=== PATIENT | male | born 1945 | race Caucasian/White ===

== ENCOUNTER 2022-08-12 07:51 | Outpatient (OUT) | payer MEDICARE, OTHER, BC, SELFPAY ==
--- NOTE | 2022-08-12 08:06 | CT_ITS ---
[place] [id number] Patient Name: REMI ZARCO MRN: [id number] date: 1945 Sex: M Assigned Patient Location: CT Current Patient Location: CT Accession/Order Number: [id number] Exam Date: 08/12/2022 08:25 Report Date: 08/12/2022 09:34 At the request of: LEXI HERNANDEZ Procedure: CT ankle LT wo con EXAMINATION: CT ankle LT wo con HISTORY: Primary Osteoarthritis Left Ankle,[id number] ; total ankle replacement protocol; left ankle partial fusion 2021 COMPARISON: XR ankle left 07/23/2022 TECHNIQUE: Multi-planar CT images were created without IV contrast. Dose reduction techniques were achieved by using automated exposure control and/or adjustment of mA and/or kV according to patient size and/or use of iterative reconstruction technique. FINDINGS: BONES: Posterior calcaneal osteotomy and repair. Posterior and anterior talocalcaneal fusion via lag screws. Talonavicular fusion via dorsal bone staple with fracture of the proximal leg of the stable. Medial cuneiform osteotomy and wedge placement. Marked degenerative changes of the first tarsal-metatarsal joint. Marked degenerative changes ankle joint with complete loss of the joint space, subchondral sclerosis, and numerous subchondral cysts. Prior knee replacement. SOFT TISSUES: Soft tissue swelling and subcutaneous edema surrounding the distal lower extremity, ankle, and foot. EFFUSION: None visible. OTHER: Negative. IMPRESSION: 1. Stable prior surgical changes. Hardware appears intact except for talonavicular bone staple which has a fracture proximal leg. 2. Advanced degenerative changes of the ankle joint. Electronically authenticated by: GERARDO AUGUSTIN Date: 08/12/2022 09:34
== END 2022-08-12 07:52 ==
PROVIDERS: PCP Family Medicine; Visit Provider Podiatrist Foot & Ankle Surgery
DX: M19.072 Primary osteoarthritis, left ankle and foot (principal); M21.072 Valgus deformity, not elsewhere classified, left ankle
CPT/HCPCS: 73700

== ENCOUNTER 2022-08-27 10:22 | Outpatient (OUT) | payer MEDICARE, OTHER, BC, SELFPAY ==
--- NOTE | 2022-08-27 10:23 | XR_ITS ---
[address] [address] Patient Name: REMI ZARCO MRN: [id number] date: 1945 Sex: M Assigned Patient Location: [facility] Current Patient Location: [facility] Accession/Order Number: [id number] Exam Date: 08/27/2022 10:23 Report Date: 08/27/2022 12:09 At the request of: CHRISTINA SZYMANSKI Procedure: XR foot LT min 3V PROCEDURE: XR foot LT min 3V HISTORY: LEFT FOOT PAIN COMPARISON: XR foot left 07/23/2022 FINDINGS: BONES:Prior calcaneal osteotomy and fusion. Hindfoot and midfoot fusion via multiple screws and a single bone staple. Prior fracture of the proximal leg of the bone staple and of one of the midfoot likely screws. Prior osteotomy and wedge placement within the medial cuneiform. Moderate degenerative changes of the talonavicular and majority of the tarsal-metatarsal joints. Flattening of the plantar arch. No appreciable acute bone fracture. SOFT TISSUES:Mild soft tissue swelling. EFFUSION:None visible. OTHER: Negative. IMPRESSION: 1. Stable surgical changes and hardware fractures as detailed above. No new findings. Electronically authenticated by: GERARDO AUGUSTIN Date: 08/27/2022 12:09
== END 2022-08-27 10:23 ==
LOC: RAD 10:23
PROVIDERS: PCP Family Medicine; Visit Provider Student in an Organized Health Care Education/Training Program
DX: M79.672 Pain in left foot (principal)
CPT/HCPCS: 73630

== ENCOUNTER 2022-10-01 12:59 | Outpatient (OUT) | payer MEDICARE, OTHER, BC, SELFPAY ==
--- NOTE | 2022-10-01 13:01 | XR_ITS ---
The [address] [address] Patient Name: REMI ZARCO MRN: [id number] date: 1945 Sex: M Assigned Patient Location: [facility] Current Patient Location: [facility] Accession/Order Number: [id number] Exam Date: 10/01/2022 13:01 Report Date: 10/01/2022 14:40 At the request of: LEXI HERNANDEZ Procedure: XR foot LT min 3V EXAM: XR foot LT min 3V HISTORY: Left foot pain after subtalar fusion and talonavicular fusion. Concern at the medial screws. COMPARISON: 08/27/2020. TECHNIQUE: 4 views left foot. FINDINGS: No interval acute fracture or dislocation left foot. Diffuse soft tissue swelling and edema. Slight continued progression of healing at the posterior calcaneal osteotomy with 2 intact internal cannulated fixation screws across the subtalar joint. There is talonavicular fixation with medial screw located 11 mm proud of the navicular cortical surface and the more lateral screw located 6 mm proud of the surface. The more lateral internal fixation screw demonstrates fracture with stable mild displacement within the talar neck region. Most laterally there is a talonavicular bone staple which demonstrates a fracture similar to prior. Prior postoperative change at the medial cuneiform with metallic wedges stable. Stable alignment of the midfoot with severe degenerative change and pes planus. XR/XR foot LT min 3V IMPRESSION: Overall similar exam compared to prior left foot with unchanged appearance to the talonavicular hardware as detailed. Electronically authenticated by: HAMILTON BAUTISTA Date: 10/01/2022 14:40
== END 2022-10-01 13:00 | disposition home or self-care (01) ==
LOC: RAD 12:59
PROVIDERS: PCP Family Medicine; Visit Provider Podiatrist Foot & Ankle Surgery
DX: M79.672 Pain in left foot (principal); T84.218A Breakdown (mechanical) of internal fixation device of other bones, initial encounter; M21.42 Flat foot [pes planus] (acquired), left foot
CPT/HCPCS: 73630

== ENCOUNTER 2022-10-31 13:50 | Outpatient (OUT) | payer MEDICARE, OTHER, BC, SELFPAY ==
--- NOTE | 2022-10-31 14:20 | CT_ITS ---
The [address] [address] Patient Name: REMI ZARCO MRN: [id number] date: 1945 Sex: M Assigned Patient Location: CT Current Patient Location: CT Accession/Order Number: [id number] Exam Date: 10/31/2022 14:15 Report Date: 10/31/2022 18:05 At the request of: LEXI HERNANDEZ Procedure: CT ankle LT wo con EXAM: CT ankle LT wo con HISTORY: Postoperative pain COMPARISON: X-ray 10/01/2022 TECHNIQUE: Axial CT imaging is performed. Sagittal and coronal reformatted/reconstructed sequences were additionally performed. FINDINGS: Patient is status post calcaneal osteotomy. The osteotomy site exhibits no discrete osseous incorporation (sagittal 74 and axial 157). 2 retrograde screws from the calcaneus extend into the talus. The posterior subtalar joint is still visualized in exhibits no arthrodesis. A screw extends from the talar neck into the calcaneus. This screw is prominent but approximately 5.27 mm of the screw head superior to the cortex of the talar neck and residing within the adjacent soft tissues. Additionally, the distal aspect of the screw extends 10.5 mm from the plantar aspect of the calcaneus into the plantar soft tissues. A dorsal skin staple of the talonavicular articulation exhibits a fracture of the proximal leg. Two distal to proximal screws through the medial navicular into the talus are proud approximately 15 mm and 9.5 mm from the cortex of the navicular, with the tips in the adjacent soft tissues. Lucency surrounds the talus components of the medial screw. Severe degenerative changes of the talocrural articulation. The talus is angulated medial within the talocrural articulation. This results in abutment of the distal fibula with the lateral talar process. 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 Electronically authenticated by: YOU GIL Date: 10/31/2022 18:05
== END 2022-10-31 13:51 | disposition home or self-care (01) ==
LOC: CT 13:50
PROVIDERS: PCP Family Medicine; Visit Provider Podiatrist Foot & Ankle Surgery
DX: M19.072 Primary osteoarthritis, left ankle and foot (principal)
CPT/HCPCS: 73700

== ENCOUNTER 2022-11-12 09:56 | Outpatient (OUT) | payer MEDICARE, OTHER, BC, SELFPAY ==
--- NOTE | 2022-11-12 | XR_ITS ---
The [address] [address] Patient Name: REMI ZARCO MRN: [id number] date: 1945 Sex: M Assigned Patient Location: [facility] Current Patient Location: [facility] Accession/Order Number: [id number] Exam Date: 11/12/2022 10:10 Report Date: 11/12/2022 10:59 At the request of: LEXI HERNANDEZ Procedure: XR foot LT min 3V PROCEDURE: XR foot LT min 3V DATE: 11/12/2022 9:10 AM CDT COMPARISONS: 10/01/2022 CLINICAL INDICATION: LEFT FOOT PAIN FINDINGS: There is no evidence of fractures or other acute osseous abnormalities. There is evidence of complete or near complete healing of the posterior os calcis osteotomy. There are multiple screws, pins and debbie of the hindfoot and midfoot, stable in appearance from previous exam. A dorsal staple shows fracture on one aspect, stable. One of the oblique mid foot screws shows fractured near its distal aspect. These are stable findings. Pes planus deformity again identified. Moderate mid foot and first metatarsal phalangeal degenerative change again identified. Diffuse soft tissue swelling about the foot is again identified. XR/XR foot LT min 3V IMPRESSION: Extensive midfoot and hindfoot postop changes. Alignment of the osseous structures remain stable. Disruption of 2 of the hardware structures remain stable.. Pes planus deformity. Diffuse soft tissue swelling. Electronically authenticated by: GAURAV LIANG Date: 11/12/2022 10:59
== END 2022-11-12 09:57 | disposition home or self-care (01) ==
LOC: RAD 09:56
PROVIDERS: PCP Family Medicine; Visit Provider Podiatrist Foot & Ankle Surgery
DX: M79.672 Pain in left foot (principal)
CPT/HCPCS: 73630

== ENCOUNTER 2022-11-12 11:14 | Outpatient (OUT) | payer MEDICARE, OTHER, BC, SELFPAY ==
[2022-11-12 12:19] LABS: Erythrocyte Sedimentation Rate 26 mm/hr (<=20)
[2022-11-12 12:31] LABS: Basophils Absolute Auto 0.1 10^3/uL (0.0-0.1); Basophils Percent Auto 0.9 % (0.2-2.0); Eosinophils Absolute Auto 0.2 10^3/uL (0.0-0.7); Eosinophils Percent Auto 3.8 % (0.9-7.0); Hematocrit 38.8 % (42.0-54.0); Immature Granulocytes Abs Auto 0.02 10^3/uL (0.00-0.03); Immature Granulocytes Pct Auto 0.4 % (0.0-0.5); Lymphocytes Absolute Auto 1.2 10^3/uL (1.2-3.8); Lymphocytes Percent Auto 20.7 % (20.5-60.0); Mean Corpuscular HGB Conc 33.5 g/dL (29.9-35.2); Mean Corpuscular Hemoglobin 29.8 pg (25.9-34.0); Mean Platelet Volume 10.4 fL (9.5-13.5); Monocytes Absolute Auto 0.4 10^3/uL (0.3-0.8); Neutrophils Absolute Auto 3.7 10^3/uL (1.4-6.5); Neutrophils Percent Auto 67.2 % (43.0-75.0); Platelet Count 203 10^3/uL (150-450); Red Blood Count 4.36 10^6/uL (4.70-6.10); Red Cell Distribution Width 14.3 % (11.0-15.0); White Blood Count 5.6 10^3/uL (4.0-11.0)
[2022-11-12 13:43] LABS: Anion Gap 10.8; BUN Creatinine Ratio 19.4; Calcium 9.2 mg/dL (8.5-10.1); Carbon Dioxide 26.6 mmol/L (21.0-32.0); Chloride 104 mmol/L (98-107); Estimated GFR (African America >60 (>=60); Estimated GFR (Non-African Ame >60 (>=60); Glucose 80 mg/dL (74-106); Potassium 4.4 mmol/L (3.5-5.1); Sodium 137 mmol/L (136-145)
== END 2022-11-12 11:15 | disposition home or self-care (01) ==
LOC: LAB 11:18
PROVIDERS: PCP Family Medicine; Visit Provider Podiatrist Foot & Ankle Surgery
DX: S91.302A Unspecified open wound, left foot, initial encounter (principal)
CPT/HCPCS: 36415; 80048; 85025; 85652

== ENCOUNTER 2022-11-26 10:16 | Outpatient (OUT) | payer MEDICARE, OTHER, BC, SELFPAY ==
--- NOTE | 2022-11-26 | XR_ITS ---
[address] [address] Patient Name: REMI ZARCO MRN: [id number] date: 1945 Sex: M Assigned Patient Location: [facility] Current Patient Location: [facility] Accession/Order Number: [id number] Exam Date: 11/26/2022 10:27 Report Date: 11/26/2022 11:36 At the request of: LEXI HERNANDEZ Procedure: XR foot LT min 3V PROCEDURE: XR foot LT min 3V HISTORY: LEFT FOOT PAIN COMPARISON: XR foot left 11/12/2022 FINDINGS: BONES:Stable hindfoot fusion and talonavicular fusion. Stable fracture of bone staple raising the talonavicular joints and of the lag screw bridging the talonavicular joint. Prior osteotomy and wedge placement within the medial cuneiform. Moderate degenerative changes of the tarsal-metatarsal joints and the first metatarsophalangeal joint, and ankle joint. SOFT TISSUES:Mild soft tissue swelling anterior to the ankle and dorsal to the distal foot. EFFUSION:None visible. OTHER: Negative. XR/XR foot LT min 3V IMPRESSION: 1. Stable surgical changes without new hardware failure. Stable fracture of the leg screw and bone staple bridging the talonavicular joint. 2. Stable multifocal degenerative changes. Electronically authenticated by: GEARRDO AUGUSTIN Date: 11/26/2022 11:36
== END 2022-11-26 10:17 | disposition home or self-care (01) ==
LOC: RAD 10:17
PROVIDERS: PCP Family Medicine; Visit Provider Podiatrist Foot & Ankle Surgery
DX: M79.672 Pain in left foot (principal)
CPT/HCPCS: 73630

== ENCOUNTER 2023-02-18 13:33 | Outpatient (OUT) | payer MEDICARE, OTHER, BC, SELFPAY ==
--- NOTE | 2023-02-18 | XR_ITS ---
The [address] [address] Patient Name: REMI ZARCO MRN: [id number] date: 1945 Sex: M Assigned Patient Location: [facility] Current Patient Location: Accession/Order Number: [id number] Exam Date: 02/18/2023 13:42 Report Date: 02/19/2023 23:15 At the request of: LEXI HERNANDEZ Procedure: XR foot LT min 3V EXAM: XR foot LT min 3V HISTORY: LEFT FOOT PAIN COMPARISON: 11/26/2022 TECHNIQUE: 4 view study FINDINGS: Again, there are complex postoperative changes with a calcaneal osteotomy bridged by 2 screws. The osteotomy line remains visible. An osteotomy with a wedge implant of the medial cuneiform is again demonstrated, stable in appearance. A staple bridges the talonavicular articulation, one of the limits fractured. A screw bridges the talonavicular articulation. Lucency within the distal navicular is seen adjacent to the screw. The screw head extends approximately 6 mm proud of the navicular cortex, unchanged from prior examination. An additional screw extends through the talar neck into the calcaneus. Again, this screw is fractured. A pes planus deformity is noted. There are degenerative changes at the tarsometatarsal articulation, most marked at the first tarsometatarsal joint. Hammertoe deformity of the second through fifth toes. XR/XR foot LT min 3V IMPRESSION: Stable postoperative findings of the hindfoot and midfoot. Osteoarthritis. Electronically authenticated by: Amna ESCALANTE Date: 02/19/2023 23:15
== END 2023-02-18 13:34 | disposition home or self-care (01) ==
LOC: RAD 13:33
PROVIDERS: PCP Family Medicine; Visit Provider Podiatrist Foot & Ankle Surgery
DX: M79.672 Pain in left foot (principal); M19.072 Primary osteoarthritis, left ankle and foot
CPT/HCPCS: 73630

== ENCOUNTER 2023-03-30 12:16 | Outpatient (OUT) | payer MEDICARE, OTHER, BC, SELFPAY ==
--- OUTSIDE RECORDS SUMMARY | 2023-03-30 12:19 | XMS_ITS | CCD ---
Author Name Unknown Address [address] [place] [address] Organization [facility] Care Team Providers Care Campus Interviews Intern Name Role Phone Gil Gee Primary Care Provider DEMETRIA, DR GERARDO Melendez Consulting Unavailable NADERER, DR GIL Fairchild Primary Care Unavailable HIGHLANDER, LEXI Melendez Attending Unavailable HIGHLANDER, LEXI Melendez Admitting Unavailable HIGHLANDER, LEXI Melendez Consulting Unavailable WEST, DR YOU Whiteside Consulting Unavailable NADERER, DR GIL Fairchild Primary Care Unavailable HIGHLANDER, LEXI Melendez Attending Unavailable HIGHLANDER, LEXI Melendez Admitting Unavailable HIGHLANDER, LEXI Melendez Consulting Unavailable NADERER, DR GIL Fairchild Consulting Unavailable NADERER, DR GIL Fairchild Primary Care Unavailable NADERER, DR GIL Fairchild Attending Unavailable NADERER, DR GIL Fairchild Admitting Unavailable NADERER, DR GIL Fairchild Primary Care Unavailable HIGHLANDER, LEXI Melendez Attending Unavailable HIGHLANDER, LEXI Melendez Admitting Unavailable HIGHLANDER, LEXI Melendez Attending Unavailable HIGHLANDER, LEXI Melendez Admitting Unavailable ZIEBER, DR GERARDO Melendez Consulting Unavailable NADERER, DR GIL Fairchild Primary Care Unavailable NADERER, DR GIL Fairchild Referring Unavailable NADERER, DR GIL Fairchild Attending Unavailable NADERER, DR GIL Fairchild Admitting Unavailable NADERER, DR GIL Fairchild Consulting Unavailable HIGHLANDER, LEXI Melendez Consulting Unavailable NADERER, DR GIL Fairchild Primary Care Unavailable HIGHLANDER, LEXI Melendez Attending Unavailable HIGHLANDER, LEXI Melendez Admitting Unavailable ZIEBER, DR GERARDO Melendez Consulting Unavailable NADERENora, DR GIL Fairchild Primary Care Unavailable JOHANA, KIRSTIE Attending Unavailable JOHANA, KIRSTIE Admitting Unavailable JOHANA, KIRSTIE Consulting Unavailable HAIEBER, DR GERARDO Melendez Consulting Unavailable NADERER, DR GIL Fairchild Primary Care Unavailable JOHANA, KIRSTIE Attending Unavailable JOHANA, KIRSTIE Admitting Unavailable JOHANA, KIRSTIE Consulting Unavailable HIGHLANDER, LEXI Melendez Consulting Unavailable NADERER, DR GIL Fairchild Primary Care Unavailable HIGHLANDER, LEXI Melendez Attending Unavailable LEXI SNOW Admitting Unavailable WALDEMAR BARRETT Consulting Unavailable WEST, DR YOU Whiteside Consulting Unavailable GERARD, DR GIL Fairchild Attending Unavailable GERARD, DR GIL Fairchild Admitting Unavailable GERARD, DR GIL Fairchild Primary Care Unavailable GERARD, DR GIL Fairchild Consulting Unavailable LEXI SNOW Consulting Unavailable TRACEY WEBER Consulting Unavailable STEPHON ., CHRISTINA ROJO Consulting Unavailable LEXI SNOW Procedure Practitioner Unava MACY Carpenter Consulting Unavailable WEST, DR YOU Whiteside Consulting Unavailable GERARD, DR GIL Fairchild Primary Care Unavailable KIRSTIE VAUGHN Attending Unavailable JOHANA, KIRSTIE Admitting Unavailable JOHANA, KIRSTIE Consulting Unavailable Yolanda Somers Unavailable DO Willie Ross Attending Provider MD Gil Gee Primary Care Provider Willie Ross Attending Unavailable Gil Gee Primary Care Unavailable Willie Ross Admitting Unavailable Vandana, Willie Admitting Unavailable Willie Ross Attending Unavailable Gerard, Gil Primary Care Unavailable Gil Gee MD Primary Care Provider WILLIE ROSS Attending Unavailable PACO MULTANI Attending Unavailable WILLIE ROSS Attending Unavailable Allergies Allergy Classification Reported Allergen(s) Allergy Type Date of Onset Reaction(s) Facility (10 sources) Morphine Drug Allergy 7 Other: See Comments [facility] (2 sources) Morphine Drug Allergy [facility] (3 sources) rosuvastatin; Translations: [rosuvastatin] Drug Allergy 3 Muscle Pain [facility] (1 source) Morphine Drug Allergy 3 [facility] Medications Current Medications Medication Drug Class(es) Dates Sig (Normalized) Sig (Original) ascorbic acid 1000 mg extended release oral tablet (4 sources) Vitamin C Start: 02-10-2023 take 1 tablet by mouth once daily in the morning Ascorbic Acid (Vitamin C) (Vitamin C) 1,000 mg Tablet Extended Release Active 1000 MG PO Every morning February 10, 2023 12:00am ascorbic acid, v itamin C, 250 mg tablet,chewable Chew and swallow. 0 Active bisoprolol fumarate 5 mg / hydroCHLOROthiazide 6.25 mg oral tablet (5 sources) Thiazide Diuretic, beta-Adrenergic Jakob Start: 02-23-2023 take 1 tablet by mouth once in the evening bisoprolol-hydroCHLOROthiazide (ZIAC) 5-6.25 mg per tablet Take 1 tablet by mouth in the evening. 90 tablet 2 02/23/2023 Active Start: 02-10-2023 take 1 tablet by nando th once daily in the morning Bisoprolol-Hydrochlorothiazide Active 1 TAB PO Every morning February 10, 2023 12:00am Bisoprolol-hydro CHLOROthiazide 5-6.25 MG Oral for 90 Days Active eplerenone 25 mg oral tablet (10 sources) Aldosterone Antagonist Start: 11-17-2022 take 1 tablet by mouth in the morning eplerenone (INSPRA) 25 mg tablet Indications: Essential hypertension , Atrial fibrillation (CMS-HCC) Take 1 tablet (25 mg total) by mouth in the morning. 90 tablet 3 11/17/2022 Active Start: 10-05-2017 take 1 tablet by nando th once daily eplerenone (INSPRA) 25 mg tablet Take 25 mg by mouth once daily. 0 10/05/2017 Active Comment on above: Take 25 mg by mouth once daily. furosemide 20 mg oral tablet (5 sources) Loop Diuretic Start: 3 take 1 tablet by mouth once daily furosemide (LASIX) 20 mg tablet Take 1 tablet (20 mg total) by mouth daily. 90 tablet 3 11/05/2022 Active levothyroxine sodium 0.1 mg oral tablet (10 sources) l-Thyroxine Start: 3 take 1 tablet by mouth once daily in the morning Levothyroxine (Synthroid) 100 mcg tablet Active 100 MCG PO Every morning February 10, 2023 12:00am Synthroid 100 MC G Oral for 90 Days Active Comment on above: Take 100 mcg by mout h daily before breakfast. meloxicam 15 mg oral tablet (10 sources) Nonsteroidal Anti-inflammatory Drug Start: 8 take 15 mg by mouth every other day Meloxicam Active 15 MG PO Q2D February 10, 2023 12:00am Comment on above: Take 15 mg by mouth once daily. Been taking one every other day [place] 8-Fea-Wxp-Fish Oil (Fish Oil) 1,200 (144-216) mg Capsule (2 sources) Start: 3 take 1 capsule by mouth once daily in the morning [place] 8-Qtg-Nkj-Fish Oil (Fish Oil) 1,200 (144-216) mg Capsule Active 1 CAP PO Every morning February 10, 2023 12:00am omega 3-rzl-erc-fish oil 300-1,000 mg capsule (2 sources) omega 3-dha-epa- fish oil 300-1,000 mg capsule Take by mouth. 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 as directed by Romel HANDY (Medication Therapy Management).. 90 tablet 1 03/11/2023 Active Start: 02-10-2023 take 1 tablet by nando once daily in the morning Warfarin (Jantoven) 4 mg tablet Active 4 MG PO Every morning February 10, 2023 12:00am 4 mg tue, wed, fri, sat, sun 2 mg mon and urs Start: 04-07-2022 End: 03-11-2023 take 1 tablet by mouth five times weekly Warfarin (Jantoven) 4 mg tablet Active 4 MG PO 5 TIMES PER WEEK February 10, 2023 12:00am 4 mg tue, wed, fri, sat, sun 2 mg mon and thurs Start: 04-07-2022 take 1 tablet by nando th two times weekly Warfarin (Jantoven) 4 mg tablet Active 2 MG PO Twice a Week February 24, 2023 12:00am 4 mg tue, wed, fri, sat, sun 2 mg mon and thurs Start: 11-27-2020 warfarin (COUM TRISTIAN) 4 mg tablet Take 2-4 mg by mouth. 0 11/27/2020 Active Comment on above: Take 2-4 mg by mouth . Completed/Discontinued Medications Medication Drug Class(es) Dates Sig (Normalized) Sig (Original) apixaban 5 mg oral tablet (1 source) Factor Xa Inhibitor Start: 09-28-2017 End: 06-14-2021 take 1 tablet by mouth twice daily ELIQUIS 5 mg tab(s) Take 5 mg by mouth twice daily. 0 09/28/2017 06/14/2021 Discontinued (Changing Therapy/Dosage Form) Comment on above: Take 5 mg by mouth t wice daily. magnesium hydroxide 80 mg/ml oral suspension (5 sources) Start: 04-08-2018 take 30 mL by mouth once daily as needed for constipation magnesium hydroxide (MOM) 400 mg/5 mL suspension Take 30 mL by mouth once daily as needed for Constipation. 473 mL 0 04/08/2018 Active Comment on above: Take 30 mL by mouth once daily as needed for Constipation. Problems Active Problems Problem Classification Problem Date Documented Da te Episodic/Chronic Cardiac dysrhythmias (3 sources) Persistent atrial fibrillation; Translations: [Other persistent atrial fibrillation] Onset: 01-12-2017 01-14-2022 Chronic Complications of surgical procedures or medical care (1 source) Disruption of external operation (surgical) wound, not elsewhere classified, initial encounter Episodic Essential hypertension (4 sources) Essential (primary) hypertension; Translations: [Essential hypertension] Onset: 01-12-2017 01-12-2017 Chronic Osteoarthritis (18 sources) Osteoarthritis of joint of left shoulder region; Translations: [Primary osteoarthritis, left shoulder] Onset: 05-21-2015 05-21-2015 Chronic Other acquired deformities (1 source) Contracture, left ankle; Translations: [CONTRACTURE LEFT ANKLE] Onset: 01-29-2022 Chronic Other aftercare (3 sources) Long-term current use of anticoagulant; Translations: [detention (current) use of anticoagulants] Onset: 07-30-2018 07-30-2018 Episodic Other bone disease and musculoskeletal deformities (1 source) Bone necrosis; Translations: [Osteonecrosis, unspecified] Chronic Other connective tissue disease (1 source) Presence of artificial knee joint, bilateral; Translations: [PRESENCE ARTIFICIAL KNEE JNT BILAT] Onset: 01-29-2022 Chronic Other connective tissue disease (6 sources) Dysfunction of posterior tibial tendon; Translations: [Posterior tibial tendinitis, unspecified leg] Onset: 07-10-2021 07-10-2021 Episodic Other connective tissue disease (5 sources) Pain in left foot; Translations: [PAIN IN LEFT FOOT] Onset: 04-10-2022 Episodic Other injuries and conditions due to external causes (1 source) Other injury of unspecified body region, initial encounter Episodic Other nervous system disorders (6 sources) Difficulty walking; Translations: [Difficulty in walking, not elsewhere classified] Onset: 07-10-2021 07-10-2021 Chronic Other non-epithelial cancer of skin (1 source) Basal cell carcinoma of skin of other parts of face; Translations: [Basal cell carcinoma of skin of other parts of face] Onset: 02-24-2023 Episodic Other non-traumatic joint disorders (5 sources) Bilateral rotator cuff arthropathy of shoulder; Translations: [Other specific arthropathies, not elsewhere classified, right shoulder] Onset: 01-04-2018 01-04-2018 Chronic Other non-traumatic joint disorders (2 sources) Instability of joint of left ankle; Translations: [Other instability, left ankle] Episodic Other non-traumatic joint disorders (2 sources) Chronic ankle pain; Translations: [Pain in left ankle and joints of left foot] Episodic Other non-traumatic joint disorders (1 source) Ankle pain; Translations: [Pain in left ankle and joints of left foot] Episodic Thyroid disorders (1 source) Hypothyroidism, unspecified; Translations: [HYPOTHYROIDISM UNSPECIFIED] Onset: 01-29-2022 Chronic Unclassified (4 sources) CONTACT W/AND (SUSP) EXPOS COVID-19; Translations: [CONTACT W/AND (SUSP) EXPOS COVID-19] Onset: 01-29-2022 Unclassified (1 source) Chronic atrial fibrillation, unspecified; Translations: [CHRONIC ATRIAL FIBRILLATION UNSPEC] Onset: 01-29-2022 Unclassified (1 source) Encounter for preprocedural laboratory examination; Translations: [Encounter for preprocedural laboratory examination] Onset: 02-10-2023 Past or Other Problems Problem Classification Problem Date Documented Da te Episodic/Chronic Acquired foot deformities (11 sources) Acquired valgus deformity of left ankle; Translations: [Valgus deformity, not elsewhere classified, left ankle] Onset: 07-10-2021 Episodic Mood disorders (2 sources) Mood disorders Onset: 12-15-2019 12-15-2019 Nonspecific chest pain (2 sources) Chest pain; Translations: [Chest pain, unspecified] Onset: 04-09-2016 Resolved: 01-14-2018 01-14-2018 Episodic Other aftercare (1 source) 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; Translations: [LITIGATION ASSISTANT CURRNT USE ANTICOAGULANTS] Onset: 01-29-2022 Episodic Other aftercare (4 sources) Other assisted (current) drug therapy; Translations: [OTH SENIOR CARE CURRENT DRUG THERAPY] Onset: 10-23-2021 Episodic Other circulatory disease (1 source) Other specified symptoms and signs involving the circulatory and respiratory systems; Translations: [OTH SPEC SX SIGNS INVLV CIRC RS] Onset: 01-29-2022 Episodic Other connective tissue disease (10 sources) Full thickness rotator cuff tear; Translations: [Complete rotator cuff tear or rupture of left shoulder, not specified as traumatic] Onset: 05-21-2015 05-21-2015 Episodic Other connective tissue disease (5 sources) Rotator cuff arthropathy of right shoulder; Translations: [Unspecified rotator cuff tear or rupture of right shoulder, not specified as traumatic] Onset: 01-27-2018 01-27-2018 Episodic Other connective tissue disease (5 sources) Rotator cuff arthropathy of left shoulder; Translations: [Unspecified rotator cuff tear or rupture of left shoulder, not specified as traumatic] Onset: 01-27-2018 02-16-2018 Episodic Other ear and sense organ disorders (2 sources) Otalgia, left ear; Translations: [Otalgia, unspecified] Onset: 12-15-2019 12-15-2019 Episodic Other lower respiratory disease (1 source) Other nonspecific abnormal finding of lung field; Translations: [OTH NONSPECIFIC ABN FIND LNG FIELD] Onset: 10-24-2021 Episodic Other lower respiratory disease (2 sources) Dyspnea; Translations: [Shortness of breath] Onset: 04-09-2016 07-13-2017 Episodic Other non-traumatic joint disorders (1 source) Other instability, left ankle; Translations: [OTHER INSTABILITY LEFT ANKLE] Onset: 01-29-2022 Episodic Loren-; endo-; and myocarditis; cardiomyopathy (except that caused by tuberculosis or sexually transmitted disease) (1 source) Pericardial effusion (noninflammatory); Translations: [PERICARDIAL EFFUSION NONINFLAMM] Onset: 10-24-2021 Episodic Unclassified (1 source) CONTACT W/AND (SUSP) EXPOS COVID-19; Translations: [CONTACT W/AND (SUSP) EXPOS COVID-19] Onset: 06-04-2022 Results Test Name Value Interpretation Reference Range Facility Activated partial thrombopla stin time (aPTT) in platelet poor plasma by coagulation aOrdered By: YOU RAMIREZ on 02-24-2023 aPTT Coag (PPP) [Time] 30.8 s 25.1-36.5 [facility] Comment on above: A hematocrit value g reater than 55% may lead to inaccurate results in coagulation testing. Patients having hematocrit values >55% require a special collection tube for coagulation studies. Please contact the laboratory at [phone] for redraw instructions. Coagulation Profileon 2022 aPTT Coag (Bld) [Time] 30.8 s Normal 25.1-36.5 [facility] Comment on above: Result Comment: A he matocrit value greater than 55% may lead to inaccurate results in coagulation testing. Patients having hematocrit values >55% require a special collection tube for coagulation studies. Please contact the laboratory at [phone] for redraw instructions. PERFORMED BY: [address] [id number] PATHOLOGIST BREAD PAN GREASER QING BABB M.D. Performed By: #### P P #### [facility] [address] [place], [place] [id number] [facility] INR Coag (PPP) [Relative time] 1.2 {INR} Normal [facility] Comment on above: Result Comment: INR Therapeutic Range A) Pre- and Peroperative OAT started two weeks before surgery. NOT HIP SURGERY: 1.5 - 2.5 HIP SURGERY: 2 - 3 B) Primary and secondary prevention of venous THROMBOSIS: 2 - 3 C) Active venous thrombosis, pulmonary embolism and prevention of recurrent venous thrombosis: 2 - 3 D) Prevention of arterial thromboembolism including patients with mechanical heart valves: 3 - 4.5 Performed By: #### P P #### [facility] [address] [place] [address] PT Coag (PPP) [Time] 13.9 s High 9.0-12.9 [facility] Comment on above: Result Comment: A he matocrit value greater than 55% may lead to inaccurate results in coagulation testing. Patients having hematocrit values >55% require a special collection tube for coagulation studies. Please contact the laboratory at [phone] for redraw instructions. Performed By: #### P P #### [facility] [address] INR in Platelet poor plasma by Coagulation assayOrdered By: YOU RAMIREZ on 02-24-2023 INR Coag (PPP) [Relative time] 1.2 {INR} [facility] Comment on above: INR Therapeutic Rang e A) Pre- and Peroperative OAT started two weeks before surgery. NOT HIP SURGERY: 1.5 - 2.5 HIP SURGERY: 2 - 3B) Primary and secondary prevention of venous THROMBOSIS: 2 - 3C) Active venous thrombosis, pulmonary embolismand prevention of recurrent venous thrombosis: 2 - 3D) Prevention of arterial thromboembolismincluding patients with mechanical heart valves: 3 - 4.5 Jose 02-24-2023 L ------ Specimen: [id number] Received: 02/24/23 Status: MIK Whitmore Num: [id number] Spec Type: Surgical Subm Dr: Willie Ross DO Tissues: A Skin-Other than Cyst, tag, debridement or plastic repair (LT CHEEK) B Skin-Other than Cyst, tag, debridement or plastic repair (RT SHINTO) Procedures: HE/6, Gross/Micro L4/2, FS HE/6 Age/ Patient Sex Location Account Attending Physician Remi Zarco 77/M [place] [id number] Willie Ross,DO SPEC NUM: [id number] RECD: 02/24/23 STATUS: MIK WHITMORE NUM: [id number] ARIAN: 02/24/[address] [facility] DR: Willie Ross DO ENTERED: 02/24/[address]: MARY ANNE TYPE: Surgical DEPT: S ORDERED: HE/6, Gross/Micro L4/2, FS HE/6 ORDERED: HE/6, Gross/Micro L4/2, FS HE/6 Pathological Diagnosis A. Skin, left cheek, excision: - Basal cell carcinoma of the large, sclerosing, and mildly metatypical types in all central transverse sections examined - No evidence of lymphovascular or perineural invasion identified, but with a tiny focus of Juxta-neural invasion noted, which otherwise is also far away from deep margin - All margins are evidently negative for malignancy B. Skin, right spiritism, excision: - Benign seborrheic keratosis of the mixed reticular, mildly pigmented, and the usual plaque types - Incidental occasional mild colonizations of dermatophyte spores of note - Adequately removed for assessment, and no evidence of malignancy, squamous dysplasia, or nevoid atypia identified Specimen: [id number] Received: 02/24/23 Status: MIK Whitmore Num: [id number] Spec Type: Surgical Subm Dr: Willie Ross DO Tissues: A Skin-Other than Cyst, tag, debridement or plastic repair (LT CHEEK) B Skin-Other than Cyst, tag, debridement or plastic repair (RT SHINTO) Procedures: HE/6, Gross/Micro L4/2, FS HE/6 Patient: Remi Zarco [id number] (Continued) Specimen: [id number] Received: 02/24/23 (Continued) Signed (signature on file) Oseas Lai MD 02/25/23 1518 Specimen: [id number] Received: 02/24/23 Status: MIK Whitmore Num: [id number] Spec Type: Surgical Subm Dr: Willie W Murcek,DO Tissues: A Skin-Other than Cyst, tag, debridement or plastic repair (LT CHEEK) B Skin-Other than Cyst, tag, debridement or plastic repair (RT SHINTO) Procedures: HE/6, Gross/Micro L4/2, FS HE/6 Patient: Remi Zarco [id number] (Continued) Specimen: [id number] Received: 02/24/23-1323 (Continued) Clinical Information A) basal cell skin cancer, margins only, long medial, short inferior; B) basal cell skin cancer margins only, suture sanchez inferior Gross Description A. Received fresh labeled with the patient's name, date of and left cheek basal cell carcinoma is a 1.7 x 1.3 x 0.3 cm rectangular excision of mulligan-white skin with a central area of depression consistent with scar. There is a long suture marking medial (9:00) and a short suture marking inferior (6:00). The 12-3 to 6:00 margin is inked black, the 6-9 o'clock margin is inked blue and the 9-12 o'clock margin is inked red. The 12:00 edge is submitted en face for frozen section evaluation as FS A1. The 6:00 edge is submitted en face for frozen section evaluation as FS A2. The remainder of the specimen is submitted for frozen section evaluation as FS A3.. Entirely submitted in 3 cassettes as follows: A1 - Frozen section remnant?FS A1 A2 - Frozen section remnant?FS A2 A3 - Frozen section remnant?FS A3 B. Received in formalin labeled with the patient's name, date of and right spiritism skin lesion is a 1.7 x 0.7 x 0.2 cm ellipse of mulligan-white skin with a central 0.5 x 0.3 cm mulligan-schofield nodular lesion. There is a suture along one edge designating inferior (6:00). The 9-12 to 3:00 margin is inked black, the 3-6 o'clock margin is inked blue and the 6-9 o'clock margin is inked red. The specimen is transversely sectioned. Entirely submitted in 3 cassettes as follows: B1 - 3:00 tip B (more content not included)... Normal [facility] Prothrombin time (PT)Ordered By: YOU RAMIREZ on 02-24-2023 PT Coag (PPP) [Time] 13.9 s 9.0-12.9 [facility] Comment on above: A hematocrit value g reater than 55% may lead to inaccurate results in coagulation testing. Patients having hematocrit values >55% require a special collection tube for coagulation studies. Please contact the laboratory at [phone] for redraw instructions. Basic Metabolic Panelon 12 Anion gap [Moles/Vol] 8.9 mmol/L Normal 6.0-15.0 [facility] Comment on above: Performed By: #### C BC, BMP #### [address] Calcium [Mass/Vol] 9.3 mg/dL Normal 8.6-10.3 [facility] Comment on above: Result Comment: PERF ORMED BY: [facility] [address] [place] [address] PATHOLOGIST BREAD PAN GREASER QING BABB M.D. Performed By: #### C BC, BMP #### [facility] [address] [place] [address] [place] Chloride [Moles/Vol] 105 mmol/L Normal 98-107 [facility] Comment on above: Performed By: #### C BC, BMP #### [facility] [address] [place] [id number] [place] CO2 [Moles/Vol] 28.3 mmol/L Normal 21.0-31.0 [facility] Comment on above: Performed By: #### C BC, BMP #### [facility] [address] Creatinine [Mass/Vol] 1.19 mg/dL Normal 0.70-1.30 [facility] Comment on above: Performed By: #### C BC, BMP #### [facility] [address] [place] [address] [place] GFR/1.73 sq M.predicted MDRD (S/P/Bld) [Vol rate/Area] mL/min/{1.73_m2} Normal [facility] Comment on above: Performed By: #### C BC, BMP #### [address] Glucose [Mass/Vol] 93 mg/dL Normal 70-100 [facility] Comment on above: Result Comment: [place] Glucose Reference Range is dependent on time and content of last meal. Glucose of more than 200 mg/dL in a nonstressed, ambulatory subject supports the diagnosis of Diabetes Mellitus. ADA recommended reference range Performed By: #### C BC, BMP #### [facility] [address] [place] [address] [place] Potassium [Moles/Vol] 4.2 mmol/L Normal 3.5-5.1 [facility] Comment on above: Performed By: #### C BC, BMP #### [facility] [address] [place] [address] [place] Sodium [Moles/Vol] 138 mmol/L Normal 136-145 [facility] Comment on above: Performed By: #### C BC, BMP #### [facility] [address] [place] [address] [place] Urea nitrogen [Mass/Vol] 21 mg/dL Normal 7-25 [facility] Comment on above: Performed By: #### C BC, BMP #### [facility] [address] [place] [address] [place] Basophils Auto (Bld) [#/Vol] Ordered By: Willie Ross on 02-10-2023 Basophils (Bld) [#/Vol] 0.1 10*3/uL 0.0-0.2 [facility] Basophils/100 WBC Auto (Bld) Ordered By: Willie Ross on 02-10-2023 Basophils/100 WBC (Bld) 1.2 % . [facility] Calcium [Mass/volume] in Ser um or PlasmaOrdered By: Willie Ross on 02-10-2023 Calcium [Mass/Vol] 9.3 mg/dL 8.6-10.3 [facility] Carbon dioxide, total [Moles /volume] in Serum or PlasmaOrdered By: Willie Ross on 02-10-2023 CO2 [Moles/Vol] 28.3 mmol/L 21.0-31.0 [facility] Chloride [Moles/volume] in S est[place] or PlasmaOrdered By: Willie Ross on 02-10-2023 Chloride [Moles/Vol] 105 mmol/L 98-107 [facility] Complete Blood Count Auto Di ffon 02-10-2023 Basophils (Bld) [#/Vol] 0.1 10*3/uL Normal 0.0-0.2 [facility] Comment on above: Result Comment: PERF ORMED BY: [place] [address] PATHOLOGIST BREAD PAN GREASER QING BABB M.D. Performed By: #### C BC, BMP #### [facility] [address] Basophils/100 WBC (Bld) 1.2 % Normal . [facility] Comment on above: Performed By: #### C BC, BMP #### [facility] [address] [place] [address] [place] Eosinophils (Bld) [#/Vol] 0.2 10*3/uL Normal 0.0-0.45 [facility] Comment on above: Performed By: #### C BC, BMP #### [facility] [address] [place] [address] [place] Eosinophils/100 WBC (Bld) 3.7 % Normal . [facility] Comment on above: Performed By: #### C BC, BMP #### [facility] [address] Erythrocyte distribution width (RBC) [Ratio] 14.4 % Normal 12.0-14.8 [facility] Comment on above: Performed By: #### C BC, BMP #### [facility] [address] Hematocrit (Bld) [Volume fraction] 37.2 % Low 38.8-50.0 [facility] Comment on above: Performed By: #### C BC, BMP #### [address] Hemoglobin (Bld) [Mass/Vol] 12.8 g/dL Low 13.0-17.0 [facility] Comment on above: Performed By: #### C BC, BMP #### [address] Lymphocytes (Bld) [#/Vol] 1.2 10*3/uL Normal 1.00-4.8 [facility] Comment on above: Performed By: #### C BC, BMP #### [address] Lymphocytes/100 WBC (Bld) 23.4 % Normal . [facility] Comment on above: Performed By: #### C BC, BMP #### [address] MCH (RBC) [Entitic mass] 30.3 pg Normal 27.5-35.2 [facility] Comment on above: Performed By: #### C BC, BMP #### [address] MCV (RBC) [Entitic vol] 87.9 fL Normal 83.5-101 [facility] Comment on above: Performed By: #### C BC, BMP #### [address] Mean Corpuscular HGB Conc 34.5 g/dL Normal 32.5-35.6 [facility] Comment on above: Performed By: #### C BC, BMP #### [facility] [address] [place] [address] [place] Monocytes (Bld) [#/Vol] 0.3 10*3/uL Normal 0.0-0.8 [facility] Comment on above: Performed By: #### C BC, BMP #### [facility] [address] [place] [address] [place] Monocytes/100 WBC (Bld) 6.8 % Normal . [facility] Comment on above: Performed By: #### C BC, BMP #### [facility] [address] Neutrophils (Bld) [#/Vol] 3.3 10*3/uL Normal 1.8-7.7 [facility] Comment on above: Performed By: #### C BC, BMP #### [address] Neutrophils/100 WBC (Bld) 64.9 % Normal . [facility] Comment on above: Performed By: #### C BC, BMP #### [address] NRBC% 0.1 /100{WBC} Normal 0-0.5 [facility] Comment on above: Performed By: #### C BC, BMP #### [address] Platelet mean volume (Bld) [Entitic vol] 7.9 fL Normal 6.6-10.1 [facility] Comment on above: Performed By: #### C BC, BMP #### [place] [address] [place] Platelets (Bld) [#/Vol] 203 10*3/uL Normal 150-450 [facility] Comment on above: Performed By: #### C BC, BMP #### [place] [address] [place] RBC (Bld) [#/Vol] 4.23 10*6/uL Normal 3.90-5.60 [facility] Comment on above: Performed By: #### C BC, BMP #### [facility] [address] [place] [address] [place] WBC (Bld) [#/Vol] 5.1 10*3/uL Normal 4.1-10.5 [facility] Comment on above: Performed By: #### C BC, BMP #### [facility] [address] Creatinine [Mass/volume] in Serum or PlasmaOrdered By: Willie Ross on 02-10-2023 Creatinine [Mass/Vol] 1.19 mg/dL 0.70-1.30 [facility] Eosinophils Auto (Bld) [#/Vo l]Ordered By: Willie Ross on 02-10-2023 Eosinophils (Bld) [#/Vol] 0.2 10*3/uL 0.0-0.45 [facility] Eosinophils/100 WBC Auto (Bl d)Ordered By: Willie Ross on 02-10-2023 Eosinophils/100 WBC (Bld) 3.7 % . [facility] Erythrocyte distribution wid th Auto (RBC) [Ratio]Ordered By: Willie Ross on 02-10-2023 Erythrocyte distribution width (RBC) [Ratio] 14.4 % 12.0-14.8 [facility] Glucose [Mass/volume] in Ser um or PlasmaOrdered By: Willie Ross on 02-10-2023 Glucose [Mass/Vol] 93 mg/dL 70-100 [facility] Comment on above: ADA recommended refe rence rangeRandom Glucose Reference Range is dependent on time and content of last meal. Glucose of more than 200 mg/dL in a nonstressed, ambulatory subject supports the diagnosis of Diabetes Mellitus. Hematocrit Auto (Bld) [Volum e fraction]Ordered By: Willie Ross on 02-10-2023 Hematocrit (Bld) [Volume fraction] 37.2 % 38.8-50.0 [facility] Hemoglobin [Mass/volume] in BloodOrdered By: Willie Ross on 02-10-2023 Hemoglobin (Bld) [Mass/Vol] 12.8 g/dL 13.0-17.0 [facility] Leukocytes [#/volume] correc aster for nucleated erythrocytes in Blood by Automated counOrdered By: Willie Ross on 02-10-2023 WBC corrected for nucl RBC Auto (Bld) [#/Vol] 5.1 10*3/uL 4.1-10.5 [facility] Lymphocytes Auto (Bld) [#/Vo l]Ordered By: Willie Ross on 02-10-2023 Lymphocytes (Bld) [#/Vol] 1.2 10*3/uL 1.00-4.8 [facility] Lymphocytes/100 WBC Auto (Bl d)Ordered By: Willie Ross on 02-10-2023 Lymphocytes/100 WBC (Bld) 23.4 % . [facility] MCH Auto (RBC) [Entitic mass ]Ordered By: Willie Ross on 02-10-2023 MCH (RBC) [Entitic mass] 30.3 pg 27.5-35.2 [facility] MCHC Auto (RBC) [Mass/Vol]Or dered By: Willie Ross on 02-10-2023 MCHC (RBC) [Mass/Vol] 34.5 g/dL 32.5-35.6 [facility] MCV Auto (RBC) [Entitic vol] Ordered By: Willie Ross on 02-10-2023 MCV (RBC) [Entitic vol] 87.9 fL 83.5-101 [facility] Monocytes Auto (Bld) [#/Vol] Ordered By: Willie Ross on 02-10-2023 Monocytes (Bld) [#/Vol] 0.3 10*3/uL 0.0-0.8 [facility] Monocytes/100 WBC Auto (Bld) Ordered By: Willie Ross on 02-10-2023 Monocytes/100 WBC (Bld) 6.8 % . [facility] Neutrophils Auto (Bld) [#/Vo l]Ordered By: Willie Ross on 02-10-2023 Neutrophils (Bld) [#/Vol] 3.3 10*3/uL 1.8-7.7 [facility] Neutrophils/100 WBC Auto (Bl d)Ordered By: Willie Ross on 02-10-2023 Neutrophils/100 WBC (Bld) 64.9 % . [facility] No Panel InformationOrdered By: Willie Ross on 02-10-2023 Estimated GFR (CKD-EPI) > 60.0 mL/Min [facility] Creatinine Clearance (Chem N/A [facility] Nucleated erythrocytes [Pres ence] in Blood by Automated countOrdered By: Willie Ross on 02-10-2023 Nucleated RBC Auto Ql (Bld) 0.1 /100{WBC} 0-0.5 [facility] Platelet mean volume Auto (B ld) [Entitic vol]Ordered By: Willie Ross on 02-10-2023 Platelet mean volume (Bld) [Entitic vol] 7.9 fL 6.6-10.1 [facility] Platelets Auto (Bld) [#/Vol] Ordered By: Willie Ross on 02-10-2023 Platelets (Bld) [#/Vol] 203 10*3/uL 150-450 [facility] Potassium [Moles/volume] in Serum or PlasmaOrdered By: Willie Ross on 02-10-2023 Potassium [Moles/Vol] 4.2 mmol/L 3.5-5.1 [facility] RBC Auto (Bld) [#/Vol]Ordere d By: Willie Ross on 02-10-2023 RBC (Bld) [#/Vol] 4.23 10*6/uL 3.90-5.60 [facility] Serum or plasma anion gap de terminationOrdered By: Willie Ross on 02-10-2023 Anion gap [Moles/Vol] 8.9 mmol/L 6.0-15.0 [facility] Sodium [Moles/volume] in Ser um or PlasmaOrdered By: Willie Ross on 02-10-2023 Sodium [Moles/Vol] 138 mmol/L 136-145 [facility] Urea nitrogen [Mass/volume] in Serum or PlasmaOrdered By: Willie Ross on 02-10-2023 Urea nitrogen [Mass/Vol] 21 mg/dL 7-25 [facility] WBC Auto (Bld) [#/Vol]Ordere d By: Willie Ross on 02-10-2023 WBC (Bld) [#/Vol] 5.1 10*3/uL 4.1-10.5 [facility] RESPIRATORY PANEL PLUSon Adenovirus Not detected Normal NOT DETECTED [facility] Comment on above: Performed By: #### P OCGLUC #### [facility] [address] [place] [address] Dr. Saskia Arzate Parapertusis Not detected Normal NOT DETECTED [facility] Comment on above: Performed By: #### P OCGLUC #### [facility] [address] [place] [address] Dr. Saskia Arzate Pertussis Not detected Normal NOT DETECTED [facility] Comment on above: Performed By: #### P OCGLUC #### [facility] [address] [place] [address] Dr. Saskia Lai Chlamydia Pneumoniae Not detected Normal NOT DETECTED [facility] Comment on above: Performed By: #### P OCGLUC #### [facility] [address] [place] [address] Dr. Saskia Lai Coronavirus 229E Not detected Normal NOT DETECTED [facility] Comment on above: Performed By: #### P OCGLUC #### [facility] [address] [place] [address] Dr. Saskia Lai Coronavirus HKU1 Not detected Normal NOT DETECTED [facility] Comment on above: Performed By: #### P OCGLUC #### [facility] [address] [place] [address] Dr. Saskia Lai Coronavirus NL63 Not detected Normal NOT DETECTED [facility] Comment on above: Performed By: #### P OCGLUC #### [facility] [address] [place] [address] Dr. Saskia Lai Coronavirus OC43 Not detected Normal NOT DETECTED [facility] Comment on above: Performed By: #### P OCGLUC #### [facility] [address] [place] [address] Dr. Saskia Lai Influenza A H1 Not detected Normal NOT DETECTED [facility] Comment on above: Performed By: #### P OCGLUC #### [facility] [address] [place] [address] Dr. Saskia Lai Influenza A H1 2009 Not detected Normal NOT DETECTED [facility] Comment on above: Performed By: #### P OCGLUC #### [facility] [address] [place] [address] Dr. Saskia Lai Influenza A H3 Not detected Normal NOT DETECTED [facility] Comment on above: Performed By: #### P OCGLUC #### [facility] [address] [place] [address] Dr. Saskia Lai Influenza B Not detected Normal NOT DETECTED [facility] Comment on above: Performed By: #### P OCGLUC #### [facility] [address] [place] [address] Dr. Saskia Lai Metapneumovirus Detected Abnormal NOT DETECTED [facility] Comment on above: Performed By: #### P OCGLUC #### [facility] [address] [place] [address] Dr. Saskia Lai Mycoplas. Pneumoniae Not detected Normal NOT DETECTED [facility] Comment on above: Performed By: #### P OCGLUC #### [facility] [address] [place] [address] Dr. Saskia Lai Parainfluenza 1 Not detected Normal NOT DETECTED [facility] Comment on above: Performed By: #### P OCGLUC #### [facility] [address] [place] [address] Dr. Saskia Lai Parainfluenza 2 Not detected Normal NOT DETECTED [facility] Comment on above: Performed By: #### P OCGLUC #### [facility] [address] [place] [address] Dr. Saskia Lai Parainfluenza 3 Not detected Normal NOT DETECTED [facility] Comment on above: Performed By: #### P OCGLUC #### [facility] [address] [place] [address] Dr. Saskia Lai Parainfluenza 4 Not detected Normal NOT DETECTED [facility] Comment on above: Performed By: #### P OCGLUC #### [facility] [address] [place] [address] Dr. Saskia Lai Rhino/Enterovirus Not detected Normal NOT DETECTED [facility] Comment on above: Performed By: #### P OCGLUC #### [facility] [address] [place] [address] Dr. Saskia Lai RP2 Header 1 RESPIRATORY PANEL: VIRUSES Normal [facility] Comment on above: Performed By: #### P OCGLUC #### [facility] [address] [place] [address] Dr. Saskia Lai RP2 Header 2 RESPIRATORY PANEL: BACTERIA Normal [facility] Comment on above: Performed By: #### P OCGLUC #### [facility] [address] [place] [address] Dr. Saskia Lai RSV Not detected Normal NOT DETECTED [facility] Comment on above: Performed By: #### P OCGLUC #### [facility] [address] [place] [address] Dr. Saskia Lai SARS-CoV-2 (COVID-19) RNA TOSHA+probe Ql (Unsp spec) Not detected Normal NOT DETECTED [facility] Comment on above: Performed By: #### P OCGLUC #### [facility] [address] [place] [address] Dr. Saskia Lai CBC AUTO DIFFon 01-08-2022 BASO # 0.0 103/ul Normal 0.0-0.1 [facility] Comment on above: Performed By: #### C BC #### [facility] [address] [place] [address] Dr. Saskia Lai Basophils/100 WBC (Bld) 0.2 % Normal 0.2-2.0 [facility] Comment on above: Performed By: #### C BC #### [facility] [address] [place] [address] Dr. Saskia Lai EO # 0.1 103/ul Normal 0.0-0.7 [facility] Comment on above: Performed By: #### C BC #### [facility] [address] [place] [address] Dr. Saskia Lai Eosinophils/100 WBC (Bld) 0.8 % Critically low 0.9-7.0 [facility] Comment on above: Performed By: #### C BC #### [facility] [address] [place] [address] Dr. Saskia Lai Erythrocyte distribution width (RBC) [Ratio] 14.6 % Normal 11.0-15.0 [facility] Comment on above: Performed By: #### C BC #### [facility] [address] [place] [address] Dr. Saskia Lai Hematocrit (Bld) [Volume fraction] 32.5 % Critically low 42.0-54.0 [facility] Comment on above: Performed By: #### C BC #### [facility] [address] [place] [address] Dr. Saskia Lai Hemoglobin (Bld) [Mass/Vol] 10.8 g/dL Critically low 14.0-18.0 [facility] Comment on above: Performed By: #### C BC #### [facility] [address] [place] [address] Dr. Saskia Lai IG # 0.02 10e3/ul Normal 0.00-0.03 [facility] Comment on above: Performed By: #### C BC #### [facility] [address] [place] [address] Dr. Saskia Lai IG % 0.2 % Normal 0.0-0.5 [facility] Comment on above: Performed By: #### C BC #### [facility] [address] [place] [address] Dr. Saskia Lai LYMPH # 1.2 103/ul Normal 1.2-3.8 [facility] Comment on above: Performed By: #### C BC #### [facility] [address] [place] [address] Dr. Saskia Lai Lymphocytes/100 WBC (Bld) 12.3 % Critically low 20.5-60.0 [facility] Comment on above: Performed By: #### C BC #### [facility] [address] [place] [address] Dr. Saskia Lai MANUAL DIFF REQ NO Normal [facility] Comment on above: Performed By: #### C BC #### [facility] [address] [place] [address] Dr. Saskia Lai MCH (RBC) [Entitic mass] 29.8 pg Normal 25.9-34.0 [facility] Comment on above: Performed By: #### C BC #### [facility] [address] [place] [address] Dr. Saskia Lai MCHC (RBC) [Mass/Vol] 33.2 g/dL Normal 29.9-35.2 [facility] Comment on above: Performed By: #### C BC #### [facility] [address] [place] [address] Dr. Saskia Lai MCV (RBC) [Entitic vol] 89.8 fL Normal 80.0-94.0 [facility] Comment on above: Performed By: #### C BC #### [facility] [address] [place] [address] Dr. Saskia Lai MONO # 0.7 103/ul Normal 0.3-0.8 [facility] Comment on above: Performed By: #### C BC #### [facility] [address] [place] [address] Dr. Saskia Lai Monocytes/100 WBC (Bld) 7.1 % Normal 1.7-12.0 [facility] Comment on above: Performed By: #### C BC #### [facility] [address] [place] [address] Dr. Saskia Lai NEUT # 7.6 103/ul Critically high 1.4-6.5 [facility] Comment on above: Performed By: #### C BC #### [facility] [address] [place] [address] Dr. Saskia Lai Neutrophils/100 WBC (Bld) 79.4 % Critically high 43.0-75.0 [facility] Comment on above: Performed By: #### C BC #### [facility] [address] [place] [address] Dr. Saskia Lai Platelet mean volume (Bld) [Entitic vol] 10.5 fL Normal 9.5-13.5 [facility] Comment on above: Performed By: #### C BC #### [facility] [address] [place] [address] Dr. Saskia Lai PLT 172 103/ul Normal 150-450 [facility] Comment on above: Performed By: #### C BC #### [facility] [address] [place] [address] Dr. Saskia Lai RBC 3.62 106/ul Critically low 4.70-6.10 [facility] Comment on above: Performed By: #### C BC #### [facility] [address] [place] [address] Dr. Saskia Lai WBC 9.6 103/ul Normal 4.0-11.0 [facility] Comment on above: Performed By: #### C BC #### [facility] [address] [place] [address] Dr. Saskia Lai Covid-19 PCR ([facility])on SARS-CoV-2 (COVID-19) RNA TOSHA+probe Ql (Unsp spec) Not detected Normal NOT DETECTED [facility] Comment on above: Result Comment: When diagnostic testing is negative, the possibility of a false negative should be considered in the context of a patient's recent exposures and the presence of clinical signs and symptoms consistent with SARS-CoV-2. This test is not yet approved or cleared by the [place] FDA. When there are no FDA-approved or cleared tests available, and other criteria are met, FDA can make tests available under an emergency access mechanism called an Emergency Use Authorization (EUA). The EUA for this test is supported by the [place] of Health and Human Service's declaration that circumstances exist to justify the emergency use of in vitro diagnostics for the detection and/or diagnosis of the virus that causes COVID-19. This EUA will remain in effect for the duration of the COVID-19 declaration justifying emergency of IVDs, unless it is terminated or revoked by the FDA (after which the test may no longer be used). Performed By: #### C VDTBH #### [facility] [address] [place] [address] Dr. Saskia Lai PROF CHEM 8 (BAS METB)on Anion gap [Moles/Vol] 10.6 mmol/L Normal Th [facility] Comment on above: Performed By: #### C VDTBH #### [facility] [address] [address] [address] Saskia Lai Calcium [Mass/Vol] 8.8 mg/dL Normal 8.5-10.1 [facility] Comment on above: Performed By: #### C VDTBH #### [facility] [address] [address] [address] Saskia Lai Chloride [Moles/Vol] 104 mmol/L Normal 98-107 [facility] Comment on above: Performed By: #### C VDTBH #### [facility] [address] [place] [address] Dr. Saskia Lai CO2 [Moles/Vol] 26.8 mmol/L Normal 21.0-32.0 [facility] Comment on above: Performed By: #### C VDTBH #### [facility] [address] [place] [address] Dr. Saskia Lai Creatinine [Mass/Vol] 1.18 mg/dL Normal 0.70-1.30 [facility] Comment on above: Performed By: #### C VDTBH #### [facility] [address] [place] [address] Dr. Saskia Lai EGFR-AF PORTUGUESE >60 Normal >=60 [facility] Comment on above: Performed By: #### C VDTBH #### [facility] [address] [place] [address] Dr. Saskia Lai EGFR-NON AF [place] 60 mL/min/1.73m2 Normal >=60 [facility] Comment on above: Performed By: #### C VDTBH #### [facility] [address] [place] [address] Dr. Saskia Lai Glucose [Mass/Vol] 102 mg/dL Normal 74-106 [facility] Comment on above: Performed By: #### C VDTBH #### [facility] [address] [place] [address] Dr. Saskia Lai Potassium [Moles/Vol] 4.4 mmol/L Normal 3.5-5.1 [facility] Comment on above: Performed By: #### C VDTBH #### [facility] [address] [place] [address] Dr. Saskia Lai Sodium [Moles/Vol] 137 mmol/L Normal 136-145 [facility] Comment on above: Performed By: #### C VDTBH #### [facility] [address] [place] [address] Dr. Saskia Lai Urea nitrogen [Mass/Vol] 32.0 mg/dL Critically high 7.0-18.0 [facility] Comment on above: Performed By: #### C VDTBH #### [facility] [address] [place] [address] Dr. Saskia Lai Urea nitrogen/Creatinine [Mass ratio] 27.1 mg/mg Normal [facility] Comment on above: Performed By: #### C VDTBH #### [facility] [address] [place] [address] Dr. Saskia Lai PROTIMEon 01-08-2022 INR Coag (PPP) [Relative time] 1.28 {INR} Normal [facility] Comment on above: Performed By: #### C VDTBH #### [facility] [address] [place] [address] Dr. Saskia Lai INR GUIDELINES SEE BELOW Normal [facility] Comment on above: Result Comment: GABI RED INR: 2.0 - 3.0 CONDITIONS NOT LISTED BELOW 2.5 - 3.5 FOR PROSTHETIC HEART VALVE REPLACEMENT 2.5 - 3.5 RECURRENT THROMBOSIS Performed By: #### C VDTBH #### [facility] [address] [place] [address] Dr. Saskia Lai PT Coag (PPP) [Time] 13.6 s Critically high 9.0-11.6 [facility] Comment on above: Performed By: #### C VDTBH #### [facility] [address] [place] [address] Dr. Saskia Lai CBC AUTO DIFFon 01-07-2022 BASO # 0.0 103/ul Normal 0.0-0.1 [facility] Comment on above: Performed By: #### P OCGLUC #### [facility] [address] [address] [address] Saskia Lai Basophils/100 WBC (Bld) 0.1 % Critically low 0.2-2.0 [facility] Comment on above: Performed By: #### P OCGLUC #### [facility] [address] [place] [address] Dr. Saskia Lai EO # 0.0 103/ul Normal 0.0-0.7 [facility] Comment on above: Performed By: #### P OCGLUC #### [facility] [address] [place] [address] Dr. Saskia Lai Eosinophils/100 WBC (Bld) 0.0 % Critically low 0.9-7.0 [facility] Comment on above: Performed By: #### P OCGLUC #### [facility] [address] [place] [address] Dr. Saskia Lai Erythrocyte distribution width (RBC) [Ratio] 14.5 % Normal 11.0-15.0 [facility] Comment on above: Performed By: #### P OCGLUC #### [facility] [address] [place] [address] Dr. Saskia Lai Hematocrit (Bld) [Volume fraction] 34.4 % Critically low 42.0-54.0 [facility] Comment on above: Performed By: #### P OCGLUC #### [facility] [address] [place] [address] Dr. Saskia Lai Hemoglobin (Bld) [Mass/Vol] 11.6 g/dL Critically low 14.0-18.0 [facility] Comment on above: Performed By: #### P OCGLUC #### [facility] [address] [place] [address] Dr. Saskia Lai IG # 0.05 10e3/ul Critically high 0.00-0.03 [facility] Comment on above: Performed By: #### P OCGLUC #### [facility] [address] [place] [address] Dr. Saskia Lai IG % 0.3 % Normal 0.0-0.5 [facility] Comment on above: Performed By: #### P OCGLUC #### [facility] [address] [address] [address] Saskia Lai LYMPH # 0.9 103/ul Critically low 1.2-3.8 [facility] Comment on above: Performed By: #### P OCGLUC #### [facility] [address] [address] [address] Saskia Lai Lymphocytes/100 WBC (Bld) 6.2 % Critically low 20.5-60.0 [facility] Comment on above: Performed By: #### P OCGLUC #### [facility] [address] [address] [address] Saskia Lai MANUAL DIFF REQ NO Normal [facility] Comment on above: Performed By: #### P OCGLUC #### [facility] [address] [place] [address] Dr. Saskia Lai MCH (RBC) [Entitic mass] 29.7 pg Normal 25.9-34.0 [facility] Comment on above: Performed By: #### P OCGLUC #### [facility] [address] [address] [address] Saskia Lai MCHC (RBC) [Mass/Vol] 33.7 g/dL Normal 29.9-35.2 [facility] Comment on above: Performed By: #### P OCGLUC #### [facility] [address] [address] [address] Saskia Lai MCV (RBC) [Entitic vol] 88.0 fL Normal 80.0-94.0 [facility] Comment on above: Performed By: #### P OCGLUC #### [facility] [address] [address] [address] Saskia Lai MONO # 1.0 103/ul Critically high 0.3-0.8 [facility] Comment on above: Performed By: #### P OCGLUC #### [facility] [address] [address] [address] Saskia Lai Monocytes/100 WBC (Bld) 6.5 % Normal 1.7-12.0 [facility] Comment on above: Performed By: #### P OCGLUC #### [facility] [address] [address] [address] Saskia Lai NEUT # 12.9 103/ul Critically high 1.4-6.5 [facility] Comment on above: Performed By: #### P OCGLUC #### [facility] [address] [address] [address] Saskia Lai Neutrophils/100 WBC (Bld) 86.9 % Critically high 43.0-75.0 [facility] Comment on above: Performed By: #### P OCGLUC #### [facility] [address] [address] [address] Saskia Lai Platelet mean volume (Bld) [Entitic vol] 10.3 fL Normal 9.5-13.5 [facility] Comment on above: Performed By: #### P OCGLUC #### [facility] [address] [place] [address] Dr. Saskia Lai PLT 208 103/ul Normal 150-450 [facility] Comment on above: Performed By: #### P OCGLUC #### [facility] [address] [address] [address] Saskia Lai RBC 3.91 106/ul Critically low 4.70-6.10 [facility] Comment on above: Performed By: #### P OCGLUC #### [facility] [address] [address] [address] Saskia Lai WBC 14.9 103/ul Critically high 4.0-11.0 [facility] Comment on above: Performed By: #### P OCGLUC #### [facility] [address] [place] [address] Dr. Saskia Lai PROF CHEM 8 (BAS METB)on Anion gap [Moles/Vol] 10.7 mmol/L Normal [facility] Comment on above: Performed By: #### B MP #### [facility] [address] [place] [address] Dr. Saskia Lai Calcium [Mass/Vol] 8.9 mg/dL Normal 8.5-10.1 [facility] Comment on above: Performed By: #### B MP #### [facility] [address] [address] [address] Saskia Lai Chloride [Moles/Vol] 101 mmol/L Normal 98-107 [facility] Comment on above: Performed By: #### B MP #### [facility] [address] [address] [address] Saskia Lai CO2 [Moles/Vol] 27.9 mmol/L Normal 21.0-32.0 [facility] Comment on above: Performed By: #### B MP #### [facility] [address] [address] [address] Saskia Lai Creatinine [Mass/Vol] 1.17 mg/dL Normal 0.70-1.30 [facility] Comment on above: Performed By: #### B MP #### [facility] [address] [place] [address] Dr. Saskia Lai EGFR-AF PORTUGUESE >60 Normal >=60 [facility] Comment on above: Performed By: #### B MP #### [facility] [address] [place] [address] Dr. Saskia Lai EGFR-NON AF PORTUGUESE >60 Normal >=60 [facility] Comment on above: Performed By: #### B MP #### [facility] [address] [place] [address] Dr. Saskia Lai Glucose [Mass/Vol] 121 mg/dL Critically high 74-106 [facility] Comment on above: Performed By: #### B MP #### [facility] [address] [place] [address] Dr. Saskia Lai Potassium [Moles/Vol] 4.5 mmol/L Normal 3.5-5.1 [facility] Comment on above: Performed By: #### B MP #### [facility] [address] [place] [address] Dr. Saskia Lai Sodium [Moles/Vol] 135 mmol/L Critically low 136-145 [facility] Comment on above: Performed By: #### B MP #### [facility] [address] [place] [address] Dr. Saskia Lai Urea nitrogen [Mass/Vol] 30.0 mg/dL Critically high 7.0-18.0 [facility] Comment on above: Performed By: #### B MP #### [facility] [address] [place] [address] Dr. Saskia Lai Urea nitrogen/Creatinine [Mass ratio] 25.6 mg/mg Normal [facility] Comment on above: Performed By: #### B MP #### [facility] [address] [place] [address] Dr. Saskia Lai PROTIMEon 01-07-2022 INR Coag (PPP) [Relative time] 1.21 {INR} Normal [facility] Comment on above: Performed By: #### P T #### [facility] [address] [place] [address] Dr. Saskia Lai INR GUIDELINES SEE BELOW Normal [facility] Comment on above: Result Comment: GABI RED INR: 2.0 - 3.0 CONDITIONS NOT LISTED BELOW 2.5 - 3.5 FOR PROSTHETIC HEART VALVE REPLACEMENT 2.5 - 3.5 RECURRENT THROMBOSIS Performed By: #### P T #### [facility] [address] [place] [address] Dr. Saskia Lai PT Coag (PPP) [Time] 12.9 s Critically high 9.0-11.6 [facility] Comment on above: Performed By: #### P T #### [facility] [address] [place] [address] Dr. Saskia Lai POINT OF CARE GLUCOSEon 12-09 Glucose [Mass/Vol] 114 mg/dL Critically high 74-106 [facility] Comment on above: Performed By: #### P OCGLUC #### [facility] [address] [place] [address] Dr. Saskia Lai Glucose [Mass/Vol] 104 mg/dL Normal 74-106 [facility] Comment on above: Performed By: #### P OCGLUC #### [facility] [address] [place] [address] Dr. Saskia Lai PROTIMEon 01-06-2022 INR Coag (PPP) [Relative time] 1.19 {INR} Normal [facility] Comment on above: Performed By: #### P T #### [facility] [address] [place] [address] Dr. Saskia Lai INR GUIDELINES SEE BELOW Normal [facility] Comment on above: Result Comment: GABI RED INR: 2.0 - 3.0 CONDITIONS NOT LISTED BELOW 2.5 - 3.5 FOR PROSTHETIC HEART VALVE REPLACEMENT 2.5 - 3.5 RECURRENT THROMBOSIS Performed By: #### P T #### [facility] [address] [address] [address] Saskia Lai PT Coag (PPP) [Time] 12.7 s Critically high 9.0-11.6 [facility] Comment on above: Performed By: #### P T #### [facility] [address] [place] [address] Dr. Saskia Lai Cov[facility]on 12-08 SARS-CoV-2 (COVID-19) RNA TOSHA+probe Ql (Unsp spec) Not detected Normal NOT DETECTED [facility] Comment on above: Result Comment: This test is not yet approved or cleared by the [place] FDA. When there are no FDA-approved or cleared tests available, and other criteria are met, FDA can make tests available under an emergency access mechanism called an Emergency Use Authorization (EUA). The EUA for this test is supported by the [place] of Health and Human Service's (HHS's) declaration that circumstances exist to justify the emergency use of in vitro diagnostics for the detection and/or diagnosis of the virus that causes COVID-19. This EUA will remain in effect (meaning this test can be used) for the duration of the COVID-19 declaration justifying emergency of IVDs, unless it is terminated or revoked by FDA (after which the test may no longer be used). When diagnostic testing is negative, the possibility of a false negative should be considered in the context of a patient's recent exposures and the presence of clinical signs and symptoms consistent with SARS-CoV-2. Performed By: #### C VDTBH #### [facility] [address] [place] [address] Dr. Saskia Lai CBC AUTO DIFFon 12-24-2021 BASO # 0.1 103/ul Normal 0.0-0.1 [facility] Comment on above: Performed By: #### C VDTBH #### [facility] [address] [place] [address] Dr. Saskia Lai Basophils/100 WBC (Bld) 1.2 % Normal 0.2-2.0 [facility] Comment on above: Performed By: #### C VDTBH #### [facility] [address] [place] [address] Dr. Saskia Lai EO # 0.2 103/ul Normal 0.0-0.7 [facility] Comment on above: Performed By: #### C VDTBH #### [facility] [address] [place] [address] Dr. Saskia Lai Eosinophils/100 WBC (Bld) 2.8 % Normal 0.9-7.0 [facility] Comment on above: Performed By: #### C VDTBH #### [facility] [address] [place] [address] Dr. Saskia Lai Erythrocyte distribution width (RBC) [Ratio] 14.4 % Normal 11.0-15.0 [facility] Comment on above: Performed By: #### C VDTBH #### [facility] [address] [place] [address] Dr. Saskia aLi Hematocrit (Bld) [Volume fraction] 40.5 % Critically low 42.0-54.0 [facility] Comment on above: Performed By: #### C VDTBH #### [facility] [address] [place] [address] Dr. Saskia Lai Hemoglobin (Bld) [Mass/Vol] 13.4 g/dL Critically low 14.0-18.0 [facility] Comment on above: Performed By: #### C VDTBH #### [facility] [address] [place] [address] Dr. Saskia Lai IG # 0.00 10e3/ul Normal 0.00-0.03 [facility] Comment on above: Performed By: #### C VDTBH #### [facility] [address] [address] [address] Saskia Lai IG % 0.0 % Normal 0.0-0.5 [facility] Comment on above: Performed By: #### C VDTBH #### [facility] [address] [address] [address] Saskia Lai LYMPH # 1.1 103/ul Critically low 1.2-3.8 [facility] Comment on above: Performed By: #### C VDTBH #### [facility] [address] [place] [address] Dr. Saskia Lai Lymphocytes/100 WBC (Bld) 19.5 % Critically low 20.5-60.0 [facility] Comment on above: Performed By: #### C VDTBH #### [facility] [address] [place] [address] Dr. Saskia Lai MANUAL DIFF REQ NO Normal [facility] Comment on above: Performed By: #### C VDTBH #### [facility] [address] [place] [address] Dr. Saskia Lai MCH (RBC) [Entitic mass] 29.6 pg Normal 25.9-34.0 [facility] Comment on above: Performed By: #### C VDTBH #### [facility] [address] [place] [address] Dr. Saskia Lai MCHC (RBC) [Mass/Vol] 33.1 g/dL Normal 29.9-35.2 [facility] Comment on above: Performed By: #### C VDTBH #### [facility] [address] [place] [address] Dr. aSskia Lai MCV (RBC) [Entitic vol] 89.4 fL Normal 80.0-94.0 [facility] Comment on above: Performed By: #### C VDTBH #### [facility] [address] [place] [address] Dr. Saskia Lai MONO # 0.4 103/ul Normal 0.3-0.8 [facility] Comment on above: Performed By: #### C VDTB #### [facility] [address] [place] [address] Dr. Saskia Lai Monocytes/100 WBC (Bld) 6.7 % Normal 1.7-12.0 [facility] Comment on above: Performed By: #### C VDTBH #### [facility] [address] [place] [address] Dr. Saskia Lai NEUT # 4.0 103/ul Normal 1.4-6.5 [facility] Comment on above: Performed By: #### C VDTBH #### [facility] [address] [place] [address] Dr. Saskia Lai Neutrophils/100 WBC (Bld) 69.8 % Normal 43.0-75.0 [facility] Comment on above: Performed By: #### C VDTBH #### [facility] [address] [place] [address] Dr. Saskia Lai Platelet mean volume (Bld) [Entitic vol] 9.9 fL Normal 9.5-13.5 [facility] Comment on above: Performed By: #### C VDTBH #### [facility] [address] [place] [address] Dr. Saskia Lai PLT 228 103/ul Normal 150-450 [facility] Comment on above: Performed By: #### C VDTBH #### [facility] [address] [place] [address] Dr. Saskia Lai RBC 4.53 106/ul Critically low 4.70-6.10 [facility] Comment on above: Performed By: #### C VDTBH #### [facility] [address] [place] [address] Dr. Saskia Lai WBC 5.7 103/ul Normal 4.0-11.0 [facility] Comment on above: Performed By: #### C VDTBH #### [facility] [address] [place] [address] Dr. Saskia Lai PROF CHEM 8 (BAS METB)on Anion gap [Moles/Vol] 11.0 mmol/L Normal [facility] Comment on above: Performed By: #### P OCGLUC #### [facility] [address] [address] [address] Saskia Lai Calcium [Mass/Vol] 9.3 mg/dL Normal 8.5-10.1 [facility] Comment on above: Performed By: #### P OCGLUC #### [facility] [address] [address] [address] Saskia Lai Chloride [Moles/Vol] 102 mmol/L Normal 98-107 [facility] Comment on above: Performed By: #### P OCGLUC #### [facility] [address] [address] [address] Saskia Lai CO2 [Moles/Vol] 29.5 mmol/L Normal 21.0-32.0 [facility] Comment on above: Performed By: #### P OCGLUC #### [facility] [address] [address] [address] Saskia Lai Creatinine [Mass/Vol] 0.93 mg/dL Normal 0.70-1.30 [facility] Comment on above: Performed By: #### P OCGLUC #### [facility] [address] [address] [address] Saskia Lai EGFR-AF PORTUGUESE >60 Normal >=60 [facility] Comment on above: Performed By: #### P OCGLUC #### [facility] [address] [address] [address] Saskia Lai EGFR-NON AF PORTUGUESE >60 Normal >=60 [facility] Comment on above: Performed By: #### P OCGLUC #### [facility] [address] [address] [address] Saskia Lai Glucose [Mass/Vol] 97 mg/dL Normal 74-106 [facility] Comment on above: Performed By: #### P OCGLUC #### [facility] [address] [address] [address] Saskia Lai Potassium [Moles/Vol] 4.5 mmol/L Normal 3.5-5.1 [facility] Comment on above: Performed By: #### P OCGLUC #### [facility] [address] [place] [address] Dr. Saskia Lai Sodium [Moles/Vol] 138 mmol/L Normal 136-145 [facility] Comment on above: Performed By: #### P OCGLUC #### [facility] [address] [place] [address] Dr. Saskia Lai Urea nitrogen [Mass/Vol] 15.0 mg/dL Normal 7.0-18.0 [facility] Comment on above: Performed By: #### P OCGLUC #### [facility] [address] [place] [address] Dr. Saskia Lai Urea nitrogen/Creatinine [Mass ratio] 16.1 mg/mg Normal [facility] Comment on above: Performed By: #### P OCGLUC #### [facility] [address] [place] [address] Dr. Saskia Lai PROTIMEon 12-24-2021 INR Coag (PPP) [Relative time] 2.00 {INR} Normal [facility] Comment on above: Performed By: #### P T, PTT #### [facility] [address] [place] [address] Dr. Saskia Lai INR GUIDELINES SEE BELOW Normal [facility] Comment on above: Result Comment: GABI RED INR: 2.0 - 3.0 CONDITIONS NOT LISTED BELOW 2.5 - 3.5 FOR PROSTHETIC HEART VALVE REPLACEMENT 2.5 - 3.5 RECURRENT THROMBOSIS Performed By: #### P T, PTT #### [facility] [address] [place] [address] Dr. Saskia Lai PT Coag (PPP) [Time] 20.6 s Critically high 9.0-11.6 [facility] Comment on above: Performed By: #### P T, PTT #### [facility] [address] [place] [address] Dr. Saskia Lai PTTon 12-24-2021 aPTT Coag (Bld) [Time] 33.5 s Normal 22.3-36.2 [facility] Comment on above: Performed By: #### P T, PTT #### [facility] [address] [place] [address] CHEST W CONon 10-23-2021 CT CHEST W CON EXAMINATION: CT CHES T W CON HISTORY: Lung field abnormal COMPARISON: No relevant comparison available. TECHNIQUE: Multi-planar CT images were created with IV contrast. Axial, Coronal, and Sagittal images. Dose reduction techniques were achieved by using automated exposure control and/or adjustment of mA and/or kV according to patient size and/or use of iterative reconstruction technique. FINDINGS: LUNGS: 6 mm round nodule within posterior lateral aspect of lingula. PLEURA: No mass, effusion, or pneumothorax. VASCULATURE: No abnormality. ARIC: No mass or adenopathy. MEDIASTINUM: No mass or adenopathy. CARDIAC: Pericardial effusion, 8 mm in thickness. AORTA: No aneurysm or dissection. CHEST WALL: No mass or axillary adenopathy. BONES: No bone lesion or fracture. Left shoulder replacement. Old, healed posterior left rib fractures. LIMITED ABDOMEN: No suspicious findings Limited images of the upper abdomen. OTHER: Negative. IMPRESSION: 1. Nonspecific 6 mm nodule within lingula, but no overtly suspicious characteristics. Comparison to prior studies if available at another institution is recommended, otherwise follow-up imaging in 6 months to document stability. 2. Pericardial effusion 8 mm in thickness. Electronically authenticated by: GERARDO AUGUSTIN Date: 2021-10-23 17:42 Normal [facility] PROF CHEM 8 (BAS METB)on Anion gap [Moles/Vol] 14.4 mmol/L Normal [facility] Comment on above: Performed By: #### P OCGLUC #### [facility] [address] [place] [address] Dr. Saskia Lai Calcium [Mass/Vol] 9.1 mg/dL Normal 8.5-10.1 [facility] Comment on above: Performed By: #### P OCGLUC #### [facility] [address] [address] [address] Saskia Lai Chloride [Moles/Vol] 102 mmol/L Normal 98-107 [facility] Comment on above: Performed By: #### P OCGLUC #### [facility] [address] [address] [address] Saskia Lai CO2 [Moles/Vol] 25.1 mmol/L Normal 21.0-32.0 [facility] Comment on above: Performed By: #### P OCGLUC #### [facility] [address] [address] [address] Saskia Lai Creatinine [Mass/Vol] 1.13 mg/dL Normal 0.70-1.30 [facility] Comment on above: Performed By: #### P OCGLUC #### [facility] [address] [address] [address] Saskia Lai EGFR-AF PORTUGUESE >60 Normal >=60 [facility] Comment on above: Performed By: #### P OCGLUC #### [facility] [address] [address] [address] Saskia Lai EGFR-NON AF PORTUGUESE >60 Normal >=60 [facility] Comment on above: Performed By: #### P OCGLUC #### [facility] [address] [address] [address] Saskia Lai Glucose [Mass/Vol] 82 mg/dL Normal 74-106 [facility] Comment on above: Performed By: #### P OCGLUC #### [facility] [address] [address] [address] Saskia Lai Potassium [Moles/Vol] 4.5 mmol/L Normal 3.5-5.1 [facility] Comment on above: Performed By: #### P OCGLUC #### [facility] [address] [address] [address] Saskia Lai Sodium [Moles/Vol] 137 mmol/L Normal 136-145 [facility] Comment on above: Performed By: #### P OCGLUC #### [facility] [address] [address] [address] Saskia Lai Urea nitrogen [Mass/Vol] 19.0 mg/dL Critically high 7.0-18.0 [facility] Comment on above: Performed By: #### P OCGLUC #### [facility] [address] [address] [address] Saskia Lai Urea nitrogen/Creatinine [Mass ratio] 16.8 mg/mg Normal [facility] Comment on above: Performed By: #### P OCGLUC #### [facility] [address] [place] [address] Dr. Saskia Hurley 08-12-2021 CARL Office Visit (LOORRM ) -- REMI ZARCO ([id number]) 1945 M Date Time Provider Department 08/12/21 2:45 PM DARREL ALMENDAREZ During your visit today, we recorded the following information about you: Darrel Almendarez DPM 08/12/2021 4:59 PM Signed Patient Visit for Remi Zarco 1945 76 year old male SUBJECTIVE: Chief Complaint: Patient presents with: Left Foot - Established Patient, Follow Up, Pain Left Ankle - Established Patient, Follow Up, Pain Pain Scales: Verbal (Numeric Rating or Visual Analog Scale) Pain Level: 2 Pain Location: (Left foot and ankle) Description: Throbbing, Sharp Duration Units: Years Frequency: Intermittent Intervention/Comfort measure: Medication (Brace) Comments: He is here for a follow up of pain in his left foot and ankle and to discuss possible surgery. Additional HPI: difficulty walking LEFT hind foot and ankle With custom ankle foot orthosis (AFO) still has 8/10 pain with difficulty walking Worse with activity Uses cane PCP: Gil Gee MD PAST MEDICAL HISTORY Diagnosis Date - Acquired hypothyroidism - HTN (hypertension) - Lumbar back pain - Persistent atrial fibrillation (HCC) Current Outpatient Medications Medication Sig - warfarin (COUMADIN) 4 mg tablet Take 2-4 mg by mouth. - magnesium hydroxide (MOM) 400 mg/5 mL suspension Take 30 mL by mouth once daily as needed for Constipation. - meloxicam (MOBIC) 15 mg tablet Take 15 mg by mouth once daily. Been taking one every other day - eplerenone (INSPRA) 25 mg tablet Take 25 mg by mouth once daily. - levothyroxine (SYNTHROID) 100 mcg tablet Take 100 mcg by mouth daily before breakfast. No current facility-administered medications for this visit. ALLERGIES Allergen Reactions - Morphine Other: See Comments Makes patient skin hurt PAST SURGICAL HISTORY Procedure Laterality Date - PAST SURGICAL HISTORY OF bilateral shoulders - TOTAL KNEE REPLACEMENT Knee replacement, total,bilateral FAMILY HISTORY Problem Relation Age of Onset - Heart Attack Father Social History Tobacco Use - Smoking status: Former Smoker Packs/day: 1.00 Years: 10.00 Pack years: 10.00 Types: Cigarettes Quit date: 1988 Years since quittin.4 - Smokeless tobacco: Never Used Substance Use Topics - Alcohol use: Yes Comment: rare - Drug use: No Tobacco Use: 1 packs/day, for 10 years. Quit 03/09/1988. Types: Cigarettes REVIEW OF SYSTEMS: The remainder of the ROS was reviewed with the patient and is negative except as noted. GENERAL: denies fever or chills CARDIOVASCULAR: Denies current chest pain or SOB (shortness of breath) OBJECTIVE: General: Pleasant in no acute distress Lower extremity exam: Vascular exam: Normal vascular exam, palpable pluses with brisk capillary fill Neurological exam: Normal neurological exam, gross epicritic sensation intact Dermatological exam: Normal exam without rashes or lesions of skin. 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 Treatment options discussed at length MRI ordered today: Based on History and physical exam MRI ordered. MRI will directly affect the treatment plan and is medically necessary to further evaluate the current diagnosis. Pre operative evaluation hind foot , midfoot , ankle All questions were answered. Remi Zarco appeared to be well informed. Greater than 50% of the visit was spent face to face counseling and/or coordinating care for the patient. Darrel Almendarez DPM Referring Provider: SELF [[id number]] Allergies As of Date: 08/12/2021 Noted Allergy Reaction MORPHINE 01/04/2018 14 - Other: See Comments Comments: Makes patient skin hurt Date Reviewed: 08/12/2021 Reviewed by: Darrel Almendarez DPM - Fully Assessed Reason for Visit: Established Patient [175] Follow Up [171] Pain [78] Established Patient [175] Follow Up [171] Pain [78] Primary Visit Diagnosis:DJD (degenerative joint disease), ankle and foot, left [M19.072] Other Visit Diagnoses:Osteonecrosis (HCC) [M87.9] (more content not included)... Normal [facility] CNPNon 08-01-2021 [facility] ([id number]) 1945 M Date Time Provider Department 08/01/21 DARREL ALMENDAREZ During your visit today, we recorded the following information about you: Abilio Diaz 08/01/2021 8:47 AM Signed Pt called, wanted to know if Dr Almendarez or nurse could reach out to further advise of treatment plan. Pt states he was to hear back shortly after visit on 07/10. Abilio Monge, OSCAR 08/06/2021 1:59 PM Addendum Called and spoke with patient. He wants to know if surgery is his next step based on his xray images brought to his last visit. Scheduled for an in person follow up Allergies As of Date: 08/01/2021 Noted Allergy Reaction MORPHINE 01/04/2018 14 - Other: See Comments Comments: Makes patient skin hurt Date Reviewed: 07/10/2021 Reviewed by: Darrel lAmendarez DPM - Fully Assessed Reason for Visit: Patient Question [7017] Patient Update [1234] Prescriptions as of 08/06/2021 - warfarin (COUMADIN) 4 mg tablet Take 2-4 mg by mouth. - magnesium hydroxide (MOM) 400 mg/5 mL suspension Take 30 mL by mouth once daily as needed for Constipation. - meloxicam (MOBIC) 15 mg tablet Take 15 mg by mouth once daily. Been taking one every other day - eplerenone (INSPRA) 25 mg tablet Take 25 mg by mouth once daily. - levothyroxine (SYNTHROID) 100 mcg tablet Take 100 mcg by mouth daily before breakfast. Problem List As Of Date 08/01/2021 Noted Resolved Complete tear of left rotator cuff [M75.122] 05/21/2015 Complete tear of right rotator cuff [M75.121] 05/21/2015 Primary osteoarthritis of left shoulder [M19.01*05/21/2015 Rotator cuff arthropathy of both shoulders [M12*01/04/2018 Rotator cuff tear arthropathy, right [M75.101, *01/27/2018 Rotator cuff tear arthropathy, left [M75.102, M*01/27/2018 Status post replacement of left shoulder joint *05/13/2018 Difficulty walking [R26.2] 07/10/2021 PTTD (posterior tibial tendon dysfunction) [M76*07/10/2021 Acquired valgus deformity of left ankle [M21.07*07/10/2021 DJD (degenerative joint disease), ankle and billy*07/10/2021 Encounter Status:Closed by ABILIO BULLARD on 08/01/21 [facility] CNOVon 07-10-2021 CNMARIUM Office Visit (AMANDA ) -- REMI ZARCO ([id number]) 1945 M Date Time Provider Department 07/10/21 1:00 PM DARREL ALMENDAREZ During your visit today, we recorded the following information about you: Darrel Almendarez DPM 07/10/2021 4:45 PM Signed Patient Visit for Remi Zarco 1945 76 year old male SUBJECTIVE: Chief Complaint: Patient presents with: Left Ankle - New, Pain Left Foot - Pain, New Pain Scales: Verbal (Numeric Rating or Visual Analog Scale) Pain Level: 0 Pain Location: Ankle-Left Description: Throbbing Duration Units: Years Frequency: Intermittent Intervention/Comfort measure: Medication (Steriod injections, ankle brace) Comments: He is here for pain in his left ankle. No known injury. Pain increases with standing and walking. Previously seen by Dr. Saucedo. Additional HPI: LEFT foot and ankle pain and deformity Some difficulty walking Limited to house ambulation Additional Modifying factor: What makes better / worse: He has been using custom ankle foot orthosis (AFO) ,however, it causes irritation AFO (Ankle Foot Orthosis) has been adjusted PCP: Gil Gee MD PAST MEDICAL HISTORY Diagnosis Date - Acquired hypothyroidism - HTN (hypertension) - Lumbar back pain - Persistent atrial fibrillation (HCC) Current Outpatient Medications Medication Sig - warfarin (COUMADIN) 4 mg tablet Take 2-4 mg by mouth. - magnesium hydroxide (MOM) 400 mg/5 mL suspension Take 30 mL by mouth once daily as needed for Constipation. - meloxicam (MOBIC) 15 mg tablet Take 15 mg by mouth once daily. Been taking one every other day - eplerenone (INSPRA) 25 mg tablet Take 25 mg by mouth once daily. - levothyroxine (SYNTHROID) 100 mcg tablet Take 100 mcg by mouth daily before breakfast. No current facility-administered medications for this visit. ALLERGIES Allergen Reactions - Morphine Other: See Comments Makes patient skin hurt PAST SURGICAL HISTORY Procedure Laterality Date - PAST SURGICAL HISTORY OF bilateral shoulders - TOTAL KNEE REPLACEMENT Knee replacement, total,bilateral FAMILY HISTORY Problem Relation Age of Onset - Heart Attack Father Social History Tobacco Use - Smoking status: Former Smoker Packs/day: 1.00 Years: 10.00 Pack years: 10.00 Types: Cigarettes Quit date: 1988 Years since quittin.3 - Smokeless tobacco: Never Used Substance Use Topics - Alcohol use: Yes Comment: rare - Drug use: No Tobacco Use: 1 packs/day, for 10 years. Quit 03/09/1988. Types: Cigarettes REVIEW OF SYSTEMS: The remainder of the ROS was reviewed with the patient and is negative except as noted. GENERAL: denies fever or chills CARDIOVASCULAR: Denies current chest pain or SOB (shortness of breath) OBJECTIVE: General: Pleasant in no acute distress Lower extremity exam: Vascular exam: Normal vascular exam, palpable pluses with brisk capillary fill Neurological exam: Normal neurological exam, gross epicritic sensation intact Dermatological exam: Normal exam without rashes or lesions of skin. No evidence of evidence of petechiae, purpura, telangiectasia Musculoskeletal exam: Eversion hind foot LEFT Depressed arch height with weight bearing LEFT Prominence of bone tarsometatarsal joint with instability Unable to single limb heel rise on affected side LEFT Posterior tibial tendon dysfunction Tenderness to palpation LEFT ANKLE Valgus deformity LEFT ANKLE and hind foot Deviated angular deformity toes Hallux malleus - reducible Other Gross overall Manual muscle strength evaluation relatively intact Other Gross range of motion appears to be intact to ankle and foot LABS: Most recent labs reviewed LABORATORY STUDIES: Recent Labs 04/06/18 0945 HB 10.3* WBC 8.55 PLT 226 X-ray severe degenerative joint disease midfoot , valgus deformity with degenerative joint disease ankle Deviated angular deformity toes ASSESSMENT: 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 Treatment options discussed at length Warned patient of risks of Total Ankle Joint Replacement I discussed with the patient consider different ankle bracing Consider diagnostic injections to determine location symptoms / ankle versus STJ (Talo-Calcaneal: Sub Talar Joint) , versus mid tarsal joint etc Consider alternative ankle bracing such as A.S.O. (Ankle Stabilizing Orthosis) -Elina- which may support hind foot All questions were answered. Remi Zarco appeared to be well informed. Greater than 50% of the visit was spent face to face counseling and/or coordinating care for the patient. Darrel Almendarez DPM Referring Pro (more content not included)... Normal [facility] XR ANKLE 3V AP/LAT/OBL LTon 07-10-2021 XR ANKLE 3V AP/LAT/OBL LT * * *Final Report* * * DATE OF EXAM: Jul 10 2021 12:47PM [id number] - XR ANKLE 3V AP/LAT/OBL LT / PROCEDURE REASON: Left ankle pain, unspecified chronicity * * * * Physician Interpretation * * * * EXAMINATION: XR ANKLE 3V AP/LAT/OBL LT Clinical history: Left ankle pain, unspecified chronicity RESULT: There is medial tilt to advanced tibiotalar narrowing with sclerosis. There is lateral soft tissue swelling. 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: [place] Transcribe Date/Time: Jul 10 2021 1:13P Dictated by : MIRNA WRIGHT MD This examination was interpreted and the report reviewed and electronically signed by: MIRNA WRIGHT MD on Jul 10 2021 1:14PM EST [id number] Normal [facility] XR ANKLE GENERAL 3V AP/LAT/O BL LEFTon 07-10-2021 [facility] XR FOOT 3V AP/LAT/OBL LTon 0 07-10-2021 XR FOOT 3V AP/LAT/OBL LT * * *Final Report* * * DATE OF EXAM: Jul 10 2021 1:07PM [id number] - XR FOOT 3V AP/LAT/OBL LT / PROCEDURE REASON: DJD (degenerative joint disease), ankle and foot, left * * * * Physician Interpretation * * * * EXAMINATION: XR FOOT 3V AP/LAT/OBL LT Clinical history: DJD (degenerative joint disease), ankle and foot, left RESULT: Hammertoe deformities are seen. There is advanced flattening of the arch. Splaying of the second and third digits are seen. There is advanced narrowing at the tarsometatarsal articulations with moderate osseous hypertrophy. Tibiotalar narrowing is observed. 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 Transcribe Date/Time: Jul 12 2021 11:11A Dictated by : MIRNA WRIGHT MD This examination was interpreted and the report reviewed and electronically signed by: MIRNA WRIGHT MD on Jul 12 2021 11:12AM EST [id number] Normal [facility] CNOVon 06-14-2021 CNOV Office Visit (LOORRM ) -- CAROLEEREMI Fairchild ([id number]) 1945 M Date Time Provider Department 06/14/21 1:30 PM MANUEL SAUCEDO During your visit today, we recorded the following information about you: Manuel Saucedo DPM 06/14/2021 1:59 PM Signed [facility] Department of Orthopedics [facility] Orthopedic Surgery Name: Remi Zarco Date of Service: June 14, 2021 CC/HPI: This 76 year old very pleasant male patient presents to the clinic today essentially for an opinion guarded his left ankle. He said problems for years and wore an AFO for approximately 5 but the last cortisone injection given to him really did not help along with the brace. He said he can feel ankle crunching inside. He presents today sent for another opinion regarding his left ankle fusion versus ankle replacement. PAST MEDICAL HISTORY Diagnosis Date - Acquired hypothyroidism - HTN (hypertension) - Lumbar back pain - Persistent atrial fibrillation (HCC) Current Outpatient Medications Medication Sig - warfarin (COUMADIN) 4 mg tablet Take 2-4 mg by mouth. - magnesium hydroxide (MOM) 400 mg/5 mL suspension Take 30 mL by mouth once daily as needed for Constipation. - meloxicam (MOBIC) 15 mg tablet Take 15 mg by mouth once daily. Been taking one every other day - eplerenone (INSPRA) 25 mg tablet Take 25 mg by mouth once daily. - levothyroxine (SYNTHROID) 100 mcg tablet Take 100 mcg by mouth daily before breakfast. No current facility-administered medications for this visit. ALLERGIES Allergen Reactions - Morphine Other: See Comments Makes patient skin hurt PAST SURGICAL HISTORY Procedure Laterality Date - PAST SURGICAL HISTORY OF bilateral shoulders - TOTAL KNEE REPLACEMENT Knee replacement, total,bilateral FAMILY HISTORY Problem Relation Age of Onset - Heart Attack Father Social History Tobacco Use - Smoking status: Former Smoker Packs/day: 1.00 Years: 10.00 Pack years: 10.00 Types: Cigarettes Quit date: 1988 Years since quittin.2 - Smokeless tobacco: Never Used Substance Use Topics - Alcohol use: Yes Comment: rare - Drug use: No Physical Exam: Patient is approximately 6 foot tall and 255 pounds. He is seen today with a short articulated AFO on his left lower extremity. Upon removal The patient is alert and oriented x 3 in no apparent acute distress. Vascular: Pedal pulses are palpable DP and PT left. CFT is less than 3 seconds digits 1-5 left. Skin temperature is warm to cool from anterior knees to toes left. Some varicosities left. Normal pedal hair growth left. Neuro: Light touch is intact to all quadrants of foot and ankle with no apparent sensory deficits left. Derm: Unremarkable as related chief complaint left Ortho: Muscle strength is +5/5 for all pedal groups left. Subtalar joint, 1st MPJ and lesser MPJ ROM's are full and without pain or crepitus left. His ankle joint some valgus tilt with some crepitance. He has a substantial high arch/cavus foot structure with marked digital contracture digits 1 through 5 left. 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 Discussed results of clinical and radiographic examination with the patient in detail along with treatment options He was interested in the same surgeon who did Dr. Orantes's ankle since he was about to fix heis shoulder before he left for [place]. Discussed Dr. Torres but he does not want to drive to main campus. Suggested he see Dr. Almendarez to discuss surgical options. Explained to patient that considering his advanced age and current body weight that an ankle replacement is not a very good option in my opinion. I suggested he see Dr. Almendarez to discuss other options outside of fusion if possible since he concerned that a fusion of his left ankle could affect his left lower extremity since his right knee has significant issues and feels his left leg is only is only good one he has. Appointment scheduling completed with Dr. Almendarez for an opinion. I discussed the significance of this problem and decision planning for surgical invention Manuel Saucedo DPM Referring Provider: SELF [200] Allergies As of Date: 06/14/2021 Noted Allergy Reaction MORPHINE 01/04/2018 14 - Other: See Comments Comments: Makes patient skin hurt Date Reviewed: 10/21/2018 Reviewed by: Jena Edwards Ma - Fully Assessed Reason for Visit: Pain [78] Primary Visit Diagnosis:Acquired valgus deformity of left ankle [M21.072] Other Visit Diagnoses:Ankle instabilit (more content not included)... Normal [facility] Vital Signs Date Time Vital Sign Value Performing Clinician Facility 02-24-2023 15:43-0500 Diastolic blood pressure 81 mm[Hg] MD Gil Gee Work Phone: [facility] 02-24-2023 15:43-0500 Heart rate 59 /min MD Gil Gee Work Phone: [facility] 02-24-2023 15:43-0500 Respiratory rate 16 /min MD Gil Gee Work Phone: [facility] 02-24-2023 15:43-0500 SaO2% (BldA) [Mass fraction] 95 % MD Gil Gee Work Phone: [facility] 02-24-2023 15:43-0500 Systolic blood pressure 148 mm[Hg] MD Gil Gee Work Phone: [facility] 02-24-2023 14:07-0500 Body temperature 97.3 [degF] MD Gil Gee Work Phone: [facility] 02-24-2023 14:07-0500 Inhaled oxygen flow rate 6 L/min MD Gil Gee Work Phone: [facility] 02-24-2023 12:55-0500 Body height 185.42 cm MD Gil Gee Work Phone: [facility] 02-24-2023 12:55-0500 Body mass index (BMI) [Ratio] 30.7 kg/m2 MD Gil Gee Work Phone: [facility] 02-24-2023 12:55-0500 Body weight 105.5 kg MD iGl Gee Work Phone: [facility] 11-09-2022 12:05-0400 Body height 182.88 cm Yolanda Somers Other [email or web address] Other 11-09-2022 12:05-0400 Body mass index (BMI) [Ratio] 31.08 kg/m2 Yolandaaleksey Somers Other [email or web address] Other 11-09-2022 12:05-0400 Body temperature 98.6 [degF] Yolanda Somers Other [email or web address] Other 11-09-2022 12:05-0400 Body weight 103.97 kg Yolanda Somers Other [email or web address] Other 11-09-2022 12:05-0400 Diastolic blood pressure 75 mm[Hg] Yolanda Somers Other [email or web address] Other 11-09-2022 12:05-0400 Respiratory rate 18 /min Yolanda Somers Other [email or web address] Other 11-09-2022 12:05-0400 SaO2% (BldA) [Mass fraction] 97 % Yolanda Somers Other [email or web address] Other 11-09-2022 12:05-0400 Systolic blood pressure 161 mm[Hg] Yolanda Piedramond Other [email or web address] Other Encounters Encounter Date Encounter Type Care Provider Facility Start: 03-24-2023 End: 03-24-2023 ambulatory PACO MULTANI Not Available Start: 03-11-2023 Telephone encounter Jobst Serv ice Work Phone: [facility] Start: 03-10-2023 Telephone encounter Davion duke RN [facility] Comment on above: Cardiac Clearance Start: 03-04-2023 End: 03-04-2023 ambulatory WILLIE ROSS Not Available Start: 02-24-2023 End: 02-24-2023 ambulatory Willie Ross Facility:[facility] Start: 02-24-2023 End: 02-24-2023 Admission to same day surgery center MD Gil Gee Work Phone: [facility] Start: 02-24-2023 End: 02-24-2023 ambulatory MD Gil Gee Work Phone: [facility] Work Phone: Start: 02-10-2023 End: 02-10-2023 ambulatory Willie Ross Facility:[facility] Start: 02-10-2023 End: 02-10-2023 ambulatory MD Gil Gee Work Phone: [facility] Work Phone: Start: 02-10-2023 End: 02-10-2023 Patient encounter procedure MD Gil Gee Work Phone: [facility] Work Phone: Start: 02-04-2023 End: 02-04-2023 ambulatory WILLIE ROSS Not Available Start: 11-09-2022 End: 11-09-2022 ambulatory Yolanda Somers Other [place] [employer] Other Start: 11-09-2022 Office outpatient ne w 10 minutes Yolanda Somers [facility] Start: 07-23-[address] GIL GEE Facil ity:[facility] Start: 06-11-2022 End: 06-12-[address] YOU NEWELL Facility:[facility] Start: 06-04-2022 End: 06-04-[address] GIL GEE Facility:[facility] Start: 04-08-2022 End: 04-09-[address] GERARDO AUGUSTIN Facility:[facility] Start: 03-04-2022 End: 03-05-[address] YOU NEWELL Facility:[facility] Start: 02-18-2022 End: 02-19-[address] GERARDO AUGUSTIN Facility:[facility] Start: 02-04-2022 End: 02-05-[address] GERARDO AUGUSTIN Facility:[facility] Start: 01-06-2022 End: 01-08-2022 Evaluation and management of inpatient DR YOU NEWELL Facility:[facility] Start: 01-05-2022 Encounter for preprocedural laboratory examination [facility] Start: 01-02-2022 End: 01-03-2022 ambulatory [facility] Facility[facility] Start: 01-02-2022 End: 01-03-2022 Encounter for preprocedural laboratory examination [facility] Facility:[facility] Start: 12-27-2021 Encounter for preprocedural cardiovascular examination [facility] Start: 12-27-2021 Encounter for preprocedural laboratory examination [facility] Start: 12-24-2021 End: 12-25-2021 [facility] Start: 12-24-2021 End: 12-25-2021 Encounter for preprocedural cardiovascular examination [facility] Start: 10-23-2021 End: 10-24-[address] GERARDO AUGUSTIN Facility:[facility] Start: 08-12-2021 End: 08-12-2021 Patient encounter procedure Darrel Brai DPM Work Phone: Orthopaedics Comment on above: DJD (degenerative adelaida int disease), ankle and foot, left (Primary Dx); Osteonecrosis (HCC); PTTD (posterior tibial tendon dysfunction); Acquired valgus deformity of left ankle; Difficulty walking; Ankle instability, left; Chronic pain of left ankle Start: 07-10-2021 ambulatory Wanda M Ashanti ock RT(R) Radiology Comment on above: Radio Gen RMP Start: 07-10-2021 End: 07-10-2021 Patient encounter procedure Wanda Ratna Oksana RT(R) [facility] Comment on above: DJD (degenerative adelaida int disease), ankle and foot, left (Primary Dx); Acquired valgus deformity of left ankle; PTTD (posterior tibial tendon dysfunction); Difficulty walking Start: 07-10-2021 End: 07-10-2021 Subsequent hospital visit by physician [facility] Work Phone: Radiology Comment on above: Left ankle pain, uns pecified chronicity [M25.572] Start: 06-14-2021 End: 06-14-2021 Patient encounter procedure Manuel VARELAM Work Phone: Orthopaedics Comment on above: 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 (Primary Dx); Ankle instability, left; Chronic pain of left ankle Start: 07-13-2017 Patient encounter status Davion gonzales RN [facility] [employer] Procedures Date Procedure Procedure Detail Performing Clinician Start: 02-24-2023 Excision of lesion of cheek MD Gil Gee Work Phone: Start: 01-06-2022 Division of Left Lower Leg Tendon, Open Approach DR GERARDO AUGUSTIN Start: 01-06-2022 Division of Left Foot Tendon, Open Approach DR GERARDO AUGUSTIN Start: 01-06-2022 Excision of Left Tarsal, Open Approach DR GERARDO AUGUSTIN Start: 01-06-2022 Fusion of Left Tarsal Joint with Autologous Tissue Substitute, Open Approach DR GERARDO AUGUSTIN Start: 01-06-2022 Release Left Foot Bursa and Ligament, Open Approach DR GERARDO AUGUSTIN Start: 07-10-2021 End: 07-10-2021 Radex ankle complete minimum 3 views Darrel Almendarez DPM Work Phone: Start: 04-25-2021 Colonoscopy Davion Jackson Nora Mccarthy Start: 05-13-2018 H/O: artificial joint Status post replacement of left shoulder joint Manuel Saucedo DPM Work Phone: Plan of Treatment Date Care Activity Detail Author Start: 04-25-2026 Screening for malignant neoplasm of colon Colonoscopy [facility] Start: 12-20-2023 Adult BMI Screening Adult BMI Screen ing [facility] Start: 12-20-2023 Tobacco Screening Tobacco Screening [facility] Start: 04-03-2023 End: 04-03-2023 Follow-up encounter 04/03/2023 8:00 AM EST Follow Up Anticoagulation [facility] Medication Therapy Management [address] [place] [address] Darrel Rangel MD [facility] [address] [facility] [place] [address] 526- [facility] Medication Therapy Management Start: 02-24-2023 End: 02-24-2023 [facility] Start: 11-07-2021 Influenza vaccination INFLUENZA (Sea son Ended) [facility] Start: 04-06-2021 DIABETES SCREEN DIABETES SCREEN [facility] Start: 03-09-2021 ADVANCE DIRECTIVE DISCUSSION ADVANCE DIRECTIVE DISCUSSION [facility] Start: 2010 Fall Risk Screening Fall Risk Screen ing [facility] Start: 2010 PNEUMOCOCCAL: 65+ (1 - PCV) PNEUMOCOCCAL: 65+ (1 - PCV) [facility] Start: 2010 PNEUMOVAX AGE 65 AND OVER WITH 5YR LOOKBACK (#1) PNEUMOVAX AGE 65 AND OVER WITH 5YR LOOKBACK (#1) [facility] Start: 06-07-1995 SHINGRIX VACCINE (1 of 2) SHINGRIX VACCINE (1 of 2) [facility] Start: 1964 DTaP,Tdap and Td Vaccines (1 - Tdap) DTaP,Tdap and Td Vaccines (1 - Tdap) [facility] Start: 1964 Urine microalbumin profile DTAP,TDAP,TD (1 - Tdap) [facility] Start: 06-07-1963 Adult BMI Follow Up Plan Adult BMI Follow Up Plan [facility] Start: 06-07-1963 HEPATITIS C SCREENING HEPATITIS C SC KODY [facility] Start: 1957 Adult depression screening assessment DEPRESSION SCREENING [facility] Start: 1945 Medicare Annual Wellness Visit Medicare Annual Wellness Visit [facility] End: 09-11-2022 Mri any jt lower extrem w/o contrast matrl MRI ANKLE WO IVCON LT Radiology Routine Osteonecrosis (HCC) 1 Occurrences starting 08/12/2021 until 09/11/2022 [facility] Work Phone: Comment on above: 1 Occurrences starti ng 08/12/2021 until 09/11/2022 Patient referral [facility] Work Phone: XR FOOT GENERAL 3V AP/LAT/OBL LEFT XR FOOT GENERAL 3V AP/LAT/OBL LEFT Radiology Routine DJD (degenerative joint disease), ankle and foot, left 07/10/2021 1:07 PM EDT [facility] Work Phone: [facility] c Immunizations Immunization Date Immunization Notes Care Provider Amy tena 11-29-2021 COVID-19 (Pfizer) Bivalent Booster, Age 12Y+ MD Gil Gee Work Phone: [facility] 07-30-2021 COVID-19 (Pfizer) MD Gil osman Work Phone: [facility] 12-26-2020 COVID-19 (Pfizer) MD Gil osman Work Phone: [facility] 05-21-2020 COVID-19 (Pfizer) MD Gil osman Work Phone: [facility] 04-30-2020 COVID-19 (Pfizer) MD Gil osman Work Phone: [facility] Payers Date Payer Category Payer Self-pay [id number] 2019 Unknown MMO MMO MEDICARE SUPPLEMENT [id number] 2019-Present [phone] [address] [place] [address] Indemnity [id number] 2010 Unknown ANTHEM BLUE CARD TRADITIONAL OOS [id number] 2010-Present [phone] [address] [place] [address] Indemnity [id number] 2010 Unknown [id number]. [id number] 2004 Medicare MEDICARE MEDICAR E A AND B [id number] 2004-Present [phone] [address] [address] [place] [address] Medicare [id number] 2002 Medicare MEDICARE MEDICAR E PART A & B [id number] 2002-Present [phone] [address] [place] [address] [id number] 1959 Medicare [id number] 1959 Unknown [id number] 1959 Unknown [id number] 1945 Unknown [id number] 1945 Unknown [id number] 2.16.840.1.859455.3.579.2.593 1945 Unknown [id number] 2.16.840.1.437427.3.579.2.593 1945 Unknown [id number] 2.16.840.1.405510.3.579.2.593 1945 Unknown [id number] 2.16.840.1.968716.3.579.2.593 1945 Unknown [id number] 2.16.840.1.762787.3.579.2.593 1945 Unknown [id number] 2.16.840.1.247900.3.579.2.593 1945 Unknown [id number] 2.16.840.1.375305.3.579.2.593 1945 Unknown [id number] 2.16.840.1.402278.3.579.2.593 1945 Unknown [id number] 2.16.840.1.725537.3.579.2.593 1945 Unknown [id number] 2.16.840.1.628373.3.579.2.593 1945 Unknown [id number] 2.16.840.1.421331.3.579.2.1259 1945 Unknown [id number] 2.16.840.1.422399.3.579.2.1259 1945 Unknown [id number] 2.16.840.1.002794.3.579.2.1259 Unknown [id number] 2.16.840.1.196755.3.579.2.531 Unknown [id number] Social History Date Type Detail Facility Start: 05-21-2015 End: 05-02-2022 Tobacco smoking status NHIS Ex-smoker [facility] End: 03-09-1988 History of tobacco use Current smoker [facility] End: 03-09-1988 History of tobacco use Cigarette Smoker [facility] Start: 05-21-2015 End: 04-19-2020 Cigarettes smoked current (pack per day) - Reported 1 [facility] Start: 05-21-2015 End: 05-02-2022 Tobacco use and exposure Smokeless tobacco non-user [facility] Start: 03-26-2018 End: 12-19-2022 Alcohol intake Current drinker of alcohol (finding) [facility] Start: 03-26-2018 History SDOH Alcohol Comment rare [facility] Start: 1945 Sex Assigned At Not on file [facility] Start: 06-04-2021 End: 08-12-2021 Exposure to SARS-CoV-2 (event) Not sure [facility] Start: 04-19-2020 End: 12-19-2022 Sex Assigned At [facility] Start: 1945 Sex Assigned At Male F [facility] Adolescent depressio n screening assessment 0 [facility] Start: 01-05-2017 Alcohol Comment drinks occasionally [facility] Medical Equipment Procedure Code Equipment Code Equipment Origin al Text Equipment Identifier Dates Head Rsp 36mm Neutral Glenoid Retain Screw - [id number] Start: 04-02-2018 Insert Rsp Djo Surgical Standard Hxe+ Socket Sterile Humeral - [id number] Start: 04-02-2018 Stem Altivate Dj o Surgical 14 Standard 108mm Humeral Sterile Shoulder - [id number] Start: 04-02-2018 Baseplate Rsp P2 30mm Glenoid Sterile - [id number] Start: 04-02-2018 Screw Rsp 5mm 26 mm Bone Lock Glenoid Baseplate Shoulder - [id number] Start: 04-02-2018 Screw Rsp 5mm 30 mm Bone Lock Glenoid Baseplate Shoulder - [id number] Start: 04-02-2018 Screw Rsp 5mm 26 mm Bone Lock Glenoid Baseplate Shoulder - [id number] Start: 04-02-2018 Screw Rsp 5mm 18 mm Bone Lock Glenoid Baseplate Shoulder - [id number] Start: 04-02-2018 Goals Date Patient Goal Desired Activity /State Clinical Notes 06-14-2021 to 03-11-2023 Telephone Encounter - Lizzette Mcnulty - 03/11/2023 8:27 AM ESTTelephone Encounter - Sandra Merritt RPH - 03/11/2023 8:27 AM ESTTelephone Encounter - Lizzette Mcnulty - 03/11/2023 8:27 AM EST Note Date & Type Note Facility 03-11-2023 Miscellaneous Notes Formattin g of this note might be different from the original. Patient called requesting a refill of his warfarin 4 mg tablets for 90 days to [facility] mail order. Last saw his referring provider 12/19/22. Noted. Refill sent to [facility] as requested for warfarin 4 mg tabs. Last OV: 12/19/22 documented in this encounter [facility] 03-11-2023 Telephone encount er Note Patient called requesting a refill of his warfarin 4 mg tablets for 90 days to [facility] mail order. Last saw his referring provider 12/19/22. [facility] 03-11-2023 Telephone encount er Note Noted. Refill sent to [facility] as requested for warfarin 4 mg tabs. Last OV: 12/19/22 [facility] 03-10-2023 Miscellaneous Notes Formattin g of this note might be different from the original. ----- Message from Delicia Greer MD sent at 03/09/2023 4:58 PM EST ----- Okay to proceed with low risk ----- Message ----- From: Davion Jackson RN Sent: 02/09/2023 9:37 AM EST To: Delicia Greer MD [facility] ----- Message ----- From: Winifred Melissa RP Sent: 02/06/2023 4:00 PM EST To: [facility] Clinical Staff Clearance received 02/06/23 from [facility] via [facility] [employer] documented in this encounter [facility] 03-10-2023 Telephone encount er Note ----- Message from Delicia Greer MD sent at 03/09/2023 4:58 PM EST ----- Okay to proceed with low risk ----- Message ----- From: Davion Jackson RN Sent: 02/09/2023 9:37 AM EST To: Delicia Greer MD [facility] ----- Message ----- From: Winifred Melissa [facility] Sent: 02/06/2023 4:00 PM EST To: [facility] [address] Clinical Staff Clearance received 02/06/23 from [facility] via [facility] [employer] [facility] 11-09-2022 Evaluation note Encounter Date Diagnosis Assessment Notes Nov, Dehiscence of operative wound, initial encounter (ICD-10 - T81.31XA) Caring for a surgical wound material was printed Keep the wound clean and dry. Leave the urgent care dressing on until tomorrow. Tomorrow you may change the dressing. You may apply antibiotic ointment to the wound. Keep your appointment with Dr. Snow on Thursday as scheduled. Nov, Surgical wound present (ICD-10 - T14.8XXA) [email or web address] Other 04-05-2023 NotePROCEDURE: XR FOOT LT MIN 3 VIEWS COMPARISON: 04/08/2022 HISTORY: Pain in left foot FINDINGS: BONES:Subtalar and talonavicular joint fusion appears stable with fracture of a surgical staple across the talonavicular joint. Remote osteotomy and wedged spacer placement medial cuneiform. Moderate diffuse degenerative changes with joint space narrowing and marginal osteophyte formation. Posterior calcaneal osteotomy. SOFT TISSUES:Negative. No visible soft tissue swelling. EFFUSION:None visible. OTHER: Negative. IMPRESSION: Stable degenerative and postsurgical changes Electronically authenticated by: YOU NEWELL Date: 2022-06-11 14:10[facility] [id number] NotePROCEDURE: XR FOOT LT MIN 3 VIEWS, XR ANKLE LT MIN 3 V HISTORY: Pain in left foot COMPARISON: XR left foot 02/18/2022, XR left ankle 01/06/2022 FINDINGS: BONES:Posterior calcaneal osteotomy and realignment. Talocalcaneal fusion via lag screws. Talonavicular fusion via 2 lag screws and a bone staple with fracture of the length of the staple within the talus. Osteotomy and wedge placement within the medial cuneiform. Multifocal moderate degenerative changes of the midfoot and tarsometatarsal joints. Marked narrowing of the lateral aspect of the ankle joint. Prior bone harvesting from the distal tibial metaphysis.. SOFT TISSUES:Moderate soft tissue swelling surrounding the ankle and over dorsum of foot. EFFUSION:None visible. OTHER: Negative. IMPRESSION: 1. New fracture of proximal leg and bone staple (within the anterior talus). Otherwise stable hardware and bone alignment. 2. Marked degenerative changes of ankle joint. Electronically authenticated by: GERARDO AUGUSTIN Date: 2022-04-08 11:49[facility] [id number] NotePROCEDURE: XR FOOT LT MIN 3 VIEWS, XR ANKLE LT MIN 3 V HISTORY: Pain in left foot COMPARISON: XR left foot 02/18/2022, XR left ankle 01/06/2022 FINDINGS: BONES:Posterior calcaneal osteotomy and realignment. Talocalcaneal fusion via lag screws. Talonavicular fusion via 2 lag screws and a bone staple with fracture of the length of the staple within the talus. Osteotomy and wedge placement within the medial cuneiform. Multifocal moderate degenerative changes of the midfoot and tarsometatarsal joints. Marked narrowing of the lateral aspect of the ankle joint. Prior bone harvesting from the distal tibial metaphysis.. SOFT TISSUES:Moderate soft tissue swelling surrounding the ankle and over dorsum of foot. EFFUSION:None visible. OTHER: Negative. IMPRESSION: 1. New fracture of proximal leg and bone staple (within the anterior talus). Otherwise stable hardware and bone alignment. 2. Marked degenerative changes of ankle joint. Electronically authenticated by: GERARDO AUGUSTIN Date: 2022-04-08 11:49[facility]12-27-2022 NotePROCEDURE: XR FOOT LT MIN 3 VIEWS COMPARISON: 02/18/2022 HISTORY: Pain in left foot FINDINGS: BONES:Stable fusion with 5 cannulated screws in the midfoot and hindfoot, surgical staple across the navicular and talus and wedged spacer in the medial cuneiform. Stable moderate to severe degenerative changes with joint space narrowing and marginal osteophyte formation. Lucency in the distal tibia. Bone graft harvesting SOFT TISSUES:Diffuse soft tissue swelling EFFUSION:None visible. OTHER: Negative. IMPRESSION: Stable degenerative and postsurgical changes Electronically authenticated by: YOU NEWELL Date: 2022-03-04 16:58[facility] [id number] NotePROCEDURE: XR FOOT LT MIN 3 VIEWS HISTORY: Pain in left foot COMPARISON: XR foot left 02/04/2022 FINDINGS: BONES:Mechanical fusion of the hindfoot and talonavicular joint without evidence of hardware fracture or loosening. Osteotomy and wedge placement within the medial cuneiform. Moderate degenerative changes of the tarsal-metatarsal joints. No bone fracture or dislocation. SOFT TISSUES:No visible soft tissue swelling. EFFUSION:None visible. OTHER: Negative. IMPRESSION: 1. Stable surgical changes without evidence of hardware failure or change in alignment. 2. Skin debbie have been removed. Electronically authenticated by: GERARDO AUGUSTIN Date: 2022-02-19 09:16[facility]11-30-2022 NotePROCEDURE: XR FOOT LT MIN 3 VIEWS HISTORY: Pain in left foot COMPARISON: XR foot left 01/06/2022 FINDINGS: BONES:Mechanical fusion of the talocalcaneal and talonavicular joints without evidence of hardware failure or change in alignment. Posterior calcaneal osteotomy and repair. Osteotomy and wedge placement within the medial cuneiform. Degenerative changes of the tarsal-metatarsal joints. SOFT TISSUES:Soft tissue swelling surrounding the foot and ankle. Skin debbie dorsal and lateral to the foot and ankle. Interval removal of cast material. EFFUSION:None visible. OTHER: Negative. IMPRESSION: 1. Stable surgical changes without evidence of hardware failure or change in alignment. Electronically authenticated by: GERARDO AUGUSTIN Date: 2022-02-05 06:48[facility]10-31-2022 NotePROCEDURE: XR FOOT LT 2V COMPARISON: 01/24/2021 HISTORY: Pain FINDINGS: 2 minute 27 seconds of fluoroscopy. 57 images. Fluoroscopic images demonstrate triple arthrodesis with posterior calcaneal osteotomy and subtalar fusion. Placement of a wedge spacer in the medial cuneiform. IMPRESSION: Images from triple arthrodesis Electronically authenticated by: YOU NEWELL Date: 2022-01-06 15:43[facility]10-31-2022 NotePROCEDURE: XR FOOT LT MIN 3 VIEWS, XR ANKLE LT MIN 3 V COMPARISON: 01/24/2021 HISTORY: Pain FINDINGS: BONES:Interval triple arthrodesis. Posterior calcaneal osteotomy and subtalar fusion. Placement of a surgical staple across the talonavicular joint. Transverse osteotomy and wedged spacer placement medial cuneiform. No acute fracture or dislocation. Moderate degenerative changes in SOFT TISSUES:Soft tissue swelling and subcutaneous emphysema. Dorsal skin debbie EFFUSION:None visible. OTHER: Negative. IMPRESSION: Interval triple arthrodesis Electronically authenticated by: YOU NEWELL Date: 2022-01-06 13:01[facility]10-31-2022 NotePROCEDURE: XR FOOT LT MIN 3 VIEWS, XR ANKLE LT MIN 3 V COMPARISON: 01/24/2021 HISTORY: Pain FINDINGS: BONES:Interval triple arthrodesis. Posterior calcaneal osteotomy and subtalar fusion. Placement of a surgical staple across the talonavicular joint. Transverse osteotomy and wedged spacer placement medial cuneiform. No acute fracture or dislocation. Moderate degenerative changes in SOFT TISSUES:Soft tissue swelling and subcutaneous emphysema. Dorsal skin debbie EFFUSION:None visible. OTHER: Negative. IMPRESSION: Interval triple arthrodesis Electronically authenticated by: YOU NEWELL Date: 2022-01-06 13:01[facility]2022 NoteHNO ID: [id number] Author: Darrel Almendarez DPM Service: ? Author Type: Physician Type: Progress Notes Filed: 08/12/2021 4:59 PM Note Text: Patient Visit for Remi Zarco 1945 76 year old male SUBJECTIVE: Chief Complaint: Patient presents with: Left Foot - Established Patient, Follow Up, Pain Left Ankle - Established Patient, Follow Up, Pain Pain Scales: Verbal (Numeric Rating or Visual Analog Scale) Pain Level: 2 Pain Location: (Left foot and ankle) Description: Throbbing, Sharp Duration Units: Years Frequency: Intermittent Intervention/Comfort measure: Medication (Brace) Comments: He is here for a follow up of pain in his left foot and ankle and to discuss possible surgery. Additional HPI: difficulty walking LEFT hind foot and ankle With custom ankle foot orthosis (AFO) still has 8/10 pain with difficulty walking Worse with activity Uses cane PCP: Gil Gee MD PAST MEDICAL HISTORY Diagnosis Date - Acquired hypothyroidism - HTN (hypertension) - Lumbar back pain - Persistent atrial fibrillation (HCC) Current Outpatient Medications Medication Sig - warfarin (COUMADIN) 4 mg tablet Take 2-4 mg by mouth. - magnesium hydroxide (MOM) 400 mg/5 mL suspension Take 30 mL by mouth once daily as needed for Constipation. - meloxicam (MOBIC) 15 mg tablet Take 15 mg by mouth once daily. Been taking one every other day - eplerenone (INSPRA) 25 mg tablet Take 25 mg by mouth once daily. - levothyroxine (SYNTHROID) 100 mcg tablet Take 100 mcg by mouth daily before breakfast. No current facility-administered medications for this visit. ALLERGIES Allergen Reactions - Morphine Other: See Comments Makes patient skin hurt PAST SURGICAL HISTORY Procedure Laterality Date - PAST SURGICAL HISTORY OF bilateral shoulders - TOTAL KNEE REPLACEMENT Knee replacement, total,bilateral FAMILY HISTORY Problem Relation Age of Onset - Heart Attack Father Social History Tobacco Use - Smoking status: Former Smoker Packs/day: 1.00 Years: 10.00 Pack years: 10.00 Types: Cigarettes Quit date: 1988 Years since quittin.4 - Smokeless tobacco: Never Used Substance Use Topics - Alcohol use: Yes Comment: rare - Drug use: No Tobacco Use: 1 packs/day, for 10 years. Quit 03/09/1988. Types: Cigarettes REVIEW OF SYSTEMS: The remainder of the ROS was reviewed with the patient and is negative except as noted. GENERAL: denies fever or chills CARDIOVASCULAR: Denies current chest pain or SOB (shortness of breath) OBJECTIVE: General: Pleasant in no acute distress Lower extremity exam: Vascular exam: Normal vascular exam, palpable pluses with brisk capillary fill Neurological exam: Normal neurological exam, gross epicritic sensation intact Dermatological exam: Normal exam without rashes or lesions of skin. 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 Treatment options discussed at length MRI ordered today: Based on History and physical exam MRI ordered. MRI will directly affect the treatment plan and is medically necessary to further evaluate the current diagnosis. Pre operative evaluation hind foot , midfoot , ankle All questions were answered. Remi Zarco appeared to be well informed. Greater than 50% of the visit was spent face to face counseling and/or coordinating care for the patient. [facility] [place] History of Present illness Narrative* Darrel Almendarez DPM - 08/12/2021 3:53 PM EDT Patient Visit for Remi Zarco 1945 76 year old male SUBJECTIVE: Chief Complaint: Patient presents with: Left Foot - Established Patient, Follow Up, Pain Left Ankle - Established Patient, Follow Up, Pain Pain Scales: Verbal (Numeric Rating or Visual Analog Scale) Pain Level: 2 Pain Location: (Left foot and ankle) Description: Throbbing, Sharp Duration Units: Years Frequency: Intermittent Intervention/Comfort measure: Medication (Brace) Comments: He is here for a follow up of pain in his left foot and ankle and to discuss possible surgery. Additional HPI: difficulty walking LEFT hind foot and ankle With custom ankle foot orthosis (AFO) still has 8/10 pain with difficulty walking Worse with activity Uses cane PCP: Gil Gee MD PAST MEDICAL HISTORY Diagnosis Date Acquired hypothyroidism HTN (hypertension) Lumbar back pain Persistent atrial fibrillation (HCC) Current Outpatient Medications Medication Sig warfarin (COUMADIN) 4 mg tablet Take 2-4 mg by mouth. magnesium hydroxide (MOM) 400 mg/5 mL suspension Take 30 mL by mouth once daily as needed for Constipation. meloxicam (MOBIC) 15 mg tablet Take 15 mg by mouth once daily. Been taking one every other day eplerenone (INSPRA) 25 mg tablet Take 25 mg by mouth once daily. levothyroxine (SYNTHROID) 100 mcg tablet Take 100 mcg by mouth daily before breakfast. No current facility-administered medications for this visit. ALLERGIES Allergen Reactions Morphine Other: See Comments Makes patient skin hurt PAST SURGICAL HISTORY Procedure Laterality Date PAST SURGICAL HISTORY OF bilateral shoulders TOTAL KNEE REPLACEMENT Knee replacement, total,bilateral FAMILY HISTORY Problem Relation Age of Onset Heart Attack Father Social History Tobacco Use Smoking status: Former Smoker Packs/day: 1.00 Years: 10.00 Pack years: 10.00 Types: Cigarettes Quit date: 1988 Years since quittin.4 Smokeless tobacco: Never Used Substance Use Topics Alcohol use: Yes Comment: rare Drug use: No Tobacco Use: 1 packs/day, for 10 years. Quit 03/09/1988. Types: Cigarettes REVIEW OF SYSTEMS: The remainder of the ROS was reviewed with the patient and is negative except as noted. GENERAL: denies fever or chills CARDIOVASCULAR: Denies current chest pain or SOB (shortness of breath) OBJECTIVE: General: Pleasant in no acute distress Lower extremity exam: Vascular exam: Normal vascular exam, palpable pluses with brisk capillary fill Neurological exam: Normal neurological exam, gross epicritic sensation intact Dermatological exam: Normal exam without rashes or lesions of skin. 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 Treatment options discussed at length MRI ordered today: Based on History and physical exam MRI ordered. MRI will directly affect the treatment plan and is medically necessary to further evaluate the current diagnosis. Pre operative evaluation hind foot , midfoot , ankle All questions were answered. Remi Zarco appeared to be well informed. Greater than 50% of the visit was spent face to face counseling and/or coordinating care for the patient. Darrel Almendarez DPM [facility] NoteHNO ID: [id number] Author: Darrel Almendarez DPM Service: ? Author Type: Physician Type: Progress Notes Filed: 07/10/2021 4:45 PM Note Text: Patient Visit for Remi Zarco 1945 76 year old male SUBJECTIVE: Chief Complaint: Patient presents with: Left Ankle - New, Pain Left Foot - Pain, New Pain Scales: Verbal (Numeric Rating or Visual Analog Scale) Pain Level: 0 Pain Location: Ankle-Left Description: Throbbing Duration Units: Years Frequency: Intermittent Intervention/Comfort measure: Medication (Steriod injections, ankle brace) Comments: He is here for pain in his left ankle. No known injury. Pain increases with standing and walking. Previously seen by Dr. Saucedo. Additional HPI: LEFT foot and ankle pain and deformity Some difficulty walking Limited to house ambulation Additional Modifying factor: What makes better / worse: He has been using custom ankle foot orthosis (AFO) ,however, it causes irritation AFO (Ankle Foot Orthosis) has been adjusted PCP: Gil Gee MD PAST MEDICAL HISTORY Diagnosis Date - Acquired hypothyroidism - HTN (hypertension) - Lumbar back pain - Persistent atrial fibrillation (HCC) Current Outpatient Medications Medication Sig - warfarin (COUMADIN) 4 mg tablet Take 2-4 mg by mouth. - magnesium hydroxide (MOM) 400 mg/5 mL suspension Take 30 mL by mouth once daily as needed for Constipation. - meloxicam (MOBIC) 15 mg tablet Take 15 mg by mouth once daily. Been taking one every other day - eplerenone (INSPRA) 25 mg tablet Take 25 mg by mouth once daily. - levothyroxine (SYNTHROID) 100 mcg tablet Take 100 mcg by mouth daily before breakfast. No current facility-administered medications for this visit. ALLERGIES Allergen Reactions - Morphine Other: See Comments Makes patient skin hurt PAST SURGICAL HISTORY Procedure Laterality Date - PAST SURGICAL HISTORY OF bilateral shoulders - TOTAL KNEE REPLACEMENT Knee replacement, total,bilateral FAMILY HISTORY Problem Relation Age of Onset - Heart Attack Father Social History Tobacco Use - Smoking status: Former Smoker Packs/day: 1.00 Years: 10.00 Pack years: 10.00 Types: Cigarettes Quit date: 1988 Years since quittin.3 - Smokeless tobacco: Never Used Substance Use Topics - Alcohol use: Yes Comment: rare - Drug use: No Tobacco Use: 1 packs/day, for 10 years. Quit 03/09/1988. Types: Cigarettes REVIEW OF SYSTEMS: The remainder of the ROS was reviewed with the patient and is negative except as noted. GENERAL: denies fever or chills CARDIOVASCULAR: Denies current chest pain or SOB (shortness of breath) OBJECTIVE: General: Pleasant in no acute distress Lower extremity exam: Vascular exam: Normal vascular exam, palpable pluses with brisk capillary fill Neurological exam: Normal neurological exam, gross epicritic sensation intact Dermatological exam: Normal exam without rashes or lesions of skin. No evidence of evidence of petechiae, purpura, telangiectasia Musculoskeletal exam: Eversion hind foot LEFT Depressed arch height with weight bearing LEFT Prominence of bone tarsometatarsal joint with instability Unable to single limb heel rise on affected side LEFT Posterior tibial tendon dysfunction Tenderness to palpation LEFT ANKLE Valgus deformity LEFT ANKLE and hind foot Deviated angular deformity toes Hallux malleus - reducible Other Gross overall Manual muscle strength evaluation relatively intact Other Gross range of motion appears to be intact to ankle and foot LABS: Most recent labs reviewed LABORATORY STUDIES: Recent Labs 04/06/18 0945 HB 10.3* WBC 8.55 PLT 226 X-ray severe degenerative joint disease midfoot , valgus deformity with degenerative joint disease ankle Deviated angular deformity toes ASSESSMENT: 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 Treatment options discussed at length Warned patient of risks of Total Ankle Joint Replacement I discussed with the patient consider different ankle bracing Consider diagnostic injections to determine location symptoms / ankle versus STJ (Talo-Calcaneal: Sub Talar Joint) , versus mid tarsal joint etc Consider alternative ankle bracing such as A.S.O. (Ankle Stabilizing Orthosis) -Elina- which may support hind foot All questions were answered. Remi Zarco appeared to be well informed. Greater than 50% of the visit was spent face to face counseling and/or coordinating care for the patient. [facility] [place] History of Present illness Narrative* Darrel Almendarez DPM - 07/10/2021 4:36 PM EDT Patient Visit for Remi Zarco 1945 76 year old male SUBJECTIVE: Chief Complaint: Patient presents with: Left Ankle - New, Pain Left Foot - Pain, New Pain Scales: Verbal (Numeric Rating or Visual Analog Scale) Pain Level: 0 Pain Location: Ankle-Left Description: Throbbing Duration Units: Years Frequency: Intermittent Intervention/Comfort measure: Medication (Steriod injections, ankle brace) Comments: He is here for pain in his left ankle. No known injury. Pain increases with standing and walking. Previously seen by Dr. Saucedo. Additional HPI: LEFT foot and ankle pain and deformity Some difficulty walking Limited to house ambulation Additional Modifying factor: What makes better / worse: He has been using custom ankle foot orthosis (AFO) ,however, it causes irritation AFO (Ankle Foot Orthosis) has been adjusted PCP: Gil Gee MD PAST MEDICAL HISTORY Diagnosis Date Acquired hypothyroidism HTN (hypertension) Lumbar back pain Persistent atrial fibrillation (HCC) Current Outpatient Medications Medication Sig warfarin (COUMADIN) 4 mg tablet Take 2-4 mg by mouth. magnesium hydroxide (MOM) 400 mg/5 mL suspension Take 30 mL by mouth once daily as needed for Constipation. meloxicam (MOBIC) 15 mg tablet Take 15 mg by mouth once daily. Been taking one every other day eplerenone (INSPRA) 25 mg tablet Take 25 mg by mouth once daily. levothyroxine (SYNTHROID) 100 mcg tablet Take 100 mcg by mouth daily before breakfast. No current facility-administered medications for this visit. ALLERGIES Allergen Reactions Morphine Other: See Comments Makes patient skin hurt PAST SURGICAL HISTORY Procedure Laterality Date PAST SURGICAL HISTORY OF bilateral shoulders TOTAL KNEE REPLACEMENT Knee replacement, total,bilateral FAMILY HISTORY Problem Relation Age of Onset Heart Attack Father Social History Tobacco Use Smoking status: Former Smoker Packs/day: 1.00 Years: 10.00 Pack years: 10.00 Types: Cigarettes Quit date: 1988 Years since quittin.3 Smokeless tobacco: Never Used Substance Use Topics Alcohol use: Yes Comment: rare Drug use: No Tobacco Use: 1 packs/day, for 10 years. Quit 03/09/1988. Types: Cigarettes REVIEW OF SYSTEMS: The remainder of the ROS was reviewed with the patient and is negative except as noted. GENERAL: denies fever or chills CARDIOVASCULAR: Denies current chest pain or SOB (shortness of breath) OBJECTIVE: General: Pleasant in no acute distress Lower extremity exam: Vascular exam: Normal vascular exam, palpable pluses with brisk capillary fill Neurological exam: Normal neurological exam, gross epicritic sensation intact Dermatological exam: Normal exam without rashes or lesions of skin. No evidence of evidence of petechiae, purpura, telangiectasia Musculoskeletal exam: Eversion hind foot LEFT Depressed arch height with weight bearing LEFT Prominence of bone tarsometatarsal joint with instability Unable to single limb heel rise on affected side LEFT Posterior tibial tendon dysfunction Tenderness to palpation LEFT ANKLE Valgus deformity LEFT ANKLE and hind foot Deviated angular deformity toes Hallux malleus - reducible Other Gross overall Manual muscle strength evaluation relatively intact Other Gross range of motion appears to be intact to ankle and foot LABS: Most recent labs reviewed LABORATORY STUDIES: Recent Labs 04/06/18 0945 HB 10.3* WBC 8.55 PLT 226 X-ray severe degenerative joint disease midfoot , valgus deformity with degenerative joint disease ankle Deviated angular deformity toes ASSESSMENT: 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 Treatment options discussed at length Warned patient of risks of Total Ankle Joint Replacement I discussed with the patient consider different ankle bracing Consider diagnostic injections to determine location symptoms / ankle versus STJ (Talo-Calcaneal: Sub Talar Joint) , versus mid tarsal joint etc Consider alternative ankle bracing such as A.S.O. (Ankle Stabilizing Orthosis) -Elina- which may support hind foot All questions were answered. Remi Zarco appeared to be well informed. Greater than 50% of the visit was spent face to face counseling and/or coordinating care for the patient. Darrel Almendarez DPM [facility] NoteHNO ID: [id number] Author: RT Lorenzo(Nora) Service: ? Author Type: Technologist Type: Progress Notes Filed: 07/10/2021 1:08 PM Note Text: Radiology Service Progress Note PATIENT NAME: Remi Zarco DATE OF SERVICE: July 10, 2021 TIME: 12:44 PM PATIENT IDENTITY VERIFICATION COMPLETED USING TWO (2) IDENTIFIERS: Name and Date of confirmed by patient verbally. FALL SCREENING: Has the patient had 2 falls in the last year or 1 fall with injury or currently using an Ambulatory Assistive Device (Walker, Cane, Wheelchair, Crutches, etc.)? Yes, Patient High Risk for Falls What interventions were put in place to prevent falls during this visit? Instructed Patient to Remain Seated (Not on Exam Table) Until Exam and Increased Observations by Caregivers PATIENT GENDER DATA: Male PATIENT RELEVANT IMPLANT DATA REVIEWED: Not Applicable RADIOLOGY DEPARTMENT: General X-ray: Exam(s) Completed: Lower Extremity X-Ray(s): Ankle, Left and Wt. Bearing, Foot, Left and Wt. Bearing PERIPHERAL IV DATA: Not applicable SIGNED BY: RT Lorenzo(Nora) July 10, 2021 12:44 [facility]05-04-2022 History of Present illness Narrative* RT Lorenzo(R) - 07/10/2021 12:44 PM EDT Radiology Service Progress Note PATIENT NAME: Remi Zarco DATE OF SERVICE: July 10, 2021 TIME: 12:44 PM PATIENT IDENTITY VERIFICATION COMPLETED USING TWO (2) IDENTIFIERS: Name and Date of confirmedby patient verbally. FALL SCREENING: Has the patient had 2 falls in the last year or 1 fall with injury or currently using an Ambulatory Assistive Device (Walker, Cane, Wheelchair, Crutches, etc.)? Yes, Patient High Riskfor Falls What interventions were put in place to prevent falls during this visit? Instructed Patient to Remain Seated (Not on Exam Table) Until Exam and Increased Observations by Caregivers PATIENT GENDER DATA: Male PATIENT RELEVANT IMPLANT DATA REVIEWED: Not Applicable RADIOLOGY DEPARTMENT: General X-ray: Exam(s) Completed: Lower Extremity X- Ray(s): Ankle, Left and Wt. Bearing, Foot, Left and Wt. Bearing PERIPHERAL IV DATA: Not applicable SIGNED BY: RT Lorenzo(R) July 10, 2021 12:44 PM documented in this encounterK[facility]04-08-2022 NoteHNO ID: [id number] Author: Manuel Saucedo DPM Service: ? Author Type: Physician Type: Progress Notes Filed: 06/14/2021 1:59 PM Note Text: [facility] Department of Orthopedics [facility] Orthopedic Surgery Name: Remi Zarco Date of Service: June 14, 2021 CC/HPI: This 76 year old very pleasant male patient presents to the clinic today essentially for an opinion guarded his left ankle. He said problems for years and wore an AFO for approximately 5 but the last cortisone injection given to him really did not help along with the brace. He said he can feel ankle crunching inside. He presents today sent for another opinion regarding his left ankle fusion versus ankle replacement. PAST MEDICAL HISTORY Diagnosis Date - Acquired hypothyroidism - HTN (hypertension) - Lumbar back pain - Persistent atrial fibrillation (HCC) Current Outpatient Medications Medication Sig - warfarin (COUMADIN) 4 mg tablet Take 2-4 mg by mouth. - magnesium hydroxide (MOM) 400 mg/5 mL suspension Take 30 mL by mouth once daily as needed for Constipation. - meloxicam (MOBIC) 15 mg tablet Take 15 mg by mouth once daily. Been taking one every other day - eplerenone (INSPRA) 25 mg tablet Take 25 mg by mouth once daily. - levothyroxine (SYNTHROID) 100 mcg tablet Take 100 mcg by mouth daily before breakfast. No current facility-administered medications for this visit. ALLERGIES Allergen Reactions - Morphine Other: See Comments Makes patient skin hurt PAST SURGICAL HISTORY Procedure Laterality Date - PAST SURGICAL HISTORY OF bilateral shoulders - TOTAL KNEE REPLACEMENT Knee replacement, total,bilateral FAMILY HISTORY Problem Relation Age of Onset - Heart Attack Father Social History Tobacco Use - Smoking status: Former Smoker Packs/day: 1.00 Years: 10.00 Pack years: 10.00 Types: Cigarettes Quit date: 1988 Years since quittin.2 - Smokeless tobacco: Never Used Substance Use Topics - Alcohol use: Yes Comment: rare - Drug use: No Physical Exam: Patient is approximately 6 foot tall and 255 pounds. He is seen today with a short articulated AFO on his left lower extremity. Upon removal The patient is alert and oriented x 3 in no apparent acute distress. Vascular: Pedal pulses are palpable DP and PT left. CFT is less than 3 seconds digits 1-5 left. Skin temperature is warm to cool from anterior knees to toes left. Some varicosities left. Normal pedal hair growth left. Neuro: Light touch is intact to all quadrants of foot and ankle with no apparent sensory deficits left. Derm: Unremarkable as related chief complaint left Ortho: Muscle strength is +5/5 for all pedal groups left. Subtalar joint, 1st MPJ and lesser MPJ ROM's are full and without pain or crepitus left. His ankle joint some valgus tilt with some crepitance. He has a substantial high arch/cavus foot structure with marked digital contracture digits 1 through 5 left. 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 Discussed results of clinical and radiographic examination with the patient in detail along with treatment options He was interested in the same surgeon who did Dr. Orantes's ankle since he was about to fix heis shoulder before he left for [place]. Discussed Dr. Torres but he does not want to drive to [facility]. Suggested he see Dr. Almendarez to discuss surgical options. Explained to patient that considering his advanced age and current body weight that an ankle replacement is not a very good option in my opinion. I suggested he see Dr. Almendarez to discuss other options outside of fusion if possible since he concerned that a fusion of his left ankle could affect his left lower extremity since his right knee has significant issues and feels his left leg is only is only good one he has. Appointment scheduling completed with Dr. Almendarez for an opinion. I discussed the significance of this problem and decision planning for surgical invention Manuel Saucedo, [facility] [place]04-08-[facility] History of Present illness Narrative* Marckeduardo Fair Serafin, AVERY - 06/14/2021 1:53 PM EDT [facility] Department [facility]oped[facility] Orthopedic Surgery Name: Remi Zarco Date of Service: June 14, 2021 CC/HPI: This 76 year old very pleasant male patient presents to the clinic today essentially for an opinion guarded his left ankle. He said problems for years and wore an AFO for approximately 5 but the last cortisone injection given to him really did not help along with the brace. He said he can feel ankle crunching inside. He presents today sent for another opinion regarding his left ankle fusion versus ankle replacement. PAST MEDICAL HISTORY Diagnosis Date Acquired hypothyroidism HTN (hypertension) Lumbar back pain Persistent atrial fibrillation (HCC) Current Outpatient Medications Medication Sig warfarin (COUMADIN) 4 mg tablet Take 2-4 mg by mouth. magnesium hydroxide (MOM) 400 mg/5 mL suspension Take 30 mL by mouth once daily as needed for Constipation. meloxicam (MOBIC) 15 mg tablet Take 15 mg by mouth once daily. Been taking one every other day eplerenone (INSPRA) 25 mg tablet Take 25 mg by mouth once daily. levothyroxine (SYNTHROID) 100 mcg tablet Take 100 mcg by mouth daily before breakfast. No current facility-administered medications for this visit. ALLERGIES Allergen Reactions Morphine Other: See Comments Makes patient skin hurt PAST SURGICAL HISTORY Procedure Laterality Date PAST SURGICAL HISTORY OF bilateral shoulders TOTAL KNEE REPLACEMENT Knee replacement, total,bilateral FAMILY HISTORY Problem Relation Age of Onset Heart Attack Father Social History Tobacco Use Smoking status: Former Smoker Packs/day: 1.00 Years: 10.00 Pack years: 10.00 Types: Cigarettes Quit date: 1988 Years since quittin.2 Smokeless tobacco: Never Used Substance Use Topics Alcohol use: Yes Comment: rare Drug use: No Physical Exam: Patient is approximately 6 foot tall and 255 pounds. He is seen today with a short articulated AFO on his left lower extremity. Upon removal The patient is alert and oriented x 3 in no apparent acute distress. Vascular: Pedal pulses are palpable DP and PT left. CFT is less than 3 seconds digits 1-5 left. Skin temperature is warm to cool from anterior knees to toes left. Some varicosities left. Normal pedalhair growth left. Neuro: Light touch is intact to all quadrants of foot and ankle with no apparent sensory deficits left. Derm: Unremarkable as related chief complaint left Ortho: Muscle strength is +5/5 for all pedal groups left. Subtalar joint, 1st MPJ and lesser MPJ ROM's are full and without pain or crepitus left. His ankle joint some valgus tilt with some crepitance. He has a substantial high arch/cavus foot structure with marked digital contracture digits 1 through 5 left. 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 Discussed results of clinical and radiographic examination with the patient in detail along with treatment options He was interested in the same surgeon who did Dr. Orantes's ankle since he was about to fix heis shoulder before he left for [place]. Discussed Dr. Torres but he does not want to drive to [facility]. Suggested he see Dr. Almendarez to discuss surgical options. Explained to patient that considering his advanced age and current body weight that an ankle replacement is not a very good option in my opinion. I suggested he see Dr. Almendarez to discuss other options outside of fusion if possible since he concerned that a fusion of his left ankle could affect his left lower extremity since his right knee has si gnificant issues and feels his left leg is only is only good one he has. Appointment scheduling completed with Dr. Almendarez for an opinion. I discussed the significance of this problem and decision planning for surgical invention Manuel Saucedo DPM documented in this encounterK[facility] CenterEvaluation note* Diagnosis Acquired valgus deformity of left ankle- Primary Ankle instability, left Chronic pain of left ankle documented in this encounter [facility]* Diagnosis DJD (degenerative joint disease), ankle and foot, left- Primary Acquired valgus deformity of left ankle PTTD (posterior tibial tendon dysfunction) Other disorders of synovium, tendon, and bursa Difficulty walking Difficulty in walking documented in this encounter [facility]* Diagnosis Left ankle pain, unspecified chronicity DJD (degenerative joint disease), ankle and foot, left documented in this encounter [facility]* Diagnosis DJD (degenerative joint disease), ankle and foot, left- Primary Osteonecrosis (HCC) Aseptic necrosis of bone, site unspecified PTTD (posterior tibial tendon dysfunction) Other disorders of synovium, tendon, and bursa Acquired valgus deformity of left ankle Difficulty walking Difficulty in walking Ankle instability, left Chronic pain of left ankle documented in this encounter [facility]Eval[facility] noteNo assessment information availableSt. [facility] Work Phone: Evaluation note* Diagnosis detention (current) use of anticoagulants Long-term (current) use of anticoagulants Essential hypertension Unspecified essential hypertension Persistent atrial fibrillation ([facility]) Atrial fibrillation documented in this encounter [facility] SystemHistory general Narrative - Reported* Type Description Date Medical History HYPERTENSION Medical History HYPOTHYROIDISM Surgical History BILATERAL KNEE REPLACEMENT Surgical History LEFT SHOULDER REPLACEMENT Surgical History MULTIPLE SURGERIES ON BOTH SHOU LDER Surgical History BENIGN TUMOR UNDER LEFT EAR Surgical History LEFT FOOT PARTIAL FUSION Hospitalization History SEE ABOVE [email or web address] Other Hospital Discharge instructions Additional Instructions Apply ointment. Shower tomorrow. Restart coumadin ..[facility] Work Phone: InstructionsNot on filedocumented in this encounter [employer] SystemInstructionsNot on filedocumented in this encounter [facility] HospitalKano Computing SystemReason for referral (narrative)* Diagnostic Procedure Only (Routine) - Closed Specialty Diagnoses / Procedures Referred By Mumtaz t Referred To Contact XR IMAGING Diagnoses DJD (degenerative joint disease), ankle and foot, left Procedures XR FOOT GENERAL 3V AP/LAT/OBL LEFT RADEX FOOT COMPLETE MINIMUM 3 VIEWS Darrel Almendarez DPM [address] [place] [address] Xr Imaging Referral ID Status Reason Start Date Expiration Date V isits Requested Visits Authorized [id number] Closed Auto-Generate d Referral 07/10/2021 08/09/[address] [facility] for referral (narrative)* Diagnostic Procedure Only (Routine) - Closed Specialty Diagnoses / Procedures Referred By Contac t Referred To Contact XR IMAGING Diagnoses DJD (degenerative joint disease), ankle and foot, left Procedures XR FOOT GENERAL 3V AP/LAT/OBL LEFT RADEX FOOT COMPLETE MINIMUM 3 VIEWS Darrel Almendarez DPM [address] [place] [address] Xr Imaging Referral ID Status Reason Start Date Expiration Date V isits Requested Visits Authorized [id number] Closed Auto-Generate d Referral 07/10/2021 08/09/2022 1 1 * Diagnostic Procedure Only (Routine) - Closed Specialty Diagnoses / Procedures Referred By Contac t Referred To Contact XR IMAGING Diagnoses Left ankle pain, unspecified chronicity Procedures XR ANKLE GENERAL 3V AP/LAT/OBL LEFT RADEX ANKLE COMPLETE MINIMUM 3 VIEWS Darrel Almendarez DPM [address] [place] [address] Xr Imaging Referral ID Status Reason Start Date Expiration Date V isits Requested Visits Authorized [id number] Closed Auto-Generate d Referral 06/28/2021 07/28/[address] [facility] for visit Narrative* Diagnostic Procedure Only (Routine) - Closed Specialty Diagnoses / Procedures Referred By Contac t Referred To Contact XR IMAGING Diagnoses Left ankle pain, unspecified chronicity Procedures XR ANKLE GENERAL 3V AP/LAT/OBL LEFT RADEX ANKLE COMPLETE MINIMUM 3 VIEWS Darrel Almendarez DPM [address] [place] [address] Xr Imaging Referral ID Status Reason Start Date Expiration Date V isits Requested Visits Authorized [id number] Closed Auto-Generate d Referral 06/28/2021 07/28/2022 1 1 [facility] Advance Directives No Advanced Directives Records FoundDocuments on File Type Date Recorded 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 Advance Directive(s) 04/02/2018 11:18 AM Advance Directive(s) 03/26/2018 1:54 PM Advance Directive(s) 03/22/2018 10:08 AM Documents on File Type Date Recorded 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 Advance Directive(s) 04/02/2018 11:18 AM Advance Directive(s) 03/26/2018 1:54 PM Advance Directive(s) 03/22/2018 10:08 AM Advance Directive Response Recorded Date/ Time Advance Directives No May 27, 2 022 8:15am Reason for Referral Specialty Diagnoses / Procedures Referred By Contac t Referred To Contact MR IMAGING Diagnoses Osteonecrosis (HCC) Procedures MRI ANKLE WO IVCON LT MRI ANY JT LOWER EXTREM W/O CONTRAST Darrel Spring DPM [address] [place] [address] Mr Imaging Referral ID Status Reason Start Date Expiration Date Visits Requested Visits Authorized [id number] Pending Review Auto-Generat ed Referral 08/12/2021 09/11/2022 1 1 Summary Purpose Family History No Family History Records Found Relationship Condition Age at Onset Recorded Date/T annette father Myocardial infarction Unknown Not Specified Congestive heart failure Unknown sister Malignant neoplasm of breast Unknown Chief Complaint and Reason for Visit Chief Complaint Basal Cell Skin Canc er Chief Complaint Basal Cell Skin Canc er Basal Cell Skin Cancer Additional Source Comments Source Comments (unrecognize d section and content) In the event this informatio n is protected by the Federal Confidentiality of Alcohol and Drug Abuse Patient Records regulations: The Federal rules restrict any use of the information to criminally investigate or prosecute any alcohol or drug abuse patient.[facility] Center[facility] the event this information is protected by the Federal Confidentiality of Alcohol and Drug Abuse Patient Records regulations: The Federal rules restrict any use of the information to criminally investigate or prosecute any alcohol or drug abuse patient.[facility] CenterIn the event this information is protected by the Federal Confidentiality of Alcohol and Drug Abuse Patient Records regulations: The Federal rules restrict any use of the information to criminally investigate or prosecute any alcohol or drug abuse patient.[facility] CenterIn the event this information is protected by the Federal Confidentiality of Alcohol and Drug Abuse Patient Records regulations: The Federal rules restrict any use of the information to criminally investigate or prosecute any alcohol or drug abuse patient.[facility] CenterIn the event this information is protected by the Federal Confidentiality of Alcohol and Drug Abuse Patient Records regulations: The Federal rules restrict any use of the information to criminally investigate or prosecute any alcohol or drug abuse patient.[facility] Reason for Visit (unrecogniz ed section and content) Reason Comments Pain Reason Comments Radio Gen RMP Reason Comments New Pain Reason Comments Established Patient Follow Up Pain Reason Onset Date Comments Cardiac Clearance 03/10/2023 Care Teams (unrecognized sec tion and content) Campus Interviews Intern Relationship Specialty Start Date End Date Gil Gee [address] [place] [address] PCP - General Family Practice 02/25/18 Campus Interviews Intern Relationship Specialty Start Date End Date Gil Gee [address] [place] [address] PCP - General Family Practice 02/25/18 Campus Interviews Intern Relationship Specialty Start Date End Date Gil Gee [address] [place] [place] [address] PCP - General Family Practice 02/25/18 Campus Interviews Intern Relationship Specialty Start Date End Date Gil Gee [address] [place] [address] PCP - General Family Practice 02/25/18 Campus Interviews Intern Relationship Specialty Start Date End Date Gil Gee [address] [place] [address] PCP - General Family Practice 02/25/18 Team Status: Active Member Role Status Dates Gil Gee MD Primary Care Provider Active Team Status: Inactive Member Role Status Dates Willie Ross DO Attending Provider Active Gil Gee MD Primary Care Provider Active Campus Interviews Intern Relationship Specialty Start Date End Date Gil Gee MD [address] [place] [address] PCP - General 12/09/16 Campus Interviews Intern Relationship Specialty Start Date End Date Gil Gee MD [address] [place] [address] (work) PCP - General 12/09/16 (unrecognized sect ion and content) No Status Records FoundNo Status Records FoundNo Status Records FoundNo Status Records Found INFORMATION SOURCE (unrecogn ized section and content) DATE CREATED AUTHOR 08/13/2021 [facility] DATE CREATED AUTHOR AUTHOR'S ORGANIZ ATION 07/21/2022 [facility] DATE CREATED AUTHOR AUTHOR'S ORGANIZ ATION 03/08/2023 [facility] DATE CREATED AUTHOR AUTHOR'S ORGANIZ ATION 03/25/2023 [facility] EPIC Goals (unrecognized section and content) Goals may be documented in a n alternate section FOR RECORDS PERTAINING TO PATIENTS WHO ARE OR HAVE BEEN ENROLLED IN A CHEMICAL DEPENDENCY/SUBSTANCEABUSE PROGRAM, SOME INFORMATION MAY BE OMITTED. This clinical summary was aggregated from multiple sources. Caution should be exercised in using it in the provision of clinical care. This summary normalizes information from multiple sources, and as a consequence, information in this document may materially change the coding, format and clinical context of patient data. In addition, data may be omitted in some cases. CLINICAL DECISIONS SHOULD BE BASED ON THE PRIMARY CLINICAL RECORDS. [employer] [facility] provides no warranty or guarantee of the accuracy or completeness of information in this document.
--- NOTE | 2023-03-30 13:49 | CA_ITS ---
[facility] Test Date: 2023-03-30 Pat Name: REMI ZARCO Department: Room: - Gender: Male Certified Procedural Coder: GRACE SEGOVIA : 1945 Requested By: 2013 Order Number: [id number] Reading MD: PIERRE WATTS Interpretive Statements Monophasic doppler waveform of the LLE PVR waveform with normal upstroke, amplitude and dicrotic notch Right: - significant pressure gradient between the thigh and calf cuff - normal ANJALI Left: - significant pressure gradient between the calf and DP cuff - normal ANJALI Impression: - right calf index inconsistent w/ adjacent indices and likely is erroneous. - normal arterial evaluation of the lower extremities without hemodynamic impairment of the B/L lower extremities at rest. (right ANJALI 1.01, left ANJALI 1.03) - normal B/L TBI - clinical correlation advised Electronically Signed On 03-31-2023 7:01:08 EST by PIERRE WATTS
== END 2023-03-30 12:17 | disposition home or self-care (01) ==
PROVIDERS: PCP Family Medicine; Visit Provider Podiatrist Foot & Ankle Surgery
DX: R09.89 Other specified symptoms and signs involving the circulatory and respiratory systems (principal)
CPT/HCPCS: 93923

== ENCOUNTER 2023-05-27 13:30 | Outpatient (OUT) | payer MEDICARE, OTHER, BC, SELFPAY ==
--- NOTE | 2023-05-27 | XR_ITS ---
The [address] [address] Patient Name: REMI ZARCO MRN: [id number] date: 1945 Sex: M Assigned Patient Location: Current Patient Location: Accession/Order Number: [id number] Exam Date: 05/27/2023 13:34 Report Date: 05/28/2023 07:09 At the request of: LEXI HERNANDEZ Procedure: XR foot LT min 3V PROCEDURE: XR foot LT min 3V HISTORY: LEFT FOOT PAIN COMPARISON: XR foot left 02/18/2023 FINDINGS: BONES:Prior posterior calcaneal osteotomy and fusion. Fusion of the talocalcaneal joints and talonavicular joint. Osteotomy and wedge placement within the medial cuneiform. Bone staple along dorsal margin of the talonavicular joints with fracture of the posterior leg. Flattening of the plantar arch. Moderate degenerative changes of the first through fourth tarsal-metatarsal joints. Mild degenerative changes first metatarsophalangeal joints and flexion of the second through 5th toes. SOFT TISSUES:No visible soft tissue swelling. EFFUSION:None visible. OTHER: Negative. XR/XR foot LT min 3V IMPRESSION: 1. Stable surgical changes and prior fracture of the dorsal bone staple. 2. Grossly stable pes planus and multifocal degenerative changes. Electronically authenticated by: GERARDO AUGUSTIN Date: 05/28/2023 07:09
== END 2023-05-27 13:31 | disposition home or self-care (01) ==
LOC: EC 13:31
PROVIDERS: PCP Family Medicine; Visit Provider Podiatrist Foot & Ankle Surgery
DX: M79.672 Pain in left foot (principal); Z98.890 Other specified postprocedural states
CPT/HCPCS: 73630

== ENCOUNTER 2023-06-02 13:39 | Outpatient (OUT) | payer MEDICARE, OTHER, BC, SELFPAY ==
--- NOTE | 2023-06-02 13:42 | CT_ITS ---
[address] [address] Patient Name: REMI ZARCO MRN: [id number] date: 1945 Sex: M Assigned Patient Location: CT Current Patient Location: CT Accession/Order Number: [id number] Exam Date: 06/02/2023 13:50 Report Date: 06/02/2023 15:18 At the request of: LEXI HERNANDEZ Procedure: CT ankle LT wo con EXAMINATION: CT ankle LT wo con HISTORY: Nonunion, Ankle Degenerative Joint Disorder COMPARISON: 10/31/2022 TECHNIQUE: Multi-planar CT images were created without IV contrast. Dose reduction techniques were achieved by using automated exposure control and/or adjustment of mA and/or kV according to patient size and/or use of iterative reconstruction technique. FINDINGS: BONES: Posterior calcaneal osteotomy. Subtalar fusion, stable. Talonavicular fusion with dorsal surgical staple. Transverse osteotomy and wedged spacer medial cuneiform. Moderate to severe diffuse degenerative changes with joint space narrowing and subchondral mixed lytic and sclerotic changes. No bony bridging across the posterior calcaneus or talocalcaneal joints. Lucency in the distal tibia from bone graft harvesting SOFT TISSUES: Diffuse soft tissue swelling. EFFUSION: None visible. OTHER: Negative. 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
--- OUTSIDE RECORDS SUMMARY | 2023-06-02 14:01 | XMS_ITS | CCD ---
Author Organization [facility] Care Team Providers Care Production Supervisor Off Shift Name Role Phone Gil Gee Primary Care Provider [phone] DEMETRIA, DR GERARDO Melendez Consulting Unavailable NADERER, [...] NADERER, DR GIL Fairchild Primary Care Unavailable KIRSTIE VAUGHN Attending Unavailable JOHANAKIRSTIE Admitting Unavailable JOHANA, KIRSTIE Consulting Unavailable ZIEBER, DR GERARDO Melendez Consulting Unavailable NADERER, DR GIL Fairchild Primary Care Unavailable JOHANA, KIRSTIE Attending Unavailable JOHANA, KIRSTIE Admitting Unavailable JOHANA, KIRSTIE Consulting Unavailable HIGHLANDER, LEXI Melendez Consulting Unavailable NADERER, DR GIL Fairchild Primary Care Unavailable HIGHLANDER, LEXI Melendez Attending Unavailable HIGHLANDER, PETER D Admitting Unavailable WALDEMAR BARRETT Consulting Unavailable WEST, DR YOU Whiteside Consulting Unavailable NADHANNAH, DR GIL Fairchild Attending Unavailable NADERER, DR GIL Fairchild Admitting Unavailable NADERER, DR GIL Fairchild Primary Care Unavailable NADERENora, DR GIL Fairchild Consulting Unavailable LEXI SNOW Consulting Unavailable TRACEY WEBER Consulting Unavailable STEPHON ., CHRISTINA ROJO Consulting Unavailable LEXI SNOW Procedure Practitioner Unava MACY Carpenter Consulting Unavailable WEST, DR YOU Whiteside Consulting Unavailable GERARD, DR GIL Fairchild Primary Care Unavailable JOHANA, KIRSTIE Attending Unavailable JOHANA, KIRSTIE Admitting Unavailable JOHANA, KIRSTIE Consulting Unavailable Yolanda Somers Unavailable DO Willie Ross Attending Provider [phone] MD Gil eGe Primary Care Provider Gil Gee MD Primary Care Provider WILLIE ROSS Attending Unavailable PACO MULTANI Attending Unavailable MURCEK, WILLIE Fair Attending Unavailable MURCEK, WILLIE Fair Attending Unavailable Murceheather, Willie Admitting Unavailable Murcek, Willei Attending Unavailable Naderer, Gil Primary Care Unavailable Murkris, Willie Attending Unavailable Naderenora, Gil Primary Care Unavailable Murceheather, Willie Admitting Unavailable SERVICE, JOBST Referring Unavailable NADHANNAH, GIL Primary Care Unavailable SERVICE, JOBST Referring Unavailable NADHANNAH, GIL Primary Care Unavailable Allergies Allergy Classification Reported Allergen(s) Allergy Type Date of Onset Reaction(s) Facility (13 sources) Morphine; Translations: [MORPHINE] Drug Allergy 7 Other: See Comments [facility] (2 sources) Morphine Drug Allergy [facility] Repository (3 sources) rosuvastatin; Translations: [rosuvastatin] Drug Allergy 3 Muscle Pain [facility] (1 source) Morphine Drug Allergy 3 [facility] Repository Medications Current Medications Medication Drug Class(es) Dates Sig (Normalized) Sig (Original) ascorbic acid 1000 mg extended release oral tablet (6 sources) Vitamin C Start: 02-10-2023 take 1 tablet by mouth once daily in the morning Ascorbic Acid (Vitamin C) (Vitamin C) 1,000 mg Tablet Extended Release Active 1000 MG PO Every morning February 10, 2023 12:00am ascorbic acid, v itamin C, 250 mg tablet,chewable Chew and swallow. 0 Active bisoprolol fumarate 5 mg / hydroCHLOROthiazide 6.25 mg oral tablet (7 sources) Thiazide Diuretic, beta-Adrenergic Jakob Start: 02-23-2023 [...] Days Active eplerenone 25 mg oral tablet (12 sources) Aldosterone Antagonist Start: 11-17-2022 take 1 tablet by mouth in the morning eplerenone (INSPRA) 25 mg tablet Indications: Essential hypertension , Atrial fibrillation ([facility]) Take 1 tablet (25 mg total) by mouth in the morning. 90 tablet 3 11/17/2022 Active Start: 10-05-2017 take 1 tablet by nando th once daily eplerenone (INSPRA) 25 mg tablet Take 25 mg by mouth once daily. 0 10/05/2017 Active Comment on above: Take 25 mg by mouth once daily. furosemide 20 mg oral tablet (7 sources) Loop Diuretic Start: 3 take 1 tablet by mouth once daily furosemide (LASIX) 20 mg tablet Take 1 tablet (20 mg total) by mouth daily. 90 tablet 3 11/05/2022 Active levothyroxine sodium 0.1 mg oral tablet (12 sources) l-Thyroxine Start: 3 take 1 tablet by mouth once daily in the morning Levothyroxine (Synthroid) 100 mcg tablet Active 100 MCG PO Every morning February 10, 2023 12:00am Synthroid 100 MC G Oral for 90 Days Active Comment on above: Take 100 mcg by mout h daily before breakfast. meloxicam 15 mg oral tablet (12 sources) Nonsteroidal Anti-inflammatory Drug Start: 8 take 15 mg by mouth every other day Meloxicam Active 15 MG PO Q2D February 10, 2023 12:00am Comment on above: Take 15 mg by mouth once daily. Been taking one every other day [place] 7-Coe-Oaj-Fish Oil (Fish Oil) 1,200 (144-216) mg Capsule (2 sources) Start: 3 take 1 capsule by mouth once daily in the morning [place] 0-Yvt-Rvg-Fish Oil (Fish Oil) 1,200 (144-216) mg Capsule Active 1 CAP PO Every morning February 10, 2023 12:00am omega 4-wfe-mxh-fish oil 300-1,000 mg capsule (4 sources) omega 3-dha-epa- fish oil 300-1,000 mg capsule Take by mouth. 0 Active warfarin sodium 4 mg oral tablet (14 sources) Vitamin K Antagonist Start: 4 take 0.5-1 tablets by mouth in the evening warfarin (COUMADIN) 4 mg tablet Indications: terminal carman (current) use of anticoagulants , Essential hypertension , Persistent atrial fibrillation (CMS-HCC) Take 0.5-1 tablets (2-4 mg total) by mouth in the evening. as directed by Romel HANDY (Medication Therapy Management).. 90 tablet 1 03/11/2023 Active Start: 02-10-2023 take 1 tablet by nando th once daily in the morning Warfarin (Jantoven) 4 mg tablet Active 4 MG PO Every morning February 10, 2023 12:00am 4 mg tue, wed, fri, sat, sun 2 mg thu and Start: 04-07-2022 End: 03-11-2023 take 1 tablet by mouth five times weekly Warfarin (Jantoven) 4 mg tablet Active 4 MG PO 5 TIMES PER WEEK February 10, 2023 12:00am 4 mg tue, wed, fri, sat, sun 2 mg thu and urs Start: 04-07-2022 take 1 tablet by nando th two times weekly Warfarin (Jantoven) 4 mg tablet Active 2 MG PO Twice a Week February 24, 2023 12:00am 4 mg tue, wed, fri, sat, sun 2 mg thu and urs Start: 11-27-2020 warfarin (COUM TRISTIAN) 4 mg [...] Date Documented Da te Episodic/Chronic Cardiac dysrhythmias (7 sources) Persistent atrial fibrillation; Translations: [Other persistent atrial fibrillation] Onset: 01-12-2017 01-14-2022 Chronic Complications of surgical procedures or medical care (1 source) Disruption of external operation (surgical) wound, not elsewhere classified, initial encounter Episodic Essential hypertension (9 sources) Essential (primary) hypertension; Translations: [Essential hypertension] Onset: 01-12-2017 01-12-2017 Chronic Osteoarthritis (18 sources) Osteoarthritis of joint of left shoulder region; Translations: [Primary osteoarthritis, left shoulder] Onset: 05-21-2015 05-21-2015 Chronic Other acquired deformities (1 source) Contracture, left ankle; Translations: [CONTRACTURE LEFT ANKLE] Onset: 01-29-2022 Chronic Other aftercare (7 sources) Long-term current use of anticoagulant; Translations: [terminal carman (current) use of anticoagulants] Onset: 07-30-2018 07-30-2018 Episodic Other aftercare (1 source) Encounter for therapeutic drug level monitoring; Translations: [Encounter for therapeutic drug level monitoring] Onset: 05-22-2023 Episodic Other bone disease and musculoskeletal deformities [...] [Encounter for preprocedural laboratory examination] Onset: 02-10-2023 Unclassified (1 source) Other persistent atrial fibrillation; Translations: [Other persistent atrial fibrillation] Onset: 01-14-2022 Past or Other Problems Problem Classification Problem Date Documented Da te Episodic/Chronic Acquired foot deformities (11 sources) Acquired valgus deformity of left ankle; Translations: [Valgus deformity, not elsewhere classified, left ankle] Onset: 07-10-2021 Episodic Mood disorders (4 sources) Mood disorders Onset: 12-15-2019 12-15-2019 Nonspecific chest pain (4 sources) Chest pain; Translations: [Chest pain, unspecified] Onset: 04-09-2016 Resolved: 01-14-2018 01-14-2018 Episodic Other aftercare (2 sources) terminal carman (current) use of anticoagulants; Translations: [[facility] CURRNT USE ANTICOAGULANTS] Onset: 07-30-2018 Episodic Other aftercare (4 sources) Other residential (current) drug therapy; Translations: [OTH [facility] CURRENT DRUG THERAPY] Onset: 10-23-2021 Episodic Other [...] Episodic Other ear and sense organ disorders (4 sources) Otalgia, left ear; Translations: [Otalgia, unspecified] Onset: 12-15-2019 12-15-2019 Episodic Other lower respiratory disease (1 source) Other nonspecific abnormal finding of lung field; Translations: [OTH NONSPECIFIC ABN FIND LNG FIELD] Onset: 10-24-2021 Episodic Other lower respiratory disease (4 sources) Dyspnea; Translations: [Shortness of breath] Onset: [...] Test Name Value Interpretation Reference Range Facility POCT Protime / INRon 024 INR Coag (PPP) [Relative time] 2.0 {INR} Abnormal 0.8 - 1.2 [facility] Interpretation and review of laboratory results Abnormal [facility] POCT Protime / INRon 024 INR Coag (PPP) [Relative time] 2.2 {INR} Abnormal 0.8 - 1.2 [facility] Interpretation and review of laboratory results Abnormal [facility] Activated partial thrombopla stin time (aPTT) in platelet poor plasma by coagulation aOrdered By: YOU RAMIREZ on 02-24-2023 aPTT Coag (PPP) [Time] 30.8 s 25.1-36.5 [facility] Comment on above: A hematocrit value g reater than 55% may lead to inaccurate results in coagulation testing. Patients having hematocrit values >55% require a special collection tube for coagulation studies. Please contact the laboratory at [phone] for redraw instructions. Coagulation Profileon 2022 aPTT Coag (Bld) [Time] 30.8 s Normal 25.1-36.5 [facility] Comment on above: Result Comment: A he matocrit value greater than 55% may lead to inaccurate results in coagulation testing. Patients having hematocrit values >55% require a special collection tube for coagulation studies. Please contact the laboratory at [phone] for redraw instructions. PERFORMED BY: [address] [id number] PATHOLOGIST VASCULAR PHYSICIAN QING BABB M.D. Performed By: #### P P #### [facility] [address] [place] [address] [facility] INR Coag (PPP) [Relative time] 1.2 {INR} Normal [facility] Comment on above: Result Comment: INR Therapeutic [...] 4.5 Performed By: #### P P #### [facility] [address] [place] [id number] [facility] PT Coag (PPP) [Time] 13.9 s High 9.0-12.9 [facility] Comment on above: Result Comment: A he matocrit value greater than 55% may lead to inaccurate results in coagulation testing. Patients having hematocrit values >55% require a special collection tube for coagulation studies. Please contact the laboratory at [phone] for redraw instructions. Performed By: #### P P #### [facility] [address] [place] [id number] [facility] INR in Platelet poor plasma by Coagulation assayOrdered By: YOU RAMIREZ on 02-24-2023 INR Coag (PPP) [Relative time] 1.2 {INR} [facility] Comment on above: INR Therapeutic Rang e [...] - 4.5 Jose 02-24-2023 L ------ Specimen: [id number] Received: 02/24/23 Status: MIK [place]more Num: [id number] Spec Type: Surgical Subm Dr: Willie Ross DO Tissues: A Skin-Other than Cyst, tag, debridement or plastic repair (LT CHEEK) B Skin-Other than Cyst, tag, debridement or plastic repair (RT RESTORATION) Procedures: HE/6, Gross/Micro L4/2, FS HE/6 Age/ Patient Sex Location Account Attending Physician Remi Zarco 77/M [place] [id number] Willie Ross DO SPEC NUM: [id number] RECD: 02/24/23 STATUS: MIK REFlaquita NUM: [id number] ARIAN: 02/24/23 [facility] DR: Willie Ross DO ENTERED: 02/24/23 HECTOR BLANCO: MARY ANNE TYPE: Surgical DEPT: S ORDERED: [...] evidently negative for malignancy B. Skin, right yazidi, excision: - Benign seborrheic keratosis of the mixed reticular, mildly pigmented, and the usual plaque types - Incidental occasional mild colonizations of dermatophyte spores of note - Adequately removed for assessment, and no evidence of malignancy, squamous dysplasia, or nevoid atypia identified Specimen: [id number] Received: 02/24/23 Status: MIK [place] Num: [id number] Spec Type: Surgical Subm Dr: Willie Ross DO Tissues: A Skin-Other than Cyst, tag, debridement or plastic repair (LT CHEEK) B Skin-Other than Cyst, tag, debridement or plastic repair (RT RESTORATION) Procedures: HE/6, Gross/Micro L4/2, FS /6 Patient: Remi Zarco [id number] (Continued) Specimen: [id number] Received: 02/24/23 (Continued) Signed (signature on file) Oseas Lai MD 02/25/23 1518 Specimen: [id number] Received: 02/24/23 Status: MIK [place] Num: [id number] Spec Type: Surgical Subm Dr: Willie Ross DO Tissues: A Skin-Other than Cyst, tag, debridement or plastic repair (LT CHEEK) B Skin-Other than Cyst, tag, debridement or plastic repair (RT RESTORATION) Procedures: HE/6, Gross/Micro L4/2, FS HE/6 Patient: Remi Zarco [id number] (Continued) Specimen: [id number] Received: 02/24/23 (Continued) Clinical Information A) basal cell skin [...] the patient's name, date of and right yazidi skin lesion is a 1.7 x 0.7 [...] tip B (more content not included)... Normal [facility] Prothrombin time (PT)Ordered By: YOU RAMIREZ on 02-24-2023 PT Coag (PPP) [Time] 13.9 s 9.0-12.9 [facility] Comment on above: A hematocrit value g reater than 55% may lead to inaccurate results in coagulation testing. Patients having hematocrit values >55% require a special collection tube for coagulation studies. Please contact the laboratory at [phone] for redraw instructions. Basic Metabolic Panelon Anion gap [Moles/Vol] 8.9 mmol/L Normal 6.0-15.0 [facility] Comment on above: Performed By: #### C BC, BMP #### [facility] [address] [place] [address] [place] Calcium [Mass/Vol] 9.3 mg/dL Normal 8.6-10.3 [facility] Comment on above: Result Comment: PERF ORMED BY: [place] [address] PATHOLOGIST VASCULAR PHYSICIAN QING BABB M.D. Performed By: #### C BC, BMP #### [facility] [address] [place] [address] [place] Chloride [Moles/Vol] 105 mmol/L Normal 98-107 [facility] Comment on above: Performed By: #### C BC, BMP #### [facility] [address] CO2 [Moles/Vol] 28.3 mmol/L Normal 21.0-31.0 [facility] Comment on above: Performed By: #### C BC, BMP #### [facility] [address] [place] [address] [place] Creatinine [Mass/Vol] 1.19 mg/dL Normal 0.70-1.30 [facility] Comment on above: Performed By: #### C BC, BMP #### [place] [address] [place] GFR/1.73 sq M.predicted MDRD (S/P/Bld) [Vol rate/Area] mL/min/{1.73_m2} Normal [facility] Comment on above: Performed By: #### C BC, BMP #### [facility] [address] [place] [address] [place] Glucose [Mass/Vol] 93 mg/dL Normal 70-100 [facility] Comment on above: Result Comment: [place] Glucose Reference Range is dependent on time and content of last meal. Glucose of more than 200 mg/dL in a nonstressed, ambulatory subject supports the diagnosis of Diabetes Mellitus. ADA recommended reference range Performed By: #### C BC, BMP #### [facility] [address] Potassium [Moles/Vol] 4.2 mmol/L Normal 3.5-5.1 [facility] Comment on above: Performed By: #### C BC, BMP #### [facility] [address] Sodium [Moles/Vol] 138 mmol/L Normal 136-145 [facility] Comment on above: Performed By: #### C BC, BMP #### [facility] [address] Urea nitrogen [Mass/Vol] 21 mg/dL Normal 7-25 [facility] Comment on above: Performed By: #### C JAQUELIN, BMP #### [facility] [address] Basophils Auto (Bld) [#/Vol] Ordered By: Willie Ross on 02-10-2023 Basophils (Bld) [#/Vol] 0.1 10*3/uL 0.0-0.2 [facility] Basophils/100 WBC Auto (Bld) Ordered By: Willie Ross on 02-10-2023 Basophils/100 WBC (Bld) 1.2 % . [facility] Calcium [Mass/volume] in Ser um or PlasmaOrdered By: Willie Ross on 02-10-2023 Calcium [Mass/Vol] 9.3 mg/dL 8.6-10.3 [facility] Carbon dioxide, total [Moles /volume] in Serum or PlasmaOrdered By: Willie Ross on 02-10-2023 CO2 [Moles/Vol] 28.3 mmol/L 21.0-31.0 [facility] Chloride [Moles/volume] in S esther or PlasmaOrdered By: Willie Ross on 02-10-2023 Chloride [Moles/Vol] 105 mmol/L 98-107 [facility] Complete Blood Count Auto Di ffon 02-10-2023 Basophils (Bld) [#/Vol] 0.1 10*3/uL Normal 0.0-0.2 [facility] Comment on above: Result Comment: PERF ORMED BY: [place] [address] PATHOLOGIST VASCULAR PHYSICIAN QING BABB M.D. Performed By: #### C BC, BMP #### [address] Basophils/100 WBC (Bld) 1.2 % Normal . [facility] Comment on above: Performed By: #### C BC, BMP #### [address] Eosinophils (Bld) [#/Vol] 0.2 10*3/uL Normal 0.0-0.45 [facility] Comment on above: Performed By: #### C JAQUELIN, BMP #### [address] Eosinophils/100 WBC (Bld) 3.7 % Normal . [facility] Comment on above: Performed By: #### C BC, BMP #### [address] Erythrocyte distribution width (RBC) [Ratio] 14.4 % Normal 12.0-14.8 [facility] Comment on above: Performed By: #### C BC, BMP #### [address] Hematocrit (Bld) [Volume fraction] 37.2 % Low 38.8-50.0 [facility] Comment on above: Performed By: #### C BC, BMP #### [address] Hemoglobin (Bld) [Mass/Vol] 12.8 g/dL Low 13.0-17.0 [facility] Comment on above: Performed By: #### C BC, BMP #### [address] Lymphocytes (Bld) [#/Vol] 1.2 10*3/uL Normal 1.00-4.8 [facility] Comment on above: Performed By: #### C BC, BMP #### [place] [address] [place] Lymphocytes/100 WBC (Bld) 23.4 % Normal . [facility] Comment on above: Performed By: #### C BC, BMP #### [facility] [address] MCH (RBC) [Entitic mass] 30.3 pg Normal 27.5-35.2 [facility] Comment on above: Performed By: #### C BC, BMP #### [facility] [address] MCV (RBC) [Entitic vol] 87.9 fL Normal 83.5-101 [facility] Comment on above: Performed By: #### C BC, BMP #### [address] Mean Corpuscular HGB Conc 34.5 g/dL Normal 32.5-35.6 [facility] Comment on above: Performed By: #### C BC, BMP #### [address] Monocytes (Bld) [#/Vol] 0.3 10*3/uL Normal 0.0-0.8 [facility] Comment on above: Performed By: #### C BC, BMP #### [address] Monocytes/100 WBC (Bld) 6.8 % Normal . [facility] Comment on above: Performed By: #### C BC, BMP #### [address] Neutrophils (Bld) [#/Vol] 3.3 10*3/uL Normal 1.8-7.7 [facility] Comment on above: Performed By: #### C BC, BMP #### [address] Neutrophils/100 WBC (Bld) 64.9 % Normal . [facility] Comment on above: Performed By: #### C BC, BMP #### [facility] [address] NRBC% 0.1 /100{WBC} Normal 0-0.5 [facility] Comment on above: Performed By: #### C BC, BMP #### [facility] [address] Platelet mean volume (Bld) [Entitic vol] 7.9 fL Normal 6.6-10.1 [facility] Comment on above: Performed By: #### C BC, BMP #### [facility] [address] Platelets (Bld) [#/Vol] 203 10*3/uL Normal 150-450 [facility] Comment on above: Performed By: #### C JAQUELIN, BMP #### [facility] [address] RBC (Bld) [#/Vol] 4.23 10*6/uL Normal 3.90-5.60 [facility] Comment on above: Performed By: #### C JAQUELIN, BMP #### [facility] [address] WBC (Bld) [#/Vol] 5.1 10*3/uL Normal 4.1-10.5 [facility] Comment on above: Performed By: #### C JAQUELIN, BMP #### [facility] [address] Creatinine [Mass/volume] in Serum or PlasmaOrdered By: Willie Ross on 02-10-2023 Creatinine [Mass/Vol] 1.19 mg/dL 0.70-1.30 [facility] Eosinophils Auto (Bld) [#/Vo l]Ordered By: Willie Ross on 02-10-2023 Eosinophils (Bld) [#/Vol] 0.2 10*3/uL 0.0-0.45 [facility] Eosinophils/100 WBC Auto (Bl d)Ordered By: Willie Ross on 02-10-2023 Eosinophils/100 WBC (Bld) 3.7 % . [facility] Erythrocyte distribution wid th Auto (RBC) [Ratio]Ordered By: Willie Ross on 02-10-2023 Erythrocyte distribution width (RBC) [Ratio] 14.4 % 12.0-14.8 [facility] Glucose [Mass/volume] in Ser um or PlasmaOrdered By: Willie Ross on 02-10-2023 Glucose [Mass/Vol] 93 mg/dL 70-100 [facility] Comment on above: ADA recommended refe rence rangeRandom Glucose Reference Range is dependent on time and content of last meal. Glucose of more than 200 mg/dL in a nonstressed, ambulatory subject supports the diagnosis of Diabetes Mellitus. Hematocrit Auto (Bld) [Volum e fraction]Ordered By: Willie Ross on 02-10-2023 Hematocrit (Bld) [Volume fraction] 37.2 % 38.8-50.0 [facility] Hemoglobin [Mass/volume] in BloodOrdered By: Willie Ross on 02-10-2023 Hemoglobin (Bld) [Mass/Vol] 12.8 g/dL 13.0-17.0 [facility] Leukocytes [#/volume] correc aster for nucleated erythrocytes in Blood by Automated counOrdered By: Willie Ross on 02-10-2023 WBC corrected for nucl RBC Auto (Bld) [#/Vol] 5.1 10*3/uL 4.1-10.5 [facility] Lymphocytes Auto (Bld) [#/Vo l]Ordered By: Willie Ross on 02-10-2023 Lymphocytes (Bld) [#/Vol] 1.2 10*3/uL 1.00-4.8 [facility] Lymphocytes/100 WBC Auto (Bl d)Ordered By: Willie Ross on 02-10-2023 Lymphocytes/100 WBC (Bld) 23.4 % . [facility] MCH Auto (RBC) [Entitic mass ]Ordered By: Willie Ross on 02-10-2023 MCH (RBC) [Entitic mass] 30.3 pg 27.5-35.2 [facility] MCHC Auto (RBC) [Mass/Vol]Or dered By: Willie Ross on 02-10-2023 MCHC (RBC) [Mass/Vol] 34.5 g/dL 32.5-35.6 [facility] MCV Auto (RBC) [Entitic vol] Ordered By: Willie Ross on 02-10-2023 MCV (RBC) [Entitic vol] 87.9 fL 83.5-101 [facility] Monocytes Auto (Bld) [#/Vol] Ordered By: Willie Ross on 02-10-2023 Monocytes (Bld) [#/Vol] 0.3 10*3/uL 0.0-0.8 [facility] Monocytes/100 WBC Auto (Bld) Ordered By: Willie Ross on 02-10-2023 Monocytes/100 WBC (Bld) 6.8 % . [facility] Neutrophils Auto (Bld) [#/Vo l]Ordered By: Willie Ross on 02-10-2023 Neutrophils (Bld) [#/Vol] 3.3 10*3/uL 1.8-7.7 [facility] Neutrophils/100 WBC Auto (Bl d)Ordered By: Willie Ross on 02-10-2023 Neutrophils/100 WBC (Bld) 64.9 % . [facility] No Panel InformationOrdered By: Willie Ross on 02-10-2023 Estimated GFR (CKD-EPI) > 60.0 mL/Min [facility] Creatinine Clearance (Chem N/A [place] [facility] Nucleated erythrocytes [Pres ence] in Blood by Automated countOrdered By: Willie Ross on 02-10-2023 Nucleated RBC Auto Ql (Bld) 0.1 /100{WBC} 0-0.5 [facility] Platelet mean volume Auto (B ld) [Entitic vol]Ordered By: Willie Ross on 02-10-2023 Platelet mean volume (Bld) [Entitic vol] 7.9 fL 6.6-10.1 [facility] Platelets Auto (Bld) [#/Vol] Ordered By: Willie Ross on 02-10-2023 Platelets (Bld) [#/Vol] 203 10*3/uL 150-450 [facility] Potassium [Moles/volume] in Serum or PlasmaOrdered By: Willie Ross on 02-10-2023 Potassium [Moles/Vol] 4.2 mmol/L 3.5-5.1 [facility] RBC Auto (Bld) [#/Vol]Ordere d By: Willie Ross on 02-10-2023 RBC (Bld) [#/Vol] 4.23 10*6/uL 3.90-5.60 [facility] Serum or plasma anion gap de terminationOrdered By: Willie Ross on 02-10-2023 Anion gap [Moles/Vol] 8.9 mmol/L 6.0-15.0 [facility] Sodium [Moles/volume] in Ser um or PlasmaOrdered By: Willie Ross on 02-10-2023 Sodium [Moles/Vol] 138 mmol/L 136-145 [facility] Urea nitrogen [Mass/volume] in Serum or PlasmaOrdered By: Willie Ross on 02-10-2023 Urea nitrogen [Mass/Vol] 21 mg/dL 7-25 [facility] WBC Auto (Bld) [#/Vol]Ordere d By: Willie Ross on 02-10-2023 WBC (Bld) [#/Vol] 5.1 10*3/uL 4.1-10.5 [facility] RESPIRATORY PANEL PLUSon Adenovirus Not detected Normal NOT DETECTED [facility] Comment on above: Performed By: #### P OCGLUC #### [facility] [address] [place] [address] Dr. Saskia Arzate Parapertusis Not detected Normal NOT DETECTED [facility] Comment on above: Performed By: #### P OCGLUC #### [facility] [address] [place] [address] Dr. Saskia Arzate Pertussis Not detected Normal NOT DETECTED [facility] Comment on above: Performed By: #### P OCGLUC #### [facility] [address] [address] [address] Saskia Lai Chlamydia Pneumoniae Not detected Normal NOT DETECTED [facility] Comment on above: Performed By: #### P OCGLUC #### [facility] [address] [place] [address] Dr. Saskia Lai Coronavirus 229E Not detected Normal NOT DETECTED [facility] Comment on above: Performed By: #### P OCGLUC #### [facility] [address] [place] [address] Dr. Saskia Lai Coronavirus HKU1 Not detected Normal NOT DETECTED [facility] Comment on above: Performed By: #### P OCGLUC #### [facility] [address] [place] [address] Dr. Saskia Lai Coronavirus NL63 Not detected Normal NOT DETECTED [facility] Comment on above: Performed By: #### P OCGLUC #### [facility] [address] [place] [address] Dr. Saskia Lai Coronavirus OC43 Not detected Normal NOT DETECTED [facility] Comment on above: Performed By: #### P OCGLUC #### [facility] [address] [place] [address] Dr. Saskia Lai Influenza A H1 Not detected Normal NOT DETECTED [facility] Comment on above: Performed By: #### P OCGLUC #### [facility] [address] [place] [address] Dr. Saskia Lai Influenza A H1 2009 Not detected Normal NOT DETECTED [facility] Comment on above: Performed By: #### P OCGLUC #### [facility] [address] [place] [address] Dr. Saskia Lai Influenza A H3 Not detected Normal NOT DETECTED [facility] Comment on above: Performed By: #### P OCGLUC #### [facility] [address] [place] [address] Dr. Saskia Lai Influenza B Not detected Normal NOT DETECTED [facility] Comment on above: Performed By: #### P OCGLUC #### [facility] [address] [place] [address] Dr. Saskia Lai Metapneumovirus Detected Abnormal NOT DETECTED [facility] Comment on above: Performed By: #### P OCGLUC #### [facility] [address] [place] [address] Dr. Saskia Lai Mycoplas. Pneumoniae Not detected Normal NOT DETECTED [facility] Comment on above: Performed By: #### P OCGLUC #### [facility] [address] [place] [address] Dr. Saskia Lai Parainfluenza 1 Not detected Normal NOT DETECTED [facility] Comment on above: Performed By: #### P OCGLUC #### [facility] [address] [place] [address] Dr. Saskia Lai Parainfluenza 2 Not detected Normal NOT DETECTED [facility] Comment on above: Performed By: #### P OCGLUC #### [facility] [address] [place] [address] Dr. Saskia Lai Parainfluenza 3 Not detected Normal NOT DETECTED [facility] Comment on above: Performed By: #### P OCGLUC #### [facility] [address] [place] [address] Dr. Saskia Lai Parainfluenza 4 Not detected Normal NOT DETECTED [facility] Comment on above: Performed By: #### P OCGLUC #### [facility] [address] [place] [address] Dr. Saskia Lai Rhino/Enterovirus Not detected Normal NOT DETECTED [facility] Comment on above: Performed By: #### P OCGLUC #### [facility] [address] [place] [address] Dr. Saskia Lai RP2 Header 1 RESPIRATORY PANEL: VIRUSES Normal [facility] Comment on above: Performed By: #### P OCGLUC #### [facility] [address] [place] [address] Dr. Saskia Lai RP2 Header 2 RESPIRATORY PANEL: BACTERIA Normal [facility] Comment on above: Performed By: #### P OCGLUC #### [facility] [address] [place] [address] Dr. Saskia Lai RSV Not detected Normal NOT DETECTED [facility] Comment on above: Performed By: #### P OCGLUC #### [facility] [address] [place] [address] Dr. Saskia Lai SARS-CoV-2 (COVID-19) RNA TOSHA+probe Ql (Unsp spec) Not detected Normal NOT DETECTED [facility] Comment on above: Performed By: #### P OCGLUC #### [facility] [address] [place] [address] Dr. Saskia Lai CBC AUTO DIFFon 01-08-2022 BASO # 0.0 103/ul Normal 0.0-0.1 [facility] Comment on above: Performed By: #### C BC #### [facility] [address] [address] [address] Saskia Lai Basophils/100 WBC (Bld) 0.2 % Normal 0.2-2.[address] [facility] Comment on above: Performed By: #### C BC #### [facility] [address] [place] [address] Dr. Saskia Lai EO # 0.1 103/ul Normal 0.0-0.[address] [facility] Comment on above: Performed By: #### C BC #### [facility] [address] [place] [address] Dr. Saskia Lai Eosinophils/100 WBC (Bld) 0.8 % Critically low 0.9-7.[address] [facility] Comment on above: Performed By: #### C BC #### [facility] [address] [place] [address] Dr. Saskia Lai Erythrocyte distribution width (RBC) [Ratio] 14.6 % Normal 11.0-15.[address] [facility] Comment on above: Performed By: #### C BC #### [facility] [address] [place] [address] Dr. Saskia Lai Hematocrit (Bld) [Volume fraction] 32.5 % Critically low 42.0-54.[address] [facility] Comment on above: Performed By: #### C BC #### [facility] [address] [place] [address] Dr. Saskia Lai Hemoglobin (Bld) [Mass/Vol] 10.8 g/dL Critically low 14.0-18.[address] [facility] Comment on above: Performed By: #### C BC #### [facility] [address] [place] [address] Dr. Saskia Lai IG # 0.02 10e3/ul Normal 0.00-0.[address] [facility] Comment on above: Performed By: #### C BC #### [facility] [address] [place] [address] Dr. Saskia Lai IG % 0.2 % Normal 0.0-0.[address] [facility] Comment on above: Performed By: #### C BC #### [facility] [address] [place] [address] Dr. Saskia Lai LYMPH # 1.2 103/ul Normal 1.2-3.[address] [facility] Comment on above: Performed By: #### C BC #### [facility] [address] [place] [address] Dr. Saskia Lai Lymphocytes/100 WBC (Bld) 12.3 % Critically low 20.5-60.[address] [facility] Comment on above: Performed By: #### C BC #### [facility] [address] [place] [address] Dr. Saskia Lai MANUAL DIFF REQ NO Normal [facility] Comment on above: Performed By: #### C BC #### [facility] [address] [place] [address] Dr. Saskia Lai MCH (RBC) [Entitic mass] 29.8 pg Normal 25.9-34.[address] [facility] Comment on above: Performed By: #### C BC #### [facility] [address] [place] [address] Dr. Saskia Lai MCHC (RBC) [Mass/Vol] 33.2 g/dL Normal 29.9-35.[address] [facility] Comment on above: Performed By: #### C BC #### [facility] [address] [place] [address] Dr. Saskia Lai MCV (RBC) [Entitic vol] 89.8 fL Normal 80.0-94.[address] [facility] Comment on above: Performed By: #### C BC #### [facility] [address] [place] [address] Dr. Saskia Lai MONO # 0.7 103/ul Normal 0.3-0.[address] [facility] Comment on above: Performed By: #### C BC #### [facility] [address] [place] [address] Dr. Saskia Lai Monocytes/100 WBC (Bld) 7.1 % Normal 1.7-12.[address] [facility] Comment on above: Performed By: #### C BC #### [facility] [address] [place] [address] Dr. Saskia Lai NEUT # 7.6 103/ul Critically high 1.4-6.[address] [facility] Comment on above: Performed By: #### C BC #### [facility] [address] [place] [address] Dr. Saskia Lai Neutrophils/100 WBC (Bld) 79.4 % Critically high 43.0-75.[address] [facility] Comment on above: Performed By: #### C BC #### [facility] [address] [place] [address] Dr. Saskia Lai Platelet mean volume (Bld) [Entitic vol] 10.5 fL Normal 9.5-13.[address] [facility] Comment on above: Performed By: #### C BC #### [facility] [address] [place] [address] Dr. Saskia Lai PLT 172 103/ul Normal 150-450 [facility] Comment on above: Performed By: #### C BC #### [facility] [address] [place] [address] Dr. Saskia Lai RBC 3.62 106/ul Critically low 4.70-6.10 [facility] Comment on above: Performed By: #### C BC #### [facility] [address] [place] [address] Dr. Saskia Lai WBC 9.6 103/ul Normal 4.0-11.0 [facility] Comment on above: Performed By: #### C BC #### [facility] [address] [place] [address] Dr. Saskia Lai [facility] SARS-CoV-2 (COVID-19) RNA TOSHA+probe Ql (Unsp spec) Not detected Normal NOT DETECTED [facility] Comment on above: Result Comment: When diagnostic [...] for this test is supported by the [place] of [employer] and Human Service's declaration that [...] used). Performed By: #### C VDTBH #### [facility] [address] [place] [address] Dr. Saskia Lai PROF CHEM 8 (BAS METB)on Anion gap [Moles/Vol] 10.6 mmol/L Normal [facility] Comment on above: Performed By: #### C VDTBH #### [facility] [address] [place] [address] Dr. Saskia Lai Calcium [Mass/Vol] 8.8 mg/dL Normal 8.5-10.[address] [facility] Comment on above: Performed By: #### C VDTBH #### [facility] [address] [place] [address] Dr. Saskia Lai Chloride [Moles/Vol] 104 mmol/L Normal 98-[address] [facility] Comment on above: Performed By: #### C VDTBH #### [facility] [address] [place] [address] Dr. Saskia Lai CO2 [Moles/Vol] 26.8 mmol/L Normal 21.0-32.[address] [facility] Comment on above: Performed By: #### C VDTBH #### [facility] [address] [place] [address] Dr. Saskia Lai Creatinine [Mass/Vol] 1.18 mg/dL Normal 0.70-1.[address] [facility] Comment on above: Performed By: #### C VDTBH #### [facility] [address] [place] [address] Dr. Saskia Lai EGFR-AF GHANAIAN >60 Normal >=60 [facility] Comment on above: Performed By: #### C VDTBH #### [facility] [address] [address] [address] Saskia Lai EGFR-NON AF GHANAIAN 60 mL/min/1.73m2 Normal >=[address] [facility] Comment on above: Performed By: #### C VDTBH #### [facility] [address] [address] [address] Saskia Lai Glucose [Mass/Vol] 102 mg/dL Normal 74-106 [facility] Comment on above: Performed By: #### C VDTBH #### [facility] [address] [place] [address] Dr. Saskia Lai Potassium [Moles/Vol] 4.4 mmol/L Normal 3.5-5.[address] [facility] Comment on above: Performed By: #### C VDTBH #### [facility] [address] [place] [address] Dr. Saskia Lai Sodium [Moles/Vol] 137 mmol/L Normal 136-145 [facility] Comment on above: Performed By: #### C VDTBH #### [facility] [address] [place] [address] Dr. Saskia Lai Urea nitrogen [Mass/Vol] 32.0 mg/dL Critically high 7.0-18.[address] [facility] Comment on above: Performed By: #### C VDTBH #### [facility] [address] [place] [address] Dr. Saskia Lai Urea nitrogen/Creatinine [Mass ratio] 27.1 mg/mg Normal [facility] Comment on above: Performed By: #### C VDTBH #### [facility] [address] [place] [address] Dr. Saskia Lai PROTIMEon 01-08-2022 INR Coag (PPP) [Relative time] 1.28 {INR} Normal [facility] Comment on above: Performed By: #### C VDTBH #### [facility] [address] [place] [address] Dr. Saskia Lai INR GUIDELINES SEE BELOW Normal [facility] Comment on above: Result Comment: GABI RED INR: 2.0 - 3.0 CONDITIONS NOT LISTED BELOW 2.5 - 3.5 FOR PROSTHETIC HEART VALVE REPLACEMENT 2.5 - 3.5 RECURRENT THROMBOSIS Performed By: #### C VDTBH #### [facility] [address] [place] [address] Dr. Saskia Lai PT Coag (PPP) [Time] 13.6 s Critically high 9.0-11.[address] [facility] Comment on above: Performed By: #### C VDTBH #### [facility] [address] [place] [address] Dr. Saskia Lai CBC AUTO DIFFon 01-07-2022 BASO # 0.0 103/ul Normal 0.0-0.[address] [facility] Comment on above: Performed By: #### P OCGLUC #### [facility] [address] [place] [address] Dr. Saskia Lai Basophils/100 WBC (Bld) 0.1 % Critically low 0.2-2.[address] [facility] Comment on above: Performed By: #### P OCGLUC #### [facility] [address] [place] [address] Dr. Saskia Lai EO # 0.0 103/ul Normal 0.0-0.[address] [facility] Comment on above: Performed By: #### P OCGLUC #### [facility] [address] [place] [address] Dr. Saskia Lai Eosinophils/100 WBC (Bld) 0.0 % Critically low 0.9-7.[address] [facility] Comment on above: Performed By: #### P OCGLUC #### [facility] [address] [place] [address] Dr. Saskia Lai Erythrocyte distribution width (RBC) [Ratio] 14.5 % Normal 11.0-15.[address] [facility] Comment on above: Performed By: #### P OCGLUC #### [facility] [address] [place] [address] Dr. Saskia Lai Hematocrit (Bld) [Volume fraction] 34.4 % Critically low 42.0-54.[address] [facility] Comment on above: Performed By: #### P OCGLUC #### [facility] [address] [place] [address] Dr. Saskia Lai Hemoglobin (Bld) [Mass/Vol] 11.6 g/dL Critically low 14.0-18.[address] [facility] Comment on above: Performed By: #### P OCGLUC #### [facility] [address] [place] [address] Dr. Saskia Lai IG # 0.05 10e3/ul Critically high 0.00-0.[address] [facility] Comment on above: Performed By: #### P OCGLUC #### [facility] [address] [place] [address] Dr. Saskia Lai IG % 0.3 % Normal 0.0-0.[address] [facility] Comment on above: Performed By: #### P OCGLUC #### [facility] [address] [place] [address] Dr. Saskia Lai LYMPH # 0.9 103/ul Critically low 1.2-3.[address] [facility] Comment on above: Performed By: #### P OCGLUC #### [facility] [address] [place] [address] Dr. Saskia Lai Lymphocytes/100 WBC (Bld) 6.2 % Critically low 20.5-60.[address] [facility] Comment on above: Performed By: #### P OCGLUC #### [facility] [address] [place] [address] Dr. Saskia Lai MANUAL DIFF REQ NO Normal [facility] Comment on above: Performed By: #### P OCGLUC #### [facility] [address] [place] [address] Dr. Saskia Lai MCH (RBC) [Entitic mass] 29.7 pg Normal 25.9-34.[address] [facility] Comment on above: Performed By: #### P OCGLUC #### [facility] [address] [place] [address] Dr. Saskia Lai MCHC (RBC) [Mass/Vol] 33.7 g/dL Normal 29.9-35.[address] [facility] Comment on above: Performed By: #### P OCGLUC #### [facility] [address] [place] [address] Dr. Saskia Lai MCV (RBC) [Entitic vol] 88.0 fL Normal 80.0-94.[address] [facility] Comment on above: Performed By: #### P OCGLUC #### [facility] [address] [place] [address] Dr. Saskia Lai MONO # 1.0 103/ul Critically high 0.3-0.[address] [facility] Comment on above: Performed By: #### P OCGLUC #### [facility] [address] [place] [address] Dr. Saskia Lai Monocytes/100 WBC (Bld) 6.5 % Normal 1.7-12.[address] [facility] Comment on above: Performed By: #### P OCGLUC #### [facility] [address] [place] [address] Dr. Saskia Lai NEUT # 12.9 103/ul Critically high 1.4-6.[address] [facility] Comment on above: Performed By: #### P OCGLUC #### [facility] [address] [place] [address] Dr. Saskia Lai Neutrophils/100 WBC (Bld) 86.9 % Critically high 43.0-75.[address] [facility] Comment on above: Performed By: #### P OCGLUC #### [facility] [address] [place] [address] Dr. Saskia Lai Platelet mean volume (Bld) [Entitic vol] 10.3 fL Normal 9.5-13.5 [facility] Comment on above: Performed By: #### P OCGLUC #### [facility] [address] [place] [address] Dr. Saskia Lai PLT 208 103/ul Normal 150-450 [facility] Comment on above: Performed By: #### P OCGLUC #### [facility] [address] [place] [address] Dr. Saskia Lai RBC 3.91 106/ul Critically low 4.70-6.[address] [facility] Comment on above: Performed By: #### P OCGLUC #### [facility] [address] [place] [address] Dr. Saskia Lai WBC 14.9 103/ul Critically high 4.0-11.[address] [facility] Comment on above: Performed By: #### P OCGLUC #### [facility] [address] [place] [address] Dr. Saskia Lai PROF CHEM 8 (BAS METB)on Anion gap [Moles/Vol] 10.7 mmol/L Normal [facility] Comment on above: Performed By: #### B MP #### [facility] [address] [place] [address] Dr. Saskia Lai Calcium [Mass/Vol] 8.9 mg/dL Normal 8.5-10.[address] [facility] Comment on above: Performed By: #### B MP #### [facility] [address] [place] [address] Dr. Saskia Lai Chloride [Moles/Vol] 101 mmol/L Normal 98-[address] [facility] Comment on above: Performed By: #### B MP #### [facility] [address] [place] [address] Dr. Saskia Lai CO2 [Moles/Vol] 27.9 mmol/L Normal 21.0-32.[address] [facility] Comment on above: Performed By: #### B MP #### [facility] [address] [place] [address] Dr. Saskia aLi Creatinine [Mass/Vol] 1.17 mg/dL Normal 0.70-1.30 [facility] Comment on above: Performed By: #### B MP #### [facility] [address] [place] [address] Dr. Saskia Lai EGFR-AF GHANAIAN >60 Normal >=[address] [facility] Comment on above: Performed By: #### B MP #### [facility] [address] [place] [address] Dr. Saskia Lai EGFR-NON AF GHANAIAN >60 Normal >=[address] [facility] Comment on above: Performed By: #### B MP #### [facility] [address] [address] [address] Saskia Lai Glucose [Mass/Vol] 121 mg/dL Critically high 74-106 [facility] Comment on above: Performed By: #### B MP #### [facility] [address] [address] [address] Saskia Lai Potassium [Moles/Vol] 4.5 mmol/L Normal 3.5-5.[address] [facility] Comment on above: Performed By: #### B MP #### [facility] [address] [address] [address] Saskia Lai Sodium [Moles/Vol] 135 mmol/L Critically low 136-145 [facility] Comment on above: Performed By: #### B MP #### [facility] [address] [address] [address] Saskia Lai Urea nitrogen [Mass/Vol] 30.0 mg/dL Critically high 7.0-18.[address] [facility] Comment on above: Performed By: #### B MP #### [facility] [address] [address] [address] Saskia Lai Urea nitrogen/Creatinine [Mass ratio] 25.6 mg/mg Normal [facility] Comment on above: Performed By: #### B MP #### [facility] [address] [address] [address] Saskia Lai PROTIMEon 01-07-2022 INR Coag (PPP) [Relative time] 1.21 {INR} Normal [facility] Comment on above: Performed By: #### P T #### [facility] [address] [address] [address] Saskia Lai INR GUIDELINES SEE BELOW Normal [facility] Comment on above: Result Comment: GABI RED INR: 2.0 - 3.0 CONDITIONS NOT LISTED BELOW 2.5 - 3.5 FOR PROSTHETIC HEART VALVE REPLACEMENT 2.5 - 3.5 RECURRENT THROMBOSIS Performed By: #### P T #### [facility] [address] [address] [address] Saskia Lai PT Coag (PPP) [Time] 12.9 s Critically high 9.0-11.[address] [facility] Comment on above: Performed By: #### P T #### [facility] [address] [place] [address] Dr. Saskia Lai POINT OF CARE GLUCOSEon 10-3 Glucose [Mass/Vol] 114 mg/dL Critically high 74-106 [facility] Comment on above: Performed By: #### P OCGLUC #### [facility] [address] [place] [address] Dr. Saskia Lai Glucose [Mass/Vol] 104 mg/dL Normal 74-[address] [facility] Comment on above: Performed By: #### P OCGLUC #### [facility] [address] [place] [address] Dr. Saskia Lai PROTIMEon 01-06-2022 INR Coag (PPP) [Relative time] 1.19 {INR} Normal [facility] Comment on above: Performed By: #### P T #### [facility] [address] [place] [address] Dr. Saskia Lai INR GUIDELINES SEE BELOW Normal [facility] Comment on above: Result Comment: GABI RED INR: 2.0 - 3.0 CONDITIONS NOT LISTED BELOW 2.5 - 3.5 FOR PROSTHETIC HEART VALVE REPLACEMENT 2.5 - 3.5 RECURRENT THROMBOSIS Performed By: #### P T #### [facility] [address] [place] [address] Dr. Saskia Lai PT Coag (PPP) [Time] 12.7 s Critically high 9.0-11.[address] [facility] Comment on above: Performed By: #### P T #### [facility] [address] [place] [address] Dr. Saskia Lai Covid-19 PCR ([facility])on 12-08 SARS-CoV-2 (COVID-19) RNA TOSHA+probe Ql (Unsp spec) Not detected Normal NOT DETECTED [facility] Comment on above: Result Comment: This test is not yet approved or cleared by the [place] FDA. When there are no FDA-approved or cleared tests available, and other criteria are met, FDA can make tests available under an emergency access mechanism called an Emergency Use Authorization (EUA). The EUA for this test is supported by the Patient Relations Coordinator of Health and Human Service's (HHS's) declaration [...] consistent with SARS-CoV-2. Performed By: #### C VDTB #### [facility] [address] [place] [address] Dr. Saskia Lai CBC AUTO DIFFon 12-24-2021 BASO # 0.1 103/ul Normal 0.0-0.[address] [facility] Comment on above: Performed By: #### C VDTBH #### [facility] [address] [place] [address] Dr. Saskia Lai Basophils/100 WBC (Bld) 1.2 % Normal 0.2-2.[address] [facility] Comment on above: Performed By: #### C VDTBH #### [facility] [address] [place] [address] Dr. Saskia Lai EO # 0.2 103/ul Normal 0.0-0.7 [facility] Comment on above: Performed By: #### C VDTBH #### [facility] [address] [place] [address] Dr. Saskia Lai Eosinophils/100 WBC (Bld) 2.8 % Normal 0.9-7.0 [facility] Comment on above: Performed By: #### C VDTBH #### [facility] [address] [place] [address] Dr. Saskia Lai Erythrocyte distribution width (RBC) [Ratio] 14.4 % Normal 11.0-15.0 [facility] Comment on above: Performed By: #### C VDTBH #### [facility] [address] [place] [address] Dr. Saskia Lai Hematocrit (Bld) [Volume fraction] 40.5 % Critically low 42.0-54.[address] [facility] Comment on above: Performed By: #### C VDTBH #### [facility] [address] [place] [address] Dr. Saskia Lai Hemoglobin (Bld) [Mass/Vol] 13.4 g/dL Critically low 14.0-18.[address] [facility] Comment on above: Performed By: #### C VDTBH #### [facility] [address] [place] [address] Dr. Saskia Lai IG # 0.00 10e3/ul Normal 0.00-0.[address] [facility] Comment on above: Performed By: #### C VDTBH #### [facility] [address] [place] [address] Dr. Saskia Lai IG % 0.0 % Normal 0.0-0.[address] [facility] Comment on above: Performed By: #### C VDTBH #### [facility] [address] [place] [address] Dr. Saskia Lai LYMPH # 1.1 103/ul Critically low 1.2-3.[address] [facility] Comment on above: Performed By: #### C VDTBH #### [facility] [address] [place] [address] Dr. Saskia Lai Lymphocytes/100 WBC (Bld) 19.5 % Critically low 20.5-60.[address] [facility] Comment on above: Performed By: #### C VDTBH #### [facility] [address] [place] [address] Dr. Saskia Lai MANUAL DIFF REQ NO Normal [facility] Comment on above: Performed By: #### C VDTBH #### [facility] [address] [place] [address] Dr. Saskia Lai MCH (RBC) [Entitic mass] 29.6 pg Normal 25.9-34.0 [facility] Comment on above: Performed By: #### C VDTBH #### [facility] [address] [place] [address] Dr. Saskia Lai MCHC (RBC) [Mass/Vol] 33.1 g/dL Normal 29.9-35.[address] [facility] Comment on above: Performed By: #### C VDTBH #### [facility] [address] [place] [address] Dr. Saskia Lai MCV (RBC) [Entitic vol] 89.4 fL Normal 80.0-94.[address] [facility] Comment on above: Performed By: #### C VDTBH #### [facility] [address] [place] [address] Dr. Saskia Lai MONO # 0.4 103/ul Normal 0.3-0.[address] [facility] Comment on above: Performed By: #### C VDTBH #### [facility] [address] [place] [address] Dr. Saskia Lai Monocytes/100 WBC (Bld) 6.7 % Normal 1.7-12.[address] [facility] Comment on above: Performed By: #### C VDTBH #### [facility] [address] [place] [address] Dr. Saskia Lai NEUT # 4.0 103/ul Normal 1.4-6.5 [facility] Comment on above: Performed By: #### C VDTBH #### [facility] [address] [place] [address] Dr. Saskia Lai Neutrophils/100 WBC (Bld) 69.8 % Normal 43.0-75.0 [facility] Comment on above: Performed By: #### C VDTBH #### [facility] [address] [place] [address] Dr. Saskia Lai Platelet mean volume (Bld) [Entitic vol] 9.9 fL Normal 9.5-13.5 [facility] Comment on above: Performed By: #### C VDTBH #### [facility] [address] [place] [address] Dr. Saskia Lai PLT 228 103/ul Normal 150-[address] [facility] Comment on above: Performed By: #### C VDTBH #### [facility] [address] [place] [address] Dr. Saskia Lai RBC 4.53 106/ul Critically low 4.70-6.[address] [facility] Comment on above: Performed By: #### C VDTBH #### [facility] [address] [place] [address] Dr. Saskia Lai WBC 5.7 103/ul Normal 4.0-11.[address] [facility] Comment on above: Performed By: #### C VDTBH #### [facility] [address] [place] [address] Dr. Saskia Lai PROF CHEM 8 (BAS METB)on Anion gap [Moles/Vol] 11.0 mmol/L Normal [facility] Comment on above: Performed By: #### P OCGLUC #### [facility] [address] [place] [address] Dr. Saskia Lai Calcium [Mass/Vol] 9.3 mg/dL Normal 8.5-10.[address] [facility] Comment on above: Performed By: #### P OCGLUC #### [facility] [address] [place] [address] Dr. Saskia Lai Chloride [Moles/Vol] 102 mmol/L Normal 98-[address] [facility] Comment on above: Performed By: #### P OCGLUC #### [facility] [address] [place] [address] Dr. Saskia Lai CO2 [Moles/Vol] 29.5 mmol/L Normal 21.0-32.0 [facility] Comment on above: Performed By: #### P OCGLUC #### [facility] [address] [place] [address] Dr. Saskia Lai Creatinine [Mass/Vol] 0.93 mg/dL Normal 0.70-1.[address] [facility] Comment on above: Performed By: #### P OCGLUC #### [facility] [address] [place] [address] Dr. Saskia Lai EGFR-AF GHANAIAN >60 Normal >=[address] [facility] Comment on above: Performed By: #### P OCGLUC #### [facility] [address] [address] [address] Saskia Lai EGFR-NON AF GHANAIAN >60 Normal >=[address] [facility] Comment on above: Performed By: #### P OCGLUC #### [facility] [address] [address] [address] Saskia Lai Glucose [Mass/Vol] 97 mg/dL Normal 74-[address] [facility] Comment on above: Performed By: #### P OCGLUC #### [facility] [address] [address] [address] Saskia Lai Potassium [Moles/Vol] 4.5 mmol/L Normal 3.5-5.[address] [facility] Comment on above: Performed By: #### P OCGLUC #### [facility] [address] [address] [address] Saskia Lai Sodium [Moles/Vol] 138 mmol/L Normal 136-[address] [facility] Comment on above: Performed By: #### P OCGLUC #### [facility] [address] [address] [address] Saskia Lai Urea nitrogen [Mass/Vol] 15.0 mg/dL Normal 7.0-18.[address] [facility] Comment on above: Performed By: #### P OCGLUC #### [facility] [address] [address] [address] Saskia Lai Urea nitrogen/Creatinine [Mass ratio] 16.1 mg/mg Normal [facility] Comment on above: Performed By: #### P OCGLUC #### [facility] [address] [address] [address] Saskia Lai PROTIMEon 12-24-2021 INR Coag (PPP) [Relative time] 2.00 {INR} Normal [facility] Comment on above: Performed By: #### P T, PTT #### [facility] [address] [address] [address] Saskia Lai INR GUIDELINES SEE BELOW Normal [facility] Comment on above: Result Comment: GABI RED INR: 2.0 - 3.0 CONDITIONS NOT LISTED BELOW 2.5 - 3.5 FOR PROSTHETIC HEART VALVE REPLACEMENT 2.5 - 3.5 RECURRENT THROMBOSIS Performed By: #### P T, PTT #### [facility] [address] [place], [place] [address] Dr. Saskia Lai PT Coag (PPP) [Time] 20.6 s Critically high 9.0-11.6 [facility] Comment on above: Performed By: #### P T, PTT #### [facility] [address] [place], [place] [address] Dr. Saskia Lai PTTon 12-24-2021 aPTT Coag (Bld) [Time] 33.5 s Normal 22.3-36.2 [facility] Comment on above: Performed By: #### P T, PTT #### [facility] [address] [place], [place] [address] CHEST W CONon [...] GERARDO AUGUSTIN Date: 2021-10-23 17:42 Normal [facility] PROF CHEM 8 (BAS METB)on Anion gap [Moles/Vol] 14.4 mmol/L Normal [facility] Comment on above: Performed By: #### P OCGLUC #### [facility] [address] [address] [address] Saskia Lai Calcium [Mass/Vol] 9.1 mg/dL Normal 8.5-10.1 [facility] Comment on above: Performed By: #### P OCGLUC #### [facility] [address] [address] [address] Saskia Lai Chloride [Moles/Vol] 102 mmol/L Normal 98-[address] [facility] Comment on above: Performed By: #### P OCGLUC #### [facility] [address] [address] [address] Saskia Lai CO2 [Moles/Vol] 25.1 mmol/L Normal 21.0-32.[address] [facility] Comment on above: Performed By: #### P OCGLUC #### [facility] [address] [address] [address] Saskia Lai Creatinine [Mass/Vol] 1.13 mg/dL Normal 0.70-1.[address] [facility] Comment on above: Performed By: #### P OCGLUC #### [facility] [address] [address] [address] Saskia Lai EGFR-AF GHANAIAN >60 Normal >=60 [facility] Comment on above: Performed By: #### P OCGLUC #### [facility] [address] [address] [address] Saskia Lai EGFR-NON AF GHANAIAN >60 Normal >=[address] [facility] Comment on above: Performed By: #### P OCGLUC #### [facility] [address] [address] [address] Saskia Lai Glucose [Mass/Vol] 82 mg/dL Normal 74-106 [facility] Comment on above: Performed By: #### P OCGLUC #### [facility] [address] [address] [address] Saskia Lai Potassium [Moles/Vol] 4.5 mmol/L Normal 3.5-5.[address] [facility] Comment on above: Performed By: #### P OCGLUC #### [facility] [address] [address] [address] Saskia Lai Sodium [Moles/Vol] 137 mmol/L Normal 136-[address] [facility] Comment on above: Performed By: #### P OCGLUC #### [facility] [address] [address] [address] Saskia Lai Urea nitrogen [Mass/Vol] 19.0 mg/dL Critically high 7.0-18.[address] [facility] Comment on above: Performed By: #### P OCGLUC #### [facility] [address] [address] [address] Saskia Lai Urea nitrogen/Creatinine [Mass ratio] 16.8 mg/mg Normal [facility] Comment on above: Performed By: #### P OCGLUC #### [facility] [address] [address] [address] Saskia Hurley 08-12-2021 CARL Office Visit ([facility] ) -- REMI ZARCO ([id number]) 1945 Date Time Provider Department 08/12/21 2:45 PM [...] (HCC) [M87.9] (more content not included)... Normal [facility] 08-01-2021 AVINASH Telephone ([facility]) -- REMI ZARCO ([id number]) 1945 M Date Time Provider Department 08/01/21 DARREL ALMENDAREZ During your visit today, we recorded the following information about you: Abilio Garza Pss 08/01/2021 8:47 AM Signed Pt called, wanted to know if Dr Almendarez or nurse could reach out to further advise of treatment plan. Pt states he was to hear back shortly after visit on 07/10. Abilio [facility] Pss Lin Monge, [place] 08/06/2021 1:59 PM Addendum Called and spoke with patient. He wants to know if surgery is his next step based on his xray images brought to his last visit. Scheduled for an in person follow up Allergies As of Date: 08/01/2021 Noted Allergy Reaction MORPHINE 01/04/2018 14 - Other: See Comments Comments: Makes patient skin hurt Date Reviewed: 07/10/2021 Reviewed by: Darrel Almendarez DPM - Fully Assessed Reason for Visit: Patient Question [9983] Patient Update [4204] Prescriptions as of 08/06/2021 - warfarin (COUMADIN) [...] Encounter Status:Closed by ABILIO BULLARD on 08/01/21 [facility] CNOVon 07-10-2021 CNOV Office Visit (SHEF ) -- REMI ZARCO ([id number]) 1945 M Date Time Provider Department 07/10/21 [...] Referring Pro (more content not included)... Normal [facility] XR ANKLE 3V AP/LAT/OBL LTon 07-10-2021 XR [...] enthesophyte is seen IMPRESSION: Please see result [employer] Consultant: PSCB Transcribe Date/Time: Jul 10 2021 1:13P Dictated by : MIRNA WRIGHT MD This examination was interpreted and the report reviewed and electronically signed by: MIRNA WRIGHT MD on Jul 10 2021 1:14PM EST [id number] Normal [facility] XR ANKLE GENERAL 3V AP/LAT/O BL LEFTon 07-10-2021 [facility] XR FOOT 3V AP/LAT/OBL LTon [...] formation is seen IMPRESSION: Please see result [employer] Consultant: PSCB Transcribe Date/Time: Jul 12 2021 11:11A Dictated by : MIRNA WRIGHT MD This examination was interpreted and the report reviewed and electronically signed by: MIRNA WRIGHT MD on Jul 12 2021 11:12AM EST [id number] Normal [facility] CNOVon 06-14-2021 CNOV Office Visit (CINTIA ) -- REMI ZARCO ([id number]) 1945 M Date Time Provider Department 06/14/21 1:30 PM MANUEL SAUCEDO During your visit today, we recorded the following information about you: Manuel Saucedo DPM 06/14/2021 1:[address] [facility] Department of Orthopedics [facility] Orthopedic Surgery Name: Remi Zarco Date of [...] brought in radiographs and a CT from [place] which demonstrate a valgus tilt of the [...] fix heis shoulder before he left for [place]. Discussed Dr. Torres but he does not want to drive to [facility]. Suggested he see Dr. Almendarez to discuss [...] Diagnoses:Ankle instabilit (more content not included)... Normal [facility] Vital Signs Date Time Vital Sign Value Performing Clinician Facility 02-24-2023 15:43-0500 Diastolic blood pressure 81 mm[Hg] MD Gil Gee Work Phone: [facility] 02-24-2023 15:43-0500 Heart rate 59 /min MD Gil Gee Work Phone: [facility] 02-24-2023 15:43-0500 Respiratory rate 16 /min MD Gil Gee Work Phone: [facility] 02-24-2023 15:43-0500 SaO2% (BldA) [Mass fraction] 95 % MD Gil Gee Work Phone: [facility] 02-24-2023 15:43-0500 Systolic blood pressure 148 mm[Hg] MD Gil Gee Work Phone: [facility] 02-24-2023 14:07-0500 Body temperature 97.3 [degF] MD Gil Gee Work Phone: [facility] 02-24-2023 14:07-0500 Inhaled oxygen flow rate 6 L/min MD Gil Gee Work Phone: [facility] 02-24-2023 12:55-0500 Body height 185.42 cm MD Gil Gee Work Phone: [facility] 02-24-2023 12:55-0500 Body mass index (BMI) [Ratio] 30.7 kg/m2 MD Gil Gee Work Phone: [facility] 02-24-2023 12:55-0500 Body weight 105.5 kg MD Gil Gee Work Phone: [facility] 11-09-2022 12:05-0400 Body height 182.88 cm Yolanda Somers Other Seen Other 11-09-2022 12:05-0400 Body mass index (BMI) [Ratio] 31.08 kg/m2 Yolanda Somers Other Seen Other 11-09-2022 12:05-0400 Body temperature 98.6 [degF] Yolanda Somers Other Seen Other 11-09-2022 12:05-0400 Body weight 103.97 kg Yolanda Somers Other Seen Other 11-09-2022 12:05-0400 Diastolic blood pressure 75 mm[Hg] Yolanda Somers Other Seen Other 11-09-2022 12:05-0400 Respiratory rate 18 /min Yolanda Somers Other Seen Other 11-09-2022 12:05-0400 SaO2% (BldA) [Mass fraction] 97 % Yolanda Somers Other Seen Other 11-09-2022 12:05-0400 Systolic blood pressure 161 mm[Hg] Yolanda Somers Other Seen Other Encounters Encounter Date Encounter Type Care Provider Facility Start: 05-22-2023 End: 05-22-2023 [facility] Start: 05-22-2023 End: 05-22-2023 Follow-up encounter Darrel Rangel MD Work Phone: [facility] Medication Therapy Management Comment on above: Essential hypertensi on (Primary Dx); Persistent atrial fibrillation (CMS-HCC); terminal carman (current) use of anticoagulants Start: 04-06-2023 End: 04-06-2023 ambulatory WILLIE ROSS Not Available Start: 04-03-2023 End: 04-03-2023 [facility] Start: 04-03-2023 End: 04-03-2023 Follow-up encounter Darrel Rangel MD Work Phone: [facility]ication Therapy Management Comment on above: Essential hypertensi on (Primary Dx); Persistent atrial fibrillation (CMS-HCC); terminal carman (current) use of anticoagulants Start: 03-24-2023 End: 03-24-2023 ambulatory PACO MULTANI Not Available Start: 03-11-2023 Telephone encounter Jobskatarina Alvarado ice Work Phone: [facility]ication Therapy Management Start: 03-10-2023 Telephone encounter Davion duke RN [facility] Comment on above: Cardiac Clearance Start: 03-04-2023 End: 03-04-2023 ambulatory WILLIE ROSS Not Available Start: 02-24-2023 End: 02-24-2023 ambulatory Willie Ross Facility:[facility] Start: 02-24-2023 End: 02-24-2023 Admission to same day surgery center MD Gil Gee Work Phone: [facility] [place] Start: 02-24-2023 End: 02-24-2023 ambulatory MD Gil Gee Work Phone: [facility] Work Phone: Start: 02-10-2023 End: 02-10-2023 ambulatory Willie Muellerkris Facility:[facility] Start: 02-10-2023 End: 02-10-2023 ambulatory MD Gil Gee Work Phone: [facility] Work Phone: Start: 02-10-2023 End: 02-10-2023 Patient encounter procedure MD Gil Gee Work Phone: [facility] Work Phone: Start: 02-04-2023 End: 02-04-2023 ambulatory WILLIE ROSS Not Available Start: 11-09-2022 End: 11-09-2022 ambulatory Yolanda Somers Other Seen Other Start: 11-09-2022 Office outpatient ne w 10 minutes Yolanda Lizbet [facility] Start: 07-23-[address] [...] Start: 01-05-2022 Encounter for preprocedural laboratory examination [facility] Start: 01-02-2022 End: 01-03-2022 ambulatory [facility] Al SNOW Facility:H1 Start: 01-02-2022 End: 01-03-2022 Encounter for preprocedural laboratory examination [facility] Al [facility] Facility:[facility] Start: 12-27-2021 Encounter for preprocedural cardiovascular examination [facility] Start: 12-27-2021 Encounter for preprocedural laboratory examination [facility] Start: 12-24-2021 End: 12-25-2021 ambulatory [facility] Al [facility] Facility:[facility] Start: 12-24-2021 End: 12-25-2021 Encounter for preprocedural cardiovascular examination [facility] Al SNOW Facility:[facility] Start: 10-23-2021 End: 10-24-[address] GERARDO AUGUSTIN Facility:[facility] Start: 08-12-2021 End: 08-12-2021 Patient encounter procedure Darrel Almendarez DPM Work Phone: Orthopaedics Comment on above: DJD (degenerative adelaida int disease), ankle and foot, left (Primary Dx); Osteonecrosis (HCC); PTTD (posterior tibial tendon dysfunction); Acquired valgus deformity of left ankle; Difficulty walking; Ankle instability, left; Chronic pain of left ankle Start: 07-10-2021 ambulatory Wanda M Ashanti ocheather RT(R) Radiology Comment on above: Radio Gen RMP Start: 07-10-2021 End: 07-10-2021 Patient encounter procedure Wanda M Oksana RT(R) [facility] Comment on above: DJD (degenerative adelaida int disease), ankle and foot, left (Primary Dx); Acquired valgus deformity of left ankle; PTTD (posterior tibial tendon dysfunction); Difficulty walking Start: 07-10-2021 End: 07-10-2021 Subsequent hospital visit by physician Jonel [facility] Work Phone: Radiology Comment on above: Left ankle pain, uns pecified chronicity [M25.572] Start: 06-14-2021 End: 06-14-2021 Patient encounter procedure Manuel Saucedo DPM Work Phone: Orthopaedics Comment on above: 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 (Primary Dx); Ankle instability, left; Chronic pain of left ankle Start: 07-13-2017 Patient encounter status Davion gonzales RN [email or web address] Procedures Date Procedure Procedure Detail Performing Clinician Start: 05-22-2023 [employer] Work Phone: Start: 04-03-2023 [employer] Work Phone: Start: 02-24-2023 Excision of lesion of cheek [...] malignant neoplasm of colon Colonoscopy [facility] Start: 12-20-2023 Adult BMI Screening Adult BMI Screen ing [facility] Start: 12-20-2023 Tobacco Screening Tobacco Screening [facility] Start: 07-10-2023 End: 07-10-2023 Follow-up encounter 07/10/2023 8:00 AM EDT Follow Up Anticoagulation [facility] Medication Therapy Management [address] [place] [address] Darrel Rangel MD [address] [place] [address] [facility] Medication Therapy Management Start: 05-22-2023 End: 05-22-2023 Follow-up encounter 05/22/2023 8:00 AM EDT Follow Up Anticoagulation [facility] Medication Therapy Management [address] [place] [address] Darrel Rangel MD [address] [place] [address] [facility] Medication Therapy Management Start: 04-03-2023 End: 04-03-2023 Follow-up encounter 04/03/2023 8:00 AM EST Follow Up Anticoagulation [facility] Medication Therapy Management [address] [place] [address] Darrel Rangel MD [address] [place] [address] [facility] Medication Therapy Management Start: 02-24-2023 End: 02-24-2023 [facility] Start: 11-07-2021 Influenza vaccination INFLUENZA (Sea son Ended) [facility] Start: 04-06-2021 DIABETES SCREEN DIABETES SCREEN [facility] Start: 03-09-2021 ADVANCE DIRECTIVE DISCUSSION ADVANCE DIRECTIVE DISCUSSION [facility] Start: 2010 Fall Risk Screening Fall Risk Screen ing [facility] Start: 2010 PNEUMOCOCCAL: 65+ (1 - PCV) PNEUMOCOCCAL: 65+ (1 - PCV) [facility] Start: 2010 PNEUMOVAX AGE 65 AND OVER WITH 5YR LOOKBACK (#1) PNEUMOVAX AGE 65 AND OVER WITH 5YR LOOKBACK (#1) [facility] Start: 06-07-1995 SHINGRIX VACCINE (1 of 2) SHINGRIX VACCINE (1 of 2) [facility] Start: 1964 DTaP,Tdap and Td Vaccines (1 - Tdap) DTaP,Tdap and Td Vaccines (1 - Tdap) [facility] Start: 1964 Urine microalbumin profile DTAP,TDAP,TD (1 - Tdap) [facility] Start: 06-07-1963 Adult BMI Follow Up Plan Adult BMI Follow Up Plan [facility] Start: 06-07-1963 HEPATITIS C SCREENING HEPATITIS C SC REENING [facility] Start: 1957 Adult depression screening assessment DEPRESSION SCREENING [facility] Start: 1945 Medicare Annual Wellness Visit Medicare Annual Wellness Visit [facility] End: 09-11-2022 Mri any jt lower extrem w/o contrast matrl MRI ANKLE WO IVCON LT Radiology Routine Osteonecrosis (HCC) 1 Occurrences starting 08/12/2021 until 09/11/2022 [facility] Work Phone: Comment on above: 1 Occurrences starti ng 08/12/2021 until 09/11/2022 Patient referral [facility] Work Phone: XR FOOT GENERAL 3V AP/LAT/OBL LEFT XR FOOT GENERAL 3V AP/LAT/OBL LEFT Radiology Routine DJD (degenerative joint disease), ankle and foot, left 07/10/2021 1:07 PM EDT [facility] Work Phone: [facility] Immunizations Immunization Date Immunization Notes Care Provider Fa cility 11-29-2021 COVID-19 (Pfizer) Bivalent Booster, Age 12Y+ MD Gil Gee Work Phone: [facility] 07-30-2021 COVID-19 (Pfizer) MD Gil osman Work Phone: [facility] 12-26-2020 COVID-19 (Pfizer) MD Gil osman Work Phone: [facility] 05-21-2020 COVID-19 (Pfizer) MD Gil osman Work Phone: [facility] 04-30-2020 COVID-19 (Pfizer) MD Gil osman Work Phone: [facility] Payers Date Payer Category Payer Self-pay [id number] 2019 Unknown MMO MMO MEDICARE SUPPLEMENT [id number] 2019-Present [phone] [address] [place] [address] Indemnity [id number] 2010 Unknown ANTHEM BLUE CARD TRADITIONAL OOS [id number] 2010-Present [phone] [address] [place] [address] Indemnity [id number] 2010 Unknown [id number]. [id number] 2004 Medicare MEDICARE MEDICAR E A AND B [id number] 2004-Present [phone] [address] [address] [place] [address] Medicare [id number] 2002 Medicare MEDICARE MEDICAR E PART A & B [id number] 2002-Present [phone] [address] [place] [address] [id number]. [id number] 1959 Medicare [id number] 1959 Unknown [id number] 1959 Unknown [id number] 1945 Unknown [id number] 2.16.840.1.645762.3.579.2.593 1945 Unknown [id number] 2.16.840.1.851129.3.579.2.593 1945 Unknown [id number] 2.16.840.1.360652.3.579.2.593 1945 Unknown [id number] 2.16.840.1.503301.3.579.2.593 1945 Unknown [id number] 2.16.840.1.807800.3.579.2.593 1945 Unknown [id number] 2.16.840.1.064550.3.579.2.593 1945 Unknown [id number] 2.16.840.1.234977.3.579.2.593 1945 Unknown [id number] 2.16.840.1.195848.3.579.2.593 1945 Unknown [id number] 2.16.840.1.437924.3.579.2.593 1945 Unknown [id number] 2.16.840.1.228351.3.579.2.593 1945 Unknown [id number] 2.16.840.1.283596.3.579.2.593 1945 Unknown [id number] 2.16.840.1.296387.3.579.2.1259 1945 Unknown [id number] 2.16.840.1.063835.3.579.2.1259 1945 Unknown [id number] 2.16.840.1.634123.3.579.2.1259 1945 Unknown [id number] 2.16.840.1.078869.3.579.2.1259 1945 Unknown [id number] 2.16.840.1.856615.3.579.2.1286 1945 Unknown [id number] 2.16.840.1.248850.3.579.2.1286 Unknown [id number] 2.16.840.1.175756.3.579.2.531 Unknown [id number] 2.16.840.1.950493.3.579.2.531 Social History Date Type Detail Facility Start: 05-21-2015 End: 05-02-2022 Tobacco smoking status NHIS Ex-smoker [facility] End: 03-09-1988 History of tobacco use Current smoker [facility] End: 03-09-1988 History of tobacco use Cigarette Smoker [facility] Start: 05-21-2015 End: 04-19-2020 Cigarettes smoked current (pack per day) - Reported 1 [facility] Start: 05-21-2015 End: 05-02-2022 Tobacco use and exposure Smokeless tobacco non-user [facility] Start: 03-26-2018 End: 12-19-2022 Alcohol intake Current drinker of alcohol (finding) [facility] Start: 03-26-2018 History SDOH Alcohol Comment rare [facility] Start: 1945 Sex Assigned At Not on file C [facility] Start: 06-04-2021 End: 08-12-2021 Exposure to SARS-CoV-2 (event) Not sure [facility] Start: 04-19-2020 End: 12-19-2022 Sex Assigned At [facility] Start: 1945 Sex Assigned At Male F [facility] Adolescent depressio n screening assessment 0 [employer] Start: 01-05-2017 Alcohol Comment drinks occasionally [employer] Medical Equipment Procedure Code Equipment Code Equipment Origin al Text Equipment Identifier Dates Head Rsp 36mm Neutral Glenoid Retain Screw - [id number] Start: 04-02-2018 Insert Rsp Djo Surgical Standard Hxe+ Socket Sterile Humeral - [id number] Start: 04-02-2018 Stem Altivate Dj o Surgical 14 Standard 108mm Humeral Sterile Shoulder - [id number] Start: 04-02-2018 Baseplate Rsp P2 30mm Glenoid Sterile - [id number] Start: 04-02-2018 Screw Rsp 5mm 26 mm Bone Lock Glenoid Baseplate Shoulder - [id number] Start: 04-02-2018 Screw Rsp 5mm 30 mm Bone Lock Glenoid Baseplate Shoulder - [id number] Start: 04-02-2018 Screw Rsp 5mm 26 mm Bone Lock Glenoid Baseplate Shoulder - [id number] Start: 04-02-2018 Screw Rsp 5mm 18 mm Bone Lock Glenoid Baseplate Shoulder - [id number] Start: 04-02-2018 Goals Date Patient Goal Desired Activity /State Clinical Notes 06-14-2021 to 05-22-2023 Irene Boland, [facility] - 05/22/2023 8:00 AM Chrissy Boland, [facility] - 04/03/2023 8:00 AM ESTTelephone Encounter - Lizzette Mcnulty - 03/11/2023 8:27 AM EST Note Date & Type Note Facility 05-22-2023 History of Presen t illness Narrative 15 minute ofwf-[id number] follow-up anticoagulation appointment. INR performed in office per protocol. INR 2.0 (goal range: 2.0-3.0). Patient reports: Taking warfarin dosing as documented. Missed or extra doses of warfarin: No Changes to medications: No Changes to lifestyle (diet / alcohol / smoking / activity): No Recent emergency department visit / hospitalization / health changes / new contraindication to current anticoagulant: No Signs/symptoms of bruising/bleeding or clotting or any intolerable adverse events: No Upcoming procedures: No Anticoagulant prescription needed: No Seen referring provider in the last year Duration of therapy reviewed Assessment: INR is remaining stable in therapeutic range on current warfarin regimen. Plan: Patient instructed to continue warfarin 2 mg Mon/Thurs and 4 mg AOD. Check INR in 7 week(s). Patient verbalizes understanding of anticoagulant dosing instructions and information discussed. Dosing regimen, counseling, and follow-up appointment were provided to the patient. Patient reminded to call with questions or any medication changes. Patient instructed to seek medical attention if any major bleeding/bleeding that persists or worsens. Irene Boland [facility] 05/22/23 0805 documented in this encounter [facility] 04-03-2023 History of Presen t illness Narrative 15 minute rxhu-eo-rvvp follow-up anticoagulation appointment. INR performed in office per protocol. INR 2.2 (goal range: 2.0-3.0). Patient reports: Taking warfarin dosing as documented. Missed or extra doses of warfarin: No Changes to medications: No Changes to lifestyle (diet / alcohol / smoking / activity): No Recent emergency department visit / hospitalization / health changes / new contraindication to current anticoagulant: No Signs/symptoms of bruising/bleeding or clotting or any intolerable adverse events: No Upcoming procedures: No Anticoagulant prescription needed: No Seen referring provider in the last year Duration of therapy reviewed Assessment: INR is remaining stable in therapeutic range on current warfarin regimen. Plan: Patient instructed to continue warfarin 2 mg Mon/Thurs and 4 mg AOD. Check INR in 7 week(s). Patient verbalizes understanding of anticoagulant dosing instructions and information discussed. Dosing regimen, counseling, and follow-up appointment were provided to the patient. Patient reminded to call with questions or any medication changes. Patient instructed to seek medical attention if any major bleeding/bleeding that persists or worsens. Irene Boland [facility] 04/03/23 0807 documented in this encounter [facility] 03-11-2023 Miscellaneous Notes Patient called requesting a refill of his warfarin 4 mg tablets for [facility] mail order. Last saw his referring provider 12/19/22. Noted. Refill sent to [facility] as requested for warfarin 4 mg tabs. Last OV: 12/19/22 documented in this encounter [facility] 03-11-2023 Telephone encounter Note Patient called requesting a refill of his warfarin 4 mg tablets for 90 days to [facility] mail order. Last saw his referring provider 12/19/22. [facility] 03-11-2023 Telephone encounter Note Noted. Refill sent to [facility] as requested for warfarin 4 mg tabs. Last OV: 12/19/22 [facility] 03-10-2023 Miscellaneous Notes ----- Message from Delicia Greer MD sent at 03/09/2023 4:58 PM EST ----- Okay to proceed with low risk ----- Message ----- From: Davion Jackson RN Sent: 02/09/2023 9:37 AM EST To: Delicia Greer MD [facility] ----- Message ----- From: Winifred Melissa RP Sent: 02/06/2023 4:00 PM EST To: [facility] Clinical Staff Clearance received 02/06/23 from [facility] via [facility] documented in this encounter [facility] 01-02-2024 Telephone encounter Note ----- Message from Delicia Greer MD sent at 03/09/2023 4:58 PM EST ----- Okay to proceed with low risk ----- Message ----- From: Davion Jackson RN Sent: 02/09/2023 9:37 AM EST To: Delicia Greer MD FYI ----- Message ----- From: Winifred Melissa [facility] Sent: 02/06/2023 4:00 PM EST To: [facility] Clinical Staff Clearance received 02/06/23 from [facility] via [facility] [employer] 11-09-2022 Evaluation note Encounter Date Diagnosis Assessment [...] Nov, Surgical wound present (ICD-10 - T14.8XXA) Seen Other 04-05-2023 NotePROCEDURE: XR FOOT LT MIN [...] Electronically authenticated by: YOU NEWELL Date: 2022-06-11 14:[address] [place], [place] [address]-31-2023 NotePROCEDURE: XR FOOT LT MIN 3 VIEWS, [...] Electronically authenticated by: GERARDO AUGUSTIN Date: 2022-04-08 11:49[facility]01-31-2023 NotePROCEDURE: XR FOOT LT MIN 3 VIEWS, [...] Electronically authenticated by: GERARDO AUGUSTIN Date: 2022-04-08 11:49[facility]12-27-2022 NotePROCEDURE: XR FOOT LT MIN 3 VIEWS [...] Electronically authenticated by: YOU NEWELL Date: 2022-03-04 16:58[facility]12-14-2022 NotePROCEDURE: XR FOOT LT MIN 3 VIEWS [...] Electronically authenticated by: GERARDO AUGUSTIN Date: 2022-02-19 09:16[facility]11-30-2022 NotePROCEDURE: XR FOOT LT MIN 3 VIEWS [...] Electronically authenticated by: GERARDO AUGUSTIN Date: 2022-02-05 06:48[facility]10-31-2022 NotePROCEDURE: XR FOOT LT 2V COMPARISON: 01/24/2021 HISTORY: Pain FINDINGS: 2 minute 27 seconds of fluoroscopy. 57 images. Fluoroscopic images demonstrate triple arthrodesis with posterior calcaneal osteotomy and subtalar fusion. Placement of a wedge spacer in the medial cuneiform. IMPRESSION: Images from triple arthrodesis Electronically authenticated by: YOU NEWELL Date: 2022-01-06 15:43[facility]10-31-2022 NotePROCEDURE: XR FOOT LT MIN 3 VIEWS, [...] Electronically authenticated by: YOU NEWELL Date: 2022-01-06 13:01[facility]10-31-2022 NotePROCEDURE: XR FOOT LT MIN 3 VIEWS, [...] Electronically authenticated by: YOU NEWELL Date: 2022-01-06 13:01[facility]2022 NoteHNO ID: [id number] Author: Darrel Almendarez DPM Service: ? Author Type: Physician Type: Progress Notes Filed: 08/12/2021 4:59 PM Note Text: Patient Visit for Remi Fairchild Matthew 1945 76 year old male SUBJECTIVE: Chief [...] coordinating care for the patient. Darrel Almendarez [facility]2022 History of Present illness Narrative* Darrel Almendarez [...] patient. Darrel Almendarez DPM [facility]22 NoteHNO ID: [id number] Author: Darrel Almendarez DPM Service: ? Author [...] and/or coordinating care for the patient. [facility] History of Present illness Narrative* Darrel Almendarez [...] patient. Darrel Almendarez DPM documented in this encounterSt. [facility]-04-2022 NoteHNO ID: [id number] Author: RT Lorenzo(R) Service: ? Author Type: Technologist Type: Progress [...] BY: RT Lorenzo(Nora) July 10, 2021 12:44 [facility] History of Present illness Narrative* RT Lorenzo(R) [...] 10, 2021 12:44 PM documented in this encounterSt. [facility]04-08-2022 NoteHNO ID: [id number] Author: Manuel Saucedo DPM Service: ? Author Type: Physician Type: Progress Notes Filed: 06/14/2021 1:59 PM Note Text: [facility] Department of Orthopedics [facility] Orthopedic Surgery Name: Remi Zarco Date of [...] brought in radiographs and a CT from [place] which demonstrate a valgus tilt of the [...] fix heis shoulder before he left for [place]. Discussed Dr. Torres but he does not want to drive to [facility]. Suggested he see Dr. Almendarez to discuss [...] decision planning for surgical invention Manuel Saucedo, [facility]04-08-2022 History of Present illness Narrative* Manuel Fair Serafin, BOB - 06/14/2021 1:[address] [facility] Department of Orthopedics [facility] Orthopedic Surgery Name: Remi Zarco Date of [...] brought in radiographs and a CT from [place] which demonstrate a valgus tilt of the [...] fix heis shoulder before he left for [place]. Discussed Dr. Torres but he does not want to drive to [facility]. Suggested he see Dr. Almendarez to discuss [...] invention Manuel Saucedo DPM documented in this encounterSt. [facility] CenterEvaluation note* Diagnosis Acquired valgus deformity of left ankle- Primary Ankle instability, left Chronic pain of left ankle [facility]* Diagnosis DJD (degenerative joint disease), ankle and foot, left- Primary Acquired valgus deformity of left ankle PTTD (posterior tibial tendon dysfunction) Other disorders of synovium, tendon, and bursa Difficulty walking Difficulty in walking [facility]* Diagnosis Left ankle pain, unspecified chronicity DJD (degenerative joint disease), ankle and foot, left documented [facility] this encounter [facility] CenterEvalutr[facility] note* Diagnosis DJD (degenerative joint disease), ankle and foot, left- Primary Osteonecrosis (HCC) Aseptic necrosis of bone, site unspecified PTTD (posterior tibial tendon dysfunction) Other disorders of synovium, tendon, and bursa Acquired valgus deformity of left ankle Difficulty walking Difficulty in walking Ankle instability, left Chronic pain of left ankle [facility] this [facility] CenterEvaluation noteNo assessment information availablePromedica [facility] Work Phone: Evaluation note* Diagnosis assisted (current) use of anticoagulants Long-term (current) use of anticoagulants Essential hypertension Unspecified essential hypertension Persistent atrial fibrillation (CMS-HCC) Atrial fibrillation documented in this encounter [facility]* Diagnosis Essential hypertension- Primary Unspecified essential hypertension Persistent atrial fibrillation (CMS-HCC) Atrial fibrillation assisted (current) use of anticoagulants Long-term (current) use of anticoagulants documented in this encounter ProMedicGigsTime SystemHistory general Narrative - Reported* Type Description Date Medical History HYPERTENSION Medical History HYPOTHYROIDISM Surgical History BILATERAL KNEE REPLACEMENT Surgical History LEFT SHOULDER REPLACEMENT Surgical History MULTIPLE SURGERIES ON BOTH SHOU LDER Surgical History BENIGN TUMOR UNDER LEFT EAR Surgical History LEFT FOOT PARTIAL FUSION Hospitalization History SEE ABOVE Seen Other Hospital Discharge instructions Additional Instructions Apply ointment. Shower tomorrow. Restart coumadin ..[facility] Work Phone: InstructionsNot on filedocumented in this encounter [facility] SystemInstructionsNot on filedocumented in this encounter ProMDialoggy SystemInstructionsNot on filedocumented in this encounter [facility] Tun[place] SystemReason for referral (narrative)* Diagnostic Procedure Only (Routine) - Closed Specialty Diagnoses / Procedures Referred By Mumtaz t Referred To Contact XR IMAGING Diagnoses DJD (degenerative joint disease), ankle and foot, left Procedures XR FOOT GENERAL 3V AP/LAT/OBL LEFT RADEX FOOT COMPLETE MINIMUM 3 VIEWS Darrel Almendarez DPM [address] [place] [address] Xr Imaging Referral ID Status Reason Start Date Expiration Date V isits Requested Visits Authorized [id number] Closed Auto-Generate d Referral 07/10/2021 08/09/2022 1 1 [facility] for referral (narrative)* Diagnostic Procedure Only (Routine) - Closed Specialty Diagnoses / Procedures Referred By Contac t Referred To Contact XR IMAGING Diagnoses DJD (degenerative joint disease), ankle and foot, left Procedures XR FOOT GENERAL 3V AP/LAT/OBL LEFT RADEX FOOT COMPLETE MINIMUM 3 VIEWS Darrel Almendarez DPM [address] [place] [address] Xr Imaging Referral ID Status Reason Start Date Expiration Date V isits Requested Visits Authorized [id number] Closed Auto-Generate d Referral 07/10/2021 08/09/2022 1 1 * Diagnostic Procedure Only (Routine) - Closed Specialty Diagnoses / Procedures Referred By Contac t Referred To Contact XR IMAGING Diagnoses Left ankle pain, unspecified chronicity Procedures XR ANKLE GENERAL 3V AP/LAT/OBL LEFT RADEX ANKLE COMPLETE MINIMUM 3 VIEWS Darrel Almendarez DPM [address] [place] [address] Xr Imaging Referral ID Status Reason Start Date Expiration Date V isits Requested Visits Authorized [id number] Closed Auto-Generate d Referral 06/28/2021 07/28/2022 1 1 [facility] for visit Narrative* Diagnostic Procedure Only (Routine) - Closed Specialty Diagnoses / Procedures Referred By Contac t Referred To Contact XR IMAGING Diagnoses Left ankle pain, unspecified chronicity Procedures XR ANKLE GENERAL 3V AP/LAT/OBL LEFT RADEX ANKLE COMPLETE MINIMUM 3 VIEWS Darrel Almendarez DPM [address] [place] [address] Xr Imaging Referral ID Status Reason Start Date Expiration Date V isits Requested Visits Authorized [id number] Closed Auto-Generate d Referral 06/28/2021 07/28/[address] 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 CenterIn the event this information is protected by the Federal Confidentiality of Alcohol and Drug Abuse Patient Records regulations: The Federal rules restrict any use of the information to criminally investigate or prosecute any alcohol or drug abuse patient.[facility] CenterIn the event this information is protected by the Federal Confidentiality of Alcohol and Drug Abuse Patient Records regulations: The Federal rules restrict any use of the information to criminally investigate or prosecute any alcohol or drug abuse patient.[facility] CenterIn the event this information is protected by the Federal Confidentiality of Alcohol and Drug Abuse Patient Records regulations: The Federal rules restrict any use of the information to criminally investigate or prosecute any alcohol or drug abuse patient.[facility] CenterIn the event this information is protected by the Federal Confidentiality of Alcohol and Drug Abuse Patient Records regulations: The Federal rules restrict any use of the information to criminally investigate or prosecute any alcohol or drug abuse patient.[facility] Reason for Visit (unrecogniz ed section and content) Reason Comments Pain Reason Comments Radio Gen RMP Reason Comments New Pain Reason Comments Established Patient Follow Up Pain Reason Onset Date Comments Cardiac Clearance 03/10/2023 Care Teams (unrecognized sec tion and content) Production Supervisor Off Shift Relationship Specialty Start Date End Date Gil Gee [address] [place] [address] PCP - General Family Practice 02/25/18 Production Supervisor Off Shift Relationship Specialty Start Date End Date Gil Gee [address] [place] [address] PCP - General Family Practice 02/25/18 Production Supervisor Off Shift Relationship Specialty Start Date End Date BelindatrinityGli melendez [address] [place] [address] PCP - General Family Practice 02/25/18 Production Supervisor Off Shift Relationship Specialty Start Date End Date Gil Gee [address] [employer] [place] [address] PCP - General Family Practice 02/25/18 Production Supervisor Off Shift Relationship Specialty Start Date End Date Gil Gee [address] [place] [address] PCP - General Family Practice 02/25/18 Team Status: Active Member Role Status Dates Gil Gee MD Primary Care Provider Active Team Status: Inactive Member Role Status Dates Willie Ross DO Attending Provider Active Gil Gee MD Primary Care Provider Active Production Supervisor Off Shift Relationship Specialty Start Date End Date Gil Gee MD [address] [place] [address] PCP - General 12/09/16 Production Supervisor Off Shift Relationship Specialty Start Date End Date Gil Gee MD [address] [place] [address] PCP - General 12/09/16 (unrecognized sect ion and content) No Status Records FoundNo Status Records FoundNo Status Records FoundNo Status Records FoundNo Status Records Found INFORMATION SOURCE (unrecogn ized section and content) DATE CREATED AUTHOR 08/13/2021 [facility] DATE CREATED AUTHOR AUTHOR'S ORGANIZ ATION 07/21/2022 [facility] DATE CREATED AUTHOR AUTHOR'S ORGANIZ ATION 04/07/2023 [facility] EPIC DATE CREATED AUTHOR AUTHOR'S ORGANIZ ATION 04/17/2023 [facility] DATE CREATED AUTHOR AUTHOR'S ORGANIZ ATION 05/23/2023 [facility] Goals (unrecognized section and content) Goals may [...] BE BASED ON THE PRIMARY CLINICAL RECORDS. [employer] [facility]. provides no warranty or guarantee of the accuracy or completeness of information in this document.
== END 2023-06-02 13:40 | disposition home or self-care (01) ==
LOC: CT 13:39
PROVIDERS: PCP Family Medicine; Visit Provider Podiatrist Foot & Ankle Surgery
DX: M96.0 Pseudarthrosis after fusion or arthrodesis (principal); M19.072 Primary osteoarthritis, left ankle and foot
CPT/HCPCS: 73700

== ENCOUNTER 2023-10-14 13:02 | Outpatient (OUT) | payer MEDICARE, OTHER, BC, SELFPAY ==
--- NOTE | 2023-10-14 | XR_ITS ---
The [address] [address] Patient Name: REMI ZARCO MRN: [id number] date: 1945 Sex: M Assigned Patient Location: Current Patient Location: Accession/Order Number: [id number] Exam Date: 10/14/2023 13:10 Report Date: 10/19/2023 07:08 At the request of: LEXI HERNANDEZ Procedure: XR foot LT min 3V PROCEDURE: XR foot LT min 3V, XR ankle LT min 3V COMPARISON: 05/27/2023 HISTORY: LEFT FOOT PAIN FINDINGS: BONES:Stable postsurgical and degenerative changes. Posterior calcaneal osteotomy transfixed with 2 screws which cross the posterior talocalcaneal joint. Transverse osteotomy and wedged spacer in the medial cuneiform. Single staple across the talonavicular joint with fracture, unchanged. Single screw in the medial midfoot hindfoot transfixing the navicular and talus with fracture, stable. Single screw transfixing the anterior talocalcaneal joint. Moderate to severe diffuse degenerative changes with [id number] articulation of the tibiotalar joint. Lucency in the distal tibia from bone graft harvesting. SOFT TISSUES:Negative. No visible soft tissue swelling. EFFUSION:None visible. OTHER: Negative. XR/XR foot LT min 3V IMPRESSION: Stable exam with some partial bony bridging along the posterior inferior calcaneal osteotomy Electronically authenticated by: YOU NEWELL Date: 10/19/2023 07:08
--- NOTE | 2023-10-14 | XR_ITS ---
The [address] [address] Patient Name: REMI ZARCO MRN: [id number] date: 1945 Sex: M Assigned Patient Location: Current Patient Location: Accession/Order Number: [id number] Exam Date: 10/14/2023 13:10 Report Date: 10/19/2023 07:08 At the request of: LEXI HERNANDEZ Procedure: XR ankle LT min 3V PROCEDURE: XR foot LT min 3V, XR ankle LT min 3V COMPARISON: 05/27/2023 HISTORY: LEFT FOOT PAIN FINDINGS: BONES:Stable postsurgical and degenerative changes. Posterior calcaneal osteotomy transfixed with 2 screws which cross the posterior talocalcaneal joint. Transverse osteotomy and wedged spacer in the medial cuneiform. Single staple across the talonavicular joint with fracture, unchanged. Single screw in the medial midfoot hindfoot transfixing the navicular and talus with fracture, stable. Single screw transfixing the anterior talocalcaneal joint. Moderate to severe diffuse degenerative changes with [id number] articulation of the tibiotalar joint. Lucency in the distal tibia from bone graft harvesting. SOFT TISSUES:Negative. No visible soft tissue swelling. EFFUSION:None visible. OTHER: Negative. XR/XR ankle LT min 3V IMPRESSION: Stable exam with some partial bony bridging along the posterior inferior calcaneal osteotomy Electronically authenticated by: YOU NEWELL Date: 10/19/2023 07:08
--- OUTSIDE RECORDS SUMMARY | 2023-10-14 13:07 | XMS_ITS | CCD ---
Author Organization [facility] Care Team Providers Care Hostess Cashier Name Role Phone Gil Gee Primary Care Provider [phone] DEMETRIA, DR GERARDO Melendez Consulting Unavailable NADERER, [...] Attending Unavailable HIGHLANDER, LEXI Melendez Admitting Unavailable WALDEMAR BARRETT Consulting Unavailable WEST, DR YOU Whiteside Consulting Unavailable NADERENora, DR GIL Fairchild Attending Unavailable NADERER, DR GIL Fairchild Admitting Unavailable NADERER, DR GIL Fairchild Primary Care Unavailable NADERER, DR GIL Fairchild Consulting Unavailable MARY, LEXI Melendez Consulting Unavailable GUSTRACEY Consulting Unavailable STEPHON ., CHRISTINA ROJO Consulting Unavailable MARY, LEXI Melendez Procedure Practitioner Unava ilable MACY MONTES Consulting Unavailable WEST, DR YOU Whiteside Consulting Unavailable NADERENora, DR GIL Fairchild Primary Care Unavailable JOHANA, KIRSTIE Attending Unavailable JOHANA, KIRSTIE Admitting Unavailable JOHANA, KIRSTIE Consulting Unavailable Lizbet Yolanda Unavailable DO Willie Ross Attending Provider MD Gil Gee Primary Care Provider Gil Gee MD Primary Care Provider Willie Ross Admitting Unavailable Murceheather, Willie Attending Unavailable Naderer, Gil Primary Care Unavailable Murcek, Willie Attending Unavailable Naderer, Gil Primary Care Unavailable Murcek, Willie Admitting Unavailable SERVICE, JOBST Referring Unavailable NADERER, GIL Primary Care Unavailable SERVICE, JOBST Referring Unavailable NADERER, GIL Primary Care Unavailable SERVICE, JOBST Referring Unavailable NADERER, GIL Primary Care Unavailable MURCEK, WILLIE W Attending Unavailable MULTANI, PACO Fair Attending Unavailable MURCEK, WILLIE W Attending Unavailable MURCEK, WILLIE W Attending Unavailable NADERER, GIL Attending Unavailable PETITTISUMAN Attending Unavailable RANGEL, PACO Fair Attending Unavailable Allergies Allergy Classification Reported Allergen(s) Allergy Type Date of Onset Reaction(s) Facility (13 sources) Morphine; Translations: [MORPHINE] Drug Allergy 7 Other: See Comments [facility] (2 sources) Morphine Drug Allergy [facility] Repository (3 sources) rosuvastatin; Translations: [rosuvastatin] Drug Allergy 3 Muscle Pain [facility] (1 source) Morphine Drug Allergy 3 [facility] Repository Medications Current Medications Medication Drug [...] tablet Indications: Essential hypertension , Atrial fibrillation ([facility]) Take 1 tablet (25 mg total) by [...] daily. Been taking one every other day [place] 4-Vii-Yjq-Fish Oil (Fish Oil) 1,200 (144-216) mg Capsule (2 sources) Start: 3 take 1 capsule by mouth once daily in the morning [place] 7-Pnn-Ujc-Fish Oil (Fish Oil) 1,200 (144-216) mg Capsule Active 1 CAP PO Every morning February 10, 2023 12:00am omega 6-lvs-fns-fish oil 300-1,000 mg capsule (4 sources) omega 3-dha-epa- fish oil 300-1,000 mg capsule Take by mouth. 0 Active warfarin sodium 4 mg oral tablet (14 sources) Vitamin K Antagonist Start: 4 take 0.5-1 tablets by mouth in the evening warfarin (COUMADIN) 4 mg tablet Indications: care home (current) use of anticoagulants , Essential hypertension , Persistent atrial fibrillation (CMS-HCC) Take 0.5-1 tablets (2-4 mg total) by mouth in the evening. as directed by Romel JARRETT (Medication Therapy Management).. 90 tablet 1 03/11/2023 [...] sources) Long-term current use of anticoagulant; Translations: [sheet layer (current) use of anticoagulants] Onset: 07-30-2018 07-30-2018 [...] 01-14-2018 01-14-2018 Episodic Other aftercare (2 sources) sheet layer (current) use of anticoagulants; Translations: [TRUST ADMINISTRATOR CURRNT USE ANTICOAGULANTS] Onset: 07-30-2018 Episodic Other aftercare (4 sources) Other chcf (current) drug therapy; Translations: [OTH GROUP HOME CURRENT DRUG THERAPY] Onset: 10-23-2021 Episodic Other [...] time] 2.0 {INR} Abnormal 0.8 - 1.2 [facility] Interpretation and review of laboratory results Abnormal [facility] POCT Protime / INRon 024 INR Coag (PPP) [Relative time] 2.2 {INR} Abnormal 0.8 - 1.2 [facility] Interpretation and review of laboratory results Abnormal [facility] Activated partial thrombopla stin time (aPTT) in platelet poor plasma by coagulation aOrdered By: YOU RAMIREZ on 02-24-2023 aPTT Coag (PPP) [Time] 30.8 s 25.1-36.5 [facility] Comment on above: A hematocrit value g reater than 55% may lead to inaccurate results in coagulation testing. Patients having hematocrit values >55% require a special collection tube for coagulation studies. Please contact the laboratory at [phone] for redraw instructions. Coagulation Profileon 2022 aPTT Coag (Bld) [Time] 30.8 s Normal 25.1-36.5 [facility] Comment on above: Result Comment: A he matocrit value greater than 55% may lead to inaccurate results in coagulation testing. Patients having hematocrit values >55% require a special collection tube for coagulation studies. Please contact the laboratory at [phone] for redraw instructions. PERFORMED BY: [facility] [address] [place] [address] PATHOLOGIST SAP MOBILITY ARCHITECT QING BABB M.D. Performed By: #### P P #### [facility] [address] [place] [address] [place] INR Coag (PPP) [Relative time] 1.2 {INR} Normal [facility] Comment on above: Result Comment: INR [...] 4.5 Performed By: #### P P #### [facility] [address] [place] [address] [facility] PT Coag (PPP) [Time] 13.9 s High 9.0-12.9 [facility] Comment on above: Result Comment: A he matocrit value greater than 55% may lead to inaccurate results in coagulation testing. Patients having hematocrit values >55% require a special collection tube for coagulation studies. Please contact the laboratory at [phone] for redraw instructions. Performed By: #### P P #### [facility] [address] [id number] [facility] INR in Platelet poor plasma by Coagulation assayOrdered By: YOU RAMIREZ on 02-24-2023 INR Coag (PPP) [Relative time] 1.2 {INR} [facility] Comment on above: INR Therapeutic Rang [...] - 4.5 Jose 02-24-2023 L ------ Specimen: [id number] Received: 02/24/23 Status: MIK Jarred Num: [id number] Spec Type: Surgical Subm Dr: Willie Ross DO Tissues: A Skin-Other than Cyst, tag, debridement or plastic repair (LT CHEEK) B Skin-Other than Cyst, tag, debridement or plastic repair (RT RASTAFARIAN) Procedures: HE/6, Gross/Micro L4/2, FS HE/6 Age/ Patient Sex Location Account Attending Physician Remi Zarco 77/M CO [id number] Willie Ross DO SPEC NUM: [id number] RECD: 02/24/23 STATUS: MIK JARRED NUM: [id number] ARIAN: 02/24/[address]: Willie Ross DO ENTERED: 02/24/[address] [facility] [address]: SPEC TYPE: Surgical DEPT: S ORDERED: HE/6, Gross/Micro L4/2, FS HE ORDERED: HE/6, Gross/Micro L4/2, FS Pathological Diagnosis A. Skin, left cheek, excision: - Basal cell carcinoma of the large, sclerosing, and mildly metatypical types in all central transverse sections examined - No evidence of lymphovascular or perineural invasion identified, but with a tiny focus of Juxta-neural invasion noted, which otherwise is also far away from deep margin - All margins are evidently negative for malignancy B. Skin, right nondenominational, excision: - Benign seborrheic keratosis of the mixed reticular, mildly pigmented, and the usual plaque types - Incidental occasional mild colonizations of dermatophyte spores of note - Adequately removed for assessment, and no evidence of malignancy, squamous dysplasia, or nevoid atypia identified Specimen: [id number] Received: 02/24/23 Status: MIK Whitmore Num: [id number] Spec Type: Surgical Subm Dr: Willie Ross DO Tissues: A Skin-Other than Cyst, tag, debridement or plastic repair (LT CHEEK) B Skin-Other than Cyst, tag, debridement or plastic repair (RT RASTAFARIAN) Procedures: HE/6, Gross/Micro L4/2, FS Patient: Remi Zarco [id number] (Continued) Specimen: [id number] Received: 02/24/23 (Continued) Signed (signature on file) Oesas Lai MD 02/25/23 1518 Specimen: [id number] Received: 02/24/23 Status: MIK Jarred Num: [id number] Spec Type: Surgical Subm Dr: Willie Ross DO Tissues: A Skin-Other than Cyst, tag, debridement or plastic repair (LT CHEEK) B Skin-Other than Cyst, tag, debridement or plastic repair (RT RASTAFARIAN) Procedures: HE/6, Gross/Micro L4/2, FS HE/6 Patient: Remi Zarco [id number] (Continued) Specimen: [id number] Received: 02/24/23-3 (Continued) Clinical Information A) basal cell skin [...] the patient's name, date of and right nondenominational skin lesion is a 1.7 x 0.7 [...] tip B (more content not included)... Normal [facility] Prothrombin time (PT)Ordered By: YOU RAMIREZ on 02-24-2023 PT Coag (PPP) [Time] 13.9 s 9.0-12.9 [facility] Comment on above: A hematocrit value g reater than 55% may lead to inaccurate results in coagulation testing. Patients having hematocrit values >55% require a special collection tube for coagulation studies. Please contact the laboratory at [phone] for redraw instructions. Basic Metabolic Panelon 12-0 Anion gap [Moles/Vol] 8.9 mmol/L Normal 6.0-15.0 [facility] Comment on above: Performed By: #### C BC, BMP #### [facility] [address] Calcium [Mass/Vol] 9.3 mg/dL Normal 8.6-10.3 [facility] Comment on above: Result Comment: PERF ORMED BY: [place] [address] PATHOLOGIST SAP MOBILITY ARCHITECT QING BABB M.D. Performed By: #### C JAQUELIN, BMP #### [address] Chloride [Moles/Vol] 105 mmol/L Normal 98-107 [facility] Comment on above: Performed By: #### C JAQUELIN, BMP #### [facility] [address] CO2 [Moles/Vol] 28.3 mmol/L Normal 21.0-31.0 [facility] Comment on above: Performed By: #### C JAQUELIN, BMP #### [address] Creatinine [Mass/Vol] 1.19 mg/dL Normal 0.70-1.30 [facility] Comment on above: Performed By: #### C JAQUELIN, BMP #### [place] [address] [place] GFR/1.73 sq M.predicted MDRD (S/P/Bld) [Vol rate/Area] mL/min/{1.73_m2} Normal [facility] Comment on above: Performed By: #### C BC, BMP #### [place] [address] [place] Glucose [Mass/Vol] 93 mg/dL Normal 70-100 [facility] Comment on above: Result Comment: [facility] Glucose Reference Range is dependent on time and content of last meal. Glucose of more than 200 mg/dL in a nonstressed, ambulatory subject supports the diagnosis of Diabetes Mellitus. ADA recommended reference range Performed By: #### C BC, BMP #### [facility] [address] Potassium [Moles/Vol] 4.2 mmol/L Normal 3.5-5.1 [facility] Comment on above: Performed By: #### C BC, BMP #### [facility] [address] Sodium [Moles/Vol] 138 mmol/L Normal 136-145 [facility] Comment on above: Performed By: #### C BC, BMP #### [facility] [address] Urea nitrogen [Mass/Vol] 21 mg/dL Normal 7-25 [facility] Comment on above: Performed By: #### C BC, BMP #### [facility] [address] Basophils Auto (Bld) [#/Vol] Ordered By: Willie Ross on 02-10-2023 Basophils (Bld) [#/Vol] 0.1 10*3/uL 0.0-0.2 [facility] Basophils/100 WBC Auto (Bld) Ordered By: Willie Ross on 02-10-2023 Basophils/100 WBC (Bld) 1.2 % . [facility] Calcium [Mass/volume] in Ser um or PlasmaOrdered By: Willie Ross on 02-10-2023 Calcium [Mass/Vol] 9.3 mg/dL 8.6-10.3 [facility] Carbon dioxide, total [Moles /volume] in Serum or PlasmaOrdered By: Willie Ross on 02-10-2023 CO2 [Moles/Vol] 28.3 mmol/L 21.0-31.0 [facility] Chloride [Moles/volume] in S esther or PlasmaOrdered By: Willie Ross on 02-10-2023 Chloride [Moles/Vol] 105 mmol/L 98-107 [facility] Complete Blood Count Auto Di ffon 02-10-2023 Basophils (Bld) [#/Vol] 0.1 10*3/uL Normal 0.0-0.2 [facility] Comment on above: Result Comment: PERF ORMED BY: [place] [address] PATHOLOGIST SAP MOBILITY ARCHITECT QING BABB M.D. Performed By: #### C BC, BMP #### [facility] [address] [place] [address] [place] Basophils/100 WBC (Bld) 1.2 % Normal . [facility] Comment on above: Performed By: #### C BC, BMP #### [facility] [address] [place] [address] [place] Eosinophils (Bld) [#/Vol] 0.2 10*3/uL Normal 0.0-0.45 [facility] Comment on above: Performed By: #### C BC, BMP #### [place] [address] [place] Eosinophils/100 WBC (Bld) 3.7 % Normal . [facility] Comment on above: Performed By: #### C BC, BMP #### [address] Erythrocyte distribution width (RBC) [Ratio] 14.4 % Normal 12.0-14.8 [facility] Comment on above: Performed By: #### C BC, BMP #### [address] Hematocrit (Bld) [Volume fraction] 37.2 % Low 38.8-50.0 [facility] Comment on above: Performed By: #### C BC, BMP #### [place] [address] [place] Hemoglobin (Bld) [Mass/Vol] 12.8 g/dL Low 13.0-17.0 [facility] Comment on above: Performed By: #### C BC, BMP #### [place] [address] [place] Lymphocytes (Bld) [#/Vol] 1.2 10*3/uL Normal 1.00-4.8 [facility] Comment on above: Performed By: #### C BC, BMP #### [facility] [address] [place] [address] [place] Lymphocytes/100 WBC (Bld) 23.4 % Normal . [facility] Comment on above: Performed By: #### C BC, BMP #### [facility] [address] MCH (RBC) [Entitic mass] 30.3 pg Normal 27.5-35.2 [facility] Comment on above: Performed By: #### C BC, BMP #### [facility] [address] MCV (RBC) [Entitic vol] 87.9 fL Normal 83.5-101 [facility] Comment on above: Performed By: #### C BC, BMP #### [address] Mean Corpuscular HGB Conc 34.5 g/dL Normal 32.5-35.6 [facility] Comment on above: Performed By: #### C BC, BMP #### [facility] [address] [place] [address] [place] Monocytes (Bld) [#/Vol] 0.3 10*3/uL Normal 0.0-0.8 [facility] Comment on above: Performed By: #### C BC, BMP #### [facility] [address] Monocytes/100 WBC (Bld) 6.8 % Normal . [facility] Comment on above: Performed By: #### C BC, BMP #### [facility] [address] [place] [address] [place] Neutrophils (Bld) [#/Vol] 3.3 10*3/uL Normal 1.8-7.7 [facility] Comment on above: Performed By: #### C BC, BMP #### [facility] [address] [place] [address] [place] Neutrophils/100 WBC (Bld) 64.9 % Normal . [facility] Comment on above: Performed By: #### C BC, BMP #### [facility] [address] NRBC% 0.1 /100{WBC} Normal 0-0.5 [facility] Comment on above: Performed By: #### C JAQUELIN, BMP #### [facility] [address] Platelet mean volume (Bld) [Entitic vol] 7.9 fL Normal 6.6-10.1 [facility] Comment on above: Performed By: #### C JAQUELIN, BMP #### [facility] [address] Platelets (Bld) [#/Vol] 203 10*3/uL Normal 150-450 [facility] Comment on above: Performed By: #### C JAQUELIN, BMP #### [address] RBC (Bld) [#/Vol] 4.23 10*6/uL Normal 3.90-5.60 [facility] Comment on above: Performed By: #### C JAQUELIN, BMP #### [address] WBC (Bld) [#/Vol] 5.1 10*3/uL Normal 4.1-10.5 [facility] Comment on above: Performed By: #### C JAQUELIN, BMP #### [address] Creatinine [Mass/volume] in Serum or PlasmaOrdered By: Willie Ross on 02-10-2023 Creatinine [Mass/Vol] 1.19 mg/dL 0.70-1.30 [facility] Eosinophils Auto (Bld) [#/Vo l]Ordered By: Willie Ross on 02-10-2023 Eosinophils (Bld) [#/Vol] 0.2 10*3/uL 0.0-0.45 [facility] Eosinophils/100 WBC Auto (Bl d)Ordered By: Willie Ross on 02-10-2023 Eosinophils/100 WBC (Bld) 3.7 % . [facility] Erythrocyte distribution wid th Auto (RBC) [Ratio]Ordered By: Willie Ross on 02-10-2023 Erythrocyte distribution width (RBC) [Ratio] 14.4 % 12.0-14.8 [facility] Glucose [Mass/volume] in Ser um or PlasmaOrdered By: Willie Ross on 02-10-2023 Glucose [Mass/Vol] 93 mg/dL 70-100 [facility] Comment on above: ADA recommended refe rence rangeRandom Glucose Reference Range is dependent on time and content of last meal. Glucose of more than 200 mg/dL in a nonstressed, ambulatory subject supports the diagnosis of Diabetes Mellitus. Hematocrit Auto (Bld) [Volum e fraction]Ordered By: Willie Ross on 02-10-2023 Hematocrit (Bld) [Volume fraction] 37.2 % 38.8-50.0 [facility] Hemoglobin [Mass/volume] in BloodOrdered By: Willie Ross on 02-10-2023 Hemoglobin (Bld) [Mass/Vol] 12.8 g/dL 13.0-17.0 [facility] Leukocytes [#/volume] correc aster for nucleated erythrocytes in Blood by Automated counOrdered By: Willie Ross on 02-10-2023 WBC corrected for nucl RBC Auto (Bld) [#/Vol] 5.1 10*3/uL 4.1-10.5 [facility] Lymphocytes Auto (Bld) [#/Vo l]Ordered By: Willie Ross on 02-10-2023 Lymphocytes (Bld) [#/Vol] 1.2 10*3/uL 1.00-4.8 [facility] Lymphocytes/100 WBC Auto (Bl d)Ordered By: Wlilie Ross on 02-10-2023 Lymphocytes/100 WBC (Bld) 23.4 % . [facility] MCH Auto (RBC) [Entitic mass ]Ordered By: Willie Ross on 02-10-2023 MCH (RBC) [Entitic mass] 30.3 pg 27.5-35.2 [facility] MCHC Auto (RBC) [Mass/Vol]Or dered By: Willie Ross on 02-10-2023 MCHC (RBC) [Mass/Vol] 34.5 g/dL 32.5-35.6 [facility] MCV Auto (RBC) [Entitic vol] Ordered By: Willie Ross on 02-10-2023 MCV (RBC) [Entitic vol] 87.9 fL 83.5-101 [facility] Monocytes Auto (Bld) [#/Vol] Ordered By: Willie Ross on 02-10-2023 Monocytes (Bld) [#/Vol] 0.3 10*3/uL 0.0-0.8 [facility] Monocytes/100 WBC Auto (Bld) Ordered By: Willie Ross on 02-10-2023 Monocytes/100 WBC (Bld) 6.8 % . [facility] Neutrophils Auto (Bld) [#/Vo l]Ordered By: Willie Ross on 02-10-2023 Neutrophils (Bld) [#/Vol] 3.3 10*3/uL 1.8-7.7 [facility] Neutrophils/100 WBC Auto (Bl d)Ordered By: Willie Ross on 02-10-2023 Neutrophils/100 WBC (Bld) 64.9 % . [facility] No Panel InformationOrdered By: Willie Ross on 02-10-2023 Estimated GFR (CKD-EPI) > 60.0 mL/Min [facility] Creatinine Clearance (Chem N/A [facility] Nucleated erythrocytes [Pres ence] in Blood by Automated countOrdered By: Willie Ross on 02-10-2023 Nucleated RBC Auto Ql (Bld) 0.1 /100{WBC} 0-0.5 [facility] Platelet mean volume Auto (B ld) [Entitic vol]Ordered By: Willie Ross on 02-10-2023 Platelet mean volume (Bld) [Entitic vol] 7.9 fL 6.6-10.1 [facility] Platelets Auto (Bld) [#/Vol] Ordered By: Willie Ross on 02-10-2023 Platelets (Bld) [#/Vol] 203 10*3/uL 150-450 [facility] Potassium [Moles/volume] in Serum or PlasmaOrdered By: Willie oRss on 02-10-2023 Potassium [Moles/Vol] 4.2 mmol/L 3.5-5.1 [facility] RBC Auto (Bld) [#/Vol]Ordere d By: Willie Ross on 02-10-2023 RBC (Bld) [#/Vol] 4.23 10*6/uL 3.90-5.60 [facility] Serum or plasma anion gap de terminationOrdered By: Willie Ross on 02-10-2023 Anion gap [Moles/Vol] 8.9 mmol/L 6.0-15.0 [facility] Sodium [Moles/volume] in Ser um or PlasmaOrdered By: Willie Ross on 02-10-2023 Sodium [Moles/Vol] 138 mmol/L 136-145 [facility] Urea nitrogen [Mass/volume] in Serum or PlasmaOrdered By: Willie Ross on 02-10-2023 Urea nitrogen [Mass/Vol] 21 mg/dL 7-25 [facility] WBC Auto (Bld) [#/Vol]Ordere d By: Willie Ross on 02-10-2023 WBC (Bld) [#/Vol] 5.1 10*3/uL 4.1-10.5 [facility] RESPIRATORY PANEL PLUSon Adenovirus Not detected Normal NOT DETECTED [facility] Comment on above: Performed By: #### P OCGLUC #### [facility] [address] [place] [address] Dr. Saskia Arzate Parapertusis Not detected Normal NOT DETECTED [facility] Comment on above: Performed By: #### P OCGLUC #### [facility] [address] [place] [address] Dr. Saskia Arzate Pertussis Not detected Normal NOT DETECTED [facility] Comment on above: Performed By: #### P OCGLUC #### [facility] [address] [address] [address] Saskia Lai Chlamydia Pneumoniae Not detected Normal NOT DETECTED [facility] Comment on above: Performed By: #### P OCGLUC #### [facility] [address] [place] [address] Dr. Saskia Lai Coronavirus [id number] Not detected Normal NOT DETECTED [facility] Comment on above: Performed By: #### P OCGLUC #### [facility] [address] [place] [address] Dr. Saskia Lai Coronavirus HKU1 Not detected Normal NOT DETECTED [facility] Comment on above: Performed By: #### P OCGLUC #### [facility] [address] [address] [address] Saskia Lai Coronavirus NL63 Not detected Normal NOT DETECTED [facility] Comment on above: Performed By: #### P OCGLUC #### [facility] [address] [place] [address] Dr. Saskia Lai Coronavirus OC43 Not detected Normal NOT DETECTED [facility] Comment on above: Performed By: #### P OCGLUC #### [facility] [address] [place] [address] Dr. Saskia Lai Influenza A H1 Not detected Normal NOT DETECTED [facility] Comment on above: Performed By: #### P OCGLUC #### [facility] [address] [place] [address] Dr. Saskia Lai Influenza A H1 2009 Not detected Normal NOT DETECTED [facility] Comment on above: Performed By: #### P OCGLUC #### [facility] [address] [place] [address] Dr. Saskia Lai Influenza A H3 Not detected Normal NOT DETECTED [facility] Comment on above: Performed By: #### P OCGLUC #### [facility] Laboratory [address] [place] [address] Dr. Saskia Lai Influenza B Not detected Normal NOT DETECTED [facility] Comment on above: Performed By: #### P OCGLUC #### [facility] Laboratory [address] [place] [address] Dr. Saskia Lai Metapneumovirus Detected Abnormal NOT DETECTED [facility] Comment on above: Performed By: #### P OCGLUC #### [facility] Laboratory [address] [place] [address] Dr. Saskia Lai Mycoplas. Pneumoniae Not detected Normal NOT DETECTED [facility] Comment on above: Performed By: #### P OCGLUC #### [facility] Laboratory [address] [place] [address] Dr. Saskia Lai Parainfluenza 1 Not detected Normal NOT DETECTED [facility] Comment on above: Performed By: #### P OCGLUC #### [facility] [address] [place] [address] Dr. Saskia Lai Parainfluenza 2 Not detected Normal NOT DETECTED [facility] Comment on above: Performed By: #### P OCGLUC #### [facility] Laboratory [address] [place] [address] Dr. Saskia Lai Parainfluenza 3 Not detected Normal NOT DETECTED [facility] Comment on above: Performed By: #### P OCGLUC #### [facility] Laboratory [address] [place] [address] Dr. Saskia Lai Parainfluenza 4 Not detected Normal NOT DETECTED [facility] Comment on above: Performed By: #### P OCGLUC #### [facility] [address] [place] [address] Dr. Saskia Lai Rhino/Enterovirus Not detected Normal NOT DETECTED [facility] Comment on above: Performed By: #### P OCGLUC #### [facility] [address] [place] [address] Dr. Saskia Lai RP2 Header 1 RESPIRATORY PANEL: VIRUSES Normal [facility] Comment on above: Performed By: #### P OCGLUC #### [facility] [address] [place] [address] Dr. Saskia CONKLIN Header 2 RESPIRATORY PANEL: BACTERIA Normal [facility] Comment on above: Performed By: #### P OCGLUC #### [facility] [address] [place] [address] Dr. Saskia aLi RSV Not detected Normal NOT DETECTED [facility] Comment on above: Performed By: #### P OCGLUC #### [facility] [address] [place] [address] Dr. Saskia Lai SARS-CoV-2 (COVID-19) RNA TOSHA+probe Ql (Unsp spec) Not detected Normal NOT DETECTED [facility] Comment on above: Performed By: #### P OCGLUC #### [facility] Laboratory [address] [place] [address] Dr. Saskia Lai CBC AUTO DIFFon 01-08-2022 BASO # 0.0 103/ul Normal 0.0-0.1 [facility] Comment on above: Performed By: #### C BC #### [facility] [address] [place] [address] Dr. Saskia Lai Basophils/100 WBC (Bld) 0.2 % Normal 0.2-2.0 [facility] Comment on above: Performed By: #### C BC #### [facility] [address] [place] [address] Dr. Saskia Lai EO # 0.1 103/ul Normal 0.0-0.7 [facility] Comment on above: Performed By: #### C BC #### [facility] [address] [place] [address] Dr. Saskia Lai Eosinophils/100 WBC (Bld) 0.8 % Critically low 0.9-7.0 [facility] Comment on above: Performed By: #### C BC #### [facility] [address] [place] [address] Dr. Saskia Lai Erythrocyte distribution width (RBC) [Ratio] 14.6 % Normal 11.0-15.0 [facility] Comment on above: Performed By: #### C BC #### [facility] [address] [place] [address] Dr. Saskia Lai Hematocrit (Bld) [Volume fraction] 32.5 % Critically low 42.0-54.0 [facility] Comment on above: Performed By: #### C BC #### [facility] [address] [place] [address] Dr. Saskia Lai Hemoglobin (Bld) [Mass/Vol] 10.8 g/dL Critically low 14.0-18.0 [facility] Comment on above: Performed By: #### C BC #### [facility] [address] [place] [address] Dr. Saskia Lai IG # 0.02 10e3/ul Normal 0.00-0.03 [facility] Comment on above: Performed By: #### C BC #### [facility] [address] [place] [address] Dr. Saskia Lai IG % 0.2 % Normal 0.0-0.5 [facility] Comment on above: Performed By: #### C BC #### [facility] [address] [place] [address] Dr. Saskia Lai LYMPH # 1.2 103/ul Normal 1.2-3.8 [facility] Comment on above: Performed By: #### C BC #### [facility] [address] [place] [address] Dr. Saskia Lai Lymphocytes/100 WBC (Bld) 12.3 % Critically low 20.5-60.0 [facility] Comment on above: Performed By: #### C BC #### [facility] [address] [place] [address] Dr. Saskia Lai MANUAL DIFF REQ NO Normal [facility] Comment on above: Performed By: #### C BC #### [facility] [address] [place] [address] Dr. Saskia Lai MCH (RBC) [Entitic mass] 29.8 pg Normal 25.9-34.0 [facility] Comment on above: Performed By: #### C BC #### [facility] [address] [place] [address] Dr. Saskia Lai MCHC (RBC) [Mass/Vol] 33.2 g/dL Normal 29.9-35.2 [facility] Comment on above: Performed By: #### C BC #### [facility] [address] [place] [address] Dr. Saskia Lai MCV (RBC) [Entitic vol] 89.8 fL Normal 80.0-94.0 [facility] Comment on above: Performed By: #### C BC #### [facility] [address] [place] [address] Dr. Saskia Lai MONO # 0.7 103/ul Normal 0.3-0.8 [facility] Comment on above: Performed By: #### C BC #### [facility] [address] [place] [address] Dr. Saskia Lai Monocytes/100 WBC (Bld) 7.1 % Normal 1.7-12.0 [facility] Comment on above: Performed By: #### C BC #### [facility] [address] [place] [address] Dr. Saskia Lai NEUT # 7.6 103/ul Critically high 1.4-6.5 [facility] Comment on above: Performed By: #### C BC #### [facility] [address] [place] [address] Dr. Saskia Lai Neutrophils/100 WBC (Bld) 79.4 % Critically high 43.0-75.0 [facility] Comment on above: Performed By: #### C BC #### [facility] [address] [place] [address] Dr. Saskia Lai Platelet mean volume (Bld) [Entitic vol] 10.5 fL Normal 9.5-13.5 [facility] Comment on above: Performed By: #### C BC #### [facility] [address] [place] [address] Dr. Sasika Lai PLT 172 103/ul Normal 150-450 [facility] Comment on above: Performed By: #### C BC #### [facility] [address] [place] [address] Dr. Saskia Lai RBC 3.62 106/ul Critically low 4.70-6.10 [facility] Comment on above: Performed By: #### C BC #### [facility] [address] [place] [address] Dr. Saskia Lai WBC 9.6 103/ul Normal 4.0-11.0 [facility] Comment on above: Performed By: #### C BC #### [facility] [address] [place] [address] Dr. Saskia Lai Covid-19 PCR ([facility])on SARS-CoV-2 (COVID-19) RNA TOSHA+probe Ql (Unsp spec) Not detected Normal NOT DETECTED [facility] Comment on above: Result Comment: When diagnostic [...] for this test is supported by the [employer] and Human Service's declaration that [...] used). Performed By: #### C VDTBH #### [facility] [address] [place] [address] Dr. Saskia Lai PROF CHEM 8 (BAS METB)on Anion gap [Moles/Vol] 10.6 mmol/L Normal [facility] Comment on above: Performed By: #### C VDTBH #### [facility] [address] [place] [address] Dr. Saskia Lai Calcium [Mass/Vol] 8.8 mg/dL Normal 8.5-10.1 [facility] Comment on above: Performed By: #### C VDTBH #### [facility] [address] [place] [address] Dr. Saskia Lai Chloride [Moles/Vol] 104 mmol/L Normal 98-107 [facility] Comment on above: Performed By: #### C VDTBH #### [facility] [address] [place] [address] Dr. Saskia Lai CO2 [Moles/Vol] 26.8 mmol/L Normal 21.0-32.0 [facility] Comment on above: Performed By: #### C VDTBH #### [facility] [address] [place] [address] Dr. Saskia Lai Creatinine [Mass/Vol] 1.18 mg/dL Normal 0.70-1.30 [facility] Comment on above: Performed By: #### C VDTBH #### [facility] [address] [address] [address] Saskia Lai EGFR-AF KAZAKH >60 Normal >=60 [facility] Comment on above: Performed By: #### C VDTBH #### [facility] [address] [address] [address] Saskia Lai EGFR-NON AF KAZAKH 60 mL/min/1.73m2 Normal >=60 [facility] Comment on above: Performed By: #### C VDTBH #### [facility] [address] [address] [address] Saskia Lai Glucose [Mass/Vol] 102 mg/dL Normal 74-106 [facility] Comment on above: Performed By: #### C VDTBH #### [facility] [address] [place] [address] Dr. Saskia Lai Potassium [Moles/Vol] 4.4 mmol/L Normal 3.5-5.1 [facility] Comment on above: Performed By: #### C VDTBH #### [facility] [address] [address] [address] Saskia Lai Sodium [Moles/Vol] 137 mmol/L Normal 136-145 [facility] Comment on above: Performed By: #### C VDTBH #### [facility] [address] [address] [address] Saskia Lai Urea nitrogen [Mass/Vol] 32.0 mg/dL Critically high 7.0-18.0 [facility] Comment on above: Performed By: #### C VDTBH #### [facility] [address] [address] [address] Saskia Lai Urea nitrogen/Creatinine [Mass ratio] 27.1 mg/mg Normal [facility] Comment on above: Performed By: #### C VDTBH #### [facility] [address] [address] [address] Saskia Lai PROTIMEon 01-08-2022 INR Coag (PPP) [Relative time] 1.28 {INR} Normal [facility] Comment on above: Performed By: #### C VDTBH #### [facility] [address] [place] [address] Dr. Saskia Lai INR GUIDELINES SEE BELOW Normal [facility] Comment on above: Result Comment: GABI RED INR: 2.0 - 3.0 CONDITIONS NOT LISTED BELOW 2.5 - 3.5 FOR PROSTHETIC HEART VALVE REPLACEMENT 2.5 - 3.5 RECURRENT THROMBOSIS Performed By: #### C VDTBH #### [facility] [address] [place] [address] Dr. Saskia Lai PT Coag (PPP) [Time] 13.6 s Critically high 9.0-11.6 [facility] Comment on above: Performed By: #### C VDTBH #### [facility] [address] [place] [address] Dr. Saskia Lai CBC AUTO DIFFon 01-07-2022 BASO # 0.0 103/ul Normal 0.0-0.1 [facility] Comment on above: Performed By: #### P OCGLUC #### [facility] [address] [place] [address] Dr. Saskia Lai Basophils/100 WBC (Bld) 0.1 % Critically low 0.2-2.0 [facility] Comment on above: Performed By: #### P OCGLUC #### [facility] [address] [place] [address] Dr. Saskia Lai EO # 0.0 103/ul Normal 0.0-0.7 [facility] Comment on above: Performed By: #### P OCGLUC #### [facility] [address] [place] [address] Dr. Saskia Lai Eosinophils/100 WBC (Bld) 0.0 % Critically low 0.9-7.0 [facility] Comment on above: Performed By: #### P OCGLUC #### [facility] [address] [place] [address] Dr. Saskia Lai Erythrocyte distribution width (RBC) [Ratio] 14.5 % Normal 11.0-15.0 [facility] Comment on above: Performed By: #### P OCGLUC #### [facility] [address] [address] [address] Saskia Lai Hematocrit (Bld) [Volume fraction] 34.4 % Critically low 42.0-54.0 [facility] Comment on above: Performed By: #### P OCGLUC #### [facility] [address] [address] [address] Saskia Lai Hemoglobin (Bld) [Mass/Vol] 11.6 g/dL Critically low 14.0-18.0 [facility] Comment on above: Performed By: #### P OCGLUC #### [facility] [address] [address] [address] Saskia Lai IG # 0.05 10e3/ul Critically high 0.00-0.03 [facility] Comment on above: Performed By: #### P OCGLUC #### [facility] [address] [place] [address] Dr. Saskia Lai IG % 0.3 % Normal 0.0-0.5 [facility] Comment on above: Performed By: #### P OCGLUC #### [facility] [address] [address] [address] Saskia Lai LYMPH # 0.9 103/ul Critically low 1.2-3.8 [facility] Comment on above: Performed By: #### P OCGLUC #### [facility] [address] [place] [address] Dr. Saskia Lai Lymphocytes/100 WBC (Bld) 6.2 % Critically low 20.5-60.0 [facility] Comment on above: Performed By: #### P OCGLUC #### [facility] [address] [place] [address] Dr. Saskia Lai MANUAL DIFF REQ NO Normal [facility] Comment on above: Performed By: #### P OCGLUC #### [facility] [address] [place] [address] Dr. Saskia Lai MCH (RBC) [Entitic mass] 29.7 pg Normal 25.9-34.0 [facility] Comment on above: Performed By: #### P OCGLUC #### [facility] [address] [address] [address] Saskia Lai MCHC (RBC) [Mass/Vol] 33.7 g/dL Normal 29.9-35.2 [facility] Comment on above: Performed By: #### P OCGLUC #### [facility] [address] [address] [address] Saskia Lai MCV (RBC) [Entitic vol] 88.0 fL Normal 80.0-94.0 [facility] Comment on above: Performed By: #### P OCGLUC #### [facility] [address] [address] [address] Saskia Lai MONO # 1.0 103/ul Critically high 0.3-0.8 [facility] Comment on above: Performed By: #### P OCGLUC #### [facility] [address] [place] [address] Dr. Saskia Lai Monocytes/100 WBC (Bld) 6.5 % Normal 1.7-12.0 [facility] Comment on above: Performed By: #### P OCGLUC #### [facility] [address] [address] [address] Saskia Lai NEUT # 12.9 103/ul Critically high 1.4-6.5 [facility] Comment on above: Performed By: #### P OCGLUC #### [facility] [address] [place] [address] Dr. Saskia Lai Neutrophils/100 WBC (Bld) 86.9 % Critically high 43.0-75.0 [facility] Comment on above: Performed By: #### P OCGLUC #### [facility] [address] [address] [address] Saskia Lai Platelet mean volume (Bld) [Entitic vol] 10.3 fL Normal 9.5-13.5 [facility] Comment on above: Performed By: #### P OCGLUC #### [facility] [address] [address] [address] Saskia Lai PLT 208 103/ul Normal 150-450 [facility] Comment on above: Performed By: #### P OCGLUC #### [facility] [address] [address] [address] Saskia Lai RBC 3.91 106/ul Critically low 4.70-6.10 [facility] Comment on above: Performed By: #### P OCGLUC #### [facility] [address] [address] [address] Saskia Lai WBC 14.9 103/ul Critically high 4.0-11.0 [facility] Comment on above: Performed By: #### P OCGLUC #### [facility] [address] [place] [address] Dr. Saskia Lai PROF CHEM 8 (BAS METB)on Anion gap [Moles/Vol] 10.7 mmol/L Normal [facility] Comment on above: Performed By: #### B MP #### [facility] [address] [place] [address] Dr. Saskia Lai Calcium [Mass/Vol] 8.9 mg/dL Normal 8.5-10.1 [facility] Comment on above: Performed By: #### B MP #### [facility] [address] [place] [address] Dr. Saskia Lai Chloride [Moles/Vol] 101 mmol/L Normal 98-107 [facility] Comment on above: Performed By: #### B MP #### [facility] [address] [place] [address] Dr. Saskia Lai CO2 [Moles/Vol] 27.9 mmol/L Normal 21.0-32.0 [facility] Comment on above: Performed By: #### B MP #### [facility] [address] [place] [address] Dr. Saskia Lai Creatinine [Mass/Vol] 1.17 mg/dL Normal 0.70-1.30 [facility] Comment on above: Performed By: #### B MP #### [facility] [address] [place] [address] Dr. Saskia Lai EGFR-AF KAZAKH >60 Normal >=60 [facility] Comment on above: Performed By: #### B MP #### [facility] [address] [address] [address] Saskia Lai EGFR-NON AF KAZAKH >60 Normal >=60 [facility] Comment on above: Performed By: #### B MP #### [facility] [address] [address] [address] Saskia Lai Glucose [Mass/Vol] 121 mg/dL Critically high 74-106 T [facility] Comment on above: Performed By: #### B MP #### [facility] [address] [address] [address] Saskia Lai Potassium [Moles/Vol] 4.5 mmol/L Normal 3.5-5.1 [facility] Comment on above: Performed By: #### B MP #### [facility] [address] [address] [address] Saskia Lai Sodium [Moles/Vol] 135 mmol/L Critically low 136-145 Th [facility] Comment on above: Performed By: #### B MP #### [facility] [address] [address] [address] Saskia Lai Urea nitrogen [Mass/Vol] 30.0 mg/dL Critically high 7.0-18.0 [facility] Comment on above: Performed By: #### B MP #### [facility] [address] [address] [address] Saskia Lai Urea nitrogen/Creatinine [Mass ratio] 25.6 mg/mg Normal [facility] Comment on above: Performed By: #### B MP #### [facility] [address] [address] [address] Saskia Lai PROTIMEon 01-07-2022 INR Coag (PPP) [Relative time] 1.21 {INR} Normal [facility] Comment on above: Performed By: #### P T #### [facility] [address] [address] [address] Saskia Lai INR GUIDELINES SEE BELOW Normal [facility] Comment on above: Result Comment: GABI RED INR: 2.0 - 3.0 CONDITIONS NOT LISTED BELOW 2.5 - 3.5 FOR PROSTHETIC HEART VALVE REPLACEMENT 2.5 - 3.5 RECURRENT THROMBOSIS Performed By: #### P T #### [facility] [address] [place] [address] Dr. Saskia Lai PT Coag (PPP) [Time] 12.9 s Critically high 9.0-11.6 [facility] Comment on above: Performed By: #### P T #### [facility] [address] [place] [address] Dr. Saskia Lai POINT OF CARE GLUCOSEon 12-09 Glucose [Mass/Vol] 114 mg/dL Critically high 74-106 [facility] Comment on above: Performed By: #### P OCGLUC #### [facility] [address] [place] [address] Dr. Saskia Lai Glucose [Mass/Vol] 104 mg/dL Normal 74-106 [facility] Comment on above: Performed By: #### P OCGLUC #### [facility] [address] [place] [address] Dr. Saskia Lai PROTIMEon 01-06-2022 INR Coag (PPP) [Relative time] 1.19 {INR} Normal [facility] Comment on above: Performed By: #### P T #### [facility] [address] [place] [address] Dr. Saskia Lai INR GUIDELINES SEE BELOW Normal [facility] Comment on above: Result Comment: GABI RED INR: 2.0 - 3.0 CONDITIONS NOT LISTED BELOW 2.5 - 3.5 FOR PROSTHETIC HEART VALVE REPLACEMENT 2.5 - 3.5 RECURRENT THROMBOSIS Performed By: #### P T #### [facility] [address] [place] [address] Dr. Saskia Lai PT Coag (PPP) [Time] 12.7 s Critically high 9.0-11.6 [facility] Comment on above: Performed By: #### P T #### [facility] [address] [place] [address] Dr. Saskia Lai Covid-19 PCR (CVDTB)on 12-08 SARS-CoV-2 (COVID-19) RNA TOSHA+probe Ql (Unsp spec) Not detected Normal NOT DETECTED [facility] Comment on above: Result Comment: This test is not yet approved or cleared by the [place] FDA. When there are no FDA-approved or cleared tests available, and other criteria are met, FDA can make tests available under an emergency access mechanism called an Emergency Use Authorization (EUA). The EUA for this test is supported by the [employer] [place] [employer] of Health and Human Service's (HHS's) declaration [...] SARS-CoV-2. Performed By: #### C VDTB #### [facility] [address] [place] [address] Dr. Saskia Lai CBC AUTO DIFFon 12-24-2021 BASO # 0.1 103/ul Normal 0.0-0.1 [facility] Comment on above: Performed By: #### C VDTBH #### [facility] [address] [place] [address] Dr. Saskia Lai Basophils/100 WBC (Bld) 1.2 % Normal 0.2-2.0 [facility] Comment on above: Performed By: #### C VDTBH #### [facility] [address] [place] [address] Dr. Saskia Lai EO # 0.2 103/ul Normal 0.0-0.7 [facility] Comment on above: Performed By: #### C VDTBH #### [facility] [address] [place] [address] Dr. Saskia Lai Eosinophils/100 WBC (Bld) 2.8 % Normal 0.9-7.0 [facility] Comment on above: Performed By: #### C VDTBH #### [facility] [address] [place] [address] Dr. Saskia Lai Erythrocyte distribution width (RBC) [Ratio] 14.4 % Normal 11.0-15.0 [facility] Comment on above: Performed By: #### C VDTBH #### [facility] [address] [place] [address] Dr. Saskia Lai Hematocrit (Bld) [Volume fraction] 40.5 % Critically low 42.0-54.0 [facility] Comment on above: Performed By: #### C VDTBH #### [facility] [address] [place] [address] Dr. Saskia Lai Hemoglobin (Bld) [Mass/Vol] 13.4 g/dL Critically low 14.0-18.0 [facility] Comment on above: Performed By: #### C VDTBH #### [facility] [address] [place] [address] Dr. Saskia Lai IG # 0.00 10e3/ul Normal 0.00-0.03 [facility] Comment on above: Performed By: #### C VDTBH #### [facility] [address] [place] [address] Dr. Saskia Lai IG % 0.0 % Normal 0.0-0.5 [facility] Comment on above: Performed By: #### C VDTBH #### [facility] [address] [place] [address] Dr. Saskia Lai LYMPH # 1.1 103/ul Critically low 1.2-3.8 [facility] Comment on above: Performed By: #### C VDTBH #### [facility] [address] [place] [address] Dr. Saskia Lai Lymphocytes/100 WBC (Bld) 19.5 % Critically low 20.5-60.0 [facility] Comment on above: Performed By: #### C VDTBH #### [facility] [address] [place] [address] Dr. Saskia Lai MANUAL DIFF REQ NO Normal [facility] Comment on above: Performed By: #### C VDTBH #### [facility] [address] [place] [address] Dr. Saskia Lai MCH (RBC) [Entitic mass] 29.6 pg Normal 25.9-34.0 [facility] Comment on above: Performed By: #### C VDTBH #### [facility] [address] [place] [address] Dr. Saskia Lai MCHC (RBC) [Mass/Vol] 33.1 g/dL Normal 29.9-35.2 [facility] Comment on above: Performed By: #### C VDTBH #### [facility] [address] [place] [address] Dr. Saskia Lai MCV (RBC) [Entitic vol] 89.4 fL Normal 80.0-94.0 [facility] Comment on above: Performed By: #### C VDTBH #### [facility] [address] [place] [address] Dr. Saskia Lai MONO # 0.4 103/ul Normal 0.3-0.8 [facility] Comment on above: Performed By: #### C VDTBH #### [facility] [address] [place] [address] Dr. Saskia Lai Monocytes/100 WBC (Bld) 6.7 % Normal 1.7-12.0 [facility] Comment on above: Performed By: #### C VDTBH #### [facility] [address] [place] [address] Dr. Saskia Lai NEUT # 4.0 103/ul Normal 1.4-6.5 [facility] Comment on above: Performed By: #### C VDTBH #### [facility] [address] [place] [address] Dr. Saskia Lai Neutrophils/100 WBC (Bld) 69.8 % Normal 43.0-75.0 [facility] Comment on above: Performed By: #### C VDTBH #### [facility] [address] [place] [address] Dr. Saskia Lai Platelet mean volume (Bld) [Entitic vol] 9.9 fL Normal 9.5-13.5 [facility] Comment on above: Performed By: #### C VDTBH #### [facility] [address] [address] [address] Saskia Lai PLT 228 103/ul Normal 150-450 [facility] Comment on above: Performed By: #### C VDTBH #### [facility] [address] [address] [address] Saskia Lai RBC 4.53 106/ul Critically low 4.70-6.10 [facility] Comment on above: Performed By: #### C VDTBH #### [facility] [address] [place] [address] Dr. Saskia Lai WBC 5.7 103/ul Normal 4.0-11.0 [facility] Comment on above: Performed By: #### C VDTBH #### [facility] [address] [place] [address] Dr. Saskia Lai PROF CHEM 8 (BAS METB)on Anion gap [Moles/Vol] 11.0 mmol/L Normal Th [facility] Comment on above: Performed By: #### P OCGLUC #### [facility] [address] [place] [address] Dr. Saskia Lai Calcium [Mass/Vol] 9.3 mg/dL Normal 8.5-10.1 [facility] Comment on above: Performed By: #### P OCGLUC #### [facility] [address] [place] [address] Dr. Saskia Lai Chloride [Moles/Vol] 102 mmol/L Normal 98-107 [facility] Comment on above: Performed By: #### P OCGLUC #### [facility] [address] [place] [address] Dr. Saskia Lai CO2 [Moles/Vol] 29.5 mmol/L Normal 21.0-32.0 [facility] Comment on above: Performed By: #### P OCGLUC #### [facility] [address] [place] [address] Dr. Saskia Lai Creatinine [Mass/Vol] 0.93 mg/dL Normal 0.70-1.30 [facility] Comment on above: Performed By: #### P OCGLUC #### [facility] [address] [address] [address] Saskia Lai EGFR-AF KAZAKH >60 Normal >=60 [facility] Comment on above: Performed By: #### P OCGLUC #### [facility] [address] [address] [address] Saskia Lai EGFR-NON AF KAZAKH >60 Normal >=60 [facility] Comment on above: Performed By: #### P OCGLUC #### [facility] [address] [address] [address] Saskia Lai Glucose [Mass/Vol] 97 mg/dL Normal 74-106 [facility] Comment on above: Performed By: #### P OCGLUC #### [facility] [address] [address] [address] Saskia Lai Potassium [Moles/Vol] 4.5 mmol/L Normal 3.5-5.1 [facility] Comment on above: Performed By: #### P OCGLUC #### [facility] [address] [address] [address] Saskia Lai Sodium [Moles/Vol] 138 mmol/L Normal 136-145 [facility] Comment on above: Performed By: #### P OCGLUC #### [facility] [address] [address] [address] Saskia Lai Urea nitrogen [Mass/Vol] 15.0 mg/dL Normal 7.0-18.0 [facility] Comment on above: Performed By: #### P OCGLUC #### [facility] [address] [address] [address] Saskia Lai Urea nitrogen/Creatinine [Mass ratio] 16.1 mg/mg Normal [facility] Comment on above: Performed By: #### P OCGLUC #### [facility] [address] [address] [address] Saskia Lai PROTIMEon 12-24-2021 INR Coag (PPP) [Relative time] 2.00 {INR} Normal [facility] Comment on above: Performed By: #### P T, PTT #### [facility] [address] [address] [address] Saskia Lai INR GUIDELINES SEE BELOW Normal [facility] Comment on above: Result Comment: GABI RED INR: 2.0 - 3.0 CONDITIONS NOT LISTED BELOW 2.5 - 3.5 FOR PROSTHETIC HEART VALVE REPLACEMENT 2.5 - 3.5 RECURRENT THROMBOSIS Performed By: #### P T, PTT #### [facility] [address] [address] [address] Saskia Lai PT Coag (PPP) [Time] 20.6 s Critically high 9.0-11.6 [facility] Comment on above: Performed By: #### P T, PTT #### [facility] [address] [address] [address] Saskia Lai PTTon 12-24-2021 aPTT Coag (Bld) [Time] 33.5 s Normal 22.3-36.2 [facility] Comment on above: Performed By: #### P T, PTT #### [facility] [address] [place] [address] CHEST W CONon [...] GERARDO AUGUSTIN Date: 2021-10-23 17:42 Normal [facility] PROF CHEM 8 (BAS METB)on Anion gap [Moles/Vol] 14.4 mmol/L Normal [facility] Comment on above: Performed By: #### P OCGLUC #### [facility] [address] [place] [address] Dr. Saskia Lai Calcium [Mass/Vol] 9.1 mg/dL Normal 8.5-10.1 [facility] Comment on above: Performed By: #### P OCGLUC #### [facility] [address] [place] [address] Dr. Saskia Lai Chloride [Moles/Vol] 102 mmol/L Normal 98-107 [facility] Comment on above: Performed By: #### P OCGLUC #### [facility] [address] [place] [address] Dr. Saskia Lai CO2 [Moles/Vol] 25.1 mmol/L Normal 21.0-32.0 [facility] Comment on above: Performed By: #### P OCGLUC #### [facility] [address] [place] [address] Dr. Saskia Lai Creatinine [Mass/Vol] 1.13 mg/dL Normal 0.70-1.30 [facility] Comment on above: Performed By: #### P OCGLUC #### [facility] [address] [place] [address] Dr. Saskia Lai EGFR-AF KAZAKH >60 Normal >=60 [facility] Comment on above: Performed By: #### P OCGLUC #### [facility] [address] [place] [address] Dr. Saskia Lai EGFR-NON AF KAZAKH >60 Normal >=60 [facility] Comment on above: Performed By: #### P OCGLUC #### [facility] [address] [place] [address] Dr. Saskia Lai Glucose [Mass/Vol] 82 mg/dL Normal 74-106 [facility] Comment on above: Performed By: #### P OCGLUC #### [facility] [address] [address] [address] Saskia Lai Potassium [Moles/Vol] 4.5 mmol/L Normal 3.5-5.1 [facility] Comment on above: Performed By: #### P OCGLUC #### [facility] [address] [address] [address] Saskia Lai Sodium [Moles/Vol] 137 mmol/L Normal 136-145 [facility] Comment on above: Performed By: #### P OCGLUC #### [facility] [address] [address] [address] Saskia Lai Urea nitrogen [Mass/Vol] 19.0 mg/dL Critically high 7.0-18.0 [facility] Comment on above: Performed By: #### P OCGLUC #### [facility] [address] [address] [address] Saskia Lai Urea nitrogen/Creatinine [Mass ratio] 16.8 mg/mg Normal [facility] Comment on above: Performed By: #### P OCGLUC #### [facility] [address] [address] [address] Saskia Hurley 08-12-2021 CARL Office Visit ([facility] ) -- REMI ZARCO ([id number]) 1945 M Date Time Provider Department 08/12/21 [...] (HCC) [M87.9] (more content not included)... Normal [facility] Dillon 08-01-2021 AVINASH Telephone ([facility]) -- REMI ZARCO ([id number]) 1945 M Date Time Provider Department 08/01/21 DARREL ALMENDAREZ During your visit today, we recorded the following information about you: Abilio Garza Pss 08/01/2021 8:47 AM Signed Pt called, wanted to know if Dr Almendarez or nurse could reach out to further advise of treatment plan. Pt states he was to hear back shortly after visit on 07/10. Abilio Garza Pss Lin Monge, CT 08/06/2021 1:59 PM [...] Fully Assessed Reason for Visit: Patient Question [5537] Patient Update [7354] Prescriptions as of 08/06/2021 - warfarin (COUMADIN) [...] [M21.07*07/10/2021 DJD (degenerative joint disease), ankle and bilyl*07/10/2021 Encounter Status:Closed by SCHAABILIO COHEN on 08/01/21 Normal [facility] CNOVon 07-10-2021 CNOV Office Visit ([facility] ) -- REMI ZARCO ([id number]) 1945 Date Time Provider Department 07/10/21 1:00 PM [...] hind foot All questions were answered. Remi Gurinder Zarco appeared to be well informed. Greater than 50% of the visit was spent face to face counseling and/or coordinating care for the patient. Darrel Almendarez DPM Referring Pro (more content not included)... Normal [facility] XR ANKLE 3V AP/LAT/OBL LTon 07-10-2021 XR [...] enthesophyte is seen IMPRESSION: Please see result Operations Support Representative: [place] Transcribe Date/Time: Jul 10 2021 1:13P Dictated by : MIRNA WRIGHT MD This examination was interpreted and the report reviewed and electronically signed by: MIRNA WRIGHT MD on Jul 10 2021 1:14PM EST [id number] Normal [facility] XR ANKLE GENERAL 3V AP/LAT/O BL LEFTon 07-10-2021 [facility] XR FOOT 3V AP/LAT/OBL LTon [...] formation is seen IMPRESSION: Please see result Operations Support Representative: PSCB Transcribe Date/Time: Jul 12 2021 11:11A Dictated by : MIRNA WRIGHT MD This examination was interpreted and the report reviewed and electronically signed by: MIRNA WRIGHT MD on Jul 12 2021 11:12AM EST [id number] Normal [facility] CNOVon 06-14-2021 CNOV Office Visit ([facility] ) -- REMI ZARCO ([id number]) 1945 M Date Time Provider Department 06/14/21 1:30 PM MANUEL SAUCEDO During your visit today, we recorded the following information about you: Manuel Saucedo, BOB 06/14/2021 1:59 PM Signed [facility] Department of Orthopedics [facility] Orthopedic Surgery Name: Remi Zarco Date [...] brought in radiographs and a CT from [place] which demonstrate a valgus tilt of the [...] fix heis shoulder before he left for [place]. Discussed Dr. Torres but he does not want to drive to [facility]. Suggested he see Dr. Almendarez to [...] Diagnoses:Ankle instabilit (more content not included)... Normal [facility] Vital Signs Date Time Vital Sign Value Performing Clinician Facility 02-24-2023 15:43-0500 Diastolic blood pressure 81 mm[Hg] MD Gil Gee Work Phone: [facility] 02-24-2023 15:43-0500 Heart rate 59 /min MD Gil Gee Work Phone: [facility] 02-24-2023 15:43-0500 Respiratory rate 16 /min MD Gil Gee Work Phone: [facility] 02-24-2023 15:43-0500 SaO2% (BldA) [Mass fraction] 95 % MD Gil Gee Work Phone: [facility] 02-24-2023 15:43-0500 Systolic blood pressure 148 mm[Hg] MD Gil Gee Work Phone: [facility] 02-24-2023 14:07-0500 Body temperature 97.3 [degF] MD Gil Gee Work Phone: [facility] 02-24-2023 14:07-0500 Inhaled oxygen flow rate 6 L/min MD Gil Gee Work Phone: [facility] 02-24-2023 12:55-0500 Body height 185.42 cm MD Gil Gee Work Phone: [facility] 02-24-2023 12:55-0500 Body mass index (BMI) [Ratio] 30.7 kg/m2 MD Gil Gee Work Phone: [facility] 02-24-2023 12:55-0500 Body weight 105.5 kg MD Gil Gee Work Phone: [facility] 11-09-2022 12:05-0400 Body height 182.88 cm Yolanda Somers Other [facility] Other 11-09-2022 12:05-0400 Body mass index (BMI) [Ratio] 31.08 kg/m2 Yolanda Somers Other [facility] Other 11-09-2022 12:05-0400 Body temperature 98.6 [degF] Yolanda Somers Other [facility] Other 11-09-2022 12:05-0400 Body weight 103.97 kg Yolanda Somers Other [facility] Other 11-09-2022 12:05-0400 Diastolic blood pressure 75 mm[Hg] Yolanda Somers Other [facility] Other 11-09-2022 12:05-0400 Respiratory rate 18 /min Yolanda Somers Other [facility] Other 11-09-2022 12:05-0400 SaO2% (BldA) [Mass fraction] 97 % Yolanda Somers Other [facility] Other 11-09-2022 12:05-0400 Systolic blood pressure 161 mm[Hg] Yolanda Somers Other [facility] Other Encounters Encounter Date Encounter Type Care Provider Facility Start: 09-22-2023 End: 09-22-2023 ambulatory PACO MULTANI Not Available Start: 07-27-2023 End: 07-27-2023 ambulatory SUMAN Gurinder HARPER Not Available Start: 07-10-2023 End: 07-10-2023 ambulatory [facility] Start: 05-22-2023 End: 05-22-2023 ambulatory [facility] Start: 05-22-2023 End: 05-22-2023 Follow-up encounter Darrel Rangel MD Work Phone: [facility] Medication Therapy Management Comment on above: Essential hypertensi on (Primary Dx); Persistent atrial fibrillation (CMS-HCC); care home (current) use of anticoagulants Start: 05-04-2023 End: 05-04-2023 ambulatory GIL GEE Not Available Start: 04-06-2023 End: 04-06-2023 ambulatory WILLIE ROSS Not Available Start: 04-03-2023 End: 04-03-2023 ambulatory [employer] [facility] Start: 04-03-2023 End: 04-03-2023 Follow-up encounter Darrel Rangel MD Work Phone: [facility] Medication Therapy Management Comment on above: Essential hypertensi on (Primary Dx); Persistent atrial fibrillation (CMS-HCC); care home (current) use of anticoagulants Start: 03-24-2023 End: 03-24-2023 ambulatory PACO Fair MULTANI Not Available Start: 03-11-2023 Telephone encounter Jobst Serv ice Work Phone: [facility] Medication Therapy Management Start: 03-10-2023 Telephone encounter Davion duke RN [facility] Cardiology Comment on above: Cardiac Clearance Start: 03-04-2023 End: 03-04-2023 ambulatory WILLIE ROSS Not Available Start: 02-24-2023 End: 02-24-2023 ambulatory Willie Ross Facility:[facility] Start: 02-24-2023 End: 02-24-2023 Admission to same day surgery center MD Gil Gee Work Phone: [facility] Start: 02-24-2023 End: 02-24-2023 ambulatory MD Gil Gee Work Phone: [facility] Work Phone: Start: 02-10-2023 End: 02-10-2023 ambulatory Willie Muellerjagheather Facility:[facility] Start: 02-10-2023 End: 02-10-2023 ambulatory MD Gil Gee Work Phone: [facility] Work Phone: Start: 02-10-2023 End: 02-10-2023 Patient encounter procedure MD Gil Gee Work Phone: [facility] Work Phone: Start: 02-04-2023 End: 02-04-2023 ambulatory WILLIE ROSS Not Available Start: 11-09-2022 End: 11-09-2022 ambulatory Yolanda Somers Other [facility] Other Start: 11-09-2022 Office outpatient ne w 10 minutes Yolanda Somers [facility] Start: 07-23-[address] [...] Start: 01-05-2022 Encounter for preprocedural laboratory examination [facility] Start: 01-02-2022 End: 01-03-2022 ambulatory LEXI SNOW Facility:[facility] Start: 01-02-2022 End: 01-03-2022 Encounter for preprocedural laboratory examination LEXI SNOW Facility:[facility] Start: 12-27-2021 Encounter for preprocedural cardiovascular examination [facility] Start: 12-27-2021 Encounter for preprocedural laboratory examination [facility] Start: 12-24-2021 End: 10-19-2022 ambulatory LEXI SNOW Facility:[facility] Start: 12-24-2021 End: 12-25-2021 Encounter for preprocedural cardiovascular examination [facility] Facility:[facility] Start: 10-23-2021 End: 10-24-[address] [...] of left ankle Start: 07-10-2021 ambulatory Wanda wilson RT(R) Radiology Comment on above: Radio Gen RMP Start: 07-10-2021 End: 07-10-2021 Patient encounter procedure Wanda Gandhi RT(R) [facility] Comment on above: DJD (degenerative adelaida int disease), ankle and foot, left (Primary Dx); Acquired valgus deformity of left ankle; PTTD (posterior tibial tendon dysfunction); Difficulty walking Start: 07-10-2021 End: 07-10-2021 Subsequent hospital visit by physician Jonel [facility] Radha Work Phone: Radiology Comment on above: Left ankle pain, uns pecified chronicity [M25.572] Start: 06-14-2021 End: 06-14-2021 Patient encounter procedure Manuel Saucedo DPM Work Phone: Orthopaedics Comment on above: 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 (Primary Dx); Ankle instability, left; Chronic pain of left ankle Start: 07-13-2017 Patient encounter status Davion gonzales RN [employer] Procedures Date Procedure Procedure Detail Performing [...] DPM Work Phone: Start: 04-25-2021 Colonoscopy Davion Renetta Mccarthy Start: 05-13-2018 H/O: artificial joint Status post replacement of left shoulder joint Manuel Saucedo DPM Work Phone: Plan of Treatment Date Care Activity Detail Author Start: 04-25-2026 Screening for malignant neoplasm of colon Colonoscopy [facility] Start: 12-20-2023 Adult BMI Screening Adult BMI Screen ing [facility] Start: 12-20-2023 Tobacco Screening Tobacco Screening [facility] Start: 07-10-2023 End: 07-10-2023 Follow-up encounter 07/10/2023 8:00 AM EDT Follow Up Anticoagulation [facility] Medication Therapy Management [address] [place] [address] Darrel Rangel MD [employer], [address] [place] [address] [facility] Medication Therapy Management Start: 05-22-2023 End: 05-22-2023 Follow-up encounter 05/22/2023 8:00 AM EDT Follow Up Anticoagulation [facility] Medication Therapy Management [address] [facility] [address] Darrel Rangel MD [employer] [place] [address] [facility] Medication Therapy Management Start: 04-03-2023 End: 04-03-2023 Follow-up encounter 04/03/2023 8:00 AM EST Follow Up Anticoagulation [facility] Medication Therapy Management [address] [place] [address] Darrel Rangel MD [facility] [facility], [address] [place], [place] [id number] [phone] [facility] Medication Therapy Management Start: 02-24-2023 End: 02-24-2023 [facility] Start: 11-07-2021 Influenza vaccination INFLUENZA (Sea son Ended) [facility] Start: 04-06-2021 DIABETES SCREEN DIABETES SCREEN [facility] Start: 03-09-2021 ADVANCE DIRECTIVE DISCUSSION ADVANCE DIRECTIVE DISCUSSION [facility] Start: 2010 Fall Risk Screening Fall Risk Screen ing [facility] Start: 2010 PNEUMOCOCCAL: 65+ (1 - PCV) PNEUMOCOCCAL: 65+ (1 - PCV) [facility] Start: 2010 PNEUMOVAX AGE 65 AND OVER WITH 5YR LOOKBACK (#1) PNEUMOVAX AGE 65 AND OVER WITH 5YR LOOKBACK (#1) [facility] Start: 06-07-1995 SHINGRIX VACCINE (1 of 2) SHINGRIX VACCINE (1 of 2) [facility] Start: 1964 DTaP,Tdap and Td Vaccines (1 - Tdap) DTaP,Tdap and Td Vaccines (1 - Tdap) [facility] Start: 1964 Urine microalbumin profile DTAP,TDAP,TD (1 - Tdap) [facility] Start: 06-07-1963 Adult BMI Follow Up Plan Adult BMI Follow Up Plan [facility] Start: 06-07-1963 HEPATITIS C SCREENING HEPATITIS C SC KODY [facility] Start: 1957 Adult depression screening assessment DEPRESSION SCREENING [facility] Start: 1945 Medicare Annual Wellness Visit Medicare Annual Wellness Visit [facility] End: 09-11-2022 Mri any jt lower extrem w/o contrast matrl MRI ANKLE WO IVCON LT Radiology Routine Osteonecrosis (HCC) 1 Occurrences starting 08/12/2021 until 09/11/2022 [facility] Work Phone: Comment on above: 1 Occurrences starti ng 08/12/2021 until 09/11/2022 Patient referral [facility] Work Phone: XR FOOT GENERAL 3V AP/LAT/OBL LEFT XR FOOT GENERAL 3V AP/LAT/OBL LEFT Radiology Routine DJD (degenerative joint disease), ankle and foot, left 07/10/2021 1:07 PM EDT [facility] Work Phone: [facility] Immunizations Immunization Date Immunization Notes Care Provider Fa cility 11-29-2021 COVID-19 (Pfizer) Bivalent Booster, Age 12Y+ MD Gil Gee Work Phone: [facility] 07-30-2021 COVID-19 (Pfizer) MD Gil osman Work Phone: [facility] 12-26-2020 COVID-19 (Pfizer) MD Gil osman Work Phone: [facility] 05-21-2020 COVID-19 (Pfizer) MD Gil osman Work Phone: [facility] 04-30-2020 COVID-19 (Pfizer) MD Gil osman Work Phone: [facility] Payers Date Payer Category Payer Self-pay [id number] 2019 Unknown MMO MMO MEDICARE SUPPLEMENT [id number] 2019-Present [phone] [address] [place] [address] Indemnity [id number] 2010 Unknown ANTHEM BLUE CARD TRADITIONAL OOS [id number] 2010-Present [phone] [address] [place] [address] Indemnity [id number]. [id number] 2010 Unknown [id number] [id number]. [id number] 2004 Medicare MEDICARE MEDICAR E A AND B [id number] 2004-Present [phone] [address] [address] [place] [address] Medicare [id number]. [id number] 2002 Medicare MEDICARE MEDICAR E PART A & B [id number] 2002-Present [phone] [address] [place] [address] [id number]. [id number] 1959 Medicare [id number] 1959 Unknown [id number] 1959 Unknown [id number] 1945 Unknown [id number] .[id number] 1945 Unknown [id number] .840.1.769036.3.579.2.593 1945 Unknown [id number] 2.16840.1.745581.3.579.2.593 1945 Unknown [id number] .16.840.1.563916.3.579.2.593 1945 Unknown [id number] 2.16.840.1.841907.3.579.2.593 1945 Unknown [id number] 2.16.840.1.820561.3.579.2.593 1945 Unknown [id number] 2.16.840.1.666737.3.579.2.593 1945 Unknown [id number] 2.16.840.1.110717.3.579.2.593 1945 Unknown [id number] 2.16.840.1.895846.3.579.2.593 1945 Unknown [id number] 2.16.840.1.183055.3.579.2.593 1945 Unknown [id number] 2.16.840.1.970414.3.579.2.593 1945 Unknown [id number] 2.16.840.1.070454.3.579.2.1286 1945 Unknown [id number] 2.16.840.1.695108.3.579.2.1286 1945 Unknown [id number] 2.16840.1.608139.3.579.2.1286 1945 Unknown [id number] 2.16.840.1.624380.3.579.2.1259 1945 Unknown [id number] 2.16840.1.271232.3.579.2.1259 1945 Unknown [id number] 2.16.840.1.414855.3.579.2.1259 1945 Unknown [id number] 2.16.840.1.168430.3.579.2.1259 1945 Unknown [id number] 2.16.840.1.727177.3.579.2.1259 1945 Unknown [id number] 2.16.840.1.376749.3.579.2.1259 1945 Unknown [id number] 2.16.840.1.824607.3.579.2.1259 Unknown [id number] 2.16.840.1.582672.3.579.2.531 Unknown [id number] 2.16.840.1.134106.3.579.2.531 Social History Date Type Detail Facility Start: 05-21-2015 End: 05-02-2022 Tobacco smoking status NHIS Ex-smoker [facility] End: 03-09-1988 History of tobacco use Current smoker [facility] End: 03-09-1988 History of tobacco use Cigarette Smoker [facility] Start: 05-21-2015 End: 04-19-2020 Cigarettes smoked current (pack per day) - Reported 1 [facility] Start: 05-21-2015 End: 05-02-2022 Tobacco use and exposure Smokeless tobacco non-user [facility] Start: 03-26-2018 End: 12-19-2022 Alcohol intake Current drinker of alcohol (finding) [facility] Start: 03-26-2018 History SDOH Alcohol Comment rare [facility] Start: 1945 Sex Assigned At Not on file [facility] Start: 06-04-2021 End: 08-12-2021 Exposure to SARS-CoV-2 (event) Not sure [facility] Start: 04-19-2020 End: 12-19-2022 Sex Assigned At [facility] Start: 1945 Sex Assigned At Male F [facility] Adolescent depressio n screening assessment 0 [facility] Start: 01-05-2017 Alcohol Comment drinks occasionally [facility] Medical Equipment Procedure Code Equipment Code Equipment Origin al Text Equipment Identifier Dates Head Rsp 36mm Neutral Glenoid Retain Screw - [id number] Start: 04-02-2018 Insert Rsp Djo Surgical Standard Hxe+ Socket Sterile Humeral - [id number] Start: 04-02-2018 Stem Altivate Dj o Surgical 14 Standard 108mm Humeral Sterile Shoulder - [id number] Start: 04-02-2018 Baseplate Rsp P2 30mm Glenoid Sterile - [id number] Start: 04-02-2018 Screw Rsp 5mm 26 mm Bone Lock Glenoid Baseplate Shoulder - [id number] Start: 04-02-2018 Screw Rsp 5mm 30 mm Bone Lock Glenoid Baseplate Shoulder - [id number] Start: 04-02-2018 Screw Rsp 5mm 26 mm Bone Lock Glenoid Baseplate Shoulder - [id number] Start: 04-02-2018 Screw Rsp 5mm 18 mm Bone Lock Glenoid Baseplate Shoulder - [id number] Start: 04-02-2018 Goals Date Patient Goal Desired Activity /State Clinical Notes 06-14-2021 to 05-22-2023 Irene Boland [facility] - 05/22/2023 8:00 AM Chrissy Boland [facility] - 04/03/2023 8:00 AM ESTTelephone Encounter - Lizzette Mcnulty - 03/11/2023 8:27 AM EST Note Date & Type Note Facility 05-22-2023 History of Presen t illness Narrative 15 minute [id number] follow-up anticoagulation appointment. INR performed in office [...] bleeding/bleeding that persists or worsens. Irene Boland [facility] 05/22/23 0805 documented in this encounter [facility] 04-03-2023 History of Presen t illness Narrative 15 minute [id number] follow-up anticoagulation appointment. INR performed in office [...] bleeding/bleeding that persists or worsens. Irene Boland [facility] 04/03/23 0807 documented in this encounter [facility] 03-11-2023 Miscellaneous Notes Patient called requesting a refill of his warfarin 4 mg tablets for [address] [facility] mail order. Last saw his referring provider 12/19/22. Noted. Refill sent to [facility] as requested for warfarin 4 mg tabs. Last OV: 12/19/22 documented in this encounter [facility] 03-11-2023 Telephone encounter Note Patient called requesting a refill of his warfarin 4 mg tablets for [address] [facility] mail order. Last saw his referring provider 12/19/22. [facility] 03-11-2023 Telephone encounter Note Noted. Refill sent to [facility] as requested for warfarin 4 mg tabs. Last OV: 12/19/22 [facility] 03-10-2023 Miscellaneous Notes ----- Message from Delicia Greer MD sent at 03/09/2023 4:58 PM EST ----- Okay to proceed with low risk ----- Message ----- From: Davion Jackson RN Sent: 02/09/2023 9:37 AM EST To: MD JUDITH Santos ----- Message ----- From: Winifred Melissa RPH Sent: 02/06/2023 4:00 PM EST To: [facility] Clinical Staff Clearance received 02/06/23 from Romel via [facility] [place] documented in this encounter [facility] 03-10-2023 Telephone encounter Note ----- Message from Delicia Greer MD sent at 03/09/2023 4:58 PM EST ----- Okay to proceed with low risk ----- Message ----- From: Davion Jackson RN Sent: 02/09/2023 9:37 AM EST To: MD JUDITH Santos ----- Message ----- From: Winifred Melissa [facility] Sent: 02/06/2023 4:00 PM EST To: [facility] Clinical Staff Clearance received 02/06/23 from Romel via [facility] [place] [facility] 11-09-2022 Evaluation note Encounter Date Diagnosis Assessment [...] Nov, Surgical wound present (ICD-10 - T14.8XXA) [facility] Other 04-05-2023 NotePROCEDURE: XR FOOT LT MIN [...] Electronically authenticated by: YOU NEWELL Date: 2022-06-11 14:[facility] NotePROCEDURE: XR FOOT LT MIN 3 [...] Electronically authenticated by: GERARDO AUGUSTIN Date: 2022-04-08 11:49[facility]01-31-2023 NotePROCEDURE: XR FOOT LT MIN 3 [...] Electronically authenticated by: GERARDO AUGUSTIN Date: 2022-04-08 11:49[facility]12-27-2022 NotePROCEDURE: XR FOOT LT MIN 3 [...] Electronically authenticated by: YOU NEWELL Date: 2022-03-04 16:58[facility]12-14-2022 NotePROCEDURE: XR FOOT LT MIN 3 [...] debbie have been removed. Electronically authenticated by: GERRADO AUGUSTIN Date: 2022-02-19 09:16[facility]11-30-2022 NotePROCEDURE: XR FOOT LT MIN 3 [...] Electronically authenticated by: GERARDO AUGUSTIN Date: 2022-02-05 06:48[facility]10-31-2022 NotePROCEDURE: XR FOOT LT 2V COMPARISON: 01/24/2021 HISTORY: Pain FINDINGS: 2 minute 27 seconds of fluoroscopy. 57 images. Fluoroscopic images demonstrate triple arthrodesis with posterior calcaneal osteotomy and subtalar fusion. Placement of a wedge spacer in the medial cuneiform. IMPRESSION: Images from triple arthrodesis Electronically authenticated by: YOU NEWELL Date: 2022-01-06 15:43[facility]10-31-2022 NotePROCEDURE: XR FOOT LT MIN 3 [...] Electronically authenticated by: YOU NEWELL Date: 2022-01-06 13:01[facility]10-31-2022 NotePROCEDURE: XR FOOT LT MIN 3 [...] Electronically authenticated by: YOU NEWELL Date: 2022-01-06 13:01[facility]2022 NoteHNO ID: [id number] Author: Darrel Almendarez DPM Service: ? Author [...] counseling and/or coordinating care for the patient. [facility]UPINDER [facility]Ohio[facility]2022 History of Present illness Narrative* Darrel [...] patient. Darrel Almendarez DPM [facility]2022 NoteHNO ID: [id number] Author: Darrel Almendarez DPM Service: ? Author [...] counseling and/or coordinating care for the patient. BHUPINDER FerrerOhioHealth [facility]field Hospital05-04-2022 History of Present illness Narrative* Darrel Almendarez [...] patient. Darrel Almendarez DPM documented in [facility] encounter[facility]-2022 NoteHNO ID: [id number] Author: RT Lorenzo(R) Service: ? Author Type: [...] BY: RT Lorenzo(R) July 10, 2021 12:44 PMCOhioHealth [facility]field Hospital05-04-2022 History of Present illness Narrative* RT [...] 10, 2021 12:44 PM documented in [facility] encounter[facility]-08-2022 NoteHNO ID: [id number] Author: Manuel Saucedo DPM Service: ? Author Type: Physician Type: Progress Notes Filed: 06/14/2021 1:59 PM Note Text: [facility] Department of Orthopedics [facility] Orthopedic Surgery Name: Remi Zarco Date [...] brought in radiographs and a CT from [place] which demonstrate a valgus tilt of the [...] fix heis shoulder before he left for [place]. Discussed Dr. Torres but he does not want to drive to [facility]. Suggested he see Dr. Almendarez to [...] problem and decision planning for surgical invention BHUPINDER LovelaceOhioHealth [facility]04-08-2022 History of Present illness Narrative* Manuel Saucedo DPM - 06/14/2021 1:53 PM EDT [facility] Department of Orthopedics [facility] Orthopedic Surgery Name: Remi Zarco Date [...] brought in radiographs and a CT from [place] which demonstrate a valgus tilt of the [...] fix heis shoulder before he left for [place]. Discussed Dr. Torres but he does not want to drive to [facility]. Suggested he see Dr. Almendarez to [...] invention Manuel Saucedo DPM [facility]* Diagnosis Acquired valgus deformity of left ankle- Primary Ankle instability, left Chronic pain of left ankle [facility]* Diagnosis DJD (degenerative joint disease), ankle and foot, left- Primary Acquired valgus deformity of left ankle PTTD (posterior tibial tendon dysfunction) Other disorders of synovium, tendon, and bursa Difficulty walking Difficulty in walking documented in this encounter [facility]* Diagnosis Left ankle pain, unspecified chronicity DJD (degenerative joint disease), ankle and foot, left [facility]* Diagnosis DJD (degenerative joint disease), ankle and foot, left- Primary Osteonecrosis (HCC) Aseptic necrosis of bone, site unspecified PTTD (posterior tibial tendon dysfunction) Other disorders of synovium, tendon, and bursa Acquired valgus deformity of left ankle Difficulty walking Difficulty in walking Ankle instability, left Chronic pain of left ankle documented in this encounter [facility] noteNo assessment information availableAdena Pike Medical [facility] Work Phone: Evaluation note* Diagnosis sheet layer (current) use of anticoagulants Long-term (current) use of anticoagulants Essential hypertension Unspecified essential hypertension Persistent atrial fibrillation (CMS-HCC) Atrial fibrillation documented in this encounter [facility] System[facility]* Diagnosis Essential hypertension- Primary Unspecified essential hypertension Persistent atrial fibrillation (CMS-HCC) Atrial fibrillation sheet layer (current) use of anticoagulants Long-term (current) use of anticoagulants documented in this encounter [facility] SystemHistory general Narrative - Reported* Type Description Date Medical History HYPERTENSION Medical History HYPOTHYROIDISM Surgical History BILATERAL KNEE REPLACEMENT Surgical History LEFT SHOULDER REPLACEMENT Surgical History MULTIPLE SURGERIES ON BOTH SHOU LDER Surgical History BENIGN TUMOR UNDER LEFT EAR Surgical History LEFT FOOT PARTIAL FUSION Hospitalization History SEE ABOVE [facility] Other Hospital Discharge instructions Additional Instructions Apply ointment. Shower tomorrow. Restart coumadin ..[facility] Work Phone: InstructionsNot on filedocumented in this encounter [facility] SystemInstructionsNot on filedocumented in this encounter [facility] SystemInstructionsNot on filedocumented in this encounter [facility] CenterReason for referral (narrative)* Diagnostic Procedure Only (Routine) - Closed Specialty Diagnoses / Procedures Referred By Johnac t Referred To Contact XR IMAGING Diagnoses DJD (degenerative joint disease), ankle and foot, left Procedures XR FOOT GENERAL 3V AP/LAT/OBL LEFT RADEX FOOT COMPLETE MINIMUM 3 VIEWS Darrel Almendarez DPM [address] [place] [address] Xr Imaging Referral ID Status Reason Start Date Expiration Date V isits Requested Visits Authorized [id number] Closed Auto-Generate d Referral 07/10/2021 08/09/2022 1 1 [facility] for referral (narrative)* Diagnostic Procedure Only (Routine) - Closed Specialty Diagnoses / Procedures Referred By Contac t Referred To Contact XR IMAGING Diagnoses DJD (degenerative joint disease), ankle and foot, left Procedures XR FOOT GENERAL 3V AP/LAT/OBL LEFT RADEX FOOT COMPLETE MINIMUM 3 VIEWS Darrel Almendarez DPM [address] [place] [address] Xr Imaging Referral ID Status Reason Start Date Expiration Date V isits Requested Visits Authorized [id number] Closed Auto-Generate d Referral 07/10/2021 08/09/2022 1 1 * Diagnostic Procedure Only (Routine) - Closed Specialty Diagnoses / Procedures Referred By Mumtaz t Referred To Contact XR IMAGING Diagnoses Left ankle pain, unspecified chronicity Procedures XR ANKLE GENERAL 3V AP/LAT/OBL LEFT RADEX ANKLE COMPLETE MINIMUM 3 VIEWS Darrel Almendarez DPM [address] [place] [address] Xr Imaging Referral ID Status Reason Start Date Expiration Date V isits Requested Visits Authorized [id number] Closed Auto-Generate d Referral 06/28/2021 07/28/2022 1 1 [facility] for visit Narrative* Diagnostic Procedure Only (Routine) - Closed Specialty Diagnoses / Procedures Referred By Mumtaz bray Referred To Contact XR IMAGING Diagnoses Left ankle pain, unspecified chronicity Procedures XR ANKLE GENERAL 3V AP/LAT/OBL LEFT RADEX ANKLE COMPLETE MINIMUM 3 VIEWS Darrel Almendarez DPM [address] [place] [address] Xr Imaging Referral ID Status Reason Start Date Expiration Date V isits Requested Visits Authorized [id number] Closed Auto-Generate d Referral 06/28/2021 07/28/2022 1 1 [facility] Advance Directives No Advanced Directives Records FoundDocuments on File Type Date Recorded 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 Advance Directive(s) 04/02/2018 11:18 AM Advance Directive(s) 03/26/2018 1:54 PM Advance Directive(s) 03/22/2018 10:08 AM Documents on File Type Date Recorded 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 anation Advance Directive(s) 04/02/2018 11:18 AM Advance Directive(s) 03/26/2018 1:54 PM Advance Directive(s) 03/22/2018 10:08 AM Advance Directive Response Recorded Date/ Time Advance Directives No May 27, 2 022 8:15am Reason for Referral Specialty Diagnoses / Procedures Referred By Mumtaz bray Referred To Contact MR IMAGING Diagnoses Osteonecrosis (HCC) Procedures MRI ANKLE WO IVCON LT MRI ANY JT LOWER EXTREM W/O CONTRAST MATRL Darrel Almendarez DPM [address] [place] [address] Mr Imaging Referral ID Status Reason Start Date Expiration Date Visits Requested Visits Authorized [id number] Pending Review Auto-Generat ed Referral 08/12/2021 09/11/2022 [...] or prosecute any alcohol or drug abuse patient.[facility] CenterIn the event this information is protected by the Federal Confidentiality of Alcohol and Drug Abuse Patient Records regulations: The Federal rules restrict any use of the information to criminally investigate or prosecute any alcohol or drug abuse patient.[facility] CenterIn the event this information is protected by the Federal Confidentiality of Alcohol and Drug Abuse Patient Records regulations: The Federal rules restrict any use of the information to criminally investigate or prosecute any alcohol or drug abuse patient.[facility] CenterIn the event this information is protected by the Federal Confidentiality of Alcohol and Drug Abuse Patient Records regulations: The Federal rules restrict any use of the information to criminally investigate or prosecute any alcohol or drug abuse patient.[facility] CenterIn the event this information is protected by the Federal Confidentiality of Alcohol and Drug Abuse Patient Records regulations: The Federal rules restrict any use of the information to criminally investigate or prosecute any alcohol or drug abuse patient.[facility] Reason for Visit (unrecogniz ed section and content) Reason Comments Pain Reason Comments Radio Gen RMP Reason Comments New Pain Reason Comments Established Patient Follow Up Pain Reason Onset Date Comments Cardiac Clearance 03/10/2023 Care Teams (unrecognized sec tion and content) Hostess Cashier Relationship Specialty Start Date End Date Gil Gee [address] [place] [address] PCP - General Family Practice 02/25/18 Hostess Cashier Relationship Specialty Start Date End Date Gil Gee [address] [place] [address] PCP - General Family Practice 02/25/18 Hostess Cashier Relationship Specialty Start Date End Date Gil Gee [address] [place] [address] PCP - General Family Practice 02/25/18 Hostess Cashier Relationship Specialty Start Date End Date Gil Gee [address] [place] [address] PCP - [facility] Practice 02/25/18 Hostess Cashier Relationship Specialty Start Date End Date Gil Gee [address] [place] [address] PCP - [facility] Practice 02/25/18 Team Status: Active Member Role Status Dates Gil Gee MD Primary Care Provider Active Team Status: Inactive Member Role Status Dates Willie Ross DO Attending Provider Active Gil Gee MD Primary Care Provider Active Hostess Cashier Relationship Specialty Start Date End Date Gil Gee MD [address] [place] [address] PCP General 12/09/16 Hostess Cashier Relationship Specialty Start Date End Date Gil Gee MD [address] [place] [address] PCP - General 12/09/16 (unrecognized sect ion and content) No Status Records FoundNo Status Records FoundNo Status Records FoundNo Status Records FoundNo Status Records Found INFORMATION SOURCE (unrecogn ized section and content) DATE CREATED AUTHOR 08/13/2021 [facility] DATE CREATED AUTHOR AUTHOR'S ORGANIZ ATION 07/21/2022 [facility] DATE CREATED AUTHOR AUTHOR'S ORGANIZ ATION 04/17/2023 [facility] DATE CREATED AUTHOR AUTHOR'S ORGANIZ ATION 07/11/2023 [facility] DATE CREATED AUTHOR AUTHOR'S ORGANIZ ATION 09/26/2023 [facility] EPIC Goals (unrecognized section [...] BE BASED ON THE PRIMARY CLINICAL RECORDS. [facility] [employer] [facility]. provides no warranty or guarantee of the accuracy or completeness of information in this document.
== END 2023-10-14 13:03 | disposition home or self-care (01) ==
LOC: EC 13:02
PROVIDERS: PCP Family Medicine; Visit Provider Podiatrist Foot & Ankle Surgery
DX: M19.072 Primary osteoarthritis, left ankle and foot (principal); M79.672 Pain in left foot; Z98.890 Other specified postprocedural states
CPT/HCPCS: 73610; 73630

== ENCOUNTER 2023-11-18 12:52 | Outpatient (OUT) | payer MEDICARE, OTHER, BC, SELFPAY ==
--- NOTE | 2023-11-18 12:57 | CT_ITS ---
[address] [address] Patient Name: REMI ZARCO MRN: [id number] date: 1945 Sex: M Assigned Patient Location: CT Current Patient Location: LAB Accession/Order Number: [id number] Exam Date: 11/18/2023 13:02 Report Date: 11/18/2023 13:43 At the request of: LEXI HERNANDEZ Procedure: CT ankle LT wo con EXAMINATION: CT ankle LT wo con HISTORY: djd left ankle COMPARISON: 05/23/2023 TECHNIQUE: Multi-planar CT images were created without IV contrast. Dose reduction techniques were achieved by using automated exposure control and/or adjustment of mA and/or kV according to patient size and/or use of iterative reconstruction technique. FINDINGS: BONES: Stable postsurgical and degenerative changes. Posterior calcaneal osteotomy transfixed with 2 cannulated screws extending across the posterior talocalcaneal joint. Incomplete bony bridging with no interval bone formation. Fusion of the anterior talocalcaneal joint with a single screw. Incomplete bony bridging. Single surgical staple dorsal talonavicular joint with associated mechanical failure of the stable, unchanged. Wedge spacer medial cuneiform. Moderate to severe diffuse degenerative changes of the midfoot and hindfoot with joint space narrowing with bony remodeling marginal osteophyte formation and subchondral cystic changes. Total knee arthroplasty. SOFT TISSUES: Negative. No visible soft tissue swelling. EFFUSION: None visible. OTHER: Negative. CT/CT ankle LT wo con IMPRESSION: Stable postsurgical and degenerative changes with no new significant interval bone formation or evidence of bony bridging Electronically authenticated by: YOU NEWELL Date: 11/18/2023 13:43
== END 2023-11-18 12:53 | disposition home or self-care (01) ==
LOC: CT 12:52
PROVIDERS: PCP Family Medicine; Visit Provider Podiatrist Foot & Ankle Surgery
DX: M19.072 Primary osteoarthritis, left ankle and foot (principal); Z98.890 Other specified postprocedural states
CPT/HCPCS: 73700

== ENCOUNTER 2023-11-18 13:11 | Outpatient (OUT) | payer MEDICARE, OTHER, BC, SELFPAY ==
[2023-11-18 13:50] LABS: Basophils Absolute Auto 0.1 10^3/uL (0.0-0.1); Basophils Percent Auto 0.9 % (0.2-2.0); Eosinophils Absolute Auto 0.2 10^3/uL (0.0-0.7); Eosinophils Percent Auto 2.6 % (0.9-7.0); Immature Granulocytes Abs Auto 0.01 10^3/uL (0.00-0.03); Immature Granulocytes Pct Auto 0.2 % (0.0-0.5); Lymphocytes Absolute Auto 1.6 10^3/uL (1.2-3.8); Lymphocytes Percent Auto 23.7 % (20.5-60.0); Mean Corpuscular HGB Conc 34.2 g/dL (29.9-35.2); Mean Corpuscular Hemoglobin 30.1 pg (25.9-34.0); Mean Platelet Volume 9.9 fL (9.5-13.5); Monocytes Absolute Auto 0.4 10^3/uL (0.3-0.8); Monocytes Percent Auto 6.7 % (1.7-12.0); Neutrophils Absolute Auto 4.3 10^3/uL (1.4-6.5); Neutrophils Percent Auto 65.9 % (43.0-75.0); Platelet Count 221 10^3/uL (150-450); Red Blood Count 4.32 10^6/uL (4.70-6.10); White Blood Count 6.5 10^3/uL (4.0-11.0)
[2023-11-18 14:21] LABS: Free T4 1.29 ng/dL (0.76-1.46)
[2023-11-18 14:27] LABS: Alanine Aminotransferase 22 U/L (16-63); Albumin Globulin Ratio 1.1; Albumin Level 3.9 g/dL (3.4-5.0); Alkaline Phosphatase 56 U/L (46-116); Anion Gap 11.8; Aspartate Amino Transferase 18 U/L (15-37); BUN Creatinine Ratio 17.7; Bilirubin Direct 0.1 mg/dL (0.0-0.2); Bilirubin Total 0.7 mg/dL (0.2-1.0); Calcium 9.2 mg/dL (8.5-10.1); Carbon Dioxide 28.3 mmol/L (21.0-32.0); Chloride 100 mmol/L (98-107); Chol HDL Ratio 4.1; Cholesterol 188 mg/dL (<=200); Estimated GFR (African America >60 (>=60); Estimated GFR (Non-African Ame >60 (>=60); Free T3 2.69 pg/mL (2.18-3.98); Globulin 3.7 g/dL; Glucose 95 mg/dL (74-106); HDL Cholesterol 46 mg/dL (40-60); LDL Cholesterol Calculated 118.6 mg/dL; Potassium 4.1 mmol/L (3.5-5.1); Sodium 136 mmol/L (136-145); Thyroid Stimulating Hormone 4.228 uIU/mL (0.358-3.740); Total Protein 7.6 g/dL (6.4-8.2); Triglycerides 117 mg/dL (<=150); VLDL CHOLESTEROL 23.4 mg/dL
== END 2023-11-18 13:12 | disposition home or self-care (01) ==
LOC: LAB 13:11
PROVIDERS: PCP Family Medicine; Visit Provider Family Medicine
DX: E03.9 Hypothyroidism, unspecified (principal); E78.5 Hyperlipidemia, unspecified; Z79.899 Other long term (current) drug therapy
CPT/HCPCS: 36415; 80048; 80061; 80076; 84439; 84443; 84481; 85025

== ENCOUNTER 2023-11-18 13:41 | Outpatient (OUT) | payer MEDICARE, OTHER, BC, SELFPAY ==
--- OUTSIDE RECORDS SUMMARY | 2023-11-18 14:06 | XMS_ITS | CCD ---
Author Organization [facility] Care Team Providers Care Motor Grader Rough Grade Name Role Phone Gil Gee Primary Care Provider [phone] DEMETRIA, DR GERARDO Melendez Consulting Unavailable NADERER, [...] Attending Unavailable HIGHLANDER, LEXI Melendez Admitting Unavailable BARRETT, WALDEMAR Consulting Unavailable WEST, DR YOU Whiteside Consulting Unavailable NADERER, DR GIL Fairchild Attending Unavailable NADERER, DR GIL Fairchild Admitting Unavailable NADERER, DR GIL Fairchild Primary Care Unavailable NADERER, DR GIL Fairchild Consulting Unavailable MARY, LEXI Melendez Consulting Unavailable GUSTRACEY Consulting Unavailable STEPHON ., CHRISTINA ROJO Consulting Unavailable MARY, LEXI Melendez Procedure Practitioner Unava ilable SIMON, MACY Consulting Unavailable WEST, DR YOU Whiteside Consulting Unavailable NADERER, DR GIL Fairchild Primary Care Unavailable JOHANA, KIRSTIE Attending Unavailable JOHANA, KIRSTIE Admitting Unavailable JOHANA, KIRSTIE Consulting Unavailable Yolanda Somers Unavailable DO Willie Ross Attending Provider [phone] MD Gil Gee Primary Care Provider Gisela RIVERA, Gil Primary Care Provider [phone] Willie Ross Admitting Unavailable Murcek, Willie Attending Unavailable Naderer, Gil Primary Care Unavailable Murcek, Willie Attending Unavailable Naderer, Gil Primary Care Unavailable Murcek, Willie Admitting Unavailable MURCEK, WILLIE W Attending Unavailable MULTANI, PACO Fair Attending Unavailable MURCEK, WILLIE W Attending Unavailable NADERER, GIL Attending Unavailable MURCEK, WILLIE W Attending Unavailable PETITTI, SUMAN A Attending Unavailable MULTANI, PACO W Attending Unavailable NADERER, GIL Attending Unavailable SERVICE, JOBST Referring Unavailable NADERER, GIL Primary Care Unavailable SERVICE, JOBST Referring Unavailable NADERER, GIL Primary Care Unavailable SERVICE, JOBST Referring Unavailable NADERER, GIL Primary Care Unavailable SERVICE, JOBST Referring Unavailable NADERER, GIL Primary Care Unavailable SERVICE, JOBST Referring Unavailable NADERER, GIL Primary Care Unavailable Allergies Allergy Classification Reported Allergen(s) Allergy Type Date of Onset Reaction(s) Facility (13 sources) Morphine; Translations: [MORPHINE] Drug Allergy 7 Other: See Comments [facility] (2 sources) Morphine Drug Allergy [facility] Repository (3 sources) rosuvastatin; Translations: [rosuvastatin] Drug Allergy 3 Muscle Pain [facility] (1 source) Morphine Drug Allergy 3 [facility] Repository Medications Current Medications Medication [...] tablet Indications: Essential hypertension , Atrial fibrillation ([facility]) Take 1 tablet (25 mg total) by [...] daily. Been taking one every other day [place] 2-Jbj-Iye-Fish Oil (Fish Oil) 1,200 (144-216) mg Capsule (2 sources) Start: 3 take 1 capsule by mouth once daily in the morning [place] 2-Nzv-Fzx-Fish Oil (Fish Oil) 1,200 (144-216) mg Capsule Active 1 CAP PO Every morning February 10, 2023 12:00am omega 9-ihx-psn-fish oil 300-1,000 mg capsule (4 sources) omega 3-dha-epa- fish oil 300-1,000 mg capsule Take by mouth. 0 Active warfarin sodium 4 mg oral tablet (14 sources) Vitamin K Antagonist Start: take 0.5-1 tablets by mouth in the evening warfarin (COUMADIN) 4 mg tablet Indications: snf (current) use of anticoagulants , Essential hypertension [...] 2 mg mon and thurs Start: 04-07-2022 End: 03-11-2023 take 1 tablet [...] sources) Long-term current use of anticoagulant; Translations: [supervisor intermediates (current) use of anticoagulants] Onset: 07-30-2018 07-30-2018 [...] 01-14-2018 01-14-2018 Episodic Other aftercare (2 sources) supervisor intermediates (current) use of anticoagulants; Translations: [SHELTER CURRNT USE ANTICOAGULANTS] Onset: 07-30-2018 Episodic Other aftercare (4 sources) Other care home (current) drug therapy; Translations: [OTH APPLIED SCIENCE AND TECHNOLOGIES DEAN CURRENT DRUG THERAPY] Onset: 10-23-2021 Episodic Other aftercare (1 source) Encounter for therapeutic drug level monitoring; Translations: [Encounter for therapeutic drug level monitoring] Onset: 05-22-2023 Episodic Other circulatory disease (1 source) Other [...] time] 2.0 {INR} Abnormal 0.8 - 1.2 [facility] Interpretation and review of laboratory results Abnormal [facility] POCT Protime / INRon 024 INR Coag (PPP) [Relative time] 2.2 {INR} Abnormal 0.8 - 1.2 [facility] Interpretation and review of laboratory results Abnormal [facility] Activated partial thrombopla stin time (aPTT) in platelet poor plasma by coagulation aOrdered By: YOU RAMIREZ on 02-24-2023 aPTT Coag (PPP) [Time] 30.8 s 25.1-36.5 [facility] Comment on above: A hematocrit value g reater than 55% may lead to inaccurate results in coagulation testing. Patients having hematocrit values >55% require a special collection tube for coagulation studies. Please contact the laboratory at [phone] for redraw instructions. Coagulation Profileon 2022 aPTT Coag (Bld) [Time] 30.8 s Normal 25.1-36.5 [facility] Comment on above: Result Comment: A he matocrit value greater than 55% may lead to inaccurate results in coagulation testing. Patients having hematocrit values >55% require a special collection tube for coagulation studies. Please contact the laboratory at [phone] for redraw instructions. PERFORMED BY: [place] [address] [place] [address] PATHOLOGIST CONE TENDER QING BABB M.D. Performed By: #### P P #### [facility] [address] [place], [place] [id number] [facility] INR Coag (PPP) [Relative time] 1.2 {INR} Normal [facility] Comment on above: Result Comment: [...] 4.5 Performed By: #### P P #### [place] [id number] [facility] PT Coag (PPP) [Time] 13.9 s High 9.0-12.9 [facility] Comment on above: Result Comment: A he matocrit value greater than 55% may lead to inaccurate results in coagulation testing. Patients having hematocrit values >55% require a special collection tube for coagulation studies. Please contact the laboratory at [phone] for redraw instructions. Performed By: #### P P #### [facility] [address] [place], [place] [id number] [facility] INR in Platelet poor plasma by Coagulation assayOrdered By: YOU RAMIREZ on 02-24-2023 INR Coag (PPP) [Relative time] 1.2 {INR} [facility] Comment on above: INR Therapeutic [...] - 4.5 Jose 02-24-2023 L ------ Specimen: [id number] Received: 02/24/23 Status: MIK Whitmore Num: [id number] Spec Type: Surgical Subm Dr: Willie Ross DO Tissues: A Skin-Other than Cyst, tag, debridement or plastic repair (LT CHEEK) B Skin-Other than Cyst, tag, debridement or plastic repair (RT RESTORATION) Procedures: HE/6, Gross/Micro L4/2, FS HE/6 Age/ Patient Sex Location Account Attending Physician Remi Zarco 77/M PR [id number] Willie Ross DO SPEC NUM: [id number] RECD: 02/24/23 STATUS: MIK WHITMORE NUM: [id number] ARIAN: 02/24/[address]: Willie Ross DO ENTERED: 02/24/23 [facility] DR: SPEC TYPE: Surgical DEPT: S ORDERED: [...] evidently negative for malignancy B. Skin, right yarsanism, excision: - Benign seborrheic keratosis of the mixed reticular, mildly pigmented, and the usual plaque types - Incidental occasional mild colonizations of dermatophyte spores of note - Adequately removed for assessment, and no evidence of malignancy, squamous dysplasia, or nevoid atypia identified Specimen: [id number] Received: 02/24/23 Status: MIK Haim Num: [id number] Spec Type: Surgical Subm Dr: Willie Ross DO Tissues: A Skin-Other than Cyst, tag, debridement or plastic repair (LT CHEEK) B Skin-Other than Cyst, tag, debridement or plastic repair (RT RESTORATION) Procedures: HE/6, Gross/Micro L4/2, FS HE/6 Patient: Remi Zarco [id number] (Continued) Specimen: [id number] Received: 02/24/23 (Continued) Signed (signature on file) Oseas Lai MD 02/25/23 1518 Specimen: [id number] Received: 02/24/23 Status: MIK Whitmore Num: [id number] Spec Type: Surgical Subm Dr: Willie Ross DO Tissues: A Skin-Other than Cyst, tag, debridement or plastic repair (LT CHEEK) B Skin-Other than Cyst, tag, debridement or plastic repair (RT RESTORATION) Procedures: HE/6, Gross/Micro L4/2, FS HE/6 Patient: Remi Zarco [id number] (Continued) Specimen: [id number] Received: 02/24/23 (Continued) Clinical Information A) basal [...] the patient's name, date of and right yarsanism skin lesion is a 1.7 x 0.7 [...] tip B (more content not included)... Normal [facility] Prothrombin time (PT)Ordered By: YOU RAMIREZ on 02-24-2023 PT Coag (PPP) [Time] 13.9 s 9.0-12.9 [facility] Comment on above: A hematocrit value g reater than 55% may lead to inaccurate results in coagulation testing. Patients having hematocrit values >55% require a special collection tube for coagulation studies. Please contact the laboratory at [phone] for redraw instructions. Basic Metabolic Panelon 12-0 Anion gap [Moles/Vol] 8.9 mmol/L Normal 6.0-15.0 [facility] Comment on above: Performed By: #### C BC, BMP #### [facility] [address] [place] [address] [place] Calcium [Mass/Vol] 9.3 mg/dL Normal 8.6-10.3 [facility] Comment on above: Result Comment: PERF ORMED BY: [place] [address] PATHOLOGIST CONE TENDER QING BABB M.D. Performed By: #### C BC, BMP #### [facility] [address] [place] [address] [place] Chloride [Moles/Vol] 105 mmol/L Normal 98-107 [facility] Comment on above: Performed By: #### C BC, BMP #### [facility] [address] [place] [id number] [place] CO2 [Moles/Vol] 28.3 mmol/L Normal 21.0-31.0 [facility] Comment on above: Performed By: #### C BC, BMP #### [facility] [address] [place] [phone] [place] Creatinine [Mass/Vol] 1.19 mg/dL Normal 0.70-1.30 [facility] Comment on above: Performed By: #### C BC, BMP #### [facility] [address] [place] [id number] [place] GFR/1.73 sq M.predicted MDRD (S/P/Bld) [Vol rate/Area] mL/min/{1.73_m2} Normal [facility] Comment on above: Performed By: #### C BC, BMP #### [facility] [address] [place] [id number] [place] Glucose [Mass/Vol] 93 mg/dL Normal 70-100 [facility] Comment on above: Result Comment: [facility] Glucose Reference Range is dependent on time and content of last meal. Glucose of more than 200 mg/dL in a nonstressed, ambulatory subject supports the diagnosis of Diabetes Mellitus. ADA recommended reference range Performed By: #### C BC, BMP #### [facility] [address] Potassium [Moles/Vol] 4.2 mmol/L Normal 3.5-5.1 [facility] Comment on above: Performed By: #### C BC, BMP #### [facility] [address] Sodium [Moles/Vol] 138 mmol/L Normal 136-145 [facility] Comment on above: Performed By: #### C JAQUELIN, BMP #### [facility] [address] Urea nitrogen [Mass/Vol] 21 mg/dL Normal 7-25 [facility] Comment on above: Performed By: #### C JAQUELIN, BMP #### [facility] [address] [place] [address] [place] Basophils Auto (Bld) [#/Vol] Ordered By: Willie Ross on 02-10-2023 Basophils (Bld) [#/Vol] 0.1 10*3/uL 0.0-0.2 [facility] Basophils/100 WBC Auto (Bld) Ordered By: Willie Ross on 02-10-2023 Basophils/100 WBC (Bld) 1.2 % . [facility] Calcium [Mass/volume] in Ser um or PlasmaOrdered By: Willie Ross on 02-10-2023 Calcium [Mass/Vol] 9.3 mg/dL 8.6-10.3 [facility] Carbon dioxide, total [Moles /volume] in Serum or PlasmaOrdered By: Willie Ross on 02-10-2023 CO2 [Moles/Vol] 28.3 mmol/L 21.0-31.0 [facility] Chloride [Moles/volume] in S esther or PlasmaOrdered By: Willie Ross on 02-10-2023 Chloride [Moles/Vol] 105 mmol/L 98-107 [facility] Complete Blood Count Auto Di ffon 02-10-2023 Basophils (Bld) [#/Vol] 0.1 10*3/uL Normal 0.0-0.2 [facility] Comment on above: Result Comment: PERF ORMED BY: [place] [address] PATHOLOGIST CONE TENDER QING BABB M.D. Performed By: #### C BC, BMP #### [address] Basophils/100 WBC (Bld) 1.2 % Normal . [facility] Comment on above: Performed By: #### C BC, BMP #### [address] Eosinophils (Bld) [#/Vol] 0.2 10*3/uL Normal 0.0-0.45 [facility] Comment on above: Performed By: #### C BC, BMP #### [address] Eosinophils/100 WBC (Bld) 3.7 % Normal . [facility] Comment on above: Performed By: #### C BC, BMP #### [address] Erythrocyte distribution width (RBC) [Ratio] 14.4 % Normal 12.0-14.8 [facility] Comment on above: Performed By: #### C BC, BMP #### [address] Hematocrit (Bld) [Volume fraction] 37.2 % Low 38.8-50.0 [facility] Comment on above: Performed By: #### C BC, BMP #### [address] Hemoglobin (Bld) [Mass/Vol] 12.8 g/dL Low 13.0-17.0 [facility] Comment on above: Performed By: #### C BC, BMP #### [place] [address] [place] Lymphocytes (Bld) [#/Vol] 1.2 10*3/uL Normal 1.00-4.8 [facility] Comment on above: Performed By: #### C BC, BMP #### [address] Lymphocytes/100 WBC (Bld) 23.4 % Normal . [facility] Comment on above: Performed By: #### C BC, BMP #### [address] MCH (RBC) [Entitic mass] 30.3 pg Normal 27.5-35.2 [facility] Comment on above: Performed By: #### C BC, BMP #### [address] MCV (RBC) [Entitic vol] 87.9 fL Normal 83.5-101 [facility] Comment on above: Performed By: #### C BC, BMP #### [address] Mean Corpuscular HGB Conc 34.5 g/dL Normal 32.5-35.6 [facility] Comment on above: Performed By: #### C BC, BMP #### [address] Monocytes (Bld) [#/Vol] 0.3 10*3/uL Normal 0.0-0.8 [facility] Comment on above: Performed By: #### C BC, BMP #### [place] [address] [place] Monocytes/100 WBC (Bld) 6.8 % Normal . [facility] Comment on above: Performed By: #### C BC, BMP #### [address] Neutrophils (Bld) [#/Vol] 3.3 10*3/uL Normal 1.8-7.7 [facility] Comment on above: Performed By: #### C BC, BMP #### [address] Neutrophils/100 WBC (Bld) 64.9 % Normal . [facility] Comment on above: Performed By: #### C BC, BMP #### [facility] [address] NRBC% 0.1 /100{WBC} Normal 0-0.5 [facility] Comment on above: Performed By: #### C BC, BMP #### [facility] [address] Platelet mean volume (Bld) [Entitic vol] 7.9 fL Normal 6.6-10.1 [facility] Comment on above: Performed By: #### C BC, BMP #### [facility] [address] Platelets (Bld) [#/Vol] 203 10*3/uL Normal 150-450 [facility] Comment on above: Performed By: #### C BC, BMP #### [address] RBC (Bld) [#/Vol] 4.23 10*6/uL Normal 3.90-5.60 [facility] Comment on above: Performed By: #### C BC, BMP #### [address] WBC (Bld) [#/Vol] 5.1 10*3/uL Normal 4.1-10.5 [facility] Comment on above: Performed By: #### C BC, BMP #### [address] Creatinine [Mass/volume] in Serum or PlasmaOrdered By: Willie Ross on 02-10-2023 Creatinine [Mass/Vol] 1.19 mg/dL 0.70-1.30 [facility] Eosinophils Auto (Bld) [#/Vo l]Ordered By: Willie Ross on 02-10-2023 Eosinophils (Bld) [#/Vol] 0.2 10*3/uL 0.0-0.45 [facility] Eosinophils/100 WBC Auto (Bl d)Ordered By: Willie Ross on 02-10-2023 Eosinophils/100 WBC (Bld) 3.7 % . [facility] Erythrocyte distribution wid th Auto (RBC) [Ratio]Ordered By: Willie Ross on 02-10-2023 Erythrocyte distribution width (RBC) [Ratio] 14.4 % 12.0-14.8 [facility] Glucose [Mass/volume] in Ser um or PlasmaOrdered By: Willie Ross on 02-10-2023 Glucose [Mass/Vol] 93 mg/dL 70-100 [facility] Comment on above: ADA recommended refe rence rangeRandom Glucose Reference Range is dependent on time and content of last meal. Glucose of more than 200 mg/dL in a nonstressed, ambulatory subject supports the diagnosis of Diabetes Mellitus. Hematocrit Auto (Bld) [Volum e fraction]Ordered By: Willie Ross on 02-10-2023 Hematocrit (Bld) [Volume fraction] 37.2 % 38.8-50.0 [facility] Hemoglobin [Mass/volume] in BloodOrdered By: Willie Ross on 02-10-2023 Hemoglobin (Bld) [Mass/Vol] 12.8 g/dL 13.0-17.0 [facility] Leukocytes [#/volume] correc aster for nucleated erythrocytes in Blood by Automated counOrdered By: Willie Ross on 02-10-2023 WBC corrected for nucl RBC Auto (Bld) [#/Vol] 5.1 10*3/uL 4.1-10.5 [facility] Lymphocytes Auto (Bld) [#/Vo l]Ordered By: Willie Ross on 02-10-2023 Lymphocytes (Bld) [#/Vol] 1.2 10*3/uL 1.00-4.8 [facility] Lymphocytes/100 WBC Auto (Bl d)Ordered By: Willie Ross on 02-10-2023 Lymphocytes/100 WBC (Bld) 23.4 % . [facility] MCH Auto (RBC) [Entitic mass ]Ordered By: Willie Ross on 02-10-2023 MCH (RBC) [Entitic mass] 30.3 pg 27.5-35.2 [facility] MCHC Auto (RBC) [Mass/Vol]Or dered By: Willie Ross on 02-10-2023 MCHC (RBC) [Mass/Vol] 34.5 g/dL 32.5-35.6 [facility] MCV Auto (RBC) [Entitic vol] Ordered By: Willie Ross on 02-10-2023 MCV (RBC) [Entitic vol] 87.9 fL 83.5-101 [facility] Monocytes Auto (Bld) [#/Vol] Ordered By: Willie Ross on 02-10-2023 Monocytes (Bld) [#/Vol] 0.3 10*3/uL 0.0-0.8 [facility] Monocytes/100 WBC Auto (Bld) Ordered By: Willie Ross on 02-10-2023 Monocytes/100 WBC (Bld) 6.8 % . [facility] Neutrophils Auto (Bld) [#/Vo l]Ordered By: Willie Ross on 02-10-2023 Neutrophils (Bld) [#/Vol] 3.3 10*3/uL 1.8-7.7 [facility] Neutrophils/100 WBC Auto (Bl d)Ordered By: Willie Ross on 02-10-2023 Neutrophils/100 WBC (Bld) 64.9 % . [facility] No Panel InformationOrdered By: Willie Ross on 02-10-2023 Estimated GFR (CKD-EPI) > 60.0 mL/Min [facility] Creatinine Clearance (Chem N/A [facility] Nucleated erythrocytes [Pres ence] in Blood by Automated countOrdered By: Willie Ross on 02-10-2023 Nucleated RBC Auto Ql (Bld) 0.1 /100{WBC} 0-0.5 [facility] Platelet mean volume Auto (B ld) [Entitic vol]Ordered By: Willie Ross on 02-10-2023 Platelet mean volume (Bld) [Entitic vol] 7.9 fL 6.6-10.1 [facility] Platelets Auto (Bld) [#/Vol] Ordered By: Willie Ross on 02-10-2023 Platelets (Bld) [#/Vol] 203 10*3/uL 150-450 [facility] Potassium [Moles/volume] in Serum or PlasmaOrdered By: Willie Ross on 02-10-2023 Potassium [Moles/Vol] 4.2 mmol/L 3.5-5.1 [facility] RBC Auto (Bld) [#/Vol]Ordere d By: Willie Ross on 02-10-2023 RBC (Bld) [#/Vol] 4.23 10*6/uL 3.90-5.60 [facility] Serum or plasma anion gap de terminationOrdered By: Willie Ross on 02-10-2023 Anion gap [Moles/Vol] 8.9 mmol/L 6.0-15.0 [facility] Sodium [Moles/volume] in Ser um or PlasmaOrdered By: Willie Ross on 02-10-2023 Sodium [Moles/Vol] 138 mmol/L 136-145 [facility] Urea nitrogen [Mass/volume] in Serum or PlasmaOrdered By: Willie Ross on 02-10-2023 Urea nitrogen [Mass/Vol] 21 mg/dL 7-25 [facility] WBC Auto (Bld) [#/Vol]Ordere d By: Willie Ross on 02-10-2023 WBC (Bld) [#/Vol] 5.1 10*3/uL 4.1-10.5 [facility] RESPIRATORY PANEL PLUSon Adenovirus Not detected Normal NOT DETECTED [facility] Comment on above: Performed By: #### P OCGLUC #### [facility] [address] [place] [address] [address] Saskia Arzate Parapertusis Not detected Normal NOT DETECTED [facility] Comment on above: Performed By: #### P OCGLUC #### [facility] [address] [place] [address] [address] Saskia Arzate Pertussis Not detected Normal NOT DETECTED [facility] Comment on above: Performed By: #### P OCGLUC #### [facility] [address] [place] [address] [address] Saskia Lai Chlamydia Pneumoniae Not detected Normal NOT DETECTED [facility] Comment on above: Performed By: #### P OCGLUC #### [facility] [address] [place] [address] [address] Saskia Lai Coronavirus [id number] Not detected Normal NOT DETECTED [facility] Comment on above: Performed By: #### P OCGLUC #### [facility] [address] [place] [address] Dr. Saskia Lai Coronavirus HKU1 Not detected Normal NOT DETECTED [facility] Comment on above: Performed By: #### P OCGLUC #### [facility] [address] [place] [address] Dr. Saskia Lai Coronavirus NL63 Not detected Normal NOT DETECTED [facility] Comment on above: Performed By: #### P OCGLUC #### [facility] [address] [place] [address] Dr. Saskia Lai Coronavirus OC43 Not detected Normal NOT DETECTED [facility] Comment on above: Performed By: #### P OCGLUC #### [facility] [address] [place] [address] Dr. Saskia Lai Influenza A H1 Not detected Normal NOT DETECTED [facility] Comment on above: Performed By: #### P OCGLUC #### [facility] [address] [place] [address] Dr. Saskia Lai Influenza A H1 2009 Not detected Normal NOT DETECTED [facility] Comment on above: Performed By: #### P OCGLUC #### [facility] [address] [place] [address] Dr. Saskia Lai Influenza A H3 Not detected Normal NOT DETECTED [facility] Comment on above: Performed By: #### P OCGLUC #### [facility] [address] [place] [address] Dr. Saskia Lai Influenza B Not detected Normal NOT DETECTED [facility] Comment on above: Performed By: #### P OCGLUC #### [facility] [address] [place] [address] Dr. Saskia Lai Metapneumovirus Detected Abnormal NOT DETECTED [facility] Comment on above: Performed By: #### P OCGLUC #### [facility] [address] [place] [address] Dr. Saskia Lai Mycoplas. Pneumoniae Not detected Normal NOT DETECTED [facility] Comment on above: Performed By: #### P OCGLUC #### [facility] [address] [place] [address] Dr. Saskia Lai Parainfluenza 1 Not detected Normal NOT DETECTED [facility] Comment on above: Performed By: #### P OCGLUC #### [facility] [address] [place] [address] Dr. Saskia Lai Parainfluenza 2 Not detected Normal NOT DETECTED [facility] Comment on above: Performed By: #### P OCGLUC #### [facility] [address] [place] [address] Dr. Saskia Lai Parainfluenza 3 Not detected Normal NOT DETECTED [facility] Comment on above: Performed By: #### P OCGLUC #### [facility] [address] [place] [address] Dr. Saskia Lai Parainfluenza 4 Not detected Normal NOT DETECTED [facility] Comment on above: Performed By: #### P OCGLUC #### [facility] [address] [place] [address] Dr. Saskia Lai Rhino/Enterovirus Not detected Normal NOT DETECTED [facility] Comment on above: Performed By: #### P OCGLUC #### [facility] [address] [place] [address] Dr. Saskia Lai RP2 Header 1 RESPIRATORY PANEL: VIRUSES Normal [facility] Comment on above: Performed By: #### P OCGLUC #### [facility] [address] [place] [address] Dr. Saskia CONKLIN Header 2 RESPIRATORY PANEL: BACTERIA Normal [facility] Comment on above: Performed By: #### P OCGLUC #### [facility] [address] [place] [address] Dr. Saskia Lai RSV Not detected Normal NOT DETECTED [facility] Comment on above: Performed By: #### P OCGLUC #### [facility] [address] [place] [address] Dr. Saskia Lai SARS-CoV-2 (COVID-19) RNA TOSHA+probe Ql (Unsp spec) Not detected Normal NOT DETECTED [facility] Comment on above: Performed By: #### P OCGLUC #### [facility] [address] [place] [address] Dr. Saskia Lai CBC AUTO DIFFon 01-08-2022 BASO # 0.0 103/ul Normal 0.0-0.1 [facility] Comment on above: Performed By: #### C BC #### [facility] [address] [place] [address] Dr. Saskia Lai Basophils/100 WBC (Bld) 0.2 % Normal 0.2-2.0 [facility] Comment on above: Performed By: #### C BC #### [facility] [address] [place] [address] Dr. Saskia Lai EO # 0.1 103/ul Normal 0.0-0.7 [facility] Comment on above: Performed By: #### C BC #### [facility] [address] [place] [address] Dr. Saskia Lai Eosinophils/100 WBC (Bld) 0.8 % Critically low 0.9-7.0 [facility] Comment on above: Performed By: #### C BC #### [facility] [address] [place] [address] Dr. Saskia Lai Erythrocyte distribution width (RBC) [Ratio] 14.6 % Normal 11.0-15.0 [facility] Comment on above: Performed By: #### C BC #### [facility] [address] [place] [address] Dr. Saskia Lai Hematocrit (Bld) [Volume fraction] 32.5 % Critically low 42.0-54.0 [facility] Comment on above: Performed By: #### C BC #### [facility] [address] [place] [address] Dr. Saskia Lai Hemoglobin (Bld) [Mass/Vol] 10.8 g/dL Critically low 14.0-18.0 [facility] Comment on above: Performed By: #### C BC #### [facility] [address] [place] [address] Dr. Saskia Lai IG # 0.02 10e3/ul Normal 0.00-0.03 [facility] Comment on above: Performed By: #### C BC #### [facility] [address] [place] [address] Dr. Saskia Lai IG % 0.2 % Normal 0.0-0.5 [facility] Comment on above: Performed By: #### C BC #### [facility] [address] [place] [address] Dr. Saskia Lai LYMPH # 1.2 103/ul Normal 1.2-3.8 [facility] Comment on above: Performed By: #### C BC #### [facility] [address] [place] [address] Dr. Saskia Lai Lymphocytes/100 WBC (Bld) 12.3 % Critically low 20.5-60.0 [facility] Comment on above: Performed By: #### C BC #### [facility] [address] [place] [address] Dr. Saskia Lai MANUAL DIFF REQ NO Normal [facility] Comment on above: Performed By: #### C BC #### [facility] [address] [place] [address] Dr. Saskia Lai MCH (RBC) [Entitic mass] 29.8 pg Normal 25.9-34.0 [facility] Comment on above: Performed By: #### C BC #### [facility] [address] [place] [address] Dr. Saskia Lai MCHC (RBC) [Mass/Vol] 33.2 g/dL Normal 29.9-35.2 [facility] Comment on above: Performed By: #### C BC #### [facility] [address] [place] [address] Dr. Saskia Lai MCV (RBC) [Entitic vol] 89.8 fL Normal 80.0-94.0 [facility] Comment on above: Performed By: #### C BC #### [facility] [address] [place] [address] Dr. Saskia Lai MONO # 0.7 103/ul Normal 0.3-0.8 [facility] Comment on above: Performed By: #### C BC #### [facility] [address] [address] [address] Saskia Lai Monocytes/100 WBC (Bld) 7.1 % Normal 1.7-12.0 [facility] Comment on above: Performed By: #### C BC #### [facility] [address] [place] [address] Dr. Saskia Lai NEUT # 7.6 103/ul Critically high 1.4-6.5 [facility] Comment on above: Performed By: #### C BC #### [facility] [address] [place] [address] Dr. Saskia Lai Neutrophils/100 WBC (Bld) 79.4 % Critically high 43.0-75.0 [facility] Comment on above: Performed By: #### C BC #### [facility] [address] [place] [address] Dr. Saskia Lai Platelet mean volume (Bld) [Entitic vol] 10.5 fL Normal 9.5-13.5 [facility] Comment on above: Performed By: #### C BC #### [facility] [address] [place] [address] Dr. Saskia Lai PLT 172 103/ul Normal 150-450 [facility] Comment on above: Performed By: #### C BC #### [facility] [address] [place] [address] Dr. Saskia Lai RBC 3.62 106/ul Critically low 4.70-6.10 [facility] Comment on above: Performed By: #### C BC #### [facility] [address] [place] [address] Dr. Saskia Lai WBC 9.6 103/ul Normal 4.0-11.0 [facility] Comment on above: Performed By: #### C BC #### [facility] [address] [place] [address] Dr. Saskia Lai [facility]on SARS-CoV-2 (COVID-19) RNA TOSHA+probe Ql (Unsp spec) Not detected Normal NOT DETECTED [facility] Comment on above: Result Comment: When diagnostic [...] for this test is supported by the Lead of Health and Human Service's declaration that [...] VDTBH #### [facility] [address] [place] [address] Dr. Saskia Lai PROF CHEM 8 (BAS METB)on Anion gap [Moles/Vol] 10.6 mmol/L Normal [facility] Comment on above: Performed By: #### C VDTBH #### [facility] [address] [place] [address] Dr. Saskia Lai Calcium [Mass/Vol] 8.8 mg/dL Normal 8.5-10.1 [facility] Comment on above: Performed By: #### C VDTBH #### [facility] [address] [place] [address] Dr. Saskia Lai Chloride [Moles/Vol] 104 mmol/L Normal 98-107 [facility] Comment on above: Performed By: #### C VDTBH #### [facility] [address] [place] [address] Dr. Saskia Lai CO2 [Moles/Vol] 26.8 mmol/L Normal 21.0-32.0 [facility] Comment on above: Performed By: #### C VDTBH #### [facility] [address] [place] [address] Dr. Saskia Lai Creatinine [Mass/Vol] 1.18 mg/dL Normal 0.70-1.30 [facility] Comment on above: Performed By: #### C VDTBH #### [facility] [address] [place] [address] Dr. Saskia Lai EGFR-AF FIJIAN >60 Normal >=60 [facility] Comment on above: Performed By: #### C VDTBH #### [facility] [address] [address] [address] Saskia Lai EGFR-NON AF FIJIAN 60 mL/min/1.73m2 Normal >=60 [facility] Comment on above: Performed By: #### C VDTBH #### [facility] [address] [place] [address] Dr. Saskia Lai Glucose [Mass/Vol] 102 mg/dL Normal 74-106 [facility] Comment on above: Performed By: #### C VDTBH #### [facility] [address] [place] [address] Dr. Saskia Lai Potassium [Moles/Vol] 4.4 mmol/L Normal 3.5-5.1 [facility] Comment on above: Performed By: #### C VDTBH #### [facility] [address] [place] [address] Dr. Saskia Lai Sodium [Moles/Vol] 137 mmol/L Normal 136-145 [facility] Comment on above: Performed By: #### C VDTBH #### [facility] [address] [place] [address] Dr. Saskia Lai Urea nitrogen [Mass/Vol] 32.0 mg/dL Critically high 7.0-18.0 [facility] Comment on above: Performed By: #### C VDTBH #### [facility] [address] [place] [address] Dr. Saskia Lai Urea nitrogen/Creatinine [Mass ratio] 27.1 mg/mg Normal [facility] Comment on above: Performed By: #### C VDTBH #### [facility] [address] [place] [address] Dr. Saskia Lai PROTIMEon 01-08-2022 INR Coag (PPP) [Relative time] 1.28 {INR} Normal [facility] Comment on above: Performed By: #### C VDTBH #### [facility] [address] [place] [address] Dr. Saskia Lai INR GUIDELINES SEE BELOW Normal [facility] Comment on above: Result Comment: GABI RED INR: 2.0 - 3.0 CONDITIONS NOT LISTED BELOW 2.5 - 3.5 FOR PROSTHETIC HEART VALVE REPLACEMENT 2.5 - 3.5 RECURRENT THROMBOSIS Performed By: #### C VDTBH #### [facility] [address] [place] [address] Dr. Saskia Lai PT Coag (PPP) [Time] 13.6 s Critically high 9.0-11.6 [facility] Comment on above: Performed By: #### C VDTBH #### [facility] [address] [place] [address] Dr. Saskia Lai CBC AUTO DIFFon 01-07-2022 BASO # 0.0 103/ul Normal 0.0-0.1 [facility] Comment on above: Performed By: #### P OCGLUC #### [facility] [address] [place] [address] Dr. Saskia Lai Basophils/100 WBC (Bld) 0.1 % Critically low 0.2-2.0 [facility] Comment on above: Performed By: #### P OCGLUC #### [facility] [address] [place] [address] Dr. Saskia Lai EO # 0.0 103/ul Normal 0.0-0.7 [facility] Comment on above: Performed By: #### P OCGLUC #### [facility] [address] [place] [address] Dr. Saskia Lai Eosinophils/100 WBC (Bld) 0.0 % Critically low 0.9-7.0 [facility] Comment on above: Performed By: #### P OCGLUC #### [facility] [address] [place] [address] Dr. Saskia Lai Erythrocyte distribution width (RBC) [Ratio] 14.5 % Normal 11.0-15.0 [facility] Comment on above: Performed By: #### P OCGLUC #### [facility] [address] [place] [address] Dr. Saskia Lai Hematocrit (Bld) [Volume fraction] 34.4 % Critically low 42.0-54.0 [facility] Comment on above: Performed By: #### P OCGLUC #### [facility] [address] [place] [address] Dr. Saskia Lai Hemoglobin (Bld) [Mass/Vol] 11.6 g/dL Critically low 14.0-18.0 [facility] Comment on above: Performed By: #### P OCGLUC #### [facility] [address] [place] [address] Dr. Saskia Lai IG # 0.05 10e3/ul Critically high 0.00-0.03 [facility] Comment on above: Performed By: #### P OCGLUC #### [facility] [address] [place] [address] Dr. Saskia Lai IG % 0.3 % Normal 0.0-0.5 [facility] Comment on above: Performed By: #### P OCGLUC #### [facility] [address] [place] [address] Dr. Saskia Lai LYMPH # 0.9 103/ul Critically low 1.2-3.8 [facility] Comment on above: Performed By: #### P OCGLUC #### [facility] [address] [place] [address] Dr. Ssakia Lai Lymphocytes/100 WBC (Bld) 6.2 % Critically low 20.5-60.0 [facility] Comment on above: Performed By: #### P OCGLUC #### [facility] [address] [place] [address] Dr. Saskia Lai MANUAL DIFF REQ NO Normal [facility] Comment on above: Performed By: #### P OCGLUC #### [facility] [address] [place] [address] Dr. Saskia Lai MCH (RBC) [Entitic mass] 29.7 pg Normal 25.9-34.0 [facility] Comment on above: Performed By: #### P OCGLUC #### [facility] [address] [place] [address] Dr. Saskia Lai MCHC (RBC) [Mass/Vol] 33.7 g/dL Normal 29.9-35.2 [facility] Comment on above: Performed By: #### P OCGLUC #### [facility] [address] [place] [address] Dr. Saskia Lai MCV (RBC) [Entitic vol] 88.0 fL Normal 80.0-94.0 [facility] Comment on above: Performed By: #### P OCGLUC #### [facility] [address] [place] [address] Dr. Saskia Lai MONO # 1.0 103/ul Critically high 0.3-0.8 [facility] Comment on above: Performed By: #### P OCGLUC #### [facility] [address] [place] [address] Dr. Saskia Lai Monocytes/100 WBC (Bld) 6.5 % Normal 1.7-12.0 [facility] Comment on above: Performed By: #### P OCGLUC #### [facility] [address] [place] [address] Dr. Saskia Lai NEUT # 12.9 103/ul Critically high 1.4-6.5 [facility] Comment on above: Performed By: #### P OCGLUC #### [facility] [address] [place] [address] Dr. Saskia Lai Neutrophils/100 WBC (Bld) 86.9 % Critically high 43.0-75.0 [facility] Comment on above: Performed By: #### P OCGLUC #### [facility] [address] [place] [address] Dr. Saskia Lai Platelet mean volume (Bld) [Entitic vol] 10.3 fL Normal 9.5-13.5 [facility] Comment on above: Performed By: #### P OCGLUC #### [facility] [address] [place] [address] Dr. Saskia Lai PLT 208 103/ul Normal 150-450 [facility] Comment on above: Performed By: #### P OCGLUC #### [facility] [address] [place] [address] Dr. Saskia Lai RBC 3.91 106/ul Critically low 4.70-6.10 [facility] Comment on above: Performed By: #### P OCGLUC #### [facility] [address] [place] [address] Dr. Saskia Lai WBC 14.9 103/ul Critically high 4.0-11.0 [facility] Comment on above: Performed By: #### P OCGLUC #### [facility] [address] [place] [address] Dr. Saskia Lai PROF CHEM 8 (BAS METB)on Anion gap [Moles/Vol] 10.7 mmol/L Normal [facility] Comment on above: Performed By: #### B MP #### [facility] [address] [place] [address] Dr. Saskia Lai Calcium [Mass/Vol] 8.9 mg/dL Normal 8.5-10.1 [facility] Comment on above: Performed By: #### B MP #### [facility] [address] [place] [address] Dr. Saskia Lai Chloride [Moles/Vol] 101 mmol/L Normal 98-107 [facility] Comment on above: Performed By: #### B MP #### [facility] [address] [place] [address] Dr. Saskia Lai CO2 [Moles/Vol] 27.9 mmol/L Normal 21.0-32.0 [facility] Comment on above: Performed By: #### B MP #### [facility] [address] [place] [address] Dr. Saskia Lai Creatinine [Mass/Vol] 1.17 mg/dL Normal 0.70-1.30 [facility] Comment on above: Performed By: #### B MP #### [facility] [address] [place] [address] Dr. Saskia Lai EGFR-AF FIJIAN >60 Normal >=60 [facility] Comment on above: Performed By: #### B MP #### [facility] [address] [address] [address] Saskia Lai EGFR-NON AF FIJIAN >60 Normal >=60 [facility] Comment on above: Performed By: #### B MP #### [facility] [address] [address] [address] Saskia Lai Glucose [Mass/Vol] 121 mg/dL Critically high 74-106 [facility] Comment on above: Performed By: #### B MP #### [facility] [address] [address] [address] Saskia Lai Potassium [Moles/Vol] 4.5 mmol/L Normal 3.5-5.1 [facility] Comment on above: Performed By: #### B MP #### [facility] [address] [address] [address] Saskia Lai Sodium [Moles/Vol] 135 mmol/L Critically low 136-145 [facility] Comment on above: Performed By: #### B MP #### [facility] [address] [address] [address] Saskia Lai Urea nitrogen [Mass/Vol] 30.0 mg/dL Critically high 7.0-18.0 [facility] Comment on above: Performed By: #### B MP #### [facility] [address] [address] [address] Saskia Lai Urea nitrogen/Creatinine [Mass ratio] 25.6 mg/mg Normal [facility] Comment on above: Performed By: #### B MP #### [facility] [address] [address] [address] Saskia Lai PROTIMEon 01-07-2022 INR Coag (PPP) [Relative time] 1.21 {INR} Normal [facility] Comment on above: Performed By: #### P T #### [facility] [address] [address] [address] Saskia Lai INR GUIDELINES SEE BELOW Normal [facility] Comment on above: Result Comment: GABI RED INR: 2.0 - 3.0 CONDITIONS NOT LISTED BELOW 2.5 - 3.5 FOR PROSTHETIC HEART VALVE REPLACEMENT 2.5 - 3.5 RECURRENT THROMBOSIS Performed By: #### P T #### [facility] [address] [address] [address] Saskia Lai PT Coag (PPP) [Time] 12.9 s Critically high 9.0-11.6 [facility] Comment on above: Performed By: #### P T #### [facility] [address] [address] [address] Saskia Lai POINT OF CARE GLUCOSEon 12-09 Glucose [Mass/Vol] 114 mg/dL Critically high 74-106 T [facility] Comment on above: Performed By: #### P OCGLUC #### [facility] [address] [place] [address] Dr. Saskia Lai Glucose [Mass/Vol] 104 mg/dL Normal 74-106 [facility] Comment on above: Performed By: #### P OCGLUC #### [facility] [address] [place] [address] Dr. Saskia Lai PROTIMEon 01-06-2022 INR Coag (PPP) [Relative time] 1.19 {INR} Normal [facility] Comment on above: Performed By: #### P T #### [facility] [address] [place] [address] Dr. Saskia Lai INR GUIDELINES SEE BELOW Normal [facility] Comment on above: Result Comment: GABI RED INR: 2.0 - 3.0 CONDITIONS NOT LISTED BELOW 2.5 - 3.5 FOR PROSTHETIC HEART VALVE REPLACEMENT 2.5 - 3.5 RECURRENT THROMBOSIS Performed By: #### P T #### [facility] [address] [place] [address] Dr. Saskia Lai PT Coag (PPP) [Time] 12.7 s Critically high 9.0-11.6 [facility] Comment on above: Performed By: #### P T #### [facility] [address] [place] [address] Dr. Saskia Lai Covid-19 PCR (CVDTB)on 12-08 SARS-CoV-2 (COVID-19) RNA TOSHA+probe Ql (Unsp spec) Not detected Normal NOT DETECTED [facility] Comment on above: Result Comment: This test is not yet approved or cleared by the [place] FDA. When there are no FDA-approved or cleared tests available, and other criteria are met, FDA can make tests available under an emergency access mechanism called an Emergency Use Authorization (EUA). The EUA for this test is supported by the [employer] Att[employer] of Health and Human Service's (HHS's) declaration [...] VDTB #### [facility] [address] [place] [address] Dr. Saskia Lai CBC AUTO DIFFon 12-24-2021 BASO # 0.1 103/ul Normal 0.0-0.1 [facility] Comment on above: Performed By: #### C VDTBH #### [facility] [address] [place] [address] Dr. Saskia Lai Basophils/100 WBC (Bld) 1.2 % Normal 0.2-2.0 [facility] Comment on above: Performed By: #### C VDTBH #### [facility] [address] [place] [address] Dr. Saskia Lai EO # 0.2 103/ul Normal 0.0-0.7 [facility] Comment on above: Performed By: #### C VDTBH #### [facility] [address] [place] [address] Dr. Saskia Lai Eosinophils/100 WBC (Bld) 2.8 % Normal 0.9-7.0 [facility] Comment on above: Performed By: #### C VDTBH #### [facility] [address] [place] [address] Dr. Saskia Lai Erythrocyte distribution width (RBC) [Ratio] 14.4 % Normal 11.0-15.0 [facility] Comment on above: Performed By: #### C VDTBH #### [facility] [address] [place] [address] Dr. Saskia Lai Hematocrit (Bld) [Volume fraction] 40.5 % Critically low 42.0-54.0 [facility] Comment on above: Performed By: #### C VDTBH #### [facility] [address] [place] [address] Dr. Saskia Lai Hemoglobin (Bld) [Mass/Vol] 13.4 g/dL Critically low 14.0-18.0 [facility] Comment on above: Performed By: #### C VDTBH #### [facility] [address] [place] [address] Dr. Saskia Lai IG # 0.00 10e3/ul Normal 0.00-0.03 [facility] Comment on above: Performed By: #### C VDTBH #### [facility] [address] [place] [address] Dr. Saskia Lai IG % 0.0 % Normal 0.0-0.5 [facility] Comment on above: Performed By: #### C VDTBH #### [facility] [address] [place] [address] Dr. Saskia Lai LYMPH # 1.1 103/ul Critically low 1.2-3.8 [facility] Comment on above: Performed By: #### C VDTBH #### [facility] [address] [place] [address] Dr. Saskia Lai Lymphocytes/100 WBC (Bld) 19.5 % Critically low 20.5-60.0 [facility] Comment on above: Performed By: #### C VDTBH #### [facility] [address] [place] [address] Dr. Saskia Lai MANUAL DIFF REQ NO Normal [facility] Comment on above: Performed By: #### C VDTBH #### [facility] [address] [place] [address] Dr. Saskia Lai MCH (RBC) [Entitic mass] 29.6 pg Normal 25.9-34.0 [facility] Comment on above: Performed By: #### C VDTBH #### [facility] [address] [place] [address] Dr. Saskia Lai MCHC (RBC) [Mass/Vol] 33.1 g/dL Normal 29.9-35.2 [facility] Comment on above: Performed By: #### C VDTBH #### [facility] [address] [place] [address] Dr. Saskia Lai MCV (RBC) [Entitic vol] 89.4 fL Normal 80.0-94.0 [facility] Comment on above: Performed By: #### C VDTBH #### [facility] [address] [place] [address] Dr. Saskia Lai MONO # 0.4 103/ul Normal 0.3-0.8 [facility] Comment on above: Performed By: #### C VDTBH #### [facility] [address] [place] [address] Dr. Saskia Lai Monocytes/100 WBC (Bld) 6.7 % Normal 1.7-12.0 [facility] Comment on above: Performed By: #### C VDTBH #### [facility] [address] [place] [address] Dr. Saskia Lai NEUT # 4.0 103/ul Normal 1.4-6.5 [facility] Comment on above: Performed By: #### C VDTBH #### [facility] [address] [place] [address] Dr. Saskia Lai Neutrophils/100 WBC (Bld) 69.8 % Normal 43.0-75.0 [facility] Comment on above: Performed By: #### C VDTBH #### [facility] [address] [place] [address] Dr. Saskia Lai Platelet mean volume (Bld) [Entitic vol] 9.9 fL Normal 9.5-13.5 [facility] Comment on above: Performed By: #### C VDTBH #### [facility] [address] [place] [address] Dr. Saskia Lai PLT 228 103/ul Normal 150-450 [facility] Comment on above: Performed By: #### C VDTBH #### [facility] [address] [place] [address] Dr. Saskia Lai RBC 4.53 106/ul Critically low 4.70-6.10 [facility] Comment on above: Performed By: #### C VDTBH #### [facility] [address] [place] [address] Dr. Saskia Lai WBC 5.7 103/ul Normal 4.0-11.0 [facility] Comment on above: Performed By: #### C VDTBH #### [facility] [address] [place] [address] Dr. Saskia Lai PROF CHEM 8 (BAS METB)on Anion gap [Moles/Vol] 11.0 mmol/L Normal [facility] Comment on above: Performed By: #### P OCGLUC #### [facility] [address] [place] [address] Dr. Saskia Lai Calcium [Mass/Vol] 9.3 mg/dL Normal 8.5-10.1 [facility] Comment on above: Performed By: #### P OCGLUC #### [facility] [address] [place] [address] Dr. Saskia Lai Chloride [Moles/Vol] 102 mmol/L Normal 98-107 [facility] Comment on above: Performed By: #### P OCGLUC #### [facility] [address] [place] [address] Dr. Saskia Lai CO2 [Moles/Vol] 29.5 mmol/L Normal 21.0-32.0 [facility] Comment on above: Performed By: #### P OCGLUC #### [facility] [address] [place] [address] Dr. Saskia Lai Creatinine [Mass/Vol] 0.93 mg/dL Normal 0.70-1.30 [facility] Comment on above: Performed By: #### P OCGLUC #### [facility] [address] [address] [address] Saskia Lai EGFR-AF FIJIAN >60 Normal >=60 [facility] Comment on above: Performed By: #### P OCGLUC #### [facility] [address] [address] [address] Saskia Lai EGFR-NON AF FIJIAN >60 Normal >=60 [facility] Comment on above: Performed By: #### P OCGLUC #### [facility] [address] [address] [address] Saskia Lai Glucose [Mass/Vol] 97 mg/dL Normal 74-106 [facility] Comment on above: Performed By: #### P OCGLUC #### [facility] [address] [place] [address] Dr. Saskia Lai Potassium [Moles/Vol] 4.5 mmol/L Normal 3.5-5.1 [facility] Comment on above: Performed By: #### P OCGLUC #### [facility] [address] [place] [address] Dr. Saskia Lai Sodium [Moles/Vol] 138 mmol/L Normal 136-145 [facility] Comment on above: Performed By: #### P OCGLUC #### [facility] [address] [place] [address] Dr. Saskia Lai Urea nitrogen [Mass/Vol] 15.0 mg/dL Normal 7.0-18.0 [facility] Comment on above: Performed By: #### P OCGLUC #### [facility] [address] [address] [address] Saskia Lai Urea nitrogen/Creatinine [Mass ratio] 16.1 mg/mg Normal [facility] Comment on above: Performed By: #### P OCGLUC #### [facility] [address] [place] [address] Dr. Saskia Lai PROTIMEon 12-24-2021 INR Coag (PPP) [Relative time] 2.00 {INR} Normal [facility] Comment on above: Performed By: #### P T, PTT #### [facility] [address] [place] [address] Dr. Saskia Lai INR GUIDELINES SEE BELOW Normal [facility] Comment on above: Result Comment: GABI RED INR: 2.0 - 3.0 CONDITIONS NOT LISTED BELOW 2.5 - 3.5 FOR PROSTHETIC HEART VALVE REPLACEMENT 2.5 - 3.5 RECURRENT THROMBOSIS Performed By: #### P T, PTT #### [facility] [address] [place] [address] Dr. Saskia aLi PT Coag (PPP) [Time] 20.6 s Critically high 9.0-11.6 [facility] Comment on above: Performed By: #### P T, PTT #### [facility] [address] [place] [address] Dr. Saskia Lai PTTon 12-24-2021 aPTT Coag (Bld) [Time] 33.5 s Normal 22.3-36.2 [facility] Comment on above: Performed By: #### P T, PTT #### [facility] [address] [place] [address] CHEST W CONon [...] Normal [facility] PROF CHEM 8 (BAS METB)on Anion gap [Moles/Vol] 14.4 mmol/L Normal [facility] Comment on above: Performed By: #### P OCGLUC #### [facility] [address] [address] [address] Saskia Lai Calcium [Mass/Vol] 9.1 mg/dL Normal 8.5-10.1 [facility] Comment on above: Performed By: #### P OCGLUC #### [facility] [address] [address] [address] Saskia Lai Chloride [Moles/Vol] 102 mmol/L Normal 98-107 [facility] Comment on above: Performed By: #### P OCGLUC #### [facility] [address] [address] [address] Saskia Lai CO2 [Moles/Vol] 25.1 mmol/L Normal 21.0-32.0 [facility] Comment on above: Performed By: #### P OCGLUC #### [facility] [address] [address] [address] Saskia Lai Creatinine [Mass/Vol] 1.13 mg/dL Normal 0.70-1.30 [facility] Comment on above: Performed By: #### P OCGLUC #### [facility] [address] [address] [address] Saskia Lai EGFR-AF FIJIAN >60 Normal >=60 [facility] Comment on above: Performed By: #### P OCGLUC #### [facility] [address] [address] [address] Saskia aLi EGFR-NON AF FIJIAN >60 Normal >=60 [facility] Comment on above: Performed By: #### P OCGLUC #### [facility] [address] [address] [address] Saskia Lai Glucose [Mass/Vol] 82 mg/dL Normal 74-106 [facility] Comment on above: Performed By: #### P OCGLUC #### [facility] [address] [address] [address] Saskia Lai Potassium [Moles/Vol] 4.5 mmol/L Normal 3.5-5.1 [facility] Comment on above: Performed By: #### P OCGLUC #### [facility] [address] [address] [address] Saskia Lai Sodium [Moles/Vol] 137 mmol/L Normal 136-145 [facility] Comment on above: Performed By: #### P OCGLUC #### [facility] [address] [address] [address] Saskia Lai Urea nitrogen [Mass/Vol] 19.0 mg/dL Critically high 7.0-18.0 [facility] Comment on above: Performed By: #### P OCGLUC #### [facility] [address] [address] [address] Saskia Lai Urea nitrogen/Creatinine [Mass ratio] 16.8 mg/mg Normal [facility] Comment on above: Performed By: #### P OCGLUC #### [facility] [address] [address] [address] Saskia Hurley 08-12-2021 CARL Office Visit ([facility] ) -- REMI ZARCO ([id number]) 1945 M Date Time Provider Department 08/12/21 [...] (HCC) [M87.9] (more content not included)... Normal [facility] 08-01-2021 AVINASH Telephone ([facility]) -- CAROLEEREMI ([id number]) 1945 M Date Time Provider Department 08/01/21 [...] Fully Assessed Reason for Visit: Patient Question [5885] Patient Update [6934] Prescriptions as of 08/06/2021 - warfarin (COUMADIN) [...] disease), ankle and billy*07/10/2021 Encounter Status:Closed by SCHAABILIO COHEN on 08/01/21 Normal [facility] CNOVon 07-10-2021 CNOV Office Visit (OFSHEF ) -- REMI ZARCO ([id number]) 1945 Date Time Provider Department 07/10/21 1:00 [...] Referring Pro (more content not included)... Normal [facility] XR ANKLE 3V AP/LAT/OBL LTon 07-10-2021 XR [...] enthesophyte is seen IMPRESSION: Please see result Director Of Marketing And Promotions: [place] Transcribe Date/Time: Jul 10 2021 1:13P Dictated by : MIRNA WRIGHT MD This examination was interpreted and the report reviewed and electronically signed by: MIRNA WRIGHT MD on Jul 10 2021 1:14PM EST [id number] Normal [facility] XR ANKLE GENERAL 3V AP/LAT/O BL LEFTon 07-10-2021 [facility] XR FOOT 3V AP/LAT/OBL LTon 0 [...] formation is seen IMPRESSION: Please see result Director Of Marketing And Promotions: PSCB Transcribe Date/Time: Jul 12 2021 11:11A Dictated by : MIRNA WRIGHT MD This examination was interpreted and the report reviewed and electronically signed by: MIRNA WRIGHT MD on Jul 12 2021 11:12AM EST [id number] Normal [facility] CNOVon 06-14-2021 CNOV Office Visit (LOORRM ) -- REMI ZARCO ([id number]) 1945 M Date Time Provider Department 06/14/21 1:30 PM MANUEL SAUCEDO During your visit today, we recorded the following information about you: Manuel Saucedo DPM 06/14/2021 1:59 PM Signed [facility] Department of Orthopedics [facility] Orthopedic Surgery Name: Remi Zarco Date [...] brought in radiographs and a CT from [place] which demonstrate a valgus tilt of the [...] fix heis shoulder before he left for [place]. Discussed Dr. Torres but he does not want to drive to [facility]. Suggested he see Dr. Almendarez [...] Diagnoses:Ankle instabilit (more content not included)... Normal [facility] Vital Signs Date Time Vital Sign Value Performing Clinician Facility 02-24-2023 15:43-0500 Diastolic blood pressure 81 mm[Hg] MD Gil Gee Work Phone: [facility] 02-24-2023 15:43-0500 Heart rate 59 /min MD Gil Gee Work Phone: [facility] 02-24-2023 15:43-0500 Respiratory rate 16 /min MD Gil Gee Work Phone: [facility] 02-24-2023 15:43-0500 SaO2% (BldA) [Mass fraction] 95 % MD Gil Gee Work Phone: [facility] 02-24-2023 15:43-0500 Systolic blood pressure 148 mm[Hg] MD Gil Gee Work Phone: [facility] 02-24-2023 14:07-0500 Body temperature 97.3 [degF] MD Gil Gee Work Phone: [facility] 02-24-2023 14:07-0500 Inhaled oxygen flow rate 6 L/min MD Gil Gee Work Phone: [facility] 02-24-2023 12:55-0500 Body height 185.42 cm MD Gil Gee Work Phone: [facility] 02-24-2023 12:55-0500 Body mass index (BMI) [Ratio] 30.7 kg/m2 MD Gil Gee Work Phone: [facility] 02-24-2023 12:55-0500 Body weight 105.5 kg MD Gil Gee Work Phone: [facility] 11-09-2022 12:05-0400 Body height 182.88 cm Yolanda Somers Other [facility] [employer] Other 11-09-2022 12:05-0400 Body mass index (BMI) [Ratio] 31.08 kg/m2 Yolanda Somers Other [employer] Other 11-09-2022 12:05-0400 Body temperature 98.6 [degF] Yolanda Somers Other [employer] Other 11-09-2022 12:05-0400 Body weight 103.97 kg Yolanda Somers Other [employer] Other 11-09-2022 12:05-0400 Diastolic blood pressure 75 mm[Hg] Yoladna Somers Other [employer] Other 11-09-2022 12:05-0400 Respiratory rate 18 /min Yolanda Somers Other [employer] Other 11-09-2022 12:05-0400 SaO2% (BldA) [Mass fraction] 97 % Yolanda Somers Other [employer] Other 11-09-2022 12:05-0400 Systolic blood pressure 161 mm[Hg] Yolanda Somers Other [employer] Other Encounters Encounter Date Encounter Type Care Provider Facility Start: 10-30-2023 End: 10-30-2023 ambulatory JOBST SERVICE [facility] Start: 10-28-2023 End: 10-28-2023 ambulatory GIL GEE Not Available Start: 09-22-2023 End: 09-22-2023 ambulatory PACO MULTANI Not Available Start: 09-02-2023 End: 09-02-2023 ambulatory JOBST SERVICE [facility] Start: 07-27-2023 End: 07-27-2023 ambulatory SUMAN HARPER Not Available Start: 07-10-2023 End: 07-10-2023 ambulatory 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 of anticoagulants Start: 05-04-2023 End: 05-04-2023 ambulatory GIL GEE Not Available Start: 04-06-2023 End: 04-06-2023 ambulatory WILLIE W CHASIDY Not Available Start: 04-03-2023 End: 04-03-2023 Follow-up encounter Darrel Rangel MD Work Phone: [facility] Comment on above: Essential hypertensi on (Primary Dx); Persistent atrial fibrillation (CMS-HCC); snf (current) use of anticoagulants Start: 04-03-2023 End: 04-03-2023 [facility] Start: 03-24-2023 End: 03-24-2023 ambulatory PACO Fair MULTANI Not Available Start: 03-11-2023 Telephone encounter Jobskatarina Alvarado ice Work Phone: [facility] Start: 03-10-2023 Telephone encounter Davion duke RN [facility] Comment on above: Cardiac Clearance Start: 03-04-2023 End: 03-04-2023 ambulatory WILLIE ROSS Not Available Start: 02-24-2023 End: 02-24-2023 ambulatory Willie Ross Facility:[facility] Start: 02-24-2023 End: 02-24-2023 Admission to same day surgery center MD Gil Gee Work Phone: [facility] [place] Start: 02-24-2023 End: 02-24-2023 ambulatory MD Gil Gee Work Phone: [facility] Work Phone: Start: 02-10-2023 End: 02-10-2023 ambulatory Willie Ross Facility:[facility] Start: 02-10-2023 End: 02-10-2023 ambulatory MD Gil Gee Work Phone: [facility] Work Phone: Start: 02-10-2023 End: 02-10-2023 Patient encounter procedure MD Gil Gee Work Phone: [facility] Work Phone: Start: 02-04-2023 End: 02-04-2023 ambulatory WILLIE ROSS Not Available Start: 11-09-2022 End: 11-09-2022 ambulatory Yolanda Somers [facility] [employer] Other Start: 11-09-2022 Office outpatient ne w [address] [facility] Start: 07-23-2022 ambulatory [...] Start: 01-05-2022 Encounter for preprocedural laboratory examination LEXI SNOW [facility] Start: 01-02-2022 End: 01-03-2022 ambulatory LEXI MIRANDAANDER Facility:[facility] Start: 01-02-2022 End: 01-03-2022 Encounter for preprocedural laboratory examination LEXI Melendez [facility] Facility:[facility] Start: 12-27-2021 Encounter for preprocedural cardiovascular examination [facility] Start: 12-27-2021 Encounter for preprocedural laboratory examination [facility] Start: 12-24-2021 End: 12-25-2021 ambulatory [facility] Facility:[facility] Start: 12-24-2021 End: 12-25-2021 Encounter for preprocedural cardiovascular examination [facility] Facility:[facility] Start: 10-23-2021 End: 10-24-[address] [...] of left ankle Start: 07-10-2021 ambulatory Wanda Burrell ocheather RT(R) Radiology Comment on above: Radio Gen RMP Start: 07-10-2021 End: 07-10-2021 Patient encounter procedure Wanda Gandhi RT(R) [facility] Comment on above: DJD (degenerative adelaida int disease), ankle and foot, left (Primary Dx); Acquired valgus deformity of left ankle; PTTD (posterior tibial tendon dysfunction); Difficulty walking Start: 07-10-2021 End: 07-10-2021 Subsequent hospital visit by physician [facility] Work Phone: Radiology Comment on above: Left ankle pain, uns pecified chronicity [M25.572] Start: 06-14-2021 End: 06-14-2021 Patient encounter procedure Manuel Saucedo DPM Work Phone: Orthopaedics Comment on above: 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 (Primary Dx); Ankle instability, left; Chronic pain of left ankle Start: 07-13-2017 Patient encounter status Davion gonzales RN [facility] Procedures Date Procedure Procedure Detail Performing Clinician [...] DPM Work Phone: Start: 04-25-2021 Colonoscopy Davion Mccarthy Start: 05-13-2018 H/O: artificial joint Status post replacement of left shoulder joint Manuel Saucedo DPM Work Phone: Plan of Treatment Date Care Activity Detail Author Start: 04-25-2026 Screening for malignant neoplasm of colon Colonoscopy [facility] Start: 12-20-2023 Adult BMI Screening Adult BMI Screen ing [facility] Start: 12-20-2023 Tobacco Screening Tobacco Screening [facility] Start: 07-10-2023 End: 07-10-2023 Follow-up encounter 07/10/2023 8:00 AM EDT Follow Up Anticoagulation [facility] [address] [place] [address] Darrel Rangel MD [address] [place] [address] [employer], [address] [place] [address] [facility] Start: 05-22-2023 End: 05-22-2023 Follow-up encounter 05/22/2023 8:00 AM EDT Follow Up Anticoagulation [facility] [address] [place] [address] Darrel Rangel MD [employer], [address] [place] [address] [facility] Start: 04-03-2023 End: 04-03-2023 Follow-up encounter 04/03/2023 8:00 AM EST Follow Up Anticoagulation [facility] [address] [place] [address] Darrel Rangel MD [employer], [address] [place] [address] [facility] Start: 02-24-2023 End: 02-24-2023 [facility] Start: 11-07-2021 Influenza vaccination INFLUENZA (Sea son Ended) [facility] Start: 04-06-2021 DIABETES SCREEN DIABETES SCREEN [facility] Start: 03-09-2021 ADVANCE DIRECTIVE DISCUSSION ADVANCE DIRECTIVE DISCUSSION [facility] Start: 2010 Fall Risk Screening Fall Risk Screen [facility] Start: 2010 PNEUMOCOCCAL: 65+ (1 - PCV) PNEUMOCOCCAL: 65+ (1 - PCV) [facility] Start: 2010 PNEUMOVAX AGE 65 AND OVER WITH 5YR LOOKBACK (#1) PNEUMOVAX AGE 65 AND OVER WITH 5YR LOOKBACK (#1) [facility] Start: 06-07-1995 SHINGRIX VACCINE (1 of 2) SHINGRIX VACCINE (1 of 2) [facility] Start: 1964 DTaP,Tdap and Td Vaccines (1 - Tdap) DTaP,Tdap and Td Vaccines (1 - Tdap) [facility] Start: 1964 Urine microalbumin profile DTAP,TDAP,TD (1 - Tdap) [facility] Start: 06-07-1963 Adult BMI Follow Up Plan Adult BMI Follow Up Plan [facility] Start: 06-07-1963 HEPATITIS C SCREENING HEPATITIS C SC KOYD [facility] Start: 1957 Adult depression screening assessment DEPRESSION SCREENING [facility] Start: 1945 Medicare Annual Wellness Visit Medicare Annual Wellness Visit [facility] End: 09-11-2022 Mri any jt lower extrem w/o contrast matrl MRI ANKLE WO IVCON LT Radiology Routine Osteonecrosis (HCC) 1 Occurrences starting 08/12/2021 until 09/11/2022 [facility] Work Phone: Comment on above: 1 Occurrences starti ng 08/12/2021 until 09/11/2022 Patient referral [facility] Work Phone: XR FOOT GENERAL 3V AP/LAT/OBL LEFT XR FOOT GENERAL 3V AP/LAT/OBL LEFT Radiology Routine DJD (degenerative joint disease), ankle and foot, left 07/10/2021 1:07 PM EDT [facility] Work Phone: [facility] Immunizations Immunization Date Immunization Notes Care Provider Fa darinel 11-29-2021 COVID-19 (Pfizer) Bivalent Booster, Age 12Y+ MD Gil Gee Work Phone: [facility] 07-30-2021 COVID-19 (Pfizer) MD Gil osman Work Phone: [facility] 12-26-2020 COVID-19 (Pfizer) MD Gil osman Work Phone: [facility] 05-21-2020 COVID-19 (Pfizer) MD Gil osman Work Phone: [facility] 04-30-2020 COVID-19 (Pfizer) MD Gil osman Work Phone: [facility] Payers Date Payer Category Payer Self-pay [id number] 2019 Unknown MMO MMO MEDICARE SUPPLEMENT [id number] 2019-Present [phone] [address] [place] [address] Indemnity [id number]. [id number] 2010 Unknown ANTHEM BLUE CARD TRADITIONAL OOS [id number] 2010-Present [phone] [address] [place] [address] Indemnity [id number] [id number]. [id number] 2010 Unknown [id number]. 1.13.424.2.7.3. [id number] 2004 Medicare MEDICARE MEDICAR E A AND B [id number] 2004-Present [phone] [address] [address] [place] [address] Medicare [id number] [id number].3. [id number] 2002 Medicare MEDICARE MEDICAR E PART A & B [id number] 2002-Present [phone] [address] [place] [address] 1.2.840.501620.1.13.424.2.7.3. [id number] 1959 Medicare [id number] 1959 Unknown [id number] 1959 Unknown [id number] 1945 Unknown [id number] 2.16.840.1.439799.3.579.2.593 1945 Unknown [id number] 2.16.840.1.856862.3.579.2.593 1945 Unknown [id number] 2.16.840.1.938313.3.579.2.593 1945 Unknown [id number] 2.16.840.1.567870.3.579.2.593 1945 Unknown [id number] 2.16.840.1.034465.3.579.2.593 1945 Unknown [id number] 2.16.840.1.839801.3.579.2.593 1945 Unknown [id number] 2.16.840.1.376104.3.579.2.593 1945 Unknown [id number] 2.16.840.1.760703.3.579.2.593 1945 Unknown [id number] 2.16.840.1.155780.3.579.2.593 1945 Unknown [id number] 2.16.840.1.355571.3.579.2.593 1945 Unknown [id number] 2.16.840.1.989727.3.579.2.593 1945 Unknown [id number] 2.16.840.1.067139.3.579.2.1259 1945 Unknown [id number] 2.16.840.1.801927.3.579.2.1259 1945 Unknown [id number] 2.16.840.1.237597.3.579.2.1259 1945 Unknown [id number] 2.16.840.1.326227.3.579.2.1259 1945 Unknown [id number] 2.16.840.1.038612.3.579.2.1259 1945 Unknown [id number] 2.16.840.1.928871.3.579.2.1259 1945 Unknown [id number] 2.16.840.1.296038.3.579.2.1259 1945 Unknown [id number] 2.16.840.1.312847.3.579.2.1259 1945 Unknown [id number] 2.16.840.1.902505.3.579.2.1286 1945 Unknown [id number] 2.16.840.1.036622.3.579.2.1286 1945 Unknown [id number] 2.16.840.1.135326.3.579.2.1286 1945 Unknown [id number] 2.16.840.1.070715.3.579.2.1286 1945 Unknown [id number] 2.16.840.1.671245.3.579.2.1286 Unknown [id number] 2.16.840.1.725973.3.579.2.531 Unknown [id number] 2.16.840.1.675755.3.579.2.531 Social History Date Type Detail Facility Start: 05-21-2015 End: 05-02-2022 Tobacco smoking status NHIS Ex-smoker [facility] End: 03-09-1988 History of tobacco use Current smoker [facility] End: 03-09-1988 History of tobacco use Cigarette Smoker [facility] Start: 05-21-2015 End: 04-19-2020 Cigarettes smoked current (pack per day) - Reported 1 [facility] Start: 05-21-2015 End: 05-02-2022 Tobacco use and exposure Smokeless tobacco non-user [facility] Start: 03-26-2018 End: 12-19-2022 Alcohol intake Current drinker of alcohol (finding) [facility] Start: 03-26-2018 History SDOH Alcohol Comment rare [facility] Start: 1945 Sex Assigned At Not on file [facility] Start: 06-04-2021 End: 08-12-2021 Exposure to SARS-CoV-2 (event) Not sure [facility] Start: 04-19-2020 End: 12-19-2022 Sex Assigned At [facility] Start: 1945 Sex Assigned At Male F [facility] Adolescent depressio n screening assessment 0 [facility] Start: 01-05-2017 Alcohol Comment drinks occasionally [employer] [facility] Medical Equipment Procedure Code Equipment Code Equipment Origin al Text Equipment Identifier Dates Head Rsp 36mm Neutral Glenoid Retain Screw - [id number] Start: 04-02-2018 Insert Rsp Djo Surgical Standard Hxe+ Socket Sterile Humeral - [id number] Start: 04-02-2018 Stem Altivate Dj o Surgical 14 Standard 108mm Humeral Sterile Shoulder - [id number] Start: 04-02-2018 Baseplate Rsp P2 30mm Glenoid Sterile - [id number] Start: 04-02-2018 Screw Rsp 5mm 26 mm Bone Lock Glenoid Baseplate Shoulder - [id number] Start: 04-02-2018 Screw Rsp 5mm 30 mm Bone Lock Glenoid Baseplate Shoulder - [id number] Start: 04-02-2018 Screw Rsp 5mm 26 mm Bone Lock Glenoid Baseplate Shoulder - [id number] Start: 04-02-2018 Screw Rsp 5mm 18 mm Bone Lock Glenoid Baseplate Shoulder - [id number] Start: 04-02-2018 Goals Date Patient Goal Desired Activity /State Clinical Notes 06-14-2021 to 05-22-2023 Irene Boland, [facility] - 05/22/2023 8:00 AM Chrissy Boland, [facility] - 04/03/2023 8:00 AM ESTTelephone Encounter - Lizzette Mcnulty - 03/11/2023 8:27 AM EST Note Date & Type Note Facility 05-22-2023 History of Presen t illness Narrative 15 minute qjis-ah-wghj follow-up anticoagulation appointment. INR performed in office [...] bleeding/bleeding that persists or worsens. Irene Boland RPH 05/22/23 0805 documented in this encounter [facility] 04-03-2023 History of Presen t illness Narrative 15 minute bqop-ns-pqok follow-up anticoagulation appointment. INR performed in office [...] bleeding/bleeding that persists or worsens. Irene Boland RPH 04/03/23 0807 documented in this encounter [facility] 03-11-2023 Miscellaneous Notes Patient called requesting a refill of his warfarin 4 mg tablets for [facility] to [facility]. Last saw his referring provider 12/19/22. Noted. Refill sent to [facility] as requested for warfarin 4 mg tabs. Last OV: 12/19/22 documented in this encounter [facility] 03-11-2023 Telephone encounter Note Patient called requesting a refill of his warfarin 4 mg tablets for 90 days to [facility] mail order. Last saw his referring provider 12/19/22. [facility] 03-11-2023 Telephone encounter Note Noted. Refill sent to [facility] as requested for warfarin 4 mg tabs. Last OV: 12/19/22 [facility] 03-10-2023 Miscellaneous Notes ----- Message from Delicia Greer MD sent at 03/09/2023 4:58 PM EST ----- Okay to proceed with low risk ----- Message ----- From: Davion [place] RN Sent: 02/09/2023 9:37 AM EST To: Delicia Greer MD [facility] ----- Message ----- From: Winifred Melissa [facility] Sent: 02/06/2023 4:00 PM EST To: [facility] Clinical Staff Clearance [facility] [facility] documented in this encounter [facility] 03-10-2023 Telephone encounter Note ----- Message from Delicia Greer MD sent at 03/09/2023 4:58 PM EST ----- Okay to proceed with low risk ----- Message ----- From: Davion [place] RN Sent: 02/09/2023 9:37 AM EST To: MD STEPHON Santos ----- Message ----- From: Winifred Melissa [facility] Sent: 02/06/2023 4:00 PM EST To: [facility] Clinical Staff Clearance received 02/06/[address] [facility] [employer] 11-09-2022 Evaluation note Encounter Date Diagnosis Assessment [...] Nov, Surgical wound present (ICD-10 - T14.8XXA) [employer] Other 04-05-2023 NotePROCEDURE: XR FOOT LT MIN [...] Electronically authenticated by: YOU NEWELL Date: 2022-06-11 14:[address] [place], [place] [address]01-31-2023 NotePROCEDURE: XR FOOT LT MIN 3 VIEWS, [...] Electronically authenticated by: GERARDO AUGUSTIN Date: 2022-04-08 11:49[facility]01-31-2023 NotePROCEDURE: XR FOOT LT MIN 3 [...] Electronically authenticated by: GERARDO AUGUSTIN Date: 2022-04-08 11:49[facility]12-27-2022 NotePROCEDURE: XR FOOT LT MIN 3 [...] Electronically authenticated by: YOU NEWELL Date: 2022-03-04 16:58[facility]12-14-2022 NotePROCEDURE: XR FOOT LT MIN 3 [...] Electronically authenticated by: GERARDO AUGUSTIN Date: 2022-02-19 09:16[facility]11-30-2022 NotePROCEDURE: XR FOOT LT MIN 3 [...] Electronically authenticated by: GERARDO AUGUSTIN Date: 2022-02-05 06:48[facility]10-31-2022 NotePROCEDURE: XR FOOT LT 2V COMPARISON: 01/24/2021 HISTORY: Pain FINDINGS: 2 minute 27 seconds of fluoroscopy. 57 images. Fluoroscopic images demonstrate triple arthrodesis with posterior calcaneal osteotomy and subtalar fusion. Placement of a wedge spacer in the medial cuneiform. IMPRESSION: Images from triple arthrodesis Electronically authenticated by: YOU NEWELL Date: 2022-01-06 15:43[facility]10-31-2022 NotePROCEDURE: XR FOOT LT MIN 3 [...] Electronically authenticated by: YOU NEWELL Date: 2022-01-06 13:01[facility]10-31-2022 NotePROCEDURE: XR FOOT LT MIN 3 [...] Electronically authenticated by: YOU NEWELL Date: 2022-01-06 13:01[facility]2022 NoteHNO ID: [id number] Author: Darrel Almendarez DPM Service: ? Author [...] coordinating care for the patient. Darrel Almendarez [facility]2022 History of Present illness Narrative* Darrel Almendarez DPM - 08/12/2021 3:53 PM EDT Patient Visit for Remi Fairchild Carolee 1945 76 year old male SUBJECTIVE: Chief [...] patient. Darrel Almendarez DPM [facility]22 NoteHNO ID: [id number] Author: Darrel Almendarez DPM Service: ? Author [...] and/or coordinating care for the patient. [facility] History of Present illness Narrative* [...] patient. Darrel Almendarez DPM [facility]2022 NoteHNO ID: [id number] Author: RT Lorenzo(R) Service: ? Author Type: [...] BY: RT Lorenzo(R) July 10, 2021 12:44 [facility]05-04-2022 History of Present illness Narrative* RT [...] 10, 2021 12:44 PM [facility]-2022 NoteHNO ID: [id number] Author: Manuel Saucedo DPM Service: ? Author Type: Physician Type: Progress Notes Filed: 06/14/2021 1:59 PM Note Text: [facility] Department of Orthopedics [facility] Orthopedic Surgery Name: Remi Zarco Date [...] brought in radiographs and a CT from [place] which demonstrate a valgus tilt of the [...] fix heis shoulder before he left for [place]. Discussed Dr. Torres but he does not want to drive to [facility]. Suggested he see Dr. Almendarez [...] and decision planning for surgical invention [facility] History of Present illness Narrative* Manuel Saucedo DPM - 06/14/2021 1:53 PM EDT [facility] Department of Orthopedics [facility] Orthopedic Surgery Name: Remi Zarco Date [...] brought in radiographs and a CT from [place] which demonstrate a valgus tilt of the [...] fix heis shoulder before he left for [place]. Discussed Dr. Torres but he does not want to drive to [facility]. Suggested he see Dr. Almendarez [...] invention Manuel Saucedo DPM documented in this encounterC[facility] CenterEvaluation [facility]* Diagnosis Acquired valgus deformity of left ankle- Primary Ankle instability, left Chronic pain of left ankle [facility]* Diagnosis DJD (degenerative joint disease), ankle and foot, left- Primary Acquired valgus deformity of left ankle PTTD (posterior tibial tendon dysfunction) Other disorders of synovium, tendon, and bursa Difficulty walking Difficulty in walking documented [facility] this encounter [facility]* Diagnosis Left ankle pain, unspecified chronicity DJD (degenerative joint disease), ankle and foot, left [facility]* Diagnosis DJD (degenerative joint disease), ankle and foot, left- Primary Osteonecrosis (HCC) Aseptic necrosis of bone, site unspecified PTTD (posterior tibial tendon dysfunction) Other disorders of synovium, tendon, and bursa Acquired valgus deformity of left ankle Difficulty walking Difficulty in walking Ankle instability, left Chronic pain of left ankle documented in this encounter [facility] CenterEvaluation noteNo assessment information availablePaulding [facility]tr Work Phone: Evaluation note* Diagnosis supervisor 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 note* Diagnosis Essential hypertension- Primary Unspecified essential hypertension Persistent atrial fibrillation (CMS-HCC) Atrial fibrillation supervisor intermediates (current) use of anticoagulants Long-term (current) use of anticoagulants documented in this encounter [facility] LiveRS[facility] SystemHistory general Narrative - Reported* Type Description Date Medical History HYPERTENSION Medical History HYPOTHYROIDISM Surgical History BILATERAL KNEE REPLACEMENT Surgical History LEFT SHOULDER REPLACEMENT Surgical History MULTIPLE SURGERIES ON BOTH SHOU LDER Surgical History BENIGN TUMOR UNDER LEFT EAR Surgical History LEFT FOOT PARTIAL FUSION Hospitalization History SEE ABOVE [facility] [employer] Other Hospital Discharge instructions Additional Instructions Apply ointment. Shower tomorrow. Restart coumadin ..[facility] Work Phone: InstructionsNot on filedocumented in this encounter [facility]Run[facility] SystemInstructionsNot on filedocumented in this encounter [facility]Run[facility] SystemInstructionsNot on filedocumented in this encounter [facility]RunRev SystemReason for referral (narrative)* Diagnostic Procedure Only (Routine) - Closed Specialty Diagnoses / Procedures Referred By Contac t Referred To Contact XR IMAGING Diagnoses DJD (degenerative joint disease), ankle and foot, left Procedures XR FOOT GENERAL 3V AP/LAT/OBL LEFT RADEX FOOT COMPLETE MINIMUM 3 VIEWS Darrel Almendarez DPM [address] [place] [address] Xr Imaging Referral ID Status Reason Start Date Expiration Date V isits Requested Visits Authorized [id number] Closed Auto-Generate d Referral 07/10/2021 08/09/2022 1 1 [facility] for referral (narrative)* Diagnostic Procedure Only (Routine) - Closed Specialty Diagnoses / Procedures Referred By Contac t Referred To Contact XR IMAGING Diagnoses DJD (degenerative joint disease), ankle and foot, left Procedures XR FOOT GENERAL 3V AP/LAT/OBL LEFT RADEX FOOT COMPLETE MINIMUM 3 VIEWS Darrel Almendarez DPM [address] [place] [address] Xr Imaging Referral ID Status Reason Start Date Expiration Date V isits Requested Visits Authorized [id number] Closed Auto-Generate d Referral 07/10/2021 08/09/2022 1 1 * Diagnostic Procedure Only (Routine) - Closed Specialty Diagnoses / Procedures Referred By Contac t Referred To Contact XR IMAGING Diagnoses Left ankle pain, unspecified chronicity Procedures XR ANKLE GENERAL 3V AP/LAT/OBL LEFT RADEX ANKLE COMPLETE MINIMUM 3 VIEWS Darrel Almendarez DPM [address] [place] [address] Xr Imaging Referral ID Status Reason Start Date Expiration Date V isits Requested Visits Authorized [id number] Closed Auto-Generate d Referral 06/28/2021 07/28/2022 1 1 [facility] for visit Narrative* Diagnostic Procedure Only (Routine) - Closed Specialty Diagnoses / Procedures Referred By Contac t Referred To Contact XR IMAGING Diagnoses Left ankle pain, unspecified chronicity Procedures XR ANKLE GENERAL 3V AP/LAT/OBL LEFT RADEX ANKLE COMPLETE MINIMUM 3 VIEWS Darrel Almendarez DPM [address] [place] [address] Xr Imaging Referral ID Status Reason Start Date Expiration Date V isits Requested Visits Authorized [id number] Closed Auto-Generate d Referral 06/28/2021 07/28/2022 1 1 [facility] Advance Directives No Advanced Directives Records FoundDocuments on File Type Date Recorded Patient 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 anation Advance Directive(s) 04/02/2018 11:18 AM Advance Directive(s) 03/26/2018 1:54 PM Advance Directive(s) 03/22/2018 10:08 AM Documents on File Type Date Recorded Patient Vault Keeper Expl anation Advance Directive(s) 04/02/2018 11:18 AM [...] EXTREM W/O CONTRAST Darrel Spring DPM [address] [place] [address] Mr Imaging Referral ID Status Reason Start Date Expiration Date Visits Requested Visits Authorized [id number] Pending Review Auto-Generat ed Referral 08/12/2021 09/11/2022 [...] or prosecute any alcohol or drug abuse patient.[facility] CenterIn the event this information is protected by the Federal Confidentiality of Alcohol and Drug Abuse Patient Records regulations: The Federal rules restrict any use of the information to criminally investigate or prosecute any alcohol or drug abuse patient.[facility] CenterIn the event this information is protected by the Federal Confidentiality of Alcohol and Drug Abuse Patient Records regulations: The Federal rules restrict any use of the information to criminally investigate or prosecute any alcohol or drug abuse patient.[facility] CenterIn the event this information is protected by the Federal Confidentiality of Alcohol and Drug Abuse Patient Records regulations: The Federal rules restrict any use of the information to criminally investigate or prosecute any alcohol or drug abuse patient.[facility] CenterIn the event this information is protected by the Federal Confidentiality of Alcohol and Drug Abuse Patient Records regulations: The Federal rules restrict any use of the information to criminally investigate or prosecute any alcohol or drug abuse patient.[facility] Reason for Visit (unrecogniz ed section and content) Reason Comments Pain Reason Comments Radio Gen RMP Reason Comments New Pain Reason Comments Established Patient Follow Up Pain Reason Onset Date Comments Cardiac Clearance 03/10/2023 Care Teams (unrecognized sec tion and content) Motor Grader Rough Grade Relationship Specialty Start Date End Date Gil Gee [address] [place] [address] PCP - [facility] 02/25/18 Motor Grader Rough Grade Relationship Specialty Start Date End Date Gil Gee [address] [place] [address] PCP - General Family Practice 02/25/18 Motor Grader Rough Grade Relationship Specialty Start Date End Date Gil Gee [address] [place] [address] PCP - [facility] 02/25/18 Motor Grader Rough Grade Relationship Specialty Start Date End Date BelindatrinityGil melendez [address] [place] [address] PCP - General Family Practice 02/25/18 Motor Grader Rough Grade Relationship Specialty Start Date End Date BelindatrinityGil melendez [address] [place] [address] PCP - [facility] 02/25/18 Team Status: Active Member Role Status Dates Gil Gee MD Primary Care Provider Active Team Status: Inactive Member Role Status Dates Willie Ross DO Attending Provider Active Gil Gee MD Primary Care Provider Active Motor Grader Rough Grade Relationship Specialty Start Date End Date Gil Gee MD [address] [facility] [place] [address] PCP - General 12/09/16 Motor Grader Rough Grade Relationship Specialty Start Date End Date Gil Gee MD [address] [facility] [address] PCP - General 12/09/16 (unrecognized sect ion and content) No Status Records FoundNo Status Records FoundNo Status Records FoundNo Status Records FoundNo Status Records Found INFORMATION SOURCE (unrecogn ized section and content) DATE CREATED AUTHOR 08/13/2021 [facility] DATE CREATED AUTHOR AUTHOR'S ORGANIZ ATION 07/21/2022 [facility] DATE CREATED AUTHOR AUTHOR'S ORGANIZ ATION 04/17/2023 [facility] DATE CREATED AUTHOR AUTHOR'S ORGANIZ ATION 10/30/2023 [facility]ical [facility] DATE CREATED AUTHOR AUTHOR'S ORGANIZ ATION 11/01/2023 [facility] Goals (unrecognized section and content) Goals may [...] BE BASED ON THE PRIMARY CLINICAL RECORDS. [employer] [facility]. provides no warranty or guarantee of the accuracy or completeness of information in this document.
[2023-11-18 14:30] LABS: Magnesium 2.1 mg/dL (1.8-2.4)
== END 2023-11-18 13:42 | disposition home or self-care (01) ==
LOC: LAB 13:43
PROVIDERS: PCP Family Medicine
DX: E03.9 Hypothyroidism, unspecified (principal); E78.5 Hyperlipidemia, unspecified; Z79.899 Other long term (current) drug therapy; I10 Essential (primary) hypertension
CPT/HCPCS: 36415; 80048; 80061; 80076; 83735; 84439; 84443; 84481; 85025

== ENCOUNTER 2024-07-14 11:32 | Outpatient (OUT) | payer MEDICARE, OTHER, BC, SELFPAY ==
--- NOTE | 2024-07-14 11:39 | XR_ITS ---
The [place] [id number] Patient Name: REMI ZARCO MRN: [id number] date: 1945 Sex: M Assigned Patient Location: [facility] Current Patient Location: [facility] Accession/Order Number: [id number] Exam Date: 07/14/2024 13:44 Report Date: 07/14/2024 13:46 At the request of: LEXI HERNANDEZ DPRatna Procedure: XR foot LT min 3V LEFT ANKLE - 3 views left foot 3 views CLINICAL HISTORY: Arthritis COMPARISON: None FINDINGS: Postoperative changes involving the hindfoot and midfoot without hardware complication. There appears to be hardware fixating a calcaneus fracture with underlying sclerosis suggestive of healing response. There is severe degenerative changes involving the ankle mortise as well as the hindfoot and midfoot. No definite acute bony process is seen. XR/XR foot LT min 3V IMPRESSION: NO HARDWARE COMPLICATION. THERE APPEARS TO BE A HEALING CALCANEAL FRACTURE NOTED. Impression dictated by: Pete Jacobson Jr., DClarisseOClarisse 07/14/2024 1:46 PM Dictation Location: [place] [address] Electronically authenticated by: [id number] Y Date: 07/14/2024 13:46
--- NOTE | 2024-07-14 11:46 | XR_ITS ---
The [place] [id number] Patient Name: REMI ZARCO MRN: [id number] date: 1945 Sex: M Assigned Patient Location: [facility] Current Patient Location: [facility] Accession/Order Number: [id number] Exam Date: 07/14/2024 13:44 Report Date: 07/14/2024 13:46 At the request of: LEXI HERNANDEZ DPRatna Procedure: XR foot LT min 3V LEFT ANKLE - 3 views left foot 3 views CLINICAL HISTORY: Arthritis COMPARISON: None FINDINGS: Postoperative changes involving the hindfoot and midfoot without hardware complication. There appears to be hardware fixating a calcaneus fracture with underlying sclerosis suggestive of healing response. There is severe degenerative changes involving the ankle mortise as well as the hindfoot and midfoot. No definite acute bony process is seen. XR/XR ankle LT min 3V IMPRESSION: NO HARDWARE COMPLICATION. THERE APPEARS TO BE A HEALING CALCANEAL FRACTURE NOTED. Impression dictated by: Pete Jacobson Jr., DClarisseOClarisse 07/14/2024 1:46 PM Dictation Location: [place] [address] Electronically authenticated by: [id number] Y Date: 07/14/2024 13:46
== END 2024-07-14 11:33 | disposition home or self-care (01) ==
LOC: RAD 11:35
PROVIDERS: PCP Family Medicine; Visit Provider Podiatrist Foot & Ankle Surgery
DX: M19.072 Primary osteoarthritis, left ankle and foot (principal)
CPT/HCPCS: 73610; 73630

== ENCOUNTER 2024-07-21 12:01 | Outpatient (OUT) | payer MEDICARE, OTHER, BC, SELFPAY ==
--- NOTE | 2024-07-21 12:10 | XR_ITS ---
The [address] [address] Patient Name: REMI ZARCO MRN: [id number] date: 1945 Sex: M Assigned Patient Location: [facility] Current Patient Location: [facility] Accession/Order Number: [id number] Exam Date: 07/21/2024 13:39 Report Date: 07/21/2024 13:40 At the request of: LEXI HERNANDEZ DPRatna Procedure: XR foot RT min 3V XR foot RT min 3V 07/21/2024 12:32 PM SIGNS AND SYMPTOMS: Pain and swelling of the right foot, recent fall PROTOCOL: Frontal, lateral, and oblique radiographs of the right foot COMPARISON: None FINDINGS: There is narrowing of the first metatarsophalangeal junction. Degenerative changes are noted at the tarsometatarsal junctions throughout the foot. There is no fracture or dislocation. There is nonspecific diffuse soft tissue swelling. There is plantar surface calcaneal spurring. XR/XR foot RT min 3V IMPRESSION: No fracture or dislocation. Degenerative changes are noted with soft tissue swelling diffusely. Impression dictated by: Cristian Barrios M.D. 07/21/2024 1:40 PM [facility]ation [facility] Electron[facility] authenticated by: [id number] Y Date: 07/21/2024 13:40
== END 2024-07-21 12:02 | disposition home or self-care (01) ==
LOC: RAD 12:05
PROVIDERS: PCP Family Medicine; Visit Provider Podiatrist Foot & Ankle Surgery
DX: M79.671 Pain in right foot (principal)
CPT/HCPCS: 73630

== ENCOUNTER 2024-09-15 07:13 | Outpatient (RCR) | payer MEDICARE, OTHER, BC, SELFPAY ==
--- NOTE | 2024-05-19 07:47 | CR1_ITS ---
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
--- NOTE | 2024-05-20 09:25 | CR1_ITS ---
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
--- NOTE | 2024-06-16 11:23 | CR1_ITS ---
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
--- NOTE | 2024-07-18 11:16 | CR1_ITS ---
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 The patient can be educated that it is not necessary to always involve the lower extremities in order to exercise - there are plenty of core, upper body, and upper extremity techniques which can be done without aggravating an ankle injury. Electronically Signed On 07-18-2024 15:56:00 EDT by Atif Shankar
--- NOTE | 2024-08-19 07:44 | CR1_ITS ---
The [facility] Test Date: 2024-08-19 Pat Name: REMI ZARCO Department: Room: - Gender: Male Director Money: : 1945 Requested By: JITENDRA GEE Order Number: [id number] Higinio MD: Atif Shankar Interpretive Statements Okay to continue with outlined treatment plan. Electronically Signed On 08-22-2024 18:31:30 EDT by Atif Shankar
--- NOTE | 2024-09-12 07:26 | CR1_ITS ---
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 Electronically Signed On 09-14-2024 10:12:45 EDT by Atif Shankar
--- NOTE | 2024-09-15 08:30 | CR1_ITS ---
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 Electronically Signed On 09-19-2024 18:02:15 EDT by Atif Shankar
== END 2024-09-15 08:34 | disposition home or self-care (01) ==
LOC: CR 07:13
PROVIDERS: PCP Family Medicine
DX: Z95.1 Presence of aortocoronary bypass graft (principal)
CPT/HCPCS: 93798

== ENCOUNTER 2024-11-28 12:38 | Outpatient (OUT) | payer MEDICARE, OTHER, BC, SELFPAY ==
--- OUTSIDE RECORDS SUMMARY | 2024-11-28 12:42 | XMS_ITS | Encounter Summary ---
Author Organization [facility] Address [address] [place] [address] Care Team Providers Care Sales Consultant Name Role Phone Gil Higgins MD Primary Care Provider [phone] Gil Higgins MD Unavailable Encounter Details Date Type Department Care Team (Late st Contact Info) Description 07/14/2024 Orders Only [facility]O [facility] [address] [facility] [place] [phone] Khai Snow MD [address] [place] [address] [address] [place], [place] [address] Social History Tobacco Use Types Packs/Day Years Used Date Smoking Tobacco: Former Cigarettes 1 10 0 03/09/1967 - 03/09/1977 Passive Smoke Exposure: Past Comments:Light smoker (1-9 c igs /day) Alcohol Use Standard Drinks/Week Comments Never 0 (1 standard drink = 0.6 oz pure alcohol) caffeine intake : 1-2 cups per day PHQ-2 Answer Date Recorded Patient Health Questionnaire-2 Score 0 01/18/2024 Sex and Gender Information Value Date Recorded Sex Assigned at Not on file Legal Sex Male 7:30 PM EDT Gender Identity Not on file Sexual Orientation Not on file documented as of this encounter Plan of Treatment Upcoming Encounters Date Type Department Care Team (Late st Contact Info) Description 03/28/2025 8:30 AM EST Procedure Visit [facility] [address] [place] [phone] Adilia Dugan, DPM [address] [place] [address] 05/24/2025 1:00 PM EDT Office Visit [facility] [address] [place] [address] Jr. Charli Ch, DO [address] [place] [address] 07/26/2025 1:00 PM EDT Office Visit [facility] [address] [place] [address] Juana Garcia MD [address] [place] [address] documented as of this encounter Procedures Procedure Name Priority Date/Time Associated Diagnosis Comments XR FOOT 3+ VIEWS LEFT Routine 07/14/2024 1:57 PM EDT documented in this encounter Results * XR foot 3+ views left (07/14/2024 1:57 PM EDT) Anatomical Region Laterality Modality Lower Extremities, Foot Left Radiogra phic Imaging Khai Snow MD IMG XR PROCEDURES Final Re sult documented in this encounter Visit Diagnoses Not on filedocumented in this encounter Additional Health Concerns Assessment Noted Time PHQ-9 Depression Total Score: 0 01/18/20 24 10:00 AM EST documented as of this encounter Care Teams Sales Consultant Relationship Specialty Start Date End Date Gil Higgins MD PCP - General Family Medicine 04/22/23 Gil Higgins MD [address] [place] [address] PCP - ACO Reach 04/15/24 documented as of this encounter
--- OUTSIDE RECORDS SUMMARY | 2024-11-28 12:42 | XMS_ITS | Encounter Summary ---
Author Organization [facility] Address [address] [place] [address] Care Team Providers Care Microsoft Dynamics Consultant Name Role Phone Gil Higgins MD Primary Care Provider [phone] Gil Higgins MD Primary Care Provider [phone] Gil Higgins MD Unavailable Encounter Details Date Type Department Care Team (Late st Contact Info) Description 03/30/2023 Clinisync Result Encounter [facility] External Department Unsolicited Provider, Generic External Data Social History Tobacco Use Types Packs/Day Years Used Date Smoking Tobacco: Former Cigarettes 1 10 0 03/09/1967 - 03/09/1977 Comments:Light smoker (1-9 c igs /day) Alcohol Use Standard Drinks/Week Comments Never 0 (1 standard drink = 0.6 oz pure alcohol) caffeine intake : 1-2 cups per day Sex and Gender Information Value Date Recorded Sex Assigned at Not on file Legal Sex Male 7:30 PM EDT Gender Identity Not on file Sexual Orientation Not on file documented as of this encounter Plan of Treatment Upcoming Encounters Date Type Department Care Team (Late st Contact Info) Description 03/28/2025 8:30 AM EST Procedure Visit [facility] [address] [place] [address] Adilia Dugan, DPRatna [address] [place], [place] [address] 05/24/2025 1:00 PM EDT Office Visit [facility] [address] [facility] [address] [place] [address] Jr. Charli Ch, DO [address] [facility] [address] [place] [address] 07/26/2025 1:00 PM EDT Office [facility] [address] [place] [address] Juana Garcia MD [address] [place] [address] documented as of this encounter Procedures Procedure Name Priority Date/Time Associated Diagnosis Comments SEGMENTAL BLOOD PRESSURE 03/30/2023 1:52 PM EST documented in this encounter Results * SEGMENTAL BLOOD PRESSURE (03/30/2023 1:52 PM EST) Anatomical Region Laterality Modality Radiographic Carmelita ging 03/30/2023 1:52 PM EST Narrative 03/31/2023 7:01 [place] [address] Cardiology Report Signed Patient: TITI ZARCO MR#: [id number] : 1945 Acct:[id number] Age/Sex: 77 / M ADM Date: 03/30/23 Loc: CARD Attending Dr: Atif Zhong D.P.M. Ordering Physician: Atif Zhong D.P.M. Date of Service: 03/30/23 Procedure(s): CA segmental UE or LE KIMBERLY Accession Number(s): [id number] cc: Atif Zhong D.P.M.; Gil Higgins M.D. 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 - normal arterial evaluation of the lower extremities without hemodynamic impairment of the B/L lower extremities at rest. (right ANJALI 1.01, left ANJALI 1.03) - normal B/L TBI - clinical correlation advised Electronically Signed On 03-31-2023 7:01:08 EST by WILLIE WATTS Dictated By: Willie Watts D.O. Signed By: 03/31/23 0703/31/23 07 DD/ 1352 TD/TT: Compensation And Benefits Advisor: Procedure Note Radiology, Radiologist, MD - 03/31/2023 [place] [address] Cardiology Report Signed Patient: TITI ZARCO AMR#: [id number] : 1945cct:[id number] Age/Sex: 77 / MADM Date: 03/30/23 Loc: CARD Attending Dr: Atif Zhong D.P.M. Ordering Physician: Atif Zhong D.P.M. Date of Service: 03/30/23 Procedure(s): CA segmental UE or LE KIMBERLY Accession Number(s): [id number] cc: Atif Zhong D.P.M.; Gil Higgins M.D. 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 - normal arterial evaluation of the lower extremities without hemodynamic impairment of the B/L lower extremities at rest. (right ANJALI 1.01, left ANJALI 1.03) - normal B/L TBI - clinical correlation advised Electronically Signed On 03-31-2023 7:01:08 EST by WILLIE WATTS Dictated By: Willie Watts D.O. Signed By:03/31/23 0701 03/31/23 0701 DD/ 1352 TD/TT: Compensation And Benefits Advisor: us Generic External Data Provider IMG XR PROCEDURES Final Result documented in this encounter Visit Diagnoses Not on filedocumented in this encounter Care Teams Microsoft Dynamics Consultant Relationship Specialty Start Date End Date Gil Higgins MD PCP - General Family Medicine 10/13/22 04/21/23 Gil Higgins MD PCP - General Family Medicine 04/22/23 Gil Higgins MD [address] [place] [address] PCP - ACO Reach 04/15/24 documented as of this encounter
--- OUTSIDE RECORDS SUMMARY | 2024-11-28 12:42 | XMS_ITS | Encounter Summary ---
Author Organization [facility] Address [address] [facility] [place] [address] Care Team Providers Care Manager Infusion Name Role Phone Gil Higgins MD Primary Care Provider [phone] Gil Higgins MD Unavailable Encounter Details Date Type Department Care Team (Late st Contact Info) Description 05/28/2023 Orders Only [facility] [address] [facility] [address] Khai Snow Social History Tobacco Use Types Packs/Day Years [...] EST Procedure Visit [facility] [address] [place] [address] Adilia Dugan, DPM [address] [place], [place] [address] 05/24/2025 1:00 PM EDT Office Visit [facility] [address] [facility] [address] [place] [address] Jr. Charli Ch, [address] [facility] [address] [place] [address] 07/26/2025 1:00 PM EDT Office Visit [facility] [address] [place] [address] Juana Garcia MD [address] [place] [address] documented as of this encounter Procedures Procedure Name Priority Date/Time Associated Diagnosis Comments XR FOOT 3+ VIEWS LEFT Routine 05/27/2023 10:39 AM EDT documented in this encounter Results * XR foot 3+ views left (05/27/2023 10:39 AM EDT) Anatomical Region Laterality Modality Lower Extremities, Foot Left Radiogra phic Imaging Khai Snow IM XR PROCEDURES Final Resul t documented in this encounter Visit Diagnoses Not on filedocumented in this encounter Care Teams Manager Infusion Relationship Specialty Start Date End Date Gil Higgins MD PCP - General Family Medicine 04/22/23 Gil Higgins MD [address] [place] [address] PCP - ACO Reach 04/15/24 documented as of this encounter
--- OUTSIDE RECORDS SUMMARY | 2024-11-28 12:42 | XMS_ITS | Encounter Summary ---
Author Organization [facility] Address [id number] [address] [place] [address] Care Team Providers Care Browning Processor Name Role Phone Gil Higgins MD Primary Care Provider [phone] Reason for Visit * Reason Comments Med Change Request Encounter Details Date Type Department Care Team (Late st Contact Info) Description 03/07/2024 Refill [facility] [address] [facility] [address] [place] [address] Edgard Villa, BAND BUILDER-MULTIMEDIA SPECIALIST [address] [facility] [place], [place] [id number] S/P CABG (coronary artery bypass graft) Social History Tobacco Use Types Packs/Day Years Used Date Smoking Tobacco: Former Cigarettes Smokeless Tobacco: Never Alcohol Use Standard Drinks/Week Comments Not Currently 0 (1 standard drink = 0.6 oz pur e alcohol) drinks occasionally C Utilities Answer Date Recorded In the past 12 months has e CMGE, gas, oil, or water company threatened to shut off services in your home? No 02/15/2024 PHQ-2 Answer Date Recorded Total Score 0 12/15/2019 PRAPARE - Transportation Answer Date Re corded In the past 12 months, has l ack of transportation kept you from medical appointments or from getting medications? No 11/2023 In the past 12 months, has l ack of transportation kept you from meetings, work, or from getting things needed for daily living? No 02/15/2024 Housing Instability Answer Date Recorde d Are you worried or concerned that in the next two months you may not have stable housing that you own, rent or stay in as a part of a household? No 02/15/2024 Childcare Answer Date Recorded Childcare Unknown 08/18/2018 Employment Answer Date Recorded Employment Unknown 08/18/2018 Hunger Screening Answer Date Recorded Within the past 12 months we worried whether our food would run out before we got money to buy more. Never True 02/17/2024 Within the past 12 months th e food we bought just didn't last and we didn't have money to get more. Never True 02/17/2024 Purpose - Life Answer Date Recorded Purpose and direction in life Unknown Sex and Gender Information Value Date Recorded Sex Assigned at Not on file Legal Sex Male 11:28 AM EDT Gender Identity Not on file Sexual Orientation Not on file documented as of this encounter Plan of Treatment Upcoming Encounters Date Type Department Care Team (Latest Contact Info) Description 01/02/2025 10:00 AM EDT Office Visit [facility] [address] [facility] [address] [place] [address] Juana Winn, BAND BUILDER-MULTIMEDIA SPECIALIST [address] [place] [phone] 01/06/2025 8:00 AM EDT Follow Up Anticoagulation [facility] Medication Management [address] [place] [address] [place] [address] [place] [address], [address] [place] [address] documented as of this encounter Goals Goal Patient Goal Type Associated Problems Recent Progress Patient-Stated? Author <enter goal here> General Yes Kusum Forman, ASHLEY Note: Evaluation of progress towards goal: patient progressing toward safe discharge. documented as of this encounter Visit Diagnoses Diagnosis S/P CABG (coronary artery bypass graft) Postsurgical aortocoronary bypass status documented in this encounter Additional Health Concerns Assessment Noted Time PHQ-9 Depression Total Score: 0 12/15/19 20 11:34 AM EDT documented as of this encounter Care Teams Browning Processor Relationship Specialty Start Date End Date Gil Higgins MD PCP - General Family Medicine 06/10/24 documented as of this encounter
--- OUTSIDE RECORDS SUMMARY | 2024-11-28 12:42 | XMS_ITS | Encounter Summary ---
Author Organization [facility] Address [address] [place] [address] Care Team Providers Care Floor Steward/Stewardess Name Role Phone Gil Higgins MD Primary Care Provider [phone] Gil Higgins MD Unavailable Encounter Details Date Type Department Care Team (Late st Contact Info) Description 06/02/2023 Clinisync Result Encounter [facility] External Department Unsolicited [...] EST Procedure Visit [facility] [address] [place] [address] Adilia Dugan, DPM [address] [place], [place] [address] 05/24/2025 1:00 PM EDT Office Visit [facility] [address] [facility] [address] [place] [address] Jr. Charli Ch, DO [address] [facility] [address] [place] [address] 07/26/2025 1:00 PM EDT Office Visit [facility] [address] [place] [address] Juana Garcia MD [address] [place] [address] documented as of this encounter Procedures Procedure Name Priority Date/Time Associated Diagnosis Comments CT ANKLE LT WO CON 06/02/2023 3: 18 PM EDT documented in this encounter Results * CT ANKLE LT WO CON (06/02/2023 3:18 PM EDT) Anatomical Region Laterality Modality Other 06/02/2023 3:18 PM EDT Narrative 06/02/2023 3:21 [place] [address] CT Scan Report Signed Patient: REMI ZARCO MR#: [id number] : 1945 Acct:[id number] Age/Sex: 77 / M ADM Date: 06/02/23 Loc: CT Attending Dr: Lexi Snow D.P.M. Ordering Physician: Lexi Snow D.P.M. Date of Service: 06/02/23 Procedure(s): CT ankle LT wo con Accession Number(s): [id number] cc: Gil Higgins M.D. The [place] [id number] Patient Name: REMI ZARCO MRN: [id number] date: 1945 Sex: M Assigned Patient Location: CT Current Patient Location: CT Accession/Order Number: [id number] Exam Date: 06/02/2023 13:50 Report Date: 06/02/2023 15:18 At the request of: LEXI SNOW Procedure: CT ankle LT wo con EXAMINATION: CT ankle LT wo con HISTORY: Nonunion, Ankle Degenerative Joint Disorder COMPARISON: 10/31/2022 TECHNIQUE: Multi-planar CT images were created without IV contrast. Dose reduction techniques were achieved by using automated exposure control and/or adjustment of mA and/or kV according to patient size and/or use of iterative reconstruction technique. FINDINGS: BONES: Posterior calcaneal osteotomy. Subtalar fusion, stable. Talonavicular fusion with dorsal surgical staple. Transverse osteotomy and wedged spacer medial cuneiform. Moderate to severe diffuse degenerative changes with joint space narrowing and subchondral mixed lytic and sclerotic changes. No bony bridging across the posterior calcaneus or talocalcaneal joints. Lucency in the distal tibia from bone graft harvesting SOFT TISSUES: Diffuse soft tissue swelling. EFFUSION: None visible. OTHER: Negative. 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 Signed By: 06/02/23 1521 DD/ 1518 TD/TT: Care Transition Mgr: Procedure Note Radiology, Radiologist, MD - 06/02/2023 [place] [address] CT Scan Report Signed Patient: REMI ZARCO AMR#: [id number] : 1945cct:[id number] Age/Sex: 77 / MADM Date: 06/02/23 Loc: CT Attending Dr: Lexi Snow D.P.M. Ordering Physician: Lexi Snow D.P.M. Date of Service: 06/02/23 Procedure(s): CT ankle LT wo con Accession Number(s): [id number] cc: Gil Higgins M.D. The [place] [id number] Patient Name: REMI ZARCO MRN: [facility]:[id number] date: 1945 Sex: M Assigned Patient Location: CT Current Patient Location: CT Accession/Order Number: [id number] Exam Date: 06/02/2023 13:50 Report Date: 06/02/2023 15:18 At the request of: LEXI SNOW Procedure: CT ankle LT wo con EXAMINATION: CT ankle LT wo con HISTORY: Nonunion, Ankle Degenerative Joint Disorder COMPARISON: 10/31/2022 TECHNIQUE: Multi-planar CT images were created without IV contrast. Dose reduction techniques were achieved by using automated exposure controland/or adjustment of mA and/or kV according to patient size and/or use ofiterative reconstruction technique. FINDINGS: BONES: Posterior calcaneal osteotomy. Subtalar fusion, stable.Talonavicular fusion with dorsal surgical staple. Transverse osteotomy and wedged spacer medial cuneiform. Moderate to severe diffuse degenerative changes withjoint space narrowing and subchondral mixed lytic and sclerotic changes. No bony bridging across the posterior calcaneus or talocalcaneal joints. Lucencyin the distal tibia from bone graft harvesting SOFT TISSUES: Diffuse soft tissue swelling. EFFUSION: None visible. OTHER: Negative. 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 Signed By:06/02/23 1521 DD/ 1518 TD/TT: Care Transition Mgr: Generic External Data Provider [facility] Final Result documented in this encounter Visit Diagnoses Not on filedocumented in this encounter Care Teams Floor Steward/Stewardess Relationship Specialty Start Date End Date Gil Higgins MD PCP - General Family Medicine 04/22/23 Gil Higgins MD [address] [place] [address] PCP - ACO Reach 04/15/24 documented as of this encounter
--- OUTSIDE RECORDS SUMMARY | 2024-11-28 12:42 | XMS_ITS | Encounter Summary ---
Author Organization [facility] Address [address] [place] [address] Care Team Providers Care Police Stenographer Name Role Phone Gil Higgins MD Primary Care Provider [phone] Gil Higgins MD Unavailable Encounter Details Date Type Department Care Team (Late st Contact Info) Description 07/21/2024 Orders Only [facility] [place] [facility] [address] [facility] [place] [address] Khai Snow MD [address] [place] [address] [address] [place], [place] [id number] Social History Tobacco Use Types Packs/Day Years [...] Visit [facility] [address] [place] [phone] Adilia Dugan, DPM [address] [place] [address] 05/24/2025 1:00 PM EDT Office Visit [facility] [address] [place] [address] Jr. Charli Ch, DO [address] [place] [address] 07/26/2025 1:00 PM EDT Office Visit [facility] [address] [place] [address] Juana Garcia MD [address] [place] [address] documented as of this encounter Procedures Procedure Name Priority Date/Time Associated Diagnosis Comments XR FOOT 3+ VIEWS RIGHT Routine 07/21/2024 3:12 PM EDT XR FOOT 3+ VIEWS LEFT Routine 07/21/2024 3:12 PM EDT documented in this encounter Results * XR foot 3+ views left (07/21/2024 3:12 PM EDT) Anatomical Region Laterality Modality Lower Extremities, Foot Left Radiogra phic Imaging Khai Snow MD IMG XR PROCEDURES Final Re sult * XR foot 3+ views right (07/21/2024 3:12 PM EDT) Anatomical Region Laterality Modality Lower Extremities, Foot Right Radiogra phic Imaging Khai Snow MD IMG XR PROCEDURES Final Re sult documented in this encounter Visit Diagnoses Not on filedocumented in this encounter Additional Health Concerns Assessment Noted Time PHQ-9 Depression Total Score: 0 01/18/20 24 10:00 AM EST documented as of this encounter Care Teams Police Stenographer Relationship Specialty Start Date End Date Gil Higgins MD PCP - General Family Medicine 04/22/23 Gil Higgins MD [address] [place] [address] PCP - ACO Reach 04/15/24 documented as of this encounter
--- OUTSIDE RECORDS SUMMARY | 2024-11-28 12:42 | XMS_ITS | Encounter Summary ---
Author Organization [facility] Address [address] [place] [address] Care Team Providers Care Real Estate Representative Name Role Phone Gil Higgins MD Primary Care Provider [phone] Gil Higgins MD Unavailable Encounter Details Date Type Department Care Team (Late st Contact Info) Description 06/02/2023 Orders Only [facility] [place] [facility] [address] [facility] [place] [phone] Khai Snow MD [address] [place] [address] [place] [address] Social History Tobacco Use Types Packs/Day Years [...] Visit [facility] [address] [place] [phone] Adilia Dugan, DPM [address] [place], [place] [address] 05/24/2025 1:00 PM EDT Office Visit [facility] [address] [place] [address] Jr. Charli Ch, DO [address] [place] [address] 07/26/2025 1:00 PM EDT Office Visit [facility] [place] [facility] [address] [place] [address] Juana Garcia MD [address] [place] [address] documented as of this encounter Procedures Procedure Name Priority Date/Time Associated Diagnosis Comments CT ANKLE LEFT WO IV CONTRAST Routine 06/02/2023 3:41 PM EDT documented in this encounter Results * CT ankle left wo IV contrast (06/02/2023 3:41 PM EDT) Anatomical Region Laterality Modality Lower Extremities, Ankle Left Compute d Tomography Khai Snow MD IMG CT PROCEDURES Final Re sult documented in this encounter Visit Diagnoses Not on filedocumented in this encounter Care Teams Real Estate Representative Relationship Specialty Start Date End Date Gil Higgins MD PCP - General Family Medicine 04/22/23 Gil Higgins MD [address] [place] [address] PCP - ACO Reach 04/15/24 documented as of this encounter
--- OUTSIDE RECORDS SUMMARY | 2024-11-28 12:42 | XMS_ITS | Encounter Summary ---
Author Organization [facility] Address [address] [place] [address] Care Team Providers Care Enterprise Application Analyst Name Role Phone Gil Higgins MD Primary Care Provider [phone] Gil Higgins MD Unavailable Encounter Details Date Type Department Care Team (Late st Contact Info) Description 05/28/2023 Clinisync Result Encounter [facility] External Department Unsolicited [...] Procedure Visit [facility] [address] [place] [address] Adilia Dugan, DPM [address] [place], [place] [phone] 05/24/2025 1:00 PM EDT Office Visit [facility] [address] [facility] [address] [place] [address] Jr. Charli Ch, DO [address] [facility] [address] [place] [address] 07/26/2025 1:00 PM EDT Office Visit [facility] [address] [place] [address] Juana Garcia MD [address] [place] [address] documented as of this encounter Procedures Procedure Name Priority Date/Time Associated Diagnosis Comments XR FOOT LT MIN 3V 05/28/2023 7:0 9 AM EDT documented in this encounter Results * XR FOOT LT MIN 3V (05/28/2023 7:09 AM EDT) Anatomical Region Laterality Modality Other 05/28/2023 7:09 AM EDT Narrative 05/28/2023 7:11 [place] [address] XRay Report Signed Patient: REMI ZARCO MR#: [id number] : 1945 Acct:[id number] Age/Sex: 77 / M ADM Date: 05/27/23 Loc: EC Attending Dr: Lexi Snow D.P.M. Ordering Physician: Lexi Snow D.P.M. Date of Service: 05/27/23 Procedure(s): XR foot LT min 3V Accession Number(s): [id number] cc: Lexi Snow D.P.M.; Gil Higgins M.D. The [address] [id number] Patient Name: REMI ZARCO MRN: [id number] date: 1945 Sex: M Assigned Patient Location: EC Current Patient Location: Accession/Order Number: [id number] Exam Date: 05/27/2023 13:34 Report Date: 05/28/2023 07:09 At the request of: LEXI SNOW Procedure: XR foot LT min 3V PROCEDURE: XR foot LT min 3V HISTORY: LEFT FOOT PAIN COMPARISON: XR foot left 02/18/2023 FINDINGS: BONES:Prior posterior calcaneal osteotomy and fusion. Fusion of the talocalcaneal joints and talonavicular joint. Osteotomy and wedge placement within the medial cuneiform. Bone staple along dorsal margin of the talonavicular joints with fracture of the posterior leg. Flattening of the plantar arch. Moderate degenerative changes of the first through fourth tarsal-metatarsal joints. Mild degenerative changes first metatarsophalangeal joints and flexion of the second through 5th toes. SOFT TISSUES:No visible soft tissue swelling. EFFUSION:None visible. OTHER: Negative. XR/XR foot LT min 3V IMPRESSION: 1. Stable surgical changes and prior fracture of the dorsal bone staple. 2. Grossly stable pes planus and multifocal degenerative changes. Electronically authenticated by: GIOVANNY RAJPUT Date: 05/28/2023 07:09 Dictated By: Giovanny Rajput M.D. Signed By: 05/28/2311 DD/ 8 TD/TT: Biotechnician: Procedure Note Radiology, Radiologist, MD - 05/28/2023 [place] [address] XRay Report Signed Patient: REMI ZARCO AMR#: [id number] : 1945cct:[id number] Age/Sex: 77 / MADM Date: 05/27/23 Loc: EC Attending Dr: Lexi Snow D.P.M. Ordering Physician: Lexi Snow D.P.M. Date of Service: 05/27/23 Procedure(s): XR foot LT min 3V Accession Number(s): [id number] cc: Lexi Snow D.P.M.; Gil Higgins M.D. The [place] [address] Patient Name: REMI ZARCO MRN: [id number] date: 1945 Sex: M Assigned Patient Location: Current Patient Location: Accession/Order Number: [id number] Exam Date: 05/27/2023 13:34 Report Date: 05/28/2023 07:09 At the request of: LEXI SNOW Procedure: XR foot LT min 3V PROCEDURE: XR foot LT min 3V HISTORY: LEFT FOOT PAIN COMPARISON: XR foot left 02/18/2023 FINDINGS: BONES:Prior posterior calcaneal osteotomy and fusion. Fusion of the talocalcaneal joints and talonavicular joint. Osteotomy and wedgeplacement within the medial cuneiform. Bone staple along dorsal margin of the talonavicular joints with fracture of the posterior leg. Flattening of the plantar arch. Moderate degenerative changes of the first through fourth tarsal-metatarsal joints. Mild degenerative changes firstmetatarsophalangeal joints and flexion of the second through 5th toes. SOFT TISSUES:No visible soft tissue swelling. EFFUSION:None visible. OTHER: Negative. XR/XR foot LT min 3V IMPRESSION: 1. Stable surgical changes and prior fracture of the dorsal bone staple. 2. Grossly stable pes planus and multifocal degenerative changes. Electronically authenticated by: GIOVANNY RAJPUT Date: 05/28/2023 07:09 Dictated By: Giovanny Rajput M.D. Signed By:05/28/23 0711 DD/ 0709 TD/TT: Biotechnician: Generic External Data Provider [facility] Final Result documented in this encounter Visit Diagnoses Not on filedocumented in this encounter Care Teams Enterprise Application Analyst Relationship Specialty Start Date End Date Gil Higgins MD PCP - General Family Medicine 04/22/23 Gil Higgins MD [address] [facility] [address] PCP - ACO Reach 04/15/24 documented as of this encounter
--- OUTSIDE RECORDS SUMMARY | 2024-11-28 12:42 | XMS_ITS | Encounter Summary ---
Author Organization [facility] Address [address] [facility] [place] [address] Care Team Providers Care Writer Name Role Phone Gil Higgins MD Primary Care Provider [phone] Gil Higgins MD Primary Care Provider [phone] Gil Higgins MD Unavailable Encounter Details Date Type Department Care Team (Late st Contact Info) Description 02/19/2023 Clinisync Result Encounter [facility] External Department Unsolicited [...] Visit [facility] [address] [place] [address] Adilia Dugan, DPRatna [address] [place], [place] [address] 05/24/2025 1:00 PM EDT Office Visit [facility] [address] [facility] [address] [place] [address] Jr. Charli Ch, DO [address] [facility] [address] [place] [address] 07/26/2025 1:00 PM EDT Office Visit [facility] [address] [place] [address] Juana Garcia MD [address] [place] [address] documented as of this encounter Procedures Procedure Name Priority Date/Time Associated Diagnosis Comments XR FOOT LT MIN 3V 02/19/2023 11: 15 PM EST documented in this encounter Results * XR FOOT LT MIN 3V (02/19/2023 11:15 PM EST) Anatomical Region Laterality Modality Other 02/19/2023 11:1 5 PM EST Narrative 02/19/2023 11:18 PM EST The [address] [address] XRay Report Signed Patient: TITI ZARCO MR#: [id number] : 1945 Acct:[id number] Age/Sex: 77 / M ADM Date: 02/18/23 Loc: RAD Attending Dr: Lexi Snow D.P.M. Ordering Physician: Lexi Snow D.P.M. Date of Service: 02/18/23 Procedure(s): XR foot LT min 3V Accession Number(s): [id number] cc: Lexi Snow D.P.M.; Gil Higgins M.D. The [address] [address] Patient Name: TITI ZARCO MRN: [id number] date: 1945 Sex: M Assigned Patient Location: RAD Current Patient Location: Accession/Order Number: [id number] Exam Date: 02/18/2023 13:42 Report Date: 02/19/2023 23:15 At the request of: LEXI SNOW Procedure: XR foot LT min 3V EXAM: XR foot LT min 3V HISTORY: LEFT FOOT PAIN COMPARISON: 11/26/2022 TECHNIQUE: 4 view study FINDINGS: Again, there are complex postoperative changes with a calcaneal osteotomy bridged by 2 screws. The osteotomy line remains visible. An osteotomy with a wedge implant of the medial cuneiform is again demonstrated, stable in appearance. A staple bridges the talonavicular articulation, one of the limits fractured. A screw bridges the talonavicular articulation. Lucency within the distal navicular is seen adjacent to the screw. The screw head extends approximately 6 mm proud of the navicular cortex, unchanged from prior examination. An additional screw extends through the talar neck into the calcaneus. Again, this screw is fractured. A pes planus deformity is noted. There are degenerative changes at the tarsometatarsal articulation, most marked at the first tarsometatarsal joint. Hammertoe deformity of the second through fifth toes. XR/XR foot LT min 3V IMPRESSION: Stable postoperative findings of the hindfoot and midfoot. Osteoarthritis. Electronically authenticated by: Amna ATKINS Date: 02/19/2023 23:15 Dictated By: Abimbola Atkins M.D. Signed By: 02/19/232317 DD/ 14 TD/TT: Brown Stock Washer: Procedure Note Radiology, Radiologist, MD - 02/19/2023 [place] [address] XRay Report Signed Patient: TITI ZARCO AMR#: [id number] : 1945cct:[id number] Age/Sex: 77 / MADM Date: 02/18/23 Loc: RAD Attending Dr: Lexi Snow D.P.M. Ordering Physician: Lexi Snow D.P.M. Date of Service: 02/18/23 Procedure(s): XR foot LT min 3V Accession Number(s): [id number] cc: Lexi Snow D.P.M.; Gil Higgins M.D. The [place] [address] Patient Name: TITI ZARCO MRN: [facility]:[id number] date: 1945 Sex: M Assigned Patient Location: [facility] Current Patient Location: Accession/Order Number: [id number] Exam Date: 02/18/2023 13:42 Report Date: 02/19/2023 23:15 At the request of: LEXI SNOW Procedure: XR foot LT min 3V EXAM: XR foot LT min 3V HISTORY: LEFT FOOT PAIN COMPARISON: 11/26/2022 TECHNIQUE: 4 view study FINDINGS: Again, there are complex postoperative changes with a calcaneal osteotomy bridged by 2 screws. The osteotomy line remains visible. An osteotomy with a wedge implant of the medial cuneiform is again demonstrated, stablein appearance. A staple bridges the talonavicular articulation, one of thelimits fractured. A screw bridges the talonavicular articulation. Lucency withinthe distal navicular is seen adjacent to the screw. The screw head extends approximately 6 mm proud of the navicular cortex, unchanged from prior examination. An additional screw extends through the talar neck into the calcaneus. Again, this screw is fractured. A pes planus deformity is noted. There are degenerative changes at the tarsometatarsal articulation, most marked at the first tarsometatarsaljoint. Hammertoe deformity of the second through fifth toes. XR/XR foot LT min 3V IMPRESSION: Stable postoperative findings of the hindfoot and midfoot. Osteoarthritis. Electronically authenticated by: Amna ATKINS Date: 02/19/2023 23:15 Dictated By: Abimbola Atkins M.D. Signed By:02/19/238 DD/ TD/TT: Brown Stock Washer: us Generic External Data Provider [facility] Final Result documented in this encounter Visit Diagnoses Not on filedocumented in this encounter Care Teams Writer Relationship Specialty Start Date End Date Gil Higgins MD PCP - General Family Medicine 10/13/22 04/21/23 Gil Higgins MD PCP - General Family Medicine 04/22/23 Gil Higgins MD [address] [place] [address] PCP - ACO Reach 04/15/24 documented as of this encounter
--- OUTSIDE RECORDS SUMMARY | 2024-11-28 12:43 | XMS_ITS | Encounter Summary ---
Author Organization [facility] Address [address] [place] [address] Care Team Providers Care Optics Test Technician Name Role Phone Gil Higgins MD Primary Care Provider [phone] Gil Higgins MD Primary Care Provider [phone] Gil Higgins MD Unavailable Encounter Details Date Type Department Care Team (Late Contact Info) Description 03/03/2023 Orders Only [facility] [address] [place] [address] Gil Higgins MD [address] [place] [address] Social History Tobacco Use Types Packs/Day Years [...] Encounters Date Type Department Care Team (Late Contact Info) Description 03/28/2025 8:30 AM EST Procedure Visit [facility] [address] [place] [address] Adilia Dugan W, DPM [address] [place] [address] 05/24/2025 1:00 PM EDT Office Visit [facility] [address] [place] [address] Jr. Charli Ch, DO [address] [place] [address] 07/26/2025 1:00 PM EDT Office Visit [facility] [address] [place] [address] Juana Garcia MD [address] [place] [address] documented as of this encounter Procedures Procedure Name Priority Date/Time Associated Diagnosis Comments MISCELLANEOUS LAB TEST Routine 02/10/2023 2:33 PM EST documented in this encounter Results * - Miscellaneous Test (02/10/2023 2:33 PM EST) Gil Higgins MD LAB BLOOD ORDERABLES Final Resul t documented in this encounter Visit Diagnoses Not on filedocumented in this encounter Care Teams Optics Test Technician Relationship Specialty Start Date End Date Gil Higgins MD PCP - General Family Medicine 10/13/22 04/21/23 Gil Higgins MD PCP - General Family Medicine 04/22/23 Gil Higgins MD [address] [place] [address] PCP - ACO Reach 04/15/24 documented as of this encounter
--- OUTSIDE RECORDS SUMMARY | 2024-11-28 12:43 | XMS_ITS | Clinical Summary ---
Author Organization [facility] Address [address] [place] [address] Care Team Providers Care Sodder Name Role Phone Gil Higgins MD Primary Care Provider [phone] Allergies Active Allergy Reactions Criticality Noted Date Comments Morphine Other: See Comments 01/04/2018 Makes patient skin hurt Medications levothyroxine (SYNTHROID) 100 mcg tablet Take 100 mcg by mouth daily before breakfast. Active meloxicam (MOBIC) 15 mg tablet Take 15 mg by mouth once daily. Been taking one every other day 12/09/2017 Active eplerenone (INSPRA) 25 mg tablet Take 25 mg by mouth once daily. 10/05/2017 Active magnesium hydroxide (MOM) 400 mg/5 mL suspension Take 30 mL by mouth once daily as needed for Constipatio n. 473 mL 04/08/2018 Active warfarin (COUMADIN) 4 mg tablet Take 2-4 mg by mouth. 11/27/2020 Active Active Problems Problem Noted Date Diagnosed Date Difficulty walking 07/10/2021 PTTD (posterior tibial tendon dysfunction) 07/10 Acquired valgus deformity of left ankle 07/11/19 22 DJD (degenerative joint disease), ankle and foot , left 07/10/2021 Status post replacement of left shoulder joint 0 05/13/2018 Rotator cuff tear arthropathy, right 01/27/2018 Rotator cuff tear arthropathy, left 01/27/2018 Rotator cuff arthropathy of both shoulders 01/04 Complete tear of left rotator cuff 05/21/2015 Complete tear of right rotator cuff 05/21/2015 Primary osteoarthritis of left shoulder 05/21/19 16 Family History Medical History Relation Comments Heart Attack Father Relation Status Comments Father Social History Tobacco Use Types Packs/Day Years Used Date Smoking Tobacco: Former Cigarettes 1 10 1 979 - 1988 Smokeless Tobacco: Never Alcohol Use Standard Drinks/Week Comments Yes 0 (1 standard drink = 0.6 oz pur e alcohol) rare PHQ-2 Answer Date Recorded PHQ2 Score 0 04/02/2018 Area Deprivation Index Answer Date Radhames rded National Score (1-100), lower number is lower ri sk 63 03/27/2022 State Score (1-10), lower number is lower risk N ot on file 03/27/2022 Data from: https://www.neighborhoodatlas.medicine.[facility]/. Last address used for calculation [address] 03/27/2022 Sex and Gender Information Value Date Recorded Sex Assigned at Not on file Legal Sex Male 8:29 AM EST Gender Identity Not on file Sexual Orientation Not on file Last Filed Vital Signs Vital Sign Reading Time Taken Comments Blood Pressure 126/67 04/08/2018 7:44 AM EST Pulse 81 04/08/2018 7:44 AM EST Temperature 36.4 C (97.6 F) 04/08/2018 7:44 AM EST Respiratory Rate 16 04/08/2018 7:44 AM EST Oxygen Saturation 97% 04/08/2018 7:44 AM EST Inhaled Oxygen Concentration - - Weight 116 kg (255 lb 11.7 oz) 04/02/2018 6:32 P M EST Height 185 cm (6' 0.84 ) 04/02/2018 6:32 PM EST Body Mass Index 33.89 04/02/2018 6:32 PM EST Plan of Treatment Health Maintenance Due Date Last Done Comments Anxiety Screening 06/07/1963 Depression Screening 06/07/1963 DTaP,Tdap,Td Vaccine (1 - Tdap) 1964 Pneumococcal Vaccine: 50+ (1 of 1 - PCV) 06/07/1995 RSV Vaccine (1 - 1-dose 75+ series) 2020 Shingrix Vaccine (2 of 2) 08/29/2021 07/04/2021 Advance Directive Discussion 03/09/2024 Diabetes Screening 04/09/2024 04/09/2021, 0 07/02/2020, 12/17/2018, Additional history exists Influenza Vaccine (#1) 2024 0, 12/07/2018, 12/16/2017, Additional history exists Colonoscopy Discontinued 04/25/2021, 04/25/2021 Colorectal Cancer Screening Discontinued CT Colonography Discontinued Cologuard (FIT-DNA) Discontinued Fecal Occult Blood Discontinued Sigmoidoscopy Discontinued Medical Devices Implanted Type Area Wind Farm Designer Device Identifier Shelf Expiration Date Model / Serial / Lot Head Rsp 36mm Neutral Glenoid Retain Screw - [id number] Implanted:Qty : 1 on 04/02/2018 by Latrell Moctezuma MD at [facility] Joint - Shoulder Left: Bone - Shoulder [employer] 02/03/2024 508-36-10 1 / / [id number] Insert Rsp Djo Surgical Standard Hxe+ Socket Sterile Humeral - [id number] Implanted:Qty : 1 on 04/02/2018 by Latrell Moctezuma MD at [facility] Joint - Shoulder Left: Bone - Shoulder [employer] 05/22/2022 509-00-03 6 / / [id number] Stem Altivate Djo Surgical 14 Standard 108mm Humeral Sterile Shoulder - [id number] Implanted:Qty : 1 on 04/02/2018 by Latrell Moctezuma MD at [facility] Joint - Shoulder Left: Bone - Shoulder [employer] 10/28/2023 530-14-10 8 / / [id number] Baseplate Rsp P2 30mm Glenoid Sterile - [id number] Implanted:Qty : 1 on 04/02/2018 by Davin Caraballo (Hist) at [facility] Plate Left: Bone - Shoulder [employer] 12/19/2023 508-32-20 4 / / [id number] Screw Rsp 5mm 26mm Bone Lock Glenoid Baseplate Shoulder - [id number] Implanted:Qty : 1 on 04/02/2018 by Latrell Moctezuma MD at [facility] Screw Left: Bone - Shoulder [employer] 11/05/2023 506-03-12 6 / / [id number] Screw Rsp 5mm 30mm Bone Lock Glenoid Baseplate Shoulder - [id number] Implanted:Qty : 1 on 04/02/2018 by Latrell Moctezuma MD at [facility] Screw Left: Bone - Shoulder [employer] 02/16/2024 506-03-13 0 / / [id number] Screw Rsp 5mm 26mm Bone Lock Glenoid Baseplate Shoulder - [id number] Implanted:Qty : 1 on 04/02/2018 by Latrell Moctezuma MD at [facility] Screw Left: Bone - Shoulder [employer] 02/04/2024 506-03-12 6 / / [id number] Screw Rsp 5mm 18mm Bone Lock Glenoid Baseplate Shoulder - [id number] Implanted:Qty : 1 on 04/02/2018 by Latrell Moctezuma MD at [facility] Screw Left: Bone - Shoulder [employer] 02/06/2024 506-03-11 8 / [id number] Procedures Procedure Name Priority Date/Time Associated Diagnosis Comments BASIC METABOLIC PANEL STAT 04/06/2018 9:45 AM EST from Last 3 Months or Most Recently Relevant to Health Maintenance Results * (ABNORMAL) BASIC METABOLIC PNL (04/06/2018 9:45 AM EST) Glucose 99 74 - 99 mg/dL 04/06/2018 11:35 AM EST [facility] Comment: The [place] Diabetes Association (ADA) provides guidance for cutoff values for fasting glucose and random glucose. The ADA defines fasting as no caloric intake for at least 8 hours. Fasting plasma glucose results between 100 to 125 mg/dL indicate increased risk for diabetes (prediabetes). Fasting plasma glucose results greater than or equal to 126 mg/dL meet the criteria for diagnosis of diabetes. In the absence of unequivocal hyperglycemia, results should be confirmed by repeat testing. In a patient with classic symptoms of hyperglycemia or hyperglycemic crisis, random plasma glucose results greater than or equal to 200 mg/dL meet the criteria for diagnosis of diabetes. Reference: Standards of Medical Care in Diabetes 2016, [place] Diabetes Association. Diabetes Care. 2016.39(Suppl 1). BUN 18 9 - 24 mg/dL 04/06/2018 11:35 AM EST [facility] Creatinine 0.95 0.73 - 1.22 mg/dL 04/06/2018 11:35 AM EST [facility] Sodium 134(L) 136 - 144 mmol/L 04/06/2018 11:35 AM EST [facility] Potassium 4.1 3.7 - 5.1 mmol/L 04/06/2018 11:35 AM EST [facility] Chloride 97 97 - 105 mmol/L 04/06/2018 11:35 AM EST [facility] CO2 26 22 - 30 mmol/L 04/06/2018 11:35 AM EST [facility] Anion Gap 11 9 - 18 mmol/L 04/06/2018 11:35 AM EST [facility] Calcium 9.0 8.5 - 10.2 mg/dL 04/06/2018 11:35 AM EST [facility] eGFR- >60 04/06/2018 11:35 AM EST [facility] eGFR-All Other Races >60 . 04/06/2018 11:35 AM EST [facility] Comment: eGFR (Estimated GFR) Units of measure: mL/min/1.73 meters squared eGFR is derived from the reexpressed MDRD Study equation using the following parameters: serum creatinine, age, gender and race. The creatinine assay has been calibrated to be traceable to IDMS. An eGFR <60 mL/min/1.73m2 for >3 months is consistent with chronic kidney disease. Refer to KDOQI guidelines for clinical interpretation. In patients with unstable renal function, e.g. those with acute kidney injury, the eGFR may not accurately reflect actual GFR. Blood specimen (specimen) BLOOD SPECIMEN / Unknown 04/06/2018 9:45 AM EST 04/06/2018 10:18 AM EST Nia Henderson PA-C LABORATORY Fin al Result [facility] [address] [place] [address] from Last 3 Months or Most Recently Relevant to Health Maintenance Insurance MEDICARE BLUE CARD TRADITIONAL OOS MMO MEDICARE SUPPLEMENT Advance Directives Documents on File Type Date Recorded Patient Testing Machine Operator Expl anation Advance Directive(s) 04/02/2018 11:18 AM Care Teams Sodder Relationship Specialty Start Date End Date Gil Higgins MD [address] [place] [address] PCP - General Family Medicine 02/25/18
--- OUTSIDE RECORDS SUMMARY | 2024-11-28 12:43 | XMS_ITS | Encounter Summary ---
Author Organization [facility] Address [address] [place] [address] Care Team Providers Care Loss Prevention Analyst Name Role Phone Gil Higgins MD Primary Care Provider [phone] Gil Higgins MD Unavailable Encounter Details Date Type Department Care Team (Late st Contact Info) Description 10/19/2023 Clinisync Result Encounter [facility] External Department Unsolicited [...] Procedure Visit [facility] [address] [place] [phone] Adilia Dugan, DPM [address], [place] [id number] 05/24/2025 1:00 PM EDT Office Visit [facility] [address] [facility] [address] [place] [phone] Jr. Charli Ch, DO [address] [facility] [address] [place] [address] 07/26/2025 1:00 PM EDT Office [facility] [address] [place] [address] Juana Garcia MD [address] [place] [address] documented as of this encounter Procedures Procedure Name Priority Date/Time Associated Diagnosis Comments XR FOOT LT MIN 3V 10/19/2023 7:0 8 AM EDT documented in this encounter Results * XR FOOT LT MIN 3V (10/19/2023 7:08 AM EDT) Anatomical Region Laterality Modality Other 10/19/2023 7:08 AM EDT Narrative 10/19/2023 7:11 [place] [address] XRay Report Signed Patient: REMI ZARCO MR#: [id number] : 1945 Acct:[id number] Age/Sex: 78 / M ADM Date: 10/14/23 Loc: EC Attending Dr: Lexi Snow D.P.M. Ordering Physician: Lexi Snow D.P.M. Date of Service: 10/14/23 Procedure(s): XR foot LT min 3V Accession Number(s): [id number] cc: Lexi Snow D.P.M.; Gil Higgins M.D. The [address] [address] Patient Name: REMI ZARCO MRN: [id number] date: 1945 Sex: M Assigned Patient Location: EC Current Patient Location: Accession/Order Number: [id number] Exam Date: 10/14/2023 13:10 Report Date: 10/19/2023 07:08 At the request of: LEXI SNOW Procedure: XR foot LT min 3V PROCEDURE: XR foot LT min 3V, XR ankle LT min 3V COMPARISON: 05/27/2023 HISTORY: LEFT FOOT PAIN FINDINGS: BONES:Stable postsurgical and degenerative changes. Posterior calcaneal osteotomy transfixed with 2 screws which cross the posterior talocalcaneal joint. Transverse osteotomy and wedged spacer in the medial cuneiform. Single staple across the talonavicular joint with fracture, unchanged. Single screw in the medial midfoot hindfoot transfixing the navicular and talus with fracture, stable. Single screw transfixing the anterior talocalcaneal joint. Moderate to severe diffuse degenerative changes with [id number] articulation of the tibiotalar joint. Lucency in the distal tibia from bone graft harvesting. SOFT TISSUES:Negative. No visible soft tissue swelling. EFFUSION:None visible. OTHER: Negative. XR/XR foot LT min 3V IMPRESSION: Stable exam with some partial bony bridging along the posterior inferior calcaneal osteotomy Electronically authenticated by: YOU NEWELL Date: 10/19/2023 07:08 Dictated By: You Newell M.D. Signed By: 10/19/23710 DD/ 7 TD/TT: Territory Sales Manager Medical: Procedure Note Radiology, Radiologist, MD - 10/19/2023 [place] [address] XRay Report Signed Patient: REMI ZARCO AMR#: [id number] : 1945cct:[id number] Age/Sex: 78 / MADM Date: 10/14/23 Loc: EC Attending Dr: Lexi Snow D.P.M. Ordering Physician: Lexi Snow D.P.M. Date of Service: 10/14/23 Procedure(s): XR foot LT min 3V Accession Number(s): [id number] cc: Lexi Snow D.P.M.; Gil Higgins M.D. The [place] [address] Patient Name: REMI ZARCO MRN: [id number] date: 1945 Sex: M Assigned Patient Location: EC Current Patient Location: Accession/Order Number: [id number] Exam Date: 10/14/2023 13:10 Report Date: 10/19/2023 07:08 At the request of: LEXI SNOW Procedure: XR foot LT min 3V PROCEDURE: XR foot LT min 3V, XR ankle LT min 3V COMPARISON: 05/27/2023 HISTORY: LEFT FOOT PAIN FINDINGS: BONES:Stable postsurgical and degenerative changes. Posterior calcaneal osteotomy transfixed with 2 screws which cross the posterior talocalcaneal joint. Transverse osteotomy and wedged spacer in the medial cuneiform.Single staple across the talonavicular joint with fracture, unchanged. Singlescrew in the medial midfoot hindfoot transfixing the navicular and talus withfracture, stable. Single screw transfixing the anterior talocalcaneal joint.Moderate to severe diffuse degenerative changes with [id number] articulation of the tibiotalar joint. Lucency in the distal tibia from bone graft harvesting. SOFT TISSUES:Negative. No visible soft tissue swelling. EFFUSION:None visible. OTHER: Negative. XR/XR foot LT min 3V IMPRESSION: Stable exam with some partial bony bridging along the posterior inferior calcaneal osteotomy Electronically authenticated by: YOU NEWELL Date: 10/19/2023 07:08 Dictated By: You Newell M.D. Signed By:10/19/23710 DD/ TD/TT: Territory Sales Manager Medical: us Generic External Data Provider [facility] Final Result documented in this encounter Visit Diagnoses Not on filedocumented in this encounter Care Teams Loss Prevention Analyst Relationship Specialty Start Date End Date Gil Higgins MD PCP - General Family Medicine 04/22/23 Gil Higgins MD [address] [address] PCP - ACO Reach 04/15/24 documented as of this encounter
--- OUTSIDE RECORDS SUMMARY | 2024-11-28 12:43 | XMS_ITS | Encounter Summary ---
Author Organization [employer] Address [id number] [address] [place] [address] Care Team Providers Care Digitizer Name Role Phone Gil Higgins MD Primary Care Provider [phone] Encounter Details Date Type Department Care Team (Late st Contact Info) Description 11/01/2019 Telephone [facility] [address] [facility] [address] [place] [phone] Yolanda Eng, ASHLEY Social History Tobacco Use Types Packs/Day Years Used Date Smoking Tobacco: Former Cigarettes Smokeless Tobacco: Never Alcohol Use Standard Drinks/Week Comments Yes 0 (1 standard drink = 0.6 oz pur e alcohol) drinks occasionally Childcare Answer Date Recorded Childcare Unknown 08/18/2018 Employment Answer Date Recorded Employment Unknown 08/18/2018 Sex and Gender Information Value Date Recorded Sex Assigned at Not on file Legal Sex Male 11:28 AM EDT Gender Identity Not on file Sexual Orientation Not on file COVID-19 Exposure Response Date Recorded In the last month, have you been in contact with someone who was confirmed or suspected to have Coronavirus / COVID-19? No / Unsure 10/27/2019 12:40 PM EDT documented as of this encounter Miscellaneous Notes * Telephone Encounter - Yolanda Eng RN - 11/01/2019 1:44 PM EDT Holter moniter results called to pt. Per [facility]'s instructions stop cardizem and continue Ziac. Yolanda Eng RN 11/01/19 [id number] * Telephone Encounter - Valarie Avina APRN-PHILOSOPHY LECTURER - 11/01/2019 1:44 PM EDT signed documented in this encounter Plan of Treatment Upcoming Encounters Date Type Department Care Team (Latest Contact Info) Description 01/02/2025 10:00 AM EDT Office Visit [facility] [address] [place] [address] Juana Winn, JEAN MARIE-PHILOSOPHY LECTURER [address] [place] [phone] 01/06/2025 8:00 AM EDT Follow Up Anticoagulation [facility] Pharm[facility] Medication Management [address] [place] [address] Justin Rangel MD [address] [place] [address], [address] [place] [address] documented as of this encounter Visit Diagnoses Not on filedocumented in this encounter Care Teams Digitizer Relationship Specialty Start Date End Date Gil Higgins MD PCP - General Family Medicine 06/10/24 documented as of this encounter
--- OUTSIDE RECORDS SUMMARY | 2024-11-28 12:43 | XMS_ITS | Encounter Summary ---
Author Organization [employer] Address [id number] [address] [facility] [place] [address] Care Team Providers Care Family Engagement Specialist Name Role Phone Gil Higgins MD Primary Care Provider [phone] Encounter Details Date Type Department Care Team (Late st Contact Info) Description 12/31/2023 Orders Only [facility] [address] [place] [phone] Suha Pyle RN Social History Tobacco Use Types Packs/Day Years Used Date Smoking Tobacco: Former Cigarettes Smokeless Tobacco: Never Alcohol Use Standard Drinks/Week Comments Yes 0 (1 standard drink = 0.6 oz pur e alcohol) drinks occasionally PHQ-2 Answer Date Recorded Total Score 0 12/15/2019 Childcare Answer Date Recorded Childcare Unknown 08/18/2018 Employment Answer Date Recorded Employment Unknown 08/18/2018 Hunger Screening Answer Date Recorded Within the past 12 months we worried whether our food would run out before we got money to buy more. Never True 12/19/2022 Within the past 12 months th e food we bought just didn't last and we didn't have money to get more. Never True 12/19/2022 Purpose - Life Answer Date Recorded Purpose [...] Description 01/02/2025 10:00 AM EDT Office Visit [facility] [address] [place] [address] Juana Winn, YOKE PRESSER-TAX ASSESSOR [address] [place] [address] 01/06/2025 8:00 AM EDT Follow Up [facility] Medication Management [address] [place] [address] Justin Rangel MD [address] [facility], [address] [place] [address] documented as of this encounter Visit Diagnoses Not on filedocumented in this encounter Additional Health Concerns Assessment Noted Time PHQ-9 Depression Total Score: 0 12/15/19 20 11:34 AM EDT documented as of this encounter Care Teams Family Engagement Specialist Relationship Specialty Start Date End Date Gil Higgins MD PCP - General Family Medicine 06/10/24 documented as of this encounter
--- OUTSIDE RECORDS SUMMARY | 2024-11-28 12:43 | XMS_ITS | Encounter Summary ---
Author Organization [facility] Address [address] [facility] [place] [address] Care Team Providers Care Education Associate Name Role Phone Gil Higgins MD Primary Care Provider [phone] Gil Higgins MD Unavailable Encounter Details Date Type Department Care Team (Late st Contact Info) Description 11/18/2023 Clinisync Result Encounter [facility] External Department Unsolicited [...] Date Recorded Patient Health Questionnaire-2 Score 0 10/28/2023 Sex and Gender Information Value Date Recorded Sex Assigned at Not on file Legal Sex Male 7:30 PM EDT Gender Identity Not on file Sexual Orientation Not on file documented as of this encounter Plan of Treatment Upcoming Encounters Date Type Department Care Team (Late st Contact Info) Description 03/28/2025 8:30 AM EST Procedure Visit [facility] [address] [place] [phone] Adilia Dugan, DPM [address] [place], [place] [address] 05/24/2025 1:00 PM EDT Office Visit [facility] [address] [facility] [address] [place] [address] Jr. Charli Ch, [address] [place] [address] 07/26/2025 1:00 PM EDT Office Visit [facility] [address] [place] [address] Juana Garcia MD [address] [place] [address] documented as of this encounter Procedures Procedure Name Priority Date/Time Associated Diagnosis Comments CT ANKLE LT WO CON 11/18/2023 1: 43 PM EDT [facility] LIVER PANEL Routine 11/18/2023 1:30 PM EDT ALL THYROXINE (T4) FREE Routine 11/18/2023 1:30 PM EDT ALL THYROID STIM HORMONE Routine 11/18/2023 1:30 PM EDT ALL T3 FREE Routine 11/18/2023 1:30 PM EDT ALL MAGNESIUM Routine 11/18/2023 1:30 PM EDT ALL LIPID PROFILE (FASTING) Routine 11/18/2023 1:30 PM EDT ALL CBC WITH AUTO DIFF Routine 11/18/2023 1:30 PM EDT ALL BASIC METABOLIC PANEL Routine 11/18/2023 1:30 PM EDT documented in this encounter Results * CT ANKLE LT WO CON (11/18/2023 1:43 PM EDT) Anatomical Region Laterality Modality Other 11/18/2023 1:43 PM EDT Narrative 11/18/2023 1:45 PM EDT The [address] [address] [address] Scan Report Signed Patient: TITI ZARCO MR#: [id number] : 1945 Acct:[id number] Age/Sex: 78 / M ADM Date: 11/18/23 Loc: CT Attending Dr: Lexi Snow D.P.M. Ordering Physician: Lexi Snow D.P.M. Date of Service: 11/18/23 Procedure(s): CT ankle LT wo con Accession Number(s): [id number] cc: Gil Higgins M.D. [place] [address] Patient Name: TITI ZARCO MRN: [id number] date: 1945 Sex: M Assigned Patient Location: CT Current Patient Location: LAB Accession/Order Number: [id number] Exam Date: 11/18/2023 13:02 Report Date: 11/18/2023 13:43 At the request of: LEXI SNOW Procedure: CT ankle LT wo con EXAMINATION: CT ankle LT wo con HISTORY: djd left ankle COMPARISON: 05/23/2023 TECHNIQUE: Multi-planar CT images were created without IV contrast. Dose reduction techniques were achieved by using automated exposure control and/or adjustment of mA and/or kV according to patient size and/or use of iterative reconstruction technique. FINDINGS: BONES: Stable postsurgical and degenerative changes. Posterior calcaneal osteotomy transfixed with 2 cannulated screws extending across the posterior talocalcaneal joint. Incomplete bony bridging with no interval bone formation. Fusion of the anterior talocalcaneal joint with a single screw. Incomplete bony bridging. Single surgical staple dorsal talonavicular joint with associated mechanical failure of the stable, unchanged. Wedge spacer medial cuneiform. Moderate to severe diffuse degenerative changes of the midfoot and hindfoot with joint space narrowing with bony remodeling marginal osteophyte formation and subchondral cystic changes. Total knee arthroplasty. SOFT TISSUES: Negative. No visible soft tissue swelling. EFFUSION: None visible. OTHER: Negative. CT/CT ankle LT wo con IMPRESSION: Stable postsurgical and degenerative changes with no new significant interval bone formation or evidence of bony bridging Electronically authenticated by: YOU NEWELL Date: 11/18/2023 13:43 Dictated By: You Newell M.D. Signed By: 11/18/23 1345 DD/ 1343 TD/TT: Rear Load Truck Driver: Procedure Note Radiology, Radiologist, MD - 11/18/2023 [place] [address] [place] Scan Report Signed Patient: TITI ZARCO AMR#: [id number] : 1945cct:[id number] Age/Sex: 78 / MADM Date: 11/18/23 Loc: CT Attending Dr: Lexi Snow D.P.M. Ordering Physician: Lexi Snow D.P.M. Date of Service: 11/18/23 Procedure(s): CT ankle LT wo con Accession Number(s): [id number] cc: Gil Higgins M.D. The [place] [address] Patient Name: TITI ZARCO MRN: [facility]:[id number] date: 1945 Sex: M Assigned Patient Location: CT Current Patient Location: LAB Accession/Order Number: [id number] Exam Date: 11/18/2023 13:02 Report Date: 11/18/2023 13:43 At the request of: LEXI SNOW Procedure: CT ankle LT wo con EXAMINATION: CT ankle LT wo con HISTORY: djd left ankle COMPARISON: 05/23/2023 TECHNIQUE: Multi-planar CT images were created without IV contrast. Dose reduction techniques were achieved by using automated exposure controland/or adjustment of mA and/or kV according to patient size and/or use ofiterative reconstruction technique. FINDINGS: BONES: Stable postsurgical and degenerative changes. Posterior calcaneal osteotomy transfixed with 2 cannulated screws extending across theposterior talocalcaneal joint. Incomplete bony bridging with no interval boneformation. Fusion of the anterior talocalcaneal joint with a single screw. Incomplete bony bridging. Single surgical staple dorsal talonavicular joint withassociated mechanical failure of the stable, unchanged. Wedge spacer medialcuneiform. Moderate to severe diffuse degenerative changes of the midfoot andhindfoot with joint space narrowing with bony remodeling marginal osteophyteformation and subchondral cystic changes. Total knee arthroplasty. SOFT TISSUES: Negative. No visible soft tissue swelling. EFFUSION: None visible. OTHER: Negative. CT/CT ankle LT wo con IMPRESSION: Stable postsurgical and degenerative changes with no new significantinterval bone formation or evidence of bony bridging Electronically authenticated by: YOU NEWELL Date: 11/18/2023 13:43 Dictated By: You Newell M.D. Signed By:11/18/23 1345 DD/ 1343 TD/TT: Rear Load Truck Driver: Generic External Data Provider [facility] Final Result * ALL MAGNESIUM (11/18/2023 1:30 PM EDT) MAGNESIUM 2.1 1.8 - 2.4 mg/dL [facility] 11/18/2023 1:30 PM EDT 11/18/2023 2:01 PM EDT Narrative [facility] - 11/18/2023 2:30 PM EDT Generic External Data Provider [facility] F inal Result [facility] TB * (ABNORMAL) ALL THYROID STIM HORMONE (11/18/2023 1:30 PM EDT) THYROID STIMULATING HORMONE 4.228(H) 0.358 - 3.740 uIU/mL TBH 11/18/2023 1:30 PM EDT 11/18/2023 1:32 PM EDT Narrative [facility] - 11/18/2023 2:27 PM EDT Gil Higgins MD [facility] Final Result [facility] TB * ALL T3 FREE (11/18/2023 1:30 PM EDT) FREE T3 2.69 2.18 - 3.98 pg/mL TBH 11/18/2023 1:30 PM EDT 11/18/2023 1:32 PM EDT Narrative [facility] - 11/18/2023 2:27 PM EDT Gil MOOREISYFIDEL Final Result Performing Organization Address [facility] Co de Phone Number [facility] * ALL LIPID PROFILE (FASTING) (11/18/2023 1:30 PM EDT) TRIGLYCERIDES 117 <=150 mg/dL TBH CHOLESTEROL 188 <=200 mg/dL TB HDL CHOLESTEROL 46 40 - 60 mg/dL TB Comment: > or =60 mg/dl - LOW CARDIOVASCULAR RISK <40 mg/dl - HIGH CARDIOVASCULAR RISK LDL CHOLESTEROL CALCULATED 118.6 mg/dL TB Comment: <100 mg/dl OPTIMAL 100-129 mg/dl NEAR OR ABOVE OPTIMAL 130-159 mg/dl BORDERLINE HIGH 160-189 mg/dl HIGH >190 mg/dl VERY HIGH VLDL CHOLESTEROL 23.4 mg/dL TB CHOL HDL RATIO 4.1 TB Comment: 3.3 - 4.4 LOW RISK 4.4 - 7.1 AVERAGE RISK 7.1 - 11.0 MODERATE RISK >11.0 HIGH RISK 11/18/2023 1:30 PM EDT 11/18/2023 1:32 PM EDT Narrative [facility] - 11/18/2023 2:27 PM EDT Gil MOOREISYFIDEL Final Result Performing Organization Address [facility] de Phone Number [facility] * (ABNORMAL) ALL BASIC METABOLIC PANEL (11/18/2023 1:30 PM EDT) SODIUM 136 136 - 145 mmol/L TBH POTASSIUM 4.1 3.5 - 5.1 mmol/L TBH CHLORIDE 100 98 - 107 mmol/L TBH CARBON DIOXIDE 28.3 21.0 - 32.0 mmol/L TBH ANION GAP 11.8 TBH GLUCOSE 95 74 - 106 mg/dL TB BLOOD UREA NITROGEN 20.0(H) 7.0 - 18.0 mg/dL TBH CREATININE 1.13 0.70 - 1.30 mg/dL TBH TBH EGFR-AF [place] >60 >=60 TBH TBH EGFR-NON AF [place] >60 >=60 TBH BUN CREATININE RATIO 17.7 TBH CALCIUM 9.2 8.5 - 10.1 mg/dL TBH 11/18/2023 1:30 PM EDT 11/18/2023 1:32 PM EDT Narrative [facility] - 11/18/2023 2:27 PM EDT Gil ARGUETA Final Result Performing Organization Address City/[facility] Co de Phone Number [facility] TB * HMHP LIVER PANEL (11/18/2023 1:30 PM EDT) BILIRUBIN TOTAL 0.7 0.2 - 1.0 mg/dL TBH BILIRUBIN DIRECT 0.1 0.0 - 0.2 mg/dL TBH ASPARTATE AMINO TRANSFERASE 18 15 - 37 U/L TBH ALANINE AMINOTRANSFERASE 22 16 - 63 U/L TBH ALKALINE PHOSPHATASE 56 46 - 116 U/L TBH TOTAL PROTEIN 7.6 6.4 - 8.2 g/dL TBH ALBUMIN LEVEL 3.9 3.4 - 5.0 g/dL TBH GLOBULIN 3.7 g/dL TBH ALBUMIN GLOBULIN RATIO 1.1 TBH 11/18/2023 1:30 PM EDT 11/18/2023 1:32 PM EDT Narrative [facility] - 11/18/2023 2:27 PM EDT us Gil ARGUETA Final Result Performing Organization Address [facility] Co de Phone Number [facility] * ALL THYROXINE (T4) FREE (11/18/2023 1:30 PM EDT) FREE T4 1.29 0.76 - 1.46 ng/dL TB 11/18/2023 1:30 PM EDT 11/18/2023 1:32 PM EDT Narrative [facility] - 11/18/2023 2:26 PM EDT Gil MOOREISYFIDEL Final Result Performing Organization Address City/State/[facility] Co de Phone Number [facility] TB * (ABNORMAL) ALL CBC WITH AUTO DIFF (11/18/2023 1:30 PM EDT) [facility] TB WBC 6.5 4.0 - 11.0 10 3/uL TBH TBH RBC 4.32(L) 4.70 - 6.10 10 6/uL TBH TBH HGB 13.0(L) 14.0 - 18.0 g/dL TBH TBH HCT 38.0(L) 42.0 - 54.0 % TBH TBH MCV 88.0 80.0 - 94.0 fL TBH TBH MCH 30.1 25.9 - 34.0 pg TBH TBH MCHC 34.2 29.9 - 35.2 g/dL TBH TBH RDW 14.0 11.0 - 15.0 % TBH TBH PLT 221 150 - 450 10 3/uL TBH TBH MPV 9.9 9.5 - 13.5 fL TBH NEUTROPHILS PERCENT AUTO 65.9 43.0 - 75.0 % TBH LYMPHOCYTES PERCENT AUTO 23.7 20.5 - 60.0 % TBH MONOCYTES PERCENT AUTO 6.7 1.7 - 12.0 % TBH TBH EO % 2.6 0.9 - 7.0 % TBH BASOPHILS PERCENT AUTO 0.9 0.2 - 2.0 % TBH IMMATURE GRANULOCYTES PCT AUTO 0.2 0.0 - 0.5 % TBH NEUTROPHILS ABSOLUTE AUTO 4.3 1.4 - 6.5 10 3/uL TBH LYMPHOCYTES ABSOLUTE AUTO 1.6 1.2 - 3.8 10 3/uL TBH MONOCYTES ABSOLUTE AUTO 0.4 0.3 - 0.8 10 3/uL TBH TBH EO # 0.2 0.0 - 0.7 10 3/uL TBH BASOPHILS ABSOLUTE AUTO 0.1 0.0 - 0.1 10 3/uL TBH IMMATURE GRANULOCYTES ABS AUTO 0.01 0.00 - 0.03 10 3/uL TBH 11/18/2023 1:30 PM EDT 11/18/2023 1:32 PM EDT Narrative [facility] - 11/18/2023 1:55 PM EDT Gil Higgins MD CLINCON[facility]ITA Final Result [facility] documented in this encounter Visit Diagnoses Not on filedocumented in this encounter Care Teams Education Associate Relationship Specialty Start Date End Date Gil Higgins MD PCP - General Family Medicine 04/22/23 Gil Higgins MD [address] [place] [address] PCP - ACO Reach 04/15/24 documented as of this encounter
--- OUTSIDE RECORDS SUMMARY | 2024-11-28 12:43 | XMS_ITS | Encounter Summary ---
Author Organization [facility] Address [address] [place] [address] Care Team Providers Care Customer Sales Consultant Name Role Phone Gil Higgins MD Primary Care Provider [phone] Gil Higgins MD Unavailable Encounter Details Date Type Department Care Team (Late st Contact Info) Description 03/17/2024 Abstract [facility] [place] [facility] [address] [place] [address] Unallocated, Noms MD [address] [place] [address] Social History Tobacco Use Types Packs/Day Years [...] EST Procedure Visit [facility] [address] [place] [phone] Adilia Dugan, DPM [address] [place] [address] 05/24/2025 1:00 PM EDT Office Visit [facility] [address] [place] [address] Jr. Charli Ch, DO [address] [place], [place] [id number] 07/26/2025 1:00 PM EDT [facility] [address] [place] [address] Juana Garcia MD [address] [place] [address] documented as of this encounter Visit Diagnoses Not on filedocumented in this encounter Additional Health Concerns Assessment Noted Time PHQ-9 Depression Total Score: 0 01/18/20 24 10:00 AM EST documented as of this encounter Care Teams Customer Sales Consultant Relationship Specialty Start Date End Date Gil Higgins MD PCP - General Family Medicine 04/22/23 Gil Higgins MD [address] [place] [address] PCP - ACO Reach 04/15/24 documented as of this encounter
--- OUTSIDE RECORDS SUMMARY | 2024-11-28 12:43 | XMS_ITS | Encounter Summary ---
Author Organization [employer] Address [facility]-[id number] [address] [place] [address] Care Team Providers Care Jewelry Estimator Name Role Phone Gil Higgins MD Primary Care Provider [phone] Encounter Details Date Type Department Care Team (Late st Contact Info) Description 02/05/2021 Telephone [facility] [address] [facility] [address] [place] [phone] Yolanda Eng, ASHLEY Social History Tobacco Use Types Packs/Day Years Used Date Smoking Tobacco: Former Cigarettes Smokeless Tobacco: Never Alcohol Use Standard Drinks/Week Comments Yes 0 (1 standard drink = 0.6 oz pur e alcohol) drinks occasionally PHQ-2 Answer Date Recorded Total Score 0 12/15/2019 Childcare Answer Date Recorded Childcare Unknown 08/18/2018 Employment Answer Date Recorded Employment Unknown 08/18/2018 Purpose - Life Answer Date Recorded Purpose [...] have Coronavirus / COVID-19? No / Unsure 02/04/2021 2:53 PM EST documented as of this encounter Miscellaneous Notes * Telephone Encounter - Yolanda Eng RN - 02/05/2021 8:31 AM EST Received p/c from pt. Pt was seen in [place] yesterday. Has decided to stay w/ inspra. 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 Even though the cost of Inspra is more pt would stay on it. FYI message sent to Desiree Hart. * Telephone Encounter - PHILIPP Perez - 02/05/2021 8:31 AM EST Noted. documented in this encounter Plan of Treatment Upcoming Encounters Date Type Department Care Team (Latest Contact Info) Description 01/02/2025 10:00 AM EDT Office Visit [facility] [address] [facility] [address] [place] [address] Juana Winn, JEAN MARIE-OIL RIG ROUGHNECK [address] [place] [address] 01/06/2025 8:00 AM EDT Follow Up Anticoagulation [facility] Medication Management [address] [place] [address] Justin Rangel MD [address] [place] [address], [address] [place] [address] documented as of this encounter Visit Diagnoses Not on filedocumented in this encounter Additional Health Concerns Assessment Noted Time PHQ-9 Depression Total Score: 0 12/15/19 20 11:34 AM EDT documented as of this encounter Care Teams Jewelry Estimator Relationship Specialty Start Date End Date Gil Higgins MD PCP - General Family Medicine 06/10/24 documented as of this encounter
--- OUTSIDE RECORDS SUMMARY | 2024-11-28 12:43 | XMS_ITS | Encounter Summary ---
Author Organization [employer] Address [facility][id number] [address] [place] [address] Care Team Providers Care Medical Data Entry Clerk Name Role Phone Gil Higgins MD Primary Care Provider [phone] Reason for Visit * Reason Onset Date Comments Med Refill 11/15/2024 Encounter Details Date Type Department Care Team (Late st Contact Info) Description 11/15/2024 Refill [facility] [address] [facility] [address] [place] [address] Mag Olmstead RN Med Refill Social History Tobacco Use Types Packs/Day Years Used Date Smoking Tobacco: Former Cigarettes Smokeless Tobacco: Never Alcohol Use Standard Drinks/Week Comments Not Currently 0 (1 standard drink = 0.6 oz pur e alcohol) drinks occasionally [facility] Utilities Answer Date Recorded In the past 12 months has e electric, gas, oil, or water company threatened to [...] got money to buy more. Never True 06/20/2024 Within the past 12 months th e food we bought just didn't last and we didn't have money to get more. Never True 06/20/2024 Purpose - Life Answer Date Recorded Purpose [...] Description 01/02/2025 10:00 AM EDT Office Visit [facility] [address] [place] [address] Juana Winn, BLOCK GREASER-ANIMAL ANATOMIST [address] [place] [address] 01/06/2025 8:00 AM EDT Follow Up Anticoagulation [facility] - Pharmacy Medication Management [address] [place] [address] Justin Rangel MD [address] [place] [address], [address] [place] [address] documented as of this encounter Goals Goal Patient Goal Type Associated Problems Recent Progress Patient-Stated? Author <enter goal here> General Yes Kusum Forman, RN Note: Evaluation of progress towards goal: patient progressing toward safe discharge. documented as of this encounter Visit Diagnoses Not on filedocumented in this encounter Additional Health Concerns Assessment Noted Time PHQ-9 Depression Total Score: 0 12/15/19 20 11:34 AM EDT documented as of this encounter Care Teams Medical Data Entry Clerk Relationship Specialty Start Date End Date Gil Higgins MD PCP - General Family Medicine 06/10/24 documented as of this encounter
--- OUTSIDE RECORDS SUMMARY | 2024-11-28 12:43 | XMS_ITS | Encounter Summary ---
Author Organization [facility] tem Address [id number] [address] [place] [address] Care Team Providers Care Calender Worker Helper Name Role Phone Gil Higgins MD Primary Care Provider [phone] Encounter Details Date Type Department Care Team (Late st Contact Info) Description 08/21/2022 Orders Only [facility] [address] [place] [address] Judy Marte RN Social History Tobacco Use Types Packs/Day [...] 10:00 AM EDT [facility] [address] [facility] 1 [place] [address] Juana Winn, CONSUMER LOAN PROCESSOR-PLATE STACKER HAND [address] [place] [address] 01/06/2025 8:00 AM EDT Follow Up Anticoagulation [facility] - Pharm[facility] Medication Management [address] [place] [address] Justin Rangel MD [address] [place] [address], [address] [place] [address] documented as of this encounter Visit Diagnoses Not on filedocumented in this encounter Additional Health Concerns Assessment Noted Time PHQ-9 Depression Total Score: 0 12/15/19 20 11:34 AM EDT documented as of this encounter Care Teams Calender Worker Helper Relationship Specialty Start Date End Date Gil Higgins MD PCP - General Family Medicine 06/10/24 documented as of this encounter
--- OUTSIDE RECORDS SUMMARY | 2024-11-28 12:43 | XMS_ITS | Encounter Summary ---
Author Organization [employer] Address [id number] [address] [place] [place] [address] Care Team Providers Care Brake Holder Name Role Phone Gil Higgins MD Primary Care Provider [phone] Encounter Details Date Type Department Care Team (Late st Contact Info) Description 02/09/2024 Telephone [facility] [address] [place] [address] Valarie Avina APRN-CNP [address] [place] [address] Social History Tobacco Use Types Packs/Day Years [...] got money to buy more. Never True 01/29/2024 Within the past 12 months th e food we bought just didn't last and we didn't have money to get more. Never True 01/29/2024 Purpose - Life Answer Date Recorded Purpose and direction in life Unknown Sex and Gender Information Value Date Recorded Sex Assigned at Not on file Legal Sex Male 11:28 AM EDT Gender Identity Not on file Sexual Orientation Not on file documented as of this encounter Miscellaneous Notes * Telephone Encounter - PHILIPP Gale - 02/09/2024 2:18 PM EST Cardiac catheterization completed today. No need to follow-up with me. He has a site check scheduled in [place] and then will undergo open heart surgery. * Telephone Encounter - Monique [place] - 02/09/2024 2:18 PM EST 02/08 Noted, complete documented in this encounter Plan of Treatment Upcoming Encounters Date Type Department Care Team (Latest Contact Info) Description 01/02/2025 10:00 AM EDT Office Visit [facility] Card[facility] [address] [place] [address] Juana Winn, COORDINATOR OF ONLINE PROGRAMS-DIRECTOR OF SUPPLY CHAIN [address] [place] [address] 01/06/2025 8:00 AM EDT Follow Up Anticoagulation [facility] Medication Management [address] [place] [address] Justin Rangel MD [address] [place] [address], [address] [place] [address] documented as of this encounter Visit Diagnoses Not on filedocumented in this encounter Additional Health Concerns Assessment Noted Time PHQ-9 Depression Total Score: 0 12/15/19 20 11:34 AM EDT documented as of this encounter Care Teams Brake Holder Relationship Specialty Start Date End Date Gil Higgins MD PCP - General Family Medicine 06/10/24 documented as of this encounter
--- OUTSIDE RECORDS SUMMARY | 2024-11-28 12:43 | XMS_ITS | Encounter Summary ---
Author Organization [facility] Address [address] [place] [address] Care Team Providers Care Grape Pruner Name Role Phone Gil Higgins MD Primary Care Provider [phone] Gil Higgins MD Unavailable Encounter Details Date [...] Procedure Visit [facility] [address] [place] [id number] Adilia Dugan, DPM [address] [place], [place] [id number] 05/24/2025 1:00 PM EDT Office Visit [facility] [address] [facility] [address] [place] [phone] Jr. Charli Ch, DO [address] [facility] [address] [place] [address] 07/26/2025 1:00 PM EDT Office Visit [facility] [address] [place] [address] Juana Garcia MD [address] [place] [address] documented as of this encounter Procedures Procedure Name Priority Date/Time Associated Diagnosis Comments XR ANKLE LT MIN 3V 10/19/2023 7: 08 AM EDT documented in this encounter Results * XR ANKLE LT MIN 3V (10/19/2023 7:08 AM EDT) Anatomical Region Laterality Modality Other 10/19/2023 7:08 AM EDT Narrative 10/19/2023 7:11 [place] [address] XRay Report Signed Patient: REMI ZARCO MR#: [id number] : 1945 Acct:[id number] Age/Sex: 78 / M ADM Date: 10/14/23 Loc: EC Attending Dr: Lexi Snow D.P.M. Ordering Physician: Lexi Snow D.P.M. Date of Service: 10/14/23 Procedure(s): XR ankle LT min 3V Accession Number(s): [id number] cc: Lexi Snow D.P.M.; Gil Higgins M.D. The [address] [id number] Patient Name: REMI ZARCO MRN: [id number] date: 1945 Sex: M Assigned Patient Location: EC Current Patient Location: Accession/Order Number: [id number] Exam Date: 10/14/2023 13:10 Report Date: 10/19/2023 07:08 At the request of: LEXI SNOW Procedure: XR ankle LT min 3V PROCEDURE: XR foot LT [...] Moderate to severe diffuse degenerative changes with fnly-wr-bacx articulation of the tibiotalar joint. Lucency in the distal tibia from bone graft harvesting. SOFT TISSUES:Negative. No visible soft tissue swelling. EFFUSION:None visible. OTHER: Negative. XR/XR ankle LT min 3V IMPRESSION: Stable exam with some partial bony bridging along the posterior inferior calcaneal osteotomy Electronically authenticated by: YOU NEWELL Date: 10/19/2023 07:08 Dictated By: You Newell M.D. Signed By: 10/19/23710 DD/ TD/TT: Babbitt Spinner: Procedure Note Radiology, Radiologist, MD - 10/19/2023 [place] [address] XRay Report Signed Patient: REMI ZARCO AMR#: [id number] : 1945cct:[id number] Age/Sex: 78 / MADM Date: 10/14/23 Loc: [facility] Attending Dr: Lexi Snow D.P.M. Ordering Physician: Lexi Snow D.P.M. Date of Service: 10/14/23 Procedure(s): XR ankle LT min 3V Accession Number(s): [id number] cc: Lexi Snow D.P.M.; Gil Higgins M.D. The [place] [address] Patient Name: REMI ZARCO MRN: [id number] date: 1945 Sex: M Assigned Patient Location: EC Current Patient Location: Accession/Order Number: [id number] Exam Date: 10/14/2023 13:10 Report Date: 10/19/2023 07:08 At the request of: LEXI SNOW Procedure: XR ankle LT min 3V PROCEDURE: XR foot LT [...] joint.Moderate to severe diffuse degenerative changes with aqep-jz-camo articulation of the tibiotalar joint. Lucency in the distal tibia from bone graft harvesting. SOFT TISSUES:Negative. No visible soft tissue swelling. EFFUSION:None visible. OTHER: Negative. XR/XR ankle LT min 3V IMPRESSION: Stable exam with some partial bony bridging along the posterior inferior calcaneal osteotomy Electronically authenticated by: YOU NEWELL Date: 10/19/2023 07:08 Dictated By: You Newell M.D. Signed By:10/19/23710 DD/ TD/TT: Babbitt Spinner: us Generic External Data Provider [facility] Final Result documented in this encounter Visit Diagnoses Not on filedocumented in this encounter Care Teams Grape Pruner Relationship Specialty Start Date End Date Gil Higgins MD PCP - General Family Medicine 04/22/23 Gil Higgins MD [address] [facility] [address] PCP - ACO Reach 04/15/24 documented as of this encounter
--- OUTSIDE RECORDS SUMMARY | 2024-11-28 12:43 | XMS_ITS | Clinical Summary ---
Author Organization [employer] Address [facility] [place]-[id number] [address] [place] [address] Care Team Providers Care Electrical Integrator Name Role Phone Gil Higgins MD Primary Care Provider [phone] Allergies Active Allergy Reactions Criticality Noted Date Comments Morphine 05/09/2016 sensitive skin Rosuvastatin Other (See Comments) 02/24/2023 Other Reaction(s): Muscle Pain Medications levothyroxine (SYNTHROID, LEVOTHROID) 100 MCG tablet Take by mouth daily. Active ascorbic acid, vitamin C, 250 mg tablet,chewable Chew 1,000 mg and swallow in the morning. Active enoxaparin (LOVENOX) 120 mg/0.8 mL syringeIndications :Persistent atrial fibrillation ([facility]-HCC),residential (current) use of anticoagulants Inject 0.74 mL (111 mg total) under the skin Every 12 (twelve) hours. as directed by Romel HANDY (Medication Therapy Management) 8 mL 02/09/20 Active Additional Information Patient not taking.Reported on 06/20/2024 acetaminophen (TYLENOL) 325 mg tablet Take 2 tablets (650 mg total) by mouth every 4 (four) hours as needed for pain. 02/19/20 Active alum-mag hydroxide-simeth (MAALOX) 200-200-20 mg/5 mL suspension Take 15 mL by mouth every 6 (six) hours as needed for indigestion. 02/19/20 Active Additional Information Patient not taking.Reported on 06/20/2024 aspirin 81 mg Take 1 tablet (81 mg total) by mouth in the morning. 02/19/20 Active bisacodyL (DULCOLAX) 10 mg suppositoryIndicat ions:constipation Insert 1 suppository (10 mg total) into the rectum daily as needed for constipation (if magnesium hydroxide [MILK OF MAGNESIA] ineffective after 8 hours.) Indications: constipation. 02/19/20 Active Additional Information Patient not taking.Reported on 06/20/2024 magnesium hydroxide (MILK OF MAGNESIA) 400 mg/5 mL suspensionIndicati ons:constipation Take 15 mL by mouth daily as needed (constipation) Indications: constipation. 02/19/20 Active Additional Information Patient not taking.Reported on 06/20/2024 melatonin (CIRCADIN) 5 mg tablet Take 1 tablet (5 mg total) by mouth nightly as needed (Insomnia). 02/19/20 Active Additional Information Patient not taking.Reported on 06/20/2024 pantoprazole (PROTONIX) 40 mg EC tablet Take 1 tablet (40 mg total) by mouth every morning before breakfast. 02/20/20 Active Additional Information Patient not taking.Reported on 06/20/2024 tamsulosin (FLOMAX) 0.4 mg capsule Take 1 capsule (0.4 mg total) by mouth nightly. 02/19/20 Active Additional Information Patient not taking.Reported on 06/20/2024 atorvastatin (LIPITOR) 40 mg tabletIndications: Coronary artery disease involving [place] coronary artery of [place] heart without angina pectoris Take 1 tablet (40 mg total) by mouth nightly. 90 tablet 3 03/22/19 25 Active furosemide (LASIX) 20 mg tabletIndications: Chronic heart failure with preserved ejection fraction (CMS-HCC) Take 1 tablet (20 mg total) by mouth daily. 90 tablet 3 03/22/19 25 Active warfarin (COUMADIN) 4 mg tablet Take 0.5-1 tablets (2-4 mg total) by mouth in the evening. As directed by [facility]. 90 tablet 1 06/14/19 25 Active warfarin (COUMADIN) 4 mg tabletIndications: Persistent atrial fibrillation (CMS-HCC) Take 0.5-1 tablets (2-4 mg total) by mouth in the evening. As directed by [facility]. 30 tablet 1 06/14/19 25 Active Additional Information Patient not taking.Reported on 06/20/2024 cholecalciferol, vitamin D3, 2,000 units tablet Take 1 tablet (2,000 Units total) by mouth in the morning. Active salmon oil/omega-3 fatty acids (SALMON OIL-1000 ORAL) Take 2 g by mouth in the morning. Active metoprolol succinate XL (TOPROL XL) 25 mg 24 hr tabletIndications: Ischemic cardiomyopathy Take 0.5 tablets (12.5 mg total) by mouth daily with dinner. 90 tablet 3 06/21/19 25 Active eplerenone (INSPRA) 25 mg tablet Take 1 tablet (25 mg total) by mouth in the morning. 90 tablet 1 11/16/19 25 Active eplerenone (INSPRA) 25 mg tablet Take 1 tablet (25 mg total) by mouth in the morning. 08/19/19 25 025 Discontin ued(Reord er) Active Problems Problem Noted Date Diagnosed Date Anticoagulated on Coumadin 02/19/2024 Coronary artery disease 02/15/2024 Left ventricular dysfunction 01/29/2024 Pulmonary hypertension 01/29/2024 Anginal equivalent 01/29/2024 Left ear pain 12/15/2019 residential (current) use of anticoagulants 2018 Essential hypertension 01/12/2017 Persistent atrial fibrillation 01/12/2017 Shortness of breath 04/09/2016 Resolved Problems Problem Noted Date Diagnosed Date Resolved Date Chest pain 04/09/2016 01/14/2018 Encounter for preprocedural cardiovascular examination 05/12/2013 01/29/2024 Encounters Date Type Department Care Team Description 11/15/2024 Refill [facility] [address] [place] [address] Mag Olmstead, RN Med Refill 11/11/2024 8:00 AM EDT Follow Up Anticoagulation [facility] Medication Management [address] [place] [address] Justin Rangel MD Persistent atrial fibrillation ([facility]-HCC) (Primary Dx); 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; Anticoagulated on Coumadin 11/11/2024 Travel 09/16/2024 8:00 AM EDT Follow Up Anticoagulation [facility] - [facility] Medication Management [address] [place] [address] Justin Rangel MD Persistent atrial fibrillation ([facility]CC) (Primary Dx); residential (current) use of anticoagulants; Anticoagulated on Coumadin 09/16/2024 Travel from Last 3 Months Immunizations Immunization Administration Dates Next Due COVID-19, mRNA, LNP-S, PF, 3 0mcg/0.3mL Dose 05/21/2020,04/30/2020 Influenza High Dose Preserva tive Free IM 12/22/2023 Influenza Vaccine, Quadrival ent, Adjuvanted 12/31/2022 Influenza, Injectable, quadr ivalent (PF) 12/08/2019,12/07/2018,12/16/2017,01/12 Pneumococcal Polysaccharide 01/07/2022 RSV, recombinant, protein chatterjee bunit RSVpreF, adjuvant reconstituted, 0.5 mL, PF 01/15/2023 Zoster Vaccine Recombinant 09/10/2021,07/04/2021 Family History Medical History Relation Name Comments Heart attack Father Lung cancer Father Liver cancer Maternal Grandmother Heart failure Mother Diabetes Paternal Grandmother Relation Name Status Comments Father Maternal Grandmother Mother Paternal Grandmother Social History Tobacco Use Types Packs/Day Years Used Date Smoking Tobacco: Former Cigarettes Smokeless Tobacco: Never Tobacco Cessation:Counseling Given: Not Answered Alcohol Use Standard Drinks/Week Comments Not Currently 0 (1 standard drink = 0.6 oz pur e alcohol) drinks occasionally [employer] Loc[employer] Answer Date Recorded In the past 12 months has e [employer], gas, oil, or water [employer] threatened to shut off services in your [...] Sign Reading Time Taken Comments Blood Pressure 134/82 06/20/2024 9:56 AM EDT Pulse 45 06/20/2024 9:56 AM EDT Temperature 36.1 C (97 F) 02/29/2024 1:28 PM EST Respiratory Rate 18 02/29/2024 1:28 PM EST Oxygen Saturation 97% 06/20/2024 9:56 AM EDT Inhaled Oxygen Concentration - - Weight 104.5 kg (230 lb 6.4 oz) 06/20/2024 9:56 AM EDT Height 182.9 cm (6') 06/20/2024 9:56 AM EDT Body Mass Index 31.25 06/20/2024 9:56 AM EDT Plan of Treatment Upcoming Encounters Date Type Department Care Team (Latest Contact Info) Description 01/02/2025 10:00 AM EDT Office Visit [facility] [address] [place] [address] Juana Winn, WIND ENERGY PROJECT MANAGER-LAND DEGRADATION ANALYST [address] [place] [address] 01/06/2025 8:00 AM EDT Follow Up Anticoagulation [facility] - [facility] Medication Management [address] [place] [address] Justin Rangel MD [address] [place] [address] Health Maintenance Due Date Last Done Comments Depression Screening 1957 DTaP,Tdap and Td Vaccines (1 - Tdap) 1964 Abdominal Aortic Aneurysm (A AA) Screen 2010 Fall Risk Screening 2010 COVID-19 Vaccine (8 2023-2 5 season) 2024 12/22/2023, 12/31/2022, 11/29/2021, Additional history exists Influenza Vaccine 11/07/2024 12/22/2023, , 12/08/2019, Additional history exists Tobacco Screening 06/20/2025 06/20/2024 Colonoscopy 04/25/2026 04/25/2021, 04/25/2021 Zoster (Shingles) Vaccine Completed 09/10/2021, Goals Goal Patient Goal Type Associated Problems Recent Progress Patient-Stated? Author <enter goal here> General Yes Kusum Forman RN Note: Evaluation of progress towards goal: patient progressing toward safe discharge. 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 INR 3.0(A) 0.8 - 1.2 MANUALLY TRANSCRIBED RESULTS 11/11/2024 8:08 AM EDT us [facility] Medication Management POINT O F CARE TEST ORDERABLES Final Result MANUALLY TRANSCRIBED RESULTS * Colonoscopy Report (04/25/2021 6:54 AM EST) Narrative SYSTEMGENERATED, DOCUMENTATION - 04/25/2021 6:54 AM EST This order has been auto-finalized for image and report archival in PACs. *For full report details, please reach out to your physician. Effective 07/24/20 this image will be visible to you in MyChart.* Tr Lynch DO IMG OR IMG ORDERABLES Final Result from Last 3 Months or Most Recently Relevant to Health Maintenance Insurance MEDICARE [facility] [place] [place] [facility] Advance Directives * Full Code (Latest Code Status on File) Date Activated Date Inactivated Comments 02/15/2024 11:59 AM 02/19/2024 7:40 PM Care Teams Electrical Integrator Relationship Specialty Start Date End Date Gil Higgins MD PCP - General Family Medicine 06/10/24
--- OUTSIDE RECORDS SUMMARY | 2024-11-28 12:43 | XMS_ITS | Encounter Summary ---
Author Organization [employer] Sys [employer] Address [id number] [address] [place] [address] Care Team Providers Care Vacuum Spindle Sander Name Role Phone Gil Higgins MD Primary Care Provider [phone] Encounter Details Date Type Department Care Team (Late st Contact Info) Description 11/18/2023 Orders Only [facility] [address] [place] [address] Haylie Plasencia CMA Essential hypertension Social History Tobacco Use Types Packs/Day Years [...] Cardiology [address] [place] [address] Juana Winn APRN-DETECTIVE [facility] [address] [place] [id number] 01/06/2025 8:00 AM EDT Follow Up Anticoagulation [facility] Medication Management [address] [place] [address] Justin Rangel MD [address] [facility], [address] [place] [address] documented as of this encounter Procedures Procedure Name Priority Date/Time Associated Diagnosis Comments MAGNESIUM Routine 11/18/2023 Essential hypertension LIPID PROFILE Routine 11/18/2023 BASIC METABOLIC PANEL Routine 11/18/2023 Essential hypertension documented in this encounter Results * Lipid profile (11/18/2023) External Cholesterol 188 MANUALLY TRANSCRIBED RESULTS External Cholesterol:Hdl 4.1 MANUALLY TRANSCRIBED RESULTS External Hdl Cholesterol 46 MANUALLY TRANSCRIBED RESULTS External Ldl (Calc) 118 MANUALLY TRANSCRIBED RESULTS Vldl,Cholesterol 23.4 MAN UALLY TRANSCRIBED RESULTS us Scanning Provider External LAB BLOOD ORDERABLES Edited Result - Final MANUALLY TRANSCRIBED RESULTS * Basic Metabolic Panel (11/18/2023) 11/18/2023 us Stanley Nazario ATTENDANT SALES-DETECTIVE [facility] LAB BLOOD ORDERABLES F inal Result SUNQUEST * Magnesium (11/18/2023) 11/18/2023 us Stanley Nazario ATTENDANT SALES-DETECTIVE [facility] LAB BLOOD ORDERABLES F inal Result Performing Organization Address City/[facility]/ZIP Co de Phone Number [facility]QUEST documented in this encounter Visit Diagnoses Diagnosis Essential hypertension Unspecified essential hypertension documented in this encounter Additional Health Concerns Assessment Noted Time PHQ-9 Depression Total Score: 0 12/15/19 20 11:34 AM EDT documented as of this encounter Care Teams Vacuum Spindle Sander Relationship Specialty Start Date End Date Gil Higgins MD PCP - General Family Medicine 06/10/24 documented as of this encounter
--- OUTSIDE RECORDS SUMMARY | 2024-11-28 12:54 | XMS_ITS | CCD ---
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 Name Role Phone Gil Gee Primary Care [...] GIL Fairchild Consulting Unavailable NADERER, DR GIL Fairchlid Primary Care Unavailable NADERER, DR GIL Fairchild [...] HIGHLANDER, LEXI Melendez Attending Unavailable HIGHLANDER, PETER Al Admitting Unavailable ZIEBER, DR GERARDO Melendez Consulting Unavailable NADERER, DR GIL Fairchild Primary Care Unavailable JOHANA, SUHA Attending Unavailable JOHANA, SUHA Admitting Unavailable JOHANA, SUHA Consulting Unavailable ZIEBER, DR GERARDO Melendez Consulting Unavailable NADERER, DR GIL Fairchild Primary Care Unavailable JOHANA, SUHA Attending Unavailable JOHANA, SUHA Admitting Unavailable JOHANA, SUHA Consulting Unavailable HIGHLANDER, LEXI Melendez Consulting Unavailable NADERER, DR GIL Fairchild Primary Care Unavailable HIGHLANDER, LEXI Melendez Attending Unavailable HIGHLANDER, LEXI Melendez Admitting Unavailable BARRETTWALDEMAR Consulting Unavailable WEST, DR YOU Whiteside Consulting Unavailable NADERER, DR GIL Fairchild Attending Unavailable NADERER, DR GIL Fairchild Admitting Unavailable NADERER, DR GIL Fairchild Primary Care Unavailable NADERER, DR GIL Fairchild Consulting Unavailable HIGHLANDERLEXI Consulting Unavailable GUSTRACEY Leigh Consulting Unavailable STEPHON ., CHRISTINA ROJO Consulting Unavailable MARY, LEXI Melendez Procedure Practitioner Unava ilable SIMON, MACY Consulting Unavailable WEST, DR YOU Whiteside Consulting Unavailable NADERER, DR GIL Fairchild Primary Care Unavailable SUHA VAUGHN Attending Unavailable SUHA VAUGHN Admitting Unavailable SUHA VAUGHN Consulting Unavailable Yolanda Somers Unavailable DO Willie Ross Attending Provider [phone] MD Gil Gee Primary Care Provider Willie Ross Admitting Unavailable Willie Ross Attending Unavailable Gerard, Gil Primary Care Unavailable Vandana, Willie Attending Unavailable Gil Gee Primary Care Unavailable Willie Ross Admitting Unavailable Gil Gee MD Primary Care Provider ABILIO GUPTA Referring Unavailable GERARD, GIL Primary Care Unavailable TACOS POWERS Referring Unavailable GERARD, GIL Primary Care Unavailable Gil Gee MD Primary Care Provider BRAD GREER Admitting Unavailable BRAD GREER Attending Unavailable GIL GEE Primary Care Unavailable [place], [facility] Unavailable MANUEL BARNES Admitting Unavailab MANUEL Rudolph Attending Unavailab le MANUEL BARNES Referring Unavailab le GIL GEE Primary Care Unavailable BRAD GREER Consulting Unavailable LEXI FLORES Consulting Unavailable GIL GEE Referring Unavailable GERARD, GIL Primary Care Unavailable EDGARD VILLA Attending Unavailable AMBERLY ZUÑIGA Referring Unavailable GERARD, GIL Primary Care Unavailable GERARD, GIL Referring Unavailable GERARD, GIL Primary Care Unavailable Gil Gee MD Primary Care Provider Gil Gee MD Primary Care Provider Gil Gee MD Unavailable Gil Gee MD Primary Care Provider Gil Gee MD Primary Care Provider JR. MARILIA, SHAJI Fernandez Attending Unavaila ble JR. MARILIA, SHAJI Fernandez Referring Unavaila ble NADERER, GIL Attending Unavailable PETITTI, SUMAN A Attending Unavailable RANGEL, ADILIA Fair Attending Unavailable NADERER, GIL Attending Unavailable NADERER, GIL Attending Unavailable NADERER, GIL Attending Unavailable MULTANI, ADILIA Fair Attending Unavailable GREER, BRAD A Referring Unavailable NADERER, GIL Primary Care Unavailable GRACE GEE Attending Unavailable NADERERGIL Referring Unavailable NADERER, GIL Primary Care Unavailable GRACE GEE Referring Unavailable NADERER, GIL Primary Care Unavailable MEDICATION MANAGEMENT, [facility] Referr ing Unavailable NADERER, GIL Primary Care Unavailable MEDICATION MANAGEMENT, [facility] Referr ing Unavailable NADERER, GIL Primary Care Unavailable MEDICATION MANAGEMENT, [facility] Referr ing Unavailable NADERER, GIL Primary Care Unavailable MEDICATION MANAGEMENT, [facility] Referr ing Unavailable NADERER, GIL Primary Care Unavailable MEDICATION MANAGEMENT, [facility] Referr ing Unavailable NADERER, GIL Primary Care Unavailable VINCENT CHING Attending Unavailable VINCENT CHING Referring Unavailable NADERER, GIL Primary Care Unavailable VINCENT CHING Attending Unavailable NADEREGIL Melendez Referring Unavailable NADERER, GIL Primary Care Unavailable OLAF PÉREZ Referring Unavailable BELINDAERENora, GIL Primary Care Unavailable VINCENT CHING Referring Unavailable NADERER, GIL Primary Care Unavailable MEDICATION MANAGEMENT, [facility] Referr ing Unavailable NADERER, GIL Primary Care Unavailable NADERER, IGL Referring Unavailable NADERER, GIL Primary Care Unavailable NANCY OVALLE Attending Unavailable BELINDAEREGIL Melendez Referring Unavailable NADERER, GIL Primary Care Unavailable MEDICATION MANAGEMENT, [facility] Referr ing Unavailable NADERER, GIL Primary Care Unavailable MANUEL BARNES Referring Unavailab le NADEREGIL Melendez Primary Care Unavailable SERVICE, JOBST Referring Unavailable BELINDAEREGIL Melendez Primary Care Unavailable SERVICE, JOBST Referring Unavailable BELINDAERER, GIL Primary Care Unavailable SERVICE, JOBST Referring Unavailable NADERER, GIL Primary Care Unavailable Allergies Allergy Classification Reported Allergen(s) Allergy Type Date of Onset Reaction(s) Facility (20 sources) Morphine; Translations: [MORPHINE] Drug Allergy 7 Other: See Comments, Unknown [facility] (2 sources) Morphine Drug Allergy [facility] Rep[facility] (20 sources) rosuvastatin; Translations: [rosuvastatin] Drug Allergy 3 Other, Other (See Comments) [facility] (1 source) Morphine Drug Allergy 3 [facility] Repository Medications Current Medications Medication Drug Class(es) Dates Sig (Normalized) Sig (Original) acetaminophen 325 mg oral tablet (20 sources) Start: 02-19-2024 take 2 tablets by mouth every four hours as needed for pain acetaminophen (TYLENOL) 325 mg tablet Take 2 tablets (650 mg total) by mouth every 4 (four) hours as needed for pain. 02/19/2024 Active Acetaminophen 50 0 MG capsule Take by mouth Active aluminum hydroxide 40 mg/ml / magnesium hydroxide 40 mg/ml / simethicone 4 mg/ml oral suspension (20 sources) Start: 02-19-2024 take 15 mL by mouth every six hours as needed alum-mag hydroxide-simeth (MAALOX) 200-200-20 mg/5 mL suspension Take 15 mL by mouth every 6 (six) hours as needed for indigestion. 02/19/2024 Active ascorbic acid 1000 mg extended release oral tablet (20 sources) Vitamin C Start: 02-10-2023 take 1 tablet by mouth once daily in the morning Ascorbic Acid (Vitamin C) (Vitamin C) 1,000 mg Tablet Extended Release Active 1000 MG PO Every morning February 10, 2023 12:00am ascorbic acid, v itamin C, 250 mg tablet,chewable Chew 1,000 mg and swallow in the morning. Active ascorbic acid (V itamin C) 250 MG chewable tablet Chew Active aspirin 81 mg delayed release oral tablet (20 sources) Platelet Aggregation Inhibitor, Nonsteroidal Anti-inflammatory Drug Start: 02-19-2024 take 1 tablet by mouth in the morning aspirin 81 mg Take 1 tablet (81 mg total) by mouth in the morning. 02/19/2024 Active atorvastatin 40 mg oral tablet (20 sources) HMG-CoA Reductase Inhibitor Start: 02-19-2024 End: 03-22-2024 take 1 tablet by mouth once daily atorvastatin (LIPITOR) 40 mg tablet Indications: Coronary artery disease involving [place] coronary artery of [place] heart without angina pectoris Take 1 tablet (40 mg total) by mouth nightly. 90 tablet 3 03/22/2024 Active bisacodyl 10 mg rectal suppository (20 sources) Stimulant Laxative Start: 02-19-2024 bisacodyL (DULCOLAX) 10 mg suppository Indications: constipation Insert 1 suppository (10 mg total) into the rectum daily as needed for constipation (if magnesium hydroxide [MILK OF MAGNESIA] ineffective after 8 hours.) Indications: constipation. 02/19/2024 Active cholecalciferol 0.05 mg oral tablet (7 sources) Vitamin D take 1 tablet by mouth in the morning cholecalciferol, vitamin D3, 2,000 units tablet Take 1 tablet (2,000 Units total) by mouth in the morning. Active docosahexaenoic acid 120 mg / eicosapentaenoic acid 180 mg oral capsule (12 sources) Start: 02-10-2023 omega-3, EPA+DHA, (Super [place]-3) 1000 MG capsule Take 1 capsule by mouth in the morning. 02/10/2023 Active omega-3 (Fish Oi l) 1000 MG capsule 1 capsule 1 (one) time each day at the same time. Active docusate sodium 50 mg / sennosides, mcc 8.6 mg oral tablet (5 sources) Start: 02-19-2024 End: 03-04-2024 take 1 tablet by mouth at bedtime sennosides-docusate sodium (SENOKOT-S) 8.6-50 mg Indications: constipation Take 1 tablet by mouth in the morning and at bedtime for 14 days Indications: constipation. 02/19/2024 03/04/2024 Active 0.8 ml enoxaparin sodium 150 mg/ml prefilled syringe (20 sources) Low Molecular Weight Heparin Start: 02-09-2024 inject 0.74 mL by subcutaneous injection once enoxaparin (LOVENOX) 120 mg/0.8 mL syringe Indications: Persistent atrial fibrillation (CMS-HCC) , veneer taper (current) use of anticoagulants Inject 0.74 mL (111 mg total) under the skin Every 12 (twelve) hours. as directed by [facility] (Medication Therapy Management) 8 mL 02/09/2024 Active eplerenone 25 mg oral tablet (20 sources) Aldosterone Antagonist Start: 10-05-2017 End: 11-15-2024 take 1 tablet by mouth in the morning eplerenone (INSPRA) 25 mg tablet Take 1 tablet (25 mg total) by mouth in the morning. 90 tablet 1 11/15/2024 Active Comment on above: Take 25 mg by mouth once daily. furosemide 20 mg oral tablet (20 sources) Loop Diuretic Start: 03-22-2024 take 1 tablet by mouth once daily furosemide (LASIX) 20 mg tablet Indications: Chronic heart failure with preserved ejection fraction (CMS-HCC) Take 1 tablet (20 mg total) by mouth daily. 90 tablet 3 03/22/2024 Active Start: 02-29-2024 End: 03-15-2024 take 2 tablets by mouth twice daily before mealtime, then take 2 tablets by mouth once daily furosemide (LASIX) 20 mg tablet Indications: S/P CABG (coronary artery bypass graft) Take 2 tablets (40 mg total) by mouth 2 (two) times a day before meals for 5 days, THEN 2 tablets (40 mg total) daily for 10 days. 40 tablet 02/29/2024 03/15/2024 Active Start: 11-05-2022 End: 02-29-2024 furosemide (Lasix) 20 MG tab let 02/11/2023 Active levothyroxine sodium 0.1 mg oral tablet (20 sources) l-Thyroxine Start: 05-19-2024 End: 05-19-2024 take 1 tablet by mouth before mealtime levothyroxine (Synthroid, Levoxyl) 150 MCG tablet Indications: Adult hypothyroidism (CMS/HCC) Take 1 tablet (150 mcg) by mouth in the morning. Take before meals. 90 tablet 3 05/19/2024 Active Start: 02-10-2023 End: 06-08-2025 take 1 tablet by mouth before mealtime levothyroxine (Synthroid, Levoxyl) 100 MCG tablet Indications: Adult hypothyroidism Take 1 tablet (100 mcg) by mouth in the morning. Take before meals. 90 tablet 3 06/08/2024 06/08/2025 Active Synthroid 100 MC G Oral for 90 Days Active Comment on above: Take 100 mcg by mout h daily before breakfast. losartan potassium 25 mg oral tablet (16 sources) Angiotensin 2 Receptor Ortiz Start: 06-21-19 End: 08-19-19 take 1 tablet by mouth in the morning losartan (Cozaar) 25 MG tablet Take 25 mg by mouth in the morning. 06/20/2024 Active magnesium hydroxide 80 mg/ml oral suspension (20 sources) Start: 02-19-20 24 take 15 mL by mouth once daily as needed for constipation magnesium hydroxide (MILK OF MAGNESIA) 400 mg/5 mL suspension Indications: constipation Take 15 mL by mouth daily as needed (constipation) Indications: constipation. 02/19/2024 Active Start: 04-08-2018 take 30 mL by mouth once daily as needed for constipation magnesium hydroxide (MOM) 400 mg/5 mL suspension Take 30 mL by mouth once daily as needed for Constipation. 473 mL 0 04/08/2018 Active Comment on above: Take 30 mL by mouth once daily as needed for Constipation. melatonin 5 mg oral tablet (20 sources) Start: 4 take 1 tablet by mouth once daily as needed melatonin (CIRCADIN) 5 mg tablet Take 1 tablet (5 mg total) by mouth nightly as needed (Insomnia). 02/19/2024 Active meloxicam 15 mg oral tablet (20 sources) Nonsteroidal Anti-inflammatory Drug Start: 4 take 1 tablet by mouth once daily as needed for pain meloxicam (Mobic) 15 MG tablet Indications: Primary osteoarthritis of left shoulder Take 1 tablet (15 mg) by mouth Daily as needed for mild pain or moderate pain 90 tablet 3 10/28/2023 Active Start: 10-28-2023 take 1 tablet by nando once daily as needed for pain meloxicam (Mobic) 15 MG tablet Indications: Primary osteoarthritis of left shoulder Take 1 tablet (15 mg) by mouth Daily as needed for mild pain or moderate pain 90 tablet 3 10/28/2023 Active Start: 10-19-2023 End: 10-28-2023 take 1 tablet by mouth once daily as needed for pain meloxicam (Mobic) 15 MG tablet Indications: Primary osteoarthritis of left shoulder Take 1 tablet (15 mg) by mouth Daily as needed for mild pain or moderate pain 90 tablet 3 10/28/2023 Active Start: 02-10-2023 take 15 mg by mouth every other day Meloxicam Active 15 MG PO Q2D February 10, 2023 12:00am Start: 12-09-2017 take 1 tablet by nando th every other day meloxicam (MOBIC) 15 mg tablet Take 15 mg by mouth once daily. Been taking one every other day 0 12/09/2017 Active Comment on above: Take 15 mg by mouth once daily. Been taking one every other day 24 hr metoprolol succinate 25 mg extended release oral tablet (20 sources) beta-Adrenergic Ortiz Start: 06-21-2024 take 1 tablet by mouth once daily metoprolol succinate XL (Toprol-XL) 25 MG 24 hr tablet Take 25 mg by mouth Daily 06/21/2024 Active Start: 06-20-2024 take 0.5 tablet by m outh once daily at dinner metoprolol succinate XL (TOPROL XL) 25 mg 24 hr tablet Indications: Ischemic cardiomyopathy Take 0.5 tablets (12.5 mg total) by mouth daily with dinner. 90 tablet 3 06/20/2024 Active Start: 02-19-2024 End: 06-20-2024 take 1 tablet by mouth once metoprolol tartrate (LOPRE SSOR) 25 mg tablet Indications: Coronary artery disease involving [place] coronary artery of [place] heart without angina pectoris , Persistent atrial fibrillation (CMS-HCC) Take 1 tablet (25 mg total) by mouth every 12 (twelve) hours. 180 tablet 3 03/22/2024 06/20/2024 Discontinued (Alternate therapy) End: 07-18-2024 take 1 tablet by mouth in the morning metoprolol tartrate (Lopressor) 25 MG tablet Take 25 mg by mouth in the morning and 25 mg before bedtime. 07/18/2024 Discontinued Nutritional Supplements (SALMON OIL PO) (1 source) Nutritional Supplements (SALMON OIL PO) Take by mouth Active [place] 0-Dqs-Xtz-Fish Oil (Fish Oil) 1,200 (144-216) mg Capsule (2 sources) Start: 02-11-20 take 1 capsule by mouth once daily in the morning [place] 3-Srp-Xpe-Fish Oil (Fish Oil) 1,200 (144-216) mg Capsule Active 1 CAP PO Every morning February 10, 2023 12:00am pantoprazole 40 mg delayed release oral tablet (20 sources) Proton Pump Inhibitor Start: 02-20-20 24 End: 07-19-19 25 take 1 tablet by mouth once daily before breakfast pantoprazole (PROTONIX) 40 mg EC tablet Take 1 tablet (40 mg total) by mouth every morning before breakfast. 02/20/2024 Active salmon oil/omega-3 fatty acids (SALMON OIL-1000 ORAL) (7 sources) take 2 g by mouth in the morning salmon oil/omega-3 fatty acids (SALMON OIL-1000 ORAL) Take 2 g by mouth in the morning. Active tamsulosin hydrochloride 0.4 mg oral capsule (20 sources) alpha-Adrenergic Ortiz Start: 02-19-20 End: 07-19-19 take 1 capsule by mouth once daily tamsulosin (FLOMAX) 0.4 mg capsule Take 1 capsule (0.4 mg total) by mouth nightly. 02/19/2024 Active warfarin sodium 4 mg oral tablet (20 sources) Vitamin K Antagonist Start: 04-07-19 End: 06-14-19 take 0.5-1 tablets by mouth in the evening warfarin (COUMADIN) 4 mg tablet Indications: Persistent atrial fibrillation (CMS-HCC) Take 0.5-1 tablets (2-4 mg total) by mouth in the evening. As directed by [facility]. 30 tablet 1 06/13/2024 Active Start: 04-07-2022 take 1 tablet by nando th two times weekly Warfarin (Jantoven) 4 mg tablet Active 2 MG PO Twice a Week February 24, 2023 12:00am 4 mg tue, thu, thu, sat, sun 2 mg mon and th Start: 11-27-2020 warfarin (Coum gal) 4 MG tablet Take by mouth Daily. 04/07/2022 Active Comment on above: Take 2-4 mg [...] 5 mg by mouth t wice daily. bisoprolol fumarate 5 mg / hydroCHLOROthiazide 6.25 mg oral tablet (20 sources) Thiazide Diuretic, beta-Adrenergic Ortiz Start: 02-23-2023 End: 10-30-2023 bisoprolol-hydroC HLOROthiazide (ZIAC) 5-6.25 mg per tablet TAKE 1 TABLET IN THE EVENING. 90 tablet 1 10/30/2023 Suspended Start: 02-23-2023 bisoprolol-hyd roCHLOROthiazide (Ziac) 5-6.25 MG tablet 02/23/2023 Active Start: 02-10-2023 take 1 tablet by nando th once daily in the morning Bisoprolol-Hydrochlorothiazide Active 1 TAB PO Every morning February 10, 2023 12:00am Bisoprolol-hydro CHLOROthiazide 5-6.25 MG Oral for 90 Days Active chlorhexidine gluconate 1.2 mg/ml mouthwash (6 sources) Start: 02-09-2024 take 1 dose by mouth twice daily chlorhexidine (PERIDEX) 0.12 % solution Apply 15 mL to the mouth or throat in the morning and 15 mL before bedtime. Swish in mouth for 30 seconds then spit it out. Do this twice daily with the last dose being administered the morning of your heart surgery.. 120 mL 02/09/2024 Suspended mupirocin 0.02 mg/mg topical ointment (6 sources) RNA Synthetase Inhibitor Antibacterial Start: 02-09-2024 End: 02-19-2024 mupirocin (BACTROBAN) 2 % ointment Apply 1 Application topically in the morning and 1 Application before bedtime. Do all this for 10 days. Apply a thin layer of ointment to the inside of both nostrils with a cotton swab. Do this twice daily with the last dose being administered the morning of your heart surgery.. 22 g 02/09/2024 02/19/2024 Suspended omega 5-ego-zly-fish oil 300-1,000 mg capsule (20 sources) omega 8-zve-jxm-fish oil 300-1,000 mg capsule Take by mouth. Suspended omega 3-dha-epa- fish oil 300-1,000 mg capsule Take by mouth. Active omega 3-dha-epa- fish oil 300-1,000 mg capsule Take by mouth. 0 Active rosuvastatin calcium 5 mg oral tablet (6 sources) HMG-CoA Reductase Inhibitor Start: 08-21-2022 End: 01-18-2024 take 1 tablet by mouth in the morning rosuvastatin (Crestor) 5 MG tablet Take 5 mg by mouth in the morning. 08/21/2022 01/18/2024 Discontinued Problems Active Problems Problem Classification Problem Date Documented Da te Episodic/Chronic Aortic; peripheral; and visceral artery aneurysms (5 sources) Dilatation of aorta; Translations: [Aortic ectasia, unspecified site] Onset: 01-20-2024 02-09-2024 Chronic Cardiac dysrhythmias (20 sources) Persistent atrial fibrillation; Translations: [Other persistent atrial fibrillation] Onset: 01-12-2017 10-02-2022 Chronic Complications of surgical procedures or medical care (1 source) Disruption of external operation (surgical) wound, not elsewhere classified, initial encounter Episodic Congestive heart failure; nonhypertensive (20 sources) Chronic systolic heart failure; Translations: [Chronic systolic (congestive) heart failure] Onset: 03-21-2024 03-21-2024 Chronic Coronary atherosclerosis and other heart disease (20 sources) Atypical angina; Translations: [Anginal equivalent] Onset: 01-29-2024 02-02-2024 Chronic Disorders of lipid metabolism (20 sources) Dyslipidemia; Translations: [Hyperlipidemia, unspecified] Onset: 10-28-2023 10-28-2023 Chronic Essential hypertension (20 sources) Essential (primary) hypertension; Translations: [Benign hypertension] Onset: 01-12-2017 10-02-2022 Chronic Mycoses (2 sources) Onychomycosis; Translations: [Tinea unguium] 03-24-2024 Episodic Osteoarthritis (20 sources) Osteoarthritis of joint of left shoulder region; Translations: [Primary osteoarthritis, left shoulder] Onset: 05-21-2015 05-21-2015 Chronic Other acquired deformities (1 source) Contracture, left ankle; Translations: [CONTRACTURE LEFT ANKLE] Onset: 01-29-2022 Chronic Other and ill-defined heart disease (20 sources) Left ventricular cardiac dysfunction; Translations: [Heart disease, unspecified] Onset: 01-29-2024 02-02-2024 Chronic Other and ill-defined heart disease (2 sources) Heart disease, unspecified; Translations: [Heart disease, unspecified] Onset: 01-29-2024 Chronic Other and unspecified benign neoplasm (2 sources) Melanocytic nevus of trunk; Translations: [Melanocytic nevi of trunk] 07-26-2024 Episodic Other and unspecified benign neoplasm (2 sources) Skin lesion; Translations: [Hemangioma of skin and subcutaneous tissue] 07-26-2024 Episodic Other bone disease and musculoskeletal deformities (1 source) Bone necrosis; Translations: [Osteonecrosis, unspecified] Chronic Other connective tissue disease (1 source) Presence of artificial knee joint, bilateral; Translations: [PRESENCE ARTIFICIAL KNEE JNT BILAT] Onset: 01-29-2022 Chronic Other connective tissue disease (20 sources) History of left shoulder arthroplasty; Translations: [Presence of left artificial shoulder joint] Onset: 05-13-2018 10-02-2022 Chronic Other connective tissue disease (5 sources) Pain in left foot; Translations: [PAIN IN LEFT FOOT] Onset: 04-10-2022 Episodic Other injuries and conditions due to external causes (1 source) Other injury of unspecified body region, initial encounter Episodic Other nervous system disorders (20 sources) Difficulty walking; Translations: [Difficulty in walking, not elsewhere classified] Onset: 07-10-2021 07-10-2021 Chronic Other non-epithelial cancer of skin (3 sources) Basal cell carcinoma of skin of other parts of face; Translations: [History of malignant basal cell neoplasm of skin] Onset: 02-24-2023 07-26-2024 Episodic Other non-traumatic joint disorders (20 sources) Bilateral rotator cuff arthropathy of shoulder; [...] and joints of left foot] Episodic Other skin disorders (2 sources) Seborrheic keratosis; Translations: [Other seborrheic keratosis] 07-26-2024 Episodic Other skin disorders (2 sources) Actinic keratosis; Translations: [Actinic keratosis] 07-26-2024 Episodic Other skin disorders (2 sources) Lentiginosis; Translations: [Other melanin hyperpigmentation] 07-26-2024 Episodic Other skin disorders (2 sources) Skin tag; Translations: [Other hypertrophic disorders of the skin] 07-26-2024 Episodic Pulmonary heart disease (20 sources) Pulmonary hypertension; Translations: [Pulmonary hypertension, unspecified] Onset: 01-29-2024 02-02-2024 Chronic Thyroid disorders (20 sources) Hypothyroidism, unspecified; Translations: [Hypothyroidism] Onset: 01-29-2022 10-28-2023 Chronic Unclassified (4 sources) CONTACT W/AND (SUSP) EXPOS COVID-19; Translations: [CONTACT W/AND (SUSP) EXPOS COVID-19] Onset: 01-29-2022 Unclassified (1 source) Chronic atrial fibrillation, unspecified; Translations: [CHRONIC ATRIAL FIBRILLATION UNSPEC] Onset: 01-29-2022 Unclassified (1 source) Encounter for preprocedural laboratory examination; Translations: [Encounter for preprocedural laboratory examination] Onset: 02-10-2023 Unclassified (2 sources) Other persistent atrial fibrillation; Translations: [Other persistent atrial fibrillation] Onset: 01-14-2022 Unclassified (1 source) PHTN, angina equivalent, LVD Onset: 02-09-2024 Past or Other Problems Problem Classification Problem Date Documented Da te Episodic/Chronic Acquired foot deformities (20 sources) Acquired valgus deformity of left ankle; Translations: [Valgus deformity, not elsewhere classified, left ankle] Onset: 07-10-2021 Episodic Complication of device; implant or graft (20 sources) Pain due to internal prosthetic device; Translations: [Pain due to internal orthopedic prosthetic devices, implants and grafts, initial encounter] Onset: 02-03-2023 02-03-2023 Episodic Coronary atherosclerosis and other heart disease (2 sources) Presence of aortocoronary bypass graft; Translations: [Presence of aortocoronary bypass graft] Onset: 02-15-2024 Episodic Deficiency and other anemia (2 sources) Anemia, unspecified; Translations: [Anemia, unspecified] Onset: 02-15-2024 Episodic Mood disorders (20 sources) Mood disorders Onset: 12-15-2019 Resolved: 01-18-2024 01-18-2024 Nonspecific chest pain (20 sources) Chest pain; Translations: [Chest pain, unspecified] Onset: 04-09-2016 Resolved: 01-14-2018 01-14-2018 Episodic Other aftercare (3 sources) veneer taper (current) use of anticoagulants; Translations: [GRAPHIC COORDINATOR CURRNT USE ANTICOAGULANTS] Onset: 01-29-2022 Episodic Other aftercare (4 sources) Other senior care (current) drug therapy; Translations: [OTH GRAPHIC COORDINATOR CURRENT DRUG THERAPY] Onset: 10-23-2021 Episodic Other aftercare (20 sources) Long-term current use of anticoagulant; Translations: [nursing home (current) use of anticoagulants] Onset: 07-30-2018 10-02-2022 Episodic Other aftercare (20 sources) Long-term current use of drug therapy; Translations: [Other telemetry monitor (current) drug therapy] Onset: 10-28-2023 10-28-2023 Episodic Other aftercare (4 sources) Patient encounter status; Translations: [Other senior care (current) drug therapy] Onset: 10-28-2023 10-28-2023 Episodic Other aftercare (20 sources) Anticoagulant effect; Translations: [nursing home (current) use of anticoagulants] Onset: 02-19-2024 02-19-2024 Episodic Other aftercare (1 source) Encounter for therapeutic drug level monitoring; Translations: [Encounter for therapeutic drug level monitoring] Onset: 05-27-2024 Episodic Other circulatory disease (1 source) Other specified symptoms and signs involving the circulatory and respiratory systems; Translations: [OTH SPEC SX SIGNS INVLV CIRC RS] Onset: 01-29-2022 Episodic Other connective tissue disease (20 sources) Full thickness rotator cuff tear; Translations: [Complete rotator cuff tear or rupture of left shoulder, not specified as traumatic] Onset: 05-21-2015 05-21-2015 Episodic Other connective tissue disease (20 sources) Rotator cuff arthropathy of right shoulder; Translations: [Unspecified rotator cuff tear or rupture of right shoulder, not specified as traumatic] Onset: 01-27-2018 01-27-2018 Episodic Other connective tissue disease (20 sources) Rotator cuff arthropathy of left shoulder; Translations: [Unspecified rotator cuff tear or rupture of left shoulder, not specified as traumatic] Onset: 01-27-2018 02-16-2018 Episodic Other connective tissue disease (20 sources) Dysfunction of posterior tibial tendon; Translations: [Posterior tibial tendinitis, unspecified leg] Onset: 07-10-2021 07-10-2021 Episodic Other ear and sense organ disorders (20 sources) Otalgia, left ear; Translations: [Otalgia, unspecified] Onset: 12-15-2019 Resolved: 07-18-2024 10-02-2022 Episodic Other lower respiratory disease (1 source) Other nonspecific abnormal finding of lung field; Translations: [OTH NONSPECIFIC ABN FIND LNG FIELD] Onset: 10-24-2021 Episodic Other lower respiratory disease (20 sources) Dyspnea; Translations: [Shortness of breath] Onset: 04-09-2016 Resolved: 05-04-2023 05-04-2023 Episodic Other lower respiratory disease (1 source) Shortness of breath; Translations: [Shortness of breath] Onset: 07-13-2017 Episodic Other nervous system disorders (12 sources) Drug-induced myopathy; Translations: [Drug-induced myopathy] Onset: 01-18-2024 Resolved: 03-21-2024 01-18-2024 Episodic Other nervous system disorders (20 sources) Abnormal gait; Translations: [Unspecified abnormalities of gait and mobility] Onset: 10-02-2022 Resolved: 05-04-2023 05-04-2023 Episodic Other nervous system disorders (16 sources) Drug-induced myopathy; Translations: [Toxic myopathy] Onset: 01-18-2024 Resolved: 03-21-2024 03-21-2024 Episodic Other non-traumatic joint disorders (1 source) Other instability, left ankle; Translations: [OTHER INSTABILITY LEFT ANKLE] Onset: 01-29-2022 Episodic Other non-traumatic joint disorders (20 sources) Pain in left knee; Translations: [Pain in joint, lower leg] Onset: 10-02-2022 10-02-2022 Episodic Loren-; endo-; and myocarditis; cardiomyopathy (except that caused by tuberculosis or sexually transmitted disease) (1 source) Pericardial effusion (noninflammatory); Translations: [PERICARDIAL EFFUSION NONINFLAMM] Onset: 10-24-2021 Episodic Superficial injury; contusion (20 sources) Contusion of knee; Translations: [Contusion of unspecified knee, initial encounter] Onset: 10-02-2022 Resolved: 03-21-2024 10-02-2022 Episodic Unclassified (1 source) CONTACT W/AND (SUSP) EXPOS COVID-19; Translations: [CONTACT W/AND (SUSP) EXPOS COVID-19] Onset: 06-04-2022 Results Test Name Value Interpretation Reference Range Facility POCT Protime / INRon 025 INR Coag (PPP) [Relative time] 3 {INR} Abnormal 0.8 - 1.2 [facility] Interpretation and review of laboratory results Abnormal [facility] ITPon 09-19-2024 [place] [address] Cardiac Rehab Report Signed Patient: REMI ZARCO MR#: [id number] : 1945 Acct:[id number] Age/Sex: 79 / M ADM Date: 09/15/24 Loc: CR Attending Dr: Non-Staff Physician Carol Ordering Physician: Atif Shankar D.O. Date of Service: 09/15/24 Procedure(s): ITP Accession Number(s): [id number] cc: [facility] Test Date: 2024-09-15 Pat Name: REMI ZARCO Department: Room: - Gender: Male Edge Setter: : 1945 Requested By: Atif Shankar Order Number: [id number] Reading MD: Atif Shankar Interpretive Statements Patient has completed the outlined treatment plan. Electronically Signed On 09-19-2024 18:02:15 EDT by Atif Shankar Dictated By: Atif Shankar D.O. Signed By: 09/19/24180109/19/241801 DD/ TD/TT: [employer] Business Analyst: [facility] Radiology, Radiologi MD jenelle - 09/19/2024 [place] [address] Cardiac Rehab Report Signed Patient: REMI ZARCO MR#: [id number] : 1945 Acct:[id number] Age/Sex: 79 / M ADM Date: 09/15/24 Loc: CR Attending Dr: Danii-Staff Physician [place] Ordering Physician: Atif Shankar D.O. Date of Service: 09/15/24 Procedure(s): ITP Accession Number(s): [id number] cc: [facility] Test Date: 2024-09-15 Pat Name: REMI ZARCO Department: Room: - Gender: Male Edge Setter: : 1945 Requested By: Atif Shankar Order Number: [id number] Higinio MD: Atif Shankar Interpretive Statements Patient has completed the outlined treatment plan. Electronically Signed On 09-19-2024 18:02:15 EDT by Atif Shankar Dictated By: Atif Shankar D.O. Signed By: 09/19/24180109/19/241801 DD/ 5 TD/TT: [employer] Business Analyst: [facility] ITPOrdered By: Radiologist R adiology on 09-19-2024 [facility] Work Phone: POCT Protime / INRon 025 INR Coag (PPP) [Relative time] 2.8 {INR} Abnormal 0.8 - 1.2 [facility] Interpretation and review of laboratory results Abnormal [facility] ITPon 09-15-2024 Radiology Study observation (narrative) [facility] ITPon 09-14-2024 [place] [address] Cardiac Rehab Report Signed Patient: REMI ZARCO MR#: [id number] : 1945 Acct:[id number] Age/Sex: 79 / M ADM Date: 09/12/24 Loc: CR Attending Dr: Non-Staff Physician Carol Ordering Physician: Atif Shankar D.O. Date of Service: 09/12/24 Procedure(s): ITP Accession Number(s): [id number] cc: [facility] Test Date: 2024-09-12 Pat Name: REMI ZARCO Department: Room: - Gender: Male Edge Setter: : 1945 Requested By: Atif Shankar Order Number: [id number] Higinio MD: Atif Shankar Interpretive Statements Okay to continue with outlined treatment plan. Electronically Signed On 09-14-2024 10:12:45 EDT by Atif Shankar Dictated By: Atif Shankar D.O. Signed By: 09/14/24 1013 09/14/24 1013 DD/ 0802 TD/TT: [employer] Business Analyst: [facility] RadiologyEliel MD - 09/14/2024 [place] [address] Cardiac Rehab Report Signed Patient: REMI ZARCO MR#: [id number] : 1945 Acct:[id number] Age/Sex: 79 / M ADM Date: 09/12/24 Loc: CR Attending Dr: Danii-Staff Physician [place] Ordering Physician: Atif Shankar D.O. Date of Service: 09/12/24 Procedure(s): ITP Accession Number(s): [id number] cc: [facility] Test Date: 2024-09-12 Pat Name: REMI ZARCO Department: Room: - Gender: Male Edge Setter: : 1945 Requested By: Atif Shankar Order Number: [id number] Reading MD: Atif Shankar Interpretive Statements Okay to continue with outlined treatment plan. Electronically Signed On 09-14-2024 10:12:45 EDT by Atif Shankar Dictated By: Atif Shankar D.O. Signed By: 09/14/24 1013 09/14/24 1013 DD/ 0802 TD/TT: [employer] Business Analyst: [facility] ITPOrdered By: Radiologist R adiology on 09-14-2024 [facility] Work Phone: ITPon 09-12-2024 Radiology Study observation (narrative) [facility] ITPon 08-22-2024 [place] [address] Cardiac Rehab Report Signed Patient: REMI ZARCO MR#: [id number] : 1945 Acct:[id number] Age/Sex: 79 / M ADM Date: 08/22/24 Loc: CR Attending Dr: NicolasStaff Physician [place] Ordering Physician: Gil Gee M.D. Date of Service: 08/19/24 Procedure(s): ITP Accession Number(s): [id number] cc: [facility] Test Date: 2024-08-19 Pat Name: REMI ZARCO Department: Room: - Gender: Male Edge Setter: : 1945 Requested By: GIL GEE Order Number: [id number] Reading MD: Atif Shankar Interpretive Statements Okay to continue with outlined treatment plan. Electronically Signed On 08-22-2024 18:31:30 EDT by Atif Shankar Dictated By: Atif Shankar D.O. Signed By: 08/22/24183108/22/241831 DD/ 0746 TD/TT: [employer] Business Analyst: [facility] Radiology Radiologsteven almanzar MD - 08/22/2024 [place] [address] Cardiac Rehab Report Signed Patient: REMI ZARCO MR#: [id number] : 1945 Acct:[id number] Age/Sex: 79 / M ADM Date: 08/22/24 Loc: CR Attending Dr: Non-Staff Physician Carol Ordering Physician: Gil Gee M.D. Date of Service: 08/19/24 Procedure(s): ITP Accession Number(s): [id number] cc: [facility] Test Date: 2024-08-19 Pat Name: REMI ZARCO Department: Room: - Gender: Male Edge Setter: : 1945 Requested By: GIL GEE Order Number: [id number] Reading MD: Atif Shankar Interpretive Statements Okay to continue with outlined treatment plan. Electronically Signed On 08-22-2024 18:31:30 EDT by Atif Shankar Dictated By: Atif Shankar D.O. Signed By: 08/22/24183108/22/241831 DD/ 0746 TD/TT: [employer] Business Analyst: [facility] ITPOrdered By: Radiologist R adiology on 08-22-2024 [facility] Work Phone: ITPon 08-19-2024 Radiology Study observation (narrative) [facility] No Panel Informationon 07-26 [facility] XR FOOT RT MIN 3Von 07-22-19 [place] [address] XRay Report Signed Patient: REMI ZARCO MR#: [id number] : 1945 Acct:[id number] Age/Sex: 79 / M ADM Date: 07/21/24 Loc: RAD Attending Dr: Lexi Hernandez D.P.M. Ordering Physician: Lexi Hernandez D.P.M. Date of Service: 07/21/24 Procedure(s): XR foot RT min 3V Accession Number(s): [id number] cc: Lexi Hernandez D.P.M.; Gil Gee M.D. [place] [id number] Patient Name: REMI ZARCO MRN: [id number] date: 1945 Sex: M Assigned Patient Location: [facility] Current Patient Location: [facility] Accession/Order Number: [id number] Exam Date: 07/21/2024 13:39 Report Date: 07/21/2024 13:40 At the request of: LEXI HERNANDEZ DPRatna Procedure: XR foot RT min 3V XR foot RT min 3V 07/21/2024 12:32 PM SIGNS AND SYMPTOMS: Pain and swelling of the right foot, recent fall PROTOCOL: Frontal, lateral, and oblique radiographs of the right foot COMPARISON: None FINDINGS: There is narrowing of the first metatarsophalangeal junction. Degenerative changes are noted at the tarsometatarsal junctions throughout the foot. There is no fracture or dislocation. There is nonspecific diffuse soft tissue swelling. There is plantar surface calcaneal spurring. XR/XR foot RT min 3V IMPRESSION: No fracture or dislocation. Degenerative changes are noted with soft tissue swelling diffusely. Impression dictated by: Cristian Barrios M.D. 07/21/2024 1:40 PM Dictation Location: [place] [address] Electronically authenticated by: [id number] Y Date: 07/21/2024 13:40 Dictated By: Cristian Barrios M.D. Signed By: 07/21/24 1342 DD/ 1340 TD/TT: [employer] Business Analyst: [facility] Radiology, Radiologi MD jenelle - 07/21/2024 [place] [address] XRay Report Signed Patient: REMI ZARCO MR#: [id number] : 1945 Acct:[id number] Age/Sex: 79 / M ADM Date: 07/21/24 Loc: RAD Attending Dr: Lexi Hernandez D.P.M. Ordering Physician: Lexi Hernandez D.P.M. Date of Service: 07/21/24 Procedure(s): XR foot RT min 3V Accession Number(s): [id number] cc: Lexi Hernandez D.P.M.; Gil Gee M.D. The [place] [address] Patient Name: REMI ZARCO MRN: [facility]:[id number] date: 1945 Sex: M Assigned Patient Location: [facility] Current Patient Location: [facility] Accession/Order Number: [id number] Exam Date: 07/21/2024 13:39 Report Date: 07/21/2024 13:40 At the request of: LEXI HERNANDEZ DPRatna Procedure: XR foot RT min 3V XR foot RT min 3V 07/21/2024 12:32 PM SIGNS AND SYMPTOMS: Pain and swelling of the right foot, recent fall PROTOCOL: Frontal, lateral, and oblique radiographs of the right foot COMPARISON: None FINDINGS: There is narrowing of the first metatarsophalangeal junction. Degenerative changes are noted at the tarsometatarsal junctions throughout the foot. There is no fracture or dislocation. There is nonspecific diffuse soft tissue swelling. There is plantar surface calcaneal spurring. XR/XR foot RT min 3V IMPRESSION: No fracture or dislocation. Degenerative changes are noted with soft tissue swelling diffusely. Impression dictated by: Cristian Barrios M.D. 07/21/2024 1:40 PM Dictation Location: [place] [address] Electronically authenticated by: [id number] Y Date: 07/21/2024 13:40 Dictated By: Cristian Barrios M.D. Signed By: 07/21/24 1342 DD/ 134 TD/TT: [employer] Business Analyst: STEPHEN Navarro Radiology Study observation (narrative) [facility] XR FOOT RT MIN 3VOrdered By: Radiologist Radiology on 07-21-2024 [facility] Work Phone: ITPon 07-18-2024 [place] [address] Cardiac Rehab Report Signed Patient: REMI ZARCO MR#: [id number] : 1945 Acct:[id number] Age/Sex: 79 / M ADM Date: 07/05/24 Loc: CR Attending Dr: Non-Staff Physician Carol Ordering Physician: Gil Gee M.D. Date of Service: 07/18/24 Procedure(s): [facility] Accession Number(s): [id number] cc: [facility] Test Date: 2024-07-18 Pat Name: REMI ZARCO Department: Room: - Gender: Male Edge Setter: : 1945 Requested By: GIL GEE Order Number: [id number] Reading MD: Atif Shankar Interpretive Statements Good that he can restart exercise with ankle. The patient can be educated that it is not necessary to always involve the lower extremities in order to exercise - there are plenty of core, upper body, and upper extremity techniques which can be done without aggravating an ankle injury. Electronically Signed On 07-18-2024 15:56:00 EDT by Atif Shankar Dictated By: Atif Shankar D.O. Signed By: 07/18/24 1556 07/18/24 1556 DD/ 1108 TD/TT: [employer] Business Analyst: Adan Hernandezogsteven almanzar MD - 07/18/2024 [place] [address] Cardiac Rehab Report Signed Patient: ERMI ZARCO MR#: [id number] : 1945 Acct:[id number] Age/Sex: 79 / M ADM Date: 07/05/24 Loc: CR Attending Dr: Non-Staff Physician Carol Ordering Physician: Gil Gee M.D. Date of Service: 07/18/24 Procedure(s): ITP Accession Number(s): [id number] cc: [facility] Test Date: 2024-07-18 Pat Name: REMI ZARCO Department: Room: - Gender: Male Edge Setter: : 1945 Requested By: GIL GEE Order Number: [id number] Reading MD: Atif Shankar Interpretive Statements Good that he can restart exercise with ankle. The patient can be educated that it is not necessary to always involve the lower extremities in order to exercise - there are plenty of core, upper body, and upper extremity techniques which can be done without aggravating an ankle injury. Electronically Signed On 07-18-2024 15:56:00 EDT by Atif Shankar Dictated By: Atif Shankar D.O. Signed By: 07/18/24 1556 07/18/24 1556 DD/ 1108 TD/TT: [employer] Business Analyst: [facility] Radiology Study observation (narrative) [facility] ITPOrdered By: Radiologist R adiology on 07-18-2024 [facility] Work Phone: POCT Protime / INRon 025 INR Coag (PPP) [Relative time] 1.6 {INR} Abnormal 0.8 - 1.2 [facility] Interpretation and review of laboratory results Abnormal [facility] No Panel InformationOrdered By: Radiologist Radiology on 07-14-2024 [facility] [employer] Work Phone: No Panel Informationon 07-14 Radiology Study observation (narrative) [facility] XR ANKLE LT MIN 3Von [address] [address] XRay Report Signed Patient: REMI ZARCO MR#: [id number] : 1945 Acct:[id number] Age/Sex: 79 / M ADM Date: 07/14/24 Loc: RAD Attending Dr: Lexi Hernandez D.P.M. Ordering Physician: Lexi Hernandez D.P.M. Date of Service: 07/14/24 Procedure(s): XR ankle LT min 3V Accession Number(s): [id number] cc: Lexi Hernandez D.P.M.; Gil Gee M.D. The [place] [address] Patient Name: REMI ZARCO MRN: [facility]:[id number] date: 1945 Sex: M Assigned Patient Location: [facility] Current Patient Location: [facility] Accession/Order Number: [id number] Exam Date: 07/14/2024 13:44 Report Date: 07/14/2024 13:46 At the request of: LEXI HERNANDEZ DPM Procedure: XR foot LT min 3V LEFT ANKLE - 3 views left foot 3 views CLINICAL HISTORY: Arthritis COMPARISON: None FINDINGS: Postoperative changes involving the hindfoot and midfoot without hardware complication. There appears to be hardware fixating a calcaneus fracture with underlying sclerosis suggestive of healing response. There is severe degenerative changes involving the ankle mortise as well as the hindfoot and midfoot. No definite acute bony process is seen. XR/XR ankle LT min 3V IMPRESSION: NO HARDWARE COMPLICATION. THERE APPEARS TO BE A HEALING CALCANEAL FRACTURE NOTED. Impression dictated by: Pete Jacobson Jr., DClarisseOClarisse 07/14/2024 1:46 PM Dictation Location: [place] [address] Electronically authenticated by: [id number] Y Date: 07/14/2024 13:46 Dictated By: Pete Jacobson M.D. Signed By: 07/14/24 1349 DD/ 134 TD/TT: [employer] Business Analyst: [facility] Radiology, Radiologi MD jenelle - 07/14/2024 [place] [address] XRay Report Signed Patient: REMI ZARCO MR#: [id number] : 1945 Acct:[id number] Age/Sex: 79 / M ADM Date: 07/14/24 Loc: RAD Attending Dr: Lexi Hernandez D.P.M. Ordering Physician: Lexi Hernandez D.P.M. Date of Service: 07/14/24 Procedure(s): XR ankle LT min 3V Accession Number(s): [id number] cc: Lexi Hernandez D.P.M.; Gil Gee M.D. [place] [address] Patient Name: REMI ZARCO MRN: [id number]:[id number] date: 1945 Sex: M Assigned Patient Location: [facility] Current Patient Location: [facility] Accession/Order Number: [id number] Exam Date: 07/14/2024 13:44 Report Date: 07/14/2024 13:46 At the request of: LEXI HERNANDEZ DPM Procedure: XR foot LT min 3V LEFT ANKLE - 3 views left foot 3 views CLINICAL HISTORY: Arthritis COMPARISON: None FINDINGS: Postoperative changes involving the hindfoot and midfoot without hardware complication. There appears to be hardware fixating a calcaneus fracture with underlying sclerosis suggestive of healing response. There is severe degenerative changes involving the ankle mortise as well as the hindfoot and midfoot. No definite acute bony process is seen. XR/XR ankle LT min 3V IMPRESSION: NO HARDWARE COMPLICATION. THERE APPEARS TO BE A HEALING CALCANEAL FRACTURE NOTED. Impression dictated by: Pete Jacobson Jr., DClarisseOClarisse 07/14/2024 1:46 PM Dictation Location: [place] [address] Electronically authenticated by: [id number] Y Date: 07/14/2024 13:46 Dictated By: Pete Jacobson M.D. Signed By: 07/14/24 1349 DD/ 1346 TD/TT: [employer] Business Analyst: STEPHEN [facility] XR FOOT LT MIN 3Von 07-15-19 [place] [address] XRay Report Signed Patient: REMI ZARCO MR#: [id number] : 1945 Acct:[id number] Age/Sex: 79 / M ADM Date: 07/14/24 Loc: RAD Attending Dr: Lexi Hernandez D.P.M. Ordering Physician: Lexi Hernandez D.P.M. Date of Service: 07/14/24 Procedure(s): XR foot LT min 3V Accession Number(s): [id number] cc: Lexi Hernandez D.P.M.; Gil Gee M.D. The [place] [address] Patient Name: REMI ZARCO MRN: [facility]:[id number] date: 1945 Sex: M Assigned Patient Location: [facility] Current Patient Location: [facility] Accession/Order Number: [id number] Exam Date: 07/14/2024 13:44 Report Date: 07/14/2024 13:46 At the request of: LEXI HERNANDEZ DPM Procedure: XR foot LT min 3V LEFT ANKLE - 3 views left foot 3 views CLINICAL HISTORY: Arthritis COMPARISON: None FINDINGS: Postoperative changes involving the hindfoot and midfoot without hardware complication. There appears to be hardware fixating a calcaneus fracture with underlying sclerosis suggestive of healing response. There is severe degenerative changes involving the ankle mortise as well as the hindfoot and midfoot. No definite acute bony process is seen. XR/XR foot LT min 3V IMPRESSION: NO HARDWARE COMPLICATION. THERE APPEARS TO BE A HEALING CALCANEAL FRACTURE NOTED. Impression dictated by: Pete Jacobson Jr., D.OClarisse 07/14/2024 1:46 PM Dictation Location: [place] [address] Electronically authenticated by: [id number] Y Date: 07/14/2024 13:46 Dictated By: Pete Jacobson M.D. Signed By: 07/14/24 1349 DD/ 1346 TD/TT: [employer] Business Analyst: [facility] Radiology, Radiologsteven almanzar MD - 07/14/2024 [place] [address] XRay Report Signed Patient: REMI ZARCO MR#: [id number] : 1945 Acct:[id number] Age/Sex: 79 / M ADM Date: 07/14/24 Loc: RAD Attending Dr: Lexi Hernandez D.P.M. Ordering Physician: Lexi Hernandez D.P.M. Date of Service: 07/14/24 Procedure(s): XR foot LT min 3V Accession Number(s): [id number] cc: Lexi Hernandez D.P.M.; Gil Gee M.D. [place] [address] Patient Name: REMI ZARCO MRN: [id number] date: 1945 Sex: M Assigned Patient Location: [facility] Current Patient Location: [facility] Accession/Order Number: [id number] Exam Date: 07/14/2024 13:44 Report Date: 07/14/2024 13:46 At the request of: LEXI HERNANDEZ DPM Procedure: XR foot LT min 3V LEFT ANKLE - 3 views left foot 3 views CLINICAL HISTORY: Arthritis COMPARISON: None FINDINGS: Postoperative changes involving the hindfoot and midfoot without hardware complication. There appears to be hardware fixating a calcaneus fracture with underlying sclerosis suggestive of healing response. There is severe degenerative changes involving the ankle mortise as well as the hindfoot and midfoot. No definite acute bony process is seen. XR/XR foot LT min 3V IMPRESSION: NO HARDWARE COMPLICATION. THERE APPEARS TO BE A HEALING CALCANEAL FRACTURE NOTED. Impression dictated by: Marycarmen Vazquez Jr.OClarisse 07/14/2024 1:46 PM Dictation Location: [place] [address] Electronically authenticated by: [id number] Y Date: 07/14/2024 13:46 Dictated By: Pete Jacobson M.D. Signed By: 07/14/24 1349 DD/ 134 TD/TT: [employer] Business Analyst: STEPHEN Navarro [facility] 06-19-2024 [place] [address] Cardiac Rehab Report Signed Patient: REMI ZARCO MR#: [id number] : 1945 Acct:[id number] Age/Sex: 79 / M ADM Date: 06/16/24 Loc: CR Attending Dr: NicolasStaff Physician [place] Ordering Physician: Gil Gee M.D. Date of Service: 06/16/24 Procedure(s): ITP Accession Number(s): [id number] cc: [facility] Test Date: 2024-06-16 Pat Name: REMI ZARCO Department: Room: - Gender: Male Edge Setter: : 1945 Requested By: GIL GEE Order Number: [id number] Higinio RIVERA: WILLIE WATTS Interpretive Statements Session Date: Electronically Signed On 06-19-2024 19:59:04 EDT by WILLIE WATTS Dictated By: Willie Watts D.O. Signed By: 06/19/24195806/19/241958 DD/ 1120 TD/TT: [employer] Business Analyst: [facility] Radiology Radiologi MD jenelle - 06/19/2024 [place] [address] Cardiac Rehab Report Signed Patient: REMI ZARCO MR#: [id number] : 1945 Acct:[id number] Age/Sex: 79 / M ADM Date: 06/16/24 Loc: CR Attending Dr: NicolasStaff Physician [place] Ordering Physician: Gil Gee M.D. Date of Service: 06/16/24 Procedure(s): ITP Accession Number(s): [id number] cc: [facility] Test Date: 2024-06-16 Pat Name: REMI ZARCO Department: Room: - Gender: Male Edge Setter: : 1945 Requested By: GIL GEE Order Number: [id number] Higinio RIVERA: WILLIE WATTS Interpretive Statements Session Date: Electronically Signed On 06-19-2024 19:59:04 EDT by WILLIE WATTS Dictated By: Willie WatstOClarisse Signed By: 06/19/24195806/19/241958 DD/ 1120 TD/TT: [employer] Business Analyst: [facility] ITPOrdered By: Radiologist R adiology on 06-19-2024 [facility] Work Phone: ITPon 06-16-2024 Radiology Study observation (narrative) [facility] PROTIME AND INRon 06-10-2024 INR Coag (PPP) [Relative time] 1.9 {INR} High 0.9-1.2 [facility] Comment on above: Performed By: #### P INR #### [facility] ([id number]) [address], [address] [place] [address] PT Coag (PPP) [Time] 22.1 s High 9.8-13.2 [facility] Comment on above: Performed By: #### P INR #### [facility] ([id number]) [address] [facility] [facility], [address] [place] [address] ITPon 06-04-2024 [place] [address] Cardiac Rehab Report Signed Patient: REMI ZARCO MR#: [id number] : 1945 Acct:[id number] Age/Sex: 78 / M ADM Date: 06/02/24 Loc: CR Attending Dr: Non-Staff Physician Carol Ordering Physician: Gil Gee M.D. 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 Signed By: 06/04/24 1429 06/04/24 1429 DD/ 8 TD/TT: [employer] Business Analyst: [facility] Radiology, Radiologi MD jenelle - 06/04/2024 [place] [address] Cardiac Rehab Report Signed Patient: REMI ZARCO MR#: [id number] : 1945 Acct:[id number] Age/Sex: 78 / M ADM Date: 06/02/24 Loc: CR Attending Dr: Non-Staff Physician [place] Ordering Physician: Gil Gee M.D. Date of Service: 05/20/24 Procedure(s): ITP Accession Number(s): [id number] cc: 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 Signed By: 06/04/24142806/04/24 142 DD/ 8 TD/TT: [employer] Business Analyst: [facility] ITPOrdered By: Radiologist Nora adiology on 06-04-2024 [facility] Work Phone: POCT Protime / INRon 05-27- 025 INR Coag (PPP) [Relative time] 2.2 {INR} Abnormal 0.8 - 1.2 [facility] Interpretation and review of laboratory results Abnormal [facility] ITPon 05-20-2024 Radiology Study observation (narrative) [facility] POCT Protime / INRon 04-08-2 025 INR Coag (PPP) [Relative time] 1.9 {INR} Abnormal 0.8 - 1.2 [facility] Interpretation and review of laboratory results Abnormal [facility] BASIC METABOLIC PANLon 03-22 Anion gap [Moles/Vol] 10 mmol/L Normal 5-15 [facility] Comment on above: Performed By: #### B , #### [facility] ([id number]) [address], [address] [place] [address] Calcium [Mass/Vol] 9.7 mg/dL Normal 8.5-10.5 [facility] Comment on above: Performed By: #### Piedad SAHU, #### [facility] ([id number]) [address], [address] [place] [address] Chloride [Moles/Vol] 104 mmol/L Normal 98-109 [facility] Comment on above: Performed By: #### Piedad SAHU, #### [facility] ([id number]) [address], [address] [place] [address] CO2 [Moles/Vol] 27 mmol/L Normal 22-32 [facility] Comment on above: Performed By: #### Piedad SAHU, #### [facility] ([id number]) [address], [address] [place] [address] Creatinine [Mass/Vol] 1.08 mg/dL Normal 0.60-1.30 [facility] [place] [facility] Comment on above: Result Comment: METH OD TRACEABLE TO IDMS STANDARD Performed By: #### Piedad SAHU, #### [facility] ([id number]) [address], [address] [place] [address] GFR/1.73 sq M.predicted among non-blacks MDRD (S/P/Bld) [Vol rate/Area] 70 mL/min/{1.73_m2} Normal >59 [facility] Comment on above: Result Comment: Reported eGFR is based on the CKD-EPI 2020 equation that does not use a race coefficient. Performed By: #### Piedad SAHU, #### [facility] ([id number]) [address], [address] [place] [address] Glucose [Mass/Vol] 92 mg/dL Normal 65-99 [facility] Comment on above: Performed By: #### B LUIS ALBERTO, #### [facility] ([id number]) [address], [address] [place] [address] Potassium [Moles/Vol] 4.2 mmol/L Normal 3.5-5.0 [facility] Comment on above: Performed By: #### Piedad SAHU, 66215-6 #### [facility] ([id number]) [address], [address] [place] [address] Sodium [Moles/Vol] 141 mmol/L Normal 134-146 [facility] Comment on above: Performed By: #### Piedad SAHU, 28299-4 #### [facility] ([id number]) [address], [address] [place] [address] Urea nitrogen [Mass/Vol] 12 mg/dL Normal 5-27 [facility] Comment on above: Performed By: #### Piedad SAHU, #### [facility] ([id number]) [address], [address] [place] [address] MAGNESIUMon 03-22-2024 Magnesium [Mass/Vol] 2.0 mg/dL Normal 1.8-2.6 [facility] Comment on above: Performed By: #### Piedad SAHU, #### [facility] ([id number]) [address], [address] [place] [address] POCT Protime / INRon 03-22- 025 INR Coag (PPP) [Relative time] 3.3 {INR} Abnormal 0.8 - 1.2 [facility] Interpretation and review of laboratory results Abnormal [facility] POCT Protime / INRon 02-28- 024 INR Coag (PPP) [Relative time] 2.7 {INR} Abnormal 0.8 - 1.2 [facility] Interpretation and review of laboratory results Abnormal [facility] BASIC METABOLIC PANLon 12-13 -2024 Anion gap [Moles/Vol] 5 mmol/L Normal 5-15 [facility] Comment on above: Performed By: #### C BC, PINR, 14611-1, CMP, 1987-07, HA1C, 56406-2 #### [facility] ([id number]) [address], [address] [place] [address] Calcium [Mass/Vol] 8.6 mg/dL Normal 8.5-10.5 [facility] Comment on above: Performed By: #### C BC, PINR, 52064-0, CMP, 1987-07, HA1C, 41428-7 #### [facility] ([id number]) [address], [address] [place] [address] Chloride [Moles/Vol] 102 mmol/L Normal 98-109 [facility] Comment on above: Performed By: #### C BC, PINR, 62712-3, CMP, 1987-07, HA1C, 46356-2 #### [facility] ([id number]) [address], [address] [place] [address] CO2 [Moles/Vol] 29 mmol/L Normal 22-32 [facility] Comment on above: Performed By: #### C BC, PINR, 03050-2, CMP, 1987-07, HA1C, 94674-7 #### [facility] ([id number]) [address], [address] [place] [address] Creatinine [Mass/Vol] 1.10 mg/dL Normal 0.60-1.30 [facility] Comment on above: Result Comment: METH OD TRACEABLE TO IDMS STANDARD Performed By: #### C BC, PINR, 59159-5, CMP, 1987-07, HA1C, 48876-5 #### [facility] ([id number]) [address], [address] [place] [address] GFR/1.73 sq M.predicted among non-blacks MDRD (S/P/Bld) [Vol rate/Area] 69 mL/min/{1.73_m2} Normal >59 [facility] Comment on above: Result Comment: Reported eGFR is based on the CKD-EPI 2020 equation that does not use a race coefficient. Performed By: #### C BC, PINR, 78981-2, CMP, 1987-07, HA1C, 27257-0 #### [facility] ([id number]) [address], [address] [place] [address] Glucose [Mass/Vol] 117 mg/dL High 65-99 [facility] Comment on above: Performed By: #### C BC, PINR, 90057-8, CMP, 1987-07, HA1C, 62580-4 #### [facility] ([id number]) [address], [address] [place] [address] Potassium [Moles/Vol] 4.0 mmol/L Normal 3.5-5.0 [facility] Comment on above: Performed By: #### C BC, PINR, 02977-4, [facility], 1987-07, HA1C, 87427-1 #### [facility] ([id number]) [address], [address] [place] [address] Sodium [Moles/Vol] 136 mmol/L Normal 134-146 [facility] Comment on above: Performed By: #### C BC, PINR, 60423-5, CMP, 1987-07, HA1C, 22561-7 #### [facility] ([id number]) [address], [address] [place] [address] Urea nitrogen [Mass/Vol] 27 mg/dL Normal 5-27 [facility] Comment on above: Performed By: #### C BC, PINR, 11190-6, CMP, 1987-07, HA1C, 14859-3 #### [facility] ([id number]) [address], [address] [place] [address] COMPLETE BLOOD COUNTon 02-18 Erythrocyte distribution width (RBC) [Ratio] 14.9 % Normal 11.5-15.0 [facility] Comment on above: Performed By: #### C BC, PINR, 38093-6, CMP, 1987-07, HA1C, 82054-8 #### [facility] ([id number]) [address], [address] [place] [address] Hematocrit (Bld) [Volume fraction] 24.8 % Low 39-49 [facility] Comment on above: Performed By: #### C BC, PINR, 64008-6, CMP, 1987-07, HA1C, 01310-6 #### [facility] ([id number]) [address], [address] [place] [address] Hemoglobin (Bld) [Mass/Vol] 8.4 g/dL Low 13.0-17.0 [facility] Comment on above: Performed By: #### Rebecca BC, PINR, 06537-9, CMP, 1987-07, HA1C, 78974-3 #### [facility] ([id number]) [address], [address] [place] [address] MCH (RBC) [Entitic mass] 30.4 pg Normal 27-34 [facility] Comment on above: Performed By: #### Rebecca HAMMER, PINR, 98442-2, CMP, 1987-07, HA1C, 74715-4 #### [facility] ([id number]) [address], [address] [place] [address] MCHC (RBC) [Mass/Vol] 34.0 g/dL Normal 32-36 [facility] Comment on above: Performed By: #### C BC, PINR, 25466-8, CMP, 1987-07, HA1C, 49383-4 #### [facility] ([id number]) [address], [address] [place] [address] MCV (RBC) [Entitic vol] 89 fL Normal 80-100 [facility] Comment on above: Performed By: #### C BC, PINR, 16869-5, CMP, 1987-07, HA1C, 58348-7 #### [facility] ([id number]) [address], [address] [place] [address] Platelet mean volume (Bld) [Entitic vol] 8.8 fL Normal 7-12 [facility] Comment on above: Performed By: #### C BC, PINR, 10245-3, CMP, 1987-07, HA1C, 87709-4 #### [facility] ([id number]) [address], [facility] [address] [place] [address] Platelets (Bld) [#/Vol] 164 10*3/uL Normal 150-450 [facility] Comment on above: Performed By: #### Rebecca BC, PINR, 24891-0, CMP, 1987-07, HA1C, 12293-1 #### [facility] ([id number]) [address], [address] [place] [address] RBC COUNT 2.78 X10E12/L Low 4.10-5.70 [facility] Comment on above: Performed By: #### Rebecca BC, PINR, 25698-9, CMP, 1987-07, HA1C, 16848-3 #### [facility] ([id number]) [address], [facility] [address] [place] [address] WBC (Bld) [#/Vol] 6.5 10*3/uL Normal 4.0-11.0 [facility] Comment on above: Performed By: #### C BC, PINR, 94174-1, CMP, 1987-07, HA1C, 60021-6 #### [facility] ([id number]) [address] [address] [place] [address] Heparin unfractionated Chrom ogenic method Qn (PPP)on 02-19-2024 ANTI XA UFH 0.38 IU/mL Normal 0.30-0.70 [facility] Comment on above: Result Comment: Opti mal time for testing is 6 hrs post dosage This test is specific for monitoring patients on UFH, and is not recommended for use with other Anti-Xa medications. Performed By: #### C JAQUELIN PINR, 55712-9, [facility], 1987-07, [place], 436[address]-0 #### [facility] ([id number]) [address], [address] [place] [address] ANTI XA UFH 0.38 IU/mL Normal 0.30-0.70 [facility] Comment on above: Result Comment: Opti mal time for testing is 6 hrs post dosage This test is specific for monitoring patients on UFH, and is not recommended for use with other Anti-Xa medications. Performed By: #### C JAQUELIN PINR, 15320-4, [facility], 1987-07, [place], 05[address]-8 #### [facility] ([id number]) [address], [address] [place] [address] PROTIME AND INRon 02-19-2024 INR Coag (PPP) [Relative time] 1.2 {INR} High 0.8-1.1 [facility] Comment on above: Performed By: #### C OLGA HAMMER, 54717-1, [facility], 1987-07, [place], [address]-8 #### [facility] ([id number]) [address], [address] [place] [address] PT Coag (PPP) [Time] 13.9 s High 9.8-13.2 [facility] Comment on above: Performed By: #### Rebecca HAMMER, PINR, 68760-5, [facility], 1987-07, [place], 144[address]-1 #### [facility] ([id number]) [address], [address] [place] [address] BASIC METABOLIC PANLon 02-17 Anion gap [Moles/Vol] 6 mmol/L Normal 5-15 [facility] Comment on above: Performed By: #### C JAQUELIN, PINR, 40349-8, CMP, 1987-07, HA1C, 66037-0 #### [facility] ([id number]) [address], [address] [place] [address] Calcium [Mass/Vol] 8.7 mg/dL Normal 8.5-10.5 [facility] Comment on above: Performed By: #### C BC, PINR, 07479-5, CMP, 1987-07, HA1C, 90904-4 #### [facility] ([id number]) [address], [address] [place] [address] Chloride [Moles/Vol] 103 mmol/L Normal 98-109 [facility] Comment on above: Performed By: #### C BC, PINR, 92250-7, CMP, 1987-07, HA1C, 33017-9 #### [facility] ([id number]) [address], [address] [place] [address] CO2 [Moles/Vol] 28 mmol/L Normal 22-32 [facility] Comment on above: Performed By: #### C BC, PINR, 27214-5, CMP, 1987-07, HA1C, 86409-5 #### [facility] ([id number]) [address], [address] [place] [address] Creatinine [Mass/Vol] 1.21 mg/dL Normal 0.60-1.30 [facility] Comment on above: Result Comment: METH OD TRACEABLE TO IDMS STANDARD Performed By: #### C BC, PINR, 21302-0, CMP, 1987-07, HA1C, 02623-5 #### [facility] ([id number]) [address], [address] [place] [address] GFR/1.73 sq M.predicted among non-blacks MDRD (S/P/Bld) [Vol rate/Area] 61 mL/min/{1.73_m2} Normal >59 [facility] Comment on above: Result Comment: Reported eGFR is based on the CKD-EPI 2020 equation that does not use a race coefficient. Performed By: #### C BC, PINR, 32385-7, CMP, 1987-07, HA1C, 98290-6 #### [facility] ([id number]) [address], [address] [place] [address] Glucose [Mass/Vol] 112 mg/dL High 65-99 [facility] Comment on above: Performed By: #### C BC, PINR, 78817-6, CMP, 1987-07, HA1C, 25768-5 #### [facility] ([id number]) [address], [facility] [address] [place] [address] Potassium [Moles/Vol] 4.2 mmol/L Normal 3.5-5.0 [facility] Comment on above: Performed By: #### C BC, PINR, 57996-6, CMP, 1987-07, HA1C, 45797-5 #### [facility] ([id number]) [address], [address] [place] [address] Sodium [Moles/Vol] 137 mmol/L Normal 134-146 [facility] Comment on above: Performed By: #### C BC, PINR, 79285-5, CMP, 1987-07, HA1C, 64913-5 #### [facility] ([id number]) [address], [address] [place] [address] Urea nitrogen [Mass/Vol] 28 mg/dL High 5-27 [facility] Comment on above: Performed By: #### C BC, PINR, 39746-7, CMP, 1987-07, HA1C, 81702-9 #### [facility] ([id number]) [address], [address] [place] [address] COMPLETE BLOOD COUNTon 02-17 Erythrocyte distribution width (RBC) [Ratio] 14.9 % Normal 11.5-15.0 [facility] Comment on above: Performed By: #### C BC, PINR, 61577-7, CMP, 1987-07, HA1C, 83966-2 #### [facility] ([id number]) [address], [address] [place] [address] Hematocrit (Bld) [Volume fraction] 25.6 % Low 39-49 [facility] Comment on above: Performed By: #### C BC, PINR, 72491-8, CMP, 1987-07, HA1C, 86410-4 #### [facility] ([id number]) [address], [address] [place] [address] Hemoglobin (Bld) [Mass/Vol] 8.7 g/dL Low 13.0-17.0 [facility] Comment on above: Performed By: #### C BC, PINR, 44653-7, CMP, 1987-07, HA1C, 06663-3 #### [facility] ([id number]) [address], [address] [place] [address] MCH (RBC) [Entitic mass] 30.5 pg Normal 27-34 [facility] Comment on above: Performed By: #### C BC, PINR, 33110-8, CMP, 1987-07, HA1C, 33624-0 #### [facility] ([id number]) [address], [address] [place] [address] MCHC (RBC) [Mass/Vol] 34.2 g/dL Normal 32-36 [facility] Comment on above: Performed By: #### C BC, PINR, 80611-3, CMP, 1987-07, HA1C, 00472-2 #### [facility] ([id number]) [address], [address] [place] [address] MCV (RBC) [Entitic vol] 89 fL Normal 80-100 [facility] Comment on above: Performed By: #### C BC, PINR, 60716-6, CMP, 1987-07, HA1C, 96882-5 #### [facility] ([id number]) [address], [address] [place] [address] Platelet mean volume (Bld) [Entitic vol] 8.8 fL Normal 7-12 [facility] Comment on above: Performed By: #### C BC, PINR, 67826-2, CMP, 1987-07, HA1C, 99579-5 #### [facility] ([id number]) [address], [address] [place] [address] Platelets (Bld) [#/Vol] 142 10*3/uL Low 150-450 [facility] Comment on above: Performed By: #### Rebecca HAMMER, PINR, 27774-9, CMP, 1987-07, HA1C, 11348-1 #### [facility] ([id number]) [address], [address] [place] [address] RBC COUNT 2.86 X10E12/L Low 4.10-5.70 [facility] Comment on above: Performed By: #### Rebecca HAMMER, PINR, 43920-1, [facility], 1987-07, HA1C, 11127-3 #### [facility] ([id number]) [address], [address] [place] [address] WBC (Bld) [#/Vol] 8.0 10*3/uL Normal 4.0-11.0 [facility] Comment on above: Performed By: #### Rebecca BC, PINR, 98982-4, CMP, 1987-07, HA1C, 20993-6 #### [facility] ([id number]) [address] [address] [place] [address] Heparin unfractionated Chrom ogenic method Qn (PPP)on 02-18-2024 ANTI XA UFH 0.27 IU/mL Low 0.30-0.70 [facility] Comment on above: Result Comment: Opti mal time for testing is 6 hrs post dosage This test is specific for monitoring patients on UFH, and is not recommended for use with other Anti-Xa medications. Performed By: #### C BC, PINR, 81755-4, CMP, 1987-07, HA1C, 69235-8 #### [facility] ([id number]) [address], [address] [place] [address] PROTIME AND INRon 02-18-2024 INR Coag (PPP) [Relative time] 1.2 {INR} High 0.8-1.1 [facility] Comment on above: Performed By: #### C BC, PINR, 31680-5, CMP, 1987-07, HA1C, 22495-4 #### [facility] ([id number]) [address], [address] [place] [address] PT Coag (PPP) [Time] 14.2 s High 9.8-13.2 [facility] Comment on above: Performed By: #### C BC, PINR, 19326-7, CMP, 1987-07, HA1C, 61735-4 #### [facility] ([id number]) [address], [address] [place] [address] aPTT Coag (PPP) [Time]on aPTT Coag (Bld) [Time] 29 s Normal 26-37 [facility] Comment on above: Performed By: #### C BC, PINR, 13997-1, CMP, 1987-07, HA1C, 87581-2 #### [facility] ([id number]) [address], [address] [place] [address] BASIC METABOLIC PANLon 02-16 Anion gap [Moles/Vol] 7 mmol/L Normal 5-15 [facility] Comment on above: Performed By: #### C BC, PINR, 85827-0, CMP, 1987-07, HA1C, 77741-7 #### [facility] ([id number]) [address] [place] [address] Calcium [Mass/Vol] 9.0 mg/dL Normal 8.5-10.5 [facility] Comment on above: Performed By: #### C BC, PINR, 52881-9, CMP, 1987-07, HA1C, 34135-5 #### [facility] ([id number]) [address], [address] [place] [address] Chloride [Moles/Vol] 103 mmol/L Normal 98-109 [facility] Comment on above: Performed By: #### C BC, PINR, 40218-9, CMP, 1987-07, HA1C, 62786-5 #### [facility] ([id number]) [address], [facility] [address] [place] [address] CO2 [Moles/Vol] 27 mmol/L Normal 22-32 [facility] Comment on above: Performed By: #### C BC, PINR, 51020-5, CMP, 1987-07, HA1C, 26506-8 #### [facility] ([id number]) [address], [address] [place] [address] Creatinine [Mass/Vol] 1.41 mg/dL High 0.60-1.30 [facility] Comment on above: Result Comment: METH OD TRACEABLE TO IDMS STANDARD Performed By: #### C BC, PINR, 34066-4, CMP, 1987-07, HA1C, 33678-2 #### [facility] ([id number]) [address], [address] [place] [address] GFR/1.73 sq M.predicted among non-blacks MDRD (S/P/Bld) [Vol rate/Area] 51 mL/min/{1.73_m2} Low >59 [facility] Comment on above: Result Comment: Reported eGFR is based on the CKD-EPI 2020 equation that does not use a race coefficient. Performed By: #### C BC, PINR, 59930-6, CMP, 1987-07, HA1C, 58508-9 #### [facility] ([id number]) [address], [address] [place] [address] Glucose [Mass/Vol] 119 mg/dL High 65-99 [facility] Comment on above: Performed By: #### C BC, PINR, 56085-3, CMP, 1987-07, HA1C, 68718-7 #### [facility] ([id number]) [address], [address] [place] [address] Potassium [Moles/Vol] 4.0 mmol/L Normal 3.5-5.0 [facility] Comment on above: Performed By: #### C BC, PINR, 32970-6, CMP, 1987-07, HA1C, 71157-4 #### [facility] ([id number]) [address], [address] [place] [address] Sodium [Moles/Vol] 137 mmol/L Normal 134-146 [facility] Comment on above: Performed By: #### Rebecca BC, PINR, 97970-0, CMP, 1987-07, HA1C, 66247-0 #### [facility] ([id number]) [address], [address] [place] [address] Urea nitrogen [Mass/Vol] 34 mg/dL High 5-27 [facility] Comment on above: Performed By: #### Rebecca BC, PINR, 15194-1, CMP, 1987-07, HA1C, 53540-7 #### [facility] ([id number]) [address], [address] [place] [address] COMPLETE BLOOD COUNTon 02-16 Erythrocyte distribution width (RBC) [Ratio] 14.9 % Normal 11.5-15.0 [facility] Comment on above: Performed By: #### C BC, PINR, 37028-1, CMP, 1987-07, HA1C, 62462-9 #### [facility] ([id number]) [address], [address] [place] [address] Hematocrit (Bld) [Volume fraction] 27.2 % Low 39-49 [facility] Comment on above: Performed By: #### C BC, PINR, 55382-4, CMP, 1987-07, HA1C, 61235-8 #### [facility] ([id number]) [address], [address] [place] [address] Hemoglobin (Bld) [Mass/Vol] 9.2 g/dL Low 13.0-17.0 [facility] Comment on above: Performed By: #### C BC, PINR, 21038-9, CMP, 1987-07, HA1C, 13230-1 #### [facility] ([id number]) [address], [address] [place] [address] MCH (RBC) [Entitic mass] 30.4 pg Normal 27-34 [facility] Comment on above: Performed By: #### Rebecca BC, PINR, 78922-2, CMP, 1987-07, HA1C, 60466-5 #### [facility] ([id number]) [address], [address] [place] [address] MCHC (RBC) [Mass/Vol] 33.9 g/dL Normal 32-36 [facility] Comment on above: Performed By: #### Rebecca BC, PINR, 76129-4, CMP, 1987-07, HA1C, 36002-4 #### [facility] ([id number]) [address], [address] [place] [address] MCV (RBC) [Entitic vol] 90 fL Normal 80-100 [facility] Comment on above: Performed By: #### C BC, PINR, 34401-9, CMP, 1987-07, HA1C, 32752-6 #### [facility] ([id number]) [address], [address] [place] [address] Platelet mean volume (Bld) [Entitic vol] 9.1 fL Normal 7-12 [facility] Comment on above: Performed By: #### C BC, PINR, 11908-6, CMP, 1987-07, HA1C, 69306-6 #### [facility] ([id number]) [address], [address] [place] [address] Platelets (Bld) [#/Vol] 137 10*3/uL Low 150-450 [facility] Comment on above: Performed By: #### C BC, PINR, 59979-2, CMP, 1987-07, HA1C, 00881-1 #### [facility] ([id number]) [address], [address] [place] [address] RBC COUNT 3.03 X10E12/L Low 4.10-5.70 [facility] Comment on above: Performed By: #### C JAQUELIN, PINR, 12951-9, CMP, 1987-07, HA1C, 43721-2 #### [facility] ([id number]) [address], [address] [place] [address] WBC (Bld) [#/Vol] 11.4 10*3/uL High 4.0-11.0 [facility] Comment on above: Performed By: #### C JAQUELIN, PINR, 78688-3, [facility], 1987-07, HA1C, 78323-0 #### [facility] ([id number]) [address], [address] [place] [address] Glucose Glucometer (BldC) [M ass/Vol]on 02-17-2024 Glucose [Mass/Vol] 114 mg/dL High 65-99 [facility] PROTIME AND INRon 02-17-2024 INR Coag (PPP) [Relative time] 1.1 {INR} Normal 0.8-1.1 [facility] Comment on above: Performed By: #### C BC, PINR, 25851-1, CMP, 1987-07, HA1C, 34812-3 #### [facility] ([id number]) [address], [address] [place] [address] PT Coag (PPP) [Time] 13.3 s High 9.8-13.2 [facility] Comment on above: Performed By: #### C JAQUELIN, PINR, 50564-9, CMP, 1987-07, HA1C, 44404-2 #### [facility] ([id number]) [address], [address] [place] [address] XR CHEST 1 VWon 02-17-2024 XR CHEST 1 VW XR CHEST 1 VW HISTORY: Congestion, atelectasis COMPARISON: Chest x-ray 02/16/2024 FINDINGS: Portable AP upright view of the chest was performed during expiration. Right jugular venous catheter is in stable position. 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 Cardiac silhouette is unchanged. Improved congestion and edema. Improved left basilar airspace disease. Trace left pleural effusion. No pneumothorax. IMPRESSION: * Improving vascular congestion and edema with interval reduction in left basilar airspace disease. Finalized by Herbie Wells MD on 02/17/2024 8:10 AM Normal [facility] BASIC METABOLIC PANLon 02-15 Anion gap [Moles/Vol] 11 mmol/L Normal 5-15 [facility] Comment on above: Performed By: #### C JAQUELIN PINR, 86217-5, CMP, 1987-07, HA1C, 36271-4 #### [facility] ([id number]) [address], [address] [place] [address] Calcium [Mass/Vol] 9.1 mg/dL Normal 8.5-10.5 [facility] Comment on above: Performed By: #### C JAQUELIN, PINR, 25617-4, CMP, 1987-07, HA1C, 19814-0 #### [facility] ([id number]) [address], [address] [place] [address] Chloride [Moles/Vol] 107 mmol/L Normal 98-109 [facility] Comment on above: Performed By: #### C JAQUELIN, PINR, 89286-0, CMP, 1987-07, HA1C, 94656-1 #### [facility] ([id number]) [address], [address] [place] [address] CO2 [Moles/Vol] 22 mmol/L Normal 22-32 [facility] Comment on above: Performed By: #### C BC, PINR, 80527-8, CMP, 1987-07, HA1C, 99292-3 #### [facility] ([id number]) [address], [address] [place] [address] Creatinine [Mass/Vol] 1.27 mg/dL Normal 0.60-1.30 [facility] Comment on above: Result Comment: METH OD TRACEABLE TO IDMS STANDARD Performed By: #### C BC, PINR, 12891-3, [facility], 1987-07, HA1C, 88495-1 #### [facility] ([id number]) [address], [address] [address] GFR/1.73 sq M.predicted among non-blacks MDRD (S/P/Bld) [Vol rate/Area] 58 mL/min/{1.73_m2} Low >59 [facility] Comment on above: Result Comment: Reported eGFR is based on the CKD-EPI 2020 equation that does not use a race coefficient. Performed By: #### C BC, PINR, 80857-7, [facility], 1987-07, HA1C, 04341-3 #### [facility] ([id number]) [address], [address] [place] [address] Glucose [Mass/Vol] 129 mg/dL High 65-99 [facility] Comment on above: Performed By: #### C BC, PINR, 43367-8, CMP, 1987-07, HA1C, 72127-1 #### [facility] ([id number]) [address], [address] [place] [address] Potassium [Moles/Vol] 4.3 mmol/L Normal 3.5-5.0 [facility] Comment on above: Performed By: #### C BC, PINR, 76467-8, CMP, 1987-07, HA1C, 29369-9 #### [facility] ([id number]) [address], [address] [place] [address] Sodium [Moles/Vol] 140 mmol/L Normal 134-146 [facility] Comment on above: Performed By: #### C BC, PINR, 97011-2, CMP, 1987-07, HA1C, 30279-4 #### [facility] ([id number]) [address], [facility] [address] [place] [address] Urea nitrogen [Mass/Vol] 25 mg/dL Normal 5-27 [facility] Comment on above: Performed By: #### C BC, PINR, 83696-1, CMP, 1987-07, HA1C, 20801-2 #### [facility] ([id number]) [address], [address] [place] [address] COMPLETE BLOOD COUNTon 02-15 Erythrocyte distribution width (RBC) [Ratio] 14.4 % Normal 11.5-15.0 [facility] Comment on above: Performed By: #### C BC, PINR, 56485-2, CMP, 1987-07, HA1C, 05210-1 #### [facility] ([id number]) [address], [address] [place] [address] Hematocrit (Bld) [Volume fraction] 30.2 % Low 39-49 [facility] Comment on above: Performed By: #### C BC, PINR, 37367-9, CMP, 1987-07, HA1C, 52835-8 #### [facility] ([id number]) [address], [address] [place] [address] Hemoglobin (Bld) [Mass/Vol] 10.3 g/dL Low 13.0-17.0 [facility] Comment on above: Performed By: #### C BC, PINR, 41359-3, CMP, 1987-07, HA1C, 11945-2 #### [facility] ([id number]) [address], [address] [place] [address] MCH (RBC) [Entitic mass] 30.6 pg Normal 27-34 [facility] Comment on above: Performed By: #### C BC, PINR, 97435-4, CMP, 1987-07, HA1C, 38215-2 #### [facility] ([id number]) [address], [address] [place] [address] MCHC (RBC) [Mass/Vol] 34.2 g/dL Normal 32-36 [facility] Comment on above: Performed By: #### Rebecca BC, PINR, 15783-1, CMP, 1987-07, HA1C, 89820-7 #### [facility] ([id number]) [address], [address] [place] [address] MCV (RBC) [Entitic vol] 89 fL Normal 80-100 [facility] Comment on above: Performed By: #### Rebecca BC, PINR, 64719-0, CMP, 1987-07, HA1C, 13394-4 #### [facility] ([id number]) [address], [address] [place] [address] Platelet mean volume (Bld) [Entitic vol] 9.0 fL Normal 7-12 [facility] Comment on above: Performed By: #### C BC, PINR, 64037-5, CMP, 1987-07, HA1C, 27260-5 #### [facility] ([id number]) [address] [address] [place] [address] Platelets (Bld) [#/Vol] 163 10*3/uL Normal 150-450 [facility] Comment on above: Performed By: #### Rebecca BC, PINR, 87627-5, CMP, 1987-07, HA1C, 01730-9 #### [facility] ([id number]) [address], [address] [place] [address] RBC COUNT 3.38 X10E12/L Low 4.10-5.70 [facility] Comment on above: Performed By: #### Rebecca HAMMER, PINR, 95326-4, [facility], 1987-07, [place], 73996-7 #### [facility] ([id number]) [address], [address] [place] [address] WBC (Bld) [#/Vol] 12.3 10*3/uL High 4.0-11.0 [facility] Comment on above: Performed By: #### Rebecca BC, PINR, 82507-6, [facility], 1987-07, [facility], 26607-9 #### [facility] ([id number]) [address], [address] [place] [address] Calcium.ionized (Bld) [Mass/ Vol]on 02-16-2024 IONIZED CALCIUM 4.9 mg/dL Normal 4.5-5.3 [facility] Comment on above: Performed By: #### Rebecca BC, PINR, 72600-8, [facility], 1987-07, [facility], 45123-5 #### [facility] ([id number]) [address], [address] [place] [address] Glucose Glucometer (BldC) [M ass/Vol]on 02-16-2024 Glucose [Mass/Vol] 194 mg/dL High 65-99 [facility] Glucose [Mass/Vol] 123 mg/dL High 65-99 [facility] Glucose [Mass/Vol] 115 mg/dL High 65-99 [facility] Glucose [Mass/Vol] 132 mg/dL High 65-99 [facility] Glucose [Mass/Vol] 132 mg/dL High 65-99 [facility] Magnesium Ionized ISE (Bld) [Moles/Vol]on 02-16-2024 Magnesium [Moles/Vol] 0.61 mmol/L Normal 0.45-0.74 [facility] Comment on above: Result Comment: NEW REFERENCE RANGE Performed By: #### C BC, PINR, 38656-2, CMP, 1987-07, HA1C, 53430-7 #### [facility] ([id number]) [address], [address] [place] [address] PHOSPHORUSon 02-16-2024 Phosphate [Mass/Vol] 4.9 mg/dL Normal 2.4-4.9 [facility] Comment on above: Performed By: #### C BC, PINR, 51602-8, CMP, 1987-07, HA1C, 09729-6 #### [facility] ([id number]) [address], [address] [place] [address] PROTIME AND INRon 02-16-2024 INR Coag (PPP) [Relative time] 1.1 {INR} Normal 0.8-1.1 [facility] Comment on above: Performed By: #### C BC, PINR, 35527-5, CMP, 1987-07, HA1C, 06318-9 #### [facility] ([id number]) [address], [address] [place] [address] PT Coag (PPP) [Time] 12.9 s Normal 9.8-13.2 [facility] Comment on above: Performed By: #### C BC, PINR, 96489-4, [facility], 1987-07, [place], 47734-7 #### [facility] ([id number]) [address] [place] [address] XR CHEST 1 VWon 02-16-2024 XR CHEST 1 VW XR CHEST 1 VW Clinical history: Heart surgery Views: 1 Comparison: 02/15/2024 Findings/Impression: 1. Central line overlies SVC. Heart size prominent. Vasculature stable. Small effusions. No volume loss or consolidation. 2. 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 3. In summary, Persistent cardiomegaly overall, there is slightly increased vascular congestion compared to the previous exam. Finalized by Mc Denson MD on 02/16/2024 6:32 AM Normal [facility] ABG RAPID K GLU HHon 024 KLEBER'S TEST Normal [facility] Comment on above: Performed By: #### C BC, PINR, 27406-7, CMP, 1987-07, HA1C, 50124-7 #### [facility] ([id number]) [address], [address] [place] [address] BASE,DEFICIT 1.3 MMOL/L Normal 0.0-2.0 [facility] Comment on above: Performed By: #### C BC, PINR, 50997-7, CMP, 1987-07, HA1C, 83701-7 #### [facility] ([id number]) [address], [address] [place] [address] Body temperature 98.6 [degF] Normal 37.0 [facility] Comment on above: Performed By: #### C BC, PINR, 56709-0, CMP, 1987-07, HA1C, 07014-0 #### [facility] ([id number]) [address], [address] [place] [address] Glucose [Mass/Vol] 134 mg/dL High 65-99 [facility] Comment on above: Performed By: #### C BC, PINR, 98360-5, CMP, 1987-07, HA1C, 54413-9 #### [facility] ([id number]) [address], [address] [place] [address] HCO3 (Bld) [Moles/Vol] 23.9 mmol/L Normal 22-26 [facility] Comment on above: Performed By: #### C BC, PINR, 51009-8, CMP, 1987-07, HA1C, 01878-7 #### [facility] ([id number]) [address], [address] [place] [address] Hematocrit (Bld) [Volume fraction] 29 % Low 39-49 [facility] Comment on above: Performed By: #### C JAQUELIN, PINR, 41068-3, CMP, 1987-07, HA1C, 56774-4 #### [facility] ([id number]) [address], [address] [place] [address] Hemoglobin (Bld) [Mass/Vol] 9.3 g/dL Low 13.0-17.0 [facility] Comment on above: Performed By: #### C JAQUELIN, PINR, 60039-2, CMP, 1987-07, HA1C, 05097-4 #### [facility] ([id number]) [address], [address] [place] [address] INSP. O2 CONC. 100 % Normal [facility] Comment on above: Performed By: #### Rebecca HAMMER, PINR, 28812-7, CMP, 1987-07, HA1C, 92649-6 #### [facility] ([id number]) [address], [address] [place] [address] Oxygen (Bld) [Partial pressure] 299 mm[Hg] High 80-100 [facility] Comment on above: Performed By: #### Rebecca HAMMER, PINR, 55921-7, CMP, 1987-07, HA1C, 07903-1 #### [facility] ([id number]) [address], [address] [place] [address] Oxygen saturation in Blood 100.2 % Normal >90 [facility] Comment on above: Performed By: #### C JAQUELIN, PINR, 22094-1, CMP, 1987-07, HA1C, 44154-3 #### [facility] ([id number]) [address], [address] [place] [address] PCO2 41.0 MMHG Normal 35-45 [facility] Comment on above: Performed By: #### C BC, PINR, 69321-6, CMP, 1987-07, HA1C, 62874-5 #### [facility] ([id number]) [address], [address] [place] [address] pH (Bld) 7.374 [pH] Normal 7.350-7.45 0 [facility] Comment on above: Performed By: #### C BC, PINR, 75954-8, CMP, 1987-07, HA1C, 12765-9 #### [facility] ([id number]) [address], [address] [place] [address] Potassium [Moles/Vol] 4.7 mmol/L Normal 3.5-5.0 [facility] Comment on above: Performed By: #### C BC, PINR, 38220-9, CMP, 1987-07, HA1C, 95136-9 #### [facility] ([id number]) [address], [address] [place] [address] SAMPLE SITE HARINI Normal [facility] Comment on above: Performed By: #### C BC, PINR, 07587-4, CMP, 1987-07, HA1C, 19648-1 #### [facility] ([id number]) [address], [address] [place] [address] SAMPLE TYPE Arterial Normal [facility] Comment on above: Performed By: #### C BC, PINR, 57963-2, CMP, 1987-07, HA1C, 59267-6 #### [facility] ([id number]) [address], [address] [place] [address] KLEBER'S TEST Normal [facility] Comment on above: Performed By: #### H RTN #### [facility] ([id number]) [address] [place] [address] BASE,DEFICIT 0.3 MMOL/L Normal 0.0-2.0 [facility] Comment on above: Performed By: #### H RTN #### [facility] ([id number]) [address] [place] [address] Body temperature 98.6 [degF] Normal 37.0 [facility] Comment on above: Performed By: #### H RTN #### [facility] ([id number]) [address] [place] [address] Glucose [Mass/Vol] 126 mg/dL High 65-99 [facility] Comment on above: Performed By: #### H RTN #### [facility] ([id number]) [address] [place] [address] HCO3 (Bld) [Moles/Vol] 24.1 mmol/L Normal 22-26 [facility] Comment on above: Performed By: #### H RTN #### [facility] ([id number]) [address] [place] [address] Hematocrit (Bld) [Volume fraction] 28 % Low 39-49 [facility] Comment on above: Performed By: #### H RTN #### [facility] ([id number]) [address] [place] [address] Hemoglobin (Bld) [Mass/Vol] 9.2 g/dL Low 13.0-17.0 [facility] Comment on above: Performed By: #### H RTN #### [facility] ([id number]) [address] [place] [address] INSP. O2 CONC. 100 % Normal [facility] Comment on above: Performed By: #### H RTN #### [facility] ([id number]) [address] [place] [address] Oxygen (Bld) [Partial pressure] 370 mm[Hg] High 80-100 [facility] Comment on above: Performed By: #### H RTN #### [facility] ([id number]) [address] [place] [address] Oxygen saturation in Blood 100.3 % Normal >90 [facility] Comment on above: Performed By: #### H RTN #### [facility] ([id number]) [address] [place] [address] PCO2 36.4 MMHG Normal 35-45 [facility] Comment on above: Performed By: #### H RTN #### [facility] ([id number]) [address] [place] [address] pH (Bld) 7.428 [pH] Normal 7.350-7.45 0 [facility] Comment on above: Performed By: #### H RTN #### [facility] ([id number]) [address] [place] [address] Potassium [Moles/Vol] 4.6 mmol/L Normal 3.5-5.0 [facility] Comment on above: Performed By: #### H RTN #### [facility] ([id number]) [address] [place] [address] SAMPLE SITE HARINI Normal [facility] Comment on above: Performed By: #### H RTN #### [facility] ([id number]) [address] [place] [address] SAMPLE TYPE Arterial Normal [facility] Comment on above: Performed By: #### H RTN #### [facility] ([id number]) [address] [place] [address] ARTERIAL BLOOD GASon 024 KLEBER'S TEST Normal [facility] Comment on above: Performed By: #### C BC, PINR, [id number], CMP, 1988-5, HA1C, 33380-6 #### [facility] ([id number]) [address], [address] [place] [address] BASE,DEFICIT 2.4 MMOL/L High 0.0-2.0 [facility] Comment on above: Performed By: #### C BC, PINR, [id number], CMP, 1987-07, HA1C, 03042-4 #### [facility] ([id number]) [address], [address] [place] [address] Body temperature 98.6 [degF] Normal 37.0 [facility] Comment on above: Performed By: #### C BC, PINR, [id number], CMP, 1987-07, HA1C, 36041-0 #### [facility] ([id number]) [address], [address] [place] [address] HCO3 (Bld) [Moles/Vol] 22.4 mmol/L Normal 22-26 [facility] Comment on above: Performed By: #### Rebecca HAMMER, PINR, [id number], CMP, 1987-07, HA1C, 16885-9 #### [facility] ([id number]) [address], [address] [place] [address] INSP. O2 CONC. 100 % Normal [facility] Comment on above: Performed By: #### Rebecca BC, PINR, [id number], CMP, 1987-07, HA1C, 11798-6 #### [facility] ([id number]) [address], [address] [place] [address] Oxygen (Bld) [Partial pressure] 396 mm[Hg] High 80-100 [facility] Comment on above: Performed By: #### Rebecca BC, PINR, [id number], CMP, 1987-07, HA1C, 32549-1 #### [facility] ([id number]) [address], [address] [place] [address] Oxygen saturation in Blood 100.6 % Normal >90 [facility] Comment on above: Performed By: #### Rebecca BC, PINR, 62542-5, CMP, 1987-07, HA1C, 66225-7 #### [facility] [facility] ([id number]) [address], [address] [place] [address] PCO2 36.2 MMHG Normal 35-45 [facility] Comment on above: Performed By: #### C BC, PINR, 84994-1, CMP, 1987-07, HA1C, 35637-1 #### [facility] ([id number]) [address], [address] [place] [address] pH (Bld) 7.400 [pH] Normal 7.350-7.45 0 [facility] Comment on above: Performed By: #### C BC, PINR, 22144-4, CMP, 1987-07, HA1C, 86894-8 #### [facility] ([id number]) [address], [address] [place] [address] SAMPLE SITE HARINI Normal [facility] Comment on above: Performed By: #### C BC, PINR, 63483-3, CMP, 1987-07, HA1C, 96146-9 #### [facility] ([id number]) [address], [address] [place] [address] SAMPLE TYPE Arterial Normal [facility] Comment on above: Performed By: #### C JAQUELIN, PINR, 08245-3, CMP, 1987-07, HA1C, 05435-9 #### [facility] ([id number]) [address], [address] [place] [address] BLOOD UREA NITROGENon 2023 Urea nitrogen [Mass/Vol] 15 mg/dL Normal 5-27 [facility] Comment on above: Performed By: #### C BC, PINR, 32918-5, CMP, 1987-07, HA1C, 04535-0 #### [facility] ([id number]) [address], [address] [place] [address] Urea nitrogen [Mass/Vol] 19 mg/dL Normal 5-27 [facility] Comment on above: Performed By: #### C BC, PINR, 66825-7, CMP, 1987-07, HA1C, 07110-4 #### [facility] ([id number]) [address] [address] CREATININEon 02-15-2024 Creatinine [Mass/Vol] 1.28 mg/dL Normal 0.60-1.30 [facility] Comment on above: Result Comment: METH OD TRACEABLE TO IDMS STANDARD Performed By: #### C BC, PINR, 62776-3, CMP, 1987-07, HA1C, 23917-7 #### [facility] ([id number]) [address] [address] GFR/1.73 sq M.predicted among non-blacks MDRD (S/P/Bld) [Vol rate/Area] 57 mL/min/{1.73_m2} Low >59 [facility] Comment on above: Result Comment: Reported eGFR is based on the CKD-EPI 2020 equation that does not use a race coefficient. Performed By: #### C BC, PINR, 90837-0, CMP, 1987-07, HA1C, 48156-2 #### [facility] ([id number]) [address] [address] Creatinine [Mass/Vol] 1.01 mg/dL Normal 0.60-1.30 [facility] Comment on above: Result Comment: METH OD TRACEABLE TO IDMS STANDARD Performed By: #### C BC, PINR, 54721-2, CMP, 1987-07, HA1C, 26089-5 #### [facility] ([id number]) [address] [address] GFR/1.73 sq M.predicted among non-blacks MDRD (S/P/Bld) [Vol rate/Area] 76 mL/min/{1.73_m2} Normal >59 [facility] Comment on above: Result Comment: Reported eGFR is based on the CKD-EPI 1 equation that does not use a race coefficient. Performed By: #### C BC, PINR, 90791-6, CMP, 1987-07, HA1C, 00201-2 #### [facility] ([id number]) [address], [address] [place] [address] Calcium.ionized (Bld) [Mass/ Vol]on 02-15-2024 IONIZED CALCIUM 4.7 mg/dL Normal 4.5-5.3 [facility] Comment on above: Performed By: #### C BC, PINR, 54491-4, CMP, 1987-07, HA1C, 90627-3 #### [facility] ([id number]) [address], [address] [place] [address] IONIZED CALCIUM 5.0 mg/dL Normal 4.5-5.3 [facility] Comment on above: Performed By: #### C BC, PINR, 97157-8, [facility], 1987-07, HA1C, 83035-4 #### [facility] ([id number]) [address], [address] [place] [address] Glucose Glucometer (BldC) [M ass/Vol]on 02-15-2024 Glucose [Mass/Vol] 125 mg/dL High 65-99 [facility] Glucose [Mass/Vol] 131 mg/dL High 65-99 [facility] Glucose [Mass/Vol] 124 mg/dL High 65-99 [facility] HGB AND HCTon 02-15-2024 Hematocrit (Bld) [Volume fraction] 38.8 % Low 39-49 [facility] Comment on above: Performed By: #### C BC, PINR, 76867-7, CMP, 1987-07, HA1C, 79897-3 #### [facility] ([id number]) [address], [address] [place] [address] Hemoglobin (Bld) [Mass/Vol] 13.6 g/dL Normal 13.0-17.0 [facility] Comment on above: Performed By: #### C BC, PINR, 57289-3, [facility], 1987-07, HA1C, 10173-8 #### [facility] ([id number]) [address], [address] [place] [address] Hematocrit (Bld) [Volume fraction] 28.9 % Low 39-49 [facility] Comment on above: Performed By: #### C JAQUELIN, PINR, 01923-2, [facility], 1987-07, HA1C, 06045-4 #### [facility] ([id number]) [address], [address] [place] [address] Hemoglobin (Bld) [Mass/Vol] 10.0 g/dL Low 13.0-17.0 [facility] Comment on above: Performed By: #### C JAQUELIN, PINR, 94059-3, CMP, 1987-07, HA1C, 07227-7 #### [facility] ([id number]) [address] [place] [address] Magnesium Ionized ISE (Bld) [Moles/Vol]on 02-15-2024 Magnesium [Moles/Vol] 0.73 mmol/L Normal 0.45-0.74 [facility] Comment on above: Result Comment: NEW REFERENCE RANGE Performed By: #### C JAQUELIN, PINR, 50368-1, [facility], 1987-07, HA1C, 49607-8 #### [facility] ([id number]) [address], [address] [place] [address] Magnesium [Moles/Vol] 0.74 mmol/L Normal 0.45-0.74 [facility] Comment on above: Result Comment: NEW REFERENCE RANGE Performed By: #### C BC, PINR, 29090-7, CMP, 1987-07, HA1C, 02847-3 #### [facility] ([id number]) [address], [address] [place] [address] Magnesium [Moles/Vol] 0.44 mmol/L Low 0.45-0.60 [facility] Comment on above: Performed By: #### C BC, PINR, 46920-2, CMP, 1987-07, HA1C, 20342-6 #### [facility] ([id number]) [address], [address] [place] [address] PLATELET COUNT AND MPVon Platelet mean volume (Bld) [Entitic vol] 8.3 fL Normal 7-12 [facility] Comment on above: Performed By: #### C BC, PINR, 95926-5, CMP, 1987-07, HA1C, 18617-2 #### [facility] ([id number]) [address], [address] [place] [address] Platelets (Bld) [#/Vol] 137 10*3/uL Low 150-450 [facility] Comment on above: Performed By: #### Rebecca BC, PINR, 43721-2, CMP, 1987-07, HA1C, 18545-6 #### [facility] ([id number]) [address], [address] [place] [address] POTASSIUMon 02-15-2024 Potassium [Moles/Vol] 4.5 mmol/L Normal 3.5-5.0 [facility] Comment on above: Performed By: #### Rebecca BC, PINR, 35468-2, CMP, 1987-07, HA1C, 75269-6 #### [facility] ([id number]) [address], [address] [place] [address] Potassium [Moles/Vol] 4.6 mmol/L Normal 3.5-5.0 [facility] Comment on above: Performed By: #### Rebecca BC, PINR, 27726-1, CMP, 1987-07, HA1C, 64507-1 #### [facility] ([id number]) [address], [address] [place] [address] PROTIME AND INRon 12-09-2024 INR Coag (PPP) [Relative time] 1.3 {INR} High 0.8-1.1 [facility] Comment on above: Performed By: #### C BC, PINR, 32761-9, CMP, 1987-07, HA1C, 55408-9 #### [facility] ([id number]) [address], [address] [place] [address] PT Coag (PPP) [Time] 15.2 s High 9.8-13.2 [facility] Comment on above: Performed By: #### C JAQUELIN, PINR, 05728-8, [facility], 1987-07, HA1C, 56741-4 #### [facility] ([id number]) [address], [address] [place] [address] RAPID CARDIACon 02-15-2024 KLEBER'S TEST Normal [facility] Comment on above: Performed By: #### Rebecca BC, PINR, 77978-4, CMP, 1987-07, HA1C, 36457-8 #### [facility] ([id number]) [address], [address] [place] [address] BASE,DEFICIT 3.1 MMOL/L High 0.0-2.0 [facility] Comment on above: Performed By: #### Rebecca HAMMER, PINR, 28674-9, CMP, 1987-07, HA1C, 89158-7 #### [facility] ([id number]) [address], [address] [place] [address] Body temperature 98.6 [degF] Normal 37.0 [facility] Comment on above: Performed By: #### C BC, PINR, 13109-4, CMP, 1987-07, HA1C, 24284-8 #### [facility] ([id number]) [address], [address] [place] [address] Glucose [Mass/Vol] 137 mg/dL High 65-99 [facility] Comment on above: Performed By: #### C BC, PINR, 22841-8, CMP, 1987-07, HA1C, 02091-6 #### [facility] ([id number]) [address], [address] [place] [address] HCO3 (Bld) [Moles/Vol] 21.9 mmol/L Low 22-26 [facility] Comment on above: Performed By: #### C BC, PINR, 66407-1, CMP, 1987-07, HA1C, 33720-7 #### [facility] ([id number]) [address], [address] [place] [address] Hematocrit (Bld) [Volume fraction] 29 % Low 39-49 [facility] Comment on above: Performed By: #### C BC, PINR, 30994-1, CMP, 1987-07, HA1C, 86904-9 #### [facility] ([id number]) [address], [address] [place] [address] Hemoglobin (Bld) [Mass/Vol] 9.5 g/dL Low 13.0-17.0 [facility] Comment on above: Performed By: #### C BC, PINR, 02522-4, CMP, 1987-07, HA1C, 77183-8 #### [facility] ([id number]) [address], [address] [place] [address] INSP. O2 CONC. 100 % Normal [facility] Comment on above: Performed By: #### C BC, PINR, 83176-0, CMP, 1987-07, HA1C, 88225-4 #### [facility] ([id number]) [address], [address] [place] [address] IONIZED CALCIUM 5.3 mg/dL Normal 4.5-5.3 [facility] Comment on above: Performed By: #### C BC, PINR, 96487-0, CMP, 1987-07, HA1C, 76106-9 #### [facility] ([id number]) [address], [address] [place] [address] Oxygen (Bld) [Partial pressure] 235 mm[Hg] High 80-100 [facility] Comment on above: Performed By: #### C JAQUELIN, PINR, 87424-5, CMP, 1987-07, HA1C, 77536-6 #### [facility] ([id number]) [address], [address] [place] [address] Oxygen saturation in Blood 100.0 % Normal >90 [facility] Comment on above: Performed By: #### C JAQUELIN, PINR, 40858-8, CMP, 1987-07, HA1C, 04785-8 #### [facility] ([id number]) [address], [address] [place] [address] PCO2 36.3 MMHG Normal 35-45 [facility] Comment on above: Performed By: #### C JAQUELIN, PINR, 22807-2, CMP, 1987-07, HA1C, 33404-5 #### [facility] ([id number]) [address] [place] [address] pH (Bld) 7.389 [pH] Normal 7.350-7.45 0 [facility] Comment on above: Performed By: #### C JAQUELIN, PINR, 12728-0, CMP, 1987-07, HA1C, 07341-9 #### [facility] ([id number]) [address] [place] [address] Potassium [Moles/Vol] 4.6 mmol/L Normal 3.5-5.0 [facility] Comment on above: Performed By: #### C BC, PINR, 19495-3, CMP, 1987-07, HA1C, 57640-3 #### [facility] ([id number]) [address] [place] [address] SAMPLE SITE HARINI Normal [facility] Comment on above: Performed By: #### C JAQUELIN, PINR, 24243-7, CMP, 1987-07, HA1C, 07128-6 #### [facility] ([id number]) [address], [address] [place] [address] SAMPLE TYPE Arterial Normal [facility] Comment on above: Performed By: #### C BC, PINR, 33945-1, CMP, 1987-07, HA1C, 80313-5 #### [facility] ([id number]) [address] [facility] [facility] [place] [address] KLEBER'S TEST Normal [facility] Comment on above: Performed By: #### A FAB5 #### [facility] ([id number]) [address] [place] [address] BASE,DEFICIT 0.9 MMOL/L Normal 0.0-2.0 [facility] Comment on above: Performed By: #### A FAB5 #### [facility] ([id number]) [address] [place] [address] Body temperature 98.6 [degF] Normal 37.0 [facility] Comment on above: Performed By: #### A FAB5 #### [facility] ([id number]) [address] [place] [address] Glucose [Mass/Vol] 102 mg/dL High 65-99 [facility] Comment on above: Performed By: #### A FAB5 #### [facility] ([id number]) [address] [place] [address] HCO3 (Bld) [Moles/Vol] 23.3 mmol/L Normal 22-26 [facility] Comment on above: Performed By: #### A FAB5 #### [facility] ([id number]) [address] [place] [address] Hematocrit (Bld) [Volume fraction] 37 % Low 39-49 [facility] Comment on above: Performed By: #### A FAB5 #### [facility] ([id number]) [address] [place] [address] Hemoglobin (Bld) [Mass/Vol] 12.1 g/dL Low 13.0-17.0 [facility] Comment on above: Performed By: #### A FAB5 #### [facility] ([id number]) [address] [place] [address] INSP. O2 CONC. 100 % Normal [facility] Comment on above: Performed By: #### A FAB5 #### [facility] ([id number]) [address] [place] [address] IONIZED CALCIUM 4.9 mg/dL Normal 4.5-5.3 [facility] Comment on above: Performed By: #### A FAB5 #### [facility] ([id number]) [address] [place] [address] Oxygen (Bld) [Partial pressure] 212 mm[Hg] High 80-100 [facility] Comment on above: Performed By: #### A FAB5 #### [facility] ([id number]) [address] [place] [address] Oxygen saturation in Blood 100.0 % Normal >90 [facility] Comment on above: Performed By: #### A FAB5 #### [facility] ([id number]) [address] [place] [address] PCO2 35.0 MMHG Normal 35-45 [facility] Comment on above: Performed By: #### A FAB5 #### [facility] ([id number]) [address] [place] [address] pH (Bld) 7.433 [pH] Normal 7.350-7.45 0 [facility] Comment on above: Performed By: #### A FAB5 #### [facility] ([id number]) [address] [place] [address] Potassium [Moles/Vol] 3.8 mmol/L Normal 3.5-5.0 [facility] Comment on above: Performed By: #### A FAB5 #### [facility] ([id number]) [address] [place] [address] SAMPLE SITE HARINI Normal [facility] Comment on above: Performed By: #### A FAB5 #### [facility] ([id number]) [address] [place] [address] SAMPLE TYPE Arterial Normal [facility] Comment on above: Performed By: #### A FAB5 #### [facility] ([id number]) [address] [place] [address] XR CHEST 1 VWon 02-15-2024 XR CHEST 1 VW XR CHEST 1 VW Single view chest History: Evaluate tube/line placement post-op cardiac surgery. Chest pain. Comparison: 04/09/2021 Findings: Single portable view of the chest. Endotracheal tube in satisfactory position 5.7 cm above the helena. Enteric tube extends beneath the diaphragm. Left-sided chest tube in place. Mediastinal drainage tubes in place. Right IJ central line in place. Mild subcutaneous emphysema over the right and left neck. Cardiac silhouette is normal in size. Trachea midline. Interval sternotomy. Trace left pleural effusion with left basilar atelectasis. No measurable pneumothorax. Mild interstitial prominence. Impression: 1. Support lines and tubes in satisfactory positions. 2. Trace left pleural effusion with left basilar atelectasis. 3. Mild interstitial edema. Finalized by Martin Adler MD on 02/15/2024 12:25 PM Normal [facility] aPTT Coag (PPP) [Time]on aPTT Coag (Bld) [Time] 27 s Normal 26-37 [facility] Comment on above: Performed By: #### C BC, PINR, 91746-6, CMP, 1988-5, HA1C, 07678-3 #### [facility] ([id number]) [address] [place] [address] CT CHEST W CONTon 02-12-2024 CT CHEST W CONT CT CHEST W CONT HISTORY: Dilated aorta. Preoperative testing Comparison February 11, 2019 CT chest PROCEDURE: CT chest performed using IV contrast without complications. Postcontrast images obtained. Automated exposure control utilized. FINDINGS: Mid ascending thoracic aorta measures 40.5 mm. No dissection stenosis or occlusion. Moderate calcific plaque deposition at the origin of the great vessels but without hemodynamically significant stenosis New pericardial effusion of uncertain significance measuring 17 mm in thickness anteriorly. This will be best assessed in combination with other clinical data. Heavy coronary artery calcifications are demonstrated Stable benign 6 mm calcified granuloma in the lingula. No suspicious lung nodules No consolidation or pleural fluid No mediastinal, hilar, or axillary masses or adenopathy IMPRESSION: No acute findings. Mid ascending thoracic aorta measures 40.5 mm. No dissection stenosis or occlusion. Moderate calcific plaque deposition at the origin of the great vessels but without hemodynamically significant stenosis New pericardial effusion of uncertain significance measuring 17 mm in thickness anteriorly. This will be best assessed in combination with other clinical data. Heavy coronary artery calcifications are demonstrated Stable benign 6 mm calcified granuloma in the lingula. * Finalized by Roge Pollock MD on 02/12/2024 11:35 AM Normal [facility] COMPLETE BLOOD COUNTon 02-08 Erythrocyte distribution width (RBC) [Ratio] 14.6 % Normal 11.5-15.0 [facility] Comment on above: Performed By: #### C OLGA HAMMER, 82381-4, CMP, 1987-07, HA1C, 78568-8 #### [facility] ([id number]) [address] [place] [address] Hematocrit (Bld) [Volume fraction] 39.0 % Normal 39-49 [facility] Comment on above: Performed By: #### C OLGA HAMMER, 44604-8, CMP, 1987-07, HA1C, 01682-4 #### [facility] ([id number]) [address] [facility] [place] [address] Hemoglobin (Bld) [Mass/Vol] 13.4 g/dL Normal 13.0-17.0 [facility] Comment on above: Performed By: #### C BC, PINR, 32847-1, CMP, 1987-07, HA1C, 63287-7 #### [facility] ([id number]) [address] [place] [address] MCH (RBC) [Entitic mass] 30.3 pg Normal 27-34 [facility] Comment on above: Performed By: #### C BC, PINR, 85503-5, CMP, 1987-07, HA1C, 11470-1 #### [facility] ([id number]) [address], [address] [place] [address] MCHC (RBC) [Mass/Vol] 34.3 g/dL Normal 32-36 [facility] Comment on above: Performed By: #### Rebecca BC, PINR, 58883-0, CMP, 1987-07, HA1C, 94768-9 #### [facility] ([id number]) [address] [place] [address] MCV (RBC) [Entitic vol] 88 fL Normal 80-100 [facility] Comment on above: Performed By: #### Rebecca BC, PINR, 57316-9, CMP, 1987-07, HA1C, 60265-5 #### [facility] ([id number]) [address] [place] [address] Platelet mean volume (Bld) [Entitic vol] 8.0 fL Normal 7-12 [facility] Comment on above: Performed By: #### Rebecca BC, PINR, 60488-1, CMP, 1987-07, HA1C, 24351-6 #### [facility] ([id number]) [address] [place] [address] Platelets (Bld) [#/Vol] 203 10*3/uL Normal 150-450 [facility] Comment on above: Performed By: #### C BC, PINR, 34940-6, CMP, 1987-07, HA1C, 99885-5 #### [facility] ([id number]) [address] [place] [address] RBC COUNT 4.42 X10E12/L Normal 4.10-5.70 [facility] Comment on above: Performed By: #### C BC, PINR, 69919-2, CMP, 1987-07, HA1C, 17928-1 #### [facility] ([id number]) [address] [place] [address] WBC (Bld) [#/Vol] 5.7 10*3/uL Normal 4.0-11.0 [facility] Comment on above: Performed By: #### C BC, PINR, 29103-0, CMP, 1987-07, HA1C, 25480-5 #### [facility] ([id number]) [address] [place] [address] COMPREHENSIVE METABOLIC PANE Jose 02-09-2024 Albumin [Mass/Vol] 4.3 g/dL Normal 3.2-5.3 [facility] Comment on above: Performed By: #### C BC, PINR, 74548-0, CMP, 1987-07, HA1C, 86272-9 #### [facility] ([id number]) [address] [place] [address] ALP [Catalytic activity/Vol] 46 U/L Normal 39-130 [facility] Comment on above: Performed By: #### C BC, PINR, 38441-1, CMP, 1987-07, HA1C, 75354-5 #### [facility] ([id number]) [address] [place] [address] ALT [Catalytic activity/Vol] 13 U/L Normal 0-40 [facility] Comment on above: Performed By: #### C BC, PINR, 97840-3, CMP, 1987-07, HA1C, 12372-9 #### [facility] ([id number]) [address], [address] [place] [address] Anion gap [Moles/Vol] 10 mmol/L Normal 5-15 [facility] Comment on above: Performed By: #### C BC, PINR, 59582-9, CMP, 1987-07, HA1C, 25717-6 #### [facility] ([id number]) [address], [address] [place] [address] AST [Catalytic activity/Vol] 16 U/L Normal 0-41 [facility] Comment on above: Performed By: #### C BC, PINR, 77789-2, CMP, 1987-07, HA1C, 98707-1 #### [facility] ([id number]) [address], [address] [place] [address] Bilirubin [Mass/Vol] 1.4 mg/dL High 0.3-1.2 [facility] Comment on above: Performed By: #### C BC, PINR, 68518-4, CMP, 1987-07, HA1C, 22120-6 #### [facility] ([id number]) [address], [address] [place] [address] Calcium [Mass/Vol] 9.7 mg/dL Normal 8.5-10.5 [facility] Comment on above: Performed By: #### C BC, PINR, 85415-2, CMP, 1987-07, HA1C, 30725-4 #### [facility] ([id number]) [address], [address] [place] [address] Chloride [Moles/Vol] 102 mmol/L Normal 98-109 [facility] Comment on above: Performed By: #### C BC, PINR, 68693-0, CMP, 1987-07, HA1C, 29602-7 #### [facility] ([id number]) [address], [address] [place] [address] CO2 [Moles/Vol] 27 mmol/L Normal 22-32 [facility] Comment on above: Performed By: #### C BC, PINR, 87978-3, CMP, 1987-07, HA1C, 45283-9 #### [facility] [facility] ([id number]) [address], [address] [place] [address] Creatinine [Mass/Vol] 1.10 mg/dL Normal 0.60-1.30 [facility] Comment on above: Result Comment: METH OD TRACEABLE TO IDMS STANDARD Performed By: #### C JAQUELIN, PINR, 90366-6, [facility], 1987-07, HA1C, 33043-7 #### [facility] ([id number]) [address], [facility] [address] [place] [address] GFR/1.73 sq M.predicted among non-blacks MDRD (S/P/Bld) [Vol rate/Area] 69 mL/min/{1.73_m2} Normal >59 [facility] Comment on above: Result Comment: Reported eGFR is based on the CKD-EPI 2020 equation that does not use a race coefficient. Performed By: #### C BC, PINR, 40847-9, [facility], 1987-07, HA1C, 51430-3 #### [facility] ([id number]) [address], [address] [place] [address] Glucose [Mass/Vol] 90 mg/dL Normal 65-99 [facility] Comment on above: Performed By: #### C BC, PINR, 26883-0, [facility], 1987-07, HA1C, 00885-3 #### [facility] ([id number]) [address], [address] [place] [address] Potassium [Moles/Vol] 4.2 mmol/L Normal 3.5-5.0 [facility] Comment on above: Performed By: #### C BC, PINR, 06162-8, CMP, 1987-07, HA1C, 09401-6 #### [facility] ([id number]) [address], [address] [place] [address] Protein [Mass/Vol] 7.1 g/dL Normal 6.0-8.0 [facility] Comment on above: Performed By: #### C BC, PINR, 44587-4, CMP, 1987-07, HA1C, 18017-3 #### [facility] ([id number]) [address], [address] [place] [address] Sodium [Moles/Vol] 139 mmol/L Normal 134-146 [facility] Comment on above: Performed By: #### C BC, PINR, 20743-7, CMP, 1987-07, HA1C, 03701-0 #### [facility] ([id number]) [address], [address] [place] [address] Urea nitrogen [Mass/Vol] 22 mg/dL Normal 5-27 [facility] Comment on above: Performed By: #### C BC, PINR, 24053-7, CMP, 1987-07, HA1C, 63840-9 #### [facility] ([id number]) [address], [address] [place] [address] CRP [Mass/Vol]on 02-09-2024 C REACTIVE PROTEIN 0.5 mg/dL Normal 0.000-0.7 4 4 [facility] Comment on above: Performed By: #### C BC, PINR, 87801-2, CMP, 1987-07, HA1C, 01478-9 #### [facility] ([id number]) [address], [address] [place] [address] HGB A1C (GLYCO-HGB)on 2023 Glucose [Mass/Vol] 117 mg/dL Normal [facility] Comment on above: Performed By: #### C BC, PINR, 57617-2, CMP, 1987-07, HA1C, 11098-6 #### [facility] ([id number]) [address], [address] [place] [address] HbA1c (Bld) [Mass fraction] 5.7 % High 4.4-5.6 [facility] Comment on above: Result Comment: NOTE ADA Guidelines Result HgbA1c Normal : less than 5.7 % Prediabetes : 5.7 % to 6.4 % Diabetes : > 6.4 % Use with caution in patients with abnormal hemoglobin variants as the half-life of red blood cells and in vivo glycation rates are affected. Performed By: #### C OLGA HAMMER, 75562-0, GURJIT, 1987-07, HA1C, 96940-2 #### [facility] ([id number]) [address], [address] [place] [address] Natriuretic peptide B [Mass/ Vol]on 02-09-2024 Natriuretic peptide B (Bld) [Mass/Vol] 114 pg/mL High <100.0 [facility] Comment on above: Performed By: #### C KEVIN HAMMERR, 99982-8, GURJIT, 1987-07, HA1C, 33863-3 #### [facility] ([id number]) [address], [address] [place] [address] PROTIME AND INRon 02-09-2024 INR Coag (PPP) [Relative time] 1.3 {INR} High 0.8-1.1 [facility] Comment on above: Performed By: #### C JAQUELIN, PINR, 22375-1, CMP, 1987-07, HA1C, 13881-9 #### [facility] ([id number]) [address], [address] [place] [address] PT Coag (PPP) [Time] 14.8 s High 9.8-13.2 [facility] Comment on above: Performed By: #### C JAQUELIN, PINR, 47415-4, CMP, 1988-5, HA1C, 27305-4 #### [facility] ([id number]) [address], [address] [place] [address] URINALYSISon 02-09-2024 Bilirubin Ql (U) Negative Normal NEG [facility] Comment on above: Performed By: #### U A #### [facility] ([id number]) [address] [facility] [facility] [place] [address] BLOOD/HGB Negative Normal NEG [facility] Comment on above: Performed By: #### U A #### [facility] ([id number]) [address] [facility] [facility] [place] [address] Color (U) YELLOW Normal YELLOW [facility] Comment on above: Performed By: #### U A #### [facility] ([id number]) [address] [facility] [facility] [place] [address] Glucose Ql (U) Negative Normal NEG [facility] Comment on above: Performed By: #### U A #### [facility] ([id number]) [address], [address] [place] [address] Ketones Ql (U) Trace Abnormal NEG [facility] Comment on above: Performed By: #### U A #### [facility] ([id number]) [address], [address] [place] [address] Leukocyte esterase Test strip Ql (U) Negative Normal NEG [facility] Comment on above: Performed By: #### U A #### [facility] ([id number]) [address], [address] [place] [address] Nitrite Ql (U) Negative Normal NEG [facility] Comment on above: Performed By: #### U A #### [facility] ([id number]) [address], [address] [place] [address] pH (U) 7.0 [pH] Normal 5.0-8.5 [facility] Comment on above: Performed By: #### U A #### [facility] ([id number]) [address], [address] [place] [address] Protein Ql (U) Negative Normal NEG [facility] Comment on above: Performed By: #### U A #### [facility] ([id number]) [address], [address] [place] [address] Specific gravity (U) [Rel density] 1.047 High 1.003-1.03 5 [facility] Comment on above: Performed By: #### U A #### [facility] ([id number]) [address] [facility] [place] [address] TURBIDITY CLEAR Normal CLEAR [facility] Comment on above: Performed By: #### U A #### [facility] ([id number]) [address], [address] [place] [address] Urobilinogen (U) [Mass/Vol] mg/dL Normal <1.1 [facility] Comment on above: Performed By: #### U A #### [facility] ([id number]) [address], [address] [place] [address] aPTT Coag (PPP) [Time]on aPTT Coag (Bld) [Time] 49 s High 26-37 [facility] Comment on above: Performed By: #### C BC, PINR, 92412-0, CMP, 1988-5, HA1C, 64193-4 #### [facility] ([id number]) [address], [address] [place] [address] POCT Protime / INRon 024 INR Coag (PPP) [Relative time] 1.4 {INR} Abnormal 0.8 - 1.2 [facility] Interpretation and review of laboratory results Abnormal [facility] BASIC METABOLIC PANLon 02-02 Anion gap [Moles/Vol] 7 mmol/L Normal 5-15 [facility] Comment on above: Performed By: #### Rebecca HAMMER, BMP #### [facility] ([id number]) [address], [address] [place] [address] Calcium [Mass/Vol] 9.6 mg/dL Normal 8.5-10.5 [facility] Comment on above: Performed By: #### C JAQUELIN, BMP #### [facility] ([id number]) [address], [address] [place] [address] Chloride [Moles/Vol] 103 mmol/L Normal 98-109 [facility] Comment on above: Performed By: #### Rebecca HAMMER, BMP #### [facility] ([id number]) [address], [address] [place] [address] CO2 [Moles/Vol] 27 mmol/L Normal 22-32 [facility] Comment on above: Performed By: #### Rebecca HAMMER, BMP #### [facility] ([id number]) [address], [address] [place] [address] Creatinine [Mass/Vol] 1.17 mg/dL Normal 0.60-1.30 [facility] Comment on above: Result Comment: METH OD TRACEABLE TO IDMS STANDARD Performed By: #### Rebecca HAMMER, BMP #### [facility] ([id number]) [address], [address] [place] [address] GFR/1.73 sq M.predicted among non-blacks MDRD (S/P/Bld) [Vol rate/Area] 64 mL/min/{1.73_m2} Normal >59 [facility] Comment on above: Result Comment: Reported eGFR is based on the CKD-EPI 2020 equation that does not use a race coefficient. Performed By: #### C JAQUELIN, BMP #### [facility] ([id number]) [address], [address] [place] [address] Glucose [Mass/Vol] 115 mg/dL High 65-99 [facility] Comment on above: Performed By: #### C JAQUELIN, BMP #### [facility] ([id number]) [address], [address] [place] [address] Potassium [Moles/Vol] 4.4 mmol/L Normal 3.5-5.0 [facility] Comment on above: Performed By: #### C JAQUELIN, BMP #### [facility] ([id number]) [address], [address] [place] [address] Sodium [Moles/Vol] 137 mmol/L Normal 134-146 [facility] Comment on above: Performed By: #### Rebecca HAMMER, BMP #### [facility] ([id number]) [address], [address] [place] [address] Urea nitrogen [Mass/Vol] 21 mg/dL Normal 5-27 [facility] Comment on above: Performed By: #### Rebecca HAMMER, BMP #### [facility] ([id number]) [address], [address] [place] [address] COMPLETE BLOOD COUNTon 02-02 Erythrocyte distribution width (RBC) [Ratio] 14.3 % Normal 11.5-15.0 [facility] Comment on above: Performed By: #### Rebecca HAMMER, BMP #### [facility] ([id number]) [address], [address] [place] [address] Hematocrit (Bld) [Volume fraction] 37.7 % Low 39-49 [facility] Comment on above: Performed By: #### C JAQUELIN, BMP #### [facility] ([id number]) [address], [address] [place] [address] Hemoglobin (Bld) [Mass/Vol] 13.0 g/dL Normal 13.0-17.0 [facility] Comment on above: Performed By: #### C JAQUELIN, BMP #### [facility] ([id number]) [address], [address] [place] [address] MCH (RBC) [Entitic mass] 30.8 pg Normal 27-34 [facility] Comment on above: Performed By: #### Rebecca HAMMER, BMP #### [facility] ([id number]) [address], [address] [place] [address] MCHC (RBC) [Mass/Vol] 34.6 g/dL Normal 32-36 [facility] Comment on above: Performed By: #### C JAQUELIN, BMP #### [facility] ([id number]) [address], [address] [place] [address] MCV (RBC) [Entitic vol] 89 fL Normal 80-100 [facility] Comment on above: Performed By: #### Rebecca HAMMER, BMP #### [facility] ([id number]) [address], [address] [place] [address] Platelet mean volume (Bld) [Entitic vol] 8.4 fL Normal 7-12 [facility] Comment on above: Performed By: #### Rebecca HAMMER, BMP #### [facility] ([id number]) [address], [address] [place] [address] Platelets (Bld) [#/Vol] 215 10*3/uL Normal 150-450 [facility] Comment on above: Performed By: #### Rebecca HAMMER, BMP #### [facility] ([id number]) [address], [address] [place] [address] RBC COUNT 4.22 X10E12/L Normal 4.10-5.70 [facility] Comment on above: Performed By: #### Rebecca HAMMER, BMP #### [facility] ([id number]) [address], [address] [place] [address] WBC (Bld) [#/Vol] 5.4 10*3/uL Normal 4.0-11.0 [facility] Comment on above: Performed By: #### C BC, BMP #### [facility] ([id number]) [address] [facility] [place] [address] POCT EKGon 01-29-2024 [facility] POCT Protime / INRon 01-14- 024 INR Coag (PPP) [Relative time] 2.3 {INR} Abnormal 0.8 - 1.2 [facility] Interpretation and review of laboratory results Abnormal [facility] POCT Protime / INRon 11-19- 024 INR Coag (PPP) [Relative time] 2.3 {INR} Abnormal 0.8 - 1.2 [facility] Interpretation and review of laboratory results Abnormal [facility] POCT Protime / INRon 10-29-2 024 INR Coag (PPP) [Relative time] 2.3 {INR} Abnormal 0.8 - 1.2 [facility] Interpretation and review of laboratory results Abnormal [facility] POCT Protime / INRon 09-01-2 024 INR Coag (PPP) [Relative time] 2.1 {INR} Abnormal 0.8 - 1.2 [facility] Interpretation and review of laboratory results Abnormal [facility] POCT Protime / INRon 07-09-2 024 INR Coag (PPP) [Relative time] 2.6 {INR} Abnormal 0.8 - 1.2 [facility] Interpretation and review of laboratory results Abnormal [facility] POCT Protime / INRon 05-21-2 024 INR Coag (PPP) [Relative time] 2.0 {INR} Abnormal 0.8 - 1.2 [facility] Interpretation and review of laboratory results Abnormal [facility] POCT Protime / INRon 04-03-2 024 INR Coag (PPP) [Relative time] 2.2 {INR} Abnormal 0.8 - 1.2 [facility] Interpretation and review of laboratory results Abnormal [facility] Activated partial thrombopla stin time (aPTT) in platelet poor plasma by coagulation aOrdered By: YOU [place]IREZ on 02-24-2023 aPTT Coag (PPP) [Time] 30.8 s 25.1-36.5 [facility] Comment on above: A hematocrit value g reater than 55% may lead to inaccurate results in coagulation testing. Patients having hematocrit values >55% require a special collection tube for coagulation studies. Please contact the laboratory at [phone] for redraw instructions. Coagulation Profileon 2022 aPTT Coag (Bld) [Time] 30.8 s Normal 25.1-36.5 [facility] Comment on above: Result Comment: A he matocrit value greater than 55% may lead to inaccurate results in coagulation testing. Patients having hematocrit values >55% require a special collection tube for coagulation studies. Please contact the laboratory at [phone] for redraw instructions. PERFORMED BY: [address] [address] PATHOLOGIST [employer]INE [employer] OPERATOR QING BABB M.D. Performed By: #### P P #### [facility] [address] [id number] [facility] INR Coag (PPP) [Relative time] 1.2 {INR} Normal [facility] Comment on above: Result Comment: INR Therapeutic [...] 4.5 Performed By: #### P P #### [facility] [address] PT Coag (PPP) [Time] 13.9 s High 9.0-12.9 [facility] Comment on above: Result Comment: A he matocrit value greater than 55% may lead to inaccurate results in coagulation testing. Patients having hematocrit values >55% require a special collection tube for coagulation studies. Please contact the laboratory at [phone] for redraw instructions. Performed By: #### P P #### [facility] [address] INR in Platelet poor plasma by Coagulation assayOrdered By: YOU RAMIREZ on 02-24-2023 INR Coag (PPP) [Relative time] 1.2 {INR} [facility] Comment on above: INR Therapeutic Rang e [...] - 4.5 Jose 02-24-2023 L ------ Specimen: [id number] Received: 02/24/23 Status: MIK Stern Num: [id number] Spec Type: Surgical Subm Dr: Willie Ross DO Tissues: A Skin-Other than Cyst, tag, debridement or plastic repair (LT CHEEK) B Skin-Other than Cyst, tag, debridement or plastic repair (RT JEW) Procedures: HE/6, Gross/Micro L4/2, FS HE/6 Age/ Patient Sex Location Account Attending Physician Remi Zarco 77/M CO [id number] Willie Ross DO SPEC NUM: [id number] RECD: 02/24/23 STATUS: MIK STERN NUM: [id number] ARIAN: 02/24/23 [facility] DR: Willie Ross DO ENTERED: [...] evidently negative for malignancy B. Skin, right orthodox, excision: - Benign seborrheic keratosis of the mixed reticular, mildly pigmented, and the usual plaque types - Incidental occasional mild colonizations of dermatophyte spores of note - Adequately removed for assessment, and no evidence of malignancy, squamous dysplasia, or nevoid atypia identified Specimen: [id number] Received: 02/24/23 Status: MIK Stern Num: [id number] Spec Type: Surgical Subm Dr: Willie Ross DO Tissues: A Skin-Other than Cyst, tag, debridement or plastic repair (LT CHEEK) B Skin-Other than Cyst, tag, debridement or plastic repair (RT JEW) Procedures: HE/6, Gross/Micro L4/2, FS HE/6 Patient: Remi Zarco [id number] (Continued) Specimen: [id number] Received: 02/24/23 (Continued) Signed (signature on file) Oseas Lai MD 02/25/23 1518 Specimen: [id number] Received: 02/24/23 Status: MIK Stern Num: [id number] Spec Type: Surgical Subm Dr: Willie Ross DO Tissues: A Skin-Other than Cyst, tag, debridement or plastic repair (LT CHEEK) B Skin-Other than Cyst, tag, debridement or plastic repair (RT JEW) Procedures: HE/6, Gross/Micro L4/2, FS HE/6 Patient: Remi Zarco [id number] (Continued) Specimen: [id number] Received: 02/24/23-1323 (Continued) Clinical Information A) basal [...] the patient's name, date of and right orthodox skin lesion is a 1.7 x 0.7 [...] tip B (more content not included)... Normal [facility] Prothrombin time (PT)Ordered By: YOU RAMIREZ on 02-24-2023 PT Coag (PPP) [Time] 13.9 s 9.0-12.9 [facility] Comment on above: A hematocrit value g reater than 55% may lead to inaccurate results in coagulation testing. Patients having hematocrit values >55% require a special collection tube for coagulation studies. Please contact the laboratory at [phone] for redraw instructions. Basic Metabolic Panelon Anion gap [Moles/Vol] 8.9 mmol/L Normal 6.0-15.0 [facility] Comment on above: Performed By: #### C BC, BMP #### [place] [address] [place] Calcium [Mass/Vol] 9.3 mg/dL Normal 8.6-10.3 [facility] Comment on above: Result Comment: PERF ORMED BY: [facility] [address] [place] [address] PATHOLOGIST [employer] OPERATOR QING BABB M.D. Performed By: #### C BC, BMP #### [facility] [address] [id number] [place] Chloride [Moles/Vol] 105 mmol/L Normal 98-107 [facility] Comment on above: Performed By: #### C BC, BMP #### [facility] [address] CO2 [Moles/Vol] 28.3 mmol/L Normal 21.0-31.0 [facility] Comment on above: Performed By: #### C BC, BMP #### [address] Creatinine [Mass/Vol] 1.19 mg/dL Normal 0.70-1.30 [facility] Comment on above: Performed By: #### C BC, BMP #### [place] [address] [place] GFR/1.73 sq M.predicted MDRD (S/P/Bld) [Vol rate/Area] mL/min/{1.73_m2} Normal [facility] Comment on above: Performed By: #### C JAQUELIN, BMP #### [address] Glucose [Mass/Vol] 93 mg/dL Normal 70-100 [facility] Comment on above: Result Comment: [place] Glucose Reference Range is dependent on time and content of last meal. Glucose of more than 200 mg/dL in a nonstressed, ambulatory subject supports the diagnosis of Diabetes Mellitus. ADA recommended reference range Performed By: #### C JAQUELIN, BMP #### [address] Potassium [Moles/Vol] 4.2 mmol/L Normal 3.5-5.1 [facility] Comment on above: Performed By: #### C BC, BMP #### [place] [address] [place] Sodium [Moles/Vol] 138 mmol/L Normal 136-145 [facility] Comment on above: Performed By: #### C BC, BMP #### [address] Urea nitrogen [Mass/Vol] 21 mg/dL Normal 7-25 [facility] Comment on above: Performed By: #### C BC, BMP #### [place] [address] [place] Basophils Auto (Bld) [#/Vol] Ordered By: Willie Ross on 02-10-2023 Basophils (Bld) [#/Vol] 0.1 10*3/uL 0.0-0.2 [facility] Basophils/100 WBC Auto (Bld) Ordered By: Willie Rsos on 02-10-2023 Basophils/100 WBC (Bld) 1.2 % . [facility] Calcium [Mass/volume] in Ser um or PlasmaOrdered By: Willie Ross on 02-10-2023 Calcium [Mass/Vol] 9.3 mg/dL 8.6-10.3 [facility] Carbon dioxide, total [Moles /volume] in Serum or PlasmaOrdered By: Willie Ross on 02-10-2023 CO2 [Moles/Vol] 28.3 mmol/L 21.0-31.0 [facility] Chloride [Moles/volume] in S esther or PlasmaOrdered By: Willie Ross on 02-10-2023 Chloride [Moles/Vol] 105 mmol/L 98-107 [facility] Complete Blood Count Auto Di ffon 02-10-2023 Basophils (Bld) [#/Vol] 0.1 10*3/uL Normal 0.0-0.2 [facility] Comment on above: Result Comment: PERF ORMED BY: [address] [place] [address] PATHOLOGIST [employer] OPERATOR QING BABB M.D. Performed By: #### C BC, BMP #### [facility] [address] Basophils/100 WBC (Bld) 1.2 % Normal . [facility] Comment on above: Performed By: #### C BC, BMP #### [facility] [address] [place] [address] [place] Eosinophils (Bld) [#/Vol] 0.2 10*3/uL Normal 0.0-0.45 [facility] Comment on above: Performed By: #### C BC, BMP #### [facility] [address] [place] [address] [place] Eosinophils/100 WBC (Bld) 3.7 % Normal . [facility] Comment on above: Performed By: #### C BC, BMP #### [facility] [address] Erythrocyte distribution width (RBC) [Ratio] 14.4 % Normal 12.0-14.8 [facility] Comment on above: Performed By: #### C BC, BMP #### [facility] [address] Hematocrit (Bld) [Volume fraction] 37.2 % Low 38.8-50.0 [facility] Comment on above: Performed By: #### C BC, BMP #### [facility] [address] Hemoglobin (Bld) [Mass/Vol] 12.8 g/dL Low 13.0-17.0 [facility] Comment on above: Performed By: #### C BC, BMP #### [address] Lymphocytes (Bld) [#/Vol] 1.2 10*3/uL Normal 1.00-4.8 [facility] Comment on above: Performed By: #### C BC, BMP #### [address] Lymphocytes/100 WBC (Bld) 23.4 % Normal . [facility] Comment on above: Performed By: #### C BC, BMP #### [address] MCH (RBC) [Entitic mass] 30.3 pg Normal 27.5-35.2 [facility] Comment on above: Performed By: #### C BC, BMP #### [address] MCV (RBC) [Entitic vol] 87.9 fL Normal 83.5-101 [facility] Comment on above: Performed By: #### C BC, BMP #### [address] Mean Corpuscular HGB Conc 34.5 g/dL Normal 32.5-35.6 [facility] Comment on above: Performed By: #### C BC, BMP #### [facility] [address] [place] [address] [place] Monocytes (Bld) [#/Vol] 0.3 10*3/uL Normal 0.0-0.8 [facility] Comment on above: Performed By: #### C BC, BMP #### [facility] [address] [place] [address] [place] Monocytes/100 WBC (Bld) 6.8 % Normal . [facility] Comment on above: Performed By: #### C BC, BMP #### [facility] [address] [place] [address] [place] Neutrophils (Bld) [#/Vol] 3.3 10*3/uL Normal 1.8-7.7 [facility] Comment on above: Performed By: #### C BC, BMP #### [facility] [address] Neutrophils/100 WBC (Bld) 64.9 % Normal . [facility] Comment on above: Performed By: #### C BC, BMP #### [facility] [address] [place] [address] [place] NRBC% 0.1 /100{WBC} Normal 0-0.5 [facility] Comment on above: Performed By: #### C BC, BMP #### [facility] [address] [place] [address] [place] Platelet mean volume (Bld) [Entitic vol] 7.9 fL Normal 6.6-10.1 [facility] Comment on above: Performed By: #### C BC, BMP #### [facility] [address] [place] [address] [place] Platelets (Bld) [#/Vol] 203 10*3/uL Normal 150-450 [facility] Comment on above: Performed By: #### C BC, BMP #### [facility] [address] [place] [address] [place] RBC (Bld) [#/Vol] 4.23 10*6/uL Normal 3.90-5.60 [facility] Comment on above: Performed By: #### C JAQUELIN, BMP #### [facility] [address] [place] [id number] [place] WBC (Bld) [#/Vol] 5.1 10*3/uL Normal 4.1-10.5 [facility] Comment on above: Performed By: #### C BC, BMP #### [facility] [address] [place] [id number] [place] Creatinine [Mass/volume] in Serum or PlasmaOrdered By: Willie Ross on 02-10-2023 Creatinine [Mass/Vol] 1.19 mg/dL 0.70-1.30 [facility] Eosinophils Auto (Bld) [#/Vo l]Ordered By: Willie Ross on 02-10-2023 Eosinophils (Bld) [#/Vol] 0.2 10*3/uL 0.0-0.45 [facility] Eosinophils/100 WBC Auto (Bl d)Ordered By: Willie Ross on 02-10-2023 Eosinophils/100 WBC (Bld) 3.7 % . [facility] Erythrocyte distribution wid th Auto (RBC) [Ratio]Ordered By: Willie Ross on 02-10-2023 Erythrocyte distribution width (RBC) [Ratio] 14.4 % 12.0-14.8 [facility] Glucose [Mass/volume] in Ser um or PlasmaOrdered By: Willie Ross on 02-10-2023 Glucose [Mass/Vol] 93 mg/dL 70-100 [facility] Comment on above: ADA recommended refe rence rangeRandom Glucose Reference Range is dependent on time and content of last meal. Glucose of more than 200 mg/dL in a nonstressed, ambulatory subject supports the diagnosis of Diabetes Mellitus. Hematocrit Auto (Bld) [Volum e fraction]Ordered By: Willie Ross on 02-10-2023 Hematocrit (Bld) [Volume fraction] 37.2 % 38.8-50.0 [facility] Hemoglobin [Mass/volume] in BloodOrdered By: Willie Ross on 02-10-2023 Hemoglobin (Bld) [Mass/Vol] 12.8 g/dL 13.0-17.0 [facility] Leukocytes [#/volume] correc aster for nucleated erythrocytes in Blood by Automated counOrdered By: Willie Ross on 02-10-2023 WBC corrected for nucl RBC Auto (Bld) [#/Vol] 5.1 10*3/uL 4.1-10.5 [facility] Lymphocytes Auto (Bld) [#/Vo l]Ordered By: Willie Ross on 02-10-2023 Lymphocytes (Bld) [#/Vol] 1.2 10*3/uL 1.00-4.8 [facility] Lymphocytes/100 WBC Auto (Bl d)Ordered By: Willie Ross on 02-10-2023 Lymphocytes/100 WBC (Bld) 23.4 % . [facility] MCH Auto (RBC) [Entitic mass ]Ordered By: Willie Ross on 02-10-2023 MCH (RBC) [Entitic mass] 30.3 pg 27.5-35.2 [facility] MCHC Auto (RBC) [Mass/Vol]Or dered By: Willie Ross on 02-10-2023 MCHC (RBC) [Mass/Vol] 34.5 g/dL 32.5-35.6 [facility] MCV Auto (RBC) [Entitic vol] Ordered By: Willie Ross on 02-10-2023 MCV (RBC) [Entitic vol] 87.9 fL 83.5-101 [facility] Monocytes Auto (Bld) [#/Vol] Ordered By: Willie Ross on 02-10-2023 Monocytes (Bld) [#/Vol] 0.3 10*3/uL 0.0-0.8 [facility] Monocytes/100 WBC Auto (Bld) Ordered By: Willie Ross on 02-10-2023 Monocytes/100 WBC (Bld) 6.8 % . [facility] Neutrophils Auto (Bld) [#/Vo l]Ordered By: Willie Ross on 02-10-2023 Neutrophils (Bld) [#/Vol] 3.3 10*3/uL 1.8-7.7 [facility] Neutrophils/100 WBC Auto (Bl d)Ordered By: Willie Ross on 02-10-2023 Neutrophils/100 WBC (Bld) 64.9 % . [facility] No Panel InformationOrdered By: Willie Ross on 02-10-2023 Estimated GFR (CKD-EPI) > 60.0 mL/Min [facility] Creatinine Clearance (Chem N/A [facility] Nucleated erythrocytes [Pres ence] in Blood by Automated countOrdered By: iWllie Ross on 02-10-2023 Nucleated RBC Auto Ql (Bld) 0.1 /100{WBC} 0-0.5 [facility] Platelet mean volume Auto (B ld) [Entitic vol]Ordered By: Willie Ross on 02-10-2023 Platelet mean volume (Bld) [Entitic vol] 7.9 fL 6.6-10.1 [facility] Platelets Auto (Bld) [#/Vol] Ordered By: Willie Ross on 02-10-2023 Platelets (Bld) [#/Vol] 203 10*3/uL 150-450 [facility] Potassium [Moles/volume] in Serum or PlasmaOrdered By: Willie Ross on 02-10-2023 Potassium [Moles/Vol] 4.2 mmol/L 3.5-5.1 [facility] RBC Auto (Bld) [#/Vol]Ordere d By: Willie Ross on 02-10-2023 RBC (Bld) [#/Vol] 4.23 10*6/uL 3.90-5.60 [facility] Serum or plasma anion gap de terminationOrdered By: Willie Ross on 02-10-2023 Anion gap [Moles/Vol] 8.9 mmol/L 6.0-15.0 [facility] Sodium [Moles/volume] in Ser um or PlasmaOrdered By: Willie Ross on 02-10-2023 Sodium [Moles/Vol] 138 mmol/L 136-145 [facility] Urea nitrogen [Mass/volume] in Serum or PlasmaOrdered By: Willie Ross on 02-10-2023 Urea nitrogen [Mass/Vol] 21 mg/dL 7-25 [facility] WBC Auto (Bld) [#/Vol]Ordere d By: Willie Ross on 02-10-2023 WBC (Bld) [#/Vol] 5.1 10*3/uL 4.1-10.5 [facility] RESPIRATORY PANEL PLUSon Adenovirus Not detected Normal NOT DETECTED [facility] Comment on above: Performed By: #### P OCGLUC #### [facility] [address] [place] [address] Dr. Saskia Arzate Parapertusis Not detected Normal NOT DETECTED [facility] Comment on above: Performed By: #### P OCGLUC #### [facility] [address] [place] [address] Dr. Saskia Arzate Pertussis Not detected Normal NOT DETECTED [facility] Comment on above: Performed By: #### P OCGLUC #### [facility] [address] [place] [address] Dr. Saskia Lai Chlamydia Pneumoniae Not detected Normal NOT DETECTED [facility] Comment on above: Performed By: #### P OCGLUC #### [facility] [address] [place] [address] Dr. Saskia Lai Coronavirus 229E Not detected Normal NOT DETECTED [facility] Comment on above: Performed By: #### P OCGLUC #### [facility] [address] [place] [address] Dr. Saskia Lai Coronavirus HKU1 Not detected Normal NOT DETECTED [facility] Comment on above: Performed By: #### P OCGLUC #### [facility] [address] [place] [address] Dr. Saskia Lai Coronavirus NL63 Not detected Normal NOT DETECTED [facility] Comment on above: Performed By: #### P OCGLUC #### [facility] [address] [place] [address] Dr. Saskia Lai Coronavirus OC43 Not detected Normal NOT DETECTED [facility] Comment on above: Performed By: #### P OCGLUC #### [facility] [address] [place] [address] Dr. Saskia Lai Influenza A H1 Not detected Normal NOT DETECTED [facility] Comment on above: Performed By: #### P OCGLUC #### [facility] [address] [place] [address] Dr. Saskia Lai Influenza A H1 2009 Not detected Normal NOT DETECTED [facility] Comment on above: Performed By: #### P OCGLUC #### [facility] [address] [place] [address] Dr. Saskia Lai Influenza A H3 Not detected Normal NOT DETECTED [facility] Comment on above: Performed By: #### P OCGLUC #### [facility] [address] [place] [address] Dr. Saskia Lai Influenza B Not detected Normal NOT DETECTED [facility] Comment on above: Performed By: #### P OCGLUC #### [facility] [address] [place] [address] Dr. Saskia Lai Metapneumovirus Detected Abnormal NOT DETECTED [facility] Comment on above: Performed By: #### P OCGLUC #### [facility] [address] [place] [address] Dr. Saskia Lai Mycoplas. Pneumoniae Not detected Normal NOT DETECTED [facility] Comment on above: Performed By: #### P OCGLUC #### [facility] [address] [place] [address] Dr. Saskia Lai Parainfluenza 1 Not detected Normal NOT DETECTED [facility] Comment on above: Performed By: #### P OCGLUC #### [facility] [address] [place] [address] Dr. Saskia Lai Parainfluenza 2 Not detected Normal NOT DETECTED [facility] Comment on above: Performed By: #### P OCGLUC #### [facility] [address] [place] [address] Dr. Saskia Lai Parainfluenza 3 Not detected Normal NOT DETECTED [facility] Comment on above: Performed By: #### P OCGLUC #### [facility] [address] [place] [address] Dr. Saskia Lai Parainfluenza 4 Not detected Normal NOT DETECTED [facility] Comment on above: Performed By: #### P OCGLUC #### [facility] [address] [place] [address] Dr. Saskai Lai Rhino/Enterovirus Not detected Normal NOT DETECTED [facility] Comment on above: Performed By: #### P OCGLUC #### [facility] [address] [place] [address] Dr. Saskia Lai RP2 Header 1 RESPIRATORY PANEL: VIRUSES Normal [facility] Comment on above: Performed By: #### P OCGLUC #### [facility] [address] [place] [address] Dr. Saskia Lai RP2 Header 2 RESPIRATORY PANEL: BACTERIA Normal [facility] Comment on above: Performed By: #### P OCGLUC #### [facility] [address] [place] [address] Dr. Saskia Lai RSV Not detected Normal NOT DETECTED [facility] Comment on above: Performed By: #### P OCGLUC #### [facility] [address] [place] [address] Dr. Saskia Lai SARS-CoV-2 (COVID-19) RNA TOSHA+probe Ql (Unsp spec) Not detected Normal NOT DETECTED [facility] Comment on above: Performed By: #### P OCGLUC #### [facility] [address] [place] [address] Dr. Saskia Lai CBC AUTO DIFFon 01-08-2022 BASO # 0.0 103/ul Normal 0.0-0.1 [facility] Comment on above: Performed By: #### C BC #### [facility] [address] [place] [address] Dr. Saskia Lai Basophils/100 WBC (Bld) 0.2 % Normal 0.2-2.0 [facility] Comment on above: Performed By: #### C BC #### [facility] [address] [place] [address] Dr. aSskia Lai EO # 0.1 103/ul Normal 0.0-0.[address] [facility] Comment on above: Performed By: #### C BC #### [facility] [address] [place] [address] Dr. Saskia Lai Eosinophils/100 WBC (Bld) 0.8 % Critically low 0.9-7.0 [facility] Comment on above: Performed By: #### C BC #### [facility] [address] [place] [address] Dr. Saskia Lai Erythrocyte distribution width (RBC) [Ratio] 14.6 % Normal 11.0-15.0 [facility] Comment on above: Performed By: #### C BC #### [facility] [address] [place] [address] Dr. Saskia Lai Hematocrit (Bld) [Volume fraction] 32.5 % Critically low 42.0-54.0 [facility] Comment on above: Performed By: #### C BC #### [facility] [address] [place] [address] Dr. Saskia Lai Hemoglobin (Bld) [Mass/Vol] 10.8 g/dL Critically low 14.0-18.0 [facility] Comment on above: Performed By: #### C BC #### [facility] [address] [place] [address] Dr. Saskia Lai IG # 0.02 10e3/ul Normal 0.00-0.03 [facility] Comment on above: Performed By: #### C BC #### [facility] [address] [place] [address] Dr. Saskia Lai IG % 0.2 % Normal 0.0-0.5 [facility] Comment on above: Performed By: #### C BC #### [facility] [address] [place] [address] Dr. Saskia Lai LYMPH # 1.2 103/ul Normal 1.2-3.[address] [facility] Comment on above: Performed By: #### C BC #### [facility] [address] [place] [address] Dr. Saskia Lai Lymphocytes/100 WBC (Bld) 12.3 % Critically low 20.5-60.0 [facility] Comment on above: Performed By: #### C BC #### [facility] [address] [place] [address] Dr. Saskia Lai MANUAL DIFF REQ NO Normal [facility] Comment on above: Performed By: #### C BC #### [facility] [address] [address] [address] Saskia Lai MCH (RBC) [Entitic mass] 29.8 pg Normal 25.9-34.[address] [facility] Comment on above: Performed By: #### C BC #### [facility] [address] [place] [address] Dr. Saskia Lai MCHC (RBC) [Mass/Vol] 33.2 g/dL Normal 29.9-35.[address] [facility] Comment on above: Performed By: #### C BC #### [facility] [address] [place] [address] Dr. Saskia Lai MCV (RBC) [Entitic vol] 89.8 fL Normal 80.0-94.[address] [facility] Comment on above: Performed By: #### C BC #### [facility] [address] [place] [address] Dr. Saskia Lai MONO # 0.7 103/ul Normal 0.3-0.8 [facility] Comment on above: Performed By: #### C BC #### [facility] [address] [place] [address] Dr. Saskia Lai Monocytes/100 WBC (Bld) 7.1 % Normal 1.7-12.0 [facility] Comment on above: Performed By: #### C BC #### [facility] [address] [place] [address] Dr. Saskia Lai NEUT # 7.6 103/ul Critically high 1.4-6.[address] [facility] Comment on above: Performed By: #### C BC #### [facility] [address] [place] [address] Dr. Saskia Lai Neutrophils/100 WBC (Bld) 79.4 % Critically high 43.0-75.[address] [facility] Comment on above: Performed By: #### C BC #### [facility] [address] [place] [address] Dr. Saskia Lai Platelet mean volume (Bld) [Entitic vol] 10.5 fL Normal 9.5-13.[address] [facility] Comment on above: Performed By: #### C BC #### [facility] [address] [address] [address] Saskia Lai PLT 172 103/ul Normal 150-[address] [facility] Comment on above: Performed By: #### C BC #### [facility] [address] [place] [address] Dr. Saskia Lai RBC 3.62 106/ul Critically low 4.70-6.[address] [facility] Comment on above: Performed By: #### C BC #### [facility] [address] [address] [address] Saskia Lai WBC 9.6 103/ul Normal 4.0-11.[address] [facility] Comment on above: Performed By: #### C BC #### [facility] [address] [place] [address] Dr. Saskia Lai [facility]-19 PCR [facility]on SARS-CoV-2 (COVID-19) RNA TOSHA+probe Ql (Unsp spec) Not detected Normal NOT DETECTED [facility] Comment on above: Result Comment: When [...] for this test is supported by the Special [employer] of Health and Human Service's declaration that [...] used). Performed By: #### C VDTBH #### [facility] [address] [place] [address] Dr. Saskia Lai PROF CHEM 8 (BAS METB)on Anion gap [Moles/Vol] 10.6 mmol/L Normal Th e [facility] Comment on above: Performed By: #### C VDTBH #### [facility] [address] [place] [address] Dr. Saskia Lai Calcium [Mass/Vol] 8.8 mg/dL Normal 8.5-10.1 [facility] Comment on above: Performed By: #### C VDTBH #### [facility] [address] [place] [address] Dr. Saskia Lai Chloride [Moles/Vol] 104 mmol/L Normal 98-107 [facility] Comment on above: Performed By: #### C VDTBH #### [facility] [address] [place] [address] Dr. Saskia Lai CO2 [Moles/Vol] 26.8 mmol/L Normal 21.0-32.0 [facility] Comment on above: Performed By: #### C VDTBH #### [facility] [address] [place] [address] Dr. Saskia Lai Creatinine [Mass/Vol] 1.18 mg/dL Normal 0.70-1.[address] [facility] Comment on above: Performed By: #### C VDTBH #### [facility] [address] [place] [address] Dr. Saskia Lai EGFR-AF TUVALUAN >60 Normal >=60 [facility] Comment on above: Performed By: #### C VDTBH #### [facility] [address] [place] [address] Dr. Saskia Lai EGFR-NON AF TUVALUAN 60 mL/min/1.73m2 Normal >=[address] [facility] Comment on above: Performed By: #### C VDTBH #### [facility] [address] [place] [address] Dr. Saskia Lai Glucose [Mass/Vol] 102 mg/dL Normal 74-[address] [facility] Comment on above: Performed By: #### C VDTBH #### [facility] [address] [place] [address] Dr. Saskia Lai Potassium [Moles/Vol] 4.4 mmol/L Normal 3.5-5.1 [facility] Comment on above: Performed By: #### C VDTBH #### [facility] [address] [place] [address] Dr. Saskia Lai Sodium [Moles/Vol] 137 mmol/L Normal 136-145 [facility] Comment on above: Performed By: #### C VDTBH #### [facility] [address] [place] [address] Dr. Saskia Lai Urea nitrogen [Mass/Vol] 32.0 mg/dL Critically high 7.0-18.0 [facility] Comment on above: Performed By: #### C VDTBH #### [facility] [address] [place] [address] Dr. Saskia Lai Urea nitrogen/Creatinine [Mass ratio] 27.1 mg/mg Normal [facility] Comment on above: Performed By: #### C VDTBH #### [facility] [address] [place] [address] Dr. Saskia Lai PROTIMEon 01-08-2022 INR Coag (PPP) [Relative time] 1.28 {INR} Normal [facility] Comment on above: Performed By: #### C VDTBH #### [facility] [address] [place] [address] Dr. Saskia Lai INR GUIDELINES SEE BELOW Normal [facility] Comment on above: Result Comment: GABI RED INR: 2.0 - 3.0 CONDITIONS NOT LISTED BELOW 2.5 - 3.5 FOR PROSTHETIC HEART VALVE REPLACEMENT 2.5 - 3.5 RECURRENT THROMBOSIS Performed By: #### C VDTBH #### [facility] [address] [place] [address] Dr. Saskia Lai PT Coag (PPP) [Time] 13.6 s Critically high 9.0-11.6 [facility] Comment on above: Performed By: #### C VDTBH #### [facility] [address] [place] [address] Dr. Saskia Lai CBC AUTO DIFFon 01-07-2022 BASO # 0.0 103/ul Normal 0.0-0.1 [facility] Comment on above: Performed By: #### P OCGLUC #### [facility] [address] [address] [address] Saskia Lai Basophils/100 WBC (Bld) 0.1 % Critically low 0.2-2.0 [facility] Comment on above: Performed By: #### P OCGLUC #### [facility] [address] [place] [address] Dr. Saskia Lai EO # 0.0 103/ul Normal 0.0-0.7 [facility] Comment on above: Performed By: #### P OCGLUC #### [facility] [address] [address] [address] Saskia Lai Eosinophils/100 WBC (Bld) 0.0 % Critically low 0.9-7.0 [facility] Comment on above: Performed By: #### P OCGLUC #### [facility] [address] [place] [address] Dr. Saskia Lai Erythrocyte distribution width (RBC) [Ratio] 14.5 % Normal 11.0-15.0 [facility] Comment on above: Performed By: #### P OCGLUC #### [facility] [address] [place] [address] Dr. Saskia Lai Hematocrit (Bld) [Volume fraction] 34.4 % Critically low 42.0-54.0 [facility] Comment on above: Performed By: #### P OCGLUC #### [facility] [address] [place] [address] Dr. Saskia Lai Hemoglobin (Bld) [Mass/Vol] 11.6 g/dL Critically low 14.0-18.0 [facility] Comment on above: Performed By: #### P OCGLUC #### [facility] [address] [place] [address] Dr. Saskia Lai IG # 0.05 10e3/ul Critically high 0.00-0.03 [facility] Comment on above: Performed By: #### P OCGLUC #### [facility] [address] [place] [address] Dr. Saskia Lai IG % 0.3 % Normal 0.0-0.5 [facility] Comment on above: Performed By: #### P OCGLUC #### [facility] [address] [address] [address] Saskia Lai LYMPH # 0.9 103/ul Critically low 1.2-3.8 [facility] Comment on above: Performed By: #### P OCGLUC #### [facility] [address] [address] [address] Saskia Lai Lymphocytes/100 WBC (Bld) 6.2 % Critically low 20.5-60.0 [facility] Comment on above: Performed By: #### P OCGLUC #### [facility] [address] [address] [address] Saskia Lai MANUAL DIFF REQ NO Normal [facility] Comment on above: Performed By: #### P OCGLUC #### [facility] [address] [place] [address] Dr. Saskia Lai MCH (RBC) [Entitic mass] 29.7 pg Normal 25.9-34.0 [facility] Comment on above: Performed By: #### P OCGLUC #### [facility] [address] [place] [address] Dr. Saskia Lai MCHC (RBC) [Mass/Vol] 33.7 g/dL Normal 29.9-35.2 [facility] Comment on above: Performed By: #### P OCGLUC #### [facility] [address] [place] [address] Dr. Saskia Lai MCV (RBC) [Entitic vol] 88.0 fL Normal 80.0-94.0 [facility] Comment on above: Performed By: #### P OCGLUC #### [facility] [address] [address] [address] Saskia Lai MONO # 1.0 103/ul Critically high 0.3-0.8 [facility] Comment on above: Performed By: #### P OCGLUC #### [facility] [address] [address] [address] Saskia Lai Monocytes/100 WBC (Bld) 6.5 % Normal 1.7-12.0 [facility] Comment on above: Performed By: #### P OCGLUC #### [facility] [address] [address] [address] Saskia Lai NEUT # 12.9 103/ul Critically high 1.4-6.5 [facility] Comment on above: Performed By: #### P OCGLUC #### [facility] [address] [address] [address] Saskia Lai Neutrophils/100 WBC (Bld) 86.9 % Critically high 43.0-75.0 [facility] Comment on above: Performed By: #### P OCGLUC #### [facility] [address] [address] [address] Saskia Lai Platelet mean volume (Bld) [Entitic vol] 10.3 fL Normal 9.5-13.5 [facility] Comment on above: Performed By: #### P OCGLUC #### [facility] [address] [address] [address] Saskia Lai PLT 208 103/ul Normal 150-450 [facility] Comment on above: Performed By: #### P OCGLUC #### [facility] [address] [address] [address] Saskia Lai RBC 3.91 106/ul Critically low 4.70-6.10 [facility] Comment on above: Performed By: #### P OCGLUC #### [facility] [address] [address] [address] Saskia Lai WBC 14.9 103/ul Critically high 4.0-11.0 [facility] Comment on above: Performed By: #### P OCGLUC #### [facility] [address] [address] [address] Saskia Lai PROF CHEM 8 (BAS METB)on Anion gap [Moles/Vol] 10.7 mmol/L Normal Th [facility] Comment on above: Performed By: #### B MP #### [facility] [address] [address] [address] Saskia Lai Calcium [Mass/Vol] 8.9 mg/dL Normal 8.5-10.1 [facility] Comment on above: Performed By: #### B MP #### [facility] [address] [address] [address] Saskia Lai Chloride [Moles/Vol] 101 mmol/L Normal 98-107 [facility] Comment on above: Performed By: #### B MP #### [facility] [address] [address] [address] Saskai Lai CO2 [Moles/Vol] 27.9 mmol/L Normal 21.0-32.0 [facility] Comment on above: Performed By: #### B MP #### [facility] [address] [address] [address] Saskia Lai Creatinine [Mass/Vol] 1.17 mg/dL Normal 0.70-1.30 [facility] Comment on above: Performed By: #### B MP #### [facility] [address] [place] [address] Dr. Saskia Lai EGFR-AF TUVALUAN >60 Normal >=60 [facility] Comment on above: Performed By: #### B MP #### [facility] [address] [place] [address] Dr. Saskia Lai EGFR-NON AF TUVALUAN >60 Normal >=60 [facility] Comment on above: Performed By: #### B MP #### [facility] [address] [place] [address] Dr. Saskia Lai Glucose [Mass/Vol] 121 mg/dL Critically high 74-106 [facility] Comment on above: Performed By: #### B MP #### [facility] [address] [place] [address] Dr. Saskia Lai Potassium [Moles/Vol] 4.5 mmol/L Normal 3.5-5.1 [facility] Comment on above: Performed By: #### B MP #### [facility] [address] [place] [address] Dr. Saskia Lai Sodium [Moles/Vol] 135 mmol/L Critically low 136-145 [facility] Comment on above: Performed By: #### B MP #### [facility] [address] [place] [address] Dr. Saskia Lai Urea nitrogen [Mass/Vol] 30.0 mg/dL Critically high 7.0-18.0 [facility] Comment on above: Performed By: #### B MP #### [facility] [address] [place] [address] Dr. Saskia Lai Urea nitrogen/Creatinine [Mass ratio] 25.6 mg/mg Normal [facility] Comment on above: Performed By: #### B MP #### [facility] [address] [place] [address] Dr. Saskia Lai PROTIMEon 01-07-2022 INR Coag (PPP) [Relative time] 1.21 {INR} Normal [facility] Comment on above: Performed By: #### P T #### [facility] [address] [place] [address] Dr. Saskia Lai INR GUIDELINES SEE BELOW Normal [facility] Comment on above: Result Comment: GABI RED INR: 2.0 - 3.0 CONDITIONS NOT LISTED BELOW 2.5 - 3.5 FOR PROSTHETIC HEART VALVE REPLACEMENT 2.5 - 3.5 RECURRENT THROMBOSIS Performed By: #### P T #### [facility] [address] [place] [address] Dr. Saskia Lai PT Coag (PPP) [Time] 12.9 s Critically high 9.0-11.[address] [facility] Comment on above: Performed By: #### P T #### [facility] [address] [place] [address] Dr. Saskia Lai POINT OF CARE GLUCOSEon 12-09 Glucose [Mass/Vol] 114 mg/dL Critically high 74-106 T [facility] Comment on above: Performed By: #### P OCGLUC #### [facility] [address] [place] [address] Dr. Saskia Lai Glucose [Mass/Vol] 104 mg/dL Normal 74-[address] [facility] Comment on above: Performed By: #### P OCGLUC #### [facility] [address] [place] [address] Dr. Saskia Lai PROTIMEon 01-06-2022 INR Coag (PPP) [Relative time] 1.19 {INR} Normal [facility] Comment on above: Performed By: #### P T #### [facility] [address] [place] [address] Dr. Saskia Lai INR GUIDELINES SEE BELOW Normal The [facility] Comment on above: Result Comment: GABI RED INR: 2.0 - 3.0 CONDITIONS NOT LISTED BELOW 2.5 - 3.5 FOR PROSTHETIC HEART VALVE REPLACEMENT 2.5 - 3.5 RECURRENT THROMBOSIS Performed By: #### P T #### [facility] [address] [address] [address] Saskia Lai PT Coag (PPP) [Time] 12.7 s Critically high 9.0-11.6 [facility] Comment on above: Performed By: #### P T #### [facility] [address] [place] [address] Dr. Saskia Lai Covid-19 PCR ([facility])on 12-08 SARS-CoV-2 (COVID-19) RNA TOSHA+probe Ql (Unsp spec) Not detected Normal NOT DETECTED [facility] Comment on above: Result Comment: This test is not yet approved or cleared by the [place] FDA. When there are no FDA-approved or cleared tests available, and other criteria are met, FDA can make tests available under an emergency access mechanism called an Emergency Use Authorization (EUA). The EUA for this test is supported by the Special Needs Babysitter of Health and Human Service's (HHS's) declaration [...] SARS-CoV-2. Performed By: #### C VDTBH #### [facility] [address] [place] [address] Dr. Saskia Lai CBC AUTO DIFFon 12-24-2021 BASO # 0.1 103/ul Normal 0.0-0.1 [facility] Comment on above: Performed By: #### C VDTBH #### [facility] [address] [place] [address] Dr. Saskia Lai Basophils/100 WBC (Bld) 1.2 % Normal 0.2-2.[address] [facility] Comment on above: Performed By: #### C VDTBH #### [facility] [address] [place] [address] Dr. Saskia Lai EO # 0.2 103/ul Normal 0.0-0.7 [facility] Comment on above: Performed By: #### C VDTBH #### [facility] [address] [place] [address] Dr. Saskia Lai Eosinophils/100 WBC (Bld) 2.8 % Normal 0.9-7.0 [facility] Comment on above: Performed By: #### C VDTBH #### [facility] [address] [place] [address] Dr. Saskia Lai Erythrocyte distribution width (RBC) [Ratio] 14.4 % Normal 11.0-15.0 [facility] Comment on above: Performed By: #### C VDTBH #### [facility] [address] [place] [address] Dr. Saskia Lai Hematocrit (Bld) [Volume fraction] 40.5 % Critically low 42.0-54.0 [facility] Comment on above: Performed By: #### C VDTBH #### [facility] [address] [place] [address] Dr. Saskia Lai Hemoglobin (Bld) [Mass/Vol] 13.4 g/dL Critically low 14.0-18.0 [facility] Comment on above: Performed By: #### C VDTBH #### [facility] [address] [place] [address] Dr. Saskia Lai IG # 0.00 10e3/ul Normal 0.00-0.[address] [facility] Comment on above: Performed By: #### C VDTBH #### [facility] [address] [address] [address] Saskia Lai IG % 0.0 % Normal 0.0-0.5 [facility] Comment on above: Performed By: #### C VDTBH #### [facility] [address] [place] [address] Dr. Saskia Lai LYMPH # 1.1 103/ul Critically low 1.2-3.8 [facility] Comment on above: Performed By: #### C VDTBH #### [facility] [address] [place] [address] Dr. Saskia Lai Lymphocytes/100 WBC (Bld) 19.5 % Critically low 20.5-60.0 [facility] Comment on above: Performed By: #### C VDTBH #### [facility] [address] [place] [address] Dr. Saskia Lai MANUAL DIFF REQ NO Normal [facility] Comment on above: Performed By: #### C VDTBH #### [facility] [address] [place] [address] Dr. Saskia Lai MCH (RBC) [Entitic mass] 29.6 pg Normal 25.9-34.0 [facility] Comment on above: Performed By: #### C VDTBH #### [facility] [address] [place] [address] Dr. Saskia Lai MCHC (RBC) [Mass/Vol] 33.1 g/dL Normal 29.9-35.[address] [facility] Comment on above: Performed By: #### C VDTBH #### [facility] [address] [place] [address] Dr. Saskia Lai MCV (RBC) [Entitic vol] 89.4 fL Normal 80.0-94.0 [facility] Comment on above: Performed By: #### C VDTBH #### [facility] [address] [place] [address] Dr. Saskia Lai MONO # 0.4 103/ul Normal 0.3-0.8 [facility] Comment on above: Performed By: #### C VDTBH #### [facility] [address] [address] [address] Saskia Lai Monocytes/100 WBC (Bld) 6.7 % Normal 1.7-12.0 [facility] Comment on above: Performed By: #### C VDTBH #### [facility] [address] [address] [address] Saskia Lai NEUT # 4.0 103/ul Normal 1.4-6.5 [facility] Comment on above: Performed By: #### C VDTBH #### [facility] [address] [place] [address] Dr. Saskia Lai Neutrophils/100 WBC (Bld) 69.8 % Normal 43.0-75.0 [facility] Comment on above: Performed By: #### C VDTBH #### [facility] [address] [place] [address] Dr. Saskia Lai Platelet mean volume (Bld) [Entitic vol] 9.9 fL Normal 9.5-13.5 [facility] Comment on above: Performed By: #### C VDTBH #### [facility] [address] [place] [address] Dr. Saskia Lai PLT 228 103/ul Normal 150-[address] [facility] Comment on above: Performed By: #### C VDTBH #### [facility] [address] [place] [address] Dr. Saskia Lai RBC 4.53 106/ul Critically low 4.70-6.[address] [facility] Comment on above: Performed By: #### C VDTBH #### [facility] [address] [place] [address] Dr. Saskia Lai WBC 5.7 103/ul Normal 4.0-11.[address] [facility] Comment on above: Performed By: #### C VDTBH #### [facility] [address] [place] [address] Dr. Saskia Lai PROF CHEM 8 (BAS METB)on Anion gap [Moles/Vol] 11.0 mmol/L Normal Th e [facility] Comment on above: Performed By: #### P OCGLUC #### [facility] [address] [address] [address] Saskia Lai Calcium [Mass/Vol] 9.3 mg/dL Normal 8.5-10.1 [facility] Comment on above: Performed By: #### P OCGLUC #### [facility] [address] [address] [address] Saskia Lai Chloride [Moles/Vol] 102 mmol/L Normal 98-107 [facility] Comment on above: Performed By: #### P OCGLUC #### [facility] [address] [address] [address] Saskia Lai CO2 [Moles/Vol] 29.5 mmol/L Normal 21.0-32.0 [facility] Comment on above: Performed By: #### P OCGLUC #### [facility] [address] [place] [address] Dr. Saskia Lai Creatinine [Mass/Vol] 0.93 mg/dL Normal 0.70-1.30 [facility] Comment on above: Performed By: #### P OCGLUC #### [facility] [address] [place] [address] Dr. Saskia Lai EGFR-AF TUVALUAN >60 Normal >=60 [facility] Comment on above: Performed By: #### P OCGLUC #### [facility] [address] [address] [address] Saskia Lai EGFR-NON AF TUVALUAN >60 Normal >=[address] [facility] Comment on above: Performed By: #### P OCGLUC #### [facility] [address] [address] [address] Saskia Lai Glucose [Mass/Vol] 97 mg/dL Normal 74-[address] [facility] Comment on above: Performed By: #### P OCGLUC #### [facility] [address] [place] [address] Dr. Saskia Lai Potassium [Moles/Vol] 4.5 mmol/L Normal 3.5-5.1 [facility] Comment on above: Performed By: #### P OCGLUC #### [facility] [address] [address] [address] Saskia Lai Sodium [Moles/Vol] 138 mmol/L Normal 136-145 [facility] Comment on above: Performed By: #### P OCGLUC #### [facility] [address] [address] [address] Saskia Lai Urea nitrogen [Mass/Vol] 15.0 mg/dL Normal 7.0-18.0 [facility] Comment on above: Performed By: #### P OCGLUC #### [facility] [address] [place] [address] Dr. Saskia Lai Urea nitrogen/Creatinine [Mass ratio] 16.1 mg/mg Normal [facility] Comment on above: Performed By: #### P OCGLUC #### [facility] [address] [place] [address] Dr. Saskia Lai PROTIMEon 12-24-2021 INR Coag (PPP) [Relative time] 2.00 {INR} Normal [facility] Comment on above: Performed By: #### P T, PTT #### [facility] [address] [place] [address] Dr. Saskia Lai INR GUIDELINES SEE BELOW Normal [facility] Comment on above: Result Comment: GABI RED INR: 2.0 - 3.0 CONDITIONS NOT LISTED BELOW 2.5 - 3.5 FOR PROSTHETIC HEART VALVE REPLACEMENT 2.5 - 3.5 RECURRENT THROMBOSIS Performed By: #### P T, PTT #### [facility] [address] [place] [address] Dr. Saskia Lai PT Coag (PPP) [Time] 20.6 s Critically high 9.0-11.6 [facility] Comment on above: Performed By: #### P T, PTT #### [facility] [address] [place] [address] Dr. Saskia Lai PTTon 12-24-2021 aPTT Coag (Bld) [Time] 33.5 s Normal 22.3-36.[address] [facility] Comment on above: Performed By: #### P T, PTT #### [facility] [address] [address] [address] CHEST W CONon [...] GERARDO AUGUSTIN Date: 2021-10-23 17:42 Normal [address] [facility] PROF CHEM 8 (BAS METB)on Anion gap [Moles/Vol] 14.4 mmol/L Normal [facility] Comment on above: Performed By: #### P OCGLUC #### [facility] [address] [address] [address] Saskia Lai Calcium [Mass/Vol] 9.1 mg/dL Normal 8.5-10.1 [facility] Comment on above: Performed By: #### P OCGLUC #### [facility] [address] [address] [address] Saskia Lai Chloride [Moles/Vol] 102 mmol/L Normal 98-107 [facility] Comment on above: Performed By: #### P OCGLUC #### [facility] [address] [address] [address] Saskia Lai CO2 [Moles/Vol] 25.1 mmol/L Normal 21.0-32.0 [facility] Comment on above: Performed By: #### P OCGLUC #### [facility] [address] [address] [address] Saskia Lai Creatinine [Mass/Vol] 1.13 mg/dL Normal 0.70-1.30 [facility] Comment on above: Performed By: #### P OCGLUC #### [facility] [address] [address] [address] Saskia Lai EGFR-AF TUVALUAN >60 Normal >=[address] [facility] Comment on above: Performed By: #### P OCGLUC #### [facility] [address] [address] [address] Saskia Lai EGFR-NON AF TUVALUAN >60 Normal >=60 [facility] Comment on above: Performed By: #### P OCGLUC #### [facility] [address] [address] [address] Saskia Lai Glucose [Mass/Vol] 82 mg/dL Normal 74-[address] [facility] Comment on above: Performed By: #### P OCGLUC #### [facility] [address] [address] [address] Saskia Lai Potassium [Moles/Vol] 4.5 mmol/L Normal 3.5-5.[address] [facility] Comment on above: Performed By: #### P OCGLUC #### [facility] [address] [address] [address] Saskia Lai Sodium [Moles/Vol] 137 mmol/L Normal 136-[address] [facility] Comment on above: Performed By: #### P OCGLUC #### [facility] [address] [address] [address] Saskia Lai Urea nitrogen [Mass/Vol] 19.0 mg/dL Critically high 7.0-18.0 [facility] Comment on above: Performed By: #### P OCGLUC #### [facility] [address] [address] [address] Saskia Lai Urea nitrogen/Creatinine [Mass ratio] 16.8 mg/mg Normal [facility] Comment on above: Performed By: #### P OCGLUC #### [facility] [address] [address] [address] Saskia Hurley 08-12-2021 CNMARIUM Office Visit (LOORRM ) -- REMI ZARCO ([id number]) 1945 M Date Time Provider Department 08/12/21 [...] (HCC) [M87.9] (more content not included)... Normal [facility] CNPNon 08-01-2021 [facility] REMI ZAR[facility] ([id number]) 1945 M Date Time Provider Department 08/01/21 DARREL ALMENDAREZ During your visit today, we recorded the following information about you: Abilio Diaz 08/01/2021 8:47 AM Signed Pt called, wanted to know if Dr Almendarez or nurse could reach out to further advise of treatment plan. Pt states he was to hear back shortly after visit on 07/10. Abilio Monge, CT 08/06/2021 1:59 PM Addendum Called [...] hurt Date Reviewed: 07/10/2021 Reviewed by: Darrel Bria, DPM - Fully Assessed Reason for Visit: Patient Question [6747] Patient Update [8174] Prescriptions as of 08/06/2021 - warfarin (COUMADIN) [...] Encounter Status:Closed by ABILIO BULLARD on 08/01/21 Normal [facility] CNOVon 07-10-2021 CNOV [facility] -- REMI ZARCO ([id number]) 1945 M Date Time Provider Department 07/10/21 [...] Referring Pro (more content not included)... Normal [facility] XR ANKLE 3V AP/LAT/OBL LTon 07-10-2021 [...] enthesophyte is seen IMPRESSION: Please see result [employer] Analyst: [place] Transcribe Date/Time: Jul 10 2021 1:13P Dictated by : MIRNA WRIGHT MD This examination was interpreted and the report reviewed and electronically signed by: MIRNA WRIGHT MD on Jul 10 2021 1:14PM EST [id number] Normal [facility] XR ANKLE GENERAL 3V AP/LAT/O BL LEFTon 07-10-2021 [facility] XR FOOT 3V AP/LAT/OBL LTon 0 07-10-2021 [...] formation is seen IMPRESSION: Please see result [employer] Analyst: PSCB Transcribe Date/Time: Jul 12 2021 11:11A Dictated by : MIRNA WRIGHT MD This examination was interpreted and the report reviewed and electronically signed by: MIRNA WRIGHT MD on Jul 12 2021 11:12AM EST [id number] Normal [facility] CNOVon 06-14-2021 CNOV Office Visit ([facility] ) -- REMI ZARCO ([id number]) 1945 M Date Time Provider Department 06/14/21 1:30 PM MANUEL SAUCEDO During your visit today, we recorded the following information about you: Manuel Saucedo DPM 06/14/2021 1:59 PM Signed [facility] Department of Orthopedics [facility] Orthopedic Surgery Name: Remi Zarco Date [...] brought in radiographs and a CT from [place] which demonstrate a valgus tilt of the [...] fix heis shoulder before he left for [place]. Discussed Dr. Torres but he does not want to drive to [place]. Suggested he see Dr. Almendarez to discuss [...] Diagnoses:Ankle instabilit (more content not included)... Normal [facility] Vital Signs Date Time Vital Sign Value Performing Clinician Facility 09-22-2024 08:30-0400 Body height 182.9 cm Adilia Multani DPM Work Phone: [facility] 09-22-2024 08:30-0400 Body mass index (BMI) [Ratio] 30.92 kg/m2 Adilia Multani DPM Work Phone: [facility] 09-22-2024 08:30-0400 Body weight 103.42 kg Adilia Multani DPM Work Phone: [facility] 07-18-2024 11:00-0400 Body height 182.9 cm Gil Gee MD [facility] [facility] 07-18-2024 11:00-0400 Body mass index (BMI) [Ratio] 30.92 kg/m2 Gil Gee MD Work Phone: [facility] 07-18-2024 11:00-0400 Body temperature 97.5 [degF] Gil Gee MD Work Phone: [facility] 07-18-2024 11:00-0400 Body weight 103.42 kg Gil Gee MD Work Phone: [facility] 07-18-2024 11:00-0400 Diastolic blood pressure 68 mm[Hg] Gil Gee MD Work Phone: [facility] 07-18-2024 11:00-0400 Heart rate 62 /min Gil Gee MD Work Phone: [facility] 07-18-2024 11:00-0400 Respiratory rate 18 /min Gil Gee MD Work Phone: [facility] 07-18-2024 11:00-0400 SaO2% (BldA) [Mass fraction] 97 % Gil Gee MD Work Phone: [facility] 07-18-2024 11:00-0400 Systolic blood pressure 122 mm[Hg] Gil Gee MD Work Phone: [facility] 06-20-2024 09:56-0400 Body height 182.9 cm Vincent Ching MD Work Phone: [facility] 06-20-2024 09:56-0400 Body mass index (BMI) [Ratio] 31.25 kg/m2 Vincent Ching MD Work Phone: [facility] 06-20-2024 09:56-0400 Body weight 104.51 kg Vincent Ching MD Work Phone: [facility] 06-20-2024 09:56-0400 Diastolic blood pressure 82 mm[Hg] Vincent Ching MD Work Phone: [facility] 06-20-2024 09:56-0400 Heart rate 45 /min Vincent Ching MD Work Phone: [facility] 06-20-2024 09:56-0400 SaO2% (BldA) [Mass fraction] 97 % Vincent Ching MD Work Phone: [facility] 06-20-2024 09:56-0400 Systolic blood pressure 134 mm[Hg] Vincent Ching MD Work Phone: [facility] 03-24-2024 13:04-0500 Body height 182.9 cm Adilia Multani DPM Work Phone: [facility] 03-24-2024 13:04-0500 Body mass index (BMI) [Ratio] 31.87 kg/m2 Adilia Multani DPM Work Phone: [facility] 03-24-2024 13:04-0500 Body weight 106.59 kg Adilia Rangel DPM Work Phone: [facility] 03-22-2024 10:26-0500 Body height 182.9 cm Nancy Mici PA-C Work Phone: [facility] 03-22-2024 10:26-0500 Body mass index (BMI) [Ratio] 31.87 kg/m2 Nancy Mici PA-C Work Phone: [facility] 03-22-2024 10:26-0500 Body weight 106.59 kg Nancy Mici PA-C Work Phone: [facility] 03-22-2024 10:26-0500 Diastolic blood pressure 82 mm[Hg] Nancy Mici PA-C Work Phone: [facility] 03-22-2024 10:26-0500 Heart rate 62 /min Nancy Mici PA-C Work Phone: [facility] 03-22-2024 10:26-0500 SaO2% (BldA) [Mass fraction] 97 % Nancy Mici PA-C Work Phone: [facility] 03-22-2024 10:26-0500 Systolic blood pressure 134 mm[Hg] Nancy Mici PA-C Work Phone: [facility] 03-21-2024 08:56-0500 Body height 182.9 cm Gil Gee MD Work Phone: [facility] 03-21-2024 08:56-0500 Body mass index (BMI) [Ratio] 31.74 kg/m2 Gil Gee MD Work Phone: [facility] 03-21-2024 08:56-0500 Body temperature 97.81 [degF] Gil Gee MD Work Phone: [facility] 03-21-2024 08:56-0500 Body weight 106.14 kg Gil Gee MD Work Phone: [facility] 03-21-2024 08:56-0500 Diastolic blood pressure 60 mm[Hg] Gil Gee MD Work Phone: [facility] 03-21-2024 08:56-0500 Heart rate 92 /min Gil Gee MD Work Phone: [facility] 03-21-2024 08:56-0500 Respiratory rate 18 /min Gil Gee MD Work Phone: [facility] 03-21-2024 08:56-0500 SaO2% (BldA) [Mass fraction] 98 % Gil Gee MD Work Phone: [facility] 03-21-2024 08:56-0500 Systolic blood pressure 134 mm[Hg] Gil Gee MD Work Phone: [facility] 02-29-2024 13:28-0500 Body mass index (BMI) [Ratio] 31.86 kg/m2 Edgard Villa APRN-PR SPECIALIST Work Phone: [facility] 02-29-2024 13:28-0500 Body temperature 97 [degF] Edgard Villa FORENSIC SPECIALIST-PR SPECIALIST Work Phone: [facility] 02-29-2024 13:28-0500 Body weight 106.59 kg Edgard Villa FORENSIC SPECIALIST-PR SPECIALIST Work Phone: [facility] 02-29-2024 13:28-0500 Diastolic blood pressure 64 mm[Hg] Edgard Villa FORENSIC SPECIALIST-PR SPECIALIST Work Phone: [facility] 02-29-2024 13:28-0500 Heart rate 83 /min Edgard Villa FORENSIC SPECIALIST-PR SPECIALIST Work Phone: [facility] 02-29-2024 13:28-0500 Respiratory rate 18 /min Edgard Villa FORENSIC SPECIALIST-PR SPECIALIST Work Phone: [facility] 02-29-2024 13:28-0500 SaO2% (BldA) [Mass fraction] 96 % Edgard Villa FORENSIC SPECIALIST-PR SPECIALIST Work Phone: [facility] 02-29-2024 13:28-0500 Systolic blood pressure 126 mm[Hg] Edgard Villa FORENSIC SPECIALIST-PR SPECIALIST Work Phone: [facility] 01-29-2024 13:03-0500 Body height 182.9 cm Grace Gee MD Work Phone: [facility] 01-29-2024 13:03-0500 Body mass index (BMI) [Ratio] 31.71 kg/m2 Grace Gee MD Work Phone: [facility] 01-29-2024 13:03-0500 Body weight 106.05 kg Grace Gee MD Work Phone: [facility] 01-29-2024 13:03-0500 Diastolic blood pressure 82 mm[Hg] Grace Gee MD Work Phone: [facility] 01-29-2024 13:03-0500 Heart rate 88 /min Grace Gee MD Work Phone: [facility] 01-29-2024 13:03-0500 SaO2% (BldA) [Mass fraction] 97 % Grace Gee MD Work Phone: [facility] 01-29-2024 13:03-0500 Systolic blood pressure 138 mm[Hg] Grace Gee MD Work Phone: [facility] 01-18-2024 10:29-0500 Body height 182.9 cm Gil Gee MD Work Phone: [facility] 01-18-2024 10:29-0500 Body mass index (BMI) [Ratio] 31.46 kg/m2 Gil Gee MD Work Phone: [facility] 01-18-2024 10:29-0500 Body temperature 97.81 [degF] Gil Gee MD Work Phone: [facility] 01-18-2024 10:29-0500 Body weight 105.23 kg Gil Gee MD Work Phone: [facility] 01-18-2024 10:29-0500 Diastolic blood pressure 60 mm[Hg] Gil Gee MD Work Phone: [facility] 01-18-2024 10:29-0500 Heart rate 71 /min Gil Gee MD Work Phone: [facility] 01-18-2024 10:29-0500 Respiratory rate 20 /min Gil Gee MD Work Phone: [facility] 01-18-2024 10:29-0500 SaO2% (BldA) [Mass fraction] 97 % Gil Gee MD Work Phone: [facility] 01-18-2024 10:29-0500 Systolic blood pressure 116 mm[Hg] Gil Gee MD Work Phone: [facility] 10-28-2023 10:45-0400 Body height 185.4 cm Gil Gee MD Work Phone: [facility] 10-28-2023 10:45-0400 Body mass index (BMI) [Ratio] 30.34 kg/m2 Gil Gee MD Work Phone: [facility] 10-28-2023 10:45-0400 Body temperature 97.7 [degF] Gil Gee MD Work Phone: [facility] 10-28-2023 10:45-0400 Body weight 104.33 kg Gil Gee MD Work Phone: [facility] 10-28-2023 10:45-0400 Diastolic blood pressure 88 mm[Hg] Gil Gee MD Work Phone: [facility] 10-28-2023 10:45-0400 Heart rate 58 /min Gil Gee MD Work Phone: [facility] Comment on above: 98% O2 10-28-2023 10:45-0400 Systolic blood pressure 140 mm[Hg] Gil Gee MD Work Phone: [facility] 02-24-2023 15:43-0500 Diastolic blood pressure 81 mm[Hg] MD Gil Gee Work Phone: [facility] 02-24-2023 15:43-0500 Heart rate 59 /min MD Gil Gee Work Phone: [facility] 02-24-2023 15:43-0500 Respiratory rate 16 /min MD Gil Gee Work Phone: [facility] 02-24-2023 15:43-0500 SaO2% (BldA) [Mass fraction] 95 % MD Gil Gee Work Phone: [facility] 02-24-2023 15:43-0500 Systolic blood pressure 148 mm[Hg] MD Gil Gee Work Phone: [facility] 02-24-2023 14:07-0500 Body temperature 97.3 [degF] MD Gil Gee Work Phone: [facility] 02-24-2023 14:07-0500 Inhaled oxygen flow rate 6 L/min MD Gil Gee Work Phone: [facility] 02-24-2023 12:55-0500 Body height 185.42 cm MD Gil Gee Work Phone: [facility] 02-24-2023 12:55-0500 Body mass index (BMI) [Ratio] 30.7 kg/m2 MD Gil Gee Work Phone: [facility] 02-24-2023 12:55-0500 Body weight 105.5 kg MD Gil Gee Work Phone: [facility] 11-09-2022 12:05-0400 Body height 182.88 cm Yolanda Lizbet Other [employer] Other 11-09-2022 12:05-0400 Body mass index (BMI) [Ratio] 31.08 kg/m2 Yolanda Lizbet Other [employer] Other 11-09-2022 12:05-0400 Body temperature 98.6 [degF] Yolanda Lizbet Other [employer] Other 11-09-2022 12:05-0400 Body weight 103.97 kg Yolanda Lizbet Other [employer] Other 11-09-2022 12:05-0400 Diastolic blood pressure 75 mm[Hg] Yolanda Lizbet Other [employer] Other 11-09-2022 12:05-0400 Respiratory rate 18 /min Yolanda Lizbet Other [employer] Other 11-09-2022 12:05-0400 SaO2% (BldA) [Mass fraction] 97 % Yolanda Lizbet Other [employer] Other 11-09-2022 12:05-0400 Systolic blood pressure 161 mm[Hg] Yolandaaleksey Somers Other [employer] Other Encounters Encounter Date Encounter Type Care Provider Facility Start: 11-15-2024 End: 11-15-2024 Refill Mag Olmstead RN [facility] Comment on above: Med Refill Start: 11-11-2024 End: 11-11-2024 ambulatory [facility] Start: 11-11-2024 End: 11-11-2024 Follow-up encounter Darrel Rangel MD Work Phone: [facility] Medication Management Comment on above: Persistent atrial fi brillation (CMS-HCC) (Primary Dx); nursing home (current) use of anticoagulants; Anticoagulated on Coumadin Start: 09-22-2024 End: 09-22-2024 Bamboo flowsheet Adilia Multani DPM Work Phone: [facility] Start: 09-22-2024 End: 09-22-2024 Bamboo flowsheet Adilia Multani DPM Work Phone: [facility] Start: 09-22-2024 End: 09-22-2024 Patient encounter procedure Adilia Multani DPM Work Phone: [facility] Comment on above: Onychomycosis (Prima ry Dx) Start: 09-22-2024 End: 09-22-2024 ambulatory ADILIA MULTANI Not Available Start: 09-16-2024 End: 09-16-2024 ambulatory [facility] MEDICATION [facility]NAG[facility] Start: 09-16-2024 End: 09-16-2024 Follow-up encounter Darrel Rangel MD Work Phone: [facility] Medication Management Comment on above: Persistent atrial fi brillation (CMS-HCC) (Primary Dx); nursing home (current) use of anticoagulants; Anticoagulated on Coumadin Start: 09-15-2024 End: 09-19-2024 Clinisync Result Encounter Generic External Data Provider [facility] External Department Unsolicited Start: 09-15-2024 End: 09-19-2024 Clinisync Result Encounter Generic External Data Provider [facility] External Department Unsolicited Start: 09-12-2024 End: 09-14-2024 Clinisync Result Encounter Generic External Data Provider [facility] External Department Unsolicited Start: 09-12-2024 End: 09-14-2024 Clinisync Result Encounter Generic External Data Provider [facility] External Department Unsolicited Start: 08-19-2024 End: 08-22-2024 Clinisync Result Encounter Gil Gee MD Work Phone: [facility] External Department Unsolicited Start: 08-19-2024 End: 08-22-2024 Clinisync Result Encounter Gil Gee MD Work Phone: [facility] External Department Unsolicited Start: 08-18-2024 End: 08-18-2024 Telephone encounter Mag lOmstead RN [facility] Comment on above: medication question Start: 08-10-2024 End: 08-10-2024 [facility] Start: 07-29-2024 End: 07-29-2024 [facility] Start: 07-26-2024 End: 07-26-2024 Bamboo flowsjada Garcia MD Work Phone: [facility] Start: 07-26-2024 End: 07-26-2024 Bampatricko bishnu Garcia MD Work Phone: [facility] Start: 07-26-2024 End: 07-26-2024 Office outpatient visit 15 minutes Suman Garcia MD Work Phone: [facility] Comment on above: Seborrheic keratosis (Primary Dx); Actinic keratosis; Melanocytic nevus of trunk; Lentigines; Angioma of skin; Skin tag; History of basal cell carcinoma Start: 07-26-2024 End: 07-26-2024 ambulatory SUMAN GARCIA Not Available Start: 07-21-2024 End: 07-21-2024 Clinisync Result Encounter Generic External Data Provider [facility] External Department Unsolicited Start: 07-21-2024 End: 07-21-2024 Clinisync Result Encounter Generic External Data Provider [facility] External Department Unsolicited Start: 07-18-2024 End: 07-18-2024 Bamboo flowsheet Gil Gee MD Work Phone: [facility] Start: 07-18-2024 End: 07-18-2024 Bamboo flowsheet Gil Gee MD Work Phone: [facility] Start: 07-18-2024 End: 07-18-2024 Clinisync Result Encounter Gil Gee MD Work Phone: [facility] External Department Unsolicited Start: 07-18-2024 End: 07-18-2024 Office outpatient visit 25 minutes Gil Gee MD Work Phone: [facility] Comment on above: Benign hypertension (CMS/HCC) (Primary Dx); Chronic HFrEF (heart failure with reduced ejection fraction) (CMS/HCC); Persistent atrial fibrillation (HCC) (CMS/HCC); Osteoarthritis, generalized; 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) Start: 07-18-2024 End: 07-18-2024 ambulatory GIL GEE Not Available Start: 07-15-2024 End: 07-15-2024 ambulatory [facility] MEDICATION MANAGEMENT [facility] Start: 07-15-2024 End: 07-15-2024 Follow-up encounter Darrel Rangel MD Work Phone: [facility] Medication Management Comment on above: Persistent atrial fi brillation (CMS-HCC) (Primary Dx); veneer taper (current) use of anticoagulants; Anticoagulated on Coumadin Start: 07-14-2024 End: 07-14-2024 Clinisync Result Encounter Generic External Data Provider [facility] External Department Unsolicited Start: 07-14-2024 End: 07-14-2024 Clinisync Result Encounter Generic External Data Provider [facility] External Department Unsolicited Start: 07-13-2024 End: 07-13-2024 ambulatory VINCENT CHING [facility] Start: 06-20-2024 End: 06-20-2024 Office outpatient visit 25 minutes Vincent Ching MD Work Phone: [facility] Comment on above: Ischemic cardiomyopa thy (Primary Dx) Start: 06-20-2024 End: 06-20-2024 ambulatory [facility] Start: 06-17-2024 End: 06-17-2024 Telephone encounter Haylie Plasencia [facility] Physician s Cardiology Start: 06-16-2024 End: 06-19-2024 Clinisync Result Encounter Gil Gee MD Work Phone: [facility] External Department Unsolicited Start: 06-16-2024 End: 06-19-2024 Clinisync Result Encounter Gil Gee MD Work Phone: [facility] External Department Unsolicited Start: 06-13-2024 End: 06-13-2024 Telephone encounter [facility] Medication Management Work Phone: [facility] Medication Management Comment on above: Med Refill Start: 06-10-2024 End: 06-10-2024 ambulatory [facility] Start: 05-27-2024 End: 05-27-2024 ambulatory [facility] MEDICATION MANAGEMENT [facility] Start: 05-27-2024 End: 05-27-2024 Follow-up encounter Darrel Rangel MD Work Phone: [facility] Medication Management Comment on above: Persistent atrial fi brillation (CMS-HCC) (Primary Dx); veneer taper (current) use of anticoagulants; Anticoagulated on Coumadin Start: 05-25-2024 End: 05-25-2024 ambulatory SHAJI VALDEZ Not Available Start: 05-20-2024 End: 06-04-2024 Clinisync Result Encounter Gil Gee MD Work Phone: [facility] External Department Unsolicited Start: 05-20-2024 End: 06-04-2024 Clinisync Result Encounter Gil Gee MD Work Phone: [facility] External Department Unsolicited Start: 05-19-2024 End: 05-19-2024 Orders Only Gil Gee MD Work Phone: [facility] Comment on above: Adult hypothyroidism (CMS/HCC) (Primary Dx) Start: 05-18-2024 End: 05-18-2024 [facility]ill [facility] Comment on above: Med Refill Start: 05-16-2024 End: 05-16-2024 Refill Brina [facility]add[facility] Comment on above: Med Refill Start: 05-06-2024 End: 05-06-2024 Telephone encounter Kanwal Langston RN [facility] Start: 05-06-2024 End: 05-06-2024 ambulatory [facility] Start: 04-08-2024 End: 04-08-2024 ambulatory [facility] MEDICATION MANAG[facility] Start: 04-08-2024 End: 04-08-2024 Follow-up encounter Darrel Rangel MD Work Phone: [facility] Medication Therapy Management Comment on above: Persistent atrial fi brillation (CMS-HCC) (Primary Dx); veneer taper (current) use of anticoagulants; Anticoagulated on Coumadin Start: 04-07-2024 End: 04-07-2024 Telephone encounter Charli Stephens [facility] Work Phone: [facility] Medication Therapy Management Start: 03-26-2024 End: 03-28-2024 ambulatory [facility] Start: 03-25-2024 End: 03-28-2024 Telephone encounter Davion [facility] Start: 03-24-2024 End: 03-24-2024 Bamboo flowsheet Adilia Multani DPM Work Phone: [facility] Start: 03-24-2024 End: 03-24-2024 Bamboo flowsheet Adilia Multani DPM Work Phone: [facility] Start: 03-24-2024 End: 03-24-2024 Patient encounter procedure Adilia Fair Multani DPM Work Phone: [facility] Comment on above: Onychomycosis (Prima ry Dx) Start: 03-24-2024 End: 03-24-2024 ambulatory ADILIA Fair MULTANI Not Available Start: 03-22-2024 End: 03-22-2024 [facility] Start: 03-22-2024 End: 03-22-2024 Office outpatient visit 25 minutes [facility] PA-C Work Phone: [facility] Comment on above: Coronary artery dise ase involving [place] coronary artery of [place] heart without angina pectoris (Primary Dx); Persistent atrial fibrillation ([facility]-HCC); Essential hypertension; Chronic heart failure with preserved ejection fraction ([facility]-HCC) Start: 03-22-2024 End: 03-22-2024 Follow-up encounter Darrel Rangel MD Work Phone: [facility] Medication Therapy Management Comment on above: Persistent atrial fi brillation ([facility]-HCC) (Primary Dx); veneer taper (current) use of anticoagulants; Anticoagulated on Coumadin Start: 03-22-2024 End: 03-22-2024 ambulatory [facility] Start: 03-21-2024 End: 03-21-2024 Bamboo flowsheet Gil Gee MD Work Phone: [facility] Start: 03-21-2024 End: 03-21-2024 Bamboo flowsheet Gil Gee MD Work Phone: [facility] Start: 03-21-2024 End: 03-21-2024 Telephone encounter Carolyn Delgado CMA [facility] Start: 03-21-2024 End: 03-21-2024 Office outpatient visit 25 minutes Gil Gee MD Work Phone: [facility] Comment on above: Coronary artery dise ase involving [place] coronary artery of [place] heart without angina pectoris (CMS/HCC) (Primary Dx); Benign hypertension (CMS/HCC); Persistent atrial fibrillation (HCC) (CMS/HCC); Osteoarthritis, generalized; Pulmonary hypertension (CMS/HCC); Chronic HFrEF (heart failure with reduced ejection fraction) (CMS/HCC) Start: 03-21-2024 End: 03-21-2024 ambulatory GIL GEE Not Available Start: 03-11-2024 End: 03-11-2024 ambulatory [facility] Start: 03-10-2024 End: 03-10-2024 Telephone encounter [email or web address] Work Phone: [facility] [email or web address] Medication Therapy Management Start: 03-04-2024 End: 03-04-2024 Documentation procedure [facility] [place] [email or web address] Start: 03-03-2024 End: 03-04-2024 Telephone encounter Raquel Armando RN [facility] Start: 02-29-2024 End: 02-29-2024 Anticoagulant drug monitoring [facility] [email or web address] Medication Therapy Management Comment on above: Persistent atrial fi brillation ([facility]-HCC) (Primary Dx); veneer taper (current) use of anticoagulants; Anticoagulated on Coumadin Start: 02-29-2024 End: 02-29-2024 ambulatory [facility] Start: 02-29-2024 End: 02-29-2024 Postop follow up visit related to original px Edgard Villa APRN-PR SPECIALIST Work Phone: [facility] [place] [email or web address] Comment on above: S/P CABG (coronary a rtery bypass graft) (Primary Dx) Start: 02-29-2024 End: 02-29-2024 [facility] Start: 02-19-2024 End: 02-19-2024 Follow-up encounter Judy Christine [facility] Work Phone: [facility] [email or web address] Medication Therapy Management Comment on above: Essential hypertensi on (Primary Dx); Persistent atrial fibrillation (CMS-HCC); veneer taper (current) use of anticoagulants; Anticoagulated on Coumadin Start: 02-17-2024 End: 02-17-2024 Telephone encounter Yani Fletcher [facility] Tomasa melendez Comment on above: bladder scan Start: 02-15-2024 [facility] Start: 02-15-2024 End: 02-19-2024 Evaluation and management of inpatient [facility] Start: 02-12-2024 End: 02-12-2024 [facility]ulatory [facility] Start: 02-11-2024 End: 02-11-2024 Documentation procedure [facility] Sur[facility] Start: 02-10-2024 End: 02-10-2024 Documentation procedure Yary Ordaz RN [facility] Sur[facility] Start: 02-09-2024 End: 02-09-2024 Telephone encounter [employer] Work Phone: [facility] Medication Therapy Management Comment on above: Aortic dilatation (C MS-HCC) (Primary Dx) Start: 02-09-2024 End: 02-09-2024 [facility] Start: 02-08-2024 End: 02-08-2024 Follow-up encounter Darrel Rangel MD Work Phone: [facility] Medication Therapy Management Comment on above: Essential hypertensi on (Primary Dx); Persistent atrial fibrillation (CMS-HCC); veneer taper (current) use of anticoagulants Start: 02-08-2024 End: 02-08-2024 ambulatory [employer] [facility] Start: 02-03-2024 End: 02-03-2024 ambulatory GRACE GEE [facility] Start: 02-02-2024 End: 02-02-2024 Telephone encounter Becky Mo [facility] Comment on above: cardiac cath Start: 01-29-2024 End: 01-29-2024 ambulatory GRACE GRACESHIRLEYBIN [facility] Start: 01-29-2024 End: 01-29-2024 Office outpatient visit 40 minutes Mc Correia MD Work Phone: [facility] Card[facility] Comment on above: Atrial fibrillation (CMS-HCC) (Primary Dx); Persistent atrial fibrillation (CMS-HCC); Essential hypertension; Shortness of breath; Pulmonary hypertension (CMS-HCC); Left ventricular dysfunction; Anginal equivalent (CMS-HCC); veneer taper (current) use of anticoagulants Start: 01-28-2024 End: 01-28-2024 Telephone encounter Haylie Plasencia [facility] Card[facility] Start: 01-20-2024 End: 01-20-2024 ambulatory BRAD Gurinder GREER [facility] Start: 01-18-2024 End: 01-18-2024 Bamboo Bocomheet Gil Gee MD Work Phone: [facility] Start: 01-18-2024 End: 01-18-2024 Bamboo flowsheet Gil Gee MD Work Phone: [facility] Start: 01-18-2024 End: 01-18-2024 Patient encounter procedure Gil Gee MD Work Phone: [facility] Start: 01-18-2024 End: 01-18-2024 Postop follow up visit related to original px Gil Gee MD Work Phone: [facility] Comment on above: Medicare annual well ness visit, subsequent (Primary Dx); Statin myopathy Start: 01-18-2024 End: 01-18-2024 ambulatory GIL GEE Not Available Start: 01-15-2024 End: 01-15-2024 ambulatory [facility] Start: 01-15-2024 End: 01-15-2024 Follow-up encounter Darrel Rangel MD Work Phone: [facility] Medication Therapy Management Comment on above: Essential hypertensi on (Primary Dx); Persistent atrial fibrillation (CMS-HCC); nursing home (current) use of anticoagulants Start: 12-31-2023 End: 12-31-2023 Telephone encounter Suha Pyle RN [facility] Comment on above: Echo Order Start: 11-20-2023 End: 11-20-2023 ambulatory [facility] Start: 11-20-2023 End: 11-20-2023 Follow-up encounter Darrel Rangel MD Work Phone: [facility]ication Therapy Management Comment on above: Essential hypertensi on (Primary Dx); Persistent atrial fibrillation (CMS-HCC); nursing home (current) use of anticoagulants Start: 10-30-2023 End: 10-30-2023 Follow-up encounter Darrel Rangel MD Work Phone: [facility]ication Therapy Management Comment on above: Essential hypertensi on (Primary Dx); Persistent atrial fibrillation (CMS-HCC); veneer taper (current) use of anticoagulants Start: 10-28-2023 End: 10-28-2023 Bamboo Bocomheet Gil Gee MD Work Phone: [facility] Start: 10-28-2023 End: 10-28-2023 Molecular Imagingheet Gil Gee MD Work Phone: [facility] Start: 10-28-2023 End: 10-28-2023 Office outpatient visit 25 minutes Gil Gee MD Work Phone: [facility] Comment on above: Benign hypertension (CMS/HCC) (Primary Dx); Persistent atrial fibrillation (HCC) (CMS/HCC); Osteoarthritis, generalized; Primary osteoarthritis of left shoulder; Adult hypothyroidism (CMS/HCC); Dyslipidemia (CMS/HCC); Encounter for long-term current use of medication Start: 10-28-2023 End: 10-28-2023 ambulatory GIL GEE Not Available Start: 10-26-2023 End: 10-26-2023 Refill Rika Wilkins LPN [facility] Comment on above: Med Refill Start: 10-26-2023 End: 10-30-2023 Refill Valarie Avina FORENSIC SPECIALIST-PR SPECIALIST Work Phone: [facility] Comment on above: Med Refill Start: 10-07-2023 End: 10-07-2023 Telephone encounter Asuncion Langston MA [facility] Medication Therapy Management Start: 09-02-2023 End: 09-02-2023 Follow-up encounter Darrel Rangel MD Work Phone: [facility] Therapy Management Comment on above: Essential hypertensi on (Primary Dx); Persistent atrial fibrillation (CMS-HCC); nursing home (current) use of anticoagulants Start: 07-10-2023 End: 07-10-2023 Follow-up encounter Darrel Rangel MD Work Phone: [facility] Therapy [facility] Comment on above: Essential hypertensi on (Primary Dx); Persistent atrial fibrillation (CMS-HCC); nursing home (current) use of anticoagulants Start: 05-22-2023 End: 05-22-2023 Follow-up encounter Darrel Rangel MD Work Phone: [facility] Therapy Management Comment on above: Essential hypertensi on (Primary Dx); Persistent atrial fibrillation (CMS-HCC); nursing home (current) use of anticoagulants Start: 04-03-2023 End: 04-03-2023 Follow-up encounter Darrel Rangel MD Work Phone: [facility]ication Therapy Management Comment on above: Essential hypertensi on (Primary Dx); Persistent atrial fibrillation (CMS-HCC); nursing home (current) use of anticoagulants Start: 03-11-2023 Telephone encounter Amberly Alvarado ice Work Phone: [facility] Medication Therapy Management Start: 03-10-2023 Telephone encounter Davion Jackson RN [facility] Comment on above: Cardiac Clearance Start: 02-24-2023 End: 02-24-2023 ambulatory Willie Murjagk Facility:[facility] Start: 02-24-2023 End: 02-24-2023 Admission to same day surgery center MD Gil Gee Work Phone: [facility] [place] Start: 02-24-2023 End: 02-24-2023 ambulatory MD Gil Gee Work Phone: [facility] Work Phone: Start: 02-10-2023 End: 02-10-2023 ambulatory Willie Ross Facility:[facility] Start: 02-10-2023 End: 02-10-2023 ambulatory MD Gil Gee Work Phone: [facility] Work Phone: Start: 02-10-2023 End: 02-10-2023 Patient encounter procedure MD Gil Gee Work Phone: [facility] Work Phone: Start: 11-09-2022 End: 11-09-2022 ambulatory Yolanda Somers Other [employer] Other Start: 11-09-2022 Office outpatient ne w 10 minutes Yolanda Somers [facility] Start: 10-02-2022 Patient encounter status Gil Gee MD Work Phone: [facility] Start: 07-23-[address] GIL GEE [facility] ity:H1 Start: 06-11-2022 End: 06-12-[address] [...] Start: 01-05-2022 Encounter for preprocedural laboratory examination [facility] Start: 01-02-2022 End: 01-03-2022 ambulatory [facility] Facility:H1 Start: 01-02-2022 End: 01-03-2022 Encounter for preprocedural laboratory examination [facility] Facility:H1 Start: 12-27-2021 Encounter for preprocedural cardiovascular examination [facility] Start: 12-27-2021 Encounter for preprocedural laboratory examination [facility] Start: 12-24-2021 End: 12-25-2021 ambulatory [facility] Facility:H1 Start: 12-24-2021 End: 12-25-2021 Encounter for preprocedural cardiovascular examination [facility] Facility:H1 Start: 10-23-2021 End: 10-24-[address] [...] 07-10-2021 Subsequent hospital visit by physician Jonel [facility] Radha Work Phone: Radiology Comment on above: Left ankle pain, uns pecified chronicity [M25.572] Start: 06-14-2021 End: 06-14-2021 Patient encounter procedure Manuel Hastingsert DPM Work Phone: Orthopaedics Comment on above: 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 (Primary Dx); Ankle instability, left; Chronic pain of left ankle Start: 07-13-2017 Patient encounter status Yvonne Jackson RN [facility] Start: 05-12-2013 End: 01-29-2024 Patient encounter status Grace Gee MD Work Phone: [employer] Work Phone: Procedures Date Procedure Procedure Detail Performing Clinician Start: 11-11-2024 Prothrombin time [facility] Work Phone: Start: 09-16-2024 Prothrombin time [facility] Work Phone: Start: 09-15-2024 ITP Generic External Jay a Provider Start: 09-12-2024 ITP Generic External Jay a Provider Start: 08-19-2024 SHRADDHA Gee MD Work Phone: Start: 07-26-2024 CRYOTHERAPY SKIN LESION Suman Garcia MD Work Phone: Start: 07-21-2024 XR FOOT RT MIN 3V Generic External Jay a Provider Start: 07-18-2024 SHRADDHA Gee MD Work Phone: Start: 07-15-2024 Prothrombin time [facility] Work Phone: Start: 07-14-2024 XR ANKLE LT MIN 3V Generic External Jay a Provider Start: 07-14-2024 XR FOOT LT MIN 3V Generic External Jay a Provider Start: 06-16-2024 SHRADDHA Gee MD Work Phone: Start: 05-27-2024 Prothrombin time [facility] Work Phone: Start: 05-20-2024 SHRADDHA Gee MD Work Phone: Start: 04-08-2024 Prothrombin time [employer] [facility] Work Phone: Start: 03-22-2024 Prothrombin time [employer] Work Phone: Start: 02-29-2024 Prothrombin time [employer] Work Phone: Start: 02-08-2024 Prothrombin time [employer] Work Phone: Start: 01-29-2024 Ecg routine ecg w/least 12 lds w/i&r Grace Gee MD Work Phone: Start: 01-29-2024 Follow-up visit Follow-up GRACE GEE Start: 01-15-2024 Prothrombin time [employer] Work Phone: Start: 11-20-2023 Prothrombin time [employer] Work Phone: Start: 10-30-2023 Prothrombin time [employer] Work Phone: Start: 09-02-2023 Prothrombin time [employer] Work Phone: Start: 07-10-2023 Prothrombin time [employer] Work Phone: Start: 05-22-2023 Prothrombin time [employer] Work Phone: Start: 04-03-2023 Prothrombin time [employer] Work Phone: Start: 02-24-2023 Excision of lesion of cheek MD Gil Gee Work Phone: Start: 10-02-2022 History of operative procedure on knee History of left knee replacement Gil Gee MD Work Phone: Start: 01-06-2022 Division of Left [...] Work Phone: Start: 04-25-2021 Colonoscopy Davion Jackson R N Start: 05-13-2018 H/O: artificial joint Status post replacement of left shoulder joint Manuel Saucedo DPM Work Phone: History of coronary artery bypass grafting S/P CABG (coronary artery bypass graft) Edgard Villa FORENSIC SPECIALIST-PR SPECIALIST Work Phone: Plan of Treatment Date Care Activity Detail Author Start: 04-25-2026 Screening for malignant neoplasm of colon Colonoscopy [facility] Start: 07-26-2025 End: 07-26-2025 Patient encounter procedure 07/26/2025 1:00 PM EDT Office Visit [facility] [address] [place] [phone] Suman Garcia MD [address] [place] [address] [facility] Start: 06-20-2025 Tobacco Screening Tobacco Screening [facility] Start: 05-24-2025 End: 05-24-2025 Patient encounter procedure 05/24/2025 1:00 PM EDT Office Visit [facility] [address] [place] [phone] Jr. Shaji Ch, DO [address] [place] [address] [facility] Start: 03-28-2025 End: 03-28-2025 Patient encounter procedure 03/28/2025 8:30 AM EST Procedure Visit [facility] [address] [place] [phone] Adilia Multani DPM [address] [place] [address] [facility] Start: 03-22-2025 Tobacco Screening Tobacco Screening [facility] Start: 02-14-2025 Tobacco Screening Tobacco Screening [facility] Start: 02-08-2025 Tobacco Screening Tobacco Screening [facility] Start: 01-28-2025 Tobacco Screening Tobacco Screening [facility] Start: 01-23-2025 End: 01-23-2025 Patient encounter procedure 01/23/2025 8:00 AM EST Office Visit [facility] [address] [place] [address] Gil Gee MD [address] [place] [address] [facility] Start: 01-17-2025 Medicare Annual Wellness (AWV) Medicare Annual Wellness (AWV) [facility] Start: 01-06-2025 End: 01-06-2025 Follow-up encounter 01/06/2025 8:00 AM EDT Follow Up Anticoagulation [facility] Medication Management [address] [place] [address] Darrel Rangel MD [address] [place] [address] [facility]ication [facility] Start: 01-02-2025 End: 01-02-2025 Patient encounter procedure [facility] Start: 12-20-2024 End: 12-20-2024 Patient encounter procedure 12/20/2024 9:30 AM EDT Office Visit [facility] [address] [place] [phone] Suman Winn, FORENSIC SPECIALIST-PR SPECIALIST [address] [place] [phone] [facility] Start: 11-11-2024 End: 11-11-2024 Follow-up encounter 11/11/2024 8:00 AM EDT Follow Up Anticoagulation [facility] Medication Management [address] [place] [address] Darrel Rangel MD [address] [place] [address] [facility] Medication Management Start: 11-07-2024 COVID-19 Vaccine ( season) COVID-19 Vaccine ( season) [facility] Start: 11-07-2024 Influenza vaccination [facility] Start: 09-22-2024 End: 09-22-2024 Patient encounter procedure [facility] Comment on above: Arrived Start: 09-16-2024 End: 09-16-2024 Follow-up encounter 09/16/2024 8:00 AM EDT Follow Up Anticoagulation [facility] Medication Management [address] [place] [address] Darrel Rangel MD [address] [place] [address] [facility] Medication Management Start: 07-29-2024 End: 07-29-2024 Follow-up encounter 07/29/2024 8:00 AM EDT Follow Up Anticoagulation [facility] Medication Management [address] [place] [address] Darrel Rangel MD [address] [place] [address] [facility] Medication Management Start: 07-26-2024 End: 07-26-2024 Patient encounter procedure [facility] Comment on above: Arrived Start: 07-18-2024 End: 07-18-2024 Patient encounter procedure [facility] Comment on above: Arrived Start: 07-15-2024 End: 07-15-2024 Follow-up encounter 07/15/2024 8:00 AM EDT Follow Up Anticoagulation [facility] Medication Management [address] [place] [address] Darrel Rangel MD [address] [place] [address] [facility] Medication Management Start: 07-04-2024 End: 06-20-2025 Basic metabolic 2000 panel - Serum or Plasma Basic Metabolic Panel Lab Routine Ischemic cardiomyopathy Expected: 07/04/2024 (Approximate), Expires: 06/20/2025 [facility] Comment on above: Expected: 07/04/2024 (Approximate), Expi res: 06/20/2025 Start: 06-21-2024 COVID-19 Vaccine () COVID-19 Vaccine () [facility] Start: 06-20-2024 End: 06-20-2025 Echo complete W/O contrast Echo complete W/O contrast Echocardiography Routine Ischemic cardiomyopathy Expected: 06/20/2024, Expires: 06/20/2025 [facility] Comment on above: Expected: 06/20/2024, Expires: Start: 06-20-2024 End: 06-20-2024 Patient encounter procedure 06/20/2024 10:00 AM EDT Office Visit [facility] [address] [place] [phone] Vincent Ching MD [address] [place] [address] [facility] Start: 05-27-2024 End: 05-27-2024 Follow-up encounter [facility] Therapy Management Start: 05-25-2024 End: 05-25-2024 Patient encounter procedure [facility] Start: 04-08-2024 End: 04-08-2024 Follow-up encounter 04/08/2024 8:00 AM EST Follow Up Anticoagulation [facility] Medication Therapy Management [address] [place] [address] Darrel Rangel MD [address] [place] [address] [facility] Start: 03-24-2024 End: 03-24-2024 Patient encounter procedure [facility] Comment on above: Arrived Start: 03-22-2024 End: 09-19-2024 [facility] Routine Coronary artery disease involving egegik coronary artery of egegik heart without angina pectoris Expected: 03/22/2024 (Approximate), Expires: 09/19/2024 [facility] Work Phone: Comment on above: Expected: 03/22/2024 (Approximate), Expi res: 09/19/2024 Start: 03-22-2024 End: 03-22-2024 Patient encounter procedure [facility] Start: 03-22-2024 End: 03-22-2024 Follow-up encounter 03/22/2024 10:15 AM EST Follow Up Anticoagulation [facility] Medication Therapy Management [address] [place] [address] Darrel Rangel MD [address] [place] [address] [facility] Start: 03-21-2024 End: 03-21-2024 Patient encounter procedure 03/21/2024 8:45 AM EST Office Visit [facility] [address] [place] [address] Gil Gee MD [address] [place] [address] Arrived [facility] Comment on above: Arrived Start: 03-11-2024 End: 03-11-2024 Follow-up encounter 03/11/2024 8:00 AM EST Follow Up Anticoagulation [facility] Medication Therapy Management [address] [place] [address] Darrel Rangel MD [address] [place] [address] [facility] Start: 02-22-2024 End: 02-22-2024 Follow-up encounter 02/22/2024 8:00 AM EST Follow Up Anticoagulation [facility] Medication Therapy Management [address] [place] [address] Darrel Rangel MD [address] [place] [address] [facility] Therapy [facility] Start: 02-16-2024 End: 02-16-2024 Clinical Support 02/16/2024 10:30 AM EST Clinical Support [facility] [address] [place] [phone] [facility] Start: 02-15-2024 End: 02-15-2024 Admission to same day surgery center 02/15/2024 7:30 AM EST - 02/15/2024 12:00 PM EST Surgery [address] [address] Manuel Barnes MD [address] [place] [address] CORONARY ARTERY BYPASS GRAFT X3-4/ TONG/ EVH [facility] Surgery Comment on above: CORONARY ARTERY BYPASS GRAFT X3-4/ TONG/ EVH Start: 02-15-2024 End: 02-15-2024 CORONARY ARTERY BYPASS GRAFT CORONARY ARTERY BYPASS GRAFT CAD 02/15/2024 7:30 AM EST [facility] Start: 02-15-2024 Subsequent hospital visit by physician 02/15/2024 7:30 AM EST Hospital Encounter [facility] Surgery [address] [place] [address]. [place] [address] Manuel Barnes MD [address] [place] [address] [facility] - Surgery Start: 02-12-2024 End: 02-12-2024 Patient encounter procedure 02/12/2024 11:00 AM EST Appointment [facility] Imaging [address] [place] [phone] [facility] Start: 02-09-2024 End: 02-08-2025 CT Chest limited W contrast IV CT chest with contrast Imaging STAT Aortic dilatation (CMS-HCC) Expected: 02/09/2024, Expires: 02/08/2025 [facility] Work Phone: Comment on above: Expected: 02/09/2024, Expires: Start: 02-09-2024 End: 02-09-2024 Admission to same day surgery center [facility] - Cardiac Cath Comment on above: Cardiac Invasive Start: 02-09-2024 Subsequent hospital visit by physician [facility] - Cardiac Cath Comment on above: Pulmonary hypertension ([facility]-HCC); Anginal equivalent ([facility]-HCC); Left ventricular dysfunction Start: 02-08-2024 End: 02-08-2024 Follow-up encounter 02/08/2024 10:15 AM EST Follow Up Anticoagulation [facility] Medication Therapy Management [address] [place] [phone] Darrel Rangel MD [address] [place] [address] [facility] Start: 01-29-2024 End: 01-29-2024 Patient encounter procedure 01/29/2024 1:00 PM EST Office Visit [facility] [address] [place] [address] Mc Correia MD [address] [facility] [place] [phone] Grace Gee MD [address] [place], [place] [address] [facility] Start: 01-20-2024 End: 01-20-2024 Patient encounter procedure 01/20/2024 8:30 AM EST Appointment [facility] - Cardiovascular [address] [place] [phone] [facility] Start: 01-18-2024 End: 01-18-2024 Patient encounter procedure 01/18/2024 10:15 AM EST Office Visit [facility] [address] [place] [address] Gil Gee MD [address] [place] [address] [facility] Start: 01-15-2024 End: 01-15-2024 Follow-up encounter 01/15/2024 8:00 AM EST Follow Up Anticoagulation [facility] Medication Therapy Management [address] [place] [address] Darrel Rangel MD [address] [place] [address], [address] [place] [address] [facility] Therapy Management Start: 12-29-2023 End: 12-29-2023 Patient encounter procedure 12/29/2023 8:30 AM EDT Office Visit [facility] [address] [phone] Mc Correia MD [address] [facility] [place] [phone] [facility] Start: 12-20-2023 Adult BMI Screening Adult BMI Screening [facility] Start: 12-20-2023 Tobacco Screening Tobacco Screening [facility] Start: 12-18-2023 End: 12-18-2023 Patient encounter procedure 12/18/2023 1:00 PM EDT Appointment [facility] Cardiovascular [address] [place] [phone] Brad Greer MD [address] [place] [address] [facility] Start: 11-20-2023 End: 11-20-2023 Follow-up encounter 11/20/2023 8:00 AM EDT Follow Up Anticoagulation [facility] Medication Therapy Management [address] [facility] [place] [address] Darrel Rangel MD [address] [place] [address] [facility] Therapy [facility] Start: 11-08-2023 COVID-19 Vaccine ( season) COVID-19 Vaccine ( season) [facility] Start: 11-08-2023 Influenza vaccination [facility] Start: 10-30-2023 End: 10-30-2023 Follow-up encounter 10/30/2023 8:00 AM EDT Follow Up Anticoagulation [facility] Medication Therapy Management [address] [place] [address] Darrel Rangel MD [address] [place] [address] [facility] Therapy [facility] Start: 10-28-2023 End: 10-27-2024 Basic metabolic 1998 panel - Serum or Plasma Basic metabolic panel Lab Routine Encounter for long-term current use of medication Expected: 10/28/2023 (Approximate), Expires: 10/27/2024 [facility] Work Phone: Comment on above: Expected: 10/28/2023 (Approximate), Expi res: 10/27/2024 Start: 10-28-2023 End: 10-27-2024 CBC W Auto Differential panel - Blood CBC and differential Lab Routine Encounter for long-term current use of medication Expected: 10/28/2023 (Approximate), Expires: 10/27/2024 [facility] Comment on above: Expected: 10/28/2023 (Approximate), Expi res: 10/27/2024 Start: 10-28-2023 End: 10-27-2024 Hepatic function 2000 panel - Serum or Plasma Hepatic function panel Lab Routine Encounter for long-term current use of medication Expected: 10/28/2023 (Approximate), Expires: 10/27/2024 [facility] Comment on above: Expected: 10/28/2023 (Approximate), Expi res: 10/27/2024 Start: 10-28-2023 End: 10-27-2024 Lipid 1996 panel - Serum or Plasma Lipid panel Lab Routine Dyslipidemia ([facility]/HCC) Expected: 10/28/2023 (Approximate), Expires: 10/27/2024 [facility] Comment on above: Expected: 10/28/2023 (Approximate), Expi res: 10/27/2024 Start: 10-28-2023 End: 10-27-2024 Thyrotropin [Units/volume] in Serum or Plasma TSH Lab Routine Adult hypothyroidism (CMS/HCC) Expected: 10/28/2023 (Approximate), Expires: 10/27/2024 [facility] Comment on above: Expected: 10/28/2023 (Approximate), Expi res: 10/27/2024 Start: 10-28-2023 End: 10-27-2024 Thyroxine (T4) free [Mass/volume] in Serum or Plasma T4, free Lab Routine Adult hypothyroidism (CMS/HCC) Expected: 10/28/2023 (Approximate), Expires: 10/27/2024 [facility] Comment on above: Expected: 10/28/2023 (Approximate), Expi res: 10/27/2024 Start: 10-28-2023 End: 10-27-2024 Triiodothyronine (T3) Free [Mass/volume] in Serum or Plasma T3, free Lab Routine Adult hypothyroidism (CMS/HCC) Expected: 10/28/2023 (Approximate), Expires: 10/27/2024 [facility] Comment on above: Expected: 10/28/2023 (Approximate), Expi res: 10/27/2024 Start: 10-28-2023 End: 10-28-2023 Patient encounter procedure 10/28/2023 10:30 AM EDT Office Visit [facility] [address] [place] [address] Gil Gee MD [address] [place] [address] Arrived [facility] Comment on above: Arrived Start: 09-02-2023 End: 09-02-2023 Follow-up encounter 09/02/2023 8:00 AM EDT Follow Up Anticoagulation [facility] [address] [place] [address] Darrel Rangel MD [address] [place] [address] [facility] Start: 07-10-2023 End: 07-10-2023 Follow-up encounter 07/10/2023 8:00 AM EDT Follow Up Anticoagulation [facility] [address] [place] [address] Darrel Rangel MD [address] [place] [address] [facility] Start: 05-22-2023 End: 05-22-2023 Follow-up encounter 05/22/2023 8:00 AM EDT Follow Up Anticoagulation [facility] [address] [place] [address] Darrel Rangel MD [address] [place] [address] [facility] Start: 05-03-2023 COVID-19 Vaccine ( season) COVID-19 Vaccine ( season) [facility] Start: 04-03-2023 End: 04-03-2023 Follow-up encounter 04/03/2023 8:00 AM EST Follow Up Anticoagulation [facility] [address] [place] [address] Darrel Rangel MD [address] [place] [address] [facility] Start: 02-24-2023 End: 02-24-2023 [facility] Start: 01-07-2023 Pneumococcal Vaccine: 65+ Years (2 of 2 - PCV) Pneumococcal Vaccine: 65+ Years (2 of 2 - PCV) [facility] Start: 11-07-2021 Influenza vaccination INFLUENZA (Season Ended) [facility] Start: 04-06-2021 DIABETES SCREEN DIABETES SCREEN [facility] Start: 03-09-2021 ADVANCE DIRECTIVE DISCUSSION ADVANCE DIRECTIVE DISCUSSION [facility] Start: 2010 Abdominal aortic aneurysm screening Abdominal Aortic Aneurysm (AAA) Screen [facility] Start: 2010 Fall Risk Screening Fall Risk Screening [facility] Start: 2010 PNEUMOCOCCAL: 65+ (1 - PCV) PNEUMOCOCCAL: 65+ (1 - PCV) [facility] Start: 2010 PNEUMOVAX AGE 65 AND OVER WITH 5YR LOOKBACK (#1) PNEUMOVAX AGE 65 AND OVER WITH 5YR LOOKBACK (#1) [facility] Start: 06-07-1995 SHINGRIX VACCINE (1 of 2) SHINGRIX VACCINE (1 of 2) [facility] Start: 1964 DTaP,Tdap and Td Vaccines (1 - Tdap) DTaP,Tdap and Td Vaccines (1 - Tdap) [facility] Start: 1964 Urine microalbumin profile DTAP,TDAP,TD (1 - Tdap) [facility] Start: 06-07-1963 Adult BMI Follow Up Plan Adult BMI Follow Up Plan [facility] Start: 06-07-1963 HEPATITIS C SCREENING HEPATITIS C SCREENING [facility] Start: 1957 Adult depression screening assessment DEPRESSION SCREENING [facility] Start: 1945 Medicare Annual Wellness (AWV) Medicare Annual Wellness (AWV) [facility] Start: 1945 Medicare Annual Wellness Visit Medicare Annual Wellness Visit [facility] End: 03-22-2025 Basic metabolic 2000 panel - Serum or Plasma Basic Metabolic Panel Lab Routine Chronic heart failure with preserved ejection fraction ([facility]) 1 Occurrences starting 03/22/2024 until 03/22/2025 [facility] [employer] Comment on above: 1 Occurrences starting 03/22/2024 until 03/22/2025 Basic metabolic 2000 panel - Serum or Plasma Basic Metabolic Panel Lab Routine Chronic heart failure with preserved ejection fraction ([facility]) 03/22/2024 11:29 AM EST [facility] End: 10-29-2024 Basic metabolic 2000 panel - Serum or Plasma Basic Metabolic Panel Lab Routine Essential hypertension 1 Occurrences starting 10/30/2023 until 10/29/2024 [employer] Work Phone: Comment on above: 1 Occurrences starting 10/30/2023 until 10/29/2024 End: 01-28-2025 Basic metabolic 2000 panel - Serum or Plasma Basic Metabolic Panel Lab Routine Essential hypertension 1 Occurrences starting 01/29/2024 until 01/28/2025 [employer] Work Phone: Comment on above: 1 Occurrences starting 01/29/2024 until 01/28/2025 End: 01-28-2025 CBC panel - Blood by Automated count CBC Lab Routine Shortness of breath 1 Occurrences starting 01/29/2024 until 01/28/2025 [facility] on above: 1 Occurrences starting 01/29/2024 until 01/28/2025 End: 05-20-2024 Lipid panel Lipid panel Lab Routine Coronary artery disease involving [place] coronary artery of [place] heart without angina pectoris 1 Occurrences starting 03/22/2024 until 05/20/2024 [employer] Work Phone: Comment on above: 1 Occurrences starting 03/22/2024 until 05/20/2024 End: 03-22-2025 Magnesium [Mass/volume] in Serum or Plasma Magnesium Lab Routine Chronic heart failure with preserved ejection fraction ([facility]) 1 Occurrences starting 03/22/2024 until 03/22/2025 [facility] Comment on above: 1 Occurrences starting 03/22/2024 until 03/22/2025 Magnesium [Mass/volu me] in Serum or Plasma Magnesium Lab Routine Chronic heart failure with preserved ejection fraction ([facility]) 03/22/2024 11:29 AM EST [facility] End: 10-29-2024 Magnesium [Mass/volume] in Serum or Plasma Magnesium Lab Routine Essential hypertension 1 Occurrences starting 10/30/2023 until 10/29/2024 [facility] Comment on above: 1 Occurrences starting 10/30/2023 until 10/29/2024 End: 09-11-2022 Mri any jt lower extrem w/o contrast matrl MRI ANKLE WO IVCON LT Radiology Routine Osteonecrosis (HCC) 1 Occurrences starting 08/12/2021 until 09/11/2022 [facility] Work Phone: Comment on above: 1 Occurrences starting 08/12/2021 until 09/11/2022 Patient referral [facility] Work Phone: End: 01-28-2025 Protime-INR Protime-INR Lab Routine nursing home (current) use of anticoagulants 1 Occurrences starting 01/29/2024 until 01/28/2025 [facility] Comment on above: 1 Occurrences starting 01/29/2024 until 01/28/2025 XR FOOT GENERAL 3V AP/LAT/OBL LEFT XR FOOT GENERAL 3V AP/LAT/OBL LEFT Radiology Routine DJD (degenerative joint disease), ankle and foot, left 07/10/2021 1:07 PM EDT [facility] Work Phone: [facility] Immunizations Immunization Date Immunization Notes Care Provider Amy tena 12-22-2023 influenza, high dose seasonal, preservative-free Yani Fletcher [facility] 12-22-2023 influenza virus vaccine, unspecified formulation [facility] Work Phone: [facility] 01-15-2023 RSV, recombinant, protein subunit RSVpreF, adjuvant reconstitu, 120mcg/0.5mL, PF (Arexvy) Gil Gee MD Work Phone: [facility] 12-31-2022 Influenza, Seasonal, Quadrivalent, Adjuvanted Gil Gee MD Work Phone: [facility] 12-31-2022 influenza virus vaccine, unspecified formulation [facility] 1 [facility] 01-07-2022 pneumococcal polysaccharide vaccine, 23 valent Gil Gee MD Work Phone: [facility] 11-29-2021 COVID-19 (Pfizer) Bivalent Booster, Age 12Y+ MD Gil Gee Work Phone: [facility] 09-10-2021 zoster vaccine recombinant Gil Gee MD Work Phone: [facility] 07-30-2021 COVID-19 (Pfizer) MD Gil osman Work Phone: [facility] 07-04-2021 zoster vaccine recombinant Gil Gee MD Work Phone: [facility] 12-26-2020 COVID-19 (Pfizer) MD Gil osman Work Phone: [facility] 05-21-2020 COVID-19 (Pfizer) MD Gil osman Work Phone: [facility] 04-30-2020 COVID-19 (Pfizer) MD Gil osman Work Phone: [facility] 12-08-2019 influenza, injectabl e, quadrivalent, preservative free Gil Gee MD Work Phone: [facility] 12-07-2018 influenza, injectabl e, quadrivalent, preservative free Gil Gee MD Work Phone: [facility] 12-16-2017 influenza, injectabl e, quadrivalent, preservative free Gil Gee MD Work Phone: [facility] 01-12-2017 influenza, injectabl e, quadrivalent, preservative free Gil Gee MD Work Phone: [facility] Healthcare Payers Date Payer Category Payer Self-pay [id number] 2021 Private Health Insurance [facility] [id number] 2019 Unknown MMO MMO MEDICARE SUPPLEMENT [id number] 2019-Present [phone] [address] [place] [address] Indemnity [id number] 2015 Commercial Indemnity [employer] [id number] 2010 Blue Cross Blue Shield BCBS [id number] 2010 Blue Cross Blue [facility] - Other ANTHEM [id number] 2010 Unknown ANTHEM BLUE CARD TRADITIONAL OOS [id number] 2010-Present [phone] [id number] [place] [address] Indemnity [id number] .[id number] 2010 Unknown [id number]. 1.13.693.2 .[id number] 2004 Medicare MEDICARE MEDICAR E A AND B [id number] 2004-Present [phone] [place] [address] Medicare [id number] .[id number] 2002 Medicare [id number]. 1.13.693.2 .[id number] 1959 Medicare [id number] 1959 Unknown [id number] 1959 Unknown [id number] 1945 Unknown [id number] 2.16.840.1.207356.3.579.2 .593 1945 Unknown [id number] 2.16.840.1.629651.3.579.2 .593 1945 Unknown [id number] 2.16.840.1.858979.3.579.2 .593 1945 Unknown [id number] 2.840.1.593089.3.579.2 .593 1945 Unknown [id number] 2.16.840.1.583824.3.579.2 .593 1945 Unknown [id number] 2.16.840.1.920274.3.579.2 .593 1945 Unknown [id number] 2.16840.1.645366.3.579.2 .593 1945 Unknown [id number] 2.16840.1.133749.3.579.2 .593 1945 Unknown [id number] 2.16.840.1.594082.3.579.2 .593 1945 Unknown [id number] 2.16.840.1.933761.3.579.2 .593 1945 Unknown [id number] 2.16.840.1.355987.3.579.2 .593 1945 Unknown [id number] 2.16.840.1.072319.3.579.2 .1286 1945 Unknown [id number] 2.16.840.1.380079.3.579.2 .1286 1945 Unknown [id number] 2.16.840.1.050856.3.579.2 .128 1945 Unknown [id number] 2.16.840.1.412996.3.579.2 .128 1945 Unknown [id number] 2.16840.1.630980.3.579.2 .128 1945 Unknown [id number] 2.840.1.891206.3.579.2 .128 1945 Unknown [id number] 2.840.1.472262.3.579.2 .128 1945 Unknown [id number] 2.840.1.377730.3.579.2 .1258 1945 Unknown [id number] 2.840.1.217047.3.579.2 .1258 1945 Unknown [id number] 2.840.1.147074.3.579.2 .1258 1945 Unknown [id number] 2.840.1.147151.3.579.2 .1258 1945 Unknown [id number] 2.840.1.999507.3.579.2 .1258 1945 Unknown [id number] .840.1.061128.3.579.2 .125 1945 Unknown [id number] .840.1.880909.3.579.2 .1258 1945 Unknown [id number] 2.840.1.411959.3.579.2 .1258 1945 Unknown [id number] 2.16840.1.393567.3.579.2 .1258 1945 Unknown [id number] 2.16840.1.172537.3.579.2 .1259 1945 Unknown [id number] 2.16.840.1.857410.3.579.2 .128 1945 Unknown [id number] 2.16.840.1.664696.3.579.2 .1286 1945 Unknown [id number] 2.16.840.1.981784.3.579.2 .128 1945 Unknown [id number] 2.16.840.1.976140.3.579.2 .128 1945 Unknown [id number] 2.16.840.1.414064.3.579.2 .1285 1945 Unknown [id number] 2.16.840.1.411826.3.579.2 .1285 1945 Unknown [id number] 2.16840.1.577544.3.579.2 .1285 1945 Unknown [id number] 2.16840.1.793855.3.579.2 .1285 1945 Unknown [id number] 2.16840.1.564161.3.579.2 .1285 1945 Unknown [id number] 2.16840.1.772726.3.579.2 .1285 1945 Unknown [id number] 2.16840.1.296256.3.579.2 .1285 1945 Unknown [id number] 2.16840.1.306112.3.579.2 .128 1945 Unknown [id number] 2.16840.1.669395.3.579.2 .1285 1945 Unknown [id number] 2.16.840.1.307881.3.579.2 .128 1945 Unknown [id number] 2.16840.1.545431.3.579.2 .1286 1945 Unknown [id number] 2.16.840.1.279511.3.579.2 .1286 1945 Unknown [id number] 2.16.840.1.885998.3.579.2 .1286 1945 Unknown [id number] 2.16.840.1.892178.3.579.2 .1286 1945 Unknown [id number] 2.16.840.1.567971.3.579.2 .1286 1945 Unknown [id number] 2.16.840.1.525522.3.579.2 .1286 Unknown [id number] 2.16.840.1.765538.3.579.2 .531 Unknown [id number] 2.16.840.1.450923.3.579.2 .531 Social History Date Type Detail Facility Start: 05-21-2015 End: 05-02-2022 Tobacco smoking status NHIS Ex-smoker [facility] Start: 03-09-1967 End: 03-09-1988 History of tobacco use Current smoker [facility] Start: 03-09-1967 End: 03-09-1988 History of tobacco use Cigarette Smoker [facility] Start: 05-21-2015 End: 04-19-2020 Cigarettes smoked current (pack per day) - Reported 1 [facility] Start: 05-21-2015 End: 05-02-2022 Tobacco use and exposure Smokeless tobacco non-user [facility] Start: 03-26-2018 End: 01-29-2024 Alcohol intake Current drinker of alcohol (finding) [facility] Start: 03-26-2018 History SDOH Alcohol Comment rare [facility] Start: 1945 Sex Assigned At Not on file C [facility] Start: 06-04-2021 End: 08-12-2021 Exposure to SARS-CoV-2 (event) Not sure [facility] Start: 04-19-2020 End: 01-18-2024 Sex Assigned At [facility] Start: 1945 Sex Assigned At Male F [facility] History of tobacco use Passive smoker [facility] Start: 01-18-2024 End: 09-22-2024 Alcoholic beverage intake Lifetime non-drinker (finding) [facility] Start: 02-04-2023 Tobacco Comment Light smoker ( 1-9 cigs /day) [facility] Start: 02-04-2023 Alcohol Comment caffeine intak e : 1-2 cups per day [facility] Start: 02-15-2024 End: 06-20-2024 Alcoholic beverage intake Ex-drinker (finding) [facility] Has the [employer], or [employer] threatened to shut off services in your home in past 12Mo No [facility] Adolescent depressio n screening assessment 0 [facility] Start: 01-05-2017 Alcohol Comment drinks occasionally [facility] Start: 10-12-2014 Sex Male (finding) [facility] Procedure Code Equipment Code Equipment Origin al Text Equipment Identifier Dates Head Rsp 36mm Neutral Glenoid Retain Screw - [id number] Start: 04-02-2018 Insert Rsp Djo Surgical Standard Hxe+ Socket Sterile Humeral - [id number] Start: 04-02-2018 Stem Altivate Dj o Surgical 14 Standard 108mm Humeral Sterile Shoulder - [id number] Start: 04-02-2018 Baseplate Rsp P2 30mm Glenoid Sterile - [id number] Start: 04-02-2018 Screw Rsp 5mm 26 mm Bone Lock Glenoid Baseplate Shoulder - [id number] Start: 04-02-2018 Screw Rsp 5mm 30 mm Bone Lock Glenoid Baseplate Shoulder - [id number] Start: 04-02-2018 Screw Rsp 5mm 26 mm Bone Lock Glenoid Baseplate Shoulder - [id number] Start: 04-02-2018 Screw Rsp 5mm 18 mm Bone Lock Glenoid Baseplate Shoulder - [id number] Start: 04-02-2018 Device Clsr 40mm Penditure Tip First Slf Clsng Strl - [id number] - [id number] Start: 02-15-2024 Goals Date Patient Goal Desired Activity /State Personal health goal Comment on above: Formatting of this n ote might be different from the original. Evaluation of progress towards goal: patient progressing toward safe discharge. Clinical Notes 06-14-2021 to 11-11-2024 Beck Weeks RPH - 11/11/2024 8:00 AM Radha Multani DPM - 09/22/2024 8:30 AM Yancy Weeks [facility] - 09/16/2024 8:00 AM Sandra Garcia MD - 07/26/2024 1:05 PM EDT Note Date & Type Note Facility 11-11-2024 History of Present illness Narrative 15 minute zcht-ck-[id number] follow-up anticoagulation appointment. INR performed in office per protocol. INR 3.0 (goal range: 2.0-3.0). Patient reports: Taking warfarin [...] in therapeutic range on current warfarin regimen. Most of pt's activity comes from yard work, so will have to assess pt's activity level and it's impact on INR at next appt in the colder months Plan: Patient instructed to continue warfarin 2 mg Mon and 4 mg AOD. Check INR in 8 week(s). Patient verbalizes understanding of anticoagulant dosing instructions and information discussed. Dosing regimen, counseling, and follow-up appointment were provided to the patient. Patient reminded to call with questions or any medication changes. Patient instructed to seek medical attention if any major bleeding/bleeding that persists or worsens. Beck Weeks RPH 11/11/24 0812 documented in this encounter [facility] 09-22-2024 History of Present illness Narrative Images from the original note were not included. Subjective Patient ID: Remi Zarco is a 79 y.o. male who presents for Toenail Care. Established patient returns for his ABN nail care.His nails are difficult for him to trim, they are thick, incurvated, elongated, fungal. He understands he has no systemic qualifiers for nail debridement according to his insurance, ABN signed prior to treatment. Patient had cardiac bypass procedure February 2024 after an annual echocardiogram showed irregularities. He is looking forward to an ankle replacement with Dr. Hernandez but won't be able to do it until February. HX: midfoot and rearfoot fusion with Dr. Hernandez 01/06/22, Had partial non union, AFO and using bone stimulator. Review of Systems Current Outpatient Medications: Acetaminophen 500 MG capsule, Take by mouth, Disp: , Rfl: ascorbic acid (Vitamin C) 250 MG chewable tablet, Chew, Disp: , Rfl: aspirin 81 MG EC tablet, Take 81 mg by mouth Daily, Disp: , Rfl: atorvastatin (Lipitor) 40 MG tablet, Take 40 mg by mouth Daily, Disp: , Rfl: eplerenone (Inspra) 25 MG tablet, Take 25 mg by mouth Daily, Disp: , Rfl: furosemide (Lasix) 20 MG tablet, , Disp: , Rfl: levothyroxine (Synthroid, Levoxyl) 100 MCG tablet, Take 1 tablet (100 mcg) by mouth in the morning. Take before meals., Disp: 90 tablet, Rfl: 3 metoprolol succinate XL (Toprol-XL) 25 MG 24 hr tablet, Take 25 mg by mouth Daily, Disp: , Rfl: Nutritional Supplements (SALMON OIL PO), Take by mouth, Disp: , Rfl: warfarin (Coumadin) 4 MG tablet, Take by mouth in the morning., Disp: , Rfl: losartan (Cozaar) 25 MG tablet, Take 25 mg by mouth in the morning. (Patient not taking: Reported on 09/22/2024), Disp: , Rfl: Morphine and Rosuvastatin Past Surgical History: Procedure Laterality Date BASAL CELL CARCINOMA EXCISION 02/24/2023 Excision BCC left cheek/[place] with repair, excision lesion right orthodox COLONOSCOPY 04/2021 CORONARY ARTERY BYPASS GRAFT 3 vessel CORONARY ARTERY BYPASS GRAFT 02/2024 CYST REMOVAL 04/2021 FOOT SURGERY Left 01/06/2022 midfoot and rearfoot fusion FOOT SURGERY 01/06/2022 left midfoot and rearfoot fusion FOOT SURGERY 01/06/2022 partial fusion , left foot NECK SURGERY 2014 Left side benign tumor exc Dr. Lane SHOULDER SURGERY Right [address] Ch SHOULDER SURGERY Left 04/02/2018 Arthroscopy reverse total shoulder Dr. [place] TOTAL KNEE ARTHROPLASTY Bilateral Right [address] Magana Family History Problem Relation Name Age of Onset Hypertension Mother Other (htn) Mother Coronary artery disease Mother Coronary artery disease Father Hypertension Father Other (htn) Father Cancer Father Objective Physical Exam Constitutional: Appearance: Normal appearance. HENT: Head: Normocephalic and atraumatic. Cardiovascular: Comments: Pedal pulses: DP 2/4 bilateral, PT 2/4 bilateral. Skin temp is warm to warm. Varicosities: absent Hair growth: present Musculoskeletal: General: No deformity. Right lower leg: Edema present. Left lower leg: Edema (mild) present. Comments: JOINT RANGE OF MOTION: Limited STJ and AJ ROM R. No available STJ ROM L, limited AJ ROM L. DEFORMITIES:Contracted digits 2-5 b/l. Prominent hardware medial L midfoot. Skin: General: Skin is warm. Capillary Refill: Capillary refill takes 2 to 3 seconds. Comments: SKIN FINDINGS: Cicatrix noted dorsal midfoot to hindfoot L. web spaces are clean/dry . HYPERKERATOSIS: none. NAIL PATHOLOGY:Nail 1 L is 5mm thick, yellow and brown, crumbly, discolored, fungal. Nails 2 and 3 b/l are 3mm thick, incurvated, yellow and white, crumbly, myoctic. Nail 5 L is 3mm thick, elongated, raised, fungal. ULCER:none. Neurological: Mental Status: He is alert and oriented to person, place, and time. Comments: Light touch sensation intact VIBRATORY:Pt able to feel vibration beginning and ceasing medial lateral: Left and right foot.. SEMMES-TINO 5.07 MONOFILAMENTHe was able to feel 5.0 7 monofilament wire and 9/9 locations plantar aspect left and right foot.. Psychiatric: Mood and Affect: Mood normal. 25254 - ABN Assessment/Plan ICD-10-CM 1. Onychomycosis B35.1 ABN reviewed and signed. Conservative and palliative care implemented as per request. Under aseptic technique all nails debrided with large and small nail nippers, curette and power carli. Onychodebridement in length and thickness with the goals of relief of pain, reducing risks of infection, ulceration or pain. Well tolerated and expresses appreciation for care given. Feet inspected and hygiene discussed. RTO 6 months. This note was created with the assistance of a speech recognition program. While intending to generate a timely document that accurately reflects the content of the visit, no guarantee can be provided that every grammatical or spelling mistake has been or will be identified or corrected. Thank you for your understanding. Adilia uMltani DPM documented in this encounter [facility] 09-16-2024 History of Present illness Narrative 15 minute [id number]-ao-[id number] follow-up anticoagulation appointment. INR performed in office per protocol. INR 2.8 (goal range: 2.0-3.0). Patient reports: Taking warfarin dosing as documented. Missed or extra doses of warfarin: No Changes to medications: No Changes to lifestyle (diet / alcohol / smoking / activity): No Recent emergency department visit / hospitalization / health changes / new contraindication to current anticoagulant: YES Just finished rehab this week from an Injured foot Signs/symptoms of bruising/bleeding or clotting or any intolerable adverse events: No Upcoming procedures: No Anticoagulant prescription needed: No Seen referring provider in the last year Duration of therapy reviewed Assessment: INR is remaining stable in therapeutic range on current warfarin regimen. Plan: Patient instructed to continue warfarin 2 mg Mon and 4 mg AOD. Check INR in 8 week(s). Patient verbalizes understanding of anticoagulant dosing instructions and information discussed. Dosing regimen, counseling, and follow-up appointment were provided to the patient. Patient reminded to call with questions or any medication changes. Patient instructed to seek medical attention if any major bleeding/bleeding that persists or worsens. Beck Weeks RPH 09/16/24 0807 documented in this encounter [facility] 08-18-2024 Miscellaneous Notes Pt calls asking if he can be switched back to his eplerenone 25mg qd. Pt was seen by mark 06/20/24 and was started on Losartan 25 qd. Pt states he was on Losartan in the past around 2018 and started have symptoms of growing breast His pcp stopped it back then. Pt did not remember this till just recently when he feels this symptom is starting again. He is asking if he can go back on the Inspra now?? Pls review and advise Gynecomastia growing breast is a side effect of Aldactone not losartan If he still feels strongly that the losartan causes this to him then that is fine give him whatever he is comfortable taking Pt notified MBO response and would like to go back to the Inspra 25. Pt still have some and does not need a new rx at this time. Pt will call back if further problems. documented in this encounter [facility] 08-18-2024 Telephone encounter Note Pt calls asking if he can be switched back to his eplerenone 25mg qd. Pt was seen by you 06/20/24 and was started on Losartan 25 qd. Pt states he was on Losartan in the past around 2018 and started have symptoms of growing breast His pcp stopped it back then. Pt did not remember this till just recently when he feels this symptom is starting again. He is asking if he can go back on the Inspra now?? [facility] and [facility] 08-18-2024 Telephone encounter Note Gynecomastia growing breast is a side effect of Aldactone not losartan If he still feels strongly that the losartan causes this to him then that is fine give him whatever he is comfortable taking [facility] 08-18-2024 Telephone encounter Note Pt notified MBO response and would like to go back to the Inspra 25. Pt still have some and does not need a new rx at this time. Pt will call back if further problems. [facility] 08-10-2024 Miscellaneous Notes Phoned pt's sister and lm on advising that appt scheduled for 12/20/24 has been cancelled and rescheduled for 01/02/25 and to have pt call if date and time do not work. documented in this encounter [facility] 08-10-2024 Telephone encounter Note Phoned pt's sister and lm on advising that appt scheduled for 12/20/24 has been cancelled and rescheduled for 01/02/25 and to have pt call if date and time do not work. [facility] 07-26-2024 History of Present illness Narrative Skin Check Location: Patient requests a skin examination from the waist up Dermatologic history: history of Actinic Keratosis, history of Basal Cell Carcinoma Last visit: 1 year ago Established patient All pertinent medical history, medications, and allergies were reviewed. General Exam: alert, oriented to person, place, and time, normal affect, well appearing uses a cane Unaccompanied A complete skin exam was offered, pt declined. Areas not examined despite medical recommendation: From the waist down Scalp, Examined , exam limited by hair Head, Face Examined , Exam limited by francis and mustache Neck Examined Chest Examined Back Examined Abdomen Examined Right arm Examined Left arm Examined Hands Examined Digits,nails: Examined Lymphatics: Not examined Skin Exam 1. SEBORRHEIC KERATOSIS Generalized Stuck on verrucous, mulligan-brown papules and plaques. Patient was counseled regarding these benign growths. Removal is normally not necessary, but they may be removed if they are symptomatic or for cosmetic reasons. 2. ACTINIC KERATOSIS Left Zygomatic Area Erythematous scaly papules Patient was counseled regarding these sun-induced growths that can develop into squamous cell carcinoma if left untreated. Discussed treatment with cryotherapy. It was emphasized that any treated lesions that fail to resolve should be re-evaluated. Cryotherapy performed today; see procedure note Diagnosis: Actinic keratosis Indication: Precancerous Location: see skin exam Consent: Verbal consent was obtained and risks were discussed, including, but not limited to risks of scarring, darker or support analyst pigmentary changes, recurrence, incomplete removal and infection. Method: Liquid nitrogen was used to treat the lesion(s) with two 5-10 second freeze-thaw cycles. Number of lesions treated: 1 Post-procedure instructions: Instructions were given orally and in writing. The office will be contacted if the lesion fails to resolve despite treatment, or if a side effect develops such as abnormal crusting, scabbing, redness or tenderness Cryotherapy, skin lesion - Left Zygomatic Area 3. MELANOCYTIC NEVUS OF TRUNK Trunk Scattered benign appearing, regular brown to light brown melanocytic papules and macules with similar morphology Counseled regarding these benign growths. Rarely, a nevus can develop into malignant melanoma, so any changing nevi should be promptly re-evaluated. 4. LENTIGINES Generalized Scattered mulligan macules in sun-exposed areas. The patient was informed that lentigines are benign pigmented lesions that occur on sun-exposed and sun-damaged skin. No treatment is necessary. Recommended regular use of broad spectrum sunscreen SPF 30 or higher 5. ANGIOMA OF SKIN Generalized Scattered mantilla-red papule(s). The patient was informed that angiomas are benign growths on the the skin. No treatment is necessary. 6. SKIN TAG Trunk Fleshy, skin-colored sessile and pedunculated papules. The patient was informed that skin tags are benign growths usually found around the neck or in the axillae. No treatment is necessary, but at times they can get caught on jewelry or clothing or become inflamed. Skin tags can be removed with scissors or liquid nitrogen. 7. HISTORY OF BASAL CELL CARCINOMA Unspecified The patient was counseled that scars from excisional sites of nonmelanoma skin cancers should be monitored closely for recurrence. The patient was instructed to contact the office for any new, changing, or symptomatic moles. The patient was also instructed to contact the office for any new lesions that develop within or around the previous surgery scar. Next Visit: 1 year, skin check documented in this encounter [facility] 07-18-2024 History of Present illness Narrative Associated Problem(s): Persistent atrial fibrillation (HCC) (CMS/HCC) In afib but rate controlled. Continue medication and follow up with cardiology. Associated Problem(s): Osteoarthritis, generalized Pain without mobic and use tylenol PRN. Associated Problem(s): Coronary artery disease (CMS/HCC) Doing well after bypass and follow with cardiology. Associated Problem(s): Chronic HFrEF (heart failure with reduced ejection fraction) (CMS/HCC) Patient stable and follow with cardiology. Associated Problem(s): Benign hypertension (CMS/HCC) BP controlled and monitor PRN. Images from the original note were not included. Subjective Patient ID: Remi Zarco is a 79 y.o. male who presents for Follow-up (6m). Follow up HTN, afib, OA, CHF, and CAD. Patient doing well today. Checking BP PRN and typically controlled. BP normal today. Taking medication daily and tolerating without side effects. Afib stable. No palpitations or heart racing. Not lightheaded or dizzy. Edema controlled with medication. Mild swelling at end of day and if on feet a lot. Edema improved in am and with elevation. No chest pain or tightness. Following with cardiology. OA stable. Stiffness in neck, back, hands, hips, and knees. Worse in am and if sit prolonged. Improved once up and moving. Using mobic and helps. Review of Systems Constitutional: Negative for fatigue. Respiratory: Negative for cough, shortness of breath and wheezing. Cardiovascular: Negative for chest pain and palpitations. Gastrointestinal: Negative for abdominal pain, diarrhea, nausea and vomiting. Genitourinary: Negative for dysuria. Objective Physical Exam Constitutional: General: He is not in acute distress. Appearance: Normal appearance. HENT: Head: Normocephalic. Right Ear: Tympanic membrane and ear canal normal. Left Ear: Tympanic membrane and ear canal normal. Eyes: Extraocular Movements: Extraocular movements intact. Pupils: Pupils are equal, round, and reactive to light. Cardiovascular: Rate and Rhythm: Normal rate. Rhythm irregular. Heart sounds: No murmur heard. No friction rub. No gallop. Pulmonary: Breath sounds: Normal breath sounds. No wheezing, rhonchi or rales. Abdominal: General: Bowel sounds are normal. There is no distension. Palpations: Abdomen is soft. Tenderness: There is no abdominal tenderness. There is no guarding or rebound. Musculoskeletal: Left lower leg: No edema. Neurological: Mental Status: He is alert. Assessment/Plan Problem List Items Addressed This Visit Benign hypertension (CMS/HCC) - Primary BP controlled and monitor PRN. Persistent atrial fibrillation (HCC) (CMS/HCC) In afib but rate controlled. Continue medication and follow up with cardiology. Osteoarthritis, generalized Pain without mobic and use tylenol PRN. Coronary artery disease (CMS/HCC) Doing well after bypass and follow with cardiology. Chronic HFrEF (heart failure with reduced ejection fraction) (CMS/HCC) Patient stable and follow with cardiology. documented in this encounter [facility] 07-15-2024 History of Present illness Narrative 15 minute [id number] follow-up anticoagulation appointment. INR performed in office per protocol. INR 1.6 (goal range: 2.0-3.0). Patient reports: Taking warfarin dosing as documented. Missed or extra doses of warfarin: No Changes to medications: YES Stopped eplerenone Started losartan Metoprolol tartrate changed to metoprolol succinate Changes to lifestyle (diet / alcohol / smoking / activity): YES Increased asparagus this week Recent emergency department visit / hospitalization / health changes / new contraindication to current anticoagulant: No Signs/symptoms of bruising/bleeding or clotting or any intolerable adverse events: No Upcoming procedures: No Anticoagulant prescription needed: No Seen referring provider in the last year Duration of therapy reviewed Assessment: INR is subtherapeutic. Last 3 INRs have been 1.6, 1.9, 2.2, indicating dose increase is needed. We will boost x1 today, then increase weekly dose 8% Plan: Patient instructed to increase to warfarin 6 mg 07/15, then increase weekly dose to 2 mg Mon and 4 mg AOD. Check INR in 2 week(s). Patient verbalizes understanding of anticoagulant dosing instructions and information discussed. Dosing regimen, counseling, and follow-up appointment were provided to the patient. Patient reminded to call with questions or any medication changes. Patient instructed to seek medical attention if any major bleeding/bleeding that persists or worsens. Irene Boland RPH 07/15/24 [id number] [facility] History of Present illness Narrative Remi Hathaway Matthew Date of visit: 06/20/2024 Date of : 1945 Age: 79 y.o. Patient Active Problem List Diagnosis Shortness of breath Essential hypertension Persistent atrial fibrillation (CMS-HCC) veneer taper (current) use of anticoagulants Left ear pain Left ventricular dysfunction Pulmonary hypertension (CMS-HCC) Anginal equivalent Coronary artery disease Anticoagulated on Coumadin Allergies Allergen Reactions Morphine sensitive skin Rosuvastatin Other (See Comments) Other Reaction(s): Muscle Pain Current Outpatient Medications Medication Sig Dispense Refill acetaminophen (TYLENOL) 325 mg tablet Take 2 tablets (650 mg total) by mouth every 4 (four) hours as needed for pain. ascorbic acid, vitamin C, 250 mg tablet,chewable Chew 1,000 mg and swallow in the morning. aspirin 81 mg Take 1 tablet (81 mg total) by mouth in the morning. atorvastatin (LIPITOR) 40 mg tablet Take 1 tablet (40 mg total) by mouth nightly. 90 tablet 3 cholecalciferol, vitamin D3, 2,000 units tablet Take 1 tablet (2,000 Units total) by mouth in the morning. eplerenone (INSPRA) 25 mg tablet Take 1 tablet (25 mg total) by mouth in the morning. 90 tablet 3 furosemide (LASIX) 20 mg tablet Take 1 tablet (20 mg total) by mouth daily. 90 tablet 3 levothyroxine (SYNTHROID, LEVOTHROID) 100 MCG tablet Take by mouth daily. metoprolol tartrate (LOPRESSOR) 25 mg tablet Take 1 tablet (25 mg total) by mouth every 12 (twelve) hours. 180 tablet 3 salmon oil/omega-3 fatty acids (SALMON OIL-1000 ORAL) Take 2 g by mouth in the morning. warfarin (COUMADIN) 4 mg tablet Take 0.5-1 tablets (2-4 mg total) by mouth in the evening. As directed by [facility] 90 tablet 1 alum-mag hydroxide-simeth (MAALOX) 200-200-20 mg/5 mL suspension Take 15 mL by mouth every 6 (six) hours as needed for indigestion. (Patient not taking: Reported on 06/20/2024) bisacodyL (DULCOLAX) 10 mg suppository Insert 1 suppository (10 mg total) into the rectum daily as needed for constipation (if magnesium hydroxide [MILK OF MAGNESIA] ineffective after 8 hours.) Indications: constipation. (Patient not taking: Reported on 06/20/2024) enoxaparin (LOVENOX) 120 mg/0.8 mL syringe Inject 0.74 mL (111 mg total) under the skin Every 12 (twelve) hours. [facility] (Medication Therapy Management) (Patient not taking: Reported on 06/20/2024) 8 mL 0 magnesium hydroxide (MILK OF MAGNESIA) 400 mg/5 mL suspension Take 15 mL by mouth daily as needed (constipation) Indications: constipation. (Patient not taking: Reported on 06/20/2024) melatonin (CIRCADIN) 5 mg tablet Take 1 tablet (5 mg total) by mouth nightly as needed (Insomnia). (Patient not taking: Reported on 06/20/2024) pantoprazole (PROTONIX) 40 mg EC tablet Take 1 tablet (40 mg total) by mouth every morning before breakfast. (Patient not taking: Reported on 06/20/2024) tamsulosin (FLOMAX) 0.4 mg capsule Take 1 capsule (0.4 mg total) by mouth nightly. (Patient not taking: Reported on 06/20/2024) warfarin (COUMADIN) 4 mg tablet Take 0.5-1 tablets (2-4 mg total) by mouth in the evening. As directed by [facility]. (Patient not taking: Reported on 06/20/2024) 30 tablet 1 No current facility-administered medications for this visit. Chief Complaint Patient presents with Follow-up EST PT F/U 3 MS LABS DONE L/S KM History of Present Illness 79-year-old male seen today in follow-up. Denies chest pain shortness of breath both at rest and with activity he is still going through cardiac rehab which has been challenging with the his chronic ankle and shoulder issues States that he feels different since the surgery but does not have any actual complaints, tells me that he he can feel his heartbeat since the surgery and that his sternal bone is moving Blood pressure above goal Past Medical History: Diagnosis Date Atrial fibrillation (CMS-HCC) Disease of thyroid gland Hypercholesteremia Hypertension Hypothyroidism Lung nodule Shortness of breath Visual impairment glasses No data recorded No data recorded No data recorded Past Surgical History: Procedure Laterality Date ANKLE FUSION Left 01/06/2022 Cardiac Invasive N/A 02/09/2024 Performed by rBad Greer MD at [facility] CARDIAC CATH LABS COLONOSCOPY N/A 04/25/2021 Performed by Tr Lynch DO at [facility] Coronary angiogram and right heart N/A 02/09/2024 Performed by Brad Greer MD at [facility] CARDIAC CATH LABS CORONARY ARTERY BYPASS GRAFT X3(JANE, SVGX2) LIGATION OF LEFT ATRIAL APPENDAGE WITH 40 mm PENDITURE/EVH OF LEFT UPPER AND LOWER LEG/TONG N/A 02/15/2024 Performed by Manuel Barnes MD at [facility] EXCISION CYST PERINEUM N/A 04/25/2021 Performed by Tr Lynch DO at [facility] REPLACEMENT TOTAL KNEE BILATERAL SHOULDER SURGERY Bilateral x 4, left shoulder replaced Family History Problem Relation Age of Onset Heart failure Mother Heart attack Father Lung cancer Father Liver cancer Maternal Grandmother Diabetes Paternal Grandmother Social History Socioeconomic History Marital status: Single Spouse name: Not on file Number of children: Not on file Years of education: Not on file Highest education level: Not on file Occupational History Not on file Tobacco Use Smoking status: Former Types: Cigarettes Smokeless tobacco: Never Vaping Use Vaping status: Never Used Substance and Sexual Activity Alcohol use: Not Currently Comment: drinks occasionally Drug use: No Sexual activity: Defer Other Topics Concern Caffeine Use Yes Comment: 1 cup daily Social History Narrative Not on file Social Drivers of Health Financial Resource Strain: Not on file Food Insecurity: No Food Insecurity (06/20/2024) Hunger Screening Food Insecurity - Worry: Never True Food Insecurity - Inability: Never True Transportation Needs: No Transportation Needs (02/15/2024) PRAPARE - Transportation Lack of Transportation (Medical): No Lack of Transportation (Non-Medical): No Physical Activity: Not on file Stress: Not on file Social Connections: Not on file Interpersonal Safety: Patient Unable To Answer (02/15/2024) Humiliation, Afraid, Rape, and Kick questionnaire Fear of Current or Ex-Partner: Patient unable to answer Emotionally Abused: Patient unable to answer Physically Abused: Patient unable to answer Sexually Abused: Patient unable to answer Housing Instability: Low Risk (02/15/2024) Housing Instability Housing Instability: No Review of Systems Review of Systems Constitutional: Negative. HENT: Positive for hearing loss. Eyes: Negative. Cardiovascular: Negative. Respiratory: Negative. Endocrine: Negative. Hematologic/Lymphatic: Bruises/bleeds easily. Skin: Negative. Musculoskeletal: Positive for joint pain. Gastrointestinal: Negative. Genitourinary: Negative. Neurological: Positive for loss of balance and numbness. Psychiatric/Behavioral: Negative. Allergic/Immunologic: Negative. Vascular: Negative. CARDIOVASCULAR: Please review HPI. Physical Examination General appearance: Alert, oriented and cooperative. In no acute distress. Skin: Warm and dry to touch. Head: Normocephalic, without obvious abnormality, atraumatic. Ears, Nose, Mouth, Throat: Throat clear without erythema or exudate. Dentition intact. Eyes: Conjunctivae unremarkable, EOM intact. Neck: No JVD, No carotid bruit. Neck supple, trachea midline. Respiratory: Clear to auscultation bilaterally, no use of accessory muscles. Cardiovascular: Irregularly irregular rate and rhythm with normal S1 and S2 with no murmurs. Gastrointestinal: Soft, non-tender. Bowel sounds normal. Musculoskeletal: Wears orthopedic shoe and has plastic immobilizer LE Neurologic: Oriented to time, person and place, affect appropriate. No focal/major motor defects noted. Psychiatric: Appropriate mood, memory and judgement. VITAL SIGNS: BP 134/82 Pulse (!) 45 Ht 182.9 cm (6') Wt 104.5 kg (230 lb 6.4 oz) SpO2 97% BMI 31.25 kg/m Orders Placed or Reconciled This Encounter Medications cholecalciferol, vitamin D3, 2,000 units tablet Sig: Take 1 tablet (2,000 Units total) by mouth in the morning. salmon oil/omega-3 fatty acids (SALMON OIL-1000 ORAL) Sig: Take 2 g by mouth in the morning. There are no discontinued medications. [id number] Score: 3 3.2% Stroke risk per year, 4.6% risk of stroke/TIA/systemic embolism IMPRESSIONS/PLAN There are no diagnoses linked to this encounter. Coronary artery disease status post CABG x3 with JANE lad, SVG to OM 2, SVG to PDA on 02/15/2024, diagnosed in the setting of abnormal echo/new cardiomyopathy symptom exertional dyspnea Ischemic cardiomyopathy LVEF 45 50%, reportedly normalized on intra op TONG Status post left atrial appendage ligation with 40 mm atrial clip Longstanding persistent atrial fibrillation on Coumadin, severe atrial myopathy with KYLAH 69.2 ml/m2 , size 6.6 cm Moderate MR Primary hypertension Ascending aortic aneurysm 4.05 cm on CTA chest 02/12/24 Hyperlipidemia Hypothyroidism -- his bradycardic asymptomatic on Lopressor 25 b.i.d. which I will discontinue for cardio selective Toprol 12.5 mg daily -- add losartan 25 mg daily -- inquire about stopping eplerenone due to cost his LVEF was never less than 40%, given week indication and caused I will stop it. -- well compensated on Lasix 20 mg daily We will get an echocardiogram to properly evaluated LVEF post revascularization as well as MR, and a basic metabolic panel with the above changes - VINCENT CHING MD 06/20/24 10:23 AM TODAYS ORDERS No orders of the defined types were placed in this encounter. FOLLOW UP No follow-ups on file. PCP: GIL GEE MD Referring Physician: Gil Gee MD [address] [place] [address] documented in this encounter [facility] 06-20-2024 Instructions Vincent Ching MD - 06/20/2024 10:00 AM EDT STOP EPELRENONE STOP LOPRESSOR START LOSARTAN START TOPROL GET THE BLOOD WORK IN [facility] W[facility] documented in this encounter [facility] 06-17-2024 Miscellaneous Notes Left message for patient to remind them to bring their most current medication list with them to their appointment. documented in this encounter [facility] 06-17-2024 Telephone encounter Note Left message for patient to remind them to bring their most current medication list with them to their appointment. [facility] 06-13-2024 Miscellaneous Notes Patient called for refill on warfarin, 4mg tablets. He would like a 30-day supply called in to the [facility] in [place], and his regular 90-day supply sent to [facility]. Noted. Last [facility] visit 05/27/24. Referring provider Dr. Correia ([facility]) with last OV 03/22/24. Current warfarin dose 2 mg Mon/Thurs and 4 mg AOD. Warfarin 4 mg #30 w/ 1 RF sent to [facility]. Will wait to send to mail order until this afternoon to ensure local script is filled first. Appears refills were sent on 05/18/2024 by [facility] to [facility] already, but they were not filled. Irene Boland PharmD, [facility] June 13, 2024 8:55 AM documented in this encounter [facility] 06-13-2024 Telephone encounter Note Patient called for refill on warfarin, 4mg tablets. He would like a 30-day supply called in to the [facility] in [place], and his regular 90-day supply sent to [facility]. [facility] 06-13-2024 Telephone encounter Note Noted. Last PPM visit 05/27/24. Referring provider Dr. Correia ([facility]) with last OV 03/22/24. Current warfarin dose 2 mg Mon/Thurs and 4 mg AOD. Warfarin 4 mg #30 w/ 1 RF sent to [facility]. Will wait to send to mail order until this afternoon to ensure local script is filled first. Appears refills were sent on 05/18/2024 by [facility] to [facility] already, but they were not filled. Irene Boland PharmD, [facility] June 13, 2024 8:55 AM [facility] 05-27-2024 History of Present illness Narrative 15 minute [id number]-[id number]-[id number] follow-up anticoagulation appointment. INR performed in office [...] that persists or worsens. Irene Boland RPH 05/27/24 [id number] documented in this encounter [facility] 05-16-2024 Miscellaneous Notes Last ov 03/22/2024 Labs 03/22/2024 documented in this encounter [facility] 05-16-2024 Telephone encounter Note Last ov 03/22/2024 Labs 03/22/2024 [facility] 05-06-2024 Miscellaneous Notes Pt arrived for his CR assessment. In discussion of program it was determined that driving here 3x week may be too much. Patient does live a little closer to [place] and runs errands there as well so decision made to sign up for Cardiac Rehab there. Information to that department provided to patient and referral faxed to [facility]. documented in this encounter [facility] 05-06-2024 Telephone encounter Note Pt arrived for his CR assessment. In discussion of program it was determined that driving here 3x week may be too much. Patient does live a little closer to [place] and runs errands there as well so decision made to sign up for Cardiac Rehab there. Information to that department provided to patient and referral faxed to [facility]. [facility] 04-08-2024 History of Present illness Narrative 15 minute pxnh-ro-[id number] follow-up anticoagulation appointment. INR performed in office per protocol. INR 1.9 (goal range: 2.0-3.0). Patient reports: Taking warfarin [...] year Duration of therapy reviewed Assessment: INR now subtherapeutic after being elevated two weeks ago. Patient is fairly stable on his maintenance dose so will not plan to make changes Plan: Patient instructed to continue warfarin 2 mg Thursday and , 4 mg all other days. Ideally redraw in four weeks but patient wanted to return in 7 weeks. INR in 7 weeks per patient request. Patient verbalizes understanding of anticoagulant dosing instructions and information discussed. Dosing regimen, counseling, and follow-up appointment were provided to the patient. Patient reminded to call with questions or any medication changes. Patient instructed to seek medical attention if any major bleeding/bleeding that persists or worsens. Charli Stephens RPH 04/08/24 1038 documented in this encounter [facility] 04-07-2024 Miscellaneous Notes H pharmacist will not in tomorrow. Called patient and left message requesting to reschedule visit to next week. documented in this encounter [facility] 04-07-2024 Telephone encounter Note H pharmacist will not in tomorrow. Called patient and left message requesting to reschedule visit to next week. [facility] 03-26-2024 Miscellaneous Notes ----- Message from ASHLEY Mendez sent at 03/26/2024 8:10 AM EST ----- Contract: [facility] Refill request for metoprolol 25mg twice a day. Contract: [facility] Pt calling regarding refill request for metoprolol 25mg twice a day. Three refills remaining. Expiration date 03/22/25. Seen by Nancy CONNOLLY on 03/22/24. Order placed for mail order. Pt states it typically take about 1 week to arrive. Has enough meds to get through today and then he'll be completely out. Requesting 5 day supply to get him through until mail order arrives. Reason for Disposition [1] Prescription refill request for ESSENTIAL medicine (i.e., likelihood of harm to patient if not taken) AND [2] triager unable to refill per department policy Protocols used: Medication Refill and Renewal Call-A-AH On-call provider notified via secure chat message of Pt's refill request. Awaiting response. Message received from TENZIN Jimenez to call in 30 day supply of metoprolol 25mg BID. Order called in to [facility]. Spoke to pharmacist Carolyn. Pt contacted and updated. After hours not reviewed. Nothing further needed at this time. [facility] Telephone encounter Note ----- Message from ASHLEY Mendez sent at 03/26/2024 8:10 AM EST ----- Contract: [facility] Refill request for metoprolol 25mg twice a day. [facility] 03-26-2024 Telephone encounter Note Contract: [facility] Pt calling regarding refill request for metoprolol 25mg twice a day. Three refills remaining. Expiration date 03/22/25. Seen by Nancy CONNOLLY on 03/22/24. Order placed for mail order. Pt states it typically take about 1 week to arrive. Has enough meds to get through today and then he'll be completely out. Requesting 5 day supply to get him through until mail order arrives. Reason for Disposition [1] Prescription refill request for ESSENTIAL medicine (i.e., likelihood of harm to patient if not taken) AND [2] triager unable to refill per department policy Protocols used: Medication Refill and Renewal Call-A- [facility] 03-26-2024 Telephone encounter Note On-call provider notified via secure chat message of Pt's refill request. Awaiting response. [facility] 03-26-2024 Telephone encounter Note Message received from TENZIN Jimenez to call in 30 day supply of metoprolol 25mg BID. [facility] 03-26-2024 Telephone encounter Note Order called in to [facility]. Spoke to pharmacist Carolyn. [facility] 03-26-2024 Telephone encounter Note Pt contacted and updated. [facility] 03-26-2024 Telephone encounter Note After hours not reviewed. Nothing further needed at this time. [facility] 03-25-2024 Miscellaneous Notes Received message to r/c to pt regarding medications questions. [facility] ([email or web address] Medical Record Technician asked for r/c to office to further discuss. documented in this encounter [facility] 03-25-2024 Telephone encounter Note Received message to r/c to pt regarding medications questions. [facility] ([email or web address]) Medical Record Technician asked for r/c to office to further discuss. [facility] 03-24-2024 History of Present illness Narrative Images from the original note were not included. Subjective Patient ID: Remi Zarco is a 78 y.o. male who presents for Toenail Care (Pt is here today requesting nail care,/SS: 13). Established patient returns for his ABN nail care. He states the nails are incurvated, thick, fungal. He returns every 6 months for ABN nail care. He understands he has no systemic qualifiers for nail debridement according to his insurance. Patient had atrial bypass February 2024 after an annual echocardiogram showed irregularities. His recovery required ambulation in the hospital without his shoes or brace which has irritated the left ankle. He does plan to follow up with Dr. Hernandez for this. HX: midfoot and rearfoot fusion with Dr. Hernandez 01/06/22, Had partial non union, AFO and using bone stimulator. Review of Systems Current Outpatient Medications: ascorbic acid (Vitamin C) 250 MG chewable tablet, Chew., Disp: , Rfl: aspirin 81 MG EC tablet, Take 81 mg by mouth Daily, Disp: , Rfl: atorvastatin (Lipitor) 40 MG tablet, Take 40 mg by mouth Daily, Disp: , Rfl: eplerenone (Inspra) 25 MG tablet, Take 25 mg by mouth Daily, Disp: , Rfl: furosemide (Lasix) 20 MG tablet, , Disp: , Rfl: levothyroxine (Synthroid, Levoxyl) 150 MCG tablet, Take by mouth Daily before meals, Disp: , Rfl: metoprolol tartrate (Lopressor) 25 MG tablet, Take 25 mg by mouth in the morning and 25 mg before bedtime., Disp: , Rfl: pantoprazole (ProtoNix) 40 MG EC tablet, Take 40 mg by mouth in the morning. Take before meals. Do not crush, chew, or split.., Disp: , Rfl: tamsulosin (Flomax) 0.4 MG 24 hr capsule, Take 0.4 mg by mouth Daily, Disp: , Rfl: warfarin (Coumadin) 4 MG tablet, Take by mouth Daily., Disp: , Rfl: Morphine and Rosuvastatin Past Surgical History: Procedure Laterality Date BASAL CELL CARCINOMA EXCISION 02/24/2023 Excision BCC left cheek/[place] with repair, excision lesion right orthodox COLONOSCOPY 04/2021 CORONARY ARTERY BYPASS GRAFT 3 vessel CORONARY ARTERY BYPASS GRAFT 02/2024 CYST REMOVAL 04/2021 FOOT SURGERY Left 01/06/2022 midfoot and rearfoot fusion FOOT SURGERY 01/06/2022 left midfoot and rearfoot fusion FOOT SURGERY 01/06/2022 partial fusion , left foot NECK SURGERY 2014 Left side benign tumor exc Dr. Lane SHOULDER SURGERY Right [address] Ch SHOULDER SURGERY Left 04/02/2018 Arthroscopy reverse total shoulder Dr. [place] TOTAL KNEE ARTHROPLASTY Bilateral Right [address] Magana Family History Problem Relation Name Age of Onset Hypertension Mother Other (htn) Mother Coronary artery disease Mother Coronary artery disease Father Hypertension Father Other (htn) Father Cancer Father Objective Physical Exam Constitutional: Appearance: Normal appearance. HENT: Head: Normocephalic and atraumatic. Cardiovascular: Comments: Pedal pulses: DP 2/4 bilateral, PT 2/4 bilateral. Skin temp is warm to warm. Varicosities: absent Hair growth: present Musculoskeletal: General: No deformity. Right lower leg: No edema. Left lower leg: Edema (mild) present. Comments: JOINT RANGE OF MOTION: Limited STJ and AJ ROM R. No available STJ ROM L, limited AJ ROM L. DEFORMITIES:Contracted digits 2-5 b/l. Prominent hardware medial L midfoot. Skin: General: Skin is warm. Capillary Refill: Capillary refill takes 2 to 3 seconds. Comments: SKIN FINDINGS: Cicatrix noted dorsal midfoot to hindfoot L. web spaces are clean/dry . HYPERKERATOSIS: none. NAIL PATHOLOGY:Nail 1 L is 5mm thick, yellow and brown, crumbly, discolored, fungal. Nails 2 and 3 b/l are 3mm thick, incurvated, yellow and white, crumbly, myoctic. Nail 5 L is 3mm thick, elongated, raised, fungal. ULCER:none. Neurological: Mental Status: He is alert and oriented to person, place, and time. Comments: Light touch sensation intact VIBRATORY:Pt able to feel vibration beginning and ceasing medial lateral: Left and right foot.. SEMMES-TINO 5.07 MONOFILAMENTHe was able to feel 5.0 7 monofilament wire and 9/9 locations plantar aspect left and right foot.. Psychiatric: Mood and Affect: Mood normal. [address] - [facility] Assessment/Plan ICD-10-CM 1. Onychomycosis B35.1 ABN reviewed and signed. Patient requests debriding of toenails. As per request all 10 nails are debrided. There reduced in thickness and in length. Margins curetted of debris. Feet inspected. Hygiene discussed. Invited to call if questions or problems arise. RTO 6 months This note was created with the assistance of a speech recognition program. While intending to generate a timely document that accurately reflects the content of the visit, no guarantee can be provided that every grammatical or spelling mistake has been or will be identified or corrected. Thank you for your understanding. Adilia Multani DPM documented in this encounter [facility] 03-22-2024 History of Present illness Narrative Remi Hathaway Matthew Date of visit: 03/22/2024 Date of : 1945 Age: 78 y.o. Patient Active Problem List Diagnosis Shortness of breath Essential hypertension Persistent atrial fibrillation ([facility]) veneer taper (current) use of anticoagulants Left ear pain Left ventricular dysfunction Pulmonary hypertension ([facility]) Anginal equivalent ([facility]) Coronary artery disease Anticoagulated on Coumadin Allergies Allergen Reactions Morphine sensitive skin Rosuvastatin Other (See Comments) Other Reaction(s): Muscle Pain Current Outpatient Medications Medication Sig Dispense Refill acetaminophen (TYLENOL) 325 mg tablet Take 2 tablets (650 mg total) by mouth every 4 (four) hours as needed for pain. alum-mag hydroxide-simeth (MAALOX) 200-200-20 mg/5 mL suspension Take 15 mL by mouth every 6 (six) hours as needed for indigestion. ascorbic acid, vitamin C, 250 mg tablet,chewable Chew and swallow. aspirin 81 mg Take 1 tablet (81 mg total) by mouth in the morning. atorvastatin (LIPITOR) 40 mg tablet Take 1 tablet (40 mg total) by mouth nightly. 90 tablet 3 bisacodyL (DULCOLAX) 10 mg suppository Insert 1 suppository (10 mg total) into the rectum daily as needed for constipation (if magnesium hydroxide [MILK OF MAGNESIA] ineffective after 8 hours.) Indications: constipation. enoxaparin (LOVENOX) 120 mg/0.8 mL syringe Inject 0.74 mL (111 mg total) under the skin Every 12 (twelve) hours. as directed by Amberly MTM (Medication Therapy Management) 8 mL 0 eplerenone (INSPRA) 25 mg tablet Take 1 tablet (25 mg total) by mouth in the morning. 90 tablet 3 furosemide (LASIX) 20 mg tablet Take 1 tablet (20 mg total) by mouth daily. 90 tablet 3 levothyroxine (SYNTHROID, LEVOTHROID) 100 MCG tablet Take by mouth daily. magnesium hydroxide (MILK OF MAGNESIA) 400 mg/5 mL suspension Take 15 mL by mouth daily as needed (constipation) Indications: constipation. melatonin (CIRCADIN) 5 mg tablet Take 1 tablet (5 mg total) by mouth nightly as needed (Insomnia). metoprolol tartrate (LOPRESSOR) 25 mg tablet Take 1 tablet (25 mg total) by mouth every 12 (twelve) hours. 180 tablet 3 pantoprazole (PROTONIX) 40 mg EC tablet Take 1 tablet (40 mg total) by mouth every morning before breakfast. tamsulosin (FLOMAX) 0.4 mg capsule Take 1 capsule (0.4 mg total) by mouth nightly. warfarin (COUMADIN) 4 mg tablet Take 1 tablet (4 mg total) by mouth in the evening. No current facility-administered medications for this visit. Chief Complaint Patient presents with Follow-up S/P CABG x3 02/15/2024 [facility] History of Present Illness Patient is a 70-year-old female with a past medical history of ASCVD CABG x3 02/15/2024 when preserved EF, hypertension, hyperlipidemia, hypothyroidism, ascending aortic aneurysm longstanding persistent atrial fibrillation rate controlled. Patient noted to have shortness of breath when he exerts himself and underwent left and right heart catheterization to further evaluate on 02/08/2022 which revealed Mild pulmonary artery hypertension which was noted to be severe on echocardiogram, multivessel disease Patient underwent with ligation of left atrial appendage with 40mm Penditure clip on 02/15/2024 Presents today for follow up, no complaints of chest pain, however his dyspnea on exertion is similar to prior to his surgery, possibly a little bit worse. However he has not been able to exercise as much as he would like due to his ankle pain is currently in the process of considering an ankle replacement. No shortness of breath at rest, no complaints of swelling, denies heart racing sensation with his atrial fibrillation, no lightheadedness or near-syncope. Past Medical History: Diagnosis Date Atrial fibrillation (CMS-HCC) Disease of thyroid gland Hypercholesteremia Hypertension Hypothyroidism Lung nodule Shortness of breath Visual impairment glasses No data recorded No data recorded No data recorded Past Surgical History: Procedure Laterality Date ANKLE FUSION Left 01/06/2022 Cardiac Invasive N/A 02/09/2024 Performed by Brad Greer MD at [facility] CARDIAC CATH LABS COLONOSCOPY N/A 04/25/2021 Performed by Tr Lynch DO at [facility] Coronary angiogram and right heart N/A 02/09/2024 Performed by Brad Greer MD at [facility] CARDIAC CATH LABS CORONARY ARTERY BYPASS GRAFT X3(JANE, SVGX2) LIGATION OF LEFT ATRIAL APPENDAGE WITH 40 mm PENDITURE/EVH OF LEFT UPPER AND LOWER LEG/TONG N/A 02/15/2024 Performed by Manuel Barnes MD at [facility] EXCISION CYST PERINEUM N/A 04/25/2021 Performed by Tr Lynch DO at [facility] REPLACEMENT TOTAL KNEE BILATERAL SHOULDER SURGERY Bilateral x 4, left shoulder replaced Family History Problem Relation Age of Onset Heart failure Mother Heart attack Father Lung cancer Father Liver cancer Maternal Grandmother Diabetes Paternal Grandmother Social History Socioeconomic History Marital status: Single Spouse name: Not on file Number of children: Not on file Years of education: Not on file Highest education level: Not on file Occupational History Not on file Tobacco Use Smoking status: Former Types: Cigarettes Smokeless tobacco: Never Vaping Use Vaping status: Never Used Substance and Sexual Activity Alcohol use: Not Currently Comment: drinks occasionally Drug use: No Sexual activity: Defer Other Topics Concern Caffeine Use Yes Comment: 1 cup daily Social History Narrative Not on file Social Drivers of Health Financial Resource Strain: Not on file Food Insecurity: No Food Insecurity (02/17/2024) Hunger Screening Food Insecurity - Worry: Never True Food Insecurity - Inability: Never True Transportation Needs: No Transportation Needs (02/15/2024) PRAPARE - Transportation Lack of Transportation (Medical): No Lack of Transportation (Non-Medical): No Physical Activity: Not on file Stress: Not on file Social Connections: Not on file Interpersonal Safety: Patient Unable To Answer (02/15/2024) Humiliation, Afraid, Rape, and Kick questionnaire Fear of Current or Ex-Partner: Patient unable to answer Emotionally Abused: Patient unable to answer Physically Abused: Patient unable to answer Sexually Abused: Patient unable to answer Housing Instability: Low Risk (02/15/2024) Housing Instability Housing Instability: No Review of Systems Review of Systems Constitutional: Negative for malaise/fatigue. Respiratory: Positive for shortness of breath. Negative for cough and wheezing. Hematologic/Lymphatic: Does not bruise/bleed easily. Musculoskeletal: Negative for joint pain, joint swelling, muscle cramps and muscle weakness. Gastrointestinal: Negative for abdominal pain, constipation, heartburn, nausea and vomiting. Neurological: Negative for dizziness, headaches, light-headedness and loss of balance. CARDIOVASCULAR: Please review HPI. Physical Examination General appearance: Alert, oriented and cooperative. In no acute distress. Skin: Warm and dry to touch. Head: Normocephalic, without obvious abnormality, atraumatic. Ears, Nose, Mouth, Throat: Throat clear without erythema or exudate. Dentition intact. Eyes: Conjunctivae unremarkable, EOM intact. Neck: No JVD, No carotid bruit. Neck supple, trachea midline. Respiratory: Clear to auscultation bilaterally, no use of accessory muscles. Cardiovascular: RRR with normal S1 and S2 with no murmurs. Gastrointestinal: Soft, non-tender. Bowel sounds normal. Musculoskeletal: No peripheral edema. Neurologic: Oriented to time, person and place, affect appropriate. No focal/major motor defects noted. Psychiatric: Appropriate mood, memory and judgement. VITAL SIGNS: BP 134/82 Pulse 62 Ht 182.9 cm (6') Wt 106.6 kg (235 lb) SpO2 97% BMI 31.87 kg/m Orders Placed or Reconciled This Encounter Medications atorvastatin (LIPITOR) 40 mg tablet Sig: Take 1 tablet (40 mg total) by mouth nightly. Dispense: 90 tablet Refill: 3 metoprolol tartrate (LOPRESSOR) 25 mg tablet Sig: Take 1 tablet (25 mg total) by mouth every 12 (twelve) hours. Dispense: 180 tablet Refill: 3 eplerenone (INSPRA) 25 mg tablet Sig: Take 1 tablet (25 mg total) by mouth in the morning. Dispense: 90 tablet Refill: 3 furosemide (LASIX) 20 mg tablet Sig: Take 1 tablet (20 mg total) by mouth daily. Dispense: 90 tablet Refill: 3 Medications Discontinued During This Encounter Medication Reason eplerenone (INSPRA) 25 mg tablet Reorder atorvastatin (LIPITOR) 40 mg tablet Reorder metoprolol tartrate (LOPRESSOR) 25 mg tablet Reorder [id number] Score: 3 3.2% Stroke risk per year, 4.6% risk of stroke/TIA/systemic embolism IMPRESSIONS/PLAN 1. Coronary artery disease involving [place] coronary artery of [place] heart without angina pectoris -SP CABG x3 JANE-LAD,SVG-2OM, SVG-PDA -continue aspirin 81 mg -continues to have dyspnea on exertion, overall stable states it is not too bad discuss to continue cardiac rehab as tolerated, we will recent his referral to the [place] office and monitor his symptoms following this. 2. Persistent atrial fibrillation (CMS-HCC) - rates well controlled continue metoprolol tartrate 25 mg -anticoagulated on warfarin unable to afford Eliquis -presence of 40mm Penditure clip, discussed can consider coming off anticoagulation if TONG or CT is completed in the future, for now will stay on warfarin. Noted that the clip only theoretically a stroke 3. Essential hypertension - 134/82 today tells me it is never above 135 systolic anymore continue, eplerenone 25 mg, metoprolol tartrate 25 mg, 4. Chronic heart failure with preserved ejection fraction (CMS-HCC) -euvolemic -continue eplerenone, we will continue his maintenance diuretic with furosemide 20 mg 5. Hyperlipidemia -continue atorvastatin 40 mg, repeat lipid panel in 2 months will up titrate as needed 6. Ascending thoracic aortic aneurysm -40.[address] chest 02/12/2024 7. Preserved EF intraop echocardiogram 8. Mild pulmonary hypertension on right heart catheterization Patient is stable from a cardiovascular standpoint, will continue to monitor his dyspnea on exertion, does not improve with cardiac rehab may need to up titrate antianginals. He will follow up in 3 months or sooner as needed with his completed lab work patient seen with Dr. Ching in the office. TODAYS ORDERS Orders Placed This Encounter Procedures Lipid panel Basic Metabolic Panel Magnesium [facility] Cardiac Rehab FOLLOW UP Return in about 3 months (around 06/20/2024). PCP: GIL GEE MD Referring Physician: Gil Gee MD [address] [place] [address] Nancy Ovalle PA-C 03/22/24 1129 documented in this encounter [facility] 03-22-2024 Instructions Nancy Ovalle PA-C - 03/22/2024 11:00 AM EST Lipid panel in 2 months BMP and Mag when able to, today is okay Record blood pressure and heart rate 3 times per week. Call if systolic (top) number is consistently greater than 135 or less than 100 or diastolic (bottom) number is consistently greater than 90. Call if heart rate is consistently greater than 110 or less than 50. Follow up in 3 months or sooner as needed documented in this encounter [facility] 03-22-2024 History of Present illness Narrative 15 minute [id number] follow-up anticoagulation appointment. INR performed in office per protocol. INR 3.3 (goal range: 2.0-3.0). Patient reports: Taking warfarin dosing as documented. Missed or extra doses of warfarin: No Changes to medications: YES Vitamin C with feeling a cold coming on Changes to lifestyle (diet / alcohol / smoking / activity): No Recent emergency department visit / hospitalization / health changes / new contraindication to current anticoagulant: YES Some swelling remains in LE, wearing compression stockings Patient feels like he may be getting a cold Signs/symptoms of bruising/bleeding or clotting or any intolerable adverse events: No Upcoming procedures: No Anticoagulant prescription needed: No Seen referring provider in the last year Duration of therapy reviewed Assessment: INR is slightly elevated. This may be due to cold, Vitamin C increase, and slight amount of fluid in lower extremities per patient report. We will reduce x1 and safety check in 3 weeks. Plan: Patient instructed to decrease to warfarin 2 mg 03/23, then resume 2 mg Thu/ and 4 mg AOD. Check INR in 3 week(s). Patient verbalizes understanding of anticoagulant dosing instructions and information discussed. Dosing regimen, counseling, and follow-up appointment were provided to the patient. Patient reminded to call with questions or any medication changes. Patient instructed to seek medical attention if any major bleeding/bleeding that persists or worsens. Irene Boland RPH 03/22/24 1029 documented in this encounter [facility] 03-21-2024 Miscellaneous Notes Left message for patient to remind them to bring their most current medication list with them to their appointment. documented in this encounter [facility] 03-21-2024 Telephone encounter Note Left message for patient to remind them to bring their most current medication list with them to their appointment. [facility] 03-21-2024 History of Present illness Narrative Associated Problem(s): Chronic HFrEF (heart failure with reduced ejection fraction) (CMS/HCC) Patient stable and follow with cardiology. Associated Problem(s): Pulmonary hypertension (CMS/HCC) Patient stable and follow with cardiology. Associated Problem(s): Persistent atrial fibrillation (HCC) (CMS/HCC) In afib but rate controlled. Continue medication and follow up with cardiology. Associated Problem(s): Osteoarthritis, generalized Pain without mobic and use tylenol PRN. Associated Problem(s): Coronary artery disease (CMS/HCC) Doing well after bypass and follow with cardiology. Associated Problem(s): Benign hypertension (CMS/HCC) BP controlled and monitor PRN. Images from the original note were not included. Subjective Patient ID: Remi Zarco is a 78 y.o. male who presents for Follow-up (Cardiology wanted a pcp visit.). Follow up from hospital and SNF after CABG. Seen by cardiology and c/o SOB with exertion. Cath showed severe 3 vessel disease. 3 vessel CABG performed 02/14 and admitted until the . Did well in hospital and to SNF 02/18-02/24. Feels well since home. Mild SOB and fatigue with exertion but walking well. No chest pain or tightness. Medication adjusted and chart updated. Checking BP PRN and typically controlled. BP normal today. Taking medication daily and tolerating without side effects. Afib stable. No palpitations or heart racing. Not lightheaded or dizzy. C/o increased joint pain since stopping mobic and cardiology doesn't want on NSAIDs. Increased pain in hands and ankle. Pain in legs. Using tylenol and mild relief. Review of Systems Constitutional: Negative for fatigue. Respiratory: Negative for cough, shortness of breath and wheezing. Cardiovascular: Negative for chest pain and palpitations. Gastrointestinal: Negative for abdominal pain, diarrhea, nausea and vomiting. Genitourinary: Negative for dysuria. Objective Physical Exam Constitutional: General: He is not in acute distress. Appearance: Normal appearance. HENT: Head: Normocephalic. Right Ear: Tympanic membrane and ear canal normal. Left Ear: Tympanic membrane and ear canal normal. Eyes: Extraocular Movements: Extraocular movements intact. Pupils: Pupils are equal, round, and reactive to light. Cardiovascular: Rate and Rhythm: Normal rate. Rhythm irregular. Heart sounds: No murmur heard. No friction rub. No gallop. Pulmonary: Breath sounds: Normal breath sounds. No wheezing, rhonchi or rales. Abdominal: General: Bowel sounds are normal. There is no distension. Palpations: Abdomen is soft. Tenderness: There is no abdominal tenderness. There is no guarding or rebound. Musculoskeletal: Left lower leg: No edema. Neurological: Mental Status: He is alert. Assessment/Plan documented in this encounter [facility] 03-10-2024 Miscellaneous Notes Patient called and cancelled his INR appt for 03/11/24 and r/s for 03/16/24. He is not feeling well enough to come to his appt. He wanted to push the appt to 03/22/24, as he has another appt with [facility]. Noted. Rescheduled INR to 03/22 per patient request. INR was stable at last check, making 03/22 a 3 week follow up. Not ideal, but given patients current medical state, more favorable for transportation. LM for patient with new appt time and asked him to please call with any changes or concerns as we can see him sooner. Irene Boland PharmD, BCPS March 10, 2024 9:13 AM documented in this encounter [facility] 03-10-2024 Telephone encounter Note Patient called and cancelled his INR appt for 03/11/24 and r/s for 03/16/24. He is not feeling well enough to come to his appt. He wanted to push the appt to 03/22/24, as he has another appt with [facility]. [facility] 03-10-2024 Telephone encounter Note Noted. Rescheduled INR to 03/22 per patient request. INR was stable at last check, making 03/22 a 3 week follow up. Not ideal, but given patients current medical state, more favorable for transportation. LM for patient with new appt time and asked him to please call with any changes or concerns as we can see him sooner. Irene Boland PharmD, [facility] March 10, 2024 9:13 AM [facility] Work Phone: 03-04-2024 History of Present illness Narrative Returned call to patient. LM for a return call documented in this encounter [facility] 03-03-2024 Miscellaneous Notes Pt called and states he would like to get back on his mobic he had [facility] on 02/15/24. 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 If he and his primary care doctor who prescribes the medicine feel that the Mobic is the best choice and agree that the benefits outweigh the risks, he may resume Called pt with LLD recommendations. Pt has appt with PCP in Mar.He said will discuss with him at that time.slm documented in this encounter [facility] 03-03-2024 Telephone encounter Note Pt called and states he would like to get back on his mobic he had [facility] on 02/15/24. 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 If he and his primary care doctor who prescribes the medicine feel that the Mobic is the best choice and agree that the benefits outweigh the risks, he may resume [facility] 03-03-2024 Telephone encounter Note Called pt with LLD recommendations. Pt has appt with PCP in Mar.He said will discuss with him at that time.slm [facility] 02-29-2024 History of Present illness Narrative 15 minute [id number] follow-up anticoagulation appointment. Patient was scheduled as new visit as this is first appt at [facility]; he typically INR performed in office per protocol. INR 2.7 (goal range: 2.0-3.0). Patient reports: Taking warfarin dosing as documented. Missed or extra doses of warfarin: No Changes to medications: YES Patient instructed by surgeon today to increase to furosemide 40 mg BID x 5 days then 40 mg once daily x 10 days Changes to lifestyle (diet / alcohol / smoking / activity): No Patient reports appetite is close to baseline following surgery Recent emergency department visit / hospitalization / health changes / new contraindication to current anticoagulant: YES Fluid overloaded per surgeon visit today. Signs/symptoms of bruising/bleeding or clotting or any intolerable adverse events: No Upcoming procedures: No Anticoagulant prescription needed: No Seen referring provider in the last year Duration of therapy reviewed Assessment: INR remains in goal range after recent hospitalization. Will continue with maintenance plan. Plan: Patient instructed to continue warfarin 2 mg on Mon, Thurs; 4 mg all other days. Check INR in 10 day(s). Patient already scheduled at [facility], patient agreeable to keep appt. Patient verbalizes understanding of anticoagulant dosing instructions and information discussed. Dosing regimen, counseling, and follow-up appointment were provided to the patient. Patient reminded to call with questions or any medication changes. Patient instructed to seek medical attention if any major bleeding/bleeding that persists or worsens. Judy Christine RPH 02/29/24 1445 documented in this encounter [facility] 02-29-2024 History of Present illness Narrative Images from the original note were not included. Outpatient Follow-Up Note Date of Visit: 02/29/2024 PCP: GIL GEE MD Summary of Admission I had the pleasure today of seeing Remi Zarco in the office, in conjunction with, Dr. Barnes, following their recent Coronary artery bypass grafting x3 with left internal mammary artery to left anterior descending, reverse saphenous vein graft to 2nd obtuse marginal, reverse saphenous vein graft to posterior descending artery; ligation left atrial appendage with 40mm Medtronic atrial clip; median sternotomy, endoscopic vein harvest, cardiopulmonary bypass by Dr. Barnes on 02/15/2024 at [facility]. As you recall, Remi Zarco is a 78 y.o. male pt with history of atrial fibrillation on Coumadin, moderate MR, and mildly dilated ascending aorta recently measuring 4.4 cm on echo. At a recent cardiology visit he had been complaining of exertional dyspnea and dizziness and an echocardiogram was performed subsequently which showed new mild LV dysfunction with an EF of 45%. He was set up for cardiac catheterization which was performed earlier this week that demonstrated severe three-vessel coronary artery disease. Patient was seen in consultation by Dr. Barnes that same day in the postprocedural setting. At that time his recent studies were reviewed and surgical revascularization was recommended with coronary artery bypass grafting. Benefits, risks, and alternatives were discussed. Given his history of dilated ascending aorta, a contrast CT chest was obtained preoperatively which showed the mid ascending aorta to have a maximal diameter of 40.5 mm, well below the operative threshold. Therefore, no ascending aortic aneurysm repair was planned to be performed at the time of operation. Patient then returned to the hospital and underwent CABG x3 and left atrial appendage closure on 02/15/2024. Following surgery, patient was admitted to the heart and vascular ICU for close postoperative monitoring. The mechanical ventilator was able to be weaned and patient was subsequently extubated to nasal cannula. By the morning of postop day 1, patient was awake, alert, and up in the chair. He was hemodynamically stable without the supportive vasopressors or inotropics. Patient was started on aspirin, beta-ortiz, statin, and diuretics. He was also restarted on Coumadin, which patient has taken long-term for chronic persistent atrial fibrillation. Mediastinal chest tubes were able to be discontinued, a remaining pleural chest tube was left to suction. Patient was then transferred out of the ICU to the step-down unit later in the day on postop day 1. While on the step-down unit, the remaining pleural chest tube had minimal drainage and no air leak, and was subsequently able to be discontinued. Patient was then up mobilizing more but was slow to progress in terms of his functional capacity. He was evaluated by therapy services who were recommending a discharge disposition of SNF when medically stable. Referrals were made and patient was accepted at [facility]. Initially while on the step-down unit, patient's Willams catheter was partially dislodged and had therefore been removed. Patient was then unable to void throughout the following evening which require reinsertion of Willams catheter. On reinsertion of the urinary catheter, patient was found to have fairly gross hematuria. He was started on Flomax and monitored closely. Hematuria resolved. Void trial was then performed on postop day 4 and patient was able to urinate without difficulty after the catheter was removed. He did have some blood clots in his urine. Patient did have mild brief acute elevation in creatinine postop, though not significant enough to classify as LIZETTE. Diuretics were temporarily held and patient's creatinine returned to with in his baseline range. Gentle diuresis was then resumed, started on his home dose of oral Lasix 20 mg daily. Weight was grossly stable upon restarting oral diuretics. Patient remained in rate controlled atrial fibrillation. Again, this is chronic and persistent for the patient and not a postoperative arrhythmia. Patient's INR was slow to rise so he was therefore started on a heparin drip to bridge to therapeutic INR. Vital signs were otherwise stable, he was afebrile, and was able to wean off supplemental oxygen to room air. His postop leukocytosis resolved. Hemoglobin stabilized in the mid to low 8s. Patient did have some mild thrombocytopenia which resolved. Again, BUN and creatinine were within patient's baseline range.He was tolerating oral intake and had moved his bowels. Patient was seen during morning rounds with Dr. Barnes on 02/19/2024 (postop day 4) and was determined to be stable for discharge. INR on the date of discharge was just 1.2, subtherapeutic. On discussing with Dr. Barnes, he was okay with discharging the patient on Lovenox to bridge to therapeutic INR. A referral was sent to the [facility] clinic to resume outpatient Coumadin management. Patient was discharged on his home dose of oral Lasix. Potassium replacement was not ordered upon discharge as patient had a stable potassium level greater than 4.0 for several days on this same dose of oral Lasix. Follow up labs were ordered to be drawn approximately 1 week from the date of discharge. Patient is to follow up with Cardiothoracic surgery in 7-10 days; and cardiology and primary care in 2-3 weeks. Patient is to call the Cardiothoracic surgery office with any questions or concerns pertaining to his recent surgery. Remi Zarco presents to the office today for his follow-up appointment. On presentation he has very few complaints. He does state that he is slightly more short of breath and he was prior to surgery. He also believes he is more swollen today than he was prior to surgery. His weight has trended up slightly. His energy level is improving in his pain is well controlled he is ambulating more every day he is accompanied by his to today's appointment. He is not having any chest pain or shortness on breath. Past Medical History Past Medical History: Diagnosis Date Atrial fibrillation (CMS-HCC) Disease of thyroid gland Hypercholesteremia Hypertension Hypothyroidism Lung nodule Shortness of breath Visual impairment glasses Allergies Allergies Allergen Reactions Morphine sensitive skin Rosuvastatin Other (See Comments) Other Reaction(s): Muscle Pain Home Meds Prior to Admission medications Medication Sig Start Date End Date Taking? Authorizing Provider acetaminophen (TYLENOL) 325 mg tablet Take 2 tablets (650 mg total) by mouth every 4 (four) hours as needed for pain. 02/19/24 PHILIPP Florez alum-mag hydroxide-simeth (MAALOX) 200-200-20 mg/5 mL suspension Take 15 mL by mouth every 6 (six) hours as needed for indigestion. 02/19/24 PHILIPP Florez ascorbic acid, vitamin C, 250 mg tablet,chewable Chew and swallow. Not In System Ref Prov aspirin 81 mg Take 1 tablet (81 mg total) by mouth in the morning. 02/19/24 PHILIPP Florez atorvastatin (LIPITOR) 40 mg tablet Take 1 tablet (40 mg total) by mouth nightly. 02/19/24 PHILIPP Florez bisacodyL (DULCOLAX) 10 mg suppository Insert 1 suppository (10 mg total) into the rectum daily as needed for constipation (if magnesium hydroxide [MILK OF MAGNESIA] ineffective after 8 hours.) Indications: constipation. 02/19/24 PHILIPP Florez enoxaparin (LOVENOX) 120 mg/0.8 mL syringe Inject 0.74 mL (111 mg total) under the skin Every 12 (twelve) hours. as directed by Amberly HANDY (Medication Therapy Management) 02/09/24 Mc Correia MD eplerenone (INSPRA) 25 mg tablet TAKE 1 TABLET IN THE MORNING 10/30/23 PHILIPP Ng furosemide (LASIX) 20 mg tablet Take 1 tablet (20 mg total) by mouth daily. 10/26/23 Wilder Stallworth PA-C levothyroxine (SYNTHROID, LEVOTHROID) 100 MCG tablet Take by mouth daily. Not In System Ref Prov magnesium hydroxide (MILK OF MAGNESIA) 400 mg/5 mL suspension Take 15 mL by mouth daily as needed (constipation) Indications: constipation. 02/19/24 PHILIPP Florez melatonin (CIRCADIN) 5 mg tablet Take 1 tablet (5 mg total) by mouth nightly as needed (Insomnia). 02/19/24 PHILIPP Florez metoprolol tartrate (LOPRESSOR) 25 mg tablet Take 1 tablet (25 mg total) by mouth every 12 (twelve) hours. 02/19/24 PHILIPP Florez pantoprazole (PROTONIX) 40 mg EC tablet Take 1 tablet (40 mg total) by mouth every morning before breakfast. 02/20/24 PHILIPP Florez sennosides-docusate sodium (SENOKOT-S) 8.6-50 mg Take 1 tablet by mouth in the morning and at bedtime for 14 days Indications: constipation. 02/19/24 03/04/24 PHILIPP Florez tamsulosin (FLOMAX) 0.4 mg capsule Take 1 capsule (0.4 mg total) by mouth nightly. 02/19/24 PHILIPP Florez warfarin (COUMADIN) 4 mg tablet Take 1 tablet (4 mg total) by mouth in the evening. 02/19/24 PHILIPP Florez Physical Examination Vital Signs: BP 126/64 (BP Site: Left Arm, BP Postition: Sitting, BP CUFF SIZE: M (9-13 inches)) Pulse 83 Temp 36.1 C (97 F) (Temporal) Resp 18 Wt 106.6 kg (235 lb) SpO2 96% BMI 31.86 kg/m Wt Readings from Last 2 Encounters: 02/29/24 106.6 kg (235 lb) 02/19/24 102.6 kg (226 lb 3.1 oz) General appearance: Alert and Oriented, Resting Comfortably, and In no apparent distress Heart:S1 S2 and No murmur, click, cely, or rub Lungs:clear and equal bilaterally Abdomen:soft non tender and non distended positive bowel sounds Extremities:pulses strong and equal bilaterally and mild edema Incisions: Median Sternotomy is clean dry and intact with no erythema or drainage, Chest tube sites are healing well and sutures were removed at this time, On palpation, sternum is felt to be stable., and Left SVG incision is CDI with no erythema or drainage Labs CBC: BMP: PT/INR: Results from last 7 days Lab Units 02/24/24 0000 02/23/24 0000 INR 2.1* 2.1* Assessment and Plan Remi Zarco presents today in the office for his follow-up appointment. .Remi Zarco continues to appear fluid overloaded with bilateral lower extremity edema. We will accelerate his diuresis for the next 10 days and he should follow up with Cardiology in the near term future. Remi Zarco was encouraged to continue to increase his activity level as tolerated, and to plan on participating in phase 2 cardiac rehab after he follows up with Cardiology. The patient was encouraged to call our office with any questions or concerns about his recent surgery. Driving and lifting instructions were reviewed with the patient and they verbalized understanding. Remi Zarco will follow up with his primary care physician and Cardiology for ongoing medical management. At this time, Remi Zarco is discharged from our services. If you have any questions or concerns please do not hesitate to call. We thank you again for the referral of this patient and allowing us to participate in their care. [facility] 02/29/24 1417 [facility] Instructions [facility] House - 02/29/2024 1:20 PM EST 1. Please continue to wear Heart Hugger for a total of 4-6 weeks from the date of surgery 2. Please continue to observe a less than 10 pound lifting restriction for a total of 6 weeks from the date of surgery 3. Please follow up with your medical doctors including your edm operator and primary care physician 4. Driving restrictions can be lifted 03/07/2024 At this time the patient is discharged from our services. Please do not hesitate to call with any questions or concerns. documented in this encounter [facility] 02-19-2024 History of Present illness Narrative Updated referral received from Dr. Olaf Pérez on 02/19/24 to notify Amberly HANDY of patient's upcoming discharge. Patient is already active with Amberly JARRETTM through [facility] referral thus Dr. Pérez removed from episode information. Patient admitted to [facility] on 02/15/24 for planned CABG, ligation of MARGY following recent cardiac cath. Patient did experience rate controlled afib post up. Warfarin therapy was resumed post-op on 02/16/24 along w/ subQ heparin for coverage. Patient also experienced hematuria for Willams insertion and team monitored closely. INR at 1.2 today. Patient to be discharged later today to [facility], [facility] Upcoming INR appt previously scheduled on 02/22/24 cx. Fax sent to facility requesting Amberly HANDY receive notification upon patient discharge as in-house provider to manage warfarin while patient is admitted. Anticoagulation episode temporarily resolved. Judy Christine [facility] 02/19/24 1405 documented in this encounter [facility] 02-17-2024 Miscellaneous Notes Contract: [facility] Richa re bladder scan Numeric page sent documented in this encounter [facility] 02-17-2024 Telephone encounter Note Contract: [facility] Richa re bladder scan [facility] 02-17-2024 Telephone encounter Note Numeric page sent [facility] 02-11-2024 History of Present illness Narrative Reviewed medications again. Patient notified of his CT chest tomorrow @ [place]. All questions answered documented in this encounter [facility] 02-10-2024 History of Present illness Narrative LM for a return call documented in this encounter [facility] 02-09-2024 Miscellaneous Notes Yary from Cardiooracic called requesting a call back to discuss the patients up coming procedure on 02/15/[address] Gallardo at [facility]. The patient is going to have Bypass surgery. He is currently off his warfarin and being discharged to home today. Yary can be reached at [phone]. Images from the original note were not included. Patient scheduled for a CABG on 02/15/24. Was already holding warfarin fr a cardiac cath and will need to continue to hold until that time and bridge with Lovenox. Bridge plan developed and Lovenox sent to same pharmacy as other prescriptions today. Added patient to admitted list for upcoming procedures. Also faxed copy of bridge plan instructions to pharmacy to attach to Lovenox prescription. 4:27 PM - left voicemail for aptient explaining that Lovenox was sent in and to begin plan as below. 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 Asked to call back with any questions or concerns. documented in this encounter [facility] 02-09-2024 Telephone encounter Note Yary from Cardiothoracic called requesting a call back to discuss the patients up coming procedure on 02/15/[address] Gallardo at [facility]. The patient is going to have Bypass surgery. He is currently off his warfarin and being discharged to home today. Yary can be reached at [phone]. [facility] 02-09-2024 Telephone encounter Note Images from the original note were not included. Patient scheduled for a CABG on 02/15/24. Was already holding warfarin fr a cardiac cath and will need to continue to hold until that time and bridge with Lovenox. Bridge plan developed and Lovenox sent to same pharmacy as other prescriptions today. Added patient to admitted list for upcoming procedures. Also faxed copy of bridge plan instructions to pharmacy to attach to Lovenox prescription. 4:27 PM - left voicemail for aptient explaining that Lovenox was sent in and to begin plan as below. 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 Asked to call back with any questions or concerns. [facility] 02-08-2024 History of Present illness Narrative 15 minute [id number] follow-up anticoagulation appointment. INR performed in office per protocol. INR 1.4 (goal range: 2.0-3.0). Patient reports: Taking warfarin dosing as documented. Missed or extra doses of warfarin: YES Held x5 days for cath Changes to medications: No Changes to lifestyle (diet / alcohol / smoking / activity): No Recent emergency department visit / hospitalization / health changes / new contraindication to current anticoagulant: No Signs/symptoms of bruising/bleeding or clotting or any intolerable adverse events: No Upcoming procedures: YES Ortho surgery pending--- provider is exploring alternative hospitals for privileges with [place] for sale Anticoagulant prescription needed: No Seen referring provider in the last year Duration of therapy reviewed Assessment: INR is low d/t holding for cath. We will boost x1 post-op and safety check in 2 weeks Plan: Patient instructed to hold warfarin until after heart cath, boost to 6 mg x1, then resume 2 mg Mon/Thurs and 4 mg AOD. Check INR in 2 week(s). Patient is usually an 8 week follow up. Patient verbalizes understanding of anticoagulant dosing instructions and information discussed. Dosing regimen, counseling, and follow-up appointment were provided to the patient. Patient reminded to call with questions or any medication changes. Patient instructed to seek medical attention if any major bleeding/bleeding that persists or worsens. Irene Boland RPH 02/08/24 1043 documented in this encounter [facility] 02-02-2024 Miscellaneous Notes Received order from Irena at the [facility] office. Patient scheduled for cath on 02/09/24 at 1030 AM at [facility] with TLM. Notified Irena. No Covid test required at this time. Pt will need to Hold Warfarin for 5 days with INR check on 02/07. Will send to [facility] to facilitate. Noted. Reviewed with patient last dose of warfarin 02/02. Hold 02/03 through Cath. INR is scheduled for 02/07. Patient v/u and denied further needs at this time. Patient was unaware cath had been scheduled. Noted he should be receiving more information from [facility]. Irene Boland PharmD, BCPS February 02, 2024 2:54 PM Verbal instructions given to pt. Instructed to have labs drawn this week if possible. documented in this encounter [facility] 02-02-2024 Telephone encounter Note Received order from Irena at the [facility] office. Patient scheduled for cath on 02/09/24 at 1030 AM at [facility] with TLM. Notified Irena. No Covid test required at this time. Pt will need to Hold Warfarin for 5 days with INR check on 02/07. Will send to [facility] to facilitate. [facility] 02-02-2024 Telephone encounter Note Noted. Reviewed with patient last dose of warfarin 02/02. Hold 02/03 through Cath. INR is scheduled for 02/07. Patient v/u and denied further needs at this time. Patient was unaware cath had been scheduled. Noted he should be receiving more information from [facility]. Irene Boland PharmD, [facility] February 02, 2024 2:54 PM [facility] Work Phone: 02-02-2024 Telephone encounter Note Verbal instructions given to pt. Instructed to have labs drawn this week if possible. [facility] 01-29-2024 History of Present illness Narrative Remi Hathaway Matthew Date of visit: 01/29/2024 Date of : 1945 Age: 78 y.o. Patient Active Problem List Diagnosis Shortness of breath Essential hypertension Persistent atrial fibrillation (CMS-HCC) veneer taper (current) use of anticoagulants Left ear pain Left ventricular dysfunction Pulmonary hypertension (CMS-HCC) Anginal equivalent (CMS-HCC) Allergies Allergen Reactions Morphine sensitive skin Current Outpatient Medications Medication Sig Dispense Refill ascorbic acid, vitamin C, 250 mg tablet,chewable Chew and swallow. bisoprolol-hydroCHLOROthiazide (ZIAC) 5-6.25 mg per tablet TAKE 1 TABLET IN THE EVENING. 90 tablet 1 eplerenone (INSPRA) 25 mg tablet TAKE 1 TABLET IN THE MORNING 90 tablet 1 furosemide (LASIX) 20 mg tablet Take 1 tablet (20 mg total) by mouth daily. 90 tablet 0 levothyroxine (SYNTHROID, LEVOTHROID) 100 MCG tablet Take by mouth daily. meloxicam (MOBIC) 15 mg tablet Take by mouth as needed. omega 2-pmr-jrf-fish oil 300-1,000 mg capsule Take by mouth. warfarin (COUMADIN) 4 mg tablet Take 0.5-1 tablets (2-4 mg total) by mouth in the evening. as directed by Amberly HANDY (Medication Therapy Management).. 90 tablet 3 No current facility-administered medications for this visit. Chief Complaint Patient presents with Follow-up EST PT F/U 1 YR ECHO TO BE DONE, labs PRIOR TO APPT L/S MAS History of Present Illness I have not seen this 78-year-old previously. He was last in the office 12/2022 Review of echocardiography shows stable aortic root with worsening right ventricular systolic function and mild left ventricular dysfunction. Previous evidence of pulmonary hypertension Patient denies chest pain. He does have shortness of breath when he exerts himself. He denies syncope or palpitations He is retired from [employer]. He is unaccompanied CV TESTING HISTORY: ECHO: Echo complete W/ contrast Result Date: 01/20/2024 Pericardium: There is a small pericardial effusion posteriorally, measuring 0.9 cm. Left Ventricle: Left ventricle appears normal in size. There is moderate concentric increased wall thickness/hypertrophy. Systolic function is mildly decreased with an ejection fraction of 45-50%. Mitral Valve: There is moderate regurgitation. There is no evidence of mitral valve stenosis. Right Ventricle: Right ventricular size is severely dilated. The right ventricular basal diameter is 55.0 mm. Systolic function is normal. Normal tricuspid annular plane systolic excursion. Left Atrium: Left atrium is severely dilated. Left atrium volume index is severely increased. The left atrial volume index is 69.2 mL/m2. Aorta: The aortic root is mildly dilated. Ascending aorta mildly dialted, measuring 4.4 cm. IVC/SVC: The right atrial pressure is estimated at 8 mmHg. IVC mildly dilated, measuring 2.6 cm; and collaspes >50%. Echo complete W/O contrast Result Date: 11/04/2022 Left Ventricle: Systolic function is low normal to mildly decreased with an ejection fraction of 50-55%. The quantitative EF by 2D Yoder biplane is 49%. Mitral Valve: There is moderate regurgitation with a centrally directed jet. Aortic Valve: There is mild regurgitation with eccentrically directed jet. There is no evidence of aortic valve stenosis. Right Ventricle: Right ventricular size is mildly dilated. The right ventricular basal diameter is 48.0 mm. Systolic function is mildly reduced. Aorta: The aortic root is moderately dilated. The sinus of Valsalva is mildly dilated. The ascending aorta is mildly dilated. Tricuspid Valve: The right ventricular systolic pressure is moderate to severely elevated. RVSP calculated at 61 mmHg. RVSP is based on RA pressure of 8 mmHg. There is moderate to severe pulmonary hypertension. STRESS: No results found. HOLTER: No results found. CARDIAC CATH: No results found. CAROTID: No results found. CXR: No results found. Lipid Profile: Lab Results Component Value Date Cholesterol 168 08/20/2022 Cholesterol:HDL Ratio 4.3 08/20/2022 HDL 41 04/13/2015 HDL Cholesterol 39 (L) 08/20/2022 HDL interpretation 04/13/2015 RISK FAVORABLE AVERAGE INCREASED MEN >55 MG/DL 35-55 MG/DL < 35 MG/DL FEMALE >65 MG/DL 45-65 MG/DL < 45 MG/DL Triglycerides 184 (H) 08/20/2022 Triglycerides 54 04/13/2015 LDL 147 04/13/2015 LDL (calc) 92 08/20/2022 LDL interp 04/13/2015 RECOMMENDED: <130 MG/DL MODERATE RISK: 130-159 MG/DL HIGH RISK: >160 MG/DL No data recorded No data recorded No data recorded EK01/29/2024 atrial fibrillation with rate of 66 beats per minute. Poor anterior R-wave progression Past Medical History: Diagnosis Date Atrial fibrillation ([facility]) Disease of thyroid gland Hypercholesteremia Hypertension Hypothyroidism Lung nodule Shortness of breath Visual impairment glasses Past Surgical History: Procedure Laterality Date ANKLE FUSION Left 01/06/2022 COLONOSCOPY N/A 04/25/2021 Performed by Tr Lynch DO at [facility] PERINEUM N/A 04/25/2021 Performed by Tr Lynch DO at [facility] TOTAL KNEE BILATERAL SHOULDER SURGERY Bilateral x 4, left shoulder replaced Family History Problem Relation Age of Onset Heart failure Mother Heart attack Father Lung cancer Father Liver cancer Maternal Grandmother Diabetes Paternal Grandmother Social History Socioeconomic History Marital status: Single Spouse name: Not on file Number of children: Not on file Years of education: Not on file Highest education level: Not on file Occupational History Not on file Tobacco Use Smoking status: Former Types: Cigarettes Smokeless tobacco: Never Vaping Use Vaping status: Never Used Substance and Sexual Activity Alcohol use: Yes Comment: drinks occasionally Drug use: No Sexual activity: Defer Other Topics Concern Caffeine Use Yes Comment: 1 cup daily Social History Narrative Not on file Social Drivers of Health Financial Resource Strain: Not on file Food Insecurity: No Food Insecurity (01/29/2024) Hunger Screening Food Insecurity - Worry: Never True Food Insecurity - Inability: Never True Transportation Needs: Not on file Physical Activity: Not on file Stress: Not on file Social Connections: Not on file Interpersonal Safety: Not on file Housing Instability: Not on file Review of Systems Review of Systems Constitutional: Negative. HENT: Positive for hearing loss. Eyes: Negative. Cardiovascular: Negative. Vascular: Negative. Respiratory: Positive for shortness of breath. Endocrine: Negative. Hematologic/Lymphatic: Negative. Does not bruise/bleed easily. Skin: Negative. Musculoskeletal: Negative. Negative for back pain. Gastrointestinal: Negative. Neurological: Positive for dizziness, loss of balance and numbness. Psychiatric/Behavioral: Positive for depression. Allergic/Immunologic: Positive for environmental allergies. CARDIOVASCULAR: Please review HPI. Physical Examination General appearance: Alert, oriented and cooperative. In no acute distress. Skin: Warm and dry to touch. Respiratory: Bilateral diminished Cardiovascular: RRR with normal S1 and S2 with no murmurs. Musculoskeletal: Scant bilateral lower extremity edema. Ambulates with cane secondary to left ankle VITAL SIGNS: BP 138/82 (BP Site: Left Arm, BP Postition: Sitting) Pulse 88 Ht 182.9 cm (6') Wt 106.1 kg (233 lb 12.8 oz) SpO2 97% BMI 31.71 kg/m No orders of the defined types were placed in this encounter. There are no discontinued medications. IMPRESSIONS/PLAN 1. Atrial fibrillation ([facility]) - POCT EKG 2. Persistent atrial fibrillation ([facility]) 3. Essential hypertension - Basic Metabolic Panel; Future 4. Shortness of breath - CBC; Future 5. Pulmonary hypertension ([facility]) 6. Left ventricular dysfunction 7. 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 veneer taper (current) use of anticoagulants - Protime-INR; Future 1. Persistent atrial fibrillation -rate controlled -warfarin 2. Primary hypertension 3. Hypothyroid -on Synthroid 4. Hyperlipidemia -labs 11/2023 --patient previously on rosuvastatin but this is not a current medicine 5. Chronic heart failure with mildly reduced ejection fraction 6. Ascending aorta measuring 4.4 cm on 01/20/2024 echocardiogram which is a decrease from previous 7. Ejection fraction by Yoder biplane 49% last year; estimated ejection fraction 45-50% 01/2024 8. Right ventricular systolic pressure has it at 61 mmHg with enlarged right ventricle on 01/2024 echocardiogram/[ulm hypertension 9. Shortness of breath which may represent patient's anginal equivalent in a 78-year-old with risk factors of hypertension and hyperlipidemia with left ventricular dysfunction Have recommended right and left heart catheterization. The risks/benefits/alternatives discussed with patient TODAYS ORDERS Orders Placed This Encounter Procedures Basic Metabolic Panel CBC Protime-INR POCT EKG FOLLOW UP Return for After catheterization. PCP: GIL GEE MD Referring Physician: Gil Gee MD [address] [place] [address] This was a complex visit with more than 40 minutes spent Cath ordered today per LLD (copies of orders placed in media). Pt does not want to schedule at this time, LLD is aware and will call the office back when he is ready to proceed. [facility] Miscellaneous Notes Left message for patient to remind them to bring their most current medication list with them to their appointment. documented in this encounter [facility] 01-28-2024 Telephone encounter Note Left message for patient to remind them to bring their most current medication list with them to their appointment. [facility] History of Present illness Narrative Associated Problem(s): Statin myopathy Severe side effects from crestor and stopped. Associated Problem(s): Medicare annual wellness visit, subsequent Reviewed labs. Discussed proper diet and regular aerobic exercise. Need aerobic exercise 5-6 days a week for 30 minutes at a time. Smaller portions and limit total calories. Tetanus every 10 years. Advised not to smoke. Images from the original note were not included. Subjective Patient ID: Remi Zarco is a 78 y.o. male who presents for Medicare Annual Wellness Visit Subsequent (Wellness/). Presents for medicare annual wellness visit. Weight up 3 pounds in the past year. Tries to stay active around house and ride bike several days a week. Tries to watch diet and eat healthy. Increased fruits and vegetables. Smaller portions and limits snacking. Tries to limit total daily calories. Reviewed recent labs. Review of Systems Constitutional: Negative for fatigue. Respiratory: Negative for cough, shortness of breath and wheezing. Cardiovascular: Negative for chest pain and palpitations. Gastrointestinal: Negative for abdominal pain, diarrhea, nausea and vomiting. Genitourinary: Negative for dysuria. Objective Physical Exam Constitutional: General: He is not in acute distress. Appearance: Normal appearance. HENT: Head: Normocephalic. Right Ear: Tympanic membrane and ear canal normal. Left Ear: Tympanic membrane and ear canal normal. Eyes: Extraocular Movements: Extraocular movements intact. Pupils: Pupils are equal, round, and reactive to light. Cardiovascular: Rate and Rhythm: Normal rate and regular rhythm. Heart sounds: No murmur heard. No friction rub. No gallop. Pulmonary: Breath sounds: Normal breath sounds. No wheezing, rhonchi or rales. Abdominal: General: Bowel sounds are normal. There is no distension. Palpations: Abdomen is soft. Tenderness: There is no abdominal tenderness. There is no guarding or rebound. Musculoskeletal: General: Normal range of motion. Left lower leg: No edema. Neurological: General: No focal deficit present. Mental Status: He is alert. Cranial Nerves: No cranial nerve deficit. Deep Tendon Reflexes: Reflexes normal. Assessment/Plan Problem List Items Addressed This Visit Medicare annual wellness visit, subsequent - Primary Reviewed labs. Discussed proper diet and regular aerobic exercise. Need aerobic exercise 5-6 days a week for 30 minutes at a time. Smaller portions and limit total calories. Tetanus every 10 years. Advised not to smoke. documented in this encounter [facility] 01-15-2024 History of Present illness Narrative 15 minute [id number] follow-up anticoagulation appointment. INR performed in office per protocol. INR 2.3 (goal range: 2.0-3.0). Patient reports: Taking warfarin [...] and 4 mg AOD. Check INR in 8 week(s). Patient verbalizes understanding of anticoagulant dosing instructions and information discussed. Dosing regimen, counseling, and follow-up appointment were provided to the patient. Patient reminded to call with questions or any medication changes. Patient instructed to seek medical attention if any major bleeding/bleeding that persists or worsens. Irene Boland RPH 01/15/24 0807 documented in this encounter [facility] 12-31-2023 Miscellaneous Notes Received call from Courtney at central scheduling today. Order for echo ordered back at [facility] 12/2022 has . Echo was to be completed in a year but pt was not set up until 01/20/2024 for that. Created new order with expected date of day test is being done under the appt encounter with co-sign to ordering provider so scheduling can complete on their end documented [facility] this [facility] 12-31-2023 Telephone encounter Note Received call from Courtney at central scheduling today. Order for echo ordered back at [facility] 12/2022 has . Echo was to be completed in a year but pt was not set up until 01/20/2024 for that. Created new order with expected date of day test is being done under the appt encounter with co-sign to ordering provider so scheduling can complete on their end [facility] 11-20-2023 History of Present illness Narrative 15 minute kcik-[id number] follow-up anticoagulation appointment. INR performed in office per protocol. INR 2.3 (goal range: 2.0-3.0). Patient reports: Taking warfarin dosing as documented. Missed or extra doses of warfarin: No Changes to medications: No Changes to lifestyle (diet / alcohol / smoking / activity): No Recent emergency department visit / hospitalization / health changes / new contraindication to current anticoagulant: No Signs/symptoms of bruising/bleeding or clotting or any intolerable adverse events: No Upcoming procedures: YES Potenitally end of January-- nothing scheduled yet. Patient will keep [facility] notified Anticoagulant prescription needed: No Seen referring provider in the last year Duration of therapy reviewed Assessment: INR is remaining stable in therapeutic range on current warfarin regimen. Plan: Patient instructed to continue warfarin 2 mg Mon/Thurs and 4 mg AOD. Check INR in 8 week(s). Patient verbalizes understanding of anticoagulant dosing instructions and information discussed. Dosing regimen, counseling, and follow-up appointment were provided to the patient. Patient reminded to call with questions or any medication changes. Patient instructed to seek medical attention if any major bleeding/bleeding that persists or worsens. 0 Irene Boland RPH 11/20/23 0812 documented in this encounter [facility] 10-30-2023 History of Present illness Narrative 15 minute [id number] follow-up anticoagulation appointment. INR performed in office per protocol. INR 2.3 (goal range: 2.0-3.0). Patient reports: Taking warfarin dosing as documented. Missed or extra doses of warfarin: No Changes to medications: No Changes to lifestyle (diet / alcohol / smoking / activity): No Recent emergency department visit / hospitalization / health changes / new contraindication to current anticoagulant: No Signs/symptoms of bruising/bleeding or clotting or any intolerable adverse events: No Upcoming procedures: YES Patient reports dentist is having him hold despite [facility] notes indicated holding was NOT to happen for procedure on Thursday. Discussed with patient unable to obtain clearance this soon as dentist did not notify [facility] of change in place. Discussed risk benefit is between him and dentist given this. Anticoagulant prescription needed: No Seen referring provider in the last year Duration of therapy reviewed Assessment: INR is remaining stable in therapeutic range on current warfarin regimen. Plan: Patient instructed to continue warfarin 2 mg Thu/ and 4 mg AOD. Check INR in 2 week(s). Patient is usually an 8 week follow up. Patient verbalizes understanding of anticoagulant dosing instructions and information discussed. Dosing regimen, counseling, and follow-up appointment were provided to the patient. Patient reminded to call with questions or any medication changes. Patient instructed to seek medical attention if any major bleeding/bleeding that persists or worsens. Irene Boland RPH 10/30/23 0811 documented in this encounter [facility] 10-28-2023 History of Present illness Narrative Associated Problem(s): Persistent atrial fibrillation (HCC) (CMS/HCC) In NSR and monitor. Continue medication and follow up with cardiology. Associated Problem(s): Osteoarthritis, generalized Pain in multiple joints but stable. Use mobic PRN. Associated Problem(s): Benign hypertension (CMS/HCC) BP controlled and monitor PRN. Images from the original note were not included. Subjective Patient ID: Remi Zarco is a 78 y.o. male who presents for Follow-up (6MO MELOXICAM REFILL NEEDED TO [facility] ORDER ONLY PLEASE). Follow up HTN, afib, and OA. Patient doing well today. Checking BP PRN and typically controlled. BP slightly elevated today. Taking medication daily and tolerating without side effects. Afib stable. No palpitations or heart racing. Not lightheaded or dizzy. OA stable. Stiffness in neck, back, hands, hips, and knees. Worse in am and if sit prolonged. Improved once up and moving. Using mobic and helps. Review of Systems Constitutional: Negative for fatigue. Respiratory: Negative for cough, shortness of breath and wheezing. Cardiovascular: Negative for chest pain and palpitations. Gastrointestinal: Negative for abdominal pain, diarrhea, nausea and vomiting. Genitourinary: Negative for dysuria. Objective Physical Exam Constitutional: General: He is not in acute distress. Appearance: Normal appearance. HENT: Head: Normocephalic. Right Ear: Tympanic membrane and ear canal normal. Left Ear: Tympanic membrane and ear canal normal. Eyes: Extraocular Movements: Extraocular movements intact. Pupils: Pupils are equal, round, and reactive to light. Cardiovascular: Rate and Rhythm: Normal rate and regular rhythm. Heart sounds: No murmur heard. No friction rub. No gallop. Pulmonary: Breath sounds: Normal breath sounds. No wheezing, rhonchi or rales. Abdominal: General: Bowel sounds are normal. There is no distension. Palpations: Abdomen is soft. Tenderness: There is no abdominal tenderness. There is no guarding or rebound. Musculoskeletal: Left lower leg: No edema. Neurological: Mental Status: He is alert. Assessment/Plan Problem List Items Addressed This Visit Benign hypertension (CMS/HCC) - Primary BP controlled and monitor PRN. Adult hypothyroidism (CMS/HCC) Relevant Orders TSH T4, free T3, free Persistent atrial fibrillation (HCC) (CMS/HCC) In NSR and monitor. Continue medication and follow up with cardiology. Primary osteoarthritis of left shoulder Relevant Medications meloxicam (Mobic) 15 MG tablet Osteoarthritis, generalized Pain in multiple joints but stable. Use mobic PRN. Encounter for long-term current use of medication Relevant Orders Basic metabolic panel CBC and differential Hepatic function panel Dyslipidemia (CMS/HCC) Relevant Orders Lipid panel documented in this encounter [facility] 10-26-2023 Miscellaneous Notes [facility] 12/19/22 BMP 02/10/23 Mag 08/20/22 Labs pended, letter printed and mailed to patient. documented in this encounter [facility] 10-26-2023 Telephone encounter Note [facility] 12/19/22 BMP 02/10/23 Mag 08/20/22 Labs pended, letter printed and mailed to patient. [facility] 10-07-2023 Miscellaneous Notes Patient called for a refill on Jantoven 4 mg, 90 day supply, to be called in to [facility] at [phone], fax: [phone]. Pt was insistent that he didn't have any refills left, however group underwriter informed him he still may have 1 refill left. Patient saw referring provider December,. Noted. Refill sent. Irene Boland PharmD, [facility] October 07, 2023 10:21 AM documented in this encounter [facility] 10-07-2023 Telephone encounter Note Patient called for a refill on Jantoven 4 mg, 90 day supply, to be called in to [facility] at [phone], fax: [phone]. Pt was insistent that he didn't have any refills left, however group underwriter informed him he still may have 1 refill left. Patient saw referring provider December,. [facility] 10-07-2023 Telephone encounter Note Noted. Refill sent. Irene Boland PharmD, [facility] October 07, 2023 10:21 AM [facility] 09-02-2023 History of Present illness Narrative 15 minute jcsn-ai-[id number] follow-up anticoagulation appointment. INR performed in office per protocol. INR 2.1 (goal range: 2.0-3.0). Patient reports: Taking warfarin dosing as documented. Missed or extra doses of warfarin: No Changes to medications: No Changes to lifestyle (diet / alcohol / smoking / activity): No Recent emergency department visit / hospitalization / health changes / new contraindication to current anticoagulant: No Signs/symptoms of bruising/bleeding or clotting or any intolerable adverse events: No Upcoming procedures: YES Seeing dentist today to fix tooth Anticoagulant prescription needed: No Seen referring provider in the last year Duration of therapy reviewed Assessment: INR is remaining stable in therapeutic range on current warfarin regimen. Plan: Patient instructed to continue warfarin 2 mg Mon/Thurs and 4 mg AOD. Check INR in 8 week(s). Patient verbalizes understanding of anticoagulant dosing instructions and information discussed. Dosing regimen, counseling, and follow-up appointment were provided to the patient. Patient reminded to call with questions or any medication changes. Patient instructed to seek medical attention if any major bleeding/bleeding that persists or worsens. Irene Boland RPH 09/02/23 0805 documented in this encounter [facility] 07-10-[facility]23 History of Present illness Narrative 15 minute zsfb-rp-ewmy follow-up anticoagulation appointment. INR performed in office per protocol. INR 2.6 (goal range: 2.0-3.0). Patient reports: Taking warfarin [...] and 4 mg AOD. Check INR in 8 week(s). Patient verbalizes understanding of anticoagulant dosing instructions and information discussed. Dosing regimen, counseling, and follow-up appointment were provided to the patient. Patient reminded to call with questions or any medication changes. Patient instructed to seek medical attention if any major bleeding/bleeding that persists or worsens. Beck Weeks RPH 07/10/23 0806 documented in this encounter [facility] History of Present illness Narrative 15 minute [id number] follow-up anticoagulation appointment. INR performed in office [...] RPH 05/22/23 0805 documented in this encounter [facility] 04-03-2023 History of Present illness Narrative 15 minute [id number] follow-up anticoagulation appointment. INR performed in office [...] RPH 04/03/23 0807 documented in this encounter [facility] 03-11-2023 Miscellaneous Notes Patient called requesting a refill of his warfarin 4 mg tablets for 90 days to [facility] mail order. Last saw his referring provider 12/19/22. Noted. Refill sent to [facility] as requested for warfarin 4 mg tabs. Last OV: 12/19/22 documented in this encounter [facility] 03-11-2023 Telephone encounter Note Patient called requesting a refill of his warfarin 4 mg tablets for 90 days to [facility] mail order. Last saw his referring provider 12/19/22. [facility] 03-11-2023 Telephone encounter Note Noted. Refill sent to [facility] as requested for warfarin 4 mg tabs. Last OV: 12/19/22 [facility] 03-10-2023 Miscellaneous Notes ----- Message from Brad Greer MD sent at 03/09/2023 4:58 PM EST ----- Okay to proceed with low risk ----- Message ----- From: Davion Jackson RN Sent: 02/09/2023 9:37 AM EST To: MD JUDITH Santos ----- Message ----- From: Winifred Melissa RPH Sent: 02/06/2023 4:00 PM EST To: [facility] Clinical Staff Clearance received 02/06/23 from Amberly via [facility] inSMS Assist documented in this encounter [facility] 03-10-2023 Telephone encounter Note ----- Message from Brad Greer MD sent at 03/09/2023 4:58 PM EST ----- Okay to proceed with low risk ----- Message ----- From: Davion Jackson RN Sent: 02/09/2023 9:37 AM EST To: MD JUDITH Santos ----- Message ----- From: Winifred Melissa RPH Sent: 02/06/2023 4:00 PM EST To: [facility] Clinical Staff Clearance received 02/06/23 from Amberly via [facility] [employer] [facility] 11-09-2022 Evaluation note Encounter Date Diagnosis Assessment Notes Nov, Dehiscence of operative wound, initial encounter (ICD-10 - T81.31XA) Caring for a surgical wound material was printed Keep the wound clean and dry. Leave the urgent care dressing on until tomorrow. Tomorrow you may change the dressing. You may apply antibiotic ointment to the wound. Keep your appointment with Dr. Hernandez on Thursday as scheduled. Nov, Surgical wound present (ICD-10 - T14.8XXA) [facility] 04-05-2023 NotePROCEDURE: XR FOOT LT MIN [...] Electronically authenticated by: YOU NEWELL Date: 2022-06-11 14:[address] [place], [place] [id number] NotePROCEDURE: XR FOOT LT MIN 3 VIEWS, [...] Electronically authenticated by: GERARDO AUGUSTIN Date: 2022-04-08 11:49[facility]01-31-2023 NotePROCEDURE: XR FOOT LT MIN 3 [...] Electronically authenticated by: GERARDO AUGUSTIN Date: 2022-04-08 11:49[facility]12-27-2022 NotePROCEDURE: XR FOOT LT MIN 3 [...] Electronically authenticated by: YOU NEWELL Date: 2022-03-04 16:58[facility]12-14-2022 NotePROCEDURE: XR FOOT LT MIN 3 [...] Electronically authenticated by: GERARDO AUGUSTIN Date: 2022-02-19 09:16[facility]11-30-2022 NotePROCEDURE: XR FOOT LT MIN 3 [...] Electronically authenticated by: GERARDO AUGUSTIN Date: 2022-02-05 06:48[facility]10-31-2022 NotePROCEDURE: XR FOOT LT 2V COMPARISON: 01/24/2021 HISTORY: Pain FINDINGS: 2 minute 27 seconds of fluoroscopy. 57 images. Fluoroscopic images demonstrate triple arthrodesis with posterior calcaneal osteotomy and subtalar fusion. Placement of a wedge spacer in the medial cuneiform. IMPRESSION: Images from triple arthrodesis Electronically authenticated by: YOU NEWELL Date: 2022-01-06 15:43[facility]10-31-2022 NotePROCEDURE: XR FOOT LT MIN 3 [...] Electronically authenticated by: YOU NEWELL Date: 2022-01-06 13:01[facility]10-31-2022 NotePROCEDURE: XR FOOT LT MIN 3 [...] Electronically authenticated by: YOU NEWELL Date: 2022-01-06 13:01[facility]2022 NoteHNO ID: [id number] Author: Darrel Almendarez DPM Service: ? Author [...] care for the patient. [facility] History of Present illness Narrative* Darrel Almendarez [...] , ankle All questions were answered. Remi Fairchild Matthew appeared to be well informed. Greater than 50% of the visit was spent face to face counseling and/or coordinating care for the patient. Darrel [facility]mendarez DPM [facility] NoteHNO ID: [id number] Author: Darrel Almendarez DPM Service: ? Author [...] and/or coordinating care for the patient. [facility] History of Present illness Narrative* Darrel [...] bracing such as A.S.O. (Ankle Stabilizing Orthosis) -Elian- which may support hind foot All questions were answered. Remi Zarco appeared to be well informed. Greater than 50% of the visit was spent face to face counseling and/or coordinating care for the patient. Darrel Almendarez DPM [facility]22 NoteHNO ID: [id number] Author: RT Lorenzo(R) Service: ? Author Type: [...] BY: RT Lorenzo(R) July 10, 2021 12:44 [facility]05-04-2022 History of Present illness Narrative* RT Lorenzo(R) [...] 10, 2021 12:44 PM [facility]22 NoteHNO ID: [id number] Author: Manuel Saucedo DPM Service: ? Author Type: Physician Type: Progress Notes Filed: 06/14/2021 1:59 PM Note Text: [facility] Department [facility]oped[facility] Orthopedic Surgery Name: Remi Zarco Date [...] brought in radiographs and a CT from [place] which demonstrate a valgus tilt of the [...] fix heis shoulder before he left for [place]. Discussed Dr. Torres but he does not want to drive to [facility]. Suggested he see Dr. Almendarez to [...] and decision planning for surgical invention [facility]UPIND[facility] History of Present illness Narrative* Manuel Saucedo DPM - 06/14/2021 1:53 PM EDT [facility] Department of Orthopedics [facility] Orthopedic Surgery Name: Remi Zarco Date [...] brought in radiographs and a CT from [place] which demonstrate a valgus tilt of the [...] fix heis shoulder before he left for [place]. Discussed Dr. Torres but he does not want to drive to [facility]. Suggested he see Dr. Almendarez to [...] invention Manuel Saucedo DPM [facility] Diagnosis Acquired valgus deformity of left ankle- Primary Ankle instability, left Chronic pain of left ankle [facility] Diagnosis DJD (degenerative joint disease), ankle and foot, left- Primary Acquired valgus deformity of left ankle PTTD (posterior tibial tendon dysfunction) Other disorders of synovium, tendon, and bursa Difficulty walking Difficulty in walking [facility]* Diagnosis Left ankle pain, unspecified chronicity DJD (degenerative joint disease), ankle and foot, left [facility]* Diagnosis DJD (degenerative joint disease), ankle and foot, left- Primary Osteonecrosis (HCC) Aseptic necrosis of bone, site unspecified PTTD (posterior tibial tendon dysfunction) Other disorders of synovium, tendon, and bursa Acquired valgus deformity of left ankle Difficulty walking Difficulty in walking Ankle instability, left Chronic pain of left ankle [facility] noteNo assessment information availableUniversity [facility]als [facility] Work Phone: Evaluation note* Diagnosis Benign hypertension (CMS/HCC)- Primary Essential hypertension, benign Persistent atrial fibrillation (HCC) (CMS/HCC) Atrial fibrillation Osteoarthritis, generalized DJD (degenerative joint disease), ankle and foot, left Benign hypertension (CMS/HCC)- Primary Essential hypertension, benign Persistent atrial fibrillation (HCC) (CMS/HCC) Atrial fibrillation Osteoarthritis, generalized Primary osteoarthritis of left shoulder Adult hypothyroidism (CMS/HCC) Unspecified hypothyroidism Dyslipidemia (CMS/HCC) Other and unspecified hyperlipidemia Encounter for long-term current use of medication Medicare annual wellness visit, subsequent- Primary Statin myopathy Toxic myopathy documented in this encounter [facility]* Diagnosis Benign hypertension (CMS/HCC)- Primary Essential hypertension, benign Persistent atrial fibrillation (HCC) (CMS/HCC) Atrial fibrillation Osteoarthritis, generalized Primary osteoarthritis of left shoulder Adult hypothyroidism (CMS/HCC) Unspecified hypothyroidism Dyslipidemia (CMS/HCC) Other and unspecified hyperlipidemia Encounter for long-term current use of medication documented in this encounter [facility]* Diagnosis 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 [facility]* Diagnosis Persistent atrial fibrillation (CMS-HCC)- Primary Atrial fibrillation nursing home (current) use of anticoagulants Long-term (current) use of anticoagulants Anticoagulated on Coumadin documented in this encounter [facility]* Diagnosis Benign hypertension (CMS/HCC)- Primary Essential hypertension, benign Persistent atrial fibrillation (HCC) (CMS/HCC) Atrial fibrillation Osteoarthritis, generalized DJD (degenerative joint disease), ankle and foot, left Benign hypertension (CMS/HCC)- Primary Essential hypertension, benign Persistent atrial fibrillation (HCC) (CMS/HCC) Atrial fibrillation Osteoarthritis, generalized Primary osteoarthritis of left shoulder Adult hypothyroidism (CMS/HCC) Unspecified hypothyroidism Dyslipidemia (CMS/HCC) Other and unspecified hyperlipidemia Encounter for long-term current use of medication Medicare annual wellness visit, subsequent- Primary Statin myopathy Toxic myopathy 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)- Primary Benign hypertension (CMS/HCC) Essential hypertension, benign Persistent atrial fibrillation (HCC) (CMS/HCC) Atrial fibrillation Osteoarthritis, generalized Pulmonary hypertension (CMS/HCC) Other chronic pulmonary heart diseases Chronic HFrEF (heart failure with reduced ejection fraction) (CMS/HCC) documented in this encounter [facility]* Diagnosis Persistent atrial fibrillation (CMS-HCC)- Primary Atrial fibrillation veneer taper (current) use of anticoagulants Long-term (current) use of anticoagulants Anticoagulated on Coumadin documented [facility] this [facility]* Diagnosis Coronary artery disease involving [place] coronary artery of [place] heart without angina pectoris- Primary Persistent atrial fibrillation (CMS-HCC) Atrial fibrillation Essential hypertension Unspecified essential hypertension Chronic heart failure with preserved ejection fraction (CMS-HCC) documented in this encounter [facility]* Diagnosis Benign hypertension (CMS/HCC)- Primary Essential hypertension, benign Persistent atrial fibrillation (HCC) (CMS/HCC) Atrial fibrillation Osteoarthritis, generalized DJD (degenerative joint disease), ankle and foot, left Benign hypertension (CMS/HCC)- Primary Essential hypertension, benign Persistent atrial fibrillation (HCC) (CMS/HCC) Atrial fibrillation Osteoarthritis, generalized Primary osteoarthritis of left shoulder Adult hypothyroidism (CMS/HCC) Unspecified hypothyroidism Dyslipidemia (CMS/HCC) Other and unspecified hyperlipidemia Encounter for long-term current use of medication Medicare annual wellness visit, subsequent- Primary Statin myopathy Toxic myopathy 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)- Primary Benign hypertension (CMS/HCC) Essential hypertension, benign Persistent atrial fibrillation (HCC) (CMS/HCC) Atrial fibrillation Osteoarthritis, generalized Pulmonary hypertension (CMS/HCC) Other chronic pulmonary heart diseases Chronic HFrEF (heart failure with reduced ejection fraction) (CMS/HCC) Onychomycosis- Primary Dermatophytosis of nail [facility] Diagnosis Persistent atrial fibrillation (CMS-HCC)- Primary Atrial fibrillation nursing home (current) use of anticoagulants Long-term (current) use of anticoagulants Anticoagulated on Coumadin documented in this encounter [facility]* Diagnosis nursing home (current) use of anticoagulants Long-term (current) use of anticoagulants Essential hypertension Unspecified essential hypertension Persistent atrial fibrillation (CMS-HCC) Atrial fibrillation documented in this encounter [facility]* Diagnosis Essential hypertension- Primary Unspecified essential hypertension Persistent atrial fibrillation (CMS-HCC) Atrial fibrillation veneer taper (current) use of anticoagulants Long-term (current) use of anticoagulants documented in this encounter [facility]* Diagnosis Essential hypertension Unspecified essential hypertension Atrial fibrillation (CMS-HCC) documented in this encounter [facility]* Diagnosis Essential hypertension- Primary Unspecified essential hypertension Persistent atrial fibrillation (CMS-HCC) Atrial fibrillation veneer taper (current) use of anticoagulants Long-term (current) use of anticoagulants documented in this encounter [facility]* Diagnosis Essential hypertension- Primary Unspecified essential hypertension Persistent atrial fibrillation (CMS-HCC) Atrial fibrillation nursing home (current) use of anticoagulants Long-term (current) use of anticoagulants documented in this encounter [facility]* Diagnosis Essential hypertension- Primary Unspecified essential hypertension Persistent atrial fibrillation (CMS-HCC) Atrial fibrillation veneer taper (current) use of anticoagulants Long-term (current) use of anticoagulants documented in this encounter [facility]* Diagnosis Atrial fibrillation (CMS-HCC)- Primary Persistent atrial fibrillation (CMS-HCC) Atrial fibrillation Essential hypertension Unspecified essential hypertension Shortness of breath Pulmonary hypertension (CMS-HCC) Other chronic pulmonary heart diseases Left ventricular dysfunction Left heart failure Anginal equivalent (CMS-HCC) veneer taper (current) use of anticoagulants Long-term (current) use of anticoagulants documented in this encounter [facility]* Diagnosis Pulmonary hypertension (CMS-HCC) Other chronic pulmonary heart diseases Anginal equivalent (CMS-HCC) Left ventricular dysfunction Left heart failure Essential hypertension- Primary Unspecified essential hypertension Persistent atrial fibrillation (CMS-HCC) Atrial fibrillation nursing home (current) use of anticoagulants Long-term (current) use of anticoagulants Pulmonary hypertension (CMS-HCC) Other chronic pulmonary heart diseases Anginal equivalent (CMS-HCC) Left ventricular dysfunction Left heart failure documented in this encounter [facility]* Diagnosis Persistent atrial fibrillation (CMS-HCC)- Primary Atrial fibrillation veneer taper (current) use of anticoagulants Long-term (current) use of anticoagulants documented in this encounter [facility]* Diagnosis Aortic dilatation (CMS-HCC)- Primary documented in this encounter [facility]* Diagnosis Essential hypertension- Primary Unspecified essential hypertension Persistent atrial fibrillation (CMS-HCC) Atrial fibrillation nursing home (current) use of anticoagulants Long-term (current) use of anticoagulants Anticoagulated on Coumadin documented in this encounter [facility]* Diagnosis Essential hypertension Unspecified essential hypertension documented in this encounter [facility]* Diagnosis Benign hypertension (CMS/HCC)- Primary Essential hypertension, benign Persistent atrial fibrillation (HCC) (CMS/HCC) Atrial fibrillation Osteoarthritis, generalized DJD (degenerative joint disease), ankle and foot, left Benign hypertension (CMS/HCC)- Primary Essential hypertension, benign Persistent atrial fibrillation (HCC) (CMS/HCC) Atrial fibrillation Osteoarthritis, generalized Primary osteoarthritis of left shoulder Adult hypothyroidism (CMS/HCC) Unspecified hypothyroidism Dyslipidemia (CMS/HCC) Other and unspecified hyperlipidemia Encounter for long-term current use of medication Medicare annual wellness visit, subsequent- Primary Statin myopathy Toxic myopathy 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)- Primary Benign hypertension (CMS/HCC) Essential hypertension, benign Persistent atrial fibrillation (HCC) (CMS/HCC) Atrial fibrillation Osteoarthritis, generalized Pulmonary hypertension (CMS/HCC) Other chronic pulmonary heart diseases Chronic HFrEF (heart failure with reduced ejection fraction) (CMS/HCC) Adult hypothyroidism (CMS/HCC)- Primary Unspecified hypothyroidism documented in this encounter [facility]* Diagnosis Persistent atrial fibrillation (CMS-HCC)- Primary Atrial fibrillation documented [facility] this encounter [facility]* Diagnosis Ischemic cardiomyopathy- Primary Other specified forms of chronic ischemic heart disease documented in this encounter [facility]* Diagnosis Persistent atrial fibrillation (CMS-HCC)- Primary Atrial fibrillation nursing home (current) use of anticoagulants Long-term (current) use of anticoagulants Anticoagulated on Coumadin documented in this encounter [facility]* Diagnosis Benign hypertension (CMS/HCC)- Primary Essential hypertension, benign Persistent atrial fibrillation (HCC) (CMS/HCC) Atrial fibrillation Osteoarthritis, generalized DJD (degenerative joint disease), ankle and foot, left Benign hypertension (CMS/HCC)- Primary Essential hypertension, benign Persistent atrial fibrillation (HCC) (CMS/HCC) Atrial fibrillation Osteoarthritis, generalized Primary osteoarthritis of left shoulder Adult hypothyroidism (CMS/HCC) Unspecified hypothyroidism Dyslipidemia (CMS/HCC) Other and unspecified hyperlipidemia Encounter for long-term current use of medication Medicare annual wellness visit, subsequent- Primary Statin myopathy Toxic myopathy 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)- Primary Benign hypertension (CMS/HCC) Essential hypertension, benign Persistent atrial fibrillation (HCC) (CMS/HCC) Atrial fibrillation Osteoarthritis, generalized Pulmonary hypertension (CMS/HCC) Other chronic pulmonary heart diseases Chronic HFrEF (heart failure with reduced ejection fraction) (CMS/HCC) Benign hypertension (CMS/HCC)- Primary Essential hypertension, benign Chronic HFrEF (heart failure with reduced ejection fraction) (CMS/HCC) Persistent atrial fibrillation (HCC) (CMS/HCC) Atrial fibrillation Osteoarthritis, generalized 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) documented in this encounter [facility]* Diagnosis Benign hypertension (CMS/HCC)- Primary Essential hypertension, benign Persistent atrial fibrillation (HCC) (CMS/HCC) Atrial fibrillation Osteoarthritis, generalized DJD (degenerative joint disease), ankle and foot, left Benign hypertension (CMS/HCC)- Primary Essential hypertension, benign Persistent atrial fibrillation (HCC) (CMS/HCC) Atrial fibrillation Osteoarthritis, generalized Primary osteoarthritis of left shoulder Adult hypothyroidism (CMS/HCC) Unspecified hypothyroidism Dyslipidemia (CMS/HCC) Other and unspecified hyperlipidemia Encounter for long-term current use of medication Medicare annual wellness visit, subsequent- Primary Statin myopathy Toxic myopathy 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)- Primary Benign hypertension (CMS/HCC) Essential hypertension, benign Persistent atrial fibrillation (HCC) (CMS/HCC) Atrial fibrillation Osteoarthritis, generalized Pulmonary hypertension (CMS/HCC) Other chronic pulmonary heart diseases Chronic HFrEF (heart failure with reduced ejection fraction) (CMS/HCC) Benign hypertension (CMS/HCC)- Primary Essential hypertension, benign Chronic HFrEF (heart failure with reduced ejection fraction) (CMS/HCC) Persistent atrial fibrillation (HCC) (CMS/HCC) Atrial fibrillation Osteoarthritis, generalized 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) Seborrheic keratosis- Primary Actinic keratosis Melanocytic nevus of trunk Benign neoplasm of skin of trunk, except scrotum Lentigines Angioma of skin Skin tag Unspecified hypertrophic and atrophic condition of skin History of basal cell carcinoma Personal history of other malignant neoplasm of skin documented in this encounter [facility]* Diagnosis Persistent atrial fibrillation (CMS-HCC)- Primary Atrial fibrillation nursing home (current) use of anticoagulants Long-term (current) use of anticoagulants Anticoagulated on Coumadin documented in this encounter [facility]* Diagnosis Benign hypertension- Primary Essential hypertension, benign Persistent atrial fibrillation (HCC) Atrial fibrillation Osteoarthritis, generalized DJD (degenerative joint disease), ankle and foot, left Benign hypertension- Primary Essential hypertension, benign Persistent atrial fibrillation (HCC) Atrial fibrillation Osteoarthritis, generalized Primary osteoarthritis of left shoulder Adult hypothyroidism Unspecified hypothyroidism Dyslipidemia Other and unspecified hyperlipidemia Encounter for long-term current use of medication Medicare annual wellness visit, subsequent- Primary Statin myopathy Toxic myopathy Coronary artery disease involving [place] coronary artery of [place] heart without angina pectoris- Primary Benign hypertension Essential hypertension, benign Persistent atrial fibrillation (HCC) Atrial fibrillation Osteoarthritis, generalized Pulmonary hypertension (HCC) Other chronic pulmonary heart diseases Chronic HFrEF (heart failure with reduced ejection fraction) (HCC) Benign hypertension- Primary Essential hypertension, benign Chronic HFrEF (heart failure with reduced ejection fraction) (HCC) Persistent atrial fibrillation (HCC) Atrial fibrillation Osteoarthritis, generalized Coronary artery disease involving [place] coronary artery of [place] heart without angina pectoris Onychomycosis- Primary Dermatophytosis of nail documented in this encounter [facility] Narrative - Reported* Type Description Date Medical History HYPERTENSION Medical History HYPOTHYROIDISM Surgical History BILATERAL KNEE REPLACEMENT Surgical History LEFT SHOULDER REPLACEMENT Surgical History MULTIPLE SURGERIES ON BOTH SHOU LDER Surgical History BENIGN TUMOR UNDER LEFT EAR Surgical History LEFT FOOT PARTIAL FUSION Hospitalization History SEE ABOVE [facility] Discharge instructions Additional Instructions Apply ointment. Shower tomorrow. Restart coumadin ..[facility] Work Phone: InstructionsNot on filedocumented in this encounter [facility] filedocumented in this encounter [facility] on filedocumented in this encounter [facility] filedocumented in this [facility] filedocumented in this encounter [facility] filedocumented in this encounter [facility] filedocumented in this encounter [facility] filedocumented in this encounter [facility] filedocumented in this encounter [facility] on filedocumented in this encounter [facility] on filedocumented in this encounter [facility] on filedocumented in this encounter [facility] on filedocumented in this encounter [facility] on filedocumented in this encounter [facility] on filedocumented in this encounter [facility] on filedocumented in this encounter [facility] on filedocumented in this encounter [facility] on filedocumented in this encounter [facility] on filedocumented in this encounter [facility] on filedocumented in this encounter [facility]InstructionsNot on filedocumented in this encounter [facility] (narrative)* Diagnostic Procedure Only (Routine) - Closed Specialty Diagnoses / Procedures Referred By Contac t Referred To Contact XR IMAGING Diagnoses DJD (degenerative joint disease), ankle and foot, left Procedures XR FOOT GENERAL 3V AP/LAT/OBL LEFT RADEX FOOT COMPLETE MINIMUM 3 VIEWS Darrel Almendarez DPM [address] [place] [address] Xr Imaging Referral ID Status Reason Start Date Expiration Date V isits Requested Visits Authorized [id number] Closed Auto-Generate d Referral 07/10/2021 08/09/2022 1 1 [facility] for referral (narrative)* Diagnostic Procedure Only (Routine) - Closed Specialty Diagnoses / Procedures Referred By Contac t Referred To Contact XR IMAGING Diagnoses DJD (degenerative joint disease), ankle and foot, left Procedures XR FOOT GENERAL 3V AP/LAT/OBL LEFT RADEX FOOT COMPLETE MINIMUM 3 VIEWS Darrel Almendarez DPM [address] [place] [address] Xr Imaging Referral ID Status Reason Start Date Expiration Date V isits Requested Visits Authorized [id number] Closed Auto-Generate d Referral 07/10/2021 08/09/2022 1 1 * Diagnostic Procedure Only (Routine) - Closed Specialty Diagnoses / Procedures Referred By Contac t Referred To Contact XR IMAGING Diagnoses Left ankle pain, unspecified chronicity Procedures XR ANKLE GENERAL 3V AP/LAT/OBL LEFT RADEX ANKLE COMPLETE MINIMUM 3 VIEWS Darrel Almendarez DPM [address] [place] [address] Xr Imaging Referral ID Status Reason Start Date Expiration Date V isits Requested Visits Authorized [id number] Closed Auto-Generate d Referral 06/28/2021 07/28/2022 1 1 [facility] for visit Narrative* Diagnostic Procedure Only (Routine) - Closed Specialty Diagnoses / Procedures Referred By Contac t Referred To Contact XR IMAGING Diagnoses Left ankle pain, unspecified chronicity Procedures XR ANKLE GENERAL 3V AP/LAT/OBL LEFT RADEX ANKLE COMPLETE MINIMUM 3 VIEWS Darrel Almendarez DPM [address] [place] [address] Xr Imaging Referral ID Status Reason Start Date Expiration Date V isits Requested Visits Authorized [id number] Closed Auto-Generate d Referral 06/28/2021 07/28/2022 1 1 [facility] Advance Directives Documents on File Type Date Recorded 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 Advance Directive(s) 04/02/2018 11:18 AM Advance Directive(s) 03/26/2018 1:54 PM Advance Directive(s) 03/22/2018 10:08 AM Documents on File Type Date Recorded 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 Advance Directive(s) 04/02/2018 11:18 AM Advance Directive(s) 03/26/2018 1:54 PM Advance Directive(s) 03/22/2018 10:08 AM Advance Directive Response Recorded Date/ Time Advance Directives No May 27, 2 022 8:15am Date Activated Date Inactivated Comments 02/15/2024 11:59 AM 02/19/2024 7:40 PM Date Activated Date Inactivated Comments 02/15/2024 11:59 AM 02/19/2024 7:40 PM Date Activated Date Inactivated Comments 02/15/2024 11:59 AM Reason for Referral Specialty Diagnoses / Procedures Referred By Contac t Referred To Contact MR IMAGING Diagnoses Osteonecrosis (HCC) Procedures MRI ANKLE WO IVCON LT MRI ANY JT LOWER EXTREM W/O CONTRAST MATRL Darrel Almendarez DPM [address] [place] [address] Mr Imaging Referral ID Status Reason Start Date Expiration Date Visits Requested Visits Authorized [id number] Pending Review Auto-Generat ed Referral 08/12/2021 09/11/2022 1 1 Summary Purpose Family History Relationship Condition Age at Onset Recorded Date/T [...] or prosecute any alcohol or drug abuse patient.[facility] the event this information is protected by the Federal Confidentiality of Alcohol and Drug Abuse Patient Records regulations: The Federal rules restrict any use of the information to criminally investigate or prosecute any alcohol or drug abuse patient.[facility] Hospital[facility] the event this information is protected by the Federal Confidentiality of Alcohol and Drug Abuse Patient Records regulations: The Federal rules restrict any use of the information to criminally investigate or prosecute any alcohol or drug abuse patient.[facility] Hospital[facility] the event this information is protected by the Federal Confidentiality of Alcohol and Drug Abuse Patient Records regulations: The Federal rules restrict any use of the information to criminally investigate or prosecute any alcohol or drug abuse patient.[facility] HospitalIn the event this information is protected by the Federal Confidentiality of Alcohol and Drug Abuse Patient Records regulations: The Federal rules restrict any use of the information to criminally investigate or prosecute any alcohol or drug abuse patient.[facility] Reason for Visit (unrecogniz ed section and content) Reason Comments Pain Reason Comments Radio Gen RMP Reason Comments New Pain Reason Comments Established Patient Follow Up Pain Reason Comments Medicare Annual Wellness Visit Subsequen t Wellness Reason Comments Follow-up 6MO MELOXICAM REFILL NEEDED TO [facility] MAIL ORDER ONLY PLEASE Reason Comments Follow-up Cardiology wanted a pcp visit. 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 - shd w [facility] Reason Comments Toenail Care Pt is here today req uesting nail care,SS: 13 Reason Onset Date Comments Med Refill 03/26/2024 Reason Onset Date Comments Cardiac Clearance 03/10/2023 Reason Onset Date Comments Med Refill 10/26/2023 Reason Comments Med Refill Reason Onset Date Comments Echo Order 12/31/2023 Reason Comments Follow-up EST PT F/U 1 YR ECHO TO BE DONE, labs PRIOR TO APPT L/S MAS Reason Onset Date Comments cardiac cath 02/02/2024 Reason Onset Date Comments bladder scan 02/17/2024 Reason Onset Date Comments Med Refill 05/16/2024 Reason Onset Date Comments Med Refill 05/18/2024 Reason Onset Date Comments Med Refill 06/13/2024 Reason Comments Follow-up EST PT F/U 3 MS LABS DONE L/S KM Reason Comments Follow-up 6m Reason Comments Skin Check Reason Onset Date Comments medication question 08/18/2024 Reason Comments Toenail Care Reason Onset Date Comments Med Refill 11/15/2024 Care Teams (unrecognized sec tion and content) Straw Hat Brim Raiser Operator Relationship Specialty Start Date End Date BelindalauraGil melendez [address] [place] [address] PCP - General Family Practice 02/25/18 Straw Hat Brim Raiser Operator Relationship Specialty Start Date End Date BelindalauraGil melendez [address] [place] [address] PCP - General Family Practice 02/25/18 Straw Hat Brim Raiser Operator Relationship Specialty Start Date End Date BelindalauraGil melendez [address] [place] [address] PCP - General Family Practice 02/25/18 Straw Hat Brim Raiser Operator Relationship Specialty Start Date End Date Gil Gee [address] [place] [address] PCP - General Family Practice 02/25/18 Straw Hat Brim Raiser Operator Relationship Specialty Start Date End Date Gil Gee [address] [place] [address] PCP - General Family Practice 02/25/18 Team Status: Active Member Role Status Dates Gil Gee MD Primary Care Provider Active Team Status: Inactive Member Role Status Dates Willie Ross DO Attending Provider Active Gil Gee MD Primary Care Provider Active Straw Hat Brim Raiser Operator Relationship Specialty Start Date End Date Gil Gee MD [address] [place] [address] PCP - General Family Medicine 04/22/23 Straw Hat Brim Raiser Operator Relationship Specialty Start Date End Date Gil Gee MD [address] [place] [address] PCP - General [facility] 04/22/23 Straw Hat Brim Raiser Operator Relationship Specialty Start Date End Date Gil Gee MD [address] [place] [address] PCP - [facility] 04/22/23 Straw Hat Brim Raiser Operator Relationship Specialty Start Date End Date Gil Gee MD [address] [place] [address] PCP [facility] 04/22/23 Straw Hat Brim Raiser Operator Relationship Specialty Start Date End Date Gil Gee MD PCP - General 12/09/16 Straw Hat Brim Raiser Operator Relationship Specialty Start Date End Date Gil Gee MD PCP - General 12/09/16 Straw Hat Brim Raiser Operator Relationship Specialty Start Date End Date Gil Gee MD PCP - General 12/09/16 Straw Hat Brim Raiser Operator Relationship Specialty Start Date End Date Gil Gee MD PCP - General 12/09/16 Straw Hat Brim Raiser Operator Relationship Specialty Start Date End Date Gil Gee MD PCP - General 12/09/16 Straw Hat Brim Raiser Operator Relationship Specialty Start Date End Date Gil Gee MD [address] [place] [address] PCP - General Family Medicine 04/22/23 Straw Hat Brim Raiser Operator Relationship Specialty Start Date End Date Gil Gee MD [address] [place] [address] PCP - General Family Medicine 04/22/23 Straw Hat Brim Raiser Operator Relationship Specialty Start Date End Date Gil Gee MD PCP - General 12/09/16 Straw Hat Brim Raiser Operator Relationship Specialty Start Date End Date Gil Gee MD PCP - General 12/09/16 Straw Hat Brim Raiser Operator Relationship Specialty Start Date End Date Gil Gee MD [address] [place] [address] PCP - General Family Medicine 04/22/23 Straw Hat Brim Raiser Operator Relationship Specialty Start Date End Date Gil Gee MD [address] [place] [address] PCP - General Family Medicine 04/22/23 Straw Hat Brim Raiser Operator Relationship Specialty Start Date End Date Gil Gee MD PCP - General 12/09/16 Straw Hat Brim Raiser Operator Relationship Specialty Start Date End Date Gil Gee MD PCP - General 12/09/16 Straw Hat Brim Raiser Operator Relationship Specialty Start Date End Date Gil Gee MD [address] [place] [address] PCP - General 12/09/16 Straw Hat Brim Raiser Operator Relationship Specialty Start Date End Date Gil Gee MD [address] [place] [address] PCP - General 12/09/16 Straw Hat Brim Raiser Operator Relationship Specialty Start Date End Date Gil Gee MD PCP - General 12/09/16 Straw Hat Brim Raiser Operator Relationship Specialty Start Date End Date Gil Gee MD PCP - General 12/09/16 Straw Hat Brim Raiser Operator Relationship Specialty Start Date End Date Gil Gee MD PCP - General 12/09/16 Straw Hat Brim Raiser Operator Relationship Specialty Start Date End Date Gil Gee MD PCP - General 12/09/16 Straw Hat Brim Raiser Operator Relationship Specialty Start Date End Date Gil Gee MD PCP - General 12/09/16 Straw Hat Brim Raiser Operator Relationship Specialty Start Date End Date Gil Gee MD PCP - General 12/09/16 Straw Hat Brim Raiser Operator Relationship Specialty Start Date End Date Gil Gee MD PCP - General 12/09/16 Straw Hat Brim Raiser Operator Relationship Specialty Start Date End Date Gil Gee MD PCP - General 12/09/16 Straw Hat Brim Raiser Operator Relationship Specialty Start Date End Date Gil Gee MD PCP - General 12/09/16 Straw Hat Brim Raiser Operator Relationship Specialty Start Date End Date Gil Gee MD PCP - General 12/09/16 Straw Hat Brim Raiser Operator Relationship Specialty Start Date End Date Gil Gee MD PCP - General 12/09/16 Straw Hat Brim Raiser Operator Relationship Specialty Start Date End Date Gil Gee MD [address] [place] [address] PCP - General Family Medicine 05/06/24 Straw Hat Brim Raiser Operator Relationship Specialty Start Date End Date Gil Gee MD [address] [place] [address] PCP - General Family Medicine 05/06/24 Straw Hat Brim Raiser Operator Relationship Specialty Start Date End Date Gil Gee MD [address] [place] [address] PCP - General Family Medicine 05/06/24 Straw Hat Brim Raiser Operator Relationship Specialty Start Date End Date Gil Gee MD [address] [place] [address] PCP - General Family Medicine 04/22/23 Gil Gee MD [address] [place] [address] PCP - ACO Reach 04/15/24 Straw Hat Brim Raiser Operator Relationship Specialty Start Date End Date Gil Gee MD [address] [place] [address] PCP - General Family Medicine 05/06/24 Straw Hat Brim Raiser Operator Relationship Specialty Start Date End Date Gil Gee MD [address] [place] [address] PCP - General Family Medicine 04/22/23 Gil Gee MD [address] [place] [address] PCP - ACO Reach 04/15/24 Straw Hat Brim Raiser Operator Relationship Specialty Start Date End Date Gil Gee MD [address] [place] [address] PCP - General Family Medicine 06/10/24 Straw Hat Brim Raiser Operator Relationship Specialty Start Date End Date Gil Gee MD [address] [place] [address] PCP - General Family Medicine 06/10/24 Straw Hat Brim Raiser Operator Relationship Specialty Start Date End Date Gil Gee MD [address] [place] [address] PCP - General Family Medicine 06/10/24 Straw Hat Brim Raiser Operator Relationship Specialty Start Date End Date Gil Gee MD [address] [place] [address] PCP - General Family Medicine 06/10/24 Straw Hat Brim Raiser Operator Relationship Specialty Start Date End Date Gil Gee MD [address] [place] [address] PCP - General Family Medicine 06/10/24 Straw Hat Brim Raiser Operator Relationship Specialty Start Date End Date Gil Gee MD [address] [place] [address] PCP - General Family Medicine 04/22/23 Gil Gee MD [address] [place] [address] PCP - ACO Reach 04/15/24 Straw Hat Brim Raiser Operator Relationship Specialty Start Date End Date Gil Gee MD [address] [place] [address] PCP - General Family Medicine 04/22/23 Gil Gee MD [address] [place] [address] PCP - ACO Reach 04/15/24 Straw Hat Brim Raiser Operator Relationship Specialty Start Date End Date Gil Gee MD [address] [place] [address] PCP - General Family Medicine 04/22/23 Gil Gee MD [address] [place] [address] PCP - ACO Reach 04/15/24 Straw Hat Brim Raiser Operator Relationship Specialty Start Date End Date Gil Gee MD [address] [place] [address] PCP - General Family Medicine 06/10/24 Straw Hat Brim Raiser Operator Relationship Specialty Start Date End Date Gil Gee MD [address] [place] [address] PCP - General Family Medicine 06/10/24 Straw Hat Brim Raiser Operator Relationship Specialty Start Date End Date Gil Gee MD PCP - General Family Medicine 06/10/24 Straw Hat Brim Raiser Operator Relationship Specialty Start Date End Date Gil Gee MD [address] [place] [address] PCP - General Family Medicine 04/22/23 Gil Gee MD [address] [place] [address] PCP - ACO Reach 04/15/24 Straw Hat Brim Raiser Operator Relationship Specialty Start Date End Date Gil Gee MD PCP - General Family Medicine 06/10/24 (unrecognized sect ion and content) No Status Records FoundNo Status Records FoundNo Status Records FoundNo Status Records FoundNo Status Records FoundNo Status Records FoundNo Status Records Found INFORMATION SOURCE (unrecogn ized section and content) DATE CREATED AUTHOR 08/13/2021 [facility] DATE CREATED AUTHOR AUTHOR'S ORGANIZ ATION 07/21/2022 [facility] DATE CREATED AUTHOR AUTHOR'S ORGANIZ ATION 04/17/2023 [facility] DATE CREATED AUTHOR AUTHOR'S ORGANIZ ATION 02/23/2024 [facility] DATE CREATED AUTHOR AUTHOR'S ORGANIZ ATION 03/18/2024 [facility] DATE CREATED AUTHOR AUTHOR'S ORGANIZ ATION 09/25/2024 [facility] DATE CREATED AUTHOR AUTHOR'S ORGANIZ ATION 11/13/2024 [facility] Goals (unrecognized section and content) Goals may [...] THE PRIMARY CLINICAL RECORDS. [facility] [facility]. provides no warranty or guarantee of the accuracy or completeness of information in this document.
--- NOTE | 2024-11-28 13:00 | CA_ITS ---
The [facility] Test Date: 2024-11-28 Pat Name: REMI ZARCO Department: Room: - Gender: Male Biomass Facilitator: : 1945 Requested By: LEXI HERNANDEZ Order Number: [id number] Reading MD: SHAJI ALATORRE M.D. Interpretive Statements Summary of the findings: Right leg: ANJALI= 0.78; TBI= 0.48. Doppler waveforms demonstrate monophasic flow at the posterior tibial and dorsalis pedis arteries. Left leg: ANJALI= 1.01; TBI= 0.55. Doppler waveforms demonstrate monophasic flow at the posterior tibial and dorsalis pedis arteries. Segmental pressures: Segmental pressures suggest significant right-sided infrapopliteal disease. Pulse volume recordings: PVRs at the high thigh, below knee, and ankle levels show dampened right ankle waveform. Conclusion: Right ankle-brachial index is suggestive of reduced overall arterial flow at rest. Toe-brachial indices are suggestive of PAD. Segmental pressures show significant right-sided infrapopliteal disease. The study shows evidence of PAD with reduced overall right sided arterial flow at rest mostly due to infrapopliteal disease. Electronically Signed On 11-28-2024 17:25:12 EDT by SHAJI ALATORRE M.D.
--- NOTE | 2024-11-28 13:48 | CT_ITS ---
The [address] [address] Patient Name: REMI ZARCO MRN: [id number] date: 1945 Sex: M Assigned Patient Location: CARD Current Patient Location: CARD Accession/Order Number: [id number] Exam Date: 11/28/2024 13:55 Report Date: 11/28/2024 18:39 At the request of: LEXI HERNANDEZ DPM Procedure: CT ankle LT wo con CT ankle LT wo con 11/28/2024 2:02 PM SIGNS AND SYMPTOMS: Ankle Degenerative Joint Disease TECHNIQUE: Multidetector CT axial slices of the left ankle without IV contrast. Multiplanar and 3D reformats were performed and viewed on a separate workstation and reviewed to further define anatomy and possible pathology. CT was performed with one or more of the following dose reduction techniques: Automated exposure control, adjustment of the mA and/or kV according to patient size, or use of iterative reconstruction technique. COMPARISON: 11/18/2023 FINDINGS: Similar post-surgical changes are noted consistent with prior hardware fixation of the left foot. There is incomplete healing across the calcaneal osteotomy. There is fracture of the talonavicular joint hardware along the anterior talar process. This is unchanged. There is lucency surrounding the fusion screw traversing the calcaneocuboid joint suggesting loosening. The distal aspect of the screw appears angulated and is likely fractured. This is unchanged. There is partial fusion across the subtalar joints. Hardware is otherwise intact and unchanged. There are significant degenerative changes of the tibiotalar junction similar to the prior exam. No acute displaced fracture. There is similar plantar and achilles surface calcaneal spurring which is unchanged. There is diffuse soft tissue swelling. CT/CT ankle LT wo con IMPRESSION: Similar post-surgical changes are noted consistent with prior hardware fixation of the left foot. There is incomplete healing across the calcaneal osteotomy. There is fracture of the talonavicular joint hardware along the anterior talar process. This is unchanged. There is lucency surrounding the fusion screw traversing the calcaneocuboid joint suggesting loosening. The distal aspect of the screw appears angulated and is likely fractured. This is unchanged. Hardware is otherwise intact and unchanged. Impression dictated by: Cristian Barrios M.D. 11/28/2024 6:39 PM Dictation Location: [place] [address] Electronically authenticated by: [id number] Y Date: 11/28/2024 18:39
== END 2024-11-28 12:39 | disposition home or self-care (01) ==
LOC: CARD 12:40
PROVIDERS: PCP Family Medicine; Visit Provider Podiatrist Foot & Ankle Surgery
DX: R09.89 Other specified symptoms and signs involving the circulatory and respiratory systems (principal); M19.072 Primary osteoarthritis, left ankle and foot
CPT/HCPCS: 73700; 76376; 93923

== ENCOUNTER 2025-01-12 12:30 | Outpatient (OUT) | payer MEDICARE, OTHER, BC, SELFPAY ==
--- OUTSIDE RECORDS SUMMARY | 2025-01-12 12:36 | XMS_ITS | Clinical Summary ---
Author Organization [facility] Address [address] [place] [address] Care Team Providers Care Audio Visual Design Engineer Name Role Phone Gil Higgins MD Primary Care Provider [phone] Allergies Active AllergyReactionsCriticalityNoted DateCommentsMorphineOther: See Comments 01/04/2018 Makes patient skin hurt Medications MedicationSigDispense QuantityRefillsLast FilledStart DateEnd DateStatus levothyroxine (SYNTHROID) 100 mcg tablet Take 100 mcg by mouth daily before breakfast.Active meloxicam (MOBIC) 15 mg tablet Take 15 mg by mouth once daily. Been taking one every other day 12/09/2017Active eplerenone (INSPRA) 25 mg tablet Take 25 mg by mouth once daily. 10/05/2017Active magnesium hydroxide (MOM) 400 mg/5 mL suspension Take 30 mL by mouth once daily as needed for Constipation. 473 mL 04/08/2018Active warfarin (COUMADIN) 4 mg tablet Take 2-4 mg by mouth.1Active Active Problems ProblemNoted DateDiagnosed DateDifficulty mosfzcm90/04/2022PTTD (posterior tibial tendon dysfunction)2Acquired valgus deformity of left ankle 2DJD (degenerative joint disease), ankle and foot, left07/10/2021tatus post replacement of left shoulder joint05/13/2018Rotator cuff tear arthropathy, right01/27/2018Rotator cuff tear arthropathy, left01/27/2018Rotator cuff arthropathy of both adytcvobx66/29/2018Complete tear of left rotator cuff 05/21/2015Complete tear of right rotator cuff05/21/2015Primary osteoarthritis of left baocycze91/14/2016 Family History Medical HistoryRelationCommentsHeart AttackFatherRelationStatusCommentsFather Social History Tobacco UseTypesPacks/DayYears UsedDateSmoking Tobacco: JeoseaJvndbabxzp3515806 - 1988Smokeless Tobacco: NeverAlcohol UseStandard Drinks/WeekCommentsYes0 (1 standard drink = 0.6 oz pure alcohol)rarePHQ-2AnswerDate RecordedPHQ2 Score0 04/02/2018Area Deprivation IndexAnswerDate RecordedNational Score (1-100), lower number is lower ohct165003/27/2022State Score (1-10), lower number is lower risk Not on file03/27/2022ata from: https://www.neighborhoodatlas.medicine.[facility].edu/. Last address used for befarawo[address] [facility] 1795503/27/2022Sex and Gender InformationValueDate RecordedSex Assigned at BirthNot on fileLegal JmfAsbj55/02/2012 8:29 AM EST Gender IdentityNot on fileSexual OrientationNot on file Last Filed Vital Signs Vital SignReadingTime TakenCommentsBlood Pdcztdjq692/67004/08/2018 7:44 AM EST Epvvq251504/08/2018 7:44 AM AEXXcldmxbrshr04.4 ??C (97.6 ??F)04/08/2018 7:44 AM ESTRespiratory Pbtt692904/08/2018 7:44 AM ESTOxygen Jqjmbgcinv64%04/08/2018 7:44 AM ESTInhaled Oxygen Concentration--Qfjybl893 kg (255 lb 11.7 oz)04/02/2018 6:32 PM SXQLqqhpw553 cm (6' 0.84 )04/02/2018 6:32 PM ESTBody Mass Index33.89 04/02/2018 6:32 PM EST Plan of Treatment Health MaintenanceDue DateLast DoneCommentsAnxiety Csuzjgqoz44/31/1964Depression Ptxompkva57/31/1964DTaP,Tdap,Td Vaccine (1 - Tdap)1964Pneumococcal Vaccine: 50+ (1 of 1 - PCV)06/07/1995RSV Vaccine (1 - 1-dose 75+ series) 2020hingrix Vaccine (2 of 2)/dvance Directive Rftbpkkdwj96/01/2025Diabetes Smzjggimm63, 07/02/2020, 12/17/2018, Additional history existsCovid-19 Vaccine ( season) /, 12/26/2020, 05/21/2020, Additional history existsInfluenza Vaccine (#1)/03/2019, 12/07/2018, 12/16/2017, Additional history akpduoSwehftbfhiqXrwyvlhwijyi71/17/2022, 04/25/2021olorectal Cancer Screening DiscontinuedCT ColonographyDiscontinuedCologuard (FIT-DNA)DiscontinuedFecal Occult BloodDiscontinuedSigmoidoscopyDiscontinued Medical Devices ImplantedTypeAreaManufacturerDevice IdentifierShelf Expiration DateModel / Serial / LotHead Rsp 36mm Neutral Glenoid Retain Screw - [id number] Implanted:Qty: 1 on 04/02/2018 by Latrell Moctezuma MD at [facility] ShoulderLeft: Bone - ShoulderDJO [id number] / / [id number] Rsp Djo Surgical Standard Hxe+ Socket Sterile Humeral - [id number] Implanted:Qty: 1 on 04/02/2018 by Latrell Moctezuma MD at [facility] ShoulderLeft: Bone - ShoulderDJO [id number] / / [id number] Altivate Djo Surgical 14 Standard 108mm Humeral Sterile Shoulder - [id number] Implanted:Qty: 1 on 04/02/2018 by Latrell Moctezuma MD at [facility] ShoulderLeft: Bone - ShoulderDJO [id number] / / [id number] Rsp P2 30mm Glenoid Sterile - [id number] Implanted:Qty: 1 on 04/02/2018 [facility]Hist[facility] Bone - ShoulderDJO [id number] / / [id number] Rsp 5mm 26mm Bone Lock Glenoid Baseplate Shoulder - [id number] Implanted:Qty: 1 on 04/02/2018 by Latrell Moctezuma MD at [facility] Left: Bone - ShoulderDJO INC08//[id number] / / [id number] Rsp 5mm 30mm Bone Lock Glenoid Baseplate Shoulder - [id number] Implanted:Qty: 1 on 04/02/2018 by Latrell Moctezuma MD at [facility] Left: Bone - ShoulderDJO INC12//[id number] / / [id number] Rsp 5mm 26mm Bone Lock Glenoid Baseplate Shoulder - [id number] Implanted:Qty: 1 on 04/02/2018 by Latrell Moctezuma MD at [facility] Left: Bone - ShoulderDJO INC11//[id number] / / [id number] Rsp 5mm 18mm Bone Lock Glenoid Baseplate Shoulder - [id number] Implanted:Qty: 1 on 04/02/2018 by Latrell Moctezuma MD at [facility] Left: Bone - ShoulderDJO INC//[id number] / / [id number] Procedures Procedure NamePriorityDate/TimeAssociated DiagnosisCommentsBASIC METABOLIC PANEL STAT04/06/2018 9:45 AM EST from Last 3 Months or Most Recently Relevant to Health Maintenance Results * (ABNORMAL) BASIC METABOLIC PNL (04/06/2018 9:45 AM EST)ComponentValueRef Range Test MethodAnalysis TimePerformed AtPathologist CsfkzpohnGowxevs9024 - 99 mg/dL04/06/2018 11:35 AM ESTREGENCY HOSPITAL COMPANY MAIN LABORATORYComment: The [place] Diabetes Association (ADA) provides guidance for cutoff [...] Standards of Medical Care in Diabetes 2016, [place] Diabetes Association. Diabetes Care. 2016.39(Suppl 1). VIC040 - 24 mg/dL04/06/2018 11:35 AM [facility] Creatinine0.950.73 - 1.22 mg/dL04/06/2018 11:35 AM [facility] OOCTBGERSEWzsokw504(L)136 - 144 mmol/L04/06/2018 11:35 AM [facility] LABORATORYPotassium4.13.7 - 5.1 mmol/L04/06/2018 11:35 AM [facility] SZQEKLUTDXZkktpjfc4679 - 105 mmol/L04/06/2018 11:35 AM [facility] GWJBHSJJWIVE19459 - 30 mmol/L04/06/2018 11:35 AM [facility] LABORATORYAnion Gjb321 - 18 mmol/L04/06/2018 11:35 AM [facility] LABORATORYCalcium9.08.5 - 10.2 mg/dL04/06/2018 11:35 AM [facility] LABORATORYeGFR->6001 11:35 AM [facility] LABORATORYeGFR-All Other Races>60.04/06/2018 11:35 AM [facility] LABORATORYComment: eGFR (Estimated GFR) Units of measure: mL/min/1.73 [...] eGFR may not accurately reflect actual GFR. Specimen (Source)Anatomical Location / LateralityCollection Method / Volume Collection TimeReceived TimeBlood specimen (specimen)BLOOD SPECIMEN / Unknown 04/06/2018 9:45 AM EST04/06/2018 10:18 AM EST Narrative Authorizing ProviderResult TypeResult StatusStepgeneva Henderson PA-C LABORATORYFinal ResultPerforming OrganizationAddressCity/State/ZIP CodePhone Number [facility] [address] [place] [address] from Last 3 Months or Most Recently Relevant to Health Maintenance Insurance Advance Directives TypeDate RecordedPatient RepresentativeExplanationAdvance Directive(s)04/02/2018 11:18 AM Care Teams Team MemberRelationshipSpecialtyStart DateEnd Date Gil Higgins MD [address] [place] [address] [facility] Feelycky60/20/18
--- OUTSIDE RECORDS SUMMARY | 2025-01-12 12:36 | XMS_ITS | Patient Health Record ---
Author Organization [facility] [place] Address [address] [place] [address] Care Team Providers Care Black Leather Buffer Name Role Phone None, Unknown or Primary Care Provider Unavailab Lexi Benavidez [phone] Allergies Allergen (clinical drug ingredient) Drug/Non Drug Allergy documented on EMR Reaction Allergy Type Onset Date Status morphine Morphine Sulfate Unknown Drug Allergy Active Results Component Value Reference Range Notes XR foot LT min 3V (Not yet r eviewed by provider) Interpretation: Performing Lab: Notes/Report: Source Facility: [place] [address] XRay Report Signed Patient: REMI ZARCO MR#: [id number] : 1945 Acct:[id number] Age/Sex: 79 / M ADM Date: 07/14/24 Loc: RAD Attending Dr: Lexi Snow D.P.M. Ordering Physician: Lexi Snow D.P.M. Date of Service: 07/14/24 Procedure(s): XR foot LT min 3V Accession Number(s): [id number] cc: Lexi Snow D.P.M.; Gil Higgins M.D. [place] [id number] Patient Name: REMI ZARCO MRN: [id number] date: 1945 Sex: M Assigned Patient Location: RAD Current Patient Location: RAD Accession/Order Number: [id number] Exam Date: 07/14/2024 13:44 Report Date: 07/14/2024 13:46 At the request of: LEXI SNOW DPRatna Procedure: XR foot LT min 3V LEFT [...] NOTED. Impression dictated by: Pete Jacobson Jr., D.O. 07/14/2024 1:46 PM Dictation Location: [place] [address] Electronically authenticated by: [id number] Y Date: 07/14/2024 13:46 Dictated By: Pete Jacobson M.D. 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 Ordering Physician: Lexi Snow D.P.M. Date of Service: 07/14/24 Procedure(s): XR ankle LT min 3V Accession Number(s): [id number] cc: Lexi Snow D.P.M.; Gil Higgins M.D. [place] [address] Patient Name: REMI ZARCO MRN: [id number] date: 1945 Sex: M Assigned Patient Location: RAD Current Patient Location: [facility] Accession/Order Number: [id number] Exam Date: 07/14/2024 13:44 Report Date: 07/14/2024 13:46 At the request of: LEXI SNOW DPM Procedure: XR foot LT min 3V [...] NOTED. Impression dictated by: Pete Jacobson Jr., D.Juany 07/14/2024 1:46 PM Dictation Location: [place] [address] Electronically authenticated by: [id number] Y Date: 07/14/2024 13:46 Dictated By: Pete Jacobson M.D. 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 Ordering Physician: Lexi Snow D.P.M. Date of Service: 07/21/24 Procedure(s): XR foot RT min 3V Accession Number(s): [id number] cc: Lexi Snow D.P.M.; Gil Higgins M.D. [place] [address] Patient Name: REMI ZARCO MRN: [id number] date: 1945 Sex: M Assigned Patient Location: RAD Current Patient Location: RAD Accession/Order Number: [id number] Exam Date: 07/21/2024 13:39 Report Date: 07/21/2024 13:40 At the request of: LEXI SNOW DPM Procedure: XR foot RT min 3V XR [...] Barrios M.D. 07/21/2024 1:40 PM Dictation Location: [place] [address] Electronically authenticated by: [id number] Y Date: 07/21/2024 13:40 Dictated By: Cristian Barrios M.D. Signed By: 07/21/24 1342 DD/ 1340 TD/TT: Aviation Maintenance Instructor: SHRADDHA Reviewed date:09/14/2024 10:42:18 AM Interpretation: Performing Lab: Notes/Report: Source Facility: [place] [address] [place] [address] Cardiac Rehab Report Signed Patient: REMI ZARCO MR#: [id number] : 1945 Acct:[id number] Age/Sex: 79 / M ADM Date: 09/12/24 Loc: CR Attending Dr: Non-Staff Physician Carol Ordering Physician: Atif Shankar D.O. 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 Electronically Signed On 09-14-2024 10:12:45 EDT by Atif Shankar Dictated By: Atif Shankar D.O. Signed By: 09/14/24 1013 09/14/24 1013 DD/ 08 TD/TT: Aviation Maintenance Instructor: SHRADDHA Reviewed date:09/19/2024 06:07:39 PM Interpretation: Performing Lab: Notes/Report: Source Facility: [place] [address] Cardiac Rehab Report Signed Patient: REMI ZARCO MR#: [id number] : 1945 Acct:[id number] Age/Sex: 79 / M ADM Date: 09/15/24 Loc: CR Attending Dr: Non-Staff Physician Carol Ordering Physician: Atif Shankar D.O. Date of Service: 09/15/24 Procedure(s): SHRADDHA Accession Number(s): [id number] cc: [facility] Test Date: 2024-09-15 Pat Name: REMI ZARCO Department: Room: - Gender: Male Director Of Career Resources: : 1945 Requested By: Atif Shankar Order Number: [id number] Higinio MD: Atif Shankar Interpretive Statements Patient has completed the outlined treatment plan. Electronically Signed On 09-19-2024 18:02:15 EDT by Atif Shankar Dictated By: Atif Shankar D.O. Signed By: 09/19/24180109/19/241801 DD/ 5 TD/TT: Aviation Maintenance Instructor: Reason For Referral No Information Medications Medication SIG (Take, Route, Frequency, Duration) Notes Start Date End Date Status Levothyroxine Sodium 100 MCG 1 tablet in the morning on an empty stomach Orally Once a day; Duration: 30 day(s) ActiveFish Oil 1000 MG1 capsule Orally Once a dayActiveEplerenone 25 MG1 tablet Orally Once a day; Duration: 30 day(s)ActiveCoumadinActiveZiac 5-6.25 MG1 tablet Orally Once a day; Duration: 30 day(s)ActiveVitamin C 500 MG1 tablet Orally Once a dayActiveMobicActive Social History Tobacco Use: Social History Observation Description Date Details (start date - stop date) Never Smoker NA - NA Tobacco Use/Smoking Question Answer Notes Patient is a nonsmoker Problems Problem Type SNOMED Code ICD Code Onset Dates Problem Status W/U Status Risk Notes Problem Essential hypertension (96827363 ) Essential (primary) hypertension (I10) ActiveconfirmedProblemVaccination given (984259790)Encounter for immunization (Z23)ActiveconfirmedProblemLocalized, primary osteoarthritis of the ankle and/or foot (456664529)Primary osteoarthritis, left ankle and foot (M19.072)Active confirmedProblemAcquired deformity of left foot (disorder) (570118751)Other acquired deformities of left foot (M21.6X2)ActiveconfirmedProblemPain associated with internal prosthetic device (disorder) (434847808)Pain due to internal orthopedic prosthetic devices, implants and grafts, initial encounter (T84.84XA) ActiveconfirmedProblemLong-term current use of drug therapy (773375338)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 remote 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 (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) drug therapy (Z79.899)ActiveconfirmedProblemPresence of functional implant, unspecified (Z96.9)ActiveconfirmedProblemHypothyroidism (41940444)Adult hypothyroidism (E03.9)ActiveconfirmedProblemDyslipidemia (965121332)Dyslipidemia (E78.5)ActiveconfirmedProblemObesity (842923417)Obesity (BMI 30-39.9) (E66.9)ActiveconfirmedProblemPain in limb (17474646)Pain of left foot (M79.672)ActiveconfirmedProblemProstate specific antigen measurement (39327307)Screening PSA (prostate specific antigen) (Z12.5)Activeconfirmed ProblemMultiple nodules of lung (359396844)Lung nodule, multiple (R91.8)Active confirmedProblemGeneralized osteoarthritis (032060310)Generalized osteoarthritis (M15.9)ActiveconfirmedProblemInstability of joint of left ankle (0170914658296936)Instability of left ankle joint (M25.372)Activeconfirmed ProblemHistory of fall (631898101)At risk for falling (Z91.81)Activeconfirmed ProblemDisorder of musculoskeletal system (899793)Weakness of right lower extremity (R29.898)ActiveconfirmedProblemArthritis of left ankle (6716775326447624)Arthritis of left ankle (M19.072)ActiveconfirmedProblem Abnormal foot pulse (68752750)Abnormal foot pulse (R09.89)ActiveconfirmedProblem Localized, primary osteoarthritis of the ankle and/or foot (169190369)Arthritis of ankle, left (M19.072)ActiveconfirmedProblemTibialis tendinitis (64515432) Posterior tibial tendon dysfunction, left (M76.822)ActiveconfirmedProblem Localized, primary osteoarthritis of the ankle and/or foot (655529927)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)ActiveconfirmedProblemDepression Screening (572758467)Encounter for screening for depression (Z13.31)ActiveconfirmedProblem Chronic atrial fibrillation (disorder) (034026963)Chronic atrial fibrillation, unspecified (I48.20)ActiveconfirmedProblemEquinus contracture of left ankle (M24.572)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) ActiveconfirmedProblemAcquired valgus deformity of left ankle (302927897069936) 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)Activeconfirmed Encounters Encounter Location Date Provider Diagnosis [facility] (PODIATRY) [address] [place] [address] [place] [address] 02/10/2024 Lexi Snow Plan Of Treatment Pending Test Test Name Order Date XR Ankle LT (3 views) * (164) 10/14/2023 XR Foot LT (3 views) * 10/14/2023 CT ANKLE LT WO CON 06/02/2023 XR foot LT min 3V 11/26/2022 XR foot LT min 3V 07/14/2024 XR foot RT min 3V 07/21/2024 XR ankle LT min 3V 07/14/2024 XR ankle LT min 3V 10/19/2023 Insurance Providers Payer Name Payer Address Payer Phone Subscriber Number Group Number Insured Name Patient Relationship to Insured Coverage Start Date Coverage End Date [place] [address] [place] [address] [id number] Seble Zarco - patient is the [id number] [address] [place], [place] [id number], Richard Self - patient is the [id number] 2010[address] OUT OF [address] [place] [id number], RichardSelf - patient is the [id number] 2010 Medical (General) History Medical History History ICD Code Generalized osteoarthritis M15.9 Chronic atrial fibrillation, unspecified I48.20 Essential (primary) hypertension I10 At risk for falling Z91.81 Encounter for screening for depression Z 13.31 Obesity (BMI 30-39.9) E66.9 Encounter for immunization Z23 Acquired valgus deformity of ankle M21.0 79 Other acquired deformities of left foot M21.6X2 Screening PSA (prostate specific antigen ) Z12.5 Adult hypothyroidism E03.9 Other remote 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 (current) drug therapy Z 79.899 Lung nodule, multiple R91.8 Dyslipidemia E78.5 Abnormal foot pulse R09.89 Pain of left foot M79.672 Equinus contracture of left ankle M24.57 2 Arthritis of subtalar joint M19.079 Instability of left ankle joint M25.372 Acquired valgus deformity of left ankle M21.072 Weakness of right lower extremity R29.89 8 Arthritis of ankle, left M19.072 Surgical History Surgery Date(Month/Year) LT 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
--- OUTSIDE RECORDS SUMMARY | 2025-01-12 12:40 | XMS_ITS | CCD ---
Author Organization [facility] Care Team Providers Care Insurance Office Manager Name Role Phone Gil Gee Primary Care [...] Consulting Unavailable HIGHLANDER, LEXI Melendez Consulting Unavailable TRACEY WEBER Consulting Unavailable STEPHON ., CHRISTINA ROJO Consulting Unavailable MARY, LEXI Melendez Procedure Practitioner Unava ilable SIMON, MACY Consulting Unavailable WEST, DR YOU Whiteside Consulting Unavailable NADERER, DR GIL Fairchild Primary Care Unavailable SUHA VAUGHN Attending Unavailable SUHA VAUGHN Admitting Unavailable SUHA VAUGHN Consulting Unavailable Yolanda Somers Unavailable DO Willie Ross Attending Provider [phone] MD Gil Gee Primary Care Provider Willie Ross Admitting Unavailable Willie Ross Attending Unavailable Gerard, Gil Primary Care Unavailable Vandana, Willie Attending Unavailable Gerard, Gil Primary Care Unavailable Willie Ross Admitting Unavailable Gerard RIVERA, Gil Primary Care Provider [phone] Gil Gee MD Primary Care Provider BRAD GREER Admitting Unavailable BRAD GREER Attending Unavailable GIL GEE Primary Care Unavailable [place] Unavailable MANUEL BARNES Admitting Unavailab le MOLLY, MANUEL Martínez Attending Unavailab le MANUEL BARNES Referring Unavailab le GIL GEE Primary Care Unavailable BRAD GREER Consulting Unavailable LEXI FLORES Consulting Unavailable GIL GEE Referring Unavailable GERARD, GIL Primary Care Unavailable EDGARD VILLA Attending Unavailable AMBERLY ZUÑIGA Referring Unavailable GERARD, GIL Primary Care Unavailable GERARD, GIL Referring Unavailable GERARD, GIL Primary Care Unavailable Gerard RIVERA, Gil Primary Care Provider [phone] Gil Gee MD Primary Care Provider Gli Gee MD Unavailable Gil Gee MD Primary Care Provider [phone] Gil Gee MD Primary Care Provider JR. MARILIA, SHAJI Fernandez Attending Unavaila ble JR. MARILIA, SHAJI Fernandez Referring Unavaila ble NADERER, GIL Attending Unavailable SUMAN GARCIA Attending Unavailable ADILIA MULTANI Attending Unavailable NADERER, GIL Attending Unavailable NADERER, GIL Attending Unavailable NADERER, GIL Attending Unavailable ADILIA MULTANI Attending Unavailable Naderer Gil RIVERA Primary Care Provider Gerard RIVERA, Gil Unavailable Gerard RIVERA, Gil Primary Care Provider [phone] Gerard RIVERA, Gil Attending Provider [phone] Gerard RIVERA, Gil Unavailable Gerard RIVERA, Gil Primary Care Provider ABILIO GUPTA Referring Unavailable NADERER, GIL Primary Care Unavailable TACOS POWERS Referring Unavailable NADERER, GIL Primary Care Unavailable ADILIA TESFAYE Attending Unavailable NADERER, GIL Referring Unavailable NADERER, GIL Primary Care Unavailable SERVICE, AMBERLY Referring Unavailable NADERER, GIL Primary Care Unavailable BRAD GREER Referring Unavailable NADERER, GIL Primary Care Unavailable GRACE GEE Attending Unavailable NADERER, GIL Referring Unavailable NADERER, GIL Primary Care Unavailable GRACE GEE Referring Unavailable NADERER, GIL Primary Care Unavailable SERVICE, AMBERLY Referring Unavailable NADERER, GIL Primary Care Unavailable MANUEL BARNES Referring Unavailab le NADERER, GIL Primary Care Unavailable MEDICATION MANAGEMENT, [facility] Referr ing Unavailable NADERER, GIL Primary Care Unavailable NANCY OVALLE Attending Unavailable NADERER, GIL Referring Unavailable NADERER, GIL Primary Care Unavailable NADERER, GIL Referring Unavailable NADERER, GIL Primary Care Unavailable MEDICATION MANAGEMENT, [facility] Referr ing Unavailable NADERER, GIL Primary Care Unavailable VINCENT CHING Referring Unavailable NADERER, GIL Primary Care Unavailable MEDICATION MANAGEMENT, [facility] Referr ing Unavailable NADERER, GIL Primary Care Unavailable OLAF PÉREZ Referring Unavailable NADERER, GIL Primary Care Unavailable VINCENT CHING Attending Unavailable NADERER, GIL Referring Unavailable NADERER, GIL Primary Care Unavailable [...] ing Unavailable NADERER, GIL Primary Care Unavailable SUMAN WINN Attending Unavailable NADERER, GIL Referring Unavailable NADERER, GIL Primary Care Unavailable MEDICATION MANAGEMENT, [facility] Referr ing Unavailable NADERENora, GIL Primary Care Unavailable SUMAN WINN Referring Unavailable NADERENora, GIL Primary Care Unavailable Allergies Allergy ClassificationReported Allergen(s)Allergy TypeDate of OnsetReaction(s) Facility (20 sources)Morphine; Translations: [MORPHINE]Drug [id number]: See Comments, UnknownPar[facility] HospitalComment on above:patient stated skin was hypersensitive, didn't like anything touching his skin (2 sources)[facility]Drug [facility] (20 sources)rosuvastatin; Translations: [rosuvastatin]Drug [id number] Other, Other (See Comments)[facility] (1 source)MorphineDrug Bepcswx12-57-4197RhvmexndgDetwiler [facility] Repository Medications Current Medications MedicationDrug Class(es)DatesSig (Normalized)Sig (Original)acetaminophen 325 mg oral tablet (20 sources)Start: 67-08-0129euxd 2 tablets by mouth every four hours as needed for painacetaminophen (TYLENOL) 325 mg tablet Take 2 tablets (650 mg total) by mouth every 4 (four) hours as needed for pain. 02/19/2024 ActiveAcetaminophen 500 MG capsule Take by mouth Activeaspirin 81 mg delayed release oral tablet (20 sources)Platelet Aggregation Inhibitor, Nonsteroidal Anti-inflammatory Drug Start: 45-05-4497rtuv 1 tablet by mouth in the morningaspirin 81 mg Take 1 tablet (81 mg total) by mouth in the morning. 02/19/2024 Activeatorvastatin 40 mg oral tablet (20 sources)HMG-CoA Reductase InhibitorStart: 02-19-2024 End: 37-90-1632bfry 1 tablet by mouth once dailyatorvastatin (LIPITOR) 40 mg tablet Indications: Coronary artery disease involving [place] coronary artery of [place] heart without angina pectoris Take 1 tablet (40 mg total) by mouth nightly. 90 tablet 3 03/22/2024 Activecholecalciferol 0.05 mg oral tablet (12 sources)Vitamin Dtake 1 tablet by mouth in the morningcholecalciferol, vitamin D3, 2,000 units tablet Take 1 tablet (2,000 Units total) by mouth in the morning. Activedocosahexaenoic acid 120 mg / eicosapentaenoic acid 180 mg oral capsule (12 sources)Start: 09-98-3845ciooh-3, EPA+DHA, (Super [place]-3) 1000 MG capsule Take 1 capsule by mouth in the morning. 02/10/2023 Activeomega-3 (Fish Oil) 1000 MG capsule 1 capsule 1 (one) time each day at the same time. Activedocusate sodium 50 mg / sennosides, fpc 8.6 mg oral tablet (5 sources)Start: 02-19-2024 End: 75-02-9663iuxi 1 tablet by mouth at bedtimesennosides-docusate sodium (SENOKOT-S) 8.6-50 mg Indications: constipation Take 1 tablet by mouth in the morning and at bedtime for 14 days Indications: constipation. 02/19/2024 03/04/2024 Activeeplerenone 25 mg oral tablet (20 sources)Aldosterone AntagonistStart: 10-05-2017 End: 63-03-9052dcwz 1 tablet by mouth in the morningeplerenone (INSPRA) 25 mg tablet Take 1 tablet (25 mg total) by mouth in the morning. 90 tablet 1 ActiveComment on above:Take 25 mg by mouth once daily. furosemide 20 mg oral tablet (20 sources)Loop DiureticStart: 23-89-5600oilh 1 tablet by mouth once daily furosemide (LASIX) 20 mg tablet Indications: Chronic heart failure with preserved ejection fraction(CMS-HCC) Take 1 tablet (20 mg total) by mouth daily. 90 tablet 3 03/22/2024 ActiveStart: 02-29-2024 End: 71-58-3102gqzy 2 tablets by mouth twice daily before mealtime, then take 2 tablets by mouth once dailyfurosemide (LASIX) 20 mg tablet Indications: S/P CABG (coronary artery bypass graft) Take 2 tablets(40 mg total) by mouth 2 (two) times a day before meals for 5 days, THEN 2 tablets (40 mg total) daily for 10 days. 40 tablet 02/29/2024 03/15/2024 ActiveStart: 11-05-2022 End: 79-72-0174klhlnpoomu (Lasix) 20 MG tablet 02/11/2023 Activelevothyroxine sodium 0.1 mg oral tablet (20 sources)l-ThyroxineStart: 05-19-2024 End: 01-23-0590khlr 1 tablet by mouth before mealtimelevothyroxine (Synthroid, Levoxyl) 150 MCG tablet Indications: Adult hypothyroidism (CMS/HCC) Take 1 tablet (150 mcg) by mouth in the morning. Take before meals. 90 tablet 3 05/19/2024 ActiveStart: 02-10-2023 End: 13-76-1721yehp 1 tablet by mouth before mealtimelevothyroxine (Synthroid, Levoxyl) 100 MCG tablet Indications: Adult hypothyroidism Take 1 tablet (100 mcg) by mouth in the morning. Take before meals. 90 tablet 3 06/08/2024 06/08/2025 ActiveSynthroid 100 MCG Oral for 90 Days ActiveComment on above:Take 100 mcg by mouth daily before breakfast.losartan potassium 25 mg oral tablet (18 sources)Angiotensin 2 Receptor BlockerStart: 06-20-2024 End: 53-12-7362kzyb 1 tablet by mouth in the morninglosartan (Cozaar) 25 MG tablet Take 25 mg by mouth in the morning. 06/20/2024 Activemeloxicam 15 mg oral tablet (20 sources)Nonsteroidal Anti-inflammatory DrugStart: 94-59-0074uvov 1 tablet by mouth once daily as needed for painmeloxicam (Mobic) 15 MG tablet Indications: Primary osteoarthritis of left shoulder Take 1 tablet (15 mg) by mouth Daily as needed for mild pain or moderate pain 90 tablet 3 10/28/2023 ActiveStart: 64-84-4458dhvt 1 tablet by mouth once daily as needed for painmeloxicam (Mobic) 15 MG tablet Indications: Primary osteoarthritis of left shoulder Take 1 tablet (15 mg) by mouth Daily as needed for mild pain or moderate pain 90 tablet 3 10/28/2023 ActiveStart: 10-19-2023 End: 26-38-9409xpmw 1 tablet by mouth once daily as needed for painmeloxicam (Mobic) 15 MG tablet Indications: Primary osteoarthritis of left shoulder Take 1 tablet (15 mg) by mouth Daily as needed for mild pain or moderate pain 90 tablet 3 10/28/2023 ActiveStart: 02-10-2023 End: 33-09-5507tvvb 1 tablet by mouth every other dayMeloxicam 15 mg tablet Discontinued 15 MG PO Q2D February 10, 2023 1:00am December 13, 2024 1:04pm Start: 14-50-7539idku 1 tablet by mouth every other daymeloxicam (MOBIC) 15 mg tablet Take 15 mg by mouth once daily. Been taking one every other day 0 05/2017 ActiveComment on above:Take 15 mg by mouth once daily. Been taking one every other day 24 hr metoprolol succinate 25 mg extended release oral tablet (20 sources)beta-Adrenergic BlockerStart: 04-91-8002jcis 1 tablet by mouth once dailyMetoprolol Succinate 25 mg tablet extended release 24 hr Active 25 MG PO Daily December 13, 2024 12:00am Complies with drug therapyStart: 74-52-1594hyln 0.5 tablet by mouth once daily at dinnermetoprolol succinate XL (TOPROL XL) 25 mg 24 hr tablet Indications: Ischemic cardiomyopathy Take 0.5 tablets (12.5 mg total) by mouth daily with dinner. 90 tablet 3 06/20/2024 ActiveStart: 02-19-2024 End: 56-04-2239ffey 1 tablet by mouth oncemetoprolol tartrate (LOPRESSOR) 25 mg tablet Indications: Coronary artery disease involving [place] coronary artery of [place] heart without angina pectoris , Persistent atrial fibrillation (CMS-HCC) Take 1 tablet (25 mg total) by mouth every 12 (twelve) hours. 180 tablet 3 03/22/2024 06/20/2024 Discontinued (Alternate therapy) End: 84-35-0073pgen 1 tablet by mouth in the morningmetoprolol tartrate (Lopressor) 25 MG tablet Take 25 mg by mouth in the morning and 25 mg before bed time. 07/18/2024 DiscontinuedNutritional Supplements (SALMON OIL PO) (3 sources)Nutritional Supplements (SALMON OIL PO) Take by mouth Activesalmon oil/omega-3 fatty acids (SALMON OIL-1000 ORAL) (12 sources)take 2 g by mouth in the morningsalmon oil/omega-3 fatty acids (SALMON OIL-1000 ORAL) Take 2 g by mouth in the morning. Activewarfarin sodium 4 mg oral tablet (20 sources)Vitamin K AntagonistStart: 04-07-2022 End: 35-69-3631trhu 0.5-1 tablets by mouth in the eveningwarfarin (COUMADIN) 4 mg tablet Take 0.5-1 tablets (2-4 mg total) by mouth in the evening. As directed by [facility]. 90 tablet 1 06/13/2024 ActiveStart: 04-07-2022 End: 01-20-8618tcub 1 tablet by mouth two times weeklyWarfarin (Jantoven) 4 mg tablet Discontinued 2 MG PO Twice a Week February 24, 2023 1:00am December 13, 2024 1:06pm On Hold: Resume on 02/26/23. 4 mg tue, wed, thu, sat, sun 2 mg mon and thursStart: 97-63-6685opgmswem (Coumadin) 4 MG tablet Take by mouth Daily. 04/07/2022 ActiveComment on above:Take 2-4 mg by mouth. Completed/Discontinued Medications MedicationDrug Class(es)DatesSig (Normalized)Sig (Original)aluminum hydroxide 40 mg/ml / magnesium hydroxide 40 mg/ml / simethicone 4 mg/ml oral suspension (20 sources)Start: 02-19-2024 End: 19-00-2708eoia 15 mL by mouth every six hours as neededalum-mag hydroxide- simeth (MAALOX) 200-200-20 mg/5 mL suspension Take 15 mL by mouth every 6 (six) hours as needed for indigestion. 02/19/2024 01/02/2025 Discontinued (Therapy completed)apixaban 5 mg oral tablet (1 source)Factor Xa InhibitorStart: 09-28-2017 End: 93-26-1353eaqk 1 tablet by mouth twice dailyELIQUIS 5 mg tab(s) Take 5 mg by mouth twice daily. 0 09/28/2017 06/14/2021 Discontinued (Changing T herapy/Dosage Form)Comment on above:Take 5 mg by mouth twice daily. ascorbic acid 1000 mg extended release oral tablet (20 sources)Vitamin CStart: 02-10-2023 End: 80-70-4676ixwv 1 tablet by mouth once daily in the morningAscorbic Acid (Vitamin C) (Vitamin C) 1,000 mg Tablet Extended Release Discontinued 1000 MG PO Every morning February 10, 2023 1:00am December 13, 2024 1:02pmascorbic acid, vitamin C, 250 mg tablet,chewable Chew 1,000 mg and swallow in the morning. Activeascorbic acid (Vitamin C) 250 MG chewable tablet Chew Activebisacodyl 10 mg rectal suppository (20 sources)Stimulant LaxativeStart: 02-19-2024 End: 88-82-0947nlfzrufsW (DULCOLAX) 10 mg suppository Indications: constipation Insert 1 suppository (10 mg total)into the rectum daily as needed for constipation (if magnesium hydroxide [MILK OF MAGNESIA] ineffective after 8 hours.) Indications: constipation. 02/19/2024 01/02/2025 Discontinued (Therapy completed)bisoprolol fumarate 5 mg / hydroCHLOROthiazide 6.25 mg oral tablet (20 sources)Thiazide Diuretic, beta-Adrenergic BlockerStart: 02-23-2023 End: 59-37-0365exsxbctzjv-hydroCHLOROthiazide (ZIAC) 5-6.25 mg per tablet TAKE 1 TABLET IN THE EVENING. 90 tablet 1 10/30/2023 SuspendedStart: 02-23-2023 bisoprolol-hydroCHLOROthiazide (Ziac) 5-6.25 MG tablet 02/23/2023 ActiveStart: 49-64-9559flrb 1 tablet by mouth once daily in the morningBisoprolol- Hydrochlorothiazide 5-6.25 mg tablet Active 1 TAB PO Every morning February 10, 2023 1:00am Complies with drug therapyBisoprolol-hydroCHLOROthiazide 5-6.25 MG Oral for 90 Days Activechlorhexidine gluconate 1.2 mg/ml mouthwash (6 sources)Start: 73-77-6940srqy 1 dose by mouth twice dailychlorhexidine (PERIDEX) 0.12 % solution Apply 15 mL to the mouth or throat in the morning and 15 mLbefore bedtime. Swish in mouth for 30 seconds then spit it out. Do this twice daily with the last dose being administered the morning of your heart surgery.. 120 mL 02/09/2024 Suspended0.8 ml enoxaparin sodium 150 mg/ml prefilled syringe (20 sources)Low Molecular Weight HeparinStart: 02-09-2024 End: 76-65-9800rlmvdi 0.74 mL by subcutaneous injection onceenoxaparin (LOVENOX) 120 mg/0.8 mL syringe Indications: Persistent atrial fibrillation (CMS-HCC) , L twyla term (current) use of anticoagulants Inject 0.74 mL (111 mg total) under the skin Every 12 (twelve) hours. as directed by Amberly HANDY (Medication Therapy Management) 8 mL 02/09/2024 01/02/2025 Discontinued (Therapy completed)magnesium hydroxide 80 mg/ml oral suspension (20 sources)Start: 02-19-2024 End: 63-77-5094aoaa 15 mL by mouth once daily as needed for constipation magnesium hydroxide (MILK OF MAGNESIA) 400 mg/5 mL suspension Indications: constipation Take 15 mL by mouth daily as needed (constipation) Indications: constipation. 02/19/2024 01/02/2025 Discontinued (Therapy completed)Start: 87-99-3896xnns 30 mL by mouth once daily as needed for constipationmagnesium hydroxide (MOM) 400 mg/5 mL suspension Take 30 mL by mouth once daily as needed for Constipation. 473 mL 0 04/08/2018 ActiveComment on above:Take 30 mL by mouth once daily as needed for Constipation.melatonin 5 mg oral tablet (20 sources)Start: 02-19-2024 End: 25-21-9611ecxu 1 tablet by mouth once daily as neededmelatonin (CIRCADIN) 5 mg tablet Take 1 tablet (5 mg total) by mouth nightly as needed (Insomnia). 1 04/21/2023 01/02/2025 Discontinued (Therapy completed)mupirocin 0.02 mg/mg topical ointment (6 sources)RNA Synthetase Inhibitor AntibacterialStart: 02-09-2024 End: 70-30-9735kdutszgwt (BACTROBAN) 2 % ointment Apply 1 Application topically in the morning and 1 Application before bedtime. Do all this for 10 days. Apply a thin layer of ointment to the inside of both nostrils with a cotton swab. Do this twice daily with the last dose being administered the morning of your heart surgery.. 22 g 02/09/2024 02/19/2024 SuspendedOmega 1-Gxl-Dvd-Fish Oil (Fish Oil) 1,200 (144-216) mg Capsule (3 sources)Start: 02-10-2023 End: 78-00-5366obgh 1 capsule by mouth once daily in the morningOmega 5-Wth-Ylf-Fish Oil (Fish Oil) 1,200 (144-216) mg Capsule Discontinued 1 CAP PO Every morning February 10, 2023 1:00am December 13, 2024 1:04pmStart: 79-10-0249xgii 1 capsule by mouth once daily in the morningOmega 5-Kcc-Ihj-Fish Oil (Fish Oil) 1,200 (144-216) mg Capsule Active 1 CAP PO Every morning February 10, 2023 12:00amomega 6-dpe-mjl-fish oil 300-1,000 mg capsule (20 sources)omega 7-ofe-gms-fish oil 300-1,000 mg capsule Take by mouth. Suspendedomega 5-dey-esj-fish oil 300-1,000 mg capsule Take by mouth. Active omega 7-wfc-qhy-fish oil 300-1,000 mg capsule Take by mouth. 0 Active pantoprazole 40 mg delayed release oral tablet (20 sources)Proton Pump InhibitorStart: 02-20-2024 End: 72-41-6319pgcv 1 tablet by mouth once daily before breakfastpantoprazole (PROTONIX) 40 mg EC tablet Take 1 tablet (40 mg total) by mouth every morning before breakfast. 02/20/2024 01/02/2025 Discontinued (Therapy completed) rosuvastatin calcium 5 mg oral tablet (6 sources)HMG-CoA Reductase InhibitorStart: 08-21-2022 End: 26-65-5187uryk 1 tablet by mouth in the morningrosuvastatin (Crestor) 5 MG tablet Take 5 mg by mouth in the morning. 08/21/2022 01/18/2024 Discontinued tamsulosin hydrochloride 0.4 mg oral capsule (20 sources)alpha-Adrenergic BlockerStart: 02-19-2024 End: 07-00-3283ilyq 1 capsule by mouth once dailytamsulosin (FLOMAX) 0.4 mg capsule Take 1 capsule (0.4 mg total) by mouth nightly. 02/19/2024 01/02/2025 Discontinued (Therapy completed) Problems Active Problems Problem ClassificationProblemDateDocumented DateEpisodic/ChronicAortic; peripheral; and visceral artery aneurysms (5 sources)Dilatation of aorta; Translations: [Aortic ectasia, unspecified site] Onset: 000406-96-7759FztojleXfgrlxr dysrhythmias (20 sources)Persistent atrial fibrillation; Translations: [Other persistent atrial fibrillation]Onset: 416968-76-8158JqcjvkuSixgzphgpxymk of surgical procedures or medical care (1 source)Disruption of external operation (surgical) wound, not elsewhere classified, initial encounterEpisodicCongestive heart failure; nonhypertensive (20 sources)Chronic systolic heart failure; Translations: [Chronic systolic (congestive) heart failure]Onset: 299067-63-2064IbptkusVvzwpmmn atherosclerosis and other heart disease (20 sources)Atypical angina; Translations: [Anginal equivalent]Onset: 01-29-2024 18-15-0453BoxebbxKijnlqlmu of lipid metabolism (20 sources)Dyslipidemia; Translations: [Hyperlipidemia, unspecified]Onset: 920992-44-6965WaplshrRhrcpmdiu hypertension (20 sources)Essential (primary) hypertension; Translations: [Benign hypertension]Onset: 620876-52-0396BjoyjnwUiombwuacdrqrrgu hemorrhage (5 sources)Hematochezia; Translations: [Blood-tinged feces]Onset: 01-09-2025 EpisodicMycoses (2 sources)Onychomycosis; Translations: [Tinea unguium]24-45-0433Brnqsnde Osteoarthritis (20 sources)Osteoarthritis of joint of left shoulder region; Translations: [Primary osteoarthritis, left shoulder]Onset: 914573-08-1837ZryptmpCrwef acquired deformities (1 source)Contracture, left ankle; Translations: [CONTRACTURE LEFT ANKLE]Onset: 15-56-0812AizvczcVokth and ill-defined heart disease (20 sources)Left ventricular cardiac dysfunction; Translations: [Heart disease, unspecified]Onset: 446639-58-6028NayhnduTeopg and ill-defined heart disease (2 sources)Heart disease, unspecified; Translations: [Heart disease, unspecified]Onset: 64-54-1894XqdnmlwRgdhz and unspecified benign neoplasm (2 sources)Melanocytic nevus of trunk; Translations: [Melanocytic nevi of trunk] 44-57-8947StdrutluOryof and unspecified benign neoplasm (2 sources)Skin lesion; Translations: [Hemangioma of skin and subcutaneous tissue]65-32-2298ZftakwmbDtbce and unspecified benign neoplasm (1 source)History of polyp of colonEpisodicOther bone disease and musculoskeletal deformities (1 source)Bone necrosis; Translations: [Osteonecrosis, unspecified]ChronicOther connective tissue disease (1 source)Presence of artificial knee joint, bilateral; Translations: [PRESENCE ARTIFICIAL KNEE JNT BILAT]Onset: 33-20-7076FwurbziMgcjy connective tissue disease (20 sources)History of left shoulder arthroplasty; Translations: [Presence of left artificial shoulder joint]Onset: 769354-35-0435GqknmarGecvk connective tissue disease (5 sources)Pain in left foot; Translations: [PAIN IN LEFT FOOT]Onset: 04-10-2022 EpisodicOther gastrointestinal disorders (2 sources)Constipation; Translations: [Constipation, unspecified]12-14-2024 EpisodicOther injuries and conditions due to external causes (1 source)Other injury of unspecified body region, initial encounterEpisodic Other lower respiratory disease (2 sources)Nodule of lung; Translations: [Solitary pulmonary nodule]12-14-2024 EpisodicOther nervous system disorders (20 sources)Difficulty walking; Translations: [Difficulty in walking, not elsewhere classified]Onset: 991137-81-4730OespsroSlstd nervous system disorders (1 source)Neuropathy; Translations: [Polyneuropathy, unspecified]12-14-2024 ChronicOther non-epithelial cancer of skin (4 sources)Basal cell carcinoma of skin of other parts of face; Translations: [History of malignant basal cellneoplasm of skin]Onset: EpisodicOther non-traumatic joint disorders (20 sources)Bilateral rotator cuff arthropathy of shoulder; Translations: [Other specific arthropathies, not elsewhere classified, right shoulder]Onset: 100951-78-4571RmicpdxFvvne non-traumatic joint disorders (2 sources)Instability of joint of left ankle; Translations: [Other instability, left ankle]EpisodicOther non-traumatic joint disorders (2 sources)Chronic ankle pain; Translations: [Pain in left ankle and joints of left foot]EpisodicOther non-traumatic joint disorders (1 source)Ankle pain; Translations: [Pain in left ankle and joints of left foot] EpisodicOther screening for suspected conditions (not mental disorders or infectious disease) (2 sources)INR raised; Translations: [Abnormal coagulation profile]12-14-2024 EpisodicOther skin disorders (2 sources)Seborrheic keratosis; Translations: [Other seborrheic keratosis] 73-44-6638RcqydryeIoxue skin disorders (2 sources)Actinic keratosis; Translations: [Actinic keratosis]07-26-2024 EpisodicOther skin disorders (2 sources)Lentiginosis; Translations: [Other melanin hyperpigmentation] 24-30-8442GgooozxhVzxcr skin disorders (2 sources)Skin tag; Translations: [Other hypertrophic disorders of the skin] 07-99-9462OmonyupoZwmjm skin disorders (1 source)Mass of neck; Translations: [Localized swelling, mass and lump, neck] 58-20-0491CetsqoijIglqqrs on above:benign tumor removed at jaw areaPulmonary heart disease (20 sources)Pulmonary hypertension; Translations: [Pulmonary hypertension, unspecified]Onset: 259927-41-7337WhgkvpjPsprfyh disorders (20 sources)Hypothyroidism, unspecified; Translations: [Hypothyroidism]Onset: 089066-83-0238SrfcglcUzqhijsnpfle (4 sources)CONTACT W/AND (SUSP) EXPOS COVID-19; Translations: [CONTACT W/AND (SUSP) EXPOS COVID-19]Onset: 39-99-2572Qosfzynlxqdb (1 source)Chronic atrial fibrillation, unspecified; Translations: [CHRONIC ATRIAL FIBRILLATION UNSPEC]Onset: 66-91-8464Oterlcadjhyj (1 source)Encounter for preprocedural laboratory examination; Translations: [Encounter for preprocedural laboratory examination]Onset: 02-10-2023 Unclassified (2 sources)Other persistent atrial fibrillation; Translations: [Other persistent atrial fibrillation]Onset: 37-73-6360Chmvmatrasht (1 source)PHTN, angina equivalent, LVDOnset: 88-71-2661Yakjkztpynxa (1 source)K92.1 - Melena,Z86.0100 - Personal history of colon polyps, unspecifiedUnclassified (1 source)Personal history of colon polyps, unspecified; Translations: [Personal history of colon polyps, unspecified]Onset: 01-09-2025 Past or Other Problems Problem ClassificationProblemDateDocumented DateEpisodic/ChronicAcquired foot deformities (20 sources)Acquired valgus deformity of left ankle; Translations: [Valgus deformity, not elsewhere classified,left ankle]Onset: 08-95-5474Vopnadum Complication of device; implant or graft (20 sources)Pain due to internal prosthetic device; Translations: [Pain due to internal orthopedic prosthetic devices, implants and grafts, initial encounter] Onset: 690516-24-8465LoejvcskVxqdxmzv atherosclerosis and other heart disease (2 sources)Presence of aortocoronary bypass graft; Translations: [Presence of aortocoronary bypass graft]Onset: 70-77-7794RzrggiuqXkqfyhgkrx and other anemia (2 sources)Anemia, unspecified; Translations: [Anemia, unspecified]Onset: 40-04-1853MufekwcyInqh disorders (20 sources)Mood disordersOnset: 12-15-2019 Resolved: 746336-17-2669Ypvtalbrbvt chest pain (20 sources)Chest pain; Translations: [Chest pain, unspecified]Onset: 04-09-2016 Resolved: 335487-39-8911EsozxcvrTzwnf aftercare (3 sources)exterminator termite (current) use of anticoagulants; Translations: [FCI CURRNT USE ANTICOAGULANTS]Onset: 37-15-0095VwqheoioAntac aftercare (4 sources)Other long term acute care registered nurse (current) drug therapy; Translations: [OTH LINEWORKER CURRENT DRUG THERAPY]Onset: 20-47-5956IypvkhkjLoxcl aftercare (20 sources)Long-term current use of anticoagulant; Translations: [longterm (current) use of anticoagulants]Onset: 047921-99-0499SekrjjtlKlibc aftercare (20 sources)Long-term current use of drug therapy; Translations: [Other long term acute care registered nurse (current) drug therapy]Onset: 098750-81-2108LwfltdypShatf aftercare (4 sources)Patient encounter status; Translations: [Other long term acute care registered nurse (current) drug therapy]Onset: 448667-97-6553XvejxhzmVxqdz aftercare (20 sources)Anticoagulant effect; Translations: [exterminator termite (current) use of anticoagulants]Onset: 086506-09-6305GomqvkhrKpwjn aftercare (1 source)Encounter for therapeutic drug level monitoring; Translations: [Encounter for therapeutic drug level monitoring]Onset: 17-19-7982DjzhrxgoXqdrz circulatory disease (1 source)Other specified symptoms and signs involving the circulatory and respiratory systems; Translations:[OTH SPEC SX SIGNS INVLV CIRC RS]Onset: 36-13-2715JybrphlyOfogv connective tissue disease (20 sources)Full thickness rotator cuff tear; Translations: [Complete rotator cuff tear or rupture of left shoulder, not specified as traumatic]Onset: 720712-58-3958FcascpcoMrknt connective tissue disease (20 sources)Rotator cuff arthropathy of right shoulder; Translations: [Unspecified rotator cuff tear or ruptureof right shoulder, not specified as traumatic]Onset: 316838-41-8534WtqleoyuMalkz connective tissue disease (20 sources)Rotator cuff arthropathy of left shoulder; Translations: [Unspecified rotator cuff tear or rupture of left shoulder, not specified as traumatic]Onset: 980128-75-0988KwhxckufKknli connective tissue disease (20 sources)Dysfunction of posterior tibial tendon; Translations: [Posterior tibial tendinitis, unspecified leg]Onset: 350158-84-1803KyccwbzmEarob ear and sense organ disorders (20 sources)Otalgia, left ear; Translations: [Otalgia, unspecified]Onset: 12-15-2019 Resolved: 404579-05-9668RvbyxsbhYfexr lower respiratory disease (1 source)Other nonspecific abnormal finding of lung field; Translations: [OTH NONSPECIFIC ABN FIND LNG FIELD]Onset: 11-69-5210RigxymjuXozdf lower respiratory disease (20 sources)Dyspnea; Translations: [Shortness of breath]Onset: 04-09-2016 Resolved: 875073-63-7915NupkqxygXinhr lower respiratory disease (1 source)Shortness of breath; Translations: [Shortness of breath]Onset: 54-55-7641YnynqvcaOywwo nervous system disorders (12 sources)Drug-induced myopathy; Translations: [Drug-induced myopathy]Onset: 01-18-2024 Resolved: 262020-42-0774NvcfxbyqVqihr nervous system disorders (20 sources)Abnormal gait; Translations: [Unspecified abnormalities of gait and mobility]Onset: 10-02-2022 Resolved: 693970-86-1775QnezfnzsBxdzg nervous system disorders (20 sources)Drug-induced myopathy; Translations: [Toxic myopathy]Onset: 01-18-2024 Resolved: 070097-15-4615YlbsyewqBoqmj non-traumatic joint disorders (1 source)Other instability, left ankle; Translations: [OTHER INSTABILITY LEFT ANKLE]Onset: 72-27-1120HiohwaoaVuadl non-traumatic joint disorders (20 sources)Pain in left knee; Translations: [Pain in joint, lower leg]Onset: 358207-81-9372WvvbupqfByor-; endo-; and myocarditis; cardiomyopathy (except that caused by tuberculosis or sexually transmitted disease) (1 source)Pericardial effusion (noninflammatory); Translations: [PERICARDIAL EFFUSION NONINFLAMM]Onset: 22-34-9525PidkpsqfHnmaxhxlfsr injury; contusion (20 sources)Contusion of knee; Translations: [Contusion of unspecified knee, initial encounter]Onset: 10-02-2022 Resolved: 248636-27-1030BduclocgMrfstgvwxyuc (1 source)CONTACT W/AND (SUSP) EXPOS COVID-19; Translations: [CONTACT W/AND (SUSP) EXPOS COVID-19]Onset: 06-04-2022 Results Test NameValueInterpretationReference RangeFacilityLIPID PROFILEon 01-10-2025 Cholesterol [Mass/Vol]105 mg/lPYwa819-939ExhMbkexf Uxbridge HospitalComment on above:Performed By: #### LIPR #### [facility] ([facility]) [address] [place] [address] VIRCholesterol in HDL [Mass/Vol]51 mg/dLNormal>39Met[facility] Medical CenterComment on above:Result Comment: HDL <40 mg/dL - High Risk HDL > or = 40mg/dL- Desirable HDL >60 mg/dL - Negative RiskPerformed By: #### LIPR #### [facility] ([facility]) [address] [place] [address] VIRCholesterol in LDL [Mass/Vol]41 mg/dLNormal<130Met[facility] Medical CenterComment on above:Result Comment: LDL <100 mg/dL - Desirable LDL >160 mg/dL - High RiskPerformed By: #### LIPR #### [facility] ([facility]) [address] [place] [address] VIRCHOLESTEROL:HDL2.3Mvzthg1.0-5.0[facility] Comment on above:Performed By: #### LIPR #### [facility] ([facility]) [address] [place] [address] VIRTriglyceride [Mass/Vol]65 mg/dLWoapmt08-291UthHjxewcMetroHealth Parma Medical CenterComment on above:Performed By: #### LIPR #### [facility] ([facility]) [address] [place] [address] VIRVERY LOW QXZKUQGFDDA41 mg/dLNormal0-30[facility] Medical CenterComment on above:Performed By: #### LIPR #### [facility] ([facility]) [address] [place] [address] VIRPOCT Protime / INRon 37-63-2136VCJ Coag (PPP) [Relative time]2.0 {INR}Abnormal0.8 - 1.2PPomerene HospitalInterpretation and review of laboratory resultsAbnoJeanes HospitalCBC W Auto Differential panel (Bld)on 05-11-0613Dmyvyrili (Bld) [#/Vol]69 10*3/uLNOGA HealthcareBasophils/100 WBC (Bld)1.3 %[facility] HospitalEosinophils (Bld) [#/Vol] 239 10*3/uLNOGA HealthcareEosinophils/100 WBC (Bld)4.5 %[facility] Erythrocyte distribution width (RBC) [Ratio]14.4 %11.0 - 15.0 %[facility] Hematocrit (Bld) [Volume fraction]29.7 %Low38.5 - 50.0 %[facility] Hemoglobin (Bld) [Mass/Vol]9.4 g/dLLow13.2 - 17.1 g/dLSoutheast Missouri Hospital Interpretation and review of laboratory resultsAbnormWellSpan Waynes[facility] Hospital Lymphocytes (Bld) [#/Vol]1357 10*3/uLSoutheast Missouri HospitalLymphocytes/100 WBC (Bld) 25.6 %[facility] HospitalMCH (RBC) [Entitic mass]29.5 pg27.0 - 33.0 pgSoutheast Missouri HospitalMCHC (RBC) [Mass/Vol]31.6 g/dLLow32.0 - 36.0 g/dLSoutheast Missouri Hospital Comment on above:For adults, a slight decrease in the calculated MCHC value (in the range of 30 to 32 g/dL) is most likely not clinically significant; however, it should be interpreted with caution in correlation with other red cell parameters and the patient's clinical condition. MCV (RBC) [Entitic vol]93.1 fL80.0 - 100.0 fLSoutheast Missouri HospitalMonocytes (Bld) [#/Vol]350 10*3/uLNOGA HealthcareMonocytes/100 WBC (Bld)6.6 %[facility] Neutrophils (Bld) [#/Vol]3286 10*3/uLNOSSM Health CareNeutrophils/100 WBC (Bld)62 %[facility] HospitalPlatelet mean volume (Bld) [Entitic vol]10.0 fL7.5 - 12.5 fLBLUE MOUNTAIN HOSPITAL HealthcarePlatelets (Bld) [#/Vol]254 10*3/uLNOSSM Health CareRBC (Bld) [#/Vol]3.19 10*6/uLLowNOMS HealthcareWBC (Bld) [#/Vol]5.3 10*3/uLNOSSM Health CareNo Panel Informationon 01-14-0298Edkivfnmus Organization Information Site ID: QPT Name: [facility] Address: [address] [place] [address] Director: Waldo Vivar MDNovant Health Clemmons Medical CenterPSAon 89-28-2177Gfpbvohu specific Ag [Mass/Vol]0.80 ng/mL< OR = 4.00NOGA HealthcareComment on above:The total PSA value from this assay system is standardized against the WHO standard. The test result will be approximately 20% lower when compared to the equimolar-standardized total PSA (Nedra Kayla). Comparison of serial PSA results should be interpreted with this fact in mind. This test was performed using the Siemens chemiluminescent method. Values obtained from different assay methods cannot be used interchangeably. PSA levels, regardless of value, should not be interpreted as absolute evidence of the presence or absence of disease. CBC W Auto Differential panel (Bld)on 65-54-9579Mveezwdoj (Bld) [#/Vol]59 10*3/uLNOMS HealthcareBasophils/100 WBC (Bld)1.1 %[facility] HealthcareEosinophils (Bld) [#/Vol]200 10*3/uLNOMS HealthcareEosinophils/100 WBC (Bld)3.7 %[facility] HospitalErythrocyte distribution width (RBC) [Ratio]14.7 %11.0 - 15.0 %[facility] HospitalHematocrit (Bld) [Volume fraction]34 %Low38.5 - 50.0 %[facility] Hemoglobin (Bld) [Mass/Vol]11 g/dLLow13.2 - 17.1 g/dLSoutheast Missouri HospitalLymphocytes (Bld) [#/Vol]1328 10*3/uLNOMS HealthcareLymphocytes/100 WBC (Bld)24.6 %[facility] HospitalMCH (RBC) [Entitic mass]29.7 pg27.0 - 33.0 pgHeartland Behavioral Health ServicesHC (RBC) [Mass/Vol]32.4 g/dL32.0 - 36.0 g/dLNOMS HealthcareComment on above:For adults, a slight decrease in the calculated MCHC value (in the range of 30 to 32 g/dL) is most likely not clinically significant; however, it should be interpreted with caution in correlation with other red cell parameters and the patient's clinical condition. MCV (RBC) [Entitic vol]91.9 fL80.0 - 100.0 fLNOMS HealthcareMonocytes (Bld) [#/Vol]410 10*3/uLNOMS HealthcareMonocytes/100 WBC (Bld)7.6 %[facility] Neutrophils (Bld) [#/Vol]3402 10*3/uLNOMS HealthcareNeutrophils/100 WBC (Bld)63 %NOMS HealthcarePlatelet mean volume (Bld) [Entitic vol]10.4 fL7.5 - 12.5 fLNOGA HealthcarePlatelets (Bld) [#/Vol]212 10*3/uLNOMS HealthcareRBC (Bld) [#/Vol]3.7 10*6/uLLowNOMS HealthcareWBC (Bld) [#/Vol]5.4 10*3/uLNOMS Healthcare Comprehensive metabolic panelon 65-41-1813Lfiuzdx [Mass/Vol]4.1 g/dL3.6 - 5.1 g/dLNOGA HealthcareAlbumin/Globulin [Mass ratio]1.4 {ratio}NOMS HealthcareALP [Catalytic activity/Vol]51 U/L35 - 144 U/LNOMS HealthcareALT [Catalytic activity/Vol]11 U/L9 - 46 U/LNOMS HealthcareAST [Catalytic activity/Vol]15 U/L10 - 35 U/LNOMS HealthcareBilirubin [Mass/Vol]0.6 mg/dL0.2 - 1.2 mg/dLNOGA HealthcareCalcium [Mass/Vol]9.6 mg/dL8.6 - 10.3 mg/dLNOGA HealthcareChloride [Moles/Vol]102 mmol/L98 - 110 mmol/LNOMS HealthcareCO2 [Moles/Vol]26 mmol/L20 - 32 mmol/LNOMS HealthcareCreatinine [Mass/Vol]1.12 mg/dL0.70 - 1.28 mg/dLNOGA HealthcareGFR/1.73 sq M.predicted among non-blacks MDRD (S/P/Bld) [Vol rate/Area]67 mL/min/{1.73_m2}> OR = 60 mL/min/1.98x6LAVY HealthcareGlobulin (S) [Mass/Vol]2.9 g/dLNOGA HealthcareGlucose [Mass/Vol]121 mg/eCYlhi16 - 99 mg/dL [facility] HealthcareComment on above: Fasting reference interval For someone without known diabetes, a glucose value between 100 and 125 mg/dL is consistent with prediabetes and should be confirmed with a follow-up test. Potassium [Moles/Vol]4.4 mmol/L3.5 - 5.3 mmol/LNOMS HealthcareProtein [Mass/Vol] 7 g/dL6.1 - 8.1 g/dLNOGA HealthcareSodium [Moles/Vol]137 mmol/L135 - 146 mmol/L [facility] HealthcareUrea nitrogen [Mass/Vol]18 mg/dL7 - 25 mg/dLNOGA HealthcareUrea nitrogen/Creatinine [Mass ratio]SEE NOTE:[facility] HealthcareComment on above:Not Reported: BUN and Creatinine are within reference range. No Panel Informationon 36-05-4007Fdhyvnjnlosvya and review of laboratory results AbnormalBLUE MOUNTAIN HOSPITAL HealthcarePerforming Organization Information Site ID: QPT Name: [facility] Address: [address] [place] [address], [address] [place] [id number] Director: Waldo Vivar MDNovant Health Clemmons Medical CenterPT Coag (Bld) [Time]on 04-15-3038PQH Coag (PPP) [Relative time]3.5 {INR}HighBLUE MOUNTAIN HOSPITAL HealthcareComment on above:Reference Range 0.9-1.1 Moderate-intensity Warfarin Therapy 2.0-3.0 Higher-intensity Warfarin Therapy 3.0-4.0 PT Coag (PPP) [Time]33.9 [facility] HospitalComment on above:For additional information, please refer to http://education.InOpen/faq/FUI227 (This link is being provided for informational/ educational purposes only.) POCT Protime / INRon 21-92-9018SHH Coag (PPP) [Relative time]3 {INR}Abnormal0.8 - 1.2PCleveland [facility] Luther[facility] SystemInterpretation and review of laboratory results AbnormalProVan Wert County Hospital [facility] SystemITPon 93-72-5182Jwz [place] [address] Cardiac Rehab Report Signed Patient: REMI ZARCO MR#: [id number] : 1945 Acct:[id number] Age/Sex: 79 / M ADM Date: 09/15/24 Loc: CR Attending Dr: NicolasStaff Physician Medina Ordering Physician: Atif Shankar D.O. 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 Electronically Signed On 09-19-2024 18:02:15 EDT by Atif Shankar Dictated By: Atif Shankar D.O. Signed By: 09/19/24180109/19/241801 DD/ 0816 TD/TT: Technical Account Executive:TBHRadiology, Radiologist, - 09/19/2024 [place] [address] Cardiac Rehab Report Signed Patient: REMI ZARCO MR#: [id number] : 1945 Acct:[id number] Age/Sex: 79 / M ADM Date: 09/15/24 Loc: CR Attending Dr: NicolasStaff Physician Medina Ordering Physician: Atif Shankar D.O. 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 Electronically Signed On 09-19-2024 18:02:15 EDT by Atif Shankar Dictated By: Atif Shankar D.O. Signed By: 09/19/242 09/19/242 DD/ TD/TT: Technical Account Executive: STEPHEN KapoorPOrdered By: Radiologist Radiology on 89-88-1669Z[facility] Work Phone: POCT Protime / INRon 49-38-7982DMQ Coag (PPP) [Relative time]2.8 {INR}Abnormal0.8 - 1.2PCleveland [facility] Luther[facility] SystemInterpretation and review of laboratory resultsAbnoWestern Wisconsin Health SystemITPon 19-63-9125Maarctksh Study observation (narrative)STEPHEN [facility] Medical CenterITP on 34-85-7132[place] [address] Cardiac Rehab Report Signed Patient: REMI ZARCO MR#: [id number] : 1945 Acct:[id number] Age/Sex: 79 / M ADM Date: 09/12/24 Loc: CR Attending Dr: Non-Staff Physician Carol Ordering Physician: Atif Shankar D.O. 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 Electronically Signed On 09-14-2024 10:12:45 EDT by Atif Shankar Dictated By: Atif Shankar D.O. Signed By: 09/14/24 1013 09/14/24 1013 DD/ 0802 TD/TT: Technical Account Executive:ANGLEadiolVelma olvera MD - 09/14/2024 [place] [address] Cardiac Rehab Report Signed Patient: REMI ZARCO MR#: [id number] : 1945 Acct:[id number] Age/Sex: 79 / M ADM Date: 09/12/24 Loc: CR Attending Dr: NicolasStaff Physician Medina Ordering Physician: Atif Shankar D.O. 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 Electronically Signed On 09-14-2024 10:12:45 EDT by Atif Shankar Dictated By: Atif Shankar D.O. Signed By: 09/14/24 1013 09/14/24 1013 DD/ 0802 TD/TT: Technical Account Executive: STEPHEN NavarroITPOrdered By: Radiologist Radiology on 73-14-1659UQRKSoutheast Missouri Hospital Work Phone: ITPon 78-57-2608Kaklzecpw Study observation (narrative)CARMENRay County Memorial HospitalITPon 83-87-7942Cwo [place] [address] Cardiac Rehab Report Signed Patient: REMI ZARCO MR#: [id number] : 1945 Acct:[id number] Age/Sex: 79 / M ADM Date: 08/22/24 Loc: CR Attending Dr: NicolasStaff Physician Medina Ordering Physician: Gil Gee M.D. 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 Electronically Signed On 08-22-2024 18:31:30 EDT by Atif Shankar Dictated By: Atif Shankar D.O. Signed By: 08/22/24183108/22/241831 DD/ 0746 TD/TT: Technical Account Executive:TBHRadiology, Radiologist, MD - 08/22/2024 [place] [address] Cardiac Rehab Report Signed Patient: REMI ZARCO MR#: [id number] : 1945 Acct:[id number] Age/Sex: 79 / M ADM Date: 08/22/24 Loc: CR Attending Dr: Non-Staff Physician Carol Ordering Physician: Gil Gee M.D. 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 Electronically Signed On 08-22-2024 18:31:30 EDT by Atif Shankar Dictated By: Atif Shankar D.O. Signed By: 08/22/24183108/22/241831 DD/ 0746 TD/TT: Technical Account Executive: STEPHEN NavarroITPOrdered By: Radiologist Radiology on 42-36-3929OTSL [employer] [facility] Work Phone: ITPon 17-95-9219Zvxvkhkxn Study observation (narrative)STEPHEN NavarroNo Panel Informationon 94-38-3607YMMX HealthcareXR FOOT RT MIN 3Von 17-20-1441Vne [place] [address] XRay Report Signed Patient: REMI ZARCO MR#: [id number] : 1945 Acct:[id number] Age/Sex: 79 / M ADM Date: 07/21/24 Loc: RAD Attending Dr: Lexi Hernandez D.P.M. Ordering Physician: Lexi Hernandez D.P.M. Date of Service: 07/21/24 Procedure(s): XR foot RT min 3V Accession Number(s): [id number] cc: Lexi Hernandez D.P.M.; Gil Gee M.D. [place] [address] Patient Name: REMI ZARCO MRN: [id number] date: 1945 Sex: M Assigned Patient Location: [facility] Current Patient Location: [facility] Accession/Order Number: [id number] Exam Date: 07/21/2024 13:39 Report Date: 07/21/2024 13:40 At the request of: LEXI HERNANDEZ DPM Procedure: XR foot RT min 3V [...] Barrios M.D. 07/21/2024 1:40 PM Dictation Location: [place] [address] Electronically authenticated by: [id number] Y Date: 07/21/2024 13:40 Dictated By: Cristian Barrios M.D. Signed By: 07/21/24 1342 DD/ 1340 TD/TT: Technical Account Executive:TBHRadiology, Radiologist, - 07/21/[address] [address] XRay Report Signed Patient: REMI ZARCO MR#: [id number] : 1945 Acct:[id number] Age/Sex: 79 / M ADM Date: 07/21/24 Loc: RAD Attending Dr: Lexi Hernandez D.P.M. Ordering Physician: Lexi Hernandez D.P.M. Date of Service: 07/21/24 Procedure(s): XR foot RT min 3V Accession Number(s): [id number] cc: Lexi Hernandez D.P.M.; Gil Gee M.D. The [place] [id number] Patient Name: REMI ZARCO MRN: [id number] date: 1945 Sex: M Assigned Patient Location: [facility] Current Patient Location: [facility] Accession/Order Number: [id number] Exam Date: 07/21/2024 13:39 Report Date: 07/21/2024 13:40 At the request of: LEXI HERNANDEZ DPM Procedure: XR foot RT min 3V [...] Barrios M.D. 07/21/2024 1:40 PM Dictation Location: [place] [address] Electronically authenticated by: [id number] Y Date: 07/21/2024 13:40 Dictated By: Cristian Barrios M.D. Signed By: 07/21/24 1342 DD/ 1340 TD/TT: Technical Account Executive: STEPHEN HealthcareRadiology Study observation (narrative)STEPHEN HealthcareXR FOOT RT MIN 3VOrdered By: Radiologist Radiology on 97-85-2436[facility] Work Phone: ITPon 65-25-0897[place]ww[place] [address] Cardiac Rehab Report Signed Patient: REMI ZARCO MR#: [id number] : 1945 Acct:[id number] Age/Sex: 79 / M ADM Date: 07/05/24 Loc: CR Attending Dr: Danii-Staff Physician Medina Ordering Physician: Gil Gee M.D. 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 Ordering Physician: Naderer,Gil M.D. 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: : 1945 Requested By: GIL GEE Order Number: [id number] Higinio MD: Atif Shankar Interpretive Statements Good that [...] 07/18/24 1556 07/18/24 1556 DD/ 1108 TD/TT: Technical Account Executive: STEPHEN NavarroRadiology Study observation (narrative)NOMS HealthcareITPOrdered By: Radiologist Radiology on 13-27-2044SOIBSoutheast [facility] Hospital Work Phone: POCT Protime / INRon 79-67-7548CXS Coag (PPP) [Relative time]1.6 {INR}Abnormal0.8 - 1.2ProMedica Health SystemInterpretation and review of laboratory resultsAbnormalProVan Wert County Hospital SystemProVan Wert County Hospital SystemNo Panel InformationOrdered By: Radiologist Radiology on 81-66-8260NWHT [employer] [facility] Work Phone: No Panel Informationon 30-47-5975Krnkxydyb Study observation (narrative)NOMRay County Memorial HospitalXR ANKLE LT MIN 3Von 51-58-6113[place]zvB[place], [place] [address] XRay Report Signed Patient: REMI ZARCO MR#: [id number] : 1945 Acct:[id number] Age/Sex: 79 / M ADM Date: 07/14/24 Loc: RAD Attending Dr: Lexi Hernandez D.P.M. Ordering Physician: Lexi Hernandez D.P.M. Date of Service: 07/14/24 Procedure(s): XR ankle LT min 3V Accession Number(s): [id number] cc: Lexi Hernandez D.P.M.; Gil Gee M.D. The [address] [address] Patient Name: REMI ZARCO MRN: [id number] date: 1945 Sex: M Assigned Patient Location: RAD Current Patient Location: RAD Accession/Order Number: [id number] Exam Date: 07/14/2024 13:44 Report Date: 07/14/2024 13:46 At the request of: LEXI HERNANDEZ DPRatna Procedure: XR foot LT min 3V [...] Jr., D.OClarisse 07/14/2024 1:46 PM Dictation Location: [place] [address] Electronically authenticated by: [id number] Y Date: 07/14/2024 13:46 Dictated By: Pete Jacobson M.D. Signed By: 07/14/24 1349 DD/ 1346 TD/TT: Technical Account Executive:SHIMAHRadiology, Radiologist, MD - 07/14/2024 The [place] [id number] XRay Report Signed Patient: REMI ZARCO MR#: [id number] : 1945 Acct:[id number] Age/Sex: 79 / M ADM Date: 07/14/24 Loc: RAD Attending Dr: Lexi Hernandez D.P.M. Ordering Physician: Lexi Hernandez D.P.M. Date of Service: 07/14/24 Procedure(s): XR ankle LT min 3V Accession Number(s): [id number] cc: Lexi Hernandez D.P.M.; Gil Gee M.D. The [place] [id number] Patient Name: REMI ZARCO MRN: [id number] date: 1945 Sex: M Assigned Patient Location: RAD Current Patient Location: RAD Accession/Order Number: [id number] Exam Date: 07/14/2024 13:44 Report Date: 07/14/2024 [...] Vazquez Jr.OClarisse 07/14/2024 1:46 PM Dictation Location: [place] [address] Electronically authenticated by: [id number] Y Date: 07/14/2024 13:46 Dictated By: Pete Jacobson M.D. Signed By: 07/14/24 1349 DD/ 1346 TD/TT: Technical Account Executive: STEPHEN Lazo FOOT LT MIN 3Von 19-78-[place] [address] XRay Report Signed Patient: REMI ZARCO MR#: [id number] : 1945 Acct:[id number] Age/Sex: 79 / M ADM Date: 07/14/24 Loc: RAD Attending Dr: Lexi Hernandez D.P.M. Ordering Physician: Lexi Hernandez D.P.M. Date of Service: 07/14/24 Procedure(s): XR foot LT min 3V Accession Number(s): [id number] cc: Lexi Hernandez D.P.M.; Gil Gee M.D. The [place] [id number] Patient Name: REMI ZARCO MRN: [id number] date: 1945 Sex: M Assigned Patient Location: RAD Current Patient Location: RAD Accession/Order Number: [id number] Exam Date: 07/14/2024 13:44 Report Date: 07/14/2024 [...] NOTED. Impression dictated by: Pete Jacobson Jr., MarycarmenOClarisse 07/14/2024 1:46 PM Dictation Location: [place] [address] Electronically authenticated by: [id number] Y Date: 07/14/2024 13:46 Dictated By: Pete Jacobson M.D. Signed By: 07/14/24 1349 DD/ 45 TD/TT: Technical Account Executive:TBHRadiology, Radiologist, MD - 07/14/2024 [place] [address] XRay Report Signed Patient: REMI ZARCO MR#: [id number] : 1945 Acct:[id number] Age/Sex: 79 / M ADM Date: 07/14/24 Loc: RAD Attending Dr: Lexi Hernandez D.P.M. Ordering Physician: Lexi Hernandez D.P.M. Date of Service: 07/14/24 Procedure(s): XR foot LT min 3V Accession Number(s): [id number] cc: Lexi Hernandez D.P.M.; Gil Gee M.D. [place] [id number] Patient Name: REMI ZARCO MRN: [id number] date: 1945 Sex: M Assigned Patient Location: RAD Current Patient Location: RAD Accession/Order Number: [id number] Exam Date: 07/14/2024 13:44 Report Date: 07/14/2024 [...] Jr., D.OClarisse 07/14/2024 1:46 PM Dictation Location: [place] [address] Electronically authenticated by: [id number] Y Date: 07/14/2024 13:46 Dictated By: Pete Jacobson M.D. Signed By: 07/14/24 1349 DD/ 134 TD/TT: Technical Account Executive: STEPHEN Tejeda 63-52-1994Meq[place] [address] Cardiac Rehab Report Signed Patient: REMI ZARCO MR#: [id number] : 1945 Acct:[id number] Age/Sex: 79 / M ADM Date: 06/16/24 Loc: CR Attending Dr: Non-Staff Physician Carol Ordering Physician: Gil Gee M.D. 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 Signed By: 06/19/24195806/19/241958 DD/ 112 TD/TT: Technical Account Executive:SHIMAHRadiology, Radiologist, - 06/19/2024 [place] [address] Cardiac Rehab Report Signed Patient: REMI ZARCO MR#: [id number] : 1945 Acct:[id number] Age/Sex: 79 / M ADM Date: 06/16/24 Loc: CR Attending Dr: Non-Staff Physician Carol Ordering Physician: Gil Gee M.D. 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 Signed By: 06/19/24195806/19/241958 DD/ 1120 TD/TT: Technical Account Executive: STEPHEN NavarroITPOrdered By: Radiologist Radiology on 69-31-2903[facility] Work Phone: ITPon 62-75-7282Xdtsswdty Study observation (narrative)STEPHEN HealthcarePROTIME AND INRon 66-50-2295MCK Coag (PPP) [Relative time]1.9 {INR}High0.9-1.2PMercy Health St. Anne HospitalComment on above:Performed By: #### PINR #### [facility] ([id number]) [address], [address] [place], [place] [address]TA Coag (PPP) [Time]22.1 sHigh9.8-13.2PMercy Health St. Anne Hospital Comment on above:Performed By: #### PINR #### [facility] ([id number]) [address], [address] [place], [place] [address]VCIgd 98-86-7548[place] [address] Cardiac Rehab Report Signed Patient: REMI ZARCO MR#: [id number] : 1945 Acct:[id number] Age/Sex: 78 / M ADM Date: 06/02/24 Loc: CR Attending Dr: Non-Staff Physician Carol Ordering Physician: Gil Gee M.D. 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 Signed By: 06/04/24 1429 06/04/24 142 DD/ TD/TT: Technical Account Executive:ANGLEadiology, Radiologist, - 06/04/2024 [place] [address] Cardiac Rehab Report Signed Patient: REMI ZARCO MR#: [id number] : 1945 Acct:[id number] Age/Sex: 78 / M ADM Date: 06/02/24 Loc: CR Attending Dr: Non-Staff Physician Carol Ordering Physician: Gil Gee M.D. 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 Signed By: 06/04/24142806/04/241428 DD/ 8 TD/TT: Technical Account Executive: STEPHEN NavarroITPOrdered By: Radiologist Radiology on 99-92-2614[facility] Work Phone: POCT Protime / INRon 09-94-5016XEG Coag (PPP) [Relative time]2.2 {INR}Abnormal0.8 - 1.2PPomerene HospitalInterpretation and review of laboratory resultsAbnormalLehigh Valley Hospital - Schuylkill East Norwegian StreetITPon 00-62-5531Upkrxznrg Study observation (narrative)STEPHEN HealthcarePOCT Protime / INRon 46-54-8796AFS Coag (PPP) [Relative time]1.9 {INR}Abnormal0.8 - 1.2PC[facility] SystemInterpretation and review of laboratory results AbnormalLehigh Valley Hospital - Schuylkill East Norwegian StreetBASIC METABOLIC PANLon 85-44-6664Pxvnm gap [Moles/Vol]10 mmol/LNormal5-15[facility] Comment on above:Performed By: #### FABIOLA, 20882-9 #### [facility] ([id number]) [address], [address] [place], [place] [address]Vyoggsb [Mass/Vol]9.7 mg/dLNormal8.5-10.5PMercy Health St. Anne HospitalComment on above:Performed By: #### FABIOLA, 06447-8 #### [facility] ([id number]) [address], [address] [place], [place] [address]Dkjkfxem [Moles/Vol]104 mmol/BOehnhc40-588ZdhXcwjiaMetroHealth Parma Medical CenterComment on above:Performed By: #### FABIOLA, 11623-5 #### [facility] ([id number]) [address], [address] [place], [place] [address]CB9 [Moles/Vol]27 mmol/QWrovof83-65KzbOgohtcMercy Health St. [facility] Hospital Comment on above:Performed By: #### FABIOLA, 64587-8 #### [facility] ([id number]) [address], [address] [place], [place] [address]Axowfuqexv [Mass/Vol]1.08 mg/dLNormal0.60-1.30[facility] Medical CenterComment on above:Result Comment: METHOD TRACEABLE TO IDMS STANDARD Performed By: #### FABIOLA, #### [facility] ([id number]) [address] [place], [place] [address]OKQ/1.73 sq M.predicted among non-blacks MDRD (S/P/Bld) [Vol rate/Area]70 mL/min/{1.73_m2}Normal>59ProChi St. Luke'S Health – Patients Medical CenterComment on above:Result Comment: Reported eGFR is based on the CKD-EPI 2020 equation that does not use a race coefficient.Performed By: #### FABIOLA, #### [facility] ([id number]) [address], [address] [place], [place] [address]Wcsqwwe [Mass/Vol]92 mg/kLNuchxj11-99KzwGspdpoMetroHealth [facility] Center Comment on above:Performed By: #### FABIOLA, #### [facility] ([id number]) [address], [address] [place], [place] [address]Rkrtoahrm [Moles/Vol]4.2 mmol/LNormal3.5-5.0[facility] CenterComment on above:Performed By: #### FABIOLA, 18663-2 #### [facility] ([id number]) [address], [address] [place], [place] [address]Yyalxv [Moles/Vol]141 mmol/BVfirfb953-045ZklKvysez Fremont HospitalComment on above:Performed By: #### FABIOLA, 79734-9 #### [facility] ([id number]) [address] [place], [place] [address]Vqyh nitrogen [Mass/Vol]12 mg/dLNormal5-27ProChi St. Luke'S Health – Patients Medical CenterComment on above:Performed By: #### FABIOLA, 11895-8 #### [facility] ([id number]) [address] [place], [place] [address]XLDSYBRNFhb 29-30-4428Fnljbpvth [Mass/Vol]2.0 mg/dLNormal1.8-2.6 [facility] CenterComment on above:Performed By: #### FABIOLA, 02009-3 #### [facility] ([id number]) [address] [place], [place] [address]YMUB Protime / INRon 46-89-8050SQS Coag (PPP) [Relative time]3.3 {INR}Abnormal0.8 - 1.2PC[facility] SystemInterpretation and review of laboratory resultsAbnormalLehigh Valley Hospital - Schuyl[facility] East Norwegian StreetPOCT Protime / INRon 56-53-6792IOH Coag (PPP) [Relative time]2.7 {INR}Abnormal0.8 - 1.2PC[facility] SystemInterpretation and review of laboratory results AbnormalWinnebago Mental Health Institute SystemBASIC METABOLIC PANLon 11-25-2105Eqbsd gap [Moles/Vol]5 mmol/LNormal5-15[facility] Comment on above:Performed By: #### CBC, PINR, 08378-6, CMP, 1988-5, HA1C, 06108-0 #### [facility] ([id number]) [address] [place], [place] [address]Czrtxoq [Mass/Vol]8.6 mg/dLNormal8.5-10.5PParkview HealthComment on above:Performed By: #### CBC, PINR, 13587-1, CMP, 1987-07, HA1C, 85513-4 #### [facility] ([id number]) [address] [place], [place] [address]Adzkfsaj [Moles/Vol]102 mmol/FJjpugf34-166FjoRpqjxf [place] HospitalComment on above:Performed By: #### CBC, PINR, 58260-3, CMP, 1987-07, HA1C, 31651-0 #### [facility] ([id number]) [address] [place], [place] [address]CT5 [Moles/Vol]29 mmol/LGnptec43-29TyjCthmib [facility] Comment on above:Performed By: #### CBC, PINR, 49958-6, CMP, 1987-07, HA1C, 32441-8 #### [facility] ([id number]) [address] [place], [place] [address]Hncsikscdi [Mass/Vol]1.10 mg/dLNormal0.60-1.30ProChildren'S Hospital Of ColumbusComment on above:Result Comment: METHOD TRACEABLE TO IDMS STANDARD Performed By: #### CBC, PINR, 83936-6, CMP, 1987-07, HA1C, 26701-0 #### [facility] ([id number]) [address] [place], [place] [address]DXA/1.73 sq M.predicted among non-blacks MDRD (S/P/Bld) [Vol rate/Area]69 mL/min/{1.73_m2}Normal>59ProChildren'S Hospital Of ColumbusComment on above: Result Comment: Reported eGFR is based on the CKD-EPI 2020 equation that does not use a race coefficient.Performed By: #### CBC, PINR, 90264-1, CMP, 1987-07, HA1C, 09877-3 #### [facility] ([id number]) [address] [place], [place] [address]Ewzslal [Mass/Vol]117 mg/dFJuap51-84LxgZjicfg [facility] Comment on above:Performed By: #### CBC, PINR, 63555-0, CMP, 1987-07, HA1C, 52340-9 #### [facility] ([id number]) [address] [place], [place] [address]Gukqhiwtd [Moles/Vol]4.0 mmol/LNormal3.5-5.0ProUniversity Hospitals Beach[facility] HospitalComment on above:Performed By: #### CBC, PINR, 32684-6, CMP, 1987-07, HA1C, 14189-1 #### [facility] ([id number]) [address] [place], [place] [address]Cipagy [Moles/Vol]136 mmol/QMnqzhw086-986VqrZsdzjw [place] HospitalComment on above:Performed By: #### CBC, PINR, 87924-0, CMP, 1987-07, HA1C, 79405-6 #### [facility] ([id number]) [address] [place], [place] [address]Jrvo nitrogen [Mass/Vol]27 mg/dLNormal5-27ProUniversity [facility] HospitalComment on above:Performed By: #### CBC, PINR, 85022-7, CMP, 1987-07, HA1C, 33225-6 #### [facility] ([id number]) [address] [place], [place] [address]LGJLXCPV BLOOD COUNTon 74-87-5758Lffppqbexiz distribution width (RBC) [Ratio]14.9 %Tyuvqr50.5-15.0ProUniversity [facility]als [facility] HospitalComment on above: Performed By: #### CBC, PINR, 20680-3, CMP, 1987-07, HA1C, 10544-8 #### [facility] ([id number]) [address] [place], [place] [address]Glqywbxnvs (Bld) [Volume fraction]24.8 %Loc62-09OymEjnelr Ramirez HospitalComment on above:Performed By: #### CBC, PINR, 28762-7, CMP, 1987-07, HA1C, 76408-3 #### [facility] ([id number]) [address] [place], [place] [address]Gkydvkfzwc (Bld) [Mass/Vol]8.4 g/dLLow13.0-17.0ProMedica Ramirez HospitalComment on above:Performed By: #### CBC, PINR, 67561-7, CMP, 1987-07, HA1C, 94199-7 #### [facility] ([id number]) [address] [place], [place] [address]EYX (RBC) [Entitic mass]30.4 hjBzjifi56-20ZgwPstvub Ramirez HospitalComment on above:Performed By: #### CBC, PINR, 64261-3, CMP, 1987-07, HA1C, 74295-4 #### [facility] ([id number]) [address] [place], [place] [address]AHMK (RBC) [Mass/Vol]34.0 g/tEOcusrp59-11FdnLzbacz Ramirez HospitalComment on above:Performed By: #### CBC, PINR, 86631-2, CMP, 1987-07, HA1C, 89545-6 #### [facility] ([id number]) [address] [place], [place] [address]SLM (RBC) [Entitic vol]89 zFYlxyqp54-323TszLwtspz Ramirez HospitalComment on above:Performed By: #### CBC, PINR, 12425-8, CMP, 1987-07, HA1C, 53712-7 #### [facility] ([id number]) [address] [place], [place] [address]Ndttedkj mean volume (Bld) [Entitic vol]8.8 fLNormal7-12 ProMuab hospitala [place] HospitalComment on above:Performed By: #### CBC, PINR, 55703-6, CMP, 1987-07, HA1C, 43728-1 #### [facility] ([id number]) [address] [place], [place] [address]Dtrqrrshg (Bld) [#/Vol]164 10*3/vKEfxadq379-822ZttXnydcn [place] HospitalComment on above:Performed By: #### CBC, PINR, 48026-2, CMP, 1987-07, HA1C, 47260-6 #### [facility] ([id number]) [address] [place], [place] [address]YKS COUNT2.78 X10E12/LLow4.10-5.70[facility] Comment on above:Performed By: #### CBC, PINR, 28875-7, CMP, 1987-07, HA1C, 03620-2 #### [facility] ([id number]) [address] [place], [place] [address]WDJ (Bld) [#/Vol]6.5 10*3/uLNormal4.0-11.0ProChildren'S Hospital Of ColumbusComment on above:Performed By: #### CBC, PINR, 69380-2, CMP, 1987-07, HA1C, 91658-6 #### [facility] ([id number]) [address] [place], [place] [address]Kpbejzq unfractionated Chromogenic method Qn (PPP)on 02-19-2024 ANTI XA UFH0.38 IU/mLNormal0.30-0.70ProChildren'S Hospital Of ColumbusComment on above: Result Comment: Optimal time for testing is 6 hrs post dosage This test is specific for monitoring patients on UFH, and is not recommended for use with other Anti-Xa medications.Performed By: #### CBC, PINR, 20360-6, GURJIT, 1987-07, HA1C, 41363-5 #### [facility] ([id number]) [address] [place], [place] [address]AOHJ XA UFH0.38 IU/mLNormal0.30-0.70[facility] Comment on above:Result Comment: Optimal time for testing is 6 hrs post dosage This test is specific for monitoring patients on UFH, and is not recommended for use with other Anti-Xa medications.Performed By: #### CBC, PINR, 48760-8, GURJIT, 1987-07, HA1C, 01080-1 #### [facility] ([id number]) [address] [place], [place] [address]SIMYQJM AND INRon 79-24-0194SSA Coag (PPP) [Relative time]1.2 {INR}High0.8-1.1PParkview HealthComment on above:Performed By: #### CBC, PINR, 50180-6, GURJIT, 1987-07, HA1C, 50520-5 #### [facility] ([id number]) [address] [place], [place] [address]NL Coag (PPP) [Time]13.9 sHigh9.8-13.2PParkview Health Comment on above:Performed By: #### CBC, PINR, 33891-3, GURJIT, 1987-07, HA1C, 93915-8 #### [facility] ([id number]) [address] [place], [place] [address]KVBDM METABOLIC PANLon 36-67-6489Islgp gap [Moles/Vol]6 mmol/L Normal5-15ProChildren'S Hospital Of ColumbusComment on above:Performed By: #### CBC, PINR, 77164-5, GURJIT, 1987-07, HA1C, 38334-5 #### [facility] ([id number]) [address] [place], [place] [address]Vxepobr [Mass/Vol]8.7 mg/dLNormal8.5-10.5PParkview HealthComment on above:Performed By: #### CBC, PINR, 76729-8, CMP, 1987-07, HA1C, 21411-6 #### [facility] ([id number]) [address] [place], [place] [address]Akgiudni [Moles/Vol]103 mmol/ROaljfb23-949KulQodqgc [place] HospitalComment on above:Performed By: #### CBC, PINR, 68000-9, CMP, 1987-07, HA1C, 63670-6 #### [facility] ([id number]) [address] [place], [place] [address]EM2 [Moles/Vol]28 mmol/QHszvfd28-86DycPhpxis [facility] Comment on above:Performed By: #### CBC, PINR, 19032-3, CMP, 1987-07, HA1C, 57206-6 #### [facility] ([id number]) [address] [place], [place] [address]Fbiwxxoctm [Mass/Vol]1.21 mg/dLNormal0.60-1.30ProChildren'S Hospital Of ColumbusComment on above:Result Comment: METHOD TRACEABLE TO IDMS STANDARD Performed By: #### CBC, PINR, 71665-5, CMP, 1987-07, HA1C, 02916-0 #### [facility] ([id number]) [address] [place], [place] [address]MJF/1.73 sq M.predicted among non-blacks MDRD (S/P/Bld) [Vol rate/Area]61 mL/min/{1.73_m2}Normal>59ProChildren'S Hospital Of ColumbusComment on above: Result Comment: Reported eGFR is based on the CKD-EPI 2020 equation that does not use a race coefficient.Performed By: #### CBC, PINR, 93325-1, CMP, 1987-07, HA1C, 08705-0 #### [facility] ([id number]) [address] [place], [place] [address]Wzidifa [Mass/Vol]112 mg/eUSvdt42-53VhvImayxlChildren'S Hospital Of Columbus Comment on above:Performed By: #### CBC, PINR, 78794-3, CMP, 1987-07, HA1C, 18293-4 #### [facility] ([id number]) [address] [place], [place] [address]Amzoyekvx [Moles/Vol]4.2 mmol/LNormal3.5-5.0ProMansfield Hospitalca [place] HospitalComment on above:Performed By: #### CBC, PINR, 39274-8, CMP, 1987-07, HA1C, 14374-9 #### [facility] ([id number]) [address] [place], [place] [address]Iuhbhb [Moles/Vol]137 mmol/VAwmqpb348-575HvdOgnfzm [place] HospitalComment on above:Performed By: #### CBC, PINR, 80177-3, CMP, 1987-07, HA1C, 92707-3 #### [facility] ([id number]) [address] [place], [place] [address]Utvz nitrogen [Mass/Vol]28 mg/dLHigh5-27ProUniversity [facility] HospitalComment on above:Performed By: #### CBC, PINR, 19709-1, CMP, 1987-07, HA1C, 56954-1 #### [facility] ([id number]) [address] [place], [place] [address]XVXXVRYL BLOOD COUNTon 14-07-5579Uiffuvvbosf distribution width (RBC) [Ratio]14.9 %Ybuitv08.5-15.0ProUniversity [facility]als [facility] HospitalComment on above: Performed By: #### CBC, PINR, 73282-5, CMP, 1987-07, HA1C, 60074-5 #### [facility] ([id number]) [address] [place], [place] [address]Kzultmhnxl (Bld) [Volume fraction]25.6 %Kta55-38LwjAyzevk Ramirez HospitalComment on above:Performed By: #### CBC, PINR, 01651-0, CMP, 1987-07, HA1C, 35942-9 #### [facility] ([id number]) [address], [address] [place], [place] [address]Jxketfcupm (Bld) [Mass/Vol]8.7 g/dLLow13.0-17.0ProMedica Ramirez HospitalComment on above:Performed By: #### CBC, PINR, 19862-7, CMP, 1987-07, HA1C, 22436-6 #### [facility] ([id number]) [address], [address] [place], [place] [address]SWT (RBC) [Entitic mass]30.5 yhOqnqrl27-42MehGpsfyv Ramirez HospitalComment on above:Performed By: #### CBC, PINR, 15233-3, CMP, 1987-07, HA1C, 37143-4 #### [facility] ([id number]) [address], [address] [place], [place] [address]YWJF (RBC) [Mass/Vol]34.2 g/tRRsrfom23-47KjiLbvhir Ramirez HospitalComment on above:Performed By: #### CBC, PINR, 09859-0, CMP, 1987-07, HA1C, 82717-6 #### [facility] ([id number]) [address], [address] [place], [place] [address]YBL (RBC) [Entitic vol]89 xGJokdea28-200WjlUlgkpb Ramirez HospitalComment on above:Performed By: #### CBC, PINR, 51325-4, CMP, 1987-07, HA1C, 98697-0 #### [facility] ([id number]) [address], [address] [place], [place] [address]Ewbszzbf mean volume (Bld) [Entitic vol]8.8 fLNormal7-12 [facility] HospitalComment on above:Performed By: #### CBC, PINR, 36079-3, CMP, 1987-07, HA1C, 50975-0 #### [facility] ([id number]) [address], [address] [place], [place] [address]Iyghffnfk (Bld) [#/Vol]142 10*3/pMWfe867-200SwiZhhvthChildren'S Hospital Of ColumbusComment on above:Performed By: #### CBC, PINR, 75915-3, CMP, 1987-07, HA1C, 19402-5 #### [facility] ([id number]) [address], [address] [place], [place] [address]ATJ COUNT2.86 X10E12/LLow4.10-5.70[facility] Comment on above:Performed By: #### CBC, PINR, 03553-6, CMP, 1987-07, HA1C, 91325-1 #### [facility] ([id number]) [address], [address] [place], [place] [address]DGM (Bld) [#/Vol]8.0 10*3/uLNormal4.0-11.0[facility] HospitalComment on above:Performed By: #### CBC, PINR, 61802-4, CMP, 1987-07, HA1C, 54209-3 #### [facility] ([id number]) [address], [address] [place], [place] [address]Ecocvzd unfractionated Chromogenic method Qn (PPP)on 02-18-2024 ANTI XA UFH0.27 IU/mLLow0.30-0.70[facility] HospitalComment on above: Result Comment: Optimal time for testing is 6 hrs post dosage This test is specific for monitoring patients on UFH, and is not recommended for use with other Anti-Xa medications.Performed By: #### CBC, PINR, 89152-6, CMP, 1987-07, HA1C, 80816-8 #### [facility] ([id number]) [address], [address] [place] [address]CEQOLSN AND INRon 52-14-7676UDW Coag (PPP) [Relative time]1.2 {INR}High0.8-1.1PParkview HealthComment on above:Performed By: #### CBC, PINR, 04133-0, CMP, 1987-07, HA1C, 62200-9 #### [facility] ([id number]) [address] [place], [place] [address]DA Coag (PPP) [Time]14.2 sHigh9.8-13.2PParkview Health Comment on above:Performed By: #### CBC, PINR, 28167-0, CMP, 1987-07, HA1C, 42874-5 #### [facility] ([id number]) [address], [address] [place], [place] [address]iFYQ Coag (PPP) [Time]on 08-34-3702xUFO Coag (Bld) [Time]29 s Nxvpbr92-96SqnIzrcaqChildren'S Hospital Of ColumbusComment on above:Performed By: #### CBC, PINR, 31887-9, CMP, 1987-07, HA1C, 85068-4 #### [facility] ([id number]) [address], [address] [place], [place] [address]CIKYA METABOLIC PANLon 85-05-0718Tklpv gap [Moles/Vol]7 mmol/L Normal5-15ProChildren'S Hospital Of ColumbusComment on above:Performed By: #### CBC, PINR, 99693-2, CMP, 1987-07, HA1C, 72191-6 #### [facility] ([id number]) [address], [address] [place], [place] [address]Grtzwyq [Mass/Vol]9.0 mg/dLNormal8.5-10.5PParkview HealthComment on above:Performed By: #### CBC, PINR, 12028-3, CMP, 1987-07, HA1C, 03902-0 #### [facility] ([id number]) [address], [address] [place], [place] [address]Jjnplkzs [Moles/Vol]103 mmol/AEccqre76-851GimRgfpqk [place] HospitalComment on above:Performed By: #### CBC, PINR, 14348-2, CMP, 1987-07, HA1C, 47644-2 #### [facility] ([id number]) [address], [address] [place], [place] [address]EZ4 [Moles/Vol]27 mmol/XQnhaeh92-04ZxmNcgxkkParkview Health Comment on above:Performed By: #### ALPHONSE, PINR, 21352-0, CMP, 1987-07, HA1C, 10940-3 #### [facility] ([id number]) [address], [address] [place], [place] [address]Njwfsupwkv [Mass/Vol]1.41 mg/dLHigh0.60-1.30ProChildren'S Hospital Of ColumbusComment on above:Result Comment: METHOD TRACEABLE TO IDMS STANDARD Performed By: #### CBC, PINR, 02069-4, CMP, 1987-07, HA1C, 58505-8 #### [facility] ([id number]) [address], [address] [place], [place] [address]XFF/1.73 sq M.predicted among non-blacks MDRD (S/P/Bld) [Vol rate/Area]51 mL/min/{1.73_m2}Low>59ProChildren'S Hospital Of ColumbusComment on above: Result Comment: Reported eGFR is based on the CKD-EPI 2020 equation that does not use a race coefficient.Performed By: #### CBC, PINR, 62277-3, CMP, 1987-07, HA1C, 38767-5 #### [facility] ([id number]) [address], [address] [place], [place] [address]Hiwqiie [Mass/Vol]119 mg/dVPvpz62-21KscXltstm [facility] Comment on above:Performed By: #### CBC, PINR, 32431-0, CMP, 1987-07, HA1C, 80307-7 #### [facility] ([id number]) [address], [address] [place], [place] [address]Tlgonluve [Moles/Vol]4.0 mmol/LNormal3.5-5.0ProUniversity Hospitals [facility] HospitalComment on above:Performed By: #### CBC, PINR, 07947-8, CMP, 1987-07, HA1C, 23085-9 #### [facility] ([id number]) [address] [place], [place] [address]Zgyftc [Moles/Vol]137 mmol/MKqdeqb609-012AmrLxhngj [place] HospitalComment on above:Performed By: #### CBC, PINR, 07037-6, CMP, 1987-07, HA1C, 06846-8 #### [facility] ([id number]) [address], [address] [place], [place] [address]Wdvi nitrogen [Mass/Vol]34 mg/dLHigh5-27ProUniversity [facility]als [facility] HospitalComment on above:Performed By: #### CBC, PINR, 07695-2, CMP, 1987-07, HA1C, 47605-8 #### [facility] ([id number]) [address] [address] [address] [place], [place] [address]MXGYJKRK BLOOD COUNTon 38-80-6149Jqqmiinslcp distribution width (RBC) [Ratio]14.9 %Ujhgli70.5-15.0ProChildren'S Hospital Of ColumbusComment on above: Performed By: #### CBC, PINR, 11821-7, CMP, 1987-07, HA1C, 07028-9 #### [facility] ([id number]) [address], [address] [place], [place] [address]Wydgzqvjmn (Bld) [Volume fraction]27.2 %Dhy66-43IacUdbkyv [place] HospitalComment on above:Performed By: #### CBC, PINR, 63705-3, CMP, 1987-07, HA1C, 46412-6 #### [facility] ([id number]) [address], [address] [place], [place] [address]Cgifxlpgcg (Bld) [Mass/Vol]9.2 g/dLLow13.0-17.0ProMansfield Hospitalca [place] HospitalComment on above:Performed By: #### CBC, PINR, 69862-3, CMP, 1987-07, HA1C, 86341-9 #### [facility] ([id number]) [address], [address] [place], [place] [address]XUN (RBC) [Entitic mass]30.4 tlHhksmw62-03WdiPwwndv [place] HospitalComment on above:Performed By: #### CBC, PINR, 82620-7, CMP, 1987-07, HA1C, 71486-6 #### [facility] ([id number]) [address], [address] [place], [place] [address]PJJG (RBC) [Mass/Vol]33.9 g/mEQofjwc14-98EilHcvvcb [place] HospitalComment on above:Performed By: #### CBC, PINR, 27092-6, CMP, 1987-07, HA1C, 45368-8 #### [facility] ([id number]) [address], [address] [place], [place] [address]IJV (RBC) [Entitic vol]90 nGVfrzbj93-898XhrKrokup [place] HospitalComment on above:Performed By: #### CBC, PINR, 89665-4, CMP, 1987-07, HA1C, 28138-0 #### [facility] ([id number]) [address], [address] [place], [place] [address]Ktaafzmd mean volume (Bld) [Entitic vol]9.1 fLNormal7-12 [facility] [place] HospitalComment on above:Performed By: #### CBC, PINR, 31851-3, CMP, 1987-07, HA1C, 61268-3 #### [facility] ([id number]) [address], [address] [place], [place] [address]Jspwwbdnr (Bld) [#/Vol]137 10*3/vCXwp532-511VywMypxfa [place] HospitalComment on above:Performed By: #### CBC, PINR, 55052-7, CMP, 1987-07, HA1C, 13364-6 #### [facility] ([id number]) [address], [address] [place], [place] [address]ZES COUNT3.03 X10E12/LLow4.10-5.70[facility] Comment on above:Performed By: #### CBC, PINR, 36780-6, CMP, 1987-07, HA1C, 48939-0 #### [facility] ([id number]) [address], [address] [place], [place] [address]RGA (Bld) [#/Vol]11.4 10*3/uLHigh4.0-11.0[facility] HospitalComment on above:Performed By: #### CBC, PINR, 17403-8, CMP, 1987-07, HA1C, 96989-7 #### [facility] ([id number]) [address], [address] [place], [place] [address]Hvnnuke Glucometer (BldC) [Mass/Vol]on 85-53-2624Rllyzsu [Mass/Vol]114 mg/dOXxkp50-07FrvAllgka [place] HospitalPROTIME AND INRon 88-41-1994PSB Coag (PPP) [Relative time]1.1 {INR}Normal0.8-1.1[facility]ica [place] HospitalComment on above:Performed By: #### CBC, PINR, 14692-5, CMP, 1987-07, HA1C, 24174-5 #### [facility] ([id number]) [address], [address] [place], [place] [address]BX Coag (PPP) [Time]13.3 sHigh9.8-13.2PParkview Health Comment on above:Performed By: #### ALPHONSE, PINR, 98754-0, CMP, 1987-07, HA1C, 92924-0 #### [facility] ([id number]) [address], [address] [place], [place] [address]LH CHEST 1 VWon 11-79-2238JG CHEST 1 VWXR CHEST 1 VW HISTORY: Congestion, atelectasis COMPARISON: [...] by Herbie Wells MD on 02/17/2024 8:10 AMNormalProChildren'S Hospital Of ColumbusBASIC METABOLIC PANLon 99-47-8467Kjmxb gap [Moles/Vol]11 mmol/LNormal 5-15Pro[facility] HospitalComment on above:Performed By: #### ALPHONSE, PINR, 05927-3, CMP, 1987-07, HA, 61799-4 #### [facility] ([id number]) [address], [address] [place], [place] [address]Xgoteeq [Mass/Vol]9.1 mg/dLNormal8.5-10.5PParkview HealthComment on above:Performed By: #### CBC, PINR, 70559-6, CMP, 1987-07, HA1C, 56577-4 #### [facility] ([id number]) [address], [address] [place], [place] [address]Ztbssggw [Moles/Vol]107 mmol/UCayblx88-045IktQberqh [place] HospitalComment on above:Performed By: #### CBC, PINR, 41138-5, CMP, 1987-07, HA1C, 47857-4 #### [facility] ([id number]) [address], [address] [place], [place] [address]HO2 [Moles/Vol]22 mmol/NNeofkq30-39EqcEswuqkParkview Health Comment on above:Performed By: #### CBC, PINR, 67287-1, CMP, 1987-07, HA1C, 10285-4 #### [facility] ([id number]) [address], [address] [place], [place] [address]Owefhoovvw [Mass/Vol]1.27 mg/dLNormal0.60-1.30[facility] HospitalComment on above:Result Comment: METHOD TRACEABLE TO IDMS STANDARD Performed By: #### CBC, PINR, 24725-3, CMP, 1987-07, HA1C, 66693-2 #### [facility] ([id number]) [address], [address] [place], [place] [address]RKB/1.73 sq M.predicted among non-blacks MDRD (S/P/Bld) [Vol rate/Area]58 mL/min/{1.73_m2}Low>59ProChildren'S Hospital Of ColumbusComment on above: Result Comment: Reported eGFR is based on the CKD-EPI 2020 equation that does not use a race coefficient.Performed By: #### CBC, PINR, 68440-7, CMP, 1987-07, HA1C, 61700-8 #### [facility] ([id number]) [address], [address] [place], [place] [address]Wicipwr [Mass/Vol]129 mg/xWIsqu08-60LhlLmdrceCleveland Clinic Medina Hospital Comment on above:Performed By: #### CBC, PINR, 30663-8, CMP, 1987-07, HA1C, 05374-4 #### [facility] ([id number]) [address], [address] [place], [place] [address]Sjdvdjwzn [Moles/Vol]4.3 mmol/LNormal3.5-5.0ProMedica Ramirez HospitalComment on above:Performed By: #### CBC, PINR, 47531-4, CMP, 1987-07, HA1C, 20616-5 #### [facility] ([id number]) [address], [address] [place], [place] [address]Eitdrp [Moles/Vol]140 mmol/FTxdbvy568-286OdsAsxeze Ramirez HospitalComment on above:Performed By: #### CBC, PINR, 22256-6, CMP, 1987-07, HA1C, 70357-0 #### [facility] ([id number]) [address] [place], [place] [address]Sfxt nitrogen [Mass/Vol]25 mg/dLNormal5-27Pro[facility] Ramirez HospitalComment on above:Performed By: #### CBC, PINR, 57292-7, CMP, 1987-07, HA1C, 87446-4 #### [facility] ([id number]) [address] [address]ZJFTDHSA BLOOD COUNTon 37-05-8403Lzybjmpffuv distribution width (RBC) [Ratio]14.4 %Vraapn23.5-15.0ProMedica Ramirez HospitalComment on above: Performed By: #### CBC, PINR, 76554-7, CMP, 1987-07, HA1C, 61714-8 #### [facility] ([id number]) [address] [place], [place] [address]Cfzxiehwsy (Bld) [Volume fraction]30.2 %Wpc54-16MggMhskuf Ramirez HospitalComment on above:Performed By: #### CBC, PINR, 47378-3, CMP, 1987-07, HA1C, 50467-0 #### [facility] ([id number]) [address], [address] [place], [place] [address]Igkmfdxzvk (Bld) [Mass/Vol]10.3 g/dLLow13.0-17.0ProMedica Ramirez HospitalComment on above:Performed By: #### CBC, PINR, 11792-7, CMP, 1987-07, HA1C, 86077-3 #### [facility] ([id number]) [address], [address] [place], [place] [address]DIC (RBC) [Entitic mass]30.6 wuRagrfe96-72MceUzmwjf Ramirez HospitalComment on above:Performed By: #### CBC, PINR, 88141-0, CMP, 1987-07, HA1C, 05629-7 #### [facility] ([id number]) [address], [address] [place], [place] [address]YIJQ (RBC) [Mass/Vol]34.2 g/hRSiserw69-67CssUdsjph Ramirez HospitalComment on above:Performed By: #### CBC, PINR, 73692-6, CMP, 1987-07, HA1C, 87299-3 #### [facility] ([id number]) [address] [place], [place] [address]YIW (RBC) [Entitic vol]89 lIEdnrnw25-572UptMopvdo Ramirez HospitalComment on above:Performed By: #### CBC, PINR, 71711-5, CMP, 1987-07, HA1C, 99620-9 #### [facility] ([id number]) [address] [place], [place] [address]Eqfffoso mean volume (Bld) [Entitic vol]9.0 fLNormal7-12 [facility] HospitalComment on above:Performed By: #### CBC, PINR, 76156-8, CMP, 1987-07, HA1C, 13216-9 #### [facility] ([id number]) [address], [address] [place], [place] [address]Npzincrlf (Bld) [#/Vol]163 10*3/eBHncvwz689-546CviPzphrq [place] HospitalComment on above:Performed By: #### CBC, PINR, 17812-6, CMP, 1987-07, HA1C, 77667-5 #### [facility] ([id number]) [address], [address] [place], [place] [address]QXM COUNT3.38 X10E12/LLow4.10-5.70Pro[facility] Hospital Comment on above:Performed By: #### CBC, PINR, 34124-0, CMP, 1987-07, HA1C, 91399-1 #### [facility] ([id number]) [address] [address], [address] [place], [place] [address]SFG (Bld) [#/Vol]12.3 10*3/uLHigh4.0-11.0ProChildren'S Hospital Of ColumbusComment on above:Performed By: #### CBC, PINR, 23720-7, CMP, 1987-07, HA1C, 42058-6 #### [facility] ([id number]) [address] [place], [place] [address]Snbozai.ionized (Bld) [Mass/Vol]on 48-43-7375HQHWWOC CALCIUM4.9 mg/dLNormal4.5-5.3[facility] [place] HospitalComment on above:Performed By: #### CBC, PINR, 61752-0, CMP, 1987-07, HA, 10352-1 #### [facility] ([id number]) [address] [place], [place] [address]Bkibrpm Glucometer (BldC) [Mass/Vol]on 85-32-5754Uqxeicl [Mass/Vol]194 mg/pHHito54-29KmyLgnsbh [facility] HospitalGlucose [Mass/Vol]123 mg/dL Qwdr23-48DfaEceyde [facility] HospitalGlucose [Mass/Vol]115 mg/gEBxeu81-68YoqMkiyzu [place] HospitalGlucose [Mass/Vol]132 mg/fZRpkh01-05DnePncmwbChildren'S Hospital Of Columbus Glucose [Mass/Vol]132 mg/aEGsxg44-99EgpBtdthzChildren'S Hospital Of ColumbusMagnesium Ionized ISE (Bld) [Moles/Vol]on 45-24-9924Rxeqjtign [Moles/Vol]0.61 mmol/LNormal 0.45-0.74ProChildren'S Hospital Of ColumbusComment on above:Result Comment: NEW REFERENCE RANGEPerformed By: #### CBC, PINR, 69190-8, CMP, 1987-07, HA1C, 62571-4 #### [facility] ([id number]) [address] [place], [place] [address]FSWLHPYPUTjk 18-79-3059Zufoynumx [Mass/Vol]4.9 mg/dLNormal 2.4-4.9ProChildren'S Hospital Of ColumbusComment on above:Performed By: #### CBC, PINR, 92072-9, CMP, 1987-07, HA1C, 52339-9 #### [facility] ([id number]) [address] [place], [place] [address]HURNOOL AND INRon 42-61-6103CBC Coag (PPP) [Relative time]1.1 {INR}Normal0.8-1.1PParkview HealthComment on above:Performed By: #### CBC, PINR, 87426-3, CMP, 1987-07, HA1C, 33570-3 #### [facility] ([id number]) [address] [place], [place] [address]XE Coag (PPP) [Time]12.9 sNormal9.8-13.2PSelect Medical TriHealth Rehabilitation Hospital HospitalComment on above:Performed By: #### CBC, PINR, 39597-0, CMP, 1987-07, HA1C, 53270-7 #### [facility] ([id number]) [address] [place], [place] [address]QG CHEST 1 VWon 27-89-7318MO CHEST 1 VWXR CHEST 1 VW Clinical history: Heart surgery [...] by Mc Denson MD on 02/16/2024 6:32 AMNormalCleveland Clinic Medina Hospital ABG RAPID K GLU HHon 26-16-1308GWEKH'S TESTNormalCleveland Clinic Medina Hospital Comment on above:Performed By: #### CBC, PINR, 19127-0, CMP, 1987-07, HA1C, 41040-2 #### [facility] ([id number]) [address] [place], [place] [address]ZRQC,DEFICIT1.3 MMOL/LNormal0.0-2.0[facility] Comment on above:Performed By: #### CBC, PINR, 77832-0, CMP, 1987-07, HA1C, 05968-8 #### [facility] ([id number]) [address] [place], [place] [address]Emwf bfnxagrrsbu17.6 [degF]Pcajvf20.0[facility] Comment on above:Performed By: #### CBC, PINR, 22552-8, CMP, 1987-07, HA1C, 42001-4 #### [facility] ([id number]) [address] [place], [place] [address]Gooynfx [Mass/Vol]134 mg/yYErqw51-11OawAqtaorCleveland Clinic Medina Hospital Comment on above:Performed By: #### CBC, PINR, 63632-9, CMP, 1987-07, HA1C, 98712-3 #### [facility] ([id number]) [address] [place], [place] [address]VZQ6 (Bld) [Moles/Vol]23.9 mmol/HIbswxx13-42TepUmbihy Ramirez HospitalComment on above:Performed By: #### CBC, PINR, 71838-2, CMP, 1987-07, HA1C, 75331-4 #### [facility] ([id number]) [address] [place], [place] [address]Iefhnaovid (Bld) [Volume fraction]29 %Xhc00-85NmjXkfooh Ramirez HospitalComment on above:Performed By: #### CBC, PINR, 59759-1, CMP, 1987-07, HA1C, 28442-2 #### [facility] ([id number]) [address] [place], [place] [address]Gffsgrxnzx (Bld) [Mass/Vol]9.3 g/dLLow13.0-17.0ProMedica Ramirez HospitalComment on above:Performed By: #### CBC, PINR, 35885-5, CMP, 1987-07, HA1C, 14822-8 #### [facility] ([id number]) [address] [place], [place] [address]AAMD. O2 CONC.100 %NormalProMedica [place] HospitalComment on above:Performed By: #### CBC, PINR, 85048-5, CMP, 1987-07, HA1C, 92343-4 #### [facility] ([id number]) [address] [place], [place] [address]Hwdzuo (Bld) [Partial pressure]299 mm[Hg]Iupg05-037XlfJkgsgp Ramirez HospitalComment on above:Performed By: #### CBC, PINR, 90752-8, CMP, 1987-07, HA1C, 42195-7 #### [facility] ([id number]) [address] [place], [place] [address]Grhglo saturation in Mgpue470.2 %Normal>90ProMedica Ramirez HospitalComment on above:Performed By: #### CBC, PINR, 35731-8, CMP, 1987-07, HA1C, 37937-3 #### [facility] ([id number]) [address] [place], [place] [address]TGV323.0 MLQXRcybqk91-15KwwLviswo [place] HospitalComment on above:Performed By: #### CBC, PINR, 37840-4, CMP, 1987-07, HA1C, 03329-0 #### [facility] ([id number]) [address] [place], [place] [address]jI (Bld)7.374 [pH]Normal7.350-7.450[facility] Comment on above:Performed By: #### ALPHONSE, PINR, 24259-8, CMP, 1987-07, HA1C, 24369-7 #### [facility] ([id number]) [address] [place], [place] [address]Swizeloyh [Moles/Vol]4.7 mmol/LNormal3.5-5.0[facility] [place] HospitalComment on above:Performed By: #### ALPHONSE, PINR, 82158-9, CMP, 1987-07, HA1C, 07137-6 #### [facility] ([id number]) [address] [place], [place] [address]YAMQLU SITEALINENormalProMedica [place] HospitalComment on above: Performed By: #### CBC, PINR, 51972-8, CMP, 1987-07, HA1C, 59804-8 #### [facility] ([id number]) [address] [place], [place] [address]ROZTHS TYPEArterialNormalProMedica [place] HospitalComment on above:Performed By: #### CBC, PINR, 50845-2, CMP, 1987-07, HA1C, 64875-8 #### [facility] ([id number]) [address] [place], [place] [address]HRRIF'S TESTNormalProMedica [place] HospitalComment on above: Performed By: #### HRTN #### [facility] ([id number]) [address] [place], [place] [address]SQFD,DEFICIT0.3 MMOL/LNormal0.0-2.0[facility] Comment on above:Performed By: #### HRTN #### [facility] ([id number]) [address] [place], [place] [address]Xifu chuqkeybsve80.6 [degF]Tcncra39.0[facility] Comment on above:Performed By: #### HRTN #### [facility] ([address] [place] [address]) [address] [place], [place] [address]Qlcrbtt [Mass/Vol]126 mg/zRCbow99-83AqrWfzvxyCleveland Clinic [facility] Comment on above:Performed By: #### HRTN #### [facility] ([address] [place] [address]) [address] [place], [place] [address]RRY3 (Bld) [Moles/Vol]24.1 mmol/GTiohup49-15RgjKzbqvv [place] HospitalComment on above:Performed By: #### HRTN #### [facility] ([address] [place] [address]) [address] [place], [place] [address]Cdalyhkyky (Bld) [Volume fraction]28 %Khe65-41EdtXfuubv [place] HospitalComment on above:Performed By: #### HRTN #### [facility] ([id number]) [address] [place], [place] [address]Guzihrgpzq (Bld) [Mass/Vol]9.2 g/dLLow13.0-17.0ProUniversity [facility]als [facility] HospitalComment on above:Performed By: #### HRTN #### [facility] ([id number]) [address] [place], [place] [address]MURE. O2 CONC.100 %NormalProUniversity Hospitals Beach[facility] HospitalComment on above:Performed By: #### HRTN #### [facility] ([id number]) [address] [place], [place] [address]Ydkjea (Bld) [Partial pressure]370 mm[Hg]Kqru86-871LvuGlotar [place] HospitalComment on above:Performed By: #### HRTN #### [facility] ([id number]) [address] [place], [place] [address]Fgxvnl saturation in Ccocd440.3 %Normal>90Pro[facility]ica [place] HospitalComment on above:Performed By: #### HRTN #### [facility] ([id number]) [address] [place], [place] [address]MHI618.4 BLRFAehphb44-64YcsBlyjgk [place] HospitalComment on above:Performed By: #### HRTN #### [facility] ([id number]) [address] [place], [place] [address]cG (Bld)7.428 [pH]Normal7.350-7.450ProMansfield Hospitalca [place] [facility] Comment on above:Performed By: #### HRTN #### [facility] ([id number]) [address] [place], [place] [address]Mhxgrftrn [Moles/Vol]4.6 mmol/LNormal3.5-5.0ProMansfield Hospitalca [place] HospitalComment on above:Performed By: #### HRTN #### [facility] ([id number]) [address] [place], [place] [address]TGIXIF SITEALINENormalProMedica [place] HospitalComment on above: Performed By: #### HRTN #### [facility] ([id number]) [address] [place], [place] [address]NPULYP TYPEArterialNormalProMedica [place] HospitalComment on above:Performed By: #### HRTN #### [facility] ([id number]) [address] [place], [place] [address]NEFHJQDW BLOOD GASon 73-33-0821CVSAC' TESTNormalProChildren'S Hospital Of ColumbusComment on above:Performed By: #### CBC, PINR, 79342-6, CMP, 1987-07, HA1C, 42673-1 #### [facility] ([id number]) [address], [address] [place], [place] [address]THIJ,DEFICIT2.4 MMOL/LHigh0.0-2.0[facility] Comment on above:Performed By: #### CBC, PINR, 31713-7, CMP, 1987-07, HA1C, 09859-8 #### [facility] ([id number]) [address] [place], [place] [address]Vvcf bvodiwyikcx10.6 [degF]Aqvxyf10.0[facility] Comment on above:Performed By: #### CBC, PINR, 07619-5, CMP, 1987-07, HA1C, 96956-0 #### [facility] ([id number]) [address] [place], [place] [address]SHP4 (Bld) [Moles/Vol]22.4 mmol/CKnizqn73-61LooDykjutChildren'S Hospital Of ColumbusComment on above:Performed By: #### CBC, PINR, 57170-5, CMP, 1987-07, HA1C, 33760-0 #### [facility] ([id number]) [address] [place], [place] [address]RGPN. O2 CONC.100 %NormalProChildren'S Hospital Of ColumbusComment on above:Performed By: #### CBC, PINR, 19427-5, CMP, 1987-07, HA1C, 14095-6 #### [facility] ([id number]) [address] [place], [place] [address]Rwibqm (Bld) [Partial pressure]396 mm[Hg]Xeyq58-366JncZckozn [place] HospitalComment on above:Performed By: #### CBC, PINR, 06794-6, CMP, 1987-07, HA1C, 29802-8 #### [facility] ([id number]) [address] [place], [place] [address]Smsaii saturation in Kbmub010.6 %Normal>90ProUniversity Hospitals [facility] HospitalComment on above:Performed By: #### CBC, PINR, 86223-8, CMP, 1987-07, HA1C, 36046-3 #### [facility] ([id number]) [address], [address] [place], [place] [address]FSL948.2 MURAIjpxkj44-98ZdiGpgykv [place] HospitalComment on above:Performed By: #### CBC, PINR, 42284-7, CMP, 1987-07, HA1C, 64163-1 #### [facility] ([id number]) [address], [address] [place], [place] [address]hN (Bld)7.400 [pH]Normal7.350-7.450Pro[facility] Comment on above:Performed By: #### CBC, PINR, 10083-6, CMP, 1987-07, HA1C, 90151-4 #### [facility] ([id number]) [address], [address] [place], [place] [address]KQISVP SITEALINENormalProMansfield Hospitalca [place] HospitalComment on above: Performed By: #### CBC, PINR, 18203-2, CMP, 1987-07, HA1C, 99150-3 #### [facility] ([id number]) [address], [address] [place], [place] [address]MANDRB TYPEArterialNormalProUniversity Hospitals [facility] HospitalComment on above:Performed By: #### CBC, PINR, 06178-8, CMP, 1987-07, HA1C, 68048-2 #### [facility] ([id number]) [address], [address] [place], [place] [address]FUOFU UREA NITROGENon 46-03-9491Bawl nitrogen [Mass/Vol]15 mg/dL Normal5-27Pro[facility] HospitalComment on above:Performed By: #### CBC, PINR, 57914-2, CMP, 1987-07, HA1C, 85299-8 #### [facility] ([id number]) [address], [address] [place], [place] [address]Gdxe nitrogen [Mass/Vol]19 mg/dLNormal5-27Pro[facility] HospitalComment on above:Performed By: #### CBC, PINR, 04090-1, CMP, 1987-07, HA1C, 99224-5 #### [facility] ([id number]) [address] [place], [place] [address]GOKZQCNZHEcw 30-60-9200Zhfoawxymx [Mass/Vol]1.28 mg/dLNormal 0.60-1.30ProUniversity [facility] HospitalComment on above:Result Comment: METHOD TRACEABLE TO IDMS STANDARDPerformed By: #### CBC, PINR, 19327-8, CMP, 1987-07, HA1C, 58365-5 #### [facility] ([id number]) [address] [place], [place] [address]EVD/1.73 sq M.predicted among non-blacks MDRD (S/P/Bld) [Vol rate/Area]57 mL/min/{1.73_m2}Low>59ProChildren'S Hospital Of ColumbusComment on above: Result Comment: Reported eGFR is based on the CKD-EPI 2020 equation that does not use a race coefficient.Performed By: #### CBC, PINR, 81993-9, CMP, 1987-07, HA1C, 50533-5 #### [facility] ([id number]) [address], [address] [place], [place] [address]Zcesszgsbp [Mass/Vol]1.01 mg/dLNormal0.60-1.30Pro[facility] HospitalComment on above:Result Comment: METHOD TRACEABLE TO IDMS STANDARD Performed By: #### CBC, PINR, 52408-2, CMP, 1987-07, HA1C, 69105-6 #### [facility] ([id number]) [address], [address] [address]IXP/1.73 sq M.predicted among non-blacks MDRD (S/P/Bld) [Vol rate/Area]76 mL/min/{1.73_m2}Normal>59ProChildren'S Hospital Of ColumbusComment on above: Result Comment: Reported eGFR is based on the CKD-EPI 2020 equation that does not use a race coefficient.Performed By: #### ALPHONSE, PINR, 45480-1, CMP, 1987-07, HA1C, 59395-1 #### [facility] ([id number]) [address] [facility], [address] [address]Vdoefut.ionized (Bld) [Mass/Vol]on 33-00-5799RWHQMOQ CALCIUM4.7 mg/dLNormal4.5-5.3PParkview HealthComment on above:Performed By: #### ALPHONSE, PINR, 24149-7, CMP, 1987-07, HA1C, 44740-0 #### [facility] ([id number]) [address] [facility], [address] [address]WVKMMTH CALCIUM5.0 mg/dLNormal4.5-5.3PParkview Health Comment on above:Performed By: #### CBC, PINR, 05755-6, CMP, 1987-07, HA1C, 37835-8 #### [facility] ([id number]) [address], [address] [place], [place] [address]Agstjev Glucometer (BldC) [Mass/Vol]on 51-58-8648Wdolgrk [Mass/Vol]125 mg/uNXesy19-89ZrbPqzsruChildren'S Hospital Of ColumbusGlucose [Mass/Vol]131 mg/dL Hepn94-57RszSsmwbjChildren'S Hospital Of ColumbusGlucose [Mass/Vol]124 mg/jXOiwl44-67JobPluatkChildren'S Hospital Of ColumbusHGB AND HCTon 81-28-5012Viqkpqbxuq (Bld) [Volume fraction]38.8 % Yaq36-15NtyAevnbd [place] HospitalComment on above:Performed By: #### CBC, PINR, 21425-2, CMP, 1987-07, HA1C, 03592-8 #### [facility] ([id number]) [address], [address] [place], [place] [address]Vrnhoycrxa (Bld) [Mass/Vol]13.6 g/kKNafkfa09.0-17.0ProMansfield Hospitalca [place] HospitalComment on above:Performed By: #### CBC, PINR, 93223-9, CMP, 1987-07, HA1C, 10357-3 #### [facility] ([id number]) [address], [address] [place], [place] [address]Ufdfgssqmo (Bld) [Volume fraction]28.9 %Oci36-80FzyQivsgn [place] HospitalComment on above:Performed By: #### CBC, PINR, 97761-7, CMP, 1987-07, HA1C, 49986-4 #### [facility] ([id number]) [address], [address] [place], [place] [address]Ntpwxwkuhs (Bld) [Mass/Vol]10.0 g/dLLow13.0-17.0Pro[facility] HospitalComment on above:Performed By: #### CBC, PINR, 80505-0, CMP, 1987-07, HA1C, 81915-0 #### [facility] ([id number]) [address], [address] [place], [place] [address]Gotkacnyr Ionized ISE (Bld) [Moles/Vol]on 45-18-4424Xepamskcc [Moles/Vol]0.73 mmol/LNormal0.45-0.74Pro[facility] HospitalComment on above: Result Comment: NEW REFERENCE RANGEPerformed By: #### CBC, PINR, 30275-6, CMP, 1987-07, HA1C, 19908-4 #### [facility] ([id number]) [address] [place] [address]Gftrpmelf [Moles/Vol]0.74 mmol/LNormal0.45-0.74ProMedica Ramirez HospitalComment on above:Result Comment: NEW REFERENCE RANGEPerformed By: #### CBC, PINR, 26612-6, CMP, 1987-07, HA1C, 19942-4 #### [facility] ([id number]) [address] [place], [place] [address]Wdgqgrqxr [Moles/Vol]0.44 mmol/LLow0.45-0.60ProMedica Ramirez HospitalComment on above:Performed By: #### CBC, PINR, 10864-1, CMP, 1987-07, HA1C, 34982-5 #### [facility] ([id number]) [address] [place], [place] [address]UJVFSZVZ COUNT AND MPVon 16-41-9999Anysfgvz mean volume (Bld) [Entitic vol]8.3 fLNormal7-12ProMedica Ramirez HospitalComment on above:Performed By: #### CBC, PINR, 02485-1, CMP, 1987-07, HA1C, 63422-4 #### [facility] ([id number]) [address], [address] [place] [address]Jwnmgsfbo (Bld) [#/Vol]137 10*3/oQCts981-998YcmWjeruu Ramirez HospitalComment on above:Performed By: #### CBC, PINR, 03192-8, CMP, 1987-07, HA1C, 94882-3 #### [facility] ([id number]) [address] [place], [place] [address]DCNNTEBSSrn 36-64-7533Czqmolfte [Moles/Vol]4.5 mmol/LNormal 3.5-5.0ProMedica Ramirez HospitalComment on above:Performed By: #### CBC, PINR, 60132-4, CMP, 1987-07, HA1C, 05704-7 #### [facility] ([id number]) [address], [address] [place], [place] [address]Tvxonabdg [Moles/Vol]4.6 mmol/LNormal3.5-5.0Pro[facility] HospitalComment on above:Performed By: #### CBC, PINR, 78478-4, CMP, 1987-07, HA1C, 94625-5 #### [facility] ([id number]) [address], [address] [place], [place] [address]HRQUGRC AND INRon 23-41-6305NZX Coag (PPP) [Relative time]1.3 {INR}High0.8-1.1ProMedTogus VA Medical CenterComment on above:Performed By: #### CBC, PINR, 99274-9, CMP, 1987-07, HA1C, 92161-5 #### [facility] ([id number]) [address], [address] [place], [place] [address]RR Coag (PPP) [Time]15.2 sHigh9.8-13.2PParkview Health Comment on above:Performed By: #### CBC, PINR, 92957-0, CMP, 1987-07, HA1C, 17393-1 #### [facility] ([id number]) [address], [address] [place], [place] [address]EZPTU CARDIACon 82-88-6843GXKSO'S TESTNormalProUniversity [facility]als [facility] HospitalComment on above:Performed By: #### CBC, PINR, 13289-2, CMP, 1987-07, HA1C, 65084-4 #### [facility] ([id number]) [address], [address] [place], [place] [address]REPS,DEFICIT3.1 MMOL/LHigh0.0-2.0ProChildren'S Hospital Of Columbus Comment on above:Performed By: #### CBC, PINR, 27758-8, CMP, 1987-07, HA1C, 33503-5 #### [facility] ([id number]) [address] [place] [address]Tnrx ubvptmvctuf86.6 [degF]Wnkspm31.0[facility] Comment on above:Performed By: #### CBC, PINR, 06588-7, CMP, 1987-07, HA1C, 56925-6 #### [facility] ([id number]) [address], [address] [place], [place] [address]Emulghe [Mass/Vol]137 mg/jXYmtl67-21UujOetwlzCleveland Clinic [facility]ina Hospital Comment on above:Performed By: #### CBC, PINR, 51062-6, CMP, 1987-07, HA1C, 93226-7 #### [facility] ([id number]) [address], [address] [place], [place] [address]ANQ1 (Bld) [Moles/Vol]21.9 mmol/JOsh12-11KczBslpniChildren'S Hospital Of ColumbusComment on above:Performed By: #### CBC, PINR, 60777-6, CMP, 1987-07, HA1C, 23357-9 #### [facility] ([id number]) [address] [place] [address]Nowvgmywxe (Bld) [Volume fraction]29 %Jqd58-14VrnVdengxChildren'S Hospital Of ColumbusComment on above:Performed By: #### CBC, PINR, 99195-3, CMP, 1987-07, HA1C, 73163-5 #### [facility] ([id number]) [address], [address] [place], [place] [address]Yfbvmjffmb (Bld) [Mass/Vol]9.5 g/dLLow13.0-17.0ProChildren'S Hospital Of ColumbusComment on above:Performed By: #### CBC, PINR, 46380-4, CMP, 1987-07, HA1C, 08072-8 #### [facility] ([id number]) [address], [address] [place], [place] [address]EYJN. O2 CONC.100 %NormalProUniversity Hospitals [facility] HospitalComment on above:Performed By: #### CBC, PINR, 15968-2, CMP, 1987-07, HA1C, 38882-4 #### [facility] ([id number]) [address], [address] [place], [place] [address]OQCNJDB CALCIUM5.3 mg/dLNormal4.5-5.3PParkview Health Comment on above:Performed By: #### CBC, PINR, 55399-3, CMP, 1987-07, HA1C, 99310-4 #### [facility] ([id number]) [address] [place], [place] [address]Zfcjlh (Bld) [Partial pressure]235 mm[Hg]Bazu43-765XeoYwjlpb [place] HospitalComment on above:Performed By: #### CBC, PINR, 84961-0, CMP, 1987-07, HA1C, 12804-3 #### [facility] ([id number]) [address], [address] [place], [place] [address]Yyqmqs saturation in Shujk496.0 %Normal>90ProChildren'S Hospital Of ColumbusComment on above:Performed By: #### CBC, PINR, 97749-0, CMP, 1987-07, HA1C, 70874-5 #### [facility] ([id number]) [address], [address] [place], [place] [address]YGN779.3 MVGVLzylxk66-10EueAfplgp [place] HospitalComment on above:Performed By: #### CBC, PINR, 40393-3, CMP, 1987-07, HA1C, 12052-3 #### [facility] ([id number]) [address], [address] [place], [place] [address]pQ (Bld)7.389 [pH]Normal7.350-7.450ProChildren'[facility] Hospital Of [facility] Comment on above:Performed By: #### CBC, PINR, 54817-7, CMP, 1987-07, HA1C, 99280-9 #### [facility] ([id number]) [address], [address] [place], [place] [address]Kwryemvln [Moles/Vol]4.6 mmol/LNormal3.5-5.0ProMedica [place] HospitalComment on above:Performed By: #### CBC, PINR, 02816-5, CMP, 1987-07, HA1C, 49847-9 #### [facility] ([id number]) [address] [place], [place] [address]TRMFHR SITEALINENormalProMedica [place] HospitalComment on above: Performed By: #### CBC, PINR, 65023-5, CMP, 1987-07, HA1C, 83157-0 #### [facility] ([id number]) [address] [place], [place] [address]NYFIEV TYPEArterialNormalProMansfield Hospitalca [place] HospitalComment on above:Performed By: #### CBC, PINR, 51584-4, CMP, 1987-07, HA1C, 72237-8 #### [facility] ([id number]) [address] [place], [place] [address]UENLF'S TESTNormalProMansfield Hospitalca [place] HospitalComment on above: Performed By: #### AFAB5 #### [facility] ([id number]) [address] [place], [place] [address]TPRG,DEFICIT0.9 MMOL/LNormal0.0-2.0ProChildren'S Hospital Of [facility] Comment on above:Performed By: #### AFAB5 #### [facility] ([id number]) [address] [place], [place] [address]Byim weeqrewcyce01.6 [degF]Fpkwtk52.0ProChildren'S Hospital [facility] Comment on above:Performed By: #### AFAB5 #### [facility] ([id number]) [address] [place], [place] [address]Yqygjdq [Mass/Vol]102 mg/dIVxhv48-46AmlDlqgkuC[facility] Clinic [facility] Hospital Comment on above:Performed By: #### AFAB5 #### [facility] ([id number]) [address] [place], [place] [address]LVW4 (Bld) [Moles/Vol]23.3 mmol/VXjsbvq41-85ItfLopjxg [place] HospitalComment on above:Performed By: #### AFAB5 #### [facility] ([id number]) [address] [place], [place] [address]Utevtntnhc (Bld) [Volume fraction]37 %Vwx73-22GulQphqczChildren'S Hospital Of ColumbusComment on above:Performed By: #### AFAB5 #### [facility] ([id number]) [address] [place], [place] [address]Wltfaxonwo (Bld) [Mass/Vol]12.1 g/dLLow13.0-17.0ProChildren'S Hospital Of ColumbusComment on above:Performed By: #### AFAB5 #### [facility] ([id number]) [address] [place], [place] [address]JYYT. O2 CONC.100 %NormalProChildren'S Hospital Of ColumbusComment on above:Performed By: #### AFAB5 #### [facility] ([id number]) [address] [place], [place] [address]LMZKNJP CALCIUM4.9 mg/dLNormal4.5-5.3PParkview Health Comment on above:Performed By: #### AFAB5 #### [facility] ([id number]) [address] [place], [place] [address]Ulxfpu (Bld) [Partial pressure]212 mm[Hg]Hhyw21-274UtoYqetgl [place] HospitalComment on above:Performed By: #### AFAB5 #### [facility] ([id number]) [address] [place], [place] [address]Zpyvyg saturation in Gkler518.0 %Normal>90ProChildren'S Hospital Of ColumbusComment on above:Performed By: #### AFAB5 #### [facility] ([id number]) [address] [place], [place] [address]BUC710.0 KBBOHwofzs21-54OcgCjsawu [place] HospitalComment on above:Performed By: #### AFAB5 #### [facility] ([id number]) [address] [place], [place] [address]oA (Bld)7.433 [pH]Normal7.350-7.450[facility] Comment on above:Performed By: #### AFAB5 #### [facility] ([id number]) [address] [place], [place] [address]Uamjvjqem [Moles/Vol]3.8 mmol/LNormal3.5-5.0ProChildren'S Hospital Of ColumbusComment on above:Performed By: #### AFAB5 #### [facility] ([id number]) [address] [place], [place] [address]HSODCF SITEALINENormalCleveland Clinic Medina HospitalComment on above: Performed By: #### AFAB5 #### [facility] ([id number]) [address] [place], [place] [address]OSHRSI TYPEArterialNormalMain Campus Medical Center HospitalComment on above:Performed By: #### AFAB5 #### [facility] ([id number]) [address] [place], [place] [address]LM CHEST 1 VWon 39-78-6036NR CHEST 1 VWXR CHEST 1 VW Single view chest History: [...] by Martin Adler MD on 02/15/2024 12:25 PMNormalProChildren'S Hospital Of ColumbusaPTT Coag (PPP) [Time]on 33-33-5653kHDJ Coag (Bld) [Time]27 dIzxqvt13-00 [facility] HospitalComment on above:Performed By: #### CBC, PINR, 36483-5, CMP, 1988-, HA1C, 68611-0 #### [facility] ([id number]) [address] [place], [place] [address]OJ CHEST W CONTon 77-15-5492RM CHEST W CONTCT CHEST W CONT HISTORY: Dilated aorta. Preoperative testing Comparison February 11, 2019 CT chest PROCEDURE: CT chest performed using IV contrast without complications. Postcontrast images obtained. Automatedexposure control utilized. FINDINGS: Mid ascending thoracic aorta [...] by Roge Pollock MD on 02/12/2024 11:[address] Luke'S Health – Patients Medical CenterCOMPLETE BLOOD COUNTon 64-06-6486Bxeyqxczfbf distribution width (RBC) [Ratio]14.6 %Claare01.5-15.0ProUniversity [facility] HospitalComment on above:Performed By: #### CBC, PINR, 10972-0, CMP, 1987-07, HA1C, 15591-8 #### [facility] ([id number]) [address] [place], [place] [address]Cwelkyndmo (Bld) [Volume fraction]39.0 %Axolhi56-59PrxYbnfuy [place] HospitalComment on above:Performed By: #### CBC, PINR, 19575-5, CMP, 1987-07, HA1C, 47676-9 #### [facility] ([id number]) [address] [place], [place] [address]Mgivayjfel (Bld) [Mass/Vol]13.4 g/oVNkjfml57.0-17.0ProUniversity [facility]als [facility] HospitalComment on above:Performed By: #### CBC, PINR, 51460-2, CMP, 1987-07, HA1C, 53697-7 #### [facility] ([id number]) [address] [place], [place] [address]LOV (RBC) [Entitic mass]30.3 feJviijk98-02ZqlUwuits [place] HospitalComment on above:Performed By: #### CBC, PINR, 33470-3, CMP, 1987-07, HA1C, 68067-0 #### [facility] ([id number]) [address] [place], [place] [address]YMXH (RBC) [Mass/Vol]34.3 g/mYUrdcsg18-98NepBryael [place] HospitalComment on above:Performed By: #### CBC, PINR, 91144-4, CMP, 1987-07, HA1C, 22215-4 #### [facility] ([id number]) [address] [place], [place] [address]YWZ (RBC) [Entitic vol]88 jFQgacou17-055EboXaerjj [place] HospitalComment on above:Performed By: #### CBC, PINR, 81670-3, CMP, 1987-07, HA1C, 96086-6 #### [facility] ([id number]) [address] [place], [place] [address]Hzytybae mean volume (Bld) [Entitic vol]8.0 fLNormal7-12 [facility] [place] HospitalComment on above:Performed By: #### CBC, PINR, 01522-9, CMP, 1987-07, HA1C, 90059-5 #### [facility] ([id number]) [address] [place], [place] [address]Fydiusbkg (Bld) [#/Vol]203 10*3/dUDnoiyx512-235RucHzjtfg [place] HospitalComment on above:Performed By: #### CBC, PINR, 11124-2, CMP, 1987-07, HA1C, 62165-2 #### [facility] ([id number]) [address] [place], [place] [address]BVN COUNT4.42 X10E12/LNormal4.10-5.70ProUniversity [facility] Comment on above:Performed By: #### CBC, PINR, 56347-3, CMP, 1987-07, HA1C, 86832-3 #### [facility] ([id number]) [address] [place], [place] [address]CKG (Bld) [#/Vol]5.7 10*3/uLNormal4.0-11.0ProMansfield Hospitalca [place] HospitalComment on above:Performed By: #### CBC, PINR, 86232-3, CMP, 1987-07, HA1C, 19860-2 #### [facility] ([id number]) [address] [place], [place] [address]KICVDYNIREEGY METABOLIC PANELon 26-86-3135Mzcwqrg [Mass/Vol]4.3 g/dLNormal3.2-5.3ProMedica Ramirez HospitalComment on above:Performed By: #### CBC, PINR, 60061-9, CMP, 1987-07, HA1C, 64664-9 #### [facility] ([id number]) [address] [place], [place] [address]UPP [Catalytic activity/Vol]46 U/IXdcqfr12-136RxlKkihkb Ramirez HospitalComment on above:Performed By: #### CBC, PINR, 70275-7, CMP, 1987-07, HA1C, 61874-3 #### [facility] ([id number]) [address] [place], [place] [address]YXP [Catalytic activity/Vol]13 U/LNormal0-40ProMedica Ramirez HospitalComment on above:Performed By: #### CBC, PINR, 60307-6, CMP, 1987-07, HA1C, 77114-7 #### [facility] ([id number]) [address] [place], [place] [address]Rfdam gap [Moles/Vol]10 mmol/LNormal5-15Pro[facility] Ramirez HospitalComment on above:Performed By: #### CBC, PINR, 31376-0, CMP, 1987-07, HA1C, 34300-1 #### [facility] ([id number]) [address] [place], [place] [address]ZHX [Catalytic activity/Vol]16 U/LNormal0-41Pro[facility] HospitalComment on above:Performed By: #### CBC, PINR, 66391-2, CMP, 1987-07, HA1C, 08059-3 #### [facility] ([id number]) [address], [address] [place], [place] [address]Mybhrxevf [Mass/Vol]1.4 mg/dLHigh0.3-1.2ProMedica Ramirez HospitalComment on above:Performed By: #### CBC, PINR, 45436-0, CMP, 1987-07, HA1C, 60510-3 #### [facility] ([id number]) [address], [address] [place], [place] [address]Jxebzys [Mass/Vol]9.7 mg/dLNormal8.5-10.5PSelect Medical TriHealth Rehabilitation Hospital HospitalComment on above:Performed By: #### CBC, PINR, 11750-7, CMP, 1987-07, HA1C, 60866-3 #### [facility] ([id number]) [address], [address] [place], [place] [address]Usimqdym [Moles/Vol]102 mmol/CZvfofx44-702EvaIhbpfd [place] HospitalComment on above:Performed By: #### CBC, PINR, 03752-7, CMP, 1987-07, HA1C, 45628-2 #### [facility] ([id number]) [address], [address] [place], [place] [address]MW3 [Moles/Vol]27 mmol/WGkldrb95-83BpkHpuelt [facility] Comment on above:Performed By: #### CBC, PINR, 46375-9, CMP, 1987-07, HA1C, 55981-9 #### [facility] ([id number]) [address], [address] [place], [place] [address]Agvsgkdvqd [Mass/Vol]1.10 mg/dLNormal0.60-1.30ProChildren'S Hospital Of ColumbusComment on above:Result Comment: METHOD TRACEABLE TO IDMS STANDARD Performed By: #### CBC, PINR, 17013-8, CMP, 1987-07, HA1C, 96194-7 #### [facility] ([id number]) [address], [address] [place], [place] [address]EZH/1.73 sq M.predicted among non-blacks MDRD (S/P/Bld) [Vol rate/Area]69 mL/min/{1.73_m2}Normal>59ProChildren'S Hospital Of ColumbusComment on above: Result Comment: Reported eGFR is based on the CKD-EPI 2020 equation that does not use a race coefficient.Performed By: #### ALPHONSE, PINR, 81939-5, CMP, 1987-07, HA1C, 24030-0 #### [facility] ([id number]) [address], [address] [place], [place] [address]Wfclaew [Mass/Vol]90 mg/uAXyqxpc69-65OclLmnnwt [facility] Comment on above:Performed By: #### ALPHONSE, PINR, 03011-9, CMP, 1987-07, HA1C, 29179-5 #### [facility] ([id number]) [address], [address] [place], [place] [address]Vbemlvhah [Moles/Vol]4.2 mmol/LNormal3.5-5.0ProChildren'S Hospital Of ColumbusComment on above:Performed By: #### ALPHONSE, PINR, 05359-0, CMP, 1987-07, HA1C, 27712-9 #### [facility] ([id number]) [address], [address] [place], [place] [address]Nkqkwsz [Mass/Vol]7.1 g/dLNormal6.0-8.0[facility] Comment on above:Performed By: #### ALPHONSE, PINR, 50710-1, CMP, 1987-07, HA1C, 23302-3 #### [facility] ([id number]) [address], [address] [place], [place] [address]Qxfpah [Moles/Vol]139 mmol/OXeomyu672-877ByqYjnqkh [place] HospitalComment on above:Performed By: #### ALPHONSE, PINR, 69894-4, CMP, 1987-07, HA1C, 76986-0 #### [facility] ([id number]) [address], [address] [place], [place] [address]Vpyh nitrogen [Mass/Vol]22 mg/dLNormal5-27ProChildren'S Hospital Of ColumbusComment on above:Performed By: #### CBC, PINR, 72118-6, CMP, 1987-07, HA1C, 76655-7 #### [facility] ([id number]) [address], [address] [place], [place] [address]OYW [Mass/Vol]on 4C REACTIVE PROTEIN0.5 mg/dLNormal 0.000-0.744PParkview HealthComment on above:Performed By: #### CBC, PINR, 12607-5, CMP, 1987-07, HA1C, 35454-9 #### [facility] ([id number]) [address] [place], [place] [address]YHV A1C (GLYCO-HGB)on 11-51-5106Hybuyzi [Mass/Vol]117 mg/dL NormalCleveland Clinic Medina HospitalComment on above:Performed By: #### CBC, PINR, 91722-1, CMP, 1987-07, HA1C, 89891-7 #### [facility] ([id number]) [address] [place], [place] [address]NoJ4z (Bld) [Mass fraction]5.7 %High4.4-5.6[facility] Medina HospitalComment on above:Result Comment: NOTE ADA Guidelines Result HgbA1c Normal : less than 5.7 % Prediabetes : 5.7 % to 6.4 % Diabetes : > 6.4 % Use with caution in patients with abnormal hemoglobin variants as the half-life of red blood cells and in vivo glycation rates are affected.Performed By: #### CBC, PINR, 36988-9, CMP, 1987-07, HA1C, 58796-9 #### [facility] ([id number]) [address], [address] [place], [place] [address]Telhppapjyl peptide B [Mass/Vol]on 25-37-7180Mihjqugesvl peptide B (Bld) [Mass/Vol]114 pg/mLHigh<100.0ProMedica Staten Island HospitalComment on above: Performed By: #### CBC, PINR, 47844-4, CMP, 1987-07, HA1C, 96691-3 #### [facility] ([id number]) [address] [place], [place] [address]MAOOCPI AND INRon 74-55-0747KPS Coag (PPP) [Relative time]1.3 {INR}High0.8-1.1ProMedOhioHealth Shelby Hospital HospitalComment on above:Performed By: #### CBC, PINR, 09814-5, CMP, 1987-07, HA1C, 56191-7 #### [facility] ([id number]) [address], [address] [place], [place] [address]CM Coag (PPP) [Time]14.8 sHigh9.8-13.2PParkview Health Comment on above:Performed By: #### CBC, PINR, 25256-5, CMP, 1987-07, HA1C, 75724-5 #### [facility] ([id number]) [address], [address] [place], [place] [address]VABYKUWAZGge 35-10-7976Dpnwqcjud Ql (U)NegativeNormalNEG [facility] Island HospitalComment on above:Performed By: #### UA #### [facility] ([id number]) [address], [address] [place], [place] [address]AIUDW/HGBNegativeNormalNEGProMedica Staten Island HospitalComment on above:Performed By: #### UA #### [facility] ([id number]) [address] [place], [place] [address]Hsrzu (U)YELLOWNormalYELLOWProMedica Staten Island HospitalComment on above:Performed By: #### UA #### [facility] ([id number]) [address], [address] [place], [place] [address]Ekkqsfj Ql (U)NegativeNormalNEGProMedica Ramirez HospitalComment on above:Performed By: #### UA #### [facility] ([id number]) [address], [address] [place], [place] [address]Rdeinne Ql (U)TraceAbnormalNEGProMedica Ramirez HospitalComment on above:Performed By: #### UA #### [facility] ([id number]) [address], [address] [place], [place] [address]Xdcdhyagu esterase Test strip Ql (U)NegativeNormalNEGProMedica Ramirez HospitalComment on above:Performed By: #### UA #### [facility] ([id number]) [address] [place], [place] [address]Lyovaku Ql (U)NegativeNormalNEGProMedica Ramirez HospitalComment on above:Performed By: #### UA #### [facility] ([id number]) [address] [place], [place] [address]tS (U)7.0 [pH]Normal5.0-8.5ProMedica Ramirez HospitalComment on above:Performed By: #### UA #### [facility] ([id number]) [address] [place], [place] [address]Znrtnxn Ql (U)NegativeNormalNEGProMedica Ramirez HospitalComment on above:Performed By: #### UA #### [facility] ([id number]) [address] [place], [place] [address]Xvvcdusv gravity (U) [Rel density]1.787Hroa8.003-1.035ProMedica Ramirez HospitalComment on above:Performed By: #### UA #### [facility] ([id number]) [address], [address] [place], [place] [address]YYOJIVBZVPLIHDObmcjzZLODNUgnPwfchz Ramirez HospitalComment on above:Performed By: #### UA #### [facility] ([id number]) [address] [place], [place] [address]Ofdjwkkahrox (U) [Mass/Vol]mg/dLNormal<1.1PParkview HealthComment on above:Performed By: #### UA #### [facility] ([id number]) [address] [place], [place] [address]hTHL Coag (PPP) [Time]on 09-79-6885uLLP Coag (Bld) [Time]49 s Wcwf27-11GpiAfynksCleveland Clinic Medina HospitalComment on above:Performed By: #### CBC, PINR, 08665-0, CMP, 1987-07, HA1C, 06933-3 #### [facility] ([id number]) [address] [place], [place] [address]AGFT Protime / INRon 40-63-6355OUB Coag (PPP) [Relative time]1.4 {INR}Abnormal0.8 - 1.2PPomerene HospitalInterpretation and review of laboratory resultsAbnormalLehigh Valley Hospital - Schuylkill East Norwegian StreetBASIC METABOLIC PANLon 85-63-4774Qcuzc gap [Moles/Vol]7 mmol/LNormal5-15ProChi St. Luke'S Health – Patients Medical CenterComment on above:Performed By: #### CBC, BMP #### [facility] ([id number]) [address], [address] [place], [place] [address]Mowedwk [Mass/Vol]9.6 mg/dLNormal8.5-10.5PMercy Health St. Anne HospitalComment on above:Performed By: #### CBC, BMP #### [facility] ([id number]) [address], [address] [place], [place] [address]Ixdzrheg [Moles/Vol]103 mmol/JIrvhxb61-588WyaUmjlqaChi St. Luke'S Health – Patients Medical CenterComment on above:Performed By: #### CBC, BMP #### [facility] ([id number]) [address] [place], [place] [address]CS6 [Moles/Vol]27 mmol/LRmxooa31-60DuyMkxljiMercy Health St. Anne Hospital Comment on above:Performed By: #### ALPHONSE, BMP #### [facility] ([id number]) [address] [address], [address] [place], [place] [address]Fwskdmcwxw [Mass/Vol]1.17 mg/dLNormal0.60-1.30Metro[facility] Parma Medical CenterComment on above:Result Comment: METHOD TRACEABLE TO IDMS STANDARD Performed By: #### ALPHONSE, BMP #### [facility] ([id number]) [address] [facility] [address] [address], [address] [place], [place] [address]TKE/1.73 sq M.predicted among non-blacks MDRD (S/P/Bld) [Vol rate/Area]64 mL/min/{1.73_m2}Normal>59Met[facility] Parma Medical CenterComment on above:Result Comment: Reported eGFR is based on the CKD-EPI 1 equation that does not use a race coefficient.Performed By: #### ALPHONES, BMP #### [facility] ([id number]) [address] [place], [place] [address]Ppgjtro [Mass/Vol]115 mg/eGPcvl32-56UctJscwghMetroHealth Parma Medical Center Comment on above:Performed By: #### ALPHONSE, BMP #### [facility] ([id number]) [address] [place], [place] [address]Phmsqwlns [Moles/Vol]4.4 mmol/LNormal3.5-5.0[facility] Medical CenterComment on above:Performed By: #### ALPHONSE, BMP #### [facility] ([id number]) [address] [place], [place] [address]Phorky [Moles/Vol]137 mmol/KUdsgxu916-862CwvOgdmie [facility]ont HospitalComment on above:Performed By: #### CBC, BMP #### [facility] ([id number]) [address] [facility] [address] [place], [place] [address]Rqgw nitrogen [Mass/Vol]21 mg/dLNormal5-27ProChi St. Luke'S Health – Patients Medical CenterComment on above:Performed By: #### CBC, BMP #### [facility] ([id number]) [address], [address] [address]VWMXEPWG BLOOD COUNTon 75-33-2116Uhvhkuxlcst distribution width (RBC) [Ratio]14.3 %Sfpguh27.5-15.0Met[facility] Parma Medical CenterComment on above: Performed By: #### CBC, BMP #### [facility] ([id number]) [address] [address]Gdfcudmmup (Bld) [Volume fraction]37.7 %Hva59-03IacUczsvrChi St. Luke'S Health – Patients Medical CenterComment on above:Performed By: #### CBC, BMP #### [facility] ([id number]) [address], [address] [address]Rcpthijlav (Bld) [Mass/Vol]13.0 g/fEBmefpe09.0-17.0[facility] Medical CenterComment on above:Performed By: #### CBC, BMP #### [facility] ([id number]) [address], [address] [place], [place] [address]UTA (RBC) [Entitic mass]30.8 dgOoqblw77-26LopJjnkvk [facility] HospitalComment on above:Performed By: #### CBC, BMP #### [facility] ([id number]) [address], [address] [address]KINX (RBC) [Mass/Vol]34.6 g/rKGqxpkl99-48AumRdqgjm [facility] HospitalComment on above:Performed By: #### CBC, BMP #### [facility] ([id number]) [address], [address] [place] [address] [place] [address]AGG (RBC) [Entitic vol]89 mXSdkyhp87-473RluVpuebt [facility] HospitalComment on above:Performed By: #### CBC, BMP #### [facility] ([id number]) [address], [address] [place], [place] [address]Gricvicn mean volume (Bld) [Entitic vol]8.4 fLNormal7-12 ProMPublic Health Service HospitalComment on above:Performed By: #### CBC, BMP #### [facility] ([id number]) [address], [address] [place], [place] [address]Lmzmmqfbm (Bld) [#/Vol]215 10*3/eGAbewvd859-761VozFtyphc [facility] HospitalComment on above:Performed By: #### CBC, BMP #### [facility] ([id number]) [address], [address] [place], [place] [address]TQO COUNT4.22 X10E12/LNormal4.10-5.70[facility] Comment on above:Performed By: #### CBC, BMP #### [facility] ([id number]) [address], [address] [place] [address]ZLO (Bld) [#/Vol]5.4 10*3/uLNormal4.0-11.0ProChi St. Luke'S Health – Patients Medical CenterComment on above:Performed By: #### CBC, BMP #### [facility] ([id number]) [address], [address] [place], [place] [address]ZFIX EKGon 95-55-6265DzvJncaedPomerene HospitalPOCT Protime / INRon 53-53-4130BJQ Coag (PPP) [Relative time]2.3 {INR}Abnormal0.8 - 1.2PCleveland Clinic Lutheran Hospital SystemInterpretation and review of laboratory resultsAbnoJeanes HospitalPOCT Protime / INRon 33-00-7499TCS Coag (PPP) [Relative time]2.3 {INR}Abnormal0.8 - 1.2PC[facility] System Interpretation and review of laboratory resultsAbnoWellSpan Surgery & Rehabilitation Hospital System The Bellevue HospitalALL BASIC METABOLIC PANELon 99-38-1246Rysid gap [Moles/Vol]11.8 mmol/LNOMS HealthcareCalcium [Mass/Vol]9.2 mg/dL8.5 - 10.1 mg/dL NOMS HealthcareChloride [Moles/Vol]100 mmol/L98 - 107 mmol/LNOMS HealthcareCO2 [Moles/Vol]28.3 mmol/L21.0 - 32.0 mmol/LNOMS HealthcareCreatinine [Mass/Vol]1.13 mg/dL0.70 - 1.30 mg/dLNOGA HealthcareGFR/1.73 sq M.predicted CKD-EPI (S/P/Bld) [Vol rate/Area]>6060 - PINFNOMS HealthcareGlucose [Mass/Vol]95 mg/dL74 - 106 mg/dLNOGA HealthcarePotassium [Moles/Vol]4.1 mmol/L3.5 - 5.1 mmol/LNOMS HealthcareSodium [Moles/Vol]136 mmol/L136 - 145 mmol/LNOMS HealthcareTBH EGFR- NON AF MACANESE>6060 - PINFNOMS HealthcareUrea nitrogen [Mass/Vol]20.0 mg/dLHigh 7.0 - 18.0 mg/dLNOGA HealthcareUrea nitrogen/Creatinine [Mass ratio]17.7 mg/mg NOM HealthcareALL CBC WITH AUTO DIFFon 27-40-7937NTWXLAREW ABSOLUTE AUTO0.1NOMS HealthcareBasophils/100 WBC (Bld)0.9 %0.2 - 2.0 %NOMS HealthcareEosinophils/100 WBC (Bld)2.6 %0.9 - 7.0 %NOMS HealthcareErythrocyte distribution width (RBC) [Ratio]14.0 %11.0 - 15.0 %NOMS HealthcareHematocrit (Bld) [Volume fraction]38.0 %Low42.0 - 54.0 %NOMS HealthcareHemoglobin (Bld) [Mass/Vol]13.0 g/dLLow14.0 - 18.0 g/dLNOGA HealthcareIMMATURE GRANULOCYTES ABS AUTO0.01NOMS Healthcare Immature granulocytes/100 WBC (Bld)0.2 %0.0 - 0.5 %[facility] HospitalInterpretation and review of laboratory resultsAbnormalNOSSM Health CareLYMPHOCYTES ABSOLUTE AUTO1.6NOSSM Health CareLymphocytes/100 WBC (Bld)23.7 %20.5 - 60.0 %[facility] ServicesH (RBC) [Entitic mass]30.1 pg25.9 - 34.0 pgHeartland Behavioral Health ServicesHC (RBC) [Mass/Vol]34.2 g/dL29.9 - 35.2 g/dLHeartland Behavioral Health ServicesV (RBC) [Entitic vol]88.0 fL 80.0 - 94.0 fLSoutheast Missouri HospitalMONOCYTES ABSOLUTE AUTO0.4NOSSM Health Care Monocytes/100 WBC (Bld)6.7 %1.7 - 12.0 %[facility] HospitalNEUTROPHILS ABSOLUTE AUTO 4.3NOMS [facility] Medical CenterNeutrophils/100 WBC (Bld)65.9 %43.0 - 75.0 %[facility] Platelet mean volume (Bld) [Entitic vol]9.9 fL9.5 - 13.5 fLSoutheast Missouri HospitalTB EO #0.2NCapital Region Medical CenterTB NOH324MBFTSainte Genevieve County Memorial Hospital RBC4.32LowNOSainte Genevieve County Memorial Hospital WBC 6.5NOSSM Health CareCLINISYNCNCapital Region Medical CenterALL LIPID PROFILE (FASTING)on 05-96-8946HBYJ HDL RATIO4.1NNORMAN REGIONAL HOSPITAL MOORE – MOORE HealthcareComment on above:3.3 - 4.4 LOW RISK 4.4 - 7.1 AVERAGE RISK 7.1 - 11.0 MODERATE RISK >11.0 HIGH RISK Cholesterol [Mass/Vol]188 mg/dLNINF - 200 mg/dLSoutheast Missouri HospitalCholesterol in HDL [Mass/Vol]46 mg/dL40 - 60 mg/dLBLUE MOUNTAIN HOSPITAL HealthcareComment on above:> or =60 mg/dl - LOW CARDIOVASCULAR RISK <40 mg/dl - HIGH CARDIOVASCULAR RISK Magnesium [Mass/Vol]118.6 mg/dLBLUE MOUNTAIN HOSPITAL HealthcareComment on above:<100 mg/dl OPTIMAL 100-129 mg/dl NEAR OR ABOVE OPTIMAL 130-159 mg/dl BORDERLINE HIGH 160-189 mg/dl HIGH >190 mg/dl VERY HIGH Magnesium [Mass/Vol]23.4 mg/dLSoutheast Missouri HospitalTriglyceride [Mass/Vol]117 mg/dL NINF - 150 mg/dLNOMS HealthcareALL MAGNESIUMon 68-93-4954Gfmfbenqy [Mass/Vol]2.1 mg/dL1.8 - 2.4 mg/dLNOMS HealthcareCLINISYNCNOMS HealthcareALL T3 FREEon 39-50-5808Zwar T3 [Mass/Vol]2.69 pg/mL2.18 - 3.98 pg/mLNOMS HealthcareALL THYROID STIM HORMONEon 78-37-0536BDE Qn4.228 m[IU]/LHighNOMS HealthcareALL THYROXINE (T4) FREEon 21-25-0039Ucbj T4 [Mass/Vol]1.29 ng/dL0.76 - 1.46 ng/dL NOMS [facility] Medical CenterCLINISYNLONGWOOD HOSPITAL HealthcareCT ANKLE LT WO CONon 49-40-4570[place] [address] [place] Scan Report Signed Patient: REMI ZARCO MR#: [id number] : 1945 Acct:[id number] Age/Sex: 78 / M ADM Date: 11/18/23 Loc: CT Attending Dr: Lexi Hernandez D.P.M. Ordering Physician: Lexi Hernandez D.P.M. Date of Service: 11/18/23 Procedure(s): CT ankle LT wo con Accession Number(s): [id number] cc: Gil Gee M.D. [place] [address] Patient Name: REMI ZARCO MRN: [id number] date: 1945 Sex: M Assigned Patient Location: CT Current Patient Location: LAB Accession/Order Number: [id number] Exam Date: 11/18/2023 13:02 Report Date: 11/18/2023 13:43 At the request of: LEXI HERNANDEZ Procedure: CT ankle LT wo con EXAMINATION: [...] of bony bridging Electronically authenticated by: YOU BRAGA Date: 11/18/2023 13:43 Dictated By: You Braga M.D. Signed By: 11/18/23 1345 DD/ 1343 TD/TT: Technical Account Executive:TBHRadiology, Radiologist, MD - 11/18/2023 [place] [address] CT Scan Report Signed Patient: REMI ZARCO MR#: [id number] : 1945 Acct:[id number] Age/Sex: 78 / M ADM Date: 11/18/23 Loc: CT Attending Dr: Lexi Hernandez D.P.M. Ordering Physician: Lexi Hernandez D.P.M. Date of Service: 11/18/23 Procedure(s): CT ankle LT wo con Accession Number(s): [id number] cc: Gil Gee M.D. The [address] [address] Patient Name: REMI ZARCO MRN: [id number] date: 1945 Sex: M Assigned Patient Location: CT Current Patient Location: LAB Accession/Order Number: [id number] Exam Date: 11/18/2023 13:02 Report Date: 11/18/2023 13:43 At the request of: LEXI HERNANDEZ Procedure: CT ankle LT wo con EXAMINATION: [...] of bony bridging Electronically authenticated by: YOU BRAGA Date: 11/18/2023 13:43 Dictated By: You Braga M.D. Signed By: 11/18/23 1345 DD/ 1343 TD/TT: Technical Account Executive: STEPHEN HealthcareRadiology Study observation (narrative)[facility] HealthcareCT ANKLE LT WO CONOrdered By: Radiologist Radiology on 88-45-5423XWAZSoutheast [facility] Hospital Work Phone: [facility] LIVER PANELon 27-93-1278Vosvdwg [Mass/Vol]3.9 g/dL3.4 - 5.0 g/dLNOGA HealthcareALBUMIN GLOBULIN RATIO1.1NOMS HealthcareALP [Catalytic activity/Vol]56 U/L46 - 116 U/LNOMS HealthcareALT [Catalytic activity/Vol]22 U/L16 - 63 U/LNOMS HealthcareAST [Catalytic activity/Vol]18 U/L 15 - 37 U/LNOMS HealthcareBilirubin [Mass/Vol]0.7 mg/dL0.2 - 1.0 mg/dLNOGA HealthcareBilirubin.indirect [Mass/Vol]0.1 mg/dL0.0 - 0.2 mg/dLNOGA Healthcare Globulin (S) [Mass/Vol]3.7 g/dLNOMS HealthcareProtein [Mass/Vol]7.6 g/dL6.4 - 8.2 g/dLNOGA HealthcareNo Panel Informationon 12-69-5317Ghvxovtyhzszqp and review of laboratory resultsAbnormalNOGA HealthcareCLINISYNCNOMS HealthcarePOCT Protime / INRon 65-41-4493FUB Coag (PPP) [Relative time]2.3 {INR}Abnormal0.8 - 1.2ProMedica Health SystemInterpretation and review of laboratory results AbnormalProMedica Health SystemProVan Wert County Hospital SystemNo Panel Information Ordered By: Radiologist Radiology on 63-71-7554DFYT Healthcare Work Phone: No Panel Informationon 43-57-9132Zftbibbgp Study observation (narrative)NOMS HealthcareXR ANKLE LT MIN 3Von 94-89-7125AfjB[place], [place] [address] XRay Report Signed Patient: REMI ZARCO MR#: [id number] : 1945 Acct:[id number] Age/Sex: 78 / M ADM Date: 10/14/23 Loc: EC Attending Dr: Lexi Hernandez D.P.M. Ordering Physician: Lexi Hernandez D.P.M. Date of Service: 10/14/23 Procedure(s): XR ankle LT min 3V Accession Number(s): [id number] cc: Lexi Hernandez D.P.M.; Gil Gee M.D. 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 Lucency in the distal tibia from bone graft harvesting. SOFT TISSUES:Negative. No visible soft tissue swelling. EFFUSION:None visible. OTHER: Negative. 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 Signed By: 10/19/23710 DD/ 7 TD/TT: Technical Account Executive:TBHRadiology, Radiologist, MD - 10/19/2023 [place] [address] XRay Report Signed Patient: REMI ZARCO MR#: [id number] : 1945 Acct:[id number] Age/Sex: 78 / M ADM Date: 10/14/23 Loc: Attending Dr: Lexi Hernandez D.P.M. Ordering Physician: Lexi Hernandez D.P.M. Date of Service: 10/14/23 Procedure(s): XR ankle LT min 3V Accession Number(s): [id number] cc: Lexi Hernandez D.P.M.; Gil Gee M.D. The [place] [id number] Patient Name: REMI ZARCO MRN: [id number] date: 1945 Sex: M Assigned Patient Location: Current Patient Location: Accession/Order Number: [id number] Exam Date: 10/14/2023 13:10 Report Date: 10/19/2023 07:08 At the request of: LEXI HERNANDEZ Procedure: XR ankle LT min 3V PROCEDURE: [...] Moderate to severe diffuse degenerative changes with gugd-cq-pqla articulation of the tibiotalar joint. Lucency in the distal tibia from bone graft harvesting. SOFT TISSUES:Negative. No visible soft tissue swelling. EFFUSION:None visible. OTHER: Negative. 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 Signed By: 10/19/23710 DD/ TD/TT: Technical Account Executive: STEPHEN NavarroXR FOOT LT MIN 3Von 74-35-3441Aiz[place], [place] [address] XRay Report Signed Patient: REMI ZARCO MR#: [id number] : 1945 Acct:[id number] Age/Sex: 78 / M ADM Date: 10/14/23 Loc: EC Attending Dr: Lexi Hernandez D.P.M. Ordering Physician: Lexi Hernandez D.P.M. Date of Service: 10/14/23 Procedure(s): XR foot LT min 3V Accession Number(s): [id number] cc: Lexi Hernandez D.P.M.; Gil Gee M.D. [place] [address] Patient Name: REMI ZARCO MRN: [id number] date: 1945 Sex: M Assigned Patient Location: Current Patient Location: Accession/Order Number: [id number] Exam Date: 10/14/2023 13:10 Report Date: 10/19/2023 07:08 At the request of: LEXI HERNANDEZ Procedure: XR foot LT min 3V PROCEDURE: [...] Moderate to severe diffuse degenerative changes with xbzz-wz-gvna articulation of the tibiotalar joint. Lucency in the distal tibia from bone graft harvesting. SOFT TISSUES:Negative. No visible soft tissue swelling. EFFUSION:None visible. OTHER: Negative. 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 Signed By: 10/19/23710 DD/ TD/TT: Technical Account Executive:TBHRadiology, Radiologist, - 10/19/2023 [place] [address] XRay Report Signed Patient: REMI ZARCO MR#: [id number] : 1945 Acct:[id number] Age/Sex: 78 / M ADM Date: 10/14/23 Loc: EC Attending Dr: Lexi Hernandez D.P.M. Ordering Physician: Lexi Hernandez D.P.M. Date of Service: 10/14/23 Procedure(s): XR foot LT min 3V Accession Number(s): [id number] cc: Lexi Hernandez D.P.M.; Gil Gee M.D. [address] [address] Patient Name: REMI ZARCO MRN: [id number] date: 1945 Sex: M Assigned Patient Location: Current Patient Location: Accession/Order Number: [id number] Exam Date: 10/14/2023 13:10 Report Date: 10/19/2023 07:08 At the request of: LEXI HERNANDEZ Procedure: XR foot LT min 3V PROCEDURE: [...] Moderate to severe diffuse degenerative changes with gayc-np-mxch articulation of the tibiotalar joint. Lucency in the distal tibia from bone graft harvesting. SOFT TISSUES:Negative. No visible soft tissue swelling. EFFUSION:None visible. OTHER: Negative. 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 Signed By: 10/19/2311 DD/ 0708 TD/TT: Technical Account Executive: STEPHEN [facility] CenterPOCT Protime / INRon 01-80-1057OUX Coag (PPP) [Relative time]2.1 {INR}Abnormal0.8 - 1.2PCleveland Clinic Luther[facility] Hospital SystemInterpretation and review of laboratory resultsAbnormalProVA hospitalPOCT Protime / INRon 55-40-4142QDS Coag (PPP) [Relative time]2.6 {INR}Abnormal0.8 - 1.2PCleveland Clinic Luther[facility] Hospital SystemInterpretation and review of laboratory results AbnormalProWexner Medical Centerca Health SystemCT ANKLE LT WO CONon 12-95-0046[address] [address] [address] Scan Report Signed Patient: REMI ZARCO MR#: [id number] : 1945 Acct:[id number] Age/Sex: 77 / M ADM Date: 06/02/23 Loc: CT Attending Dr: Lexi Hernandez D.P.M. Ordering Physician: Lexi Hernandez D.P.M. Date of Service: 06/02/23 Procedure(s): CT ankle LT wo con Accession Number(s): [id number] cc: Gil Gee M.D. [place] [address] Patient Name: REMI ZARCO MRN: [id number] date: 1945 Sex: M Assigned Patient Location: CT Current Patient Location: CT Accession/Order Number: [id number] Exam Date: 06/02/2023 13:50 Report Date: 06/02/2023 15:18 At the request of: LEXI HERNANDEZ Procedure: CT ankle LT wo con EXAMINATION: [...] significant bony bridging Electronically authenticated by: YOU BRAGA Date: 06/02/2023 15:18 Dictated By: You Braga M.D. Signed By: 06/02/23 1521 DD/ 1518 TD/TT: Technical Account Executive:SHIMAHRadiology, Radiologist, - 06/02/2023 [place] [address] CT Scan Report Signed Patient: REMI ZARCO MR#: [id number] : 1945 Acct:[id number] Age/Sex: 77 / M ADM Date: 06/02/23 Loc: CT Attending Dr: Lexi Hernandez D.P.M. Ordering Physician: Lexi Hernandez D.P.M. Date of Service: 06/02/23 Procedure(s): CT ankle LT wo con Accession Number(s): [id number] cc: Gil Gee M.D. [place] [address] Patient Name: REMI ZARCO MRN: [facility]:[id number] date: 1945 Sex: M Assigned Patient Location: CT Current Patient Location: CT Accession/Order Number: [id number] Exam Date: 06/02/2023 13:50 Report Date: 06/02/2023 15:18 At the request of: LEXI HERNANDEZ Procedure: CT ankle LT wo con EXAMINATION: [...] significant bony bridging Electronically authenticated by: YOU BRAGA Date: 06/02/2023 15:18 Dictated By: You Braga M.D. Signed By: 06/02/23 1521 DD/ 1518 TD/TT: Technical Account Executive: STEPHEN HealthcareRadiology Study observation (narrative)STEPHEN HealthcareCT ANKLE LT WO CONOrdered By: Radiologist Radiology on 77-73-1752[facility] Work Phone: XR FOOT LT MIN 3Von 00-27-3843[place], [place] [address] XRay Report Signed Patient: REMI ZARCO MR#: [id number] : 1945 Acct:[id number] Age/Sex: 77 / M ADM Date: 05/27/23 Loc: EC Attending Dr: Lexi Hernandez D.P.M. Ordering Physician: Lexi Hernandez D.P.M. Date of Service: 05/27/23 Procedure(s): XR foot LT min 3V Accession Number(s): [id number] cc: Lexi Hernandez D.P.M.; Gil Gee M.D. [place] [address] Patient Name: REMI ZARCO MRN: [facility]:[id number] date: 1945 Sex: M Assigned Patient Location: Current Patient Location: Accession/Order Number: [id number] Exam Date: 05/27/2023 13:34 Report Date: 05/28/2023 07:09 At the request of: LEXI HERNANDEZ Procedure: XR foot LT min 3V PROCEDURE: [...] and multifocal degenerative changes. Electronically authenticated by: GERARDO AUGUSTIN Date: 05/28/2023 07:09 Dictated By: Gerardo Augustin M.D. Signed By: 05/28/23710 DD/ 8 TD/TT: Technical Account Executive:TBHRadiology, Radiologist, MD - 05/28/2023 [place] [address] XRay Report Signed Patient: REMI ZARCO MR#: [id number] : 1945 Acct:[id number] Age/Sex: 77 / M ADM Date: 05/27/23 Loc: EC Attending Dr: Lexi Hernandez D.P.M. Ordering Physician: Lexi Hernandez D.P.M. Date of Service: 05/27/23 Procedure(s): XR foot LT min 3V Accession Number(s): [id number] cc: Lexi Hernandez D.P.M.; Gil Gee M.D. [place] [address] Patient Name: REMI ZARCO MRN: [facility]:[id number] date: 1945 Sex: M Assigned Patient Location: Current Patient Location: Accession/Order Number: [id number] Exam Date: 05/27/2023 13:34 Report Date: 05/28/2023 07:09 At the request of: LEXI HERNANDEZ Procedure: XR foot LT min 3V PROCEDURE: [...] and multifocal degenerative changes. Electronically authenticated by: GERARDO AUGUSTIN Date: 05/28/2023 07:09 Dictated By: Gerardo Augustin M.D. Signed By: 05/28/23710 DD/ 8 TD/TT: Technical Account Executive: STEPHEN HealthcareRadiology Study observation (narrative)STEPHEN HealthcareXR FOOT LT MIN 3VOrdered By: Radiologist Radiology on 12-11-8508[facility] Work Phone: POCT Protime / INRon 23-94-5668RIS Coag (PPP) [Relative time]2.0 {INR}Abnormal0.8 - 1.2PC[facility] SystemInterpretation and review of laboratory resultsAbHaven Behavioral Hospital of PhiladelphiaPOCT Protime / INRon 91-19-8751UJK Coag (PPP) [Relative time]2.2 {INR} Abnormal0.8 - 1.2PCleveland [facility] Luther[facility] SystemInterpretation and review of laboratory resultsAbGundersen Lutheran [facility] SystemSEGMENTAL BLOOD PRESSUREon 63-07-9010Wod[place] [address] Cardiology Report Signed Patient: REMI ZARCO MR#: [id number] : 1945 Acct:[id number] Age/Sex: 77 / M ADM Date: 03/30/23 Loc: CARD Attending Dr: Atif Zhong D.P.M. Ordering Physician: Atif Zhong D.P.M. Date of Service: 03/30/23 Procedure(s): CA segmental UE or LE KIMBERLY Accession Number(s): [id number] cc: Atif Zhong D.P.M.; Gil Gee M.D. 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 Ordering Physician: Atif Zhong D.P.M. Date of Service: 03/30/23 Procedure(s): CA segmental UE or LE KIMBERLY Accession Number(s): [id number] cc: Atif Zhong D.P.M.; Gil Gee M.D. 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 Signed By: 03/31/23 0701 03/31/23 0701 DD/ 1352 TD/TT: Technical Account Executive: STEPHEN NavarroSEGMENTAL BLOOD PRESSUREOrdered By: Radiologist Radiology on 55-92-8766ONWG [facility] Work Phone: SEGMENTAL BLOOD PRESSUREon 63-92-1430Zjzinnooi Study observation (narrative)STEPHEN [facility] Medical CenterActivated partial thromboplastin time (aPTT) in platelet poor plasma by coagulation aOrdered By: YOU RAMIREZ on 81-40-4106hRLD Coag (PPP) [Time]30.8 s25.1-36.5FUniversity Hospitals Parma Medical Center Comment on above:A hematocrit value greater than 55% may lead to inaccurate results in coagulation testing. Patientshaving hematocrit values >55% require a special collection tube for coagulation studies. Please contact the laboratory at [phone] for redraw instructions.Coagulation Profileon 26-69-2071tANW Coag (Bld) [Time]30.8 mTkfpwc98.1-36.5FUniversity Hospitals Parma Medical CenterComment on above:Result Comment: A hematocrit value greater than 55% may lead to inaccurate results in coagulation testing. Patients having hematocrit values >55% require a special collection tube for coagulation studies. Please contact the laboratory at [phone] for redraw instructions. PERFORMED BY: [address] [address] PATHOLOGIST TOPPIECE CHOPPER QING BABB M.D.Performed By: #### PP #### [address] [address] USAINR Coag (PPP) [Relative time]1.2 {INR}NormalDetwiler Memorial HospitalComment on above:Result Comment: INR Therapeutic Range A) Pre- and [...] patients with mechanical heart valves: 3 - 4.5Performed By: #### PP #### [facility] [address] [place] [address] USAPT Coag (PPP) [Time]13.9 sHigh9.0-12.9Detwiler Memorial HospitalComment on above:Result Comment: A hematocrit value greater than 55% may lead to inaccurate results in coagulation testing. Patients having hematocrit values >55% require a special collection tube for coagulation studies. Please contact the laboratory at [phone] for redraw instructions.Performed By: #### PP #### [facility] [address] [place] [address] USAINR in Platelet poor plasma by Coagulation assayOrdered By: YOU RAMIREZ on 71-49-6413GOX Coag (PPP) [Relative time]1.2 {INR}[facility]wiler Memorial HospitalComment on above:INR Therapeutic Range A) Pre- and Peroperative OAT started two weeks before surgery. NOT HIP SURGERY: 1.5 - 2.5 HIP SURGERY: 2 - 3B) Primary and secondary prevention of venous THROMBOSIS: 2 - 3C) Active venous thrombosis, pulmonary embolismand prevention of recurrent venous thrombosis: 2 - 3D) Prevention of arterial thromboembolismincluding patients with mechanical heart valves: 3 - 4.5Lon 02-24-2023L Specimen: [id number] Received: 02/24/23 Status: MIK [place] Num: [id number] Spec Type: Surgical Subm Dr: Willie Ross DO Tissues: A Skin-Other than Cyst, tag, debridement or plastic repair (LT CHEEK) B Skin-Other than Cyst, tag, debridement or plastic repair (RT BAHAI) Procedures: HE/6, Gross/Micro L4/2, FS HE/6 Age/ Patient Sex Location Account Attending Physician Remi Zarco 77/M [place] [id number] Willie Ross DO SPEC NUM: [id number] RECD: 02/24/23 STATUS: MIK STERN NUM: [id number] ARIAN: 02/24/[address]: Willie Ross DO ENTERED: 02/24/23 HECTOR BLANCO: MARY ANNE TYPE: Surgical DEPT: S ORDERED: HE/6, Gross/Micro L4/2, FS HE/6 ORDERED: HE/6, Gross/Micro L4/2, FS Pathological Diagnosis [...] evidently negative for malignancy B. Skin, right catholic, excision: - Benign seborrheic keratosis of the mixed reticular, mildly pigmented, and the usual plaque types - Incidental occasional mild colonizations of dermatophyte spores of note - Adequately removed for assessment, and no evidence of malignancy, squamous dysplasia, or nevoid atypia identified Specimen: [id number] Received: 02/24/23 Status: MORGANRadha Haim Num: [id number] Spec Type: Surgical Subm Dr: Willie Ross DO Tissues: A Skin-Other than Cyst, tag, debridement or plastic repair (LT CHEEK) B Skin-Other than Cyst, tag, debridement or plastic repair (RT BAHAI) Procedures: HE/, Gross/Micro L4/2, FS Patient: Remi Zarco [id number] (Continued) Specimen: [id number] Received: 02/24/23 (Continued) Signed (signature on file) Oseas Lai MD 02/25/23 1518 Specimen: [id number] Received: 02/24/23 Status: MIK Stern Num: [id number] Spec Type: Surgical Subm Dr: Willie Ross DO Tissues: A Skin-Other than Cyst, tag, debridement or plastic repair (LT CHEEK) B Skin-Other than Cyst, tag, debridement or plastic repair (RT BAHAI) Procedures: HE/6, Gross/Lucina L4/2, FS HE/6 Patient: Remi Zarco [id number] (Continued) Specimen: [id number] Received: 02/24/23-1323 (Continued) Clinical Information A) basal [...] the patient's name, date of and right catholic skin lesion is a 1.7 x 0.7 [...] - 3:00 tip B (more content not included)...[facility] Prothrombin time (PT)Ordered By: YOU RAMIREZ on 45-81-5100MS Coag (PPP) [Time] 13.9 s9.0-12.9Detwiler Memorial HospitalComment on above:A hematocrit value greater than 55% may lead to inaccurate results in coagulation testing. Patientshaving hematocrit values >55% require a special collection tube for coagulation studies. Please contact the laboratory at [phone] for redraw instructions.XR FOOT LT MIN 3Von 65-28-6799Smq [address] [address] XRay Report Signed Patient: REMI ZARCO MR#: [id number] : 1945 Acct:[id number] Age/Sex: 77 / M ADM Date: 02/18/23 Loc: RAD Attending Dr: Lexi Hernandez D.P.M. Ordering Physician: Lexi Hernandez D.P.M. Date of Service: 02/18/23 Procedure(s): XR foot LT min 3V Accession Number(s): [id number] cc: Lexi Hernandez D.P.M.; Gil Gee M.D. [address] [place] [id number] Patient Name: REMI ZARCO MRN: [facility]:[id number] date: 1945 Sex: M Assigned Patient Location: [facility] Current Patient Location: Accession/Order Number: [id number] Exam Date: 02/18/2023 13:42 Report Date: 02/19/2023 23:15 At the request of: LEXI HERNANDEZ Procedure: XR foot LT min 3V EXAM: [...] M.D. Signed By: 02/19/232317 DD/ 14 TD/TT: Technical Account Executive:ANGLEadiolmay, Velma, - 02/19/2023 [place] [address] XRay Report Signed Patient: REMI ZARCO MR#: [id number] : 1945 Acct:[id number] Age/Sex: 77 / M ADM Date: 02/18/23 Loc: RAD Attending Dr: Lexi Hernandez D.P.M. Ordering Physician: Lexi Hernandez D.P.M. Date of Service: 02/18/23 Procedure(s): XR foot LT min 3V Accession Number(s): [id number] cc: Lexi Hernandez D.P.M.; Gil Gee M.D. [place] [address] Patient Name: REMI ZARCO MRN: [id number] date: 1945 Sex: M Assigned Patient Location: [facility] Current Patient Location: Accession/Order Number: [id number] Exam Date: 02/18/2023 13:42 Report Date: 02/19/2023 23:15 At the request of: LEXI HERNANDEZ Procedure: XR foot LT min 3V EXAM: [...] M.D. Signed By: 02/19/232317 DD/ 14 TD/TT: Technical Account Executive: STEPHEN HealthcareRadiology Study observation (narrative)NOMS HealthcareXR FOOT LT MIN 3VOrdered By: Radiologist Radiology on 07-91-9168HPYS [facility] Work Phone: basic Metabolic Panelon 09-88-7623Ncssf gap [Moles/Vol]8.9 mmol/LNormal6.0-15.0Detwiler Memorial HospitalComment on above:Performed By: #### CBC, BMP #### [place] [address] USACalcium [Mass/Vol]9.3 mg/dLNormal8.6-10.3FUniversity Hospitals Parma Medical CenterComment on above:Result Comment: PERFORMED BY: [place] [address] PATHOLOGIST TOPPIECE CHOPPER QING BABB M.D.Performed By: #### CBC, BMP #### [place] [address] USAChloride [Moles/Vol]105 mmol/OGplfda91-600MjxmqyhpnDetwiler Memorial HospitalComment on above:Performed By: #### CBC, BMP #### [place] [address] USACO2 [Moles/Vol]28.3 mmol/QGgtjrj60.0-31.0Detwiler Memorial HospitalComment on above:Performed By: #### CBC, BMP #### [place] [address] USACreatinine [Mass/Vol]1.19 mg/dLNormal0.70-1.30Detwiler Memorial HospitalComment on above:Performed By: #### CBC, BMP #### [facility] [address] [place] [address] USAGFR/1.73 sq M.predicted MDRD (S/P/Bld) [Vol rate/Area] mL/min/{1.73_m2}NormalDetwiler Memorial HospitalComment on above: Performed By: #### CBC, BMP #### [facility] [address] [place] [address] USAGlucose [Mass/Vol]93 mg/gQIiizke31-275XfnzzedfcDetwiler Memorial HospitalComment on above:Result Comment: Random Glucose Reference Range is dependent on time and content of last meal. Glucose of more than 200 mg/dL in a nonstressed, ambulatory subject supports the diagnosis of Diabetes Mellitus. ADA recommended reference rangePerformed By: #### CBC, BMP #### [facility] [address] [place] [address] USAPotassium [Moles/Vol]4.2 mmol/LNormal3.5-5.1FUniversity Hospitals Parma Medical CenterComment on above:Performed By: #### CBC, BMP #### [facility] [address] [place] [address] USASodium [Moles/Vol]138 mmol/UGmpqmp292-313BhlqwyihzDetwiler Memorial HospitalComment on above:Performed By: #### CBC, BMP #### [facility] [address] [place] [address] USAUrea nitrogen [Mass/Vol]21 mg/dLNormal7-25Detwiler Memorial HospitalComment on above:Performed By: #### CBC, BMP #### [facility] [address] [place] [address] USABasophils Auto (Bld) [#/Vol]Ordered By: Willie Ross on 00-48-0412Ayxvpweck (Bld) [#/Vol]0.1 10*3/uL0.0-0.2FUniversity Hospitals Parma Medical CenterBasophils/100 WBC Auto (Bld)Ordered By: Willie Ross on 02-10-2023 Basophils/100 WBC (Bld)1.2 %.Detwiler Memorial HospitalCalcium [Mass/volume] in Serum or PlasmaOrdered By: Willie Ross on 88-24-3659Vlrmtfr [Mass/Vol]9.3 mg/dL8.6-10.3FUniversity Hospitals Parma Medical CenterCarbon dioxide, total [Moles/volume] in Serum or PlasmaOrdered By: Willie Ross on 02-10-2023 CO2 [Moles/Vol]28.3 mmol/L21.0-31.0Detwiler Memorial HospitalChloride [Moles/volume] in Serum or PlasmaOrdered By: Willie Ross on 02-10-2023 Chloride [Moles/Vol]105 mmol/H80-146WtwpqaznyDetwiler Memorial HospitalComplete Blood Count Auto Diffon 55-61-6319Hszahywmx (Bld) [#/Vol]0.1 10*3/uLNormal 0.0-0.2FUniversity Hospitals Parma Medical CenterComment on above:Result Comment: PERFORMED BY: [place] [address] PATHOLOGIST TOPPIECE CHOPPER QING BABB M.D.Performed By: #### CBC, BMP #### [facility] [address] [place] [address] USABasophils/100 WBC (Bld)1.2 %Normal.Detwiler Memorial HospitalComment on above:Performed By: #### CBC, BMP #### [facility] [address] [place] [address] USAEosinophils (Bld) [#/Vol]0.2 10*3/uLNormal0.0-0.45 Detwiler Memorial HospitalComment on above:Performed By: #### CBC, BMP #### [facility] [address] [place] [address] USAEosinophils/100 WBC (Bld)3.7 %Normal.Detwiler Memorial HospitalComment on above:Performed By: #### CBC, BMP #### [facility] [address] [place] [address] USAErythrocyte distribution width (RBC) [Ratio]14.4 %Normal 12.0-14.8Detwiler Memorial HospitalComment on above:Performed By: #### CBC, BMP #### [facility] [address] [place] [address] USAHematocrit (Bld) [Volume fraction]37.2 %Low38.8-50.0 Detwiler Memorial HospitalComment on above:Performed By: #### CBC, BMP #### [place] [address] USAHemoglobin (Bld) [Mass/Vol]12.8 g/dLLow13.0-17.0Detwiler Memorial HospitalComment on above:Performed By: #### CBC, BMP #### [place] [address] USALymphocytes (Bld) [#/Vol]1.2 10*3/uLNormal1.00-4.8 Detwiler Memorial HospitalComment on above:Performed By: #### CBC, BMP #### [place] [address] USALymphocytes/100 WBC (Bld)23.4 %Normal.Detwiler Memorial HospitalComment on above:Performed By: #### CBC, BMP #### [place] [address] USAMCH (RBC) [Entitic mass]30.3 tdQjinhl55.5-35.2FUniversity Hospitals Parma Medical CenterComment on above:Performed By: #### CBC, BMP #### [place] [address] USAMCV (RBC) [Entitic vol]87.9 tKOfdyin53.5-101Detwiler Memorial HospitalComment on above:Performed By: #### CBC, BMP #### [place] [address] USAMean Corpuscular HGB Conc34.5 g/yMQpulyb70.5-35.6FUniversity Hospitals Parma Medical CenterComment on above:Performed By: #### CBC, BMP #### [place] [id number] USAMonocytes (Bld) [#/Vol]0.3 10*3/uLNormal0.0-0.8Detwiler Memorial HospitalComment on above:Performed By: #### CBC, BMP #### [facility] [address] [place] [address] USAMonocytes/100 WBC (Bld)6.8 %Normal.Detwiler Memorial HospitalComment on above:Performed By: #### CBC, BMP #### [facility] [address] [place] [address] USANeutrophils (Bld) [#/Vol]3.3 10*3/uLNormal1.8-7.7FUniversity Hospitals Parma Medical CenterComment on above:Performed By: #### CBC, BMP #### [place] [address] USANeutrophils/100 WBC (Bld)64.9 %Normal.Detwiler Memorial HospitalComment on above:Performed By: #### CBC, BMP #### [facility] [address] [place] [address] USANRBC%0.1 /100{WBC}Normal0-0.5FUniversity Hospitals Parma Medical CenterComment on above:Performed By: #### CBC, BMP #### [facility] [address] [place] [address] USAPlatelet mean volume (Bld) [Entitic vol]7.9 fLNormal 6.6-10.1FUniversity Hospitals Parma Medical CenterComment on above:Performed By: #### CBC, BMP #### [facility] [address] [place] [address] USAPlatelets (Bld) [#/Vol]203 10*3/gVZahtev605-105UqyrjxxjsDetwiler Memorial HospitalComment on above:Performed By: #### CBC, BMP #### [facility] [address] [place] [address] USARBC (Bld) [#/Vol]4.23 10*6/uLNormal3.90-5.60Detwiler Memorial HospitalComment on above:Performed By: #### CBC, BMP #### [facility] [address] [place] [address] USAWBC (Bld) [#/Vol]5.1 10*3/uLNormal4.1-10.5FUniversity Hospitals Parma Medical CenterComment on above:Performed By: #### CBC, BMP #### [facility] [address] [place] [address] USACreatinine [Mass/volume] in Serum or PlasmaOrdered By: Willie Ross on 72-08-8788Poaryirtog [Mass/Vol]1.19 mg/dL0.70-1.30Detwiler Memorial HospitalEosinophils Auto (Bld) [#/Vol]Ordered By: Willie Ross on 11-57-7747Fhqcekqwxnx (Bld) [#/Vol]0.2 10*3/uL0.0-0.45Detwiler Memorial HospitalEosinophils/100 WBC Auto (Bld)Ordered By: Willie Ross on 38-84-3514Vxcuiqkqlqs/100 WBC (Bld)3.7 %.[facility] Erythrocyte distribution width Auto (RBC) [Ratio]Ordered By: Willie Ross on 99-88-4610Zjdghazsxgt distribution width (RBC) [Ratio]14.4 %12.0-14.8Detwiler Memorial HospitalGlucose [Mass/volume] in Serum or PlasmaOrdered By: Willie Ross on 68-78-2184Corddny [Mass/Vol]93 mg/kS80-385YpetogtnrDetwiler Memorial HospitalComment on above:ADA recommended reference rangeRandom Glucose Reference Range is dependent on time and content of last meal. Glucose of more than 200 mg/dL in a nonstressed, ambulatory subject supports the diagnosisof Diabetes Mellitus.Hematocrit Auto (Bld) [Volume fraction]Ordered By: Willie Ross on 12-47-4353Qtovwdogyj (Bld) [Volume fraction]37.2 %38.8-50.0Detwiler Memorial HospitalHemoglobin [Mass/volume] in BloodOrdered By: Willie Ross on 62-35-8915Adxwcsppzt (Bld) [Mass/Vol]12.8 g/dL13.0-17.0Detwiler Memorial HospitalLeukocytes [#/volume] corrected for nucleated erythrocytes in Blood by Automated counOrdered By: Willie Ross on 02-10-2023 WBC corrected for nucl RBC Auto (Bld) [#/Vol]5.1 10*3/uL4.1-10.5FUniversity Hospitals Parma Medical CenterLymphocytes Auto (Bld) [#/Vol]Ordered By: Willie Ross on 88-22-4081Heumdzgjvkp (Bld) [#/Vol]1.2 10*3/uL1.00-4.8Detwiler Memorial HospitalLymphocytes/100 WBC Auto (Bld)Ordered By: Willie Ross on 67-66-5688Ncbcptlimeb/100 WBC (Bld)23.4 %.[facility] Auto (RBC) [Entitic mass]Ordered By: Willie Ross on 15-48-2391DBA (RBC) [Entitic mass]30.3 pg27.5-35.2FUniversity Hospitals Parma Medical CenterMCHC Auto (RBC) [Mass/Vol]Ordered By: Willie Ross on 68-22-5151QXKX (RBC) [Mass/Vol]34.5 g/dL32.5-35.6FUniversity Hospitals Parma Medical CenterMCV Auto (RBC) [Entitic vol] Ordered By: Willie Ross on 38-01-0620HOT (RBC) [Entitic vol]87.9 fL83.5-101 Detwiler Memorial HospitalMonocytes Auto (Bld) [#/Vol]Ordered By: Willie Ross on 06-31-8925Saztfpqqg (Bld) [#/Vol]0.3 10*3/uL0.0-0.8Detwiler Memorial HospitalMonocytes/100 WBC Auto (Bld)Ordered By: Willie Ross on 11-09-8873Vtuzdpopu/100 WBC (Bld)6.8 %.[facility] Neutrophils Auto (Bld) [#/Vol]Ordered By: Willie Ross on 02-10-2023 Neutrophils (Bld) [#/Vol]3.3 10*3/uL1.8-7.7FUniversity Hospitals Parma Medical Center Neutrophils/100 WBC Auto (Bld)Ordered By: Willie Ross on 02-10-2023 Neutrophils/100 WBC (Bld)64.9 %.Detwiler Memorial HospitalNo Panel InformationOrdered By: Willie Ross on 63-15-2457Qzmvtzwud GFR (CKD-EPI)> 60.0 mL/MinDetwiler Memorial HospitalPharmacy Creatinine Clearance (Chem N/AFUniversity Hospitals Parma Medical CenterNucleated erythrocytes [Presence] in Blood by Automated countOrdered By: Willie Ross on 59-68-4150Wfxgkwaqd RBC Auto Ql (Bld)0.1 /100{WBC}0-0.5FUniversity Hospitals Parma Medical CenterPlatelet mean volume Auto (Bld) [Entitic vol]Ordered By: Willie Ross on 63-05-4903Cyonllja mean volume (Bld) [Entitic vol]7.9 fL6.6-10.1FUniversity Hospitals Parma Medical Center Platelets Auto (Bld) [#/Vol]Ordered By: Willie Ross on 22-86-4286Daziknsci (Bld) [#/Vol]203 10*3/sW819-764ApfgeyyeoDetwiler Memorial HospitalPotassium [Moles/volume] in Serum or PlasmaOrdered By: Willie Ross on 02-10-2023 Potassium [Moles/Vol]4.2 mmol/L3.5-5.1FUniversity Hospitals Parma Medical CenterRBC Auto (Bld) [#/Vol]Ordered By: Willie Ross on 87-19-9937WMV (Bld) [#/Vol]4.23 10*6/uL3.90-5.60University Hospitals Parma Medical Centererum or plasma anion gap determinationOrdered By: Willie Ross on 72-13-0875Jcqgu gap [Moles/Vol]8.9 mmol/L6.0-15.0University Hospitals Parma Medical Centerodium [Moles/volume] in Serum or PlasmaOrdered By: Willie Ross on 23-73-8308Igmhbs [Moles/Vol]138 mmol/L 136-145Detwiler Memorial HospitalUrea nitrogen [Mass/volume] in Serum or PlasmaOrdered By: Willie Ross on 01-85-7576Shzz nitrogen [Mass/Vol]21 mg/dL 7-25Detwiler Memorial HospitalWBC Auto (Bld) [#/Vol]Ordered By: Willie Muellerkris on 90-67-3593SBR (Bld) [#/Vol]5.1 10*3/uL4.1-10.5FUniversity Hospitals Parma Medical CenterRESPIRATORY PANEL PLUSon 99-91-1747YepzxiddvoXli detectedNormalNOT DETECTEDThe [facility] Cross HospitalComment on above:Performed By: #### POCGLUC #### [facility] [address] [place] [address] [address] Saskia Neely ParapertusisNot detectedNormalNOT DETECTEDThe Green Cross HospitalComment on above:Performed By: #### POCGLUC #### [facility] [address] [place] [address] [address] Saskia Neely PertussisNot detectedNormalNOT DETECTEDThe [facility] on above:Performed By: #### POCGLUC #### [facility] [address] [place] [address] [address] Saskia LaiChlamydia PneumoniaeNot detectedNormalNOT DETECTEDThe [facility] Cross HospitalComment on above:Performed By: #### POCGLUC #### [facility] [address] [place] [address] [address] Saskia LaiCoronavirus 229ENot detectedNormalNOT DETECTEDThe [facility] Cross HospitalComholland hospital on above:Performed By: #### POCGLUC #### [facility] [address] [place] [address] [address] Saskia LaiCoronavirus NTY4Oul detectedNormalNOT DETECTEDThe [facility] Cross HospitalComment on above:Performed By: #### POCGLUC #### [facility] [address] [place] [address] [address] Saskia LaiCoronavirus RM80Uys detectedNormalNOT DETECTEDThe [facility] Cross HospitalComment on above:Performed By: #### POCGLUC #### [facility] [address] [place] [address] [address] Saskia LaiCoronavirus HU78Fvx detectedNormalNOT DETECTEDThe [facility] Cross HospitalComment on above:Performed By: #### POCGLUC #### [facility] [address] [place] [address] [address] Saskia Fairchild H1Not detectedNormalNOT DETECTEDThe [facility] Comment on above:Performed By: #### POCGLUC #### [facility] [address] [place] [address] [address] Saskia Fairchild H1 2009Not detectedNormalNOT DETECTEDThe [facility] Cross HospitalComment on above:Performed By: #### POCGLUC #### [facility] [address] [place] [address] [address] Saskia Fairchild H3Not detectedNormalNOT DETECTEDThe [facility] Comment on above:Performed By: #### POCGLUC #### [facility] [address] [place] [address] [address] Saskia López BNot detectedNormalNOT DETECTEDThe [facility] Comment on above:Performed By: #### POCGLUC #### [facility] [address] [place] [address] [address] Saskia GarcianeumovirusDetectedAbnormalNOT DETECTEDThe [facility] Comment on above:Performed By: #### POCGLUC #### [facility] [address] [address] [address] Saskia Davidson. PneumoniaeNot detectedNormalNOT DETECTEDThe [facility] Cross HospitalComment on above:Performed By: #### POCGLUC #### [facility] [address] [address] [address] Saskia Portillo 1Not detectedNormalNOT DETECTEDThe [facility]Com[facility] on above:Performed By: #### POCGLUC #### [facility] [address] [address] [address] Saskia Portillo 2Not detectedNormalNOT DETECTEDThe [facility]Com[facility] on above:Performed By: #### POCGLUC #### [facility] [address] [address] [address] Saskia Portillo 3Not detectedNormalNOT DETECTEDThe [facility] HospitalComment on above:Performed By: #### POCGLUC #### [facility] [address] [place] [address] Dr. Saskia Haywardenza 4Not detectedNormalNOT DETECTEDThe [facility]Com[facility] on above:Performed By: #### POCGLUC #### [facility] [address] [place] [address] Dr. Saskia LaiRhino/EnterovirusNot detectedNormalNOT DETECTEDThe [facility] HospitalComment on above:Performed By: #### POCGLUC #### [facility] [address] [place] [address] Dr. Saskia Sims Header 1RESPIRATORY PANEL: [facility]ESAden[facility] Comment on above:Performed By: #### POCGLUC #### [facility] [address] [place] [address] Dr. Saskia Sims Header 2RESPIRATORY PANEL: BACTERIAAdena Regional Medical CenterComment on above:Performed By: #### POCGLUC #### [facility] [address] [place] [address] Dr. Saskia GomezNot detectedNormalNOT DETECTEDThe [facility]Com[facility] on above:Performed By: #### POCGLUC #### [facility] [address] [place] [address] Dr. Saskia Gonzalez-CoV-2 (COVID-19) RNA TOSHA+probe Ql (Unsp spec)Not detected NormalNOT DETECTEDThe [facility]Comhol[facility] on above:Performed By: #### POCGLUC #### [facility] [address] [place] [address] Dr. Saskia Bhat AUTO DIFFon [id number] #0.0 103/ulNormal0.0-0.1The [facility] on above:Performed By: #### CBC #### [facility] [address] [place] [address] Dr. Saskia De Jesusphils/100 WBC (Bld)0.2 %Normal0.2-2.0[facility] Comment on above:Performed By: #### CBC #### [facility] [address] [place] [address] Dr. Saskia Wing #0.1 103/ulNormal0.0-0.7The [facility] HospitalComment on above: Performed By: #### CBC #### [facility] [address] [place] [address] Dr. Saskia Yañezosinophils/100 WBC (Bld)0.8 %Critically low0.9-7.0The [facility] HospitalComment on above:Performed By: #### CBC #### [facility] [address] [place] [address] Dr. Saskia Yañezrythrocyte distribution width (RBC) [Ratio]14.6 %Liktyq14.0-15.0 [facility] on above:Performed By: #### CBC #### [facility] [address] [place] [address] Dr. Saskia LaiHematocrit (Bld) [Volume fraction]32.5 %Critically low42.0-54.0 The [facility] HospitalComment on above:Performed By: #### CBC #### [facility] [address] [place] [address] Dr. Saskia LaiHemoglobin (Bld) [Mass/Vol]10.8 g/dLCritically low14.0-18.0The [facility] on above:Performed By: #### CBC #### [facility] [address] [place] [address] Dr. Saskia Zaldivar #0.02 10e3/ulNormal0.00-0.03The [facility] HospitalComment on above:Performed By: #### CBC #### [facility] [address] [place] [address] Dr. Saskia Zaldivar %0.2 %Normal0.0-0.5The [facility]Com[facility] on above: Performed By: #### CBC #### [facility] [address] [place] [address] Dr. Saskia YoonMPH #1.2 103/ulNormal1.2-3.8The [facility] HospitalComment on above:Performed By: #### CBC #### [facility] [address] [place] [address] Dr. Saskia Yoonmphocytes/100 WBC (Bld)12.3 %Critically low20.5-60.0The [facility] HospitalComment on above:Performed By: #### CBC #### [facility] [address] [place] [address] Dr. Saskia WellsUAL DIFF REQNONormalThe [facility] HospitalComment on above: Performed By: #### CBC #### [facility] [address] [place] [address] Dr. Saskia Conklin (RBC) [Entitic mass]29.8 oiPcwhaa62.9-34.0The [facility] HospitalComment on above:Performed By: #### CBC #### [facility] [address] [place] [address] Dr. Saskia Conklin (RBC) [Mass/Vol]33.2 g/rEMrnugj62.9-35.2The [facility] HospitalComment on above:Performed By: #### CBC #### [facility] [address] [place] [address] Dr. Saskia Conklin (RBC) [Entitic vol]89.8 dATxwdee88.0-94.0The [facility] HospitalComment on above:Performed By: #### CBC #### [facility] [address] [place] [address] Dr. Saskia Chisholm #0.7 103/ulNormal0.3-0.8The [facility] HospitalComment on above:Performed By: #### CBC #### [facility] [address] [place] [address] Dr. Saskia Perezocytes/100 WBC (Bld)7.1 %Normal1.7-12.0[facility] Comment on above:Performed By: #### CBC #### [facility] [address] [place] [address] Dr. Saskia Angulo #7.6 103/ulCritically high1.4-6.5The [facility] Comment on above:Performed By: #### CBC #### [facility] [address] [place] [address] Dr. Saskia LaiNeutrophils/100 WBC (Bld)79.4 %Critically high43.0-75.0The [facility] HospitalComment on above:Performed By: #### CBC #### [facility] [address] [place] [address] Dr. Saskia LaiPlatelet mean volume (Bld) [Entitic vol]10.5 fLNormal9.5-13.5The [facility] HospitalComment on above:Performed By: #### CBC #### [facility] [address] [place] [address] Dr. Saskia LaiPLT172 103/rhFcpckk510-556Mor [facility] HospitalComment on above: Performed By: #### CBC #### [facility] [address] [place] [address] Dr. Saskia LaiRBC3.62 106/ulCritically low4.70-6.10The [facility] HospitalComment on above:Performed By: #### CBC #### [facility] [address] [place] [address] Dr. Saskia LaiWBC9.6 103/ulNormal4.0-11.0The [facility] HospitalComment on above: Performed By: #### CBC #### [facility] [address] [place] [address] Dr. Saskia LaiCovid-19 PCR ([facility])on [id number]-CoV-2 (COVID-19) RNA TOSHA+probe Ql (Unsp spec)Not detectedNormalNOT DETECTEDThe [facility] Comment on above:Result Comment: When diagnostic testing is negative, the [...] for this test is supported by the [place] of Health and Human Service's declaration that circumstances exist to justify the emergency use of in vitro diagnostics for the detection and/or diagnosis of the virus that causes COVID-19. This EUA will remain in effect for the duration of the COVID-19 declaration justifying emergency of IVDs, unless it is terminated or revoked by the FDA (after which the test may no longer be used).Performed By: #### CVDTBH #### [facility] [address] [place] [address] Dr. Saskia LaiPROF CHEM 8 (BAS METB)on [id number] gap [Moles/Vol]10.6 mmol/LNormalWyandot Memorial HospitalComment on above:Performed By: #### CVDTBH #### [facility] [address] [place] [address] Dr. Saskia LaiCalcium [Mass/Vol]8.8 mg/dLNormal8.5-10.1[facility] Comment on above:Performed By: #### CVDTBH #### [facility] [address] [place] [address] Dr. Saskia LaiChloride [Moles/Vol]104 mmol/HZkdxnj22-851AxlWyandot Memorial Hospital Comment on above:Performed By: #### CVDTBH #### [facility] [address] [place] [address] Dr. Saskia LaiCO2 [Moles/Vol]26.8 mmol/JSzjtiq04.0-32.0[facility] Comment on above:Performed By: #### CVDTBH #### [facility] [address] [place] [address] Dr. Saskia LaiCreatinine [Mass/Vol]1.18 mg/dLNormal0.70-1.30The [facility] HospitalComment on above:Performed By: #### CVDTBH #### [facility] [address] [place] [address] Dr. Kruger ChangEGFR-AF MACANESE>60Normal>=60The [facility] HospitalComment on above:Performed By: #### CVDTBH #### [facility] [address] [address] [address] Saskia YañezGFR-NON AF VMLVZYPE25 mL/min/1.75t7Smpizd>=60The [facility] HospitalComment on above:Performed By: #### CVDTBH #### [facility] [address] [address] [address] Saskia LaiGlucose [Mass/Vol]102 mg/sMKazfzk95-436Kqf [facility] Comment on above:Performed By: #### CVDTBH #### [facility] [address] [address] [address] Saskia LaiPotassium [Moles/Vol]4.4 mmol/LNormal3.5-5.1[facility] Comment on above:Performed By: #### CVDTBH #### [facility] [address] [place] [address] Dr. Saskia LaiSodium [Moles/Vol]137 mmol/SDyszce888-296Lzo [facility] Comment on above:Performed By: #### CVDTBH #### [facility] [address] [address] [address] Saskia LaiUrea nitrogen [Mass/Vol]32.0 mg/dLCritically high7.0-18.0[facility] HospitalComment on above:Performed By: #### CVDTBH #### [facility] [address] [place] [address] Dr. Saskia Stanford nitrogen/Creatinine [Mass ratio]27.1 mg/mgNoOhioHealth Doctors HospitalComment on above:Performed By: #### CVDTBH #### [facility] [address] [place] [address] Dr. Saskia Puentes 80-30-1284QGY Coag (PPP) [Relative time]1.28 {INR} NormalThe [facility] HospitalComment on above:Performed By: #### CVDTBH #### [facility] [address] [place] [address] Dr. Saskia Lerma GUIDELINESSEE BELOWAdena Regional Medical CenterComment on above:Result Comment: DESIRED INR: 2.0 - 3.0 CONDITIONS NOT LISTED BELOW 2.5 - 3.5 FOR PROSTHETIC HEART VALVE REPLACEMENT 2.5 - 3.5 RECURRENT THROMBOSIS Performed By: #### CVDTBH #### [facility] [address] [place] [address] Dr. Saskia Navarro Coag (PPP) [Time]13.6 sCritically high9.0-11.6The [facility] HospitalComment on above:Performed By: #### CVDTBH #### [facility] [address] [place] [address] Dr. Saskia Bhat AUTO DIFFon [id number] #0.0 103/ulNormal0.0-0.1The [facility] HospitalComment on above:Performed By: #### POCGLUC #### [facility] [address] [place] [address] Dr. Saskia LaiBasophils/100 WBC (Bld)0.1 %Critically low0.2-2.0[facility] HospitalComment on above:Performed By: #### POCGLUC #### [facility] [address] [place] [address] Dr. Saskia Wing #0.0 103/ulNormal0.0-0.7The [facility] HospitalComment on above: Performed By: #### POCGLUC #### [facility] [address] [place] [address] Dr. Saskia Yañezosinophils/100 WBC (Bld)0.0 %Critically low0.9-7.0The [facility] HospitalComment on above:Performed By: #### POCGLUC #### [facility] [address] [place] [address] Dr. Saskia Yañezrythrocyte distribution width (RBC) [Ratio]14.5 %Moqoxy14.0-15.0 [facility] Hospitalment on above:Performed By: #### POCGLUC #### [facility] [address] [place] [address] Dr. Saskia LaiHematocrit (Bld) [Volume fraction]34.4 %Critically low42.0-54.0 [facility] HospitalComment on above:Performed By: #### POCGLUC #### [facility] [address] [address] [address] Saskia LaiHemoglobin (Bld) [Mass/Vol]11.6 g/dLCritically low14.0-18.0The [facility] HospitalComment on above:Performed By: #### POCGLUC #### [facility] [address] [place] [address] Dr. Saskia Zaldivar #0.05 10e3/ulCritically high0.00-0.03The [facility] Comment on above:Performed By: #### POCGLUC #### [facility] [address] [place] [address] Dr. Saskia Zaldivar %0.3 %Normal0.0-0.5The [facility] HospitalComment on above: Performed By: #### POCGLUC #### [facility] [address] [place] [address] Dr. Saskia Angeles #0.9 103/ulCritically low1.2-3.8The [facility] Comment on above:Performed By: #### POCGLUC #### [facility] [address] [place] [address] Dr. Saskia Eliashocytes/100 WBC (Bld)6.2 %Critically low20.5-60.0The [facility] HospitalComment on above:Performed By: #### POCGLUC #### [facility] [address] [place] [address] Dr. Saskia Young DIFF REQNONormalThe [facility] HospitalComment on above: Performed By: #### POCGLUC #### [facility] [address] [place] [address] Dr. Saskia Reed (RBC) [Entitic mass]29.7 dyMntxuc37.9-34.0The [facility] HospitalComment on above:Performed By: #### POCGLUC #### [facility] [address] [place] [address] Dr. Saskia Conklin (RBC) [Mass/Vol]33.7 g/sHFmyulg45.9-35.2The [facility] HospitalComment on above:Performed By: #### POCGLUC #### [facility] [address] [place] [address] Dr. Saskia Vasquez (RBC) [Entitic vol]88.0 qDWmkius92.0-94.0The [facility] HospitalComment on above:Performed By: #### POCGLUC #### [facility] [address] [place] [address] Dr. Saskia Chisholm #1.0 103/ulCritically high0.3-0.8The [facility] Comment on above:Performed By: #### POCGLUC #### [facility] [address] [place] [address] Dr. Saskia Perezocytes/100 WBC (Bld)6.5 %Normal1.7-12.0[facility] Comment on above:Performed By: #### POCGLUC #### [facility] [address] [place] [address] Dr. Saskia Angulo #12.9 103/ulCritically high1.4-6.5The [facility] Comment on above:Performed By: #### POCGLUC #### [facility] [address] [place] [address] Dr. Saskia Olmosophils/100 WBC (Bld)86.9 %Critically high43.0-75.0The [facility] HospitalComment on above:Performed By: #### POCGLUC #### [facility] [address] [place] [address] Dr. Saskia Martins mean volume (Bld) [Entitic vol]10.3 fLNormal9.5-13.5The [facility] HospitalComment on above:Performed By: #### POCGLUC #### [facility] [address] [place] [address] Dr. Saskia MelvinT208 103/qyCxhauh638-953Urw [facility] HospitalComment on above: Performed By: #### POCGLUC #### [facility] [address] [place] [address] Dr. Saskia LaiRBC3.91 106/ulCritically low4.70-6.10The [facility] HospitalComment on above:Performed By: #### POCGLUC #### [facility] [address] [address] [address] Saskia LaiWBC14.9 103/ulCritically high4.0-11.0The [facility] HospitalComment on above:Performed By: #### POCGLUC #### [facility] [address] [address] [address] Saskia LaiPROF CHEM 8 (BAS METB)on [id number] gap [Moles/Vol]10.7 mmol/LNormalThe [facility] HospitalComment on above:Performed By: #### BMP #### [facility] [address] [place] [address] Dr. Saskia LaiCalcium [Mass/Vol]8.9 mg/dLNormal8.5-10.1The [facility] Comment on above:Performed By: #### BMP #### [facility] [address] [place] [address] Dr. Saskia LaiChloride [Moles/Vol]101 mmol/CDbtcpf45-100Nxc [facility] Comment on above:Performed By: #### BMP #### [facility] [address] [place] [address] Dr. Saskia LaiCO2 [Moles/Vol]27.9 mmol/LWnmefd35.0-32.0The [facility] Comment on above:Performed By: #### BMP #### [facility] [address] [place] [address] Dr. Saskia LaiCreatinine [Mass/Vol]1.17 mg/dLNormal0.70-1.30The [facility] HospitalComment on above:Performed By: #### BMP #### [facility] [address] [place] [address] Dr. Kruger ChangEGFR-AF MACANESE>60Normal>=60The [facility] HospitalComment on above:Performed By: #### BMP #### [facility] [address] [address] [address] Saskia YañezGFR-NON AF MACANESE>60Normal>=60The [facility] HospitalComment on above:Performed By: #### BMP #### [facility] [address] [address] [address] Saskia LaiGlucose [Mass/Vol]121 mg/dLCritically pgxo13-217Tir [facility] HospitalComment on above:Performed By: #### BMP #### [facility] [address] [address] [address] Saskia LaiPotassium [Moles/Vol]4.5 mmol/LNormal3.5-5.1The [facility] Comment on above:Performed By: #### BMP #### [facility] [address] [place] [address] Dr. Saskia LaiSodium [Moles/Vol]135 mmol/LCritically auj950-890Xwf [facility] HospitalComment on above:Performed By: #### BMP #### [facility] [address] [place] [address] Dr. Saskia LaiUrea nitrogen [Mass/Vol]30.0 mg/dLCritically high7.0-18.0The [facility] HospitalComment on above:Performed By: #### BMP #### [facility] [address] [place] [address] Dr. Saskia Stanford nitrogen/Creatinine [Mass ratio]25.6 mg/mgNoOhioHealth Doctors HospitalComment on above:Performed By: #### BMP #### [facility] [address] [place] [address] Dr. Saskia LaiPROTIMEon [id number] Coag (PPP) [Relative time]1.21 {INR} NormalThe [facility] HospitalComment on above:Performed By: #### PT #### [facility] [address] [place] [address] Dr. Saskia Lerma GUIDELINESSEE BELOWAdena Regional Medical CenterComment on above:Result Comment: DESIRED INR: 2.0 - 3.0 CONDITIONS NOT LISTED BELOW 2.5 - 3.5 FOR PROSTHETIC HEART VALVE REPLACEMENT 2.5 - 3.5 RECURRENT THROMBOSIS Performed By: #### PT #### [facility] [address] [place] [address] Dr. Saskia Navarro Coag (PPP) [Time]12.9 sCritically high9.0-11.6The [facility] HospitalComment on above:Performed By: #### PT #### [facility] [address] [place] [address] Dr. Saskia LaiWELLSTAR [facility] GLUCOSEon 17-17-0104Uhruflr [Mass/Vol]114 mg/dL Critically vtgk39-880FjrWyandot Memorial HospitalComment on above:Performed By: #### POCGLUC #### [facility] [address] [place] [address] Dr. Saskia LaiGlucose [Mass/Vol]104 mg/nUKenhyf54-846LomWyandot Memorial Hospital Comment on above:Performed By: #### POCGLUC #### [facility] [address] [place] [address] Dr. Saskia LaiPROTIMEon 84-99-1096SDR Coag (PPP) [Relative time]1.19 {INR} NormalWyandot Memorial HospitalComholland hospital on above:Performed By: #### PT #### [facility] [address] [place] [address] Dr. Saskia Lerma GUIDELINESSEE BELOWAdena Regional Medical CenterComment on above:Result Comment: DESIRED INR: 2.0 - 3.0 CONDITIONS NOT LISTED BELOW 2.5 - 3.5 FOR PROSTHETIC HEART VALVE REPLACEMENT 2.5 - 3.5 RECURRENT THROMBOSIS Performed By: #### PT #### [facility] [address] [place] [address] Dr. Saskia Navarro Coag (PPP) [Time]12.7 sCritically high9.0-11.6The [facility] HospitalComment on above:Performed By: #### PT #### [facility] [address] [place] [address] Dr. Saskia LaiCovid-19 PCR ([facility])on 67-75-3220XJRT-CoV-2 (COVID-19) RNA TOSHA+probe Ql (Unsp spec)Not detectedNormalNOT DETECTEDThe [facility] Comment on above:Result Comment: This test is not yet approved or cleared by the [place] FDA. When there are no FDA-approved or cleared tests available, and other criteria are met, FDA can make tests available under an emergency access mechanism called an Emergency Use Authorization (EUA). The EUA for this test is supported by the [place] of Health and Human Service's (HHS's) declaration that circumstances exist to justify the emergency use of in vitro diagnostics for the detection and/or diagnosis of the virus that causes COVID- 19. This EUA will remain in effect (meaning [...] of clinical signs and symptoms consistent with SARS-CoV-2.Performed By: #### CVDTBH #### [facility] [address] [place] [address] Dr. Saskia Bhat AUTO DIFFon [id number] #0.1 103/ulNormal0.0-0.1[facility] HospitalComment on above:Performed By: #### CVDTBH #### [facility] [address] [place] [address] Dr. Saskia LaiBasophils/100 WBC (Bld)1.2 %Normal0.2-2.0[facility] Comment on above:Performed By: #### CVDTBH #### [facility] [address] [place] [address] Dr. Saskia Wing #0.2 103/ulNormal0.0-0.7The [facility] HospitalComment on above: Performed By: #### CVDTBH #### [facility] [address] [place] [address] Dr. Saskia Yañezosinophils/100 WBC (Bld)2.8 %Normal0.9-7.0[facility] Comment on above:Performed By: #### CVDTBH #### [facility] [address] [place] [address] Dr. Saskia Yañezrythrocyte distribution width (RBC) [Ratio]14.4 %Tablpm76.0-15.0 [facility] HospitalComment on above:Performed By: #### CVDTBH #### [facility] [address] [place] [address] Dr. Saskia LaiHematocrit (Bld) [Volume fraction]40.5 %Critically low42.0-54.0 The [facility] HospitalComment on above:Performed By: #### CVDTBH #### [facility] [address] [place] [address] Dr. Saskia LaiHemoglobin (Bld) [Mass/Vol]13.4 g/dLCritically low14.0-18.0[facility] HospitalComment on above:Performed By: #### CVDTBH #### [facility] [address] [place] [address] Dr. Saskia Zaldivar #0.00 10e3/ulNormal0.00-0.03The [facility] HospitalComment on above:Performed By: #### CVDTBH #### [facility] [address] [place] [address] Dr. Saskia Zaldivar %0.0 %Normal0.0-0.5ThProMedica Bay Park HospitalComment on above: Performed By: #### CVDTBH #### [facility] [address] [place] [address] Dr. Saskia Angeles #1.1 103/ulCritically low1.2-3.8The [facility] Comment on above:Performed By: #### CVDTBH #### [facility] [address] [place] [address] Dr. Saskia Eliashocytes/100 WBC (Bld)19.5 %Critically low20.5-60.0[facility] HospitalComment on above:Performed By: #### CVDTBH #### [facility] [address] [place] [address] Dr. Yilan ChangMANUAL DIFF REQNONormalThe [facility] HospitalComment on above: Performed By: #### CVDTBH #### [facility] [address] [place] [address] Dr. Saskia Conklin (RBC) [Entitic mass]29.6 rlJvibyc81.9-34.0The [facility] HospitalComment on above:Performed By: #### CVDTBH #### [facility] [address] [place] [address] Dr. Saskia Conklin (RBC) [Mass/Vol]33.1 g/iGUcsxzy77.9-35.2The [facility] HospitalComment on above:Performed By: #### CVDTBH #### [facility] [address] [place] [address] Dr. Saskia Conklin (RBC) [Entitic vol]89.4 lRGzjiik98.0-94.0The [facility] HospitalComment on above:Performed By: #### CVDTBH #### [facility] [address] [place] [address] Dr. Saskia Chisholm #0.4 103/ulNormal0.3-0.8The [facility] HospitalComment on above:Performed By: #### CVDTBH #### [facility] [address] [place] [address] Dr. Saskia Perezocytes/100 WBC (Bld)6.7 %Normal1.7-12.0The [facility] Comment on above:Performed By: #### CVDTBH #### [facility] [address] [place] [address] Dr. Saskia Angulo #4.0 103/ulNormal1.4-6.5The [facility] HospitalComment on above:Performed By: #### CVDTBH #### [facility] [address] [place] [address] Dr. Saskia Walkerutrophils/100 WBC (Bld)69.8 %Blcsat66.0-75.0The [facility] Cross HospitalComment on above:Performed By: #### CVDTBH #### [facility] [address] [address] [address] Saskia LaiPlatelet mean volume (Bld) [Entitic vol]9.9 fLNormal9.5-13.5The [facility] HospitalComment on above:Performed By: #### CVDTBH #### [facility] [address] [address] [address] Saskia LaiPLT228 103/qgVfmxyp604-086Hlm [facility] HospitalComment on above: Performed By: #### CVDTBH #### [facility] [address] [place] [address] Dr. Saskia LaiRBC4.53 106/ulCritically low4.70-6.10The [facility] HospitalComment on above:Performed By: #### CVDTBH #### [facility] [address] [place] [address] Dr. Saskia LaiWBC5.7 103/ulNormal4.0-11.0The [facility] HospitalComment on above: Performed By: #### CVDTBH #### [facility] [address] [place] [address] Dr. Saskia LaiPROF CHEM 8 (BAS METB)on 39-08-5057Euwus gap [Moles/Vol]11.0 mmol/LNormalWyandot Memorial HospitalComment on above:Performed By: #### POCGLUC #### [facility] [address] [place] [address] Dr. Saskia LaiCalcium [Mass/Vol]9.3 mg/dLNormal8.5-10.1[facility] Comment on above:Performed By: #### POCGLUC #### [facility] [address] [place] [address] Dr. Saskia LaiChloride [Moles/Vol]102 mmol/NUsjgel55-229Gjg [facility] Comment on above:Performed By: #### POCGLUC #### [facility] [address] [place] [address] Dr. Saskia LaiCO2 [Moles/Vol]29.5 mmol/LNtfaoa32.0-32.0[facility] Comment on above:Performed By: #### POCGLUC #### [facility] [address] [address] [address] Saskia LaiCreatinine [Mass/Vol]0.93 mg/dLNormal0.70-1.30The [facility] HospitalComment on above:Performed By: #### POCGLUC #### [facility] [address] [address] [address] Saskia YañezGFR-AF MACANESE>60Normal>=60The [facility] Cross HospitalComment on above:Performed By: #### POCGLUC #### [facility] [address] [address] [address] Saskia YañezGFR-NON AF MACANESE>60Normal>=60The [facility] HospitalComment on above:Performed By: #### POCGLUC #### [facility] [address] [address] [address] Saskia LaiGlucose [Mass/Vol]97 mg/sOXlevqx28-225Hqr [facility] Comment on above:Performed By: #### POCGLUC #### [facility] [address] [address] [address] Saskia LaiPotassium [Moles/Vol]4.5 mmol/LNormal3.5-5.1[facility] Comment on above:Performed By: #### POCGLUC #### [facility] [address] [address] [address] Saskia LaiSodium [Moles/Vol]138 mmol/GIarqul924-176Wml [facility] Comment on above:Performed By: #### POCGLUC #### [facility] [address] [address] [address] Saskia LaiUrea nitrogen [Mass/Vol]15.0 mg/dLNormal7.0-18.0The [facility] HospitalComment on above:Performed By: #### POCGLUC #### [facility] [address] [address] [address] Saskia LaiUrea nitrogen/Creatinine [Mass ratio]16.1 mg/mgNormalThe [facility] Cross HospitalComment on above:Performed By: #### POCGLUC #### [facility] [address] [place] [address] Dr. Saskia Puentes 03-86-0716YLS Coag (PPP) [Relative time]2.00 {INR} NormalThe [facility] on above:Performed By: #### PT, PTT #### [facility] [address] [place] [address] Dr. Saskia Lerma GUIDELINESSEE BELOWNormalThProMedica Bay Park HospitalComment on above:Result Comment: DESIRED INR: 2.0 - 3.0 CONDITIONS NOT LISTED BELOW 2.5 - 3.5 FOR PROSTHETIC HEART VALVE REPLACEMENT 2.5 - 3.5 RECURRENT THROMBOSIS Performed By: #### PT, PTT #### [facility] [address] [place] [address] Dr. Saskia LaiPT Coag (PPP) [Time]20.6 sCritically high9.0-11.6The [facility] HospitalComholland hospital on above:Performed By: #### PT, PTT #### [facility] [address] [place] [address] Dr. Saskia Mejia 89-19-6645vRNL Coag (Bld) [Time]33.5 kRmyydd69.3-36.2The [facility] on above:Performed By: #### PT, PTT #### [facility] [address] [place] [address] Dr. Saskia LaiCT CHEST W CONon 66-11-6975KX CHEST W CONEXAMINATION: CT CHEST W CON HISTORY: Lung field abnormal COMPARISON: [...] Electronically authenticated by: GERARDO AUGUSTIN Date: 2021-10-23 17:42[facility] CenterPROF CHEM 8 (BAS METB)on 52-84-0400Ovxir gap [Moles/Vol]14.4 mmol/LNormalWyandot Memorial HospitalComment on above:Performed By: #### POCGLUC #### [facility] [address] [address] [address] Saskia LaiCalcium [Mass/Vol]9.1 mg/dLNormal8.5-10.1[facility] Comment on above:Performed By: #### POCGLUC #### [facility] [address] [address] [address] Saskia LaiChloride [Moles/Vol]102 mmol/YHvplzw39-511MxxWyandot Memorial Hospital Comment on above:Performed By: #### POCGLUC #### [facility] [address] [address] [address] Saskia LaiCO2 [Moles/Vol]25.1 mmol/YXgkkpt96.0-32.0[facility] Comment on above:Performed By: #### POCGLUC #### [facility] [address] [address] [address] Saskia LaiCreatinine [Mass/Vol]1.13 mg/dLNormal0.70-1.30The [facility] HospitalComment on above:Performed By: #### POCGLUC #### [facility] [address] [address] [address] Kruger ChangEGFR-AF MACANESE>60Normal>=60The [facility] Cross HospitalComment on above:Performed By: #### POCGLUC #### [facility] [address] [address] [address] Saskia YañezGFR-NON AF MACANESE>60Normal>=60The [facility] HospitalComment on above:Performed By: #### POCGLUC #### [facility] [address] [address] [address] Saskia LaiGlucose [Mass/Vol]82 mg/oVVsdcqe88-642Ycq [facility] Comment on above:Performed By: #### POCGLUC #### [facility] [address] [address] [address] Saskia LaiPotassium [Moles/Vol]4.5 mmol/LNormal3.5-5.1[facility] Comment on above:Performed By: #### POCGLUC #### [facility] [address] [address] [address] Saskia LaiSodium [Moles/Vol]137 mmol/CMealbs111-540Lnw [facility] Comment on above:Performed By: #### POCGLUC #### [facility] [address] [address] [address] Saskia Stanford nitrogen [Mass/Vol]19.0 mg/dLCritically high7.0-18.0The [facility] HospitalComment on above:Performed By: #### POCGLUC #### [facility] [address] [address] [address] Saskia LaiUrea nitrogen/Creatinine [Mass ratio]16.8 mg/mgNormalThe [facility] Cross HospitalComment on above:Performed By: #### POCGLUC #### [facility] [address] [address] [address] Saskia Ley 75-53-9193INLKJvpvxx Visit (LOORRM) REMI ZARCO ([id number]) 1945 Date Time Provider Department 08/12/21 2:45 [...] Visit Diagnoses:Osteonecrosis (HCC) [M87.9] (more content not included)...[facility]Access [facility] DaytonCNPNon 08-01-2021 CNPNTelephone (AMANDA) REMI ZARCO ([id number]) 1945 M Date Time Provider Department 08/01/21 DARREL ALMENDAREZ During your visit today, we recorded the following information about you: Abilio Diaz 08/01/2021 8:47 AM Signed Pt called, wanted to know if Dr Almendarez or nurse could reach out to further advise of treatment plan. Pt states he was to hear back shortly after visit on 07/10. Abilio Garza Pss Lin Saleem, OSCAR 08/06/2021 1:59 PM Addendum Called and [...] Fully Assessed Reason for Visit: Patient Question [7125] Patient Update [5224] Prescriptions as of 08/06/2021 - warfarin (COUMADIN) [...] billy*07/10/2021 Encounter Status:Closed by ABILIO BULLARD on 08/01/21NoMadison Health [id number] Visit (AMANDA) REMI ZARCO ([id number]) 1945 Date Time Provider Department 07/10/21 1:00 [...] standing and walking. Previously seen by Dr. Suacedo. Additional HPI: LEFT foot and ankle pain [...] Almendarez DPM Referring Pro (more content not included)...NormalAccess Hospital DaytonXR ANKLE 3V AP/LAT/OBL LTon 18-23-6633BI ANKLE 3V AP/LAT/OBL LT* * *Final Report* * * DATE OF [...] enthesophyte is seen IMPRESSION: Please see result Technical Account Executive: PSCB Transcribe Date/Time: Jul 10 2021 1:13P Dictated by : MIRNA WRIGHT MD This examination was interpreted and the report reviewed and electronically signed by: MIRNA WRIGHT MD on Jul 10 2021 1:14PM EST [id number] HealthcareXR ANKLE GENERAL 3V AP/LAT/OBL LEFTon 91-89-0773Ctnrocmfx ClinicXR FOOT 3V AP/LAT/OBL LTon 22-64-0041AM FOOT 3V AP/LAT/OBL LT* * *Final Report* * * DATE OF [...] formation is seen IMPRESSION: Please see result Technical Account Executive: PSCB Transcribe Date/Time: Jul 12 2021 11:11A Dictated by : MIRNA WRIGHT MD This examination was interpreted and the report reviewed and electronically signed by: MIRNA WRIGHT MD on Jul 12 2021 11:12AM EST [id number] HealthcareCNOVon 20-28-4799UDTF Office Visit (LOORRM) REMI ZARCO ([id number]) 1945 M Date Time Provider Department 06/14/21 1:30 PM MANUEL SAUCEDO During your visit today, we recorded the following information about you: Manuel Saucedo DPM 06/14/2021 1:59 PM Signed [facility] Department of Orthopedics [facility] Orthopedic Surgery Name: Remi Zarco [...] brought in radiographs and a CT from [place] which demonstrate a valgus tilt of the [...] he does not want to drive to [facility]. Suggested he see Dr. Almendarez to [...] Other Visit Diagnoses:Ankle instabilit (more content not included)...[facility] Vital Signs Date TimeVital SignValuePerforming UxeslichjYlxwgahy72-60-5957 09:52-0400Body omthuf225.9 [facility] Hospitalparis Winn APRN-VOICE ENGINEER Work Phone: [phone] AppsSt. [facility] Hospital1DayMakeoverwa GremlnCvpttz75-62-9712 09:52-0400Body mass index (BMI) [Ratio]29.02 kg/d4OfabqSuman Winn APRN-VOICE ENGINEER Work Phone: [phone] AppsSt. Alb[facility] Hospital1DayMakeoverwa GremlnHxakxp72-07-4058 09:52-0400Body .07 kgSuman Winn APRN-VOICE ENGINEER Work Phone: [phone] AppsSt. Alb[facility] Hospital1DayMakeoverwa [employer] Ihjret44-80-5080 09:52-0400Diastolic blood jkfoisak21 mm[Hg]Suman Winn APRN-VOICE ENGINEER Work Phone: [phone] AppsSt. Alb[facility] Hospital1DayMakeoverwa GremlnZnpepp16-95-0868 09:52-0400Heart rate 81 /minEparis Winn APRN-VOICE ENGINEER Work Phone: [phone] AppsSt. Alb[facility] Hospital1DayMakeoverwa GremlnSpewbm64-02-1035 09:52-9490NtG8% (BldA) [Mass fraction]98 %Suman Winn APRN-VOICE ENGINEER Work Phone: [phone] AppsTr[facility] [employer] Bpjxox86-63-9823 09:52-0400Systolic blood lwzdzcys488 mm[Hg]Suman Winn APRN-VOICE ENGINEER Work Phone: [phone] AppsSt. [facility] Hospital1DayMakeoverwa [employer] Tutumk69-74-8877 08:25-0400Body .88 cmGil Gee MD Work Phone: [facility]10-08-2025 08:25-0400 Body mass index (BMI) [Ratio]29.8 kg/m2Gil Gee MD Work Phone: [phone]10-08-2025 08:25-0400 Body ghkjmsjdxia34 [degF]Gil Gee MD Work Phone: [phone])[address]10-08-2025 08:25-0400 Body quktrw35.79 kgGil Gee MD Work Phone: [phone] [place], [place] [address]743710-08-2025 08:25-0400 Diastolic blood rukkfcur03 mm[Hg]Gil Gee MD Work Phone: [phone])[address]10-08-2025 08:25-0400 Heart rate83 /minGil Gee MD Work Phone: [phone])[address] [place], [place] 7743710-08-2025 08:25-0400 Respiratory rate20 /minGil Gee MD Work Phone: [phone] [place], [place] [address]3710-08-2025 08:25-0400 SaO2% (BldA) [Mass fraction]97 %Gil Gee MD Work Phone: [phone])[address]10-08-2025 08:25-0400 Systolic blood bsmirdgo005 mm[Hg]Gil Gee MD Work Phone: [phone] [place], [place] [address]07-17-2025 08:30-0400 Body .9 cmAdilia Multani DPM Work Phone: [phone]07-17-2025 08:30-0400Body mass index (BMI) [Ratio]30.92 kg/d2KiprjoeAdilia Multani DPM Work Phone: [phone]07-17-2025 08:30-0400Body zpidif372.42 kgAdilia Multani DPM Work Phone: [phone]05-12-2025 11:00-0400Body .9 cmGil Gee MD Work Phone: [phone] [place], [place] [address]Lyoommcrsw34-88-8123 11:00-0400Body mass index (BMI) [Ratio]30.92 kg/m2Gil Gee MD Work Phone: [facility] HospitalNvakncyufj80-05-1192 11:00-0400Body temperature 97.5 [degF]Gil Gee MD Work Phone: [facility] HospitalJumlxhsuzg14-35-5406 11:00-0400Body .42 kgGil Gee MD Work Phone: [facility] HospitalHnhtmswgcz86-78-4943 11:00-0400Diastolic blood qintczmj24 mm[Hg]Gil eGe MD Work Phone: [facility] HospitalBxjykeucat46-30-5190 11:00-0400Heart rate62 /min Gil Gee MD Work Phone: [facility] HospitalNsflpbdgyc58-25-8438 11:00-0400Respiratory rate18 /minGil Gee MD Work Phone: [facility] HospitalQufoqaqesq07-46-3360 11:00-7559DyY9% (BldA) [Mass fraction]97 %Gil Gee MD Work Phone: [facility] HospitalWikniwdate51-83-9408 11:00-0400Systolic blood dssrblie321 mm[Hg]Gil Gee MD Work Phone: [facility] HospitalXbxmojyzgb32-81-9645 09:56-0400Body .9 cmVincent Ching MD Work Phone: [phone]04-14-2025 09:56-0400Body mass index (BMI) [Ratio]31.25 kg/f8UiwcrVincent Ching MD Work Phone: [phone])624-[address] [place], [place] 1047504-14-2025 09:56-0400Body eqlqzx393.51 kgVincent Ching MD Work Phone: [phone])[address]04-14-2025 09:56-0400Diastolic blood ozxlvxla77 mm[Hg]Vincent Ching MD Work Phone: 1([phone] [place], [place] 1047504-14-2025 09:56-0400Heart rate 45 /minVincent Ching MD Work Phone: [phone])[phone] [place], [place] [address] Vdwxpi43-77-9775 09:56-4401YkR3% (BldA) [Mass fraction]97 %Vincent Ching MD Work Phone: [facility] [employer] Hyeszs07-73-6565 09:56-0400Systolic blood bufvjyui973 mm[Hg]Vincent Ching MD Work Phone: 1(280)412-[address] [place] [address] [employer] Mgxpqc38-40-1869 13:04-0500Body vadycb723.9 cmAdilia Multani DPM Work Phone: [facility] HospitalMlgulhojuv21-64-4036 13:04-0500Body mass index (BMI) [Ratio]31.87 kg/a0Egsiureluis Multani DPM Work Phone: [phone] HospitalEfxztfgvvh55-90-2244 13:04-0500Body mchmqe762.59 kgJeangie Multani DPM Work Phone: [phone] HospitalZgrrcvyjdu38-98-5415 10:26-0500Body vpybra800.9 cmKelsi Mici PA-C Work Phone: [phone] [place], [place] [address] Grczgs68-45-0875 10:26-0500Body mass index (BMI) [Ratio]31.87 kg/f6Gmxfo Mici PA-C Work Phone: [phone] [place], [place] [address] Abukyt38-16-8281 10:26-0500Body .59 kgKelsi Mici PA-C Work Phone: [phone] [place], [place] [address] Jnxmen19-83-0605 10:26-0500Diastolic blood bpinegyj75 mm[Hg]Nancy Mici PA-C Work Phone: [phone] [place], [place] [address] Tucfto20-47-6252 10:26-0500Heart rate 62 /minKelsi Mici PA-C Work Phone: [phone] [place], [place] [address] Tpnzch74-07-3872 10:26-2809RyW1% (BldA) [Mass fraction]97 %Nancy Mici PA-C Work Phone: [facility]01-14-2025 10:26-0500Systolic blood mm[Hg]Nancy Simmonsi PA-C Work Phone: [facility]01-13-2025 08:56-0500Body rgnqna746.9 cmGil Gee MD Work Phone: [facility] HospitalZxgblqfsqw08-01-3881 08:56-0500Body mass index (BMI) [Ratio]31.74 kg/m2Gil Gee MD Work Phone: [facility] HospitalNehhxxaenk92-65-1888 08:56-0500Body temperature 97.81 [degF]Gil Gee MD Work Phone: [facility] HospitalZkqmcwwsns10-16-0914 08:56-0500Body lvpici402.14 kgGil Gee MD Work Phone: [facility] HospitalRckefaymsx11-32-2351 08:56-0500Diastolic blood zurbeykv47 mm[Hg]Gil Gee MD Work Phone: [facility] HospitalOxahssdpbo33-08-2653 08:56-0500Heart rate92 /min Gil Gee MD Work Phone: [facility] HospitalIfabcabvem39-52-0332 08:56-0500Respiratory rate18 /minGil Gee MD Work Phone: [facility] HospitalVrzywbpbqd28-40-0299 08:56-8994RsI7% (BldA) [Mass fraction]98 %Gil Gee MD Work Phone: [facility] HospitalXzlkxmgoeb10-31-3817 08:56-0500Systolic blood ndfzmbui451 mm[Hg]Gil Gee MD Work Phone: [facility] HospitalTtxtlijzic59-03-8864 13:28-0500Body mass index (BMI) [Ratio]31.86 kg/m6UhztvEdgard SEGAL Work Phone: [facility]12-23-2024 13:28-0500Body owbywwbnugi06 [degF]Edgard SEGAL Work Phone: 1(217)645-[address] [place], [place] 3179812-23-2024 13:28-0500Body .59 kgEdgard Villa APRN-VOICE ENGINEER Work Phone: 1(539)694-[address] [place], [place] 3179812-23-2024 13:28-0500Diastolic blood lacghpwf02 mm[Hg]Edgard SEGAL Work Phone: 1(627)522-[address] [place], [place] 3179812-23-2024 13:28-050Heart rate 83 /minEdgard Villa APRN-VOICE ENGINEER Work Phone: 1(204)024-[address] [place], [place] 3179812-23-2024 13:28-0500 Respiratory rate18 /Liz Villa APRN-VOICE ENGINEER Work Phone: [facility]12-23-2024 13:282536ThO0% (BldA) [Mass fraction]96 %Edgard Villa APRN-VOICE ENGINEER Work Phone: [facility]12-23-2024 13:28-050Systolic blood ykjdpqhi277 mm[Hg]Edgard SEGAL Work Phone: [phone]11-22-2024 13:03-0500Body .9 Deric Gee MD Work Phone: [facility]11-22-2024 13:03-0500Body mass index (BMI) [Ratio]31.71 kg/o5ZsepoGrace Gee MD Work Phone: [facility]11-22-2024 13:03-0500Body aoshnz168.05 kgGrace Gee MD Work Phone: [facility]11-22-2024 13:03-0500Diastolic blood mnxymrij25 mm[Hg]Grace Gee MD Work Phone: [facility]11-22-2024 13:03-0500Heart rate 88 /minGrace Gee MD Work Phone: [facility]11-22-2024 13:03-6896HdB2% (BldA) [Mass fraction]97 %Grace Gee MD Work Phone: [facility]11-22-2024 13:03-0500Systolic blood agzdenbl569 mm[Hg]Grace Gee MD Work Phone: [facility]11-11-2024 10:29-0500Body udbttx685.9 cmGil Gee MD Work Phone: 1([phone] [place], [place] [address]Muzizgjsrd47-86-6677 10:29-0500Body mass index (BMI) [Ratio]31.46 kg/m2Gil Gee MD Work Phone: 1(875)319-[address] [place], [place] [address]Oknkymhucn88-59-1333 10:29-0500Body temperature 97.81 [degF]Gil Gee MD Work Phone: [phone] [place], [place] [address]Ifmhkjeviy62-19-8226 10:29-0500Body rerlsl772.23 kgGil Gee MD Work Phone: [facility] HospitalLmvxotkkue69-09-4514 10:29-0500Diastolic blood oztxcvmm91 mm[Hg]Gil Gee MD Work Phone: [facility] HospitalRwlpivyxuc41-48-9669 10:29-0500Heart rate71 /min Gil Gee MD Work Phone: [address] [address]Uyphuiqyac24-62-9355 10:29-0500Respiratory rate20 /minGil Gee MD Work Phone: [address] [address]Zwnvnguuzk25-31-6845 10:29-7424RfT6% (BldA) [Mass fraction]97 %Gil Gee MD Work Phone: [facility] HospitalAvplybopjx42-96-1043 10:29-0500Systolic blood jkbftjob376 mm[Hg]Gil Gee MD Work Phone: [facility] HospitalHmclouwxqv30-83-1330 10:45-0400Body wgvbov070.4 cmGil Gee MD Work Phone: [facility] HospitalFzkkrkpaug54-98-9237 10:45-0400Body mass index (BMI) [Ratio]30.34 kg/m2Gil Gee MD Work Phone: [phone] HospitalIjefyhmxiq41-96-5603 10:45-0400Body temperature 97.7 [degF]Gil Gee MD Work Phone: [phone] HospitalAxwufaldem56-35-8455 10:45-0400Body lomlol192.33 kgGil Gee MD Work Phone: [phone] HospitalKncrzdilmx33-53-5383 10:45-0400Diastolic blood sbiwnmnc46 mm[Hg]Gil Gee MD Work Phone: [phone] HospitalRfuoefgfky80-11-5028 10:45-0400Heart rate58 /min Gil Gee MD Work Phone: [phone] HealthcareComment on above:98% R572-10-8272 10:45-0400Systolic blood shfrzdyg127 mm[Hg]Gil Gee MD Work Phone: [facility] HospitalDnuofrkaer32-53-7403 15:43-0500Diastolic blood tzonqjhj25 mm[Hg]MD Gil Gee Work Phone: [facility]12-19-2023 15:43-0500 Heart rate59 /minMD Gil Gee Work Phone: 1(041)704-[facility]12-19-2023 15:43-0500 Respiratory rate16 /minMD Gil Gee Work Phone: 1(533)385-[address] [place], [place] 49[address]212-19-2023 15:43-0500 SaO2% (BldA) [Mass fraction]95 %MD Gil Gee Work Phone: 1(761)152-[facility]12-19-2023 15:43-0500 Systolic blood nkzfsjuf878 mm[Hg]MD Gil Gee Work Phone: [facility]12-19-2023 14:07-0500 Body ribizyufluq91.3 [degF]MD Gil Gee Work Phone: [facility]12-19-2023 14:07-0500 Inhaled oxygen flow rate6 L/minMD Gil Lonora Work Phone: [facility]12-19-2023 12:55-0500 Body genfkf397.42 cmMD Gil Lonora Work Phone: [facility]12-19-2023 12:55-0500 Body mass index (BMI) [Ratio]30.7 kg/m2MD Gil Lonora Work Phone: [facility]12-19-2023 12:55-0500 Body ghkyvv564.5 kgMD Gil Lonora Work Phone: [facility]09-03-2023 12:05-0400 Body .88 Chris Somers Other [place] [employer] Other 09-03-2023 12:05-0400Body mass index (BMI) [Ratio] 31.08 kg/b0MiysmqYolanda Somers Other [facility] Other 09-03-2023 12:05-0400Body ccrgdnujdzn94.6 [degF]Yolanda Somers Other [place] [employer] Other 09-03-2023 12:05-0400Body aoqwss706.97 kgYolanda Somers Other [employer] Other 09-03-2023 12:05-0400Diastolic blood mm[Hg] Yolanda Somers Other [facility] HospitalR[facility] Other 09-03-2023 12:05-0400Respiratory rate18 /minYolanda Somers Other [place] [employer] Other 09-03-2023 12:05-4266ExO5% (BldA) [Mass fraction]97 % Yolanda Somers Other [place] [employer] Other 09-03-2023 12:05-0400Systolic blood jzvrmjpo967 mm[Hg] Yolanda Somers Other [facility] [employer] Other Encounters Encounter DateEncounter TypeCare ProviderFacilityStart: 01-10-2025 End: 53-19-0971Nyicba-up encounterDavion Issa CardiologyComment on above:Lipid panelStart: 26-88-2807cjzwkybtlhYFBRZ Centervilletart: 01-09-2025 End: 34-44-6086edaoaylpunFINQOQWMultiCare [facility] Start: 01-06-2025 End: 78-06-9757xyzhjgilrnVIBSKTYGJ PHARMACY MEDICATION MANAGEMENTMemorial Hospitaltart: 01-06-2025 End: 66-34-3595Murhjo-up encounterDarrel Rangel MD Work Phone: [facility] - Pharmacy Medication ManagementComment on above:Persistent atrial fibrillation (CMS-HCC) (Primary Dx); exterminator termite (current) use of anticoagulants; Anticoagulated on CoumadinStart: 01-02-2025 End: 11-33-0348Lbgrcy outpatient visit 15 minutesSuman Rust Pa OPTICAL GLASS ETCHER-VOICE ENGINEER Work Phone: [facility] CardiologyComment on above: Coronary artery disease involving [place] coronary artery of [place] heart without angina pectoris (Primary Dx); Essential hypertension; Left ventricular dysfunction; Persistent atrial fibrillation (CMS-HCC); Pulmonary hypertension (CMS-HCC); Anticoagulated on CoumadinStart: 01-02-2025 End: 06-01-4030gpvscairriYVRJDTriHealth Bethesda Butler Hospitaltart: 12-30-2024 End: 03-29-1549Hkmbputog encountereZinab Quevedo [facility]IAPro[facility] Physicians CardiologyStart: 12-20-2024 End: 09-87-0033Vwwmebsx Result EncounterGil Gee MD Work Phone: noms External Department UnsolicitedStart: 12-20-2024 End: 77-72-3018Smhvuimg Result EncounterGil Gee MD Work Phone: noms External Department UnsolicitedStart: 12-15-2024 End: 81-75-2257Zcekxiham encounterAdilia Tesfaye APRN-VOICE ENGINEER Work Phone: [facility] General SurgeryStart: 12-14-2024 End: 09-70-9586vhcvvxcxyoEiql Naderer MD Work Phone: [facility] Work Phone: Start: 12-14-2024 End: 47-09-4878Iedsbkl encounter Sherrill Gee MD-[facility] [place] Work Phone: Start: 11-29-2024 End: 61-89-8009Ycvdgssk Result EncounterGil Gee MD Work Phone: noms External Department UnsolicitedStart: 11-29-2024 End: 15-79-1010Fgowaxzg Result EncounterGil Gee MD Work Phone: noms External Department UnsolicitedStart: 11-28-2024 Patient encounter procedureGil Gee MD Work Phone: [facility] Centertart: 11-15-2024 End: 22-36-7690AlqgsmLniwMag [place] [facility] CardiologyComment on above:Med RefillStart: 11-11-2024 End: 56-31-5115mbintsqoeeTXKDPQDFR PHARMACY MEDICATION MANAGEMENTMemorial Hospitaltart: 11-11-2024 End: 21-39-0263Kesero-up encounterDarrel Rangel MD Work Phone: [facility] [facility] Med[facility] ManagementComment on above:Persistent atrial fibrillation (CMS-HCC) (Primary Dx); longterm (current) use of anticoagulants; Anticoagulated on CoumadinStart: 09-22-2024 End: 61-22-7348Gstoxj Chanel Multani DPM Work Phone: NORD PODIATRYStart: 09-22-2024 End: 78-80-9629Unblyi flowsMalu Multani DPM Work Phone: NONL PODIATRYStart: 09-22-2024 End: 41-00-6295Ccmhpla encounter procedureAdilia Multani DPM Work Phone: noms PODIATRYComment on above:Onychomycosis (Primary Dx)Start: 09-22-2024 End: 56-18-1172cqofjrvdirZWGKZBR W CLARKENot AvailableStart: 09-16-2024 End: 76-87-6062dsttiefcrcYLMCTTSQJ PHARMACY MEDICATION MANAGEMENTMemorial Hospitaltart: 09-16-2024 End: 77-59-0261Aoyzzs-up encounterDarrel Rangel MD Work Phone: [phone] Medication ManagementComment on above:Persistent atrial fibrillation ([facility]-HCC) (Primary Dx); exterminator termite (current) use of anticoagulants; Anticoagulated on CoumadinStart: 09-15-2024 End: 64-18-2013Uhznquhip Result EncounterGeneric External Data ProviderNOMS External Department UnsolicitedStart: 09-15-2024 End: 95-36-1401Dvtgazxga Result EncounterGeneric External Data ProviderNOMS External Department UnsolicitedStart: 09-12-2024 End: 11-36-8865Jfnihfysb Result EncounterGeneric External Data ProviderNOMS External Department UnsolicitedStart: 09-12-2024 End: 49-93-2639Wexxwsbyp Result EncounterGeneric External Data ProviderNOMS External Department UnsolicitedStart: 08-19-2024 End: 84-34-1627Nqidwekmn Result Karey Gee MD Work Phone: noms External Department UnsolicitedStart: 08-19-2024 End: 83-70-9141Ebxstfxpj Result EncounterGil Gee MD Work Phone: noms External Department UnsolicitedStart: 08-18-2024 End: 91-48-6061Uayaomqav encounterJojoyce Olmstead [facility] - Heart Failure ClinicComment on above:medication questionStart: 08-10-2024 End: 30-60-7516Bgmhyjigw encounterJesteffen Plasencia CMAProMedica Physicians CardiologyStart: 07-29-2024 End: 11-18-6686khoxjlsepjQGDEBVXWJ PHARMACY MEDICATION MANAGEMENTProParis Regional Medical Centertart: 07-26-2024 End: 72-27-2072Ngvacz flowsheetSuman Garcia MD Work Phone: noms SWS DERMStart: 07-26-2024 End: 61-07-4183Epthns flowsheetEmcharley Garcia MD Work Phone: noms SWS DERMStart: 07-26-2024 End: 34-92-5924Hvaqvw outpatient visit 15 minutesEmcharley Garcia MD Work Phone: noms SWS DERMComment on above:Seborrheic keratosis (Primary Dx); Actinic keratosis; Melanocytic nevus of trunk; Lentigines; Angioma of skin; Skin tag; History of basal cell carcinomaStart: 07-26-2024 End: 50-42-7822lkqhsowunaIURTP A PETITTINot AvailableStart: 07-21-2024 End: 14-73-3671Dsmszvjbn Result EncounterGeneric External Data ProviderNOMS External Department UnsolicitedStart: 07-21-2024 End: 68-53-3190Breyvpunh Result EncounterGeneric External Data ProviderNOMS External Department UnsolicitedStart: 07-18-2024 End: 58-94-8874Aojrhw flowsZully Gee MD Work Phone: noms CWM FMStart: 07-18-2024 End: 55-91-4086Tdlzmv flowsheetGil Gee MD Work Phone: noms CWM FMStart: 07-18-2024 End: 87-22-7465Wvujvcckd Result EncounterGil Gee MD Work Phone: noms External Department UnsolicitedStart: 07-18-2024 End: 27-73-0139Vicsma outpatient visit 25 minutesGil Gee MD Work Phone: noms CWM FMComment on above:Benign hypertension (CMS/HCC) (Primary Dx); Chronic HFrEF (heart failure with reduced ejection fraction) (CMS/HCC); Persistent atrial fibrillation (HCC) (CMS/HCC); Osteoarthritis, generalized; Coronary artery disease involving [place] coronary artery of [place] heart without angina pectoris (CMS/HCC)Start: 07-18-2024 End: 94-31-7851whnsbxdhjrAWOS NADERERNot AvailableStart: 07-15-2024 End: 40-56-1936vprxlwkbplCBFATIBXH PHARMACY MEDICATION MANAGEMENTMemorial Hospitaltart: 07-15-2024 End: 89-50-9276Scizhn-up encounterDarrel Rangel MD Work Phone: [facility] - Pharmacy Medication ManagementComment on above:Persistent atrial fibrillation (CMS-HCC) (Primary Dx); exterminator termite (current) use of anticoagulants; Anticoagulated on CoumadinStart: 07-14-2024 End: 41-04-6249Hkbuznzll Result EncounterGeneric External Data ProviderNOMS External Department UnsolicitedStart: 07-14-2024 End: 16-14-9400Bonoizegf Result EncounterGeneric External Data ProviderNOMS External Department UnsolicitedStart: 07-13-2024 End: 53-10-2129wtbfjnoeabDGKOSMission Community Hospitaltart: 06-20-2024 End: 97-48-6401Xhxryp outpatient visit 25 minutesVincent Ching MD Work Phone: [facility] Physicians CardiologyComment on above: Ischemic cardiomyopathy (Primary Dx)Start: 06-20-2024 End: 11-13-8272enkuerqirnQAAEMUniversity Hospitals Samaritan Medical Centertart: 06-17-2024 End: 71-66-2003Whzniahzg encounterHaylie Plasencia [facility] CardiologyStart: 06-16-2024 End: 05-41-4344Vppgrycsy Result EncounterGil Gee MD Work Phone: noms External Department UnsolicitedStart: 06-16-2024 End: 49-34-9970Rissllmom Result EncounterGil Gee MD Work Phone: noms External Department UnsolicitedStart: 06-13-2024 End: 07-78-6903Ahumziezr encounterYampa Valley Medical Center Pharm[facility] Medication Management Work Phone: [phone] - Pharmacy Medication ManagementComment on above:Med RefillStart: 06-10-2024 End: 66-91-5293keuazvygygZKDWX B PATNationwide Children's Hospitaltart: 05-27-2024 End: 32-20-0126bmaytaowqmYFQXXASWV PHARMACY MEDICATION MANAGEMENTMemorial Hospitaltart: 05-27-2024 End: 00-81-3226Uofgjn-up encounterDarrel Rangel MD Work Phone: [phone] - Pharmacy Medication ManagementComment on above:Persistent atrial fibrillation (CMS-HCC) (Primary Dx); exterminator termite (current) use of anticoagulants; Anticoagulated on CoumadinStart: 05-25-2024 End: 48-48-6942yjxhhviasrBG., GEORGE C STEPANICNot AvailableStart: 05-20-2024 End: 89-19-6337Xfwgkjjhi Result EncounterGil Gee MD Work Phone: noms External Department UnsolicitedStart: 05-20-2024 End: 19-54-7975Ctnahokek Result EncounterGil Gee MD Work Phone: noms External Department UnsolicitedStart: 05-19-2024 End: 48-54-0067Onpkiz OnlyGil Gee MD Work Phone: noRT CWM FMComment on above:Adult hypothyroidism (CMS/HCC) (Primary Dx)Start: 05-18-2024 End: 90-50-5959TodokvMzevp Linda Wu-Layman [facility] [place] Physicians Cardiology Comment on above:Med RefillStart: 05-16-2024 End: 41-25-3470AnevukLzqpb Simon RNPWinn Parish Medical Center Physicians CardiologyComment on above:Med RefillStart: 05-06-2024 End: 20-01-9671Ksuypstje encounterKanwal Langston [facility] - Cardiac RehabStart: 05-06-2024 End: 74-87-4769gjekfjvaktNXXTR BOUMEGOUATrumbull Memorial Hospitaltart: 04-08-2024 End: 84-64-1146xqqbivdpjaZWVKRSBGF PHARMACY MEDICATION MANAGEMENTMemorial Hospitaltart: 04-08-2024 End: 93-49-4356Ahozac-up encounterDarrel Rangel MD Work Phone: [facility] Medication Therapy ManagementComment on above:Persistent atrial fibrillation (CMS-HCC) (Primary Dx); exterminator termite (current) use of anticoagulants; Anticoagulated on CoumadinStart: 04-07-2024 End: 29-66-9541Uxijdpncs encounterCharli Stephens [facility] Work Phone: [facility] Medication Therapy ManagementStart: 03-26-2024 End: 20-73-1282qqtxfarzouEwh Pope RNPWinn Parish [facility] Center Call CenterStart: 03-25-2024 End: 07-87-1857Cdjuypuaq encounterDavion Abbottnoland hospital [facility] Physicians CardiologyStart: 03-24-2024 End: 36-07-5947Vmaymu Chanel Multani DPM Work Phone: noms PODIATRYStart: 03-24-2024 End: 58-49-4452Tetjwp Chanel Multani DPM Work Phone: noms PODIATRYStart: 03-24-2024 End: 39-47-9992Lijvlqx encounter procedureModestoazamluis Marv Ritchie ROJAS Work Phone: noms PODIATRYComment on above:Onychomycosis (Primary Dx)Start: 03-24-2024 End: 08-37-8947gvrjhchtcwLWNSEEK W CLARKENot AvailableStart: 03-22-2024 End: 54-16-9710xexemfcertQDBWAffinity Health Partners HospitalStart: 03-22-2024 End: 71-16-9491Msbjgm outpatient visit [facility] Vasquez PALACIO Work Phone: [facility] CardiologyComment on above: Coronary artery disease involving [place] coronary artery of [place] heart without angina pectoris (Primary Dx); Persistent atrial fibrillation (CMS-HCC); Essential hypertension; Chronic heart failure with preserved ejection fraction (CMS-HCC)Start: 03-22-2024 End: 09-60-5277Dybsil-up encounterDarrel Rangel MD Work Phone: [facility] Medication Therapy ManagementComment on above:Persistent atrial fibrillation (CMS-HCC) (Primary Dx); exterminator termite (current) use of anticoagulants; Anticoagulated on CoumadinStart: 03-22-2024 End: 58-62-9171fxjmgtffsuJSFHIRegency Hospital Cleveland Easttart: 03-21-2024 End: 30-83-2782Fgbwsh Blair Gee MD Work Phone: noms CW FMStart: 03-21-2024 End: 69-44-3941Gvibdafarideh Gee MD Work Phone: noms CW FMStart: 03-21-2024 End: 91-64-2672Pkvgffxzi encounterLisa Sandy [facility]IAProMedica [facility] Cardiology Start: 03-21-2024 End: 51-63-2014Teznye outpatient visit 25 minutesGil Gee MD Work Phone: noms CW FMComment on above:Coronary artery disease involving [place] coronary artery of [place] heart without angina pectoris (CM S/HCC) (Primary Dx); Benign hypertension (CMS/HCC); Persistent atrial fibrillation (HCC) ([facility]/HCC); Osteoarthritis, generalized; Pulmonary hypertension (CMS/HCC); Chronic HFrEF (heart failure with reduced ejection fraction) (CMS/HCC)Start: 03-21-2024 End: 72-01-2296stjnogijicUICI NADERERNot AvailableStart: 03-11-2024 End: 44-90-0709ijqyhbridyZQVOMercy Health St. Vincent Medical Centertart: 03-10-2024 End: 40-99-1521Cajddhhbo encounterJobst Service Work Phone: [facility] Medication Therapy ManagementStart: 03-04-2024 End: 85-58-5710Ouoypsyzwbujv procedureWejustino COBBWinn Parish Medical Center Physicians Cardiothoracic Surgeons [facility] TowerStart: 03-03-2024 End: 98-37-0783Zsbtkzrwz encounterStasneem COBBWinn Parish Medical Center Physicians Cardiology Start: 02-29-2024 End: 42-22-2857Kezxjoleuxtlb drug [address] Medication Therapy ManagementComment on above:Persistent atrial fibrillation (CMS-HCC) (Primary Dx); longterm (current) use of anticoagulants; Anticoagulated on CoumadinStart: 02-29-2024 End: 69-91-8342vehywhojibZPKCN SERVICEWhite Hospitaltart: 02-29-2024 End: 53-92-2081Ipaieh follow up visit related to original Tristan Villa [employer] ETCHER-VOICE ENGINEER Work Phone: [facility] Physicians Cardiothoracic Surgeons [facility] TowerComment on above:S/P CABG (coronary artery bypass graft) (Primary Dx) Start: 02-29-2024 End: 09-53-6127qyukpndfzjYEBHMercy Health St. Vincent Medical Centertart: 02-19-2024 End: 46-90-9090Ubvrcd-up encounterJudy Christine [facility] Work Phone: [facility] Medication Therapy ManagementComment on above:Essential hypertension (Primary Dx); Persistent atrial fibrillation (CMS-HCC); longterm (current) use of anticoagulants; Anticoagulated on CoumadinStart: 02-17-2024 End: 90-85-9271Lyfjrxlym encounterGeorgette [facility] Call CenterComment on above:bladder scanStart: 58-86-4926dfppnvblttZPKWGD Mauricio [facility] PPGStart: 02-15-2024 End: 85-32-3774Ftvfbblmic and management of inpatientCHRISTOPHER J MOLLY [facility] HospitalStart: 02-12-2024 End: 41-49-6595yxxpyhxobnOZKPHALHZVI J ADRIANRDANMercy Health [facility] Hospital HospitalStart: 02-11-2024 End: 55-75-6481Zldaacnkukiqg procedureWejustino [place] Physicians Cardiothoracic Surgeons [facility] HospitalerStart: 02-10-2024 End: 44-98-0772Pkgehqtjkqplh procedureWejustino Abbottnol[facility] hospital [facility] Physicians Cardiothoracic Surgeons [facility] TowerStart: 02-09-2024 End: 93-09-6041Dgpyzqmkj encounterJobst Service Work Phone: [phone] Medication Therapy ManagementComment on above:Aortic dilatation ([facility]-HCC) (Primary Dx)Start: 02-09-2024 End: 98-92-6542swjqjcweltOFXYPX A SHEIKMercy Health West Hospital HospitalStart: 02-08-2024 End: 80-90-2480Sqqtgi-up encounterDarrel Rangel MD Work Phone: [phone] Medication Therapy ManagementComment on above:Essential hypertension (Primary Dx); Persistent atrial fibrillation (CMS-HCC); exterminator termite (current) use of anticoagulantsStart: 02-08-2024 End: 10-75-2364jnhwexgqywSSHQW SERVICEMemorial Hospitaltart: 02-03-2024 End: 35-72-5586nwpshohzrlIRTRN L DEBENEDBeckley [facility] HospitalStart: 02-02-2024 End: 04-64-4241Syskxhstl encounterRypeter oM [facility] [place] Physicians CardiologyComment on above:cardiac cathStart: 01-29-2024 End: 02-73-6117rqbmbuxhtlMWXXJ L ESTELLEETTIMemorial Hospitaltart: 01-29-2024 End: 88-00-5410Djiwva outpatient visit 40 minutesThkylah Correia MD Work Phone: [facility] Physicians CardiologyComment on above:Atrial fibrillation (CMS-HCC) (Primary Dx); Persistent atrial fibrillation (CMS-HCC); Essential hypertension; Shortness of breath; Pulmonary hypertension (CMS-HCC); Left ventricular dysfunction; Anginal equivalent (CMS-HCC); exterminator termite (current) use of anticoagulantsStart: 01-28-2024 End: 27-71-4346Xfgmgjylg encounterHaylie Plasencia CMATrinity Health System West Campus Physicians CardiologyStart: 01-20-2024 End: 77-65-2090ksvwadszrwEZQCLN A SHEIKZacariasSaint Mary's Health Center HospitalStart: 01-18-2024 End: 61-92-2921Hwwnww Blair Gee MD Work Phone: noms CWM FMStart: 01-18-2024 End: 86-78-0459Dqgjmj Blair Gee MD Work Phone: noms CWM FMStart: 01-18-2024 End: 74-47-0369Qqutwox encounter Sherrill Gee MD Work Phone: noms HealthcareStart: 01-18-2024 End: 41-29-0732Wzbfxz follow up visit related to original Melvin Gee MD Work Phone: noms CW FMComment on above:Medicare annual wellness visit, subsequent (Primary Dx); Statin myopathyStart: 01-18-2024 End: 74-09-9321lnmduyecnyXRDJ NADERERNot AvailableStart: 01-15-2024 End: 08-34-7777dahdghufakCYVEB SERVICEMemorial Hospitaltart: 01-15-2024 End: 52-30-2817Bsulqu-up encounterDarrel Rangel MD Work Phone: [facility] Medication Therapy ManagementComment on above:Essential hypertension (Primary Dx); Persistent atrial fibrillation (CMS-HCC); longterm (current) use of anticoagulantsStart: 12-31-2023 End: 46-33-3462Hsyftnait encounterSuha Issa CardiologyComment on above:Echo Order ExpiredStart: 11-20-2023 End: 28-91-3700Dnmbgq-up encounterDarrel Rangel MD Work Phone: [facility] Medication Therapy ManagementComment on above:Essential hypertension (Primary Dx); Persistent atrial fibrillation (CMS-HCC); longterm (current) use of anticoagulantsStart: 11-18-2023 End: 05-18-3758Wsesbeplh Result EncounterGeneric External Data ProviderNOMS External Department UnsolicitedStart: 11-18-2023 End: 50-71-4719Zkcpmvvmb Result EncounterGeneric External Data ProviderNOMS External Department UnsolicitedStart: 10-30-2023 End: 81-93-2517Diqmnu-up encounterDarrel Rangel MD Work Phone: [facility] Medication Therapy ManagementComment on above:Essential hypertension (Primary Dx); Persistent atrial fibrillation (CMS-HCC); exterminator termite (current) use of anticoagulantsStart: 10-28-2023 End: 21-24-9368Ataqzt Blair Gee MD Work Phone: NOMS CW FMStart: 10-28-2023 End: 03-39-3215Wfhthx Blair Gee MD Work Phone: NOMS CW FMStart: 10-28-2023 End: 29-41-3961Elskmo outpatient visit 25 minutesGil Gee MD Work Phone: NOMS CWM FMComment on above:Benign hypertension (CMS/HCC) (Primary Dx); Persistent atrial fibrillation (HCC) (CMS/HCC); Osteoarthritis, generalized; Primary osteoarthritis of left shoulder; Adult hypothyroidism (CMS/HCC); Dyslipidemia (CMS/HCC); Encounter for long-term current use of medicationStart: 10-28-2023 End: 99-87-9429finvveqpepWGOS BELINDALAURARNot AvailableStart: 10-26-2023 End: 34-85-0760OmuaaoOfzlucu Kohler [facility] Physicians CardiologyComment on above:Med RefillStart: 10-26-2023 End: 59-86-7650JmvixuYgzxmqvxFarhad SEGAL Work Phone: [facility] Physicians CardiologyComment on above:Med RefillStart: 10-19-2023 End: 86-21-3388Ohldqwqnt Result EncounterGeneric External Data ProviderNOMS External Department UnsolicitedStart: 10-19-2023 End: 36-13-6853Yspxgpcas Result EncounterGeneric External Data ProviderNOMS External Department UnsolicitedStart: 10-07-2023 End: 16-77-3343Gzccuxjla encounterCatKeenan Private Hospital Medication Therapy ManagementStart: 09-02-2023 End: 35-81-4227Ugdcgr-up encounterDarrel Rangel MD Work Phone: [facility] Medication Therapy ManagementComment on above:Essential hypertension (Primary Dx); Persistent atrial fibrillation ([facility]-HCC); exterminator termite (current) use of anticoagulantsStart: 07-10-2023 End: 30-31-8796Szmgyy-up encounterDarrel Rangel MD Work Phone: [facility] Medication Therapy ManagementComment on above:Essential hypertension (Primary Dx); Persistent atrial fibrillation ([facility]-HCC); exterminator termite (current) use of anticoagulantsStart: 06-02-2023 End: 77-41-7799Klcnycwgg Result EncounterGeneric External Data ProviderNOMS External Department UnsolicitedStart: 06-02-2023 End: 93-36-3344Hpfloopxt Result EncounterGeneric External Data ProviderNOMS External Department UnsolicitedStart: 05-28-2023 End: 08-74-1323Fwznztkqq Result EncounterGeneric External Data ProviderNOMS External Department UnsolicitedStart: 05-28-2023 End: 63-34-2877Rrawnvupv Result EncounterGeneric External Data ProviderNOMS External Department UnsolicitedStart: 05-22-2023 End: 87-29-9552Pcvioo-up encounterDarrel Rangel MD Work Phone: [facility] Medication Therapy ManagementComment on above:Essential hypertension (Primary Dx); Persistent atrial fibrillation ([facility]-HCC); exterminator termite (current) use of anticoagulantsStart: 04-03-2023 End: 06-75-7575Kqyabr-up encounterDarrel Rangel MD Work Phone: [phone] Medication Therapy ManagementComment on above:Essential hypertension (Primary Dx); Persistent atrial fibrillation ([facility]-HCC); longterm (current) use of anticoagulantsStart: 03-30-2023 End: 76-34-9105Ronihxiaw Result EncounterGeneric External Data ProviderNOMS External Department UnsolicitedStart: 03-30-2023 End: 02-70-7611Iisitpjfo Result EncounterGeneric External Data ProviderNOMS External Department UnsolicitedStart: 98-48-0320Qxgclkuwh encounterJobst Service Work Phone: [phone] Medication Therapy ManagementStart: 80-85-0080Fmiekzrdn encounterDavion Craven Physicians CardiologyComment on above:Cardiac ClearanceStart: 02-24-2023 End: 64-22-3169wzpdekwpaiDojctprr MurcekFacility:[facility] Centertart: 02-24-2023 End: 18-04-1097Ztcndbikg to same day surgery centerMD Gil Gee Work Phone: [facility] Main CampusStart: 02-24-2023 End: 01-33-4786rduwckpdapQN Marc Naderer Work Phone: [facility] Work Phone: Start: 02-19-2023 End: 46-26-2784Ebksopiav Result EncounterGeneric External Data ProviderNOMS External Department UnsolicitedStart: 02-19-2023 End: 14-97-2200Ymxrmelvg Result EncounterGeneric External Data ProviderNOMS External Department UnsolicitedStart: 02-10-2023 End: 50-64-6578lsmdkgdstpEhpyavpi MurcekFacility:[facility] Centertart: 02-10-2023 End: 68-82-8855izcbjtygmrHE Gil Gee Work Phone: [facility] Work Phone: Start: 02-10-2023 End: 05-21-4965Gohihue encounter procedureMD Gil eGe Work Phone: [facility] Pby-Mpt-Yxzxatdp Testing Work Phone: Start: 11-09-2022 End: 51-68-5675rhtnvgsfukWsnxia Dymond Other [place] [employer] Other Start: 74-71-2609Nsnbwk outpatient new 10 minutes Yolanda SomersFPG Urgent Care ClydeStart: 27-44-3375Xyiihno encounter statusGil Gee MD Work Phone: noGA HealthcareStart: 84-20-3424cjrnxytrbhZT GIL Fairchild NADERERFacility:M0Reimc: 06-11-2022 End: 47-90-5899gszswtfhorLI DAVID V WESTFacility:Z6Lbvhz: 06-04-2022 End: 48-62-0084uveucflzapWR MARC A NADERERFacility:K7Vgqdr: 04-08-2022 End: 74-28-5326momglxnlaoEZ GERARDO AUGUSTINFacility:O7Lnirz: 03-04-2022 End: 29-74-0499ltbgfgxzubAB DAVID V WESTFacility:A3Htung: 02-18-2022 End: 68-48-9963pfyoxhfwstGA STEVEN R ZIEBERFacility:H2Pbyqb: 02-04-2022 End: 01-04-0802jxchsszokbEC STEVEN R ZIEBERFacility:O3Jdhlw: 01-06-2022 End: 24-64-5293Xykcaphyrf and management of inpatientDR YOU BRAGAFacility:H1 Start: 11-01-7893Bwvuuaqtp for preprocedural laboratory examinationPETER D [facility] Hospitaltart: 01-02-2022 End: 92-53-2529gxkdwtncorWMGJS [facility]ITALFacility:F8Xehmu: 01-02-2022 End: 19-37-1848Kjltrsgyu for preprocedural laboratory examinationPETER [facility] Hospitalcility:H4Cszjb: 29-76-5822Zuiobnsgv for preprocedural cardiovascular examinationPETER [facility] Hospitaltart: 63-89-8606Zpqhsiknm for preprocedural laboratory examinationPETER [facility] Start: 12-24-2021 End: 27-94-9918ryqazqcjleYDKNJ D HIGHLANDERFacility:H2Wqjlb: 12-24-2021 End: 27-74-5369Lhtyczjok for preprocedural cardiovascular examinationPETER [facility] Hospitalcility:X2Ubhne: 10-23-2021 End: 53-29-3860cdnpgvecdiBC GERARDO Martinezcility:H6Rbact: 08-12-2021 End: 02-81-2776Pijfpdg encounter procedureDarrel Almendarez DPM Work Phone: OrthopaedicsComment on above:DJD (degenerative joint disease), ankle and foot, left (Primary Dx); Osteonecrosis (HCC); PTTD (posterior tibial tendon dysfunction); Acquired valgus deformity of left ankle; Difficulty walking; Ankle instability, left; Chronic pain of left ankleStart: 39-75-1455zvncrwlszhUsypos M Shimrock RT(R) RadiologyComment on above:Radio Gen RMPStart: 07-10-2021 End: 32-48-3902Zddpsal encounter procedureWanda Gandhi RT(R)[facility] Comment on above:DJD (degenerative joint disease), ankle and foot, left (Primary Dx); Acquired valgus deformity of left ankle; PTTD (posterior tibial tendon dysfunction); Difficulty walkingStart: 07-10-2021 End: 90-38-6365Olmnlhqmqx hospital visit by physicianXr [facility] Radha Work Phone: RadiologyComment on above:Left ankle pain, unspecified chronicity [M25.572]Start: 06-14-2021 End: 08-75-1713Iuuwsfe encounter procedureChrisgiancarlo Saucedo DPM Work Phone: OrthopaedicsComment on above:Acquired valgus deformity of left ankle (Primary Dx); Ankle instability, left; Chronic pain of left ankleStart: 07-91-8408Ravgamn encounter statusDavion Jackson [facility] MEDICAL CENTERPatton Surgical SystemStart: 05-12-2013 End: 51-74-6506Yahysyf encounter statusGrace Gee MD Work Phone: [facility] HospitalNanotecture [facility] Work Phone: Procedures DateProcedureProcedure DetailPerforming ClinicianStart: 69-14-4438Dfjgaejogem timePromedica Pharmacy Medication Management Work Phone: Start: 36-85-8266Rgqxz of prostate specific antigen totalGil Gee MD Work Phone: Start: 66-19-4802Corwzifx blood count with white cell differential, automatedGil Gee MD Work Phone: Start: 29-83-7424Ztkybvfg blood count with white cell differential, automatedGil Gee MD Work Phone: Start: 39-09-3323Qznbpkkpeqnty metabolic panelGil Gee MD Work Phone: Start: 65-06-7935Hcrmabhhpea timePromedica Pharmacy Medication Management Work Phone: Start: 44-38-8747Hswgjvhqgxg timePromedica Pharmacy Medication Management Work Phone: Start: 94-29-5602JKQTtfpglw External Data Provider Start: 34-87-7679FQBSjxjfdl External Data ProviderStart: 96-19-4583UDOAsjm Naderer MD Work Phone: Start: 33-39-2206AFQXXCJWANK SKIN LESIONSuman Garcia MD Work Phone: Start: 87-61-0151ET FOOT RT MIN 3VGeneric External Data ProviderStart: 60-64-4406QMIRyer Naderer MD Work Phone: Start: 78-04-1895Denxmklvyaq timePromedica Pharmacy Medication Management Work Phone: [phone]: 04-52-4272EU ANKLE LT MIN 3VGeneric External Data ProviderStart: 15-69-8454FZ FOOT LT MIN 3VGeneric External Data Provider Start: 96-18-8726AOJLkhv Naderer MD Work Phone: Start: 86-50-6674Asfktuphhxm timePromedica Pharmacy Medication Management Work Phone: Start: 67-00-6561NSHUhnx Naderer MD Work Phone: Start: 60-85-8132Thjuzyfqchh timeJobst Service Work Phone: Start: 90-43-6998Rmotjagqczy timeJobst Service Work Phone: Start: 77-55-1527Zbudbbzzqlv timeJobst Service Work Phone: Start: 22-66-1757Zrwrkbwevim timeJobst Service Work Phone: Start: 22-07-0260Gnr routine ecg w/least 12 lds w/i&r Grace Gee MD Work Phone: Start: 46-79-9329Njofoa-up visitFollow-upLSUSANA GEEStart: 53-58-3763Skcamhngfds timeJobst Service Work Phone: Start: 78-23-8611Sdgeyubqwxx timeJobst Service Work Phone: Start: 94-27-1719JQ ANKLE LT WO CONGeneric External Data ProviderStart: 72-63-1475XYJ BASIC METABOLIC PANELGil Gee MD Work Phone: Start: 64-94-9080KNC CBC WITH AUTO DIFFGil Gee MD Work Phone: Start: 83-30-1930ITQ LIPID PROFILE (FASTING)Gil Gee MD Work Phone: Start: 55-83-9626OBY MAGNESIUMGeneric External Data ProviderStart: 63-45-9936FYG T3 FREEGil Gee MD Work Phone: Start: 70-37-7109BLB THYROID STIM HORMONEGil Gee MD Work Phone: Start: 40-02-1048XPM THYROXINE (T4) FREEGil Gee MD Work Phone: Start: 40-33-4673FSKC LIVER PANELGil Gee MD Work Phone: Start: 10-62-5115Hipvxxfakil timeJobst Service Work Phone: Start: 87-04-8982AE ANKLE LT MIN 3VGeneric External Data ProviderStart: 64-96-9655IJ FOOT LT MIN 3VGeneric External Data Provider Start: 87-42-7381Swzrzbicmup timeJobst Service Work Phone: [phone]: 68-16-3519Xkfobymarsf timeJobst Service Work Phone: Start: 36-63-0557QZ ANKLE LT WO CONGeneric External Data ProviderStart: 96-28-1779BG FOOT LT MIN 3VGeneric External Data Provider Start: 60-83-1837Afjqydszqds timeJobst Service Work Phone: [phone]: 84-77-1400Szyqfxjculp timeJobst Service Work Phone: Start: 40-34-2886ISDMMZICW BLOOD PRESSUREGeneric External Data ProviderStart: 39-76-3804Asjqshbg of lesion of cheekMD Gil Gee Work Phone: Start: 30-21-8114GA FOOT LT MIN 3VGeneric External Data ProviderStart: 52-94-5949Wtbamzh of operative procedure on kneeHistory of left knee replacementGil Gee MD Work Phone: Start: 49-15-0406Taoszrxe of Left Lower Leg Tendon, Open ApproachDR GERARDO NEWMANtart: 56-64-1554Ynwqydpn of Left Foot Tendon, Open ApproachDR GERARDO NEWMANtart: 54-82-1807Wqyufcsg of Left Tarsal, Open Approach DR GERARDO NEWMANtart: 56-27-4759Xapgrw of Left Tarsal Joint with Autologous Tissue Substitute, Open ApproachDR GERARDO NEWMANtart: 33-52-9857Mskbanw Left Foot Bursa and Ligament, Open ApproachDR GERARDO NEWMANtart: 07-10-2021 End: 73-82-0553Unfmm ankle complete minimum 3 viewsDarrel Almendarez DPM Work Phone: Start: 03-74-5644YegrpknyukmAtlfoeabm Wiezorek RN Start: 05-13-2018H/O: artificial jointStatus post replacement of left shoulder jointChristopher Serafin ROJAS Work Phone: History of coronary artery bypass graftingS/P CABG (coronary artery bypass graft)Edgard Villa OPTICAL GLASS ETCHER-VOICE ENGINEER Work Phone: Plan of Treatment DateCare ActivityDetailAuthorStart: 13-52-4616Xkxcywamq for malignant neoplasm of colonColonoscopyProMedica Health SystemStart: 87-91-0103Zkiybpd Screening Tobacco ScreeningProMedica Health SystemStart: 62-16-9991Onnstji Screening Tobacco ScreeningProMedica Health SystemStart: 07-26-2025 End: 69-85-8144Uhvbjcs encounter procedureNOMS SWS DERMStart: 58-51-5176TFHDJ-19 Vaccine ( season)COVID-19 Vaccine ()[facility] Health SystemStart: 33-94-5731Vvznzrx ScreeningTobacco ScreeningProMedica Health SystemStart: 05-24-2025 End: 97-89-3302Fzmjnur encounter procedureNOMS SWS ORTHOStart: 03-28-2025 End: 00-09-0174Igpenyy encounter procedureNOMS FH PODIATRYStart: 03-22-2025 Tobacco ScreeningTobacco ScreeningProMedica Health SystemStart: 02-24-2025 End: 04-28-1597Uchyer-up lbheqmumo65/19/2025 8:00 AM EST Follow Up Anticoagulation [facility] - Pharmacy Medication Management [address] [place] [address] Darrel Rangel MD [address] [place] [address], [address] [place] [address] [facility] - Pharmacy Medication ManagementStart: 62-72-9396Fzapgam ScreeningTobacco ScreeningProMedica [facility] SystemStart: 52-27-6967Xfkjjrb ScreeningTobacco ScreeningProMedica Health SystemStart: 46-40-2658Vmwsfgm ScreeningTobacco ScreeningProMedica Health SystemStart: 01-23-2025 End: 11-19-8724Oaidndj encounter zciscnlep32/17/2025 8:00 AM EST [facility] [address] [place] [address] Gil eGe MD [address] [place] [address] [facility] CWM FMStart: 11-11-2025Medicare Annual Wellness (AWV)Medicare Annual Wellness (AWV)[facility] HealthcareStart: 01-09-2025 End: 59-17-9813Qmtvali encounter aigeyxvqn30/03/2025 1:00 PM EST Office Visit [facility] [address], [place] Adilia Tesfaye, OPTICAL GLASS ETCHER-VOICE ENGINEER [address] [place] [address] [facility] General SurgeryStart: 01-06-2025 End: 96-09-2227Fmblnf-up pjaljtaac45/31/2025 8:00 AM EDT Follow Up Anticoagulation [facility] - Pharmacy Medication Management [address] [place] [address] Darrel Rangel MD [address], [address] [place] [address] [facility] Medication ManagementStart: 01-02-2025 End: 41-20-4857Mrzmjwo encounter procedureProMedica Physicians CardiologyStart: 12-20-2024 End: 09-59-1333Wztxatd encounter fhjjbvfxa02/14/2025 9:30 AM EDT Office Visit [facility] [address] [address] Suman Winn, OPTICAL GLASS ETCHER-VOICE ENGINEER [address] [place] [address] [facility] CardiologyStart: 36-53-1014Oixatlh referralCincinnati Va Medical Center Work Phone: Start: 11-11-2024 End: 07-53-6208Tghhgw-up /05/2025 8:00 AM EDT Follow Up Anticoagulation [facility] - Pharmacy Medication Management [address] [place] [address] Darrel Rangel MD [address], [address] [place] [address] [facility] Medication ManagementStart: 99-01-0962AVJFZ-19 Vaccine ( season)COVID-19 Vaccine ( season)[facility]Start: 25-42-7241RVLWJ-19 Vaccine ( season) COVID-19 Vaccine ( season)[facility] SystemStart: 11-07-2024 Influenza vaccinationUC [facility] Hospital SystemStart: 09-22-2024 End: 03-05-4439Vwmggub encounter procedureNOMS FH PODIATRYComment on above: ArrivedStart: 09-16-2024 End: 30-06-1450Sntroq-up ciknorqlc43/11/2025 8:00 AM EDT Follow Up Anticoagulation [facility] Medication Management [address] [place] [address] Darrel Rangel MD [address], [address] [place] [address] [facility] Medication ManagementStart: 07-29-2024 End: 10-53-1390Seoeav-up tjcbgdewy67/23/2025 8:00 AM EDT Follow Up Anticoagulation [facility] Medication Management [address] [place] [address] Darrel Rangel MD [address], [address] [place] [address] [facility] Medication ManagementStart: 07-26-2024 End: 64-68-9466Brsgdfp encounter procedureNOMS SWS DERMComment on above:Arrived Start: 07-18-2024 End: 16-53-1888Gajqxhh encounter procedureNOMS CWM FMComment on above:Arrived Start: 07-15-2024 End: 40-26-9561Qmenmh-up haowhlxuk01/09/2025 8:00 AM EDT Follow Up Anticoagulation [facility] Medication Management [address] [place] [address] Darrel Rangel MD [address] [employer], [address] [place] [address] [facility] Medication ManagementStart: 07-04-2024 End: 42-13-0190Gluwy metabolic 2000 panel - Serum or PlasmaBasic Metabolic Panel Lab Routine Ischemic cardiomyopathy Expected: 07/04/2024 (Approximate), s: 06/20/2025ProVan Wert County Hospital SystemComment on above:Expected: 07/04/2024 (Approximate), Expires: 06/20/2025Start: 34-65-1912OUWDI-19 Vaccine ()COVID-19 Vaccine ()[facility] SystemStart: 06-20-2024 End: 61-36-2835Pcch complete W/O contrastEcho complete W/O contrast Echocardiography Routine Ischemic cardiomyopathy Expected: 06/20/2024, Expires: 06/20/2025[facility] Work Phone: Comment on above:Expected: 06/20/2024, Expires: 06/20/2025Start: 06-20-2024 End: 48-37-3837Tpfikwq encounter ruejrmacy41/14/2025 10:00 AM EDT Office Visit [facility] [address] [place] [address] Vincent Ching MD [address] [place] [address] [facility] Physicians CardiologyStart: 05-27-2024 End: 05-80-6838Gvizdr-up encounterProCleveland Clinic [facility] Medication Therapy ManagementStart: 05-25-2024 End: 95-57-4734Qifskow encounter procedureNOMS FB ORTHOPAEDICSStart: 04-08-2024 End: 51-42-1003Wxcnjg-up xeasqencx07/31/2025 8:00 AM EST Follow Up Anticoagulation [facility] Medication Therapy Management [address] [place] [address] Darrel Rangel MD [address] [facility], [address] [place] [address] [facility] Medication Therapy ManagementStart: 03-24-2024 End: 58-64-9669Acdwtre encounter procedureNOMS PODIATRYComment on above: ArrivedStart: 03-22-2024 End: 37-89-4946GirIsyqfm Cardiac RehabProMedica Cardiac Rehab Card Rehab Routine Coronary artery disease involving [place] coronary arteryof [place] heart without angina pectoris Expected: 03/22/2024 (Approximate), Expires: 09/19/2024 [facility] Work Phone: Comment on above:Expected: 03/22/2024 (Approximate), Expires: 09/19/2024Start: 03-22-2024 End: 94-86-2402Opfzdds encounter procedureProMedica Physicians CardiologyStart: 03-22-2024 End: 43-40-1737Hmwcix-up /14/2025 10:15 AM EST Follow Up Anticoagulation [facility] Medication Therapy Management [address] [place] [address] Darrel Rangel MD [address], [address] [place] [address] [facility] Medication Therapy ManagementStart: 03-21-2024 End: 86-97-3910Vldszvk encounter uphjwcmie75/13/2025 8:45 AM EST Office Visit [facility] [address] [place] [address] Gil Gee MD [address] [place] [address] ArrivedSTEPHEN DEVLIN FMComment on above:ArrivedStart: 03-11-2024 End: 72-18-8286Swdhwp-up /03/2025 8:00 AM EST Follow Up Anticoagulation [facility] Medication Therapy Management [address] [address] Darrel Rangel MD [address], [address] [place] [address] [facility] Medication Therapy ManagementStart: 02-22-2024 End: 90-74-1740Wdxdoc-up lqofmjveg10/16/2024 8:00 AM EST Follow Up Anticoagulation [facility] Medication Therapy Management [address] [place] [address] Darrel Rangel MD [address], [address] [place] [address] [facility] Medication Therapy ManagementStart: 02-16-2024 End: 69-24-3910Aetefjhf Irrulnz1002/16/2024 10:30 AM EST Clinical Support [facility] [address] [place] [address] [phone] Physicians CardiologyStart: 02-15-2024 End: 95-87-4500Bsmxdibkw to same day surgery newobv9102/15/2024 7:30 AM EST - 02/15/2024 12:00 PM EST Surgery [address] [address] Manuel Barnes MD [address], [address] [place] [address] CORONARY ARTERY BYPASS GRAFT X3-4/ TNOG/ EVHProMedica [facility] Comment on above:CORONARY ARTERY BYPASS GRAFT X3-4/ TONG/ EVHStart: 02-15-2024 End: 96-72-1106SILUCAIP ARTERY BYPASS GRAFTCORONARY ARTERY BYPASS GRAFT CAD 02/15/2024 7:30 AM ESTProMansfield Hospitalca Health SystemStart: 93-09-8854Uztzmllkuq hospital visit by gvuztbydt56/09/2024 7:30 AM EST Hospital Encounter [facility] Surgery [address] [place] [address] Manuel Barnes MD [address], [address] [place], [place] [address] [facility] - Surgery Start: 02-12-2024 End: 41-92-6012Huzfxaq encounter nisxgpqal62/06/2024 11:00 AM EST Appointment [facility] - CT Imaging [address] [place] [address] [facility] - CT ImagingStart: 02-09-2024 End: 22-90-2534CF Chest limited W contrast IVCT chest with contrast Imaging STAT Aortic dilatation (CMS-HCC) Expected: 02/09/2024, Expires: 02/08/2025[facility] Work Phone: Comment on above:Expected: 02/09/2024, Expires: 02/08/2025Start: 02-09-2024 End: 37-63-2960Ldvtaifir to same day surgery centerC[facility] Clinic [facility] - Cardiac CathComment on above:Cardiac InvasiveStart: 34-32-5276Yexsibcpus hospital visit by [facility] - Cardiac CathComment on above:Pulmonary hypertension (CMS-HCC); Anginal equivalent ([facility]-H[facility]); Left ventricular dysfunctionStart: 02-08-2024 End: 27-26-6783Kwqske-up lhqskqsyj55/02/2024 10:15 AM EST Follow Up Anticoagulation [facility] Medication Therapy Management [address] [place] [address] Darrel Rangel MD [address], [address] [place] [address] [facility] Medication Therapy ManagementStart: 01-29-2024 End: 11-82-6603Basgcaz encounter mvxomsedf75/22/2024 1:00 PM EST Office Visit [facility] [address] [place] [address] Mc Correia MD [address] [place] [address] Grace Gee MD [address] [place] [address] [facility] CardiologyStart: 01-20-2024 End: 25-57-1424Nhkekyk encounter /13/2024 8:30 AM EST Appointment [facility] - Cardiovascular [address] [place] [address] [phone] [facility] - [facility] Start: 01-18-2024 End: 84-71-2051Apcisgf encounter jbiizujbr56/11/2024 10:15 AM EST Office Visit [facility] [address] [place] [address] Gil Gee MD [address] [place] [address] [facility] CWRatna FMStart: 01-15-2024 End: 26-98-7840Knsoes-up vvtjpstfa69/08/2024 8:00 AM EST Follow Up Anticoagulation [facility] Medication Therapy Management [address] [place] [address] Darrel Rangel MD [address], [address] [place] [address] [facility] Medication Therapy ManagementStart: 12-29-2023 End: 61-82-5447Wxzuckn encounter vgmiecujm05/22/2024 8:30 AM EDT Office Visit [facility] [address] [address] Mc Correia MD [address] [place] [address] [facility] Physicians CardiologyStart: 07-79-0318Wlbgc BMI ScreeningAdult BMI ScreeningUC [facility] SystemStart: 79-94-0024Sbgplcq ScreeningTobacco ScreeningProMadison Healthtart: 12-18-2023 End: 36-96-5562Ipplsfc encounter deqxtuguu18/11/2024 1:00 PM EDT Appointment [facility] Cardiovascular [address] [place] [address] Brad Greer MD [address] [place] [address] [facility] CardiovascularStart: 11-20-2023 End: 97-70-6583Wegmhm-up fchjylegt07/13/2024 8:00 AM EDT Follow Up Anticoagulation [facility] Medication Therapy Management [address] [place] [address] Darrel Rangel MD [address], [address] [place] [address] [facility] Medication Therapy ManagementStart: 80-17-1021HZQAD-19 Vaccine ( season)COVID-19 Vaccine ( season)[facility] Systemtart: 50-05-2980Szoaspafk vaccinationBLUE MOUNTAIN [facility]OSPITAL HealthcareStart: 10-30-2023 End: 97-41-7154Hylxet-up qxdfvugez04/23/2024 8:00 AM EDT Follow Up Anticoagulation [facility] Medication Therapy Management [address] [place] [address] Darrel Rangel MD [address] [employer], [address] [place] [address] [facility] Medication Therapy ManagementStart: 10-28-2023 End: 46-80-7337Damhq metabolic 1998 panel - Serum or PlasmaBasic metabolic panel Lab Routine Encounter for long-term current use of medication Expected: 2023 (Approximate), Expires: 10/27/2024[facility] Work Phone: Comment on above:Expected: 10/28/2023 (Approximate), Expires: 10/27/2024Start: 10-28-2023 End: 14-74-1071GXP W Auto Differential panel - BloodCBC and differential Lab Routine Encounter for long-term current use of medication Expected: 10/28/2023 (Approximate), Expires: 10/27/2024[facility] HealthcareComment on above:Expected: 10/28/2023 (Approximate), Expires: 10/27/2024Start: 10-28-2023 End: 22-16-9833Uyidxvt function 2000 panel - Serum or PlasmaHepatic function panel Lab Routine Encounter for long-term current use of medication Expected: 10/28/2023 (Approximate), Expires: 10/27/2024[facility] HealthcareComment on above: Expected: 10/28/2023 (Approximate), Expires: 10/27/2024Start: 10-28-2023 End: 41-67-5943Tabgn 1996 panel - Serum or PlasmaLipid panel Lab Routine Dyslipidemia (CMS/HCC) Expected: 10/28/2023 (Approximate), Expires: 10/27/2024 [facility] HealthcareComment on above:Expected: 10/28/2023 (Approximate), Expires: 10/27/2024Start: 10-28-2023 End: 49-79-2696Qdpmxeirjpt [Units/volume] in Serum or PlasmaTSH Lab Routine Adult hypothyroidism (CMS/HCC) Expected: 10/28/2023 (Approximate), Expires: 10/27/2024[facility] HealthcareComment on above:Expected: 10/28/2023 (Approximate), Expires: 10/27/2024Start: 10-28-2023 End: 38-96-7745Cfeuunldt (T4) free [Mass/volume] in Serum or PlasmaT4, free Lab Routine Adult hypothyroidism (CMS/HCC) Expected: 10/28/2023 (Approximate), Expires: 10/27/2024[facility] HealthcareComment on above:Expected: 10/28/2023 (Approximate), Expires: 10/27/2024Start: 10-28-2023 End: 78-00-0325Ixrxhbznqycflfnh (T3) Free [Mass/volume] in Serum or PlasmaT3, free Lab Routine Adult hypothyroidism (CMS/HCC) Expected: 10/28/2023 (Approximate), Expires: 10/27/2024[facility] HealthcareComment on above:Expected: 10/28/2023 (Approximate), Expires: 10/27/2024Start: 10-28-2023 End: 87-58-8098Xbiwzvw encounter juthfetjv09/21/2024 10:30 AM EDT Office Visit [facility] [address] [place] [address] Gil Gee MD [address] [place] [address] ArrivedUCSF [facility]EN[facility]FF [facility] FMComment on above:ArrivedStart: 09-02-2023 End: 22-28-3490Naxoft-up imuyivrqc13/26/2024 8:00 AM EDT Follow Up Anticoagulation [facility] Medication Therapy Management [address] [place] [address] Darrel Rangel MD [address], [address] [place] [address] [facility] Medication Therapy ManagementStart: 07-10-2023 End: 48-15-2116Bzwktw-up eczseacse12/03/2024 8:00 AM EDT Follow Up Anticoagulation [facility] Medication Therapy Management [address] [place] [address] Darrel Rangel MD [address], [address] [place] [address] [facility] Medication Therapy ManagementStart: 05-22-2023 End: 99-68-8486Xnspnf-up meshbxlpc13/15/2024 8:00 AM EDT Follow Up Anticoagulation [facility] Medication Therapy Management [address] [place] [address] Darrel Rangel MD [employer], [address] [place] [address] [facility] Medication Therapy ManagementStart: 99-05-2267NQPAC-19 Vaccine ( season)COVID-19 Vaccine ( season)[facility] Systemtart: 04-03-2023 End: 86-72-6556Tqzokj-up yyvzknpvp11/26/2024 8:00 AM EST Follow Up Anticoagulation [facility] Medication Therapy Management [address] [place] [address] Darrel Rangel MD [address] [employer], [address] [place] [address] [facility] Medication Therapy ManagementStart: 02-24-2023 End: 91-24-9820WjqnsarolUniversity Hospitals Parma Medical Centertart: 21-71-3794Xjovawgyunpg Vaccine: 65+ Years (2 of 2 - PCV)Pneumococcal Vaccine: 65+ Years (2 of 2 - PCV) [facility] HealthcareStart: 38-59-5793Inpwpojcl vaccinationINFLUENZA (Season Ended) [facility] Hospitaltart: 20-52-9126HLJWUCJH SCREENDIABETES SCREENParma Community General Hospital Start: 34-74-0121KDWIYEX DIRECTIVE DISCUSSIONADVANCE DIRECTIVE DISCUSSION [facility] Hospitaltart: 32-12-8316Tqrldlvus aortic aneurysm screeningAbdominal Aortic Aneurysm (AAA) ScreenProVan Wert County Hospital SystemStart: 44-60-8034Zrgu Risk ScreeningFall Risk ScreeningColumbus Regional Healthcare Systemtart: 2010 PNEUMOCOCCAL: 65+ (1 - PCV)PNEUMOCOCCAL: 65+ (1 - PCV)[facility] Hospitaltart: 56-91-6836FJQFEUGEQ AGE 65 AND OVER WITH 5YR LOOKBACK (#1)PNEUMOVAX AGE 65 AND OVER WITH 5YR LOOKBACK (#1)[facility] Hospitaltart: 13-77-5062TVHLNWZF VACCINE (1 of 2)SHINGRIX VACCINE (1 of 2)[facility] Hospitaltart: 62-44-8697EEzI,Tdap and Td Vaccines (1 - Tdap)DTaP,Tdap and Td Vaccines (1 - Tdap)[facility] Start: 79-09-8292Wlpom microalbumin profileDTAP,TDAP,TD (1 - Tdap)[facility] Hospitaltart: 64-98-8565Abaha BMI Follow Up PlanAdult BMI Follow Up PlanColumbus Regional Healthcare Systemtart: 99-46-2799RBUDUXNVQ C SCREENINGHEPATITIS C SCREENING [facility] Hospitaltart: 18-54-7475Kbyis depression screening assessmentDEPRESSION SCREENINGMercy Health Perrysburg Hospitaltart: 78-61-8421FXnI/Tdap/Td Vaccines (1 - Tdap) DTaP/Tdap/Td Vaccines (1 - Tdap)[facility] HealthcareStart: 03-31-1946Medicare Annual Wellness (AWV)Medicare Annual Wellness (AWV)[facility] HealthcareStart: 1945 Medicare Annual Wellness VisitMedicare Annual Wellness VisitThe [facility]vue Hospital End: 39-43-4522Lpfzg metabolic 2000 panel - Serum or PlasmaBasic Metabolic Panel Lab Routine Chronic heart failure with preserved ejection fraction (CMS-HCC) 1 Occurrences starting 03/22/2024 until 03/22/2025[facility] SystemComment on above:1 Occurrences starting 03/22/2024 until 03/22/2025asic metabolic 1999 panel - Serum or PlasmaBasic Metabolic Panel Lab Routine Chronic heart failure with preserved ejection fraction (CMS-HCC) 03/22/2024 11:29 AM ESTUC West [facility] Hospital System End: 94-01-7785Eqeex metabolic 2000 panel - Serum or PlasmaBasic Metabolic Panel Lab Routine Essential hypertension 1 Occurrences starting 10/30/2023 until [employer] Work Phone: Comment on above:1 Occurrences starting 10/30/2023 until 10/29/2024 End: 05-61-3674Aflec metabolic 2000 panel - Serum or PlasmaBasic Metabolic Panel Lab Routine Essential hypertension 1 Occurrences starting 01/29/2024 until [employer] Work Phone: Comment on above:1 Occurrences starting 01/29/2024 until 01/28/2025 End: 09-13-7405VRQ panel - Blood by Automated countCBC Lab Routine Shortness of breath 1 Occurrences starting 01/29/2024 until 01/28/2025[facility] Comment on above:1 Occurrences starting 01/29/2024 until 01/28/2025T Chest W contrast [facility] End: 32-65-0379Vexfu panelLipid panel Lab Routine Coronary artery disease involving [place] coronary artery of [place] heart without angina pectoris 1 Occurrences starting 03/22/2024 until 05/20/2024[facility] Work Phone: Comment on above:1 Occurrences starting 03/22/2024 until 05/20/2024 End: 64-14-0604Wpbvy panelLipid panel Lab Routine Coronary artery disease involving [place] coronary artery of [place] heart without angina pectoris 1 Occurrences starting 01/02/2025 until 01/02/2026[employer] Work Phone: Comment on above:1 Occurrences starting 01/02/2025 until 01/02/2026 End: 90-50-3132Xuglfjkvy [Mass/volume] in Serum or PlasmaMagnesium Lab Routine Chronic heart failure with preserved ejection fraction ([facility]) 1 Occurrences starting 03/22/2024 until 03/22/2025St. Albans HospitalNanotecture SystemComment on above:1 Occurrences starting 03/22/2024 until 03/22/2025Magnesium [Mass/volume] in Serum or PlasmaMagnesium Lab Routine Chronic heart failure with preserved ejection fraction (CMS-HCC) 03/22/2024 11:29 AM [facility] End: 70-52-1614Dnkixljxv [Mass/volume] in Serum or PlasmaMagnesium Lab Routine Essential hypertension 1 Occurrences starting 10/30/2023 until 10/29/2024 [facility]Comment [facility] above:1 Occurrences starting 10/30/2023 until 10/29/2024 End: 08-12-9058Cmk any jt lower extrem w/o contrast matrlMRI ANKLE WO IVCON LT Radiology Routine Osteonecrosis (HCC) 1 Occurrences starting 08/12/2021 until [facility] Work Phone: Comment on above:1 Occurrences starting 08/12/2021 until 3Patient [facility] Work Phone: End: 03-27-4182Ekiavbp-INRProtime-INR Lab Routine longterm (current) use of anticoagulants 1 Occurrences starting 01/29/2024until 01/28/2025[facility] HospitalComment on above:1 Occurrences starting 01/29/2024 until 01/28/2025XR FOOT GENERAL 3V AP/LAT/OBL LEFTXR FOOT GENERAL 3V AP/LAT/OBL LEFT Radiology Routine DJD (degenerative joint disease), ankle and foot, left 07/10/2021 1:07 PM [facility]TCCh[facility] Work Phone: [facility] Immunizations Immunization DateImmunizationNotesCare DwiraqpbZrfgjkqb17-00-8609cgvhhjmgz, high dose seasonal, preservative-freeGeorgette ReynoldsThe [facility] Hospital 79-68-2358xsqghlxyb virus vaccine, unspecified formulationProd.w. [facility] Med[facility] Work Phone: [phone]11-09-2023RSV, recombinant, protein subunit RSVpreF, adjuvant reconstitu, 120mcg/0.5mL, PF (Arexvy)Gil Gee MD Work Phone: noSSM Health CareTusyvimxpd11-71-1249Pewjxntet, Seasonal, Quadrivalent, AdjuvantedGil Gee MD Work Phone: noSSM Health CareSxtelumjdi76-57-9420pedchessk virus vaccine, unspecified formulation[address]11-01-2022pneumococcal polysaccharide vaccine, 23 valentMarzhou Gee MD Work Phone: [facility] HospitalYsyyjvwefd81-43-7732IBOOC-10 (Pfizer) Bivalent Booster, Age 12Y+MD Gil Gee Work Phone: [phone] [place], [place] [address]04207-05-2022zoster vaccine recombinantGil Gee MD Work Phone: [phone] HospitalEfymjnoahd38-66-9800PSIPV-46 (Pfizer)MD Gil Gee Work Phone: [phone]04-28-2022zoster vaccine recombinantGil Gee MD Work Phone: [phone] [place], [place] [address]Rthngtlkre56-91-2103DXXIJ-53 (Pfizer)MD Gil Gee Work Phone: [phone]03-15-2021COVID-19 (Pfizer)MD Gil Gee Work Phone: [phone]02-22-2021COVID-19 (Pfizer)MD Gil Gee Work Phone: [phone]10-01-2020influenza, injectable, quadrivalent, preservative freeGil Gee MD Work Phone: [facility] HospitalLtihxdqrro68-69-1353nrpwmfzso, injectable, quadrivalent, preservative freeGil Gee MD Work Phone: [facility] HospitalHlgcrmixvx56-93-7596ykwcczkss, injectable, quadrivalent, preservative freeGil Gee MD Work Phone: [facility] HospitalFtkhisgeor88-52-4487ravsflpdy, injectable, quadrivalent, preservative freeMarc Gerard RIVERA Work Phone: [facility] Payers DatePayer CategoryPayerPolicy [id number]-sqz [id number] Health InsuranceMEDICAL MUTUAL [id number] [facility] [place] [id number] [address] [place] [address] [id number] [id number] 86-88-1228Cbrrofogty IndemnityMEDICAL MUTUAL [id number] Member Subscriber Plan / Payer (Effective 2010-Present) Name: Remi Zarco Relation to Subscriber: Self Name: Remi Zarco ID: Not on file Type: Not on file Address: [address] [place] [address].2.840.164964.1.13.693.2.7.9.684948.243490.03629-77-9344Gfpx[address] Care - OtherANTH [id number]5.70237-44-2207CrrjjlpOTPCPC BLUE CARD TRADITIONAL OOS [id number] 2010-Present [phone] [address] [place] [address] Pfsapmszoeonncyohimq3848 1.2.840.242523.1.13.159.2.7.3.272353.87459-26-9758Ocqbfmm 1.2.840.644619.1.13.693.2.7.3.915270.315 2005MedicareMEDICARE MEDICARE A AND B [id number] 2004-Present [phone] [place] [address] [id number] 1.2.840.783453.1.13.159.2.7.3.279286.65801-30-3480 Medicare1.2.840.623772.1.13.693.2.7.9.203290.921566.315 1960Medicare [id number] [id number] 2.16.840.1.109413.3.579.2.99182-53-7945Bvhjrba2758484 2.16.840.1.613969.3.579.2.85262-90-6886Isvxjmt7958343 2.16.840.1.206986.3.579.2.84693-38-8516Deumfee6165900 2.16840.1.379561.3.579.2.66753-50-2238Qlvzcmw8871479 2.16.840.1.665758.3.579.2.45027-25-7538Vtuxgap1194785 2.16840.1.159995.3.579.2.35721-12-1076Kkrtiis8824391 2.16840.1.718482.3.579.2.80549-50-1344Uiucibb0177609 2.16840.1.075624.3.579.2.77224-63-4089Vitqprv2472937 2.16840.1.248617.3.579.2.96419-60-0149Hvfbjbk5264711 2.16840.1.005858.3.579.2.61129-89-7376Rgpexux6544947 2.840.1.164380.3.579.2.53780-24-9524Pimkedh924200169 2.16840.1.464126.3.579.2.164208-10-5505Pbgatzo93119090 2.840.1.692514.3.579.2.691627-43-8416Ehamldz87582244 2.16840.1.658965.3.579.2.211002-89-5796Bkdgjxi85980981 2.16840.1.706094.3.579.2.902173-33-1239Obsviyi19142240 2.16840.1.300206.3.579.2.789382-95-1435Ovxxcqp76841473 2.16.840.1.277803.3.579.2.288211-69-8049Ralbrxh0042935 2.16840.1.657960.3.579.2.227258-04-6249Wpgcvin5226418 2.16840.1.420740.3.579.2.382441-84-6282Xfdyfwd9642002 2.16840.1.772035.3.579.2.119055-95-3992Oclejfl2102688 2.16840.1.488486.3.579.2.059824-98-5039Sowaxqe4783869 2.840.1.282935.3.579.2.920064-48-6966Pzzykjs9359523 2.0.1.355697.3.579.2.957801-28-1504Bbclpzf5880350 2.840.1.313967.3.579.2.193427-81-1736Jhjwnjv6893911 2.0.1.490172.3.579.2.712766-79-5040Ydogoxv3363800 2.0.1.863162.3.579.2.655706-31-3281Roouuvv704493478 2.0.1.351023.3.579.2.576179-00-2369Ogicwqq79903786 2.840.1.920673.3.579.2.158784-54-9074Kuramgr35357617 2.840.1.529357.3.579.2.230458-85-0539Owlthag181800902 2.16840.1.725327.3.579.2.241727-69-4779Fobeqcn121924136 2.16.840.1.755894.3.579.2.724374-81-0465Tdyxslq675430018 2.16840.1.307290.3.579.2.460819-80-1238Ygffhwg774851098 2.16840.1.114110.3.579.2.588732-13-5104Aaaqdmt559141016 2.16840.1.067421.3.579.2.394239-63-0928Zivbeox723737571 2.16840.1.525825.3.579.2.919156-28-1471Lrroixs426859903 2.840.1.924373.3.579.2.135528-98-3482Acrbuyb440171768 2.0.1.840424.3.579.2.533440-63-1336Ssfrpjs619748675 2.840.1.322118.3.579.2.712654-65-7192Hfxnuyu492934489 2.0.1.644685.3.579.2.837980-73-7017Upyygxg393576255 2.0.1.770836.3.579.2.065853-72-8281Crmkbnq600237523 2.0.1.163020.3.579.2.866617-25-9585Hwuwtkm586779291 2.160.1.466931.3.579.2.900472-21-3150Fufdtcr762998305 2.840.1.505375.3.579.2.159613-33-1932Kovizul643940917 2.840.1.103518.3.579.2.690594-13-9124Vcxdwws659323124 2.16.840.1.197820.3.579.2.550409-66-8997Nyrcvzq50135580 2.16.840.1.720466.3.579.2.948602-87-2949Fyhcnvh27068138 2.16.840.1.903860.3.579.2.708200-03-9954Hjivmmh17278016 2.16.840.1.967995.3.579.2.964545-56-3757Sislerp61146990 2.16.840.1.655561.3.579.2.752594-56-4858Gjwkbrk46496323 2.16.840.1.514820.3.579.2.203786-01-4185Nfyjsvk92273153 2.16.840.1.119230.3.579.2.2206Jssuqcf35855404 2.840.1.699127.3.579.2.531 Fcmoedj83812262 2.16840.1.275220.3.579.2.531 Social History DateTypeDetailFacilityStart: 05-21-2015 End: 86-64-3413Uuihsqk smoking status NHISEx-smokerMercy Health Perrysburg Hospitaltart: 03-09-1967 End: 46-58-1239Kkyxnik of tobacco useCurrent smokerMercy Health Perrysburg Hospitaltart: 03-09-1967 End: 50-21-4654Jymiwpl of tobacco useCigarette SmokerMercy Health Perrysburg Hospitaltart: 05-21-2015 End: 10-37-2910Upavvvibab smoked current (pack per day) - Gnphhrpd6RQFU HealthcareStart: 05-21-2015 End: 23-13-1959Rggnaeu use and exposureSmokeless tobacco non-userMercy Health Perrysburg Hospitaltart: 03-26-2018 End: 67-23-7781Vlckycq intakeCurrent drinker of alcohol (finding)[facility] Hospitaltart: 18-37-0970Rnwecoi SDOH Alcohol CommentrareCleveland ClinicStart: 06-31-7167Onh Assigned At BirthNot on Marthacleveland clinic mentor hospital ClinicStart: 06-04-2021 End: 78-78-6594Xsezyvrn to SARS-CoV-2 (event)Not sureLake Butler ClinicStart: 04-19-2020 End: 66-22-4815Mcf Assigned At [facility] HealthcareStart: 39-17-7481Nri Assigned At [place] HospitalHistory of tobacco usePassive smokerNOGA HealthcareStart: 10-28-2023 End: 41-99-7400Gggyrrliq beverage intakeLifetime non-drinker (finding)[facility] HealthcareStart: 91-00-0416Lqguews CommentLight smoker (1-9 cigs /day)[facility] HealthcareStart: 47-48-2981Sokffgp Commentcaffeine intake : 1-2 cups per dayBLUE MOUNTAIN [facility]OSPITAL HealthcareStart: 02-15-2024 End: 70-43-0080Qxgdndkfh beverage intakeEx-drinker (finding)[facility] FlyCast SystemHas the Xormis, oil, or water Content Savvy threatened to shut off services in your home in past 12[facility] FlyCast SystemStart: 05-21-2022 Adolescent depression screening vlclgwsvkq4SqcRzwsxo FlyCast SystemStart: 77-09-0766Mayxgsq Commentdrinks occasionallyUC [facility] SystemStart: 00-40-6233YdbZfoc (finding)[facility] FlyCast SystemHow often do you have a drink containing alcohol?Monthly or lessProMedical Center Barbour FlyCast SystemHow many standard drinks containing alcohol do you have on a typical day?1 or 2PWinn Parish Medical Center FlyCast SystemHow often do you have 6 or more drinks on 1 occasion?NeverUC [facility] Hospital System Medical Equipment Procedure CodeEquipment CodeEquipment Original TextEquipment IdentifierDatesHead Rsp 36mm Neutral Glenoid Retain Screw - [id number]: 04-02-2018 Insert Rsp Djo Surgical Standard Hxe+ Socket Sterile Humeral - [id number]: 35-03-1934Jeau Altivate Djo Surgical 14 Standard 108mm Humeral Sterile Shoulder - [id number]: 95-51-3873Akfpklosf Rsp P2 30mm Glenoid Sterile - [id number]: 64-81-0834Iwalw Rsp 5mm 26mm Bone Lock Glenoid Baseplate Shoulder - [id number]: 47-64-0678Fdusa Rsp 5mm 30mm Bone Lock Glenoid Baseplate Shoulder - [id number]: 79-06-9596Zsdtw Rsp 5mm 26mm Bone Lock Glenoid Baseplate Shoulder - [id number]: 68-35-3444Qnifc Rsp 5mm 18mm Bone Lock Glenoid Baseplate Shoulder - [id number]: 59-31-9259Etawxg Clsr 40mm Penditure Tip First Slf Clsng Strl - Slaac40 - [id number]: 02-15-2024 Goals DatePatient GoalDesired Activity/StatePersonal health goalComment on above: Evaluation of progress towards goal: patient progressing toward safe discharge. Functional Status CdybHfxawzdqztWdmtddFlxjikyo90-89-5566Rmkwb score [AUDIT-C]1 01/02/2025 10:00 AM EDT Carolyn Delgado CMAThe [facility]vue Hospital11-11-2024Patient Health Questionnaire 2 item (PHQ-2) [Reported][facility] HospitalHotaemgjhg63-65-5157Ninjxhj Health Questionnaire 2 item (PHQ-2) [Reported][facility] Work Phone: [phone] [place] [address] Clinical Notes 06-14-2021 to 01-06-2025 Note Date & MxyoIjwqVrmdldkx54-82-4642 History of Present illness Narrative* Beck Weeks, [facility] - 01/06/2025 8:00 AM EDT 15 minute heiv-nx-omzh follow-up anticoagulation appointment. INR performed in office per protocol. INR 2.0 (goal range: 2.0-3.0). Patient reports: Taking warfarin dosing as documented. Missed or extra doses of warfarin: No Changes to medications: No Changes to lifestyle (diet / alcohol / smoking / activity): No Recent emergency department visit / hospitalization / health changes / new contraindication to current anticoagulant: Yes IN early Dec, Pt had very dark stools for about 2 weeks, was feeling run down, was assessed, no specific bleeding found, it resolved itself, all back to vidya the last 2 weeks Signs/symptoms of bruising/bleeding or clotting or any intolerable adverse events: No Upcoming procedures: Yes Has appt with Dr Lynch on 01/09 to find out if he's cleared for a foot surgery in near future Anticoagulant prescription needed: No Seen referring provider in the last year Duration of therapy reviewed Assessment: INR is remaining stable in therapeutic range on current warfarin regimen. No change, INR in 8 weeks like usual, but pt knows we will need to be alerted if he is to have surgery before ournext appt Plan: Patient instructed to continue warfarin 2 mg Mon and 4 mg AOD. Check INR in 8 week(s). Patient verbalizes understanding of anticoagulant dosing instructions and information discussed. Dosing regimen, counseling, and follow-up appointment were provided to the patient. Patient reminded to call with questions or any medication changes. Patient instructed to seek medical attention if anymajor bleeding/bleeding that persists or worsens. Beck Weeks RPH 01/06/25 0812 documented in this encounterCincinnati Shriners HospitalMightyMeeting Insight Surgical HospitalJiccfc61-32-0900 History of Present illness Narrative* Suamn Winn, JEAN MARIE-VOICE ENGINEER - 01/02/2025 10:00 AM EDT Remi Zarco Date of visit: 01/02/2025 Date of : 1945 Age: 79 y.o. 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 90 tablet 1 furosemide (LASIX) 20 mg tablet Take 1 tablet (20 mg total) by mouth daily. 90 tablet 3 levothyroxine (SYNTHROID, LEVOTHROID) 100 MCG tablet Take by mouth daily. metoprolol succinate XL (TOPROL XL) 25 mg 24 hr tablet Take 0.5 tablets (12.5 mg total) by mouth daily with dinner. 90 tablet 3 salmon oil/omega-3 fatty acids (SALMON OIL-1000 ORAL) Take 2 g by mouth in the morning. warfarin (COUMADIN) 4 mg tablet Take 0.5-1 tablets (2-4 mg total) by mouth in the evening. As directed by PPMM. 90 tablet 1 No current facility-administered medications for this visit. Chief Complaint Patient presents with Follow-up EST PT F/U 6 MS ECHO DONE L/S MBO SCHED W/PT History of Present Illness RP is a 79 yo M who presents to the office today for his 6 month follow up. He has a hx of CAD s/p CABG, HTN, and persistent atrial fibrillation on warfarin. TTE from 07/2024 had EF 50-55% with gradeII DD, mod MR/TR and mild AR; aortic root is dilated 4.8 cm, hypokinetic basal inferoseptal wall, severe atrial myopathy with KYLAH 69.2 ml/m2 , size 6.6 cm . His CABG x3 involved JANE lad, SVG to OM 2, SVG to PDA on 02/15/2024; he also had MARGY ligation at that time. Today, he denies CP, SOB, or palpitations at this time. He has finished cardiac rehab and now uses a stationary bike every day. Patient was seen when Dr. Gee was readily available in office. Past Medical History: Diagnosis Date Atrial fibrillation (CMS-HCC) Disease of thyroid gland Hypercholesteremia Hypertension Hypothyroidism Lung nodule Shortness of breath Visual impairment glasses No data recorded No data recorded No data recorded Past Surgical History: Procedure Laterality Date ANKLE FUSION Left 01/06/2022 Cardiac Invasive N/A 02/09/2024 Performed by Brad Greer MD at [facility] CARDIAC CATH LABS COLONOSCOPY N/A 04/25/2021 Performed by Tr Lynch DO at [facility] Coronary angiogram and right heart N/A 02/09/2024 Performed by Brad Greer MD at [facility] CARDIAC CATH LABS CORONARY ARTERY BYPASS GRAFT X3(JANE, SVGX2) LIGATION OF LEFT ATRIAL APPENDAGE WITH 40 mm PENDITURE/EVH OF LEFT UPPER AND LOWER LEG/TONG N/A 02/15/2024 Performed by Manuel Barnes MD at [facility] EXCISION CYST PERINEUM N/A 04/25/2021 Performed by Tr Lynch DO at [facility] TOTAL KNEE BILATERAL SHOULDER SURGERY [...] on file Food Insecurity: No Food Insecurity (01/02/2025) Hunger Screening Food Insecurity - Worry: Never [...] of Systems Review of Systems Constitutional: Negative. Negative for malaise/fatigue. HENT: Positive for hearing loss. Eyes: Negative. Cardiovascular: Negative. Respiratory: Negative. Endocrine: Negative. Hematologic/Lymphatic: Bruises/bleeds easily. Skin: Negative. Musculoskeletal: Positive for arthritis. Gastrointestinal: Negative. Genitourinary: Negative. Neurological: Positive for numbness. Psychiatric/Behavioral: Negative. Allergic/Immunologic: Positive for environmental allergies. Vascular: Negative. CARDIOVASCULAR: Please review HPI. Physical [...] RRR with normal S1 and S2 with mild murmurs. Gastrointestinal: Soft, non-tender. Bowel sounds normal. Musculoskeletal: No peripheral edema. Neurologic: Oriented to time, person and place, affect appropriate. No focal/major motor defects noted. Psychiatric: Appropriate mood, memory and judgement. VITAL SIGNS: BP 126/74 Pulse 81 Ht 182.9 cm (6') Wt 97.1 kg (214 lb) SpO2 98% BMI 29.02 kg/m No orders of the defined types were placed in this encounter. Medications Discontinued During This Encounter Medication Reason alum-mag hydroxide-simeth (MAALOX) 200-200-20 mg/5 mL suspension Therapy completed bisacodyL (DULCOLAX) 10 mg suppository Therapy completed enoxaparin (LOVENOX) 120 mg/0.8 mL syringe Therapy completed magnesium hydroxide (MILK OF MAGNESIA) 400 mg/5 mL suspension Therapy completed melatonin (CIRCADIN) 5 mg tablet Therapy completed tamsulosin (FLOMAX) 0.4 mg capsule Therapy completed pantoprazole (PROTONIX) 40 mg EC tablet Therapy completed warfarin (COUMADIN) 4 mg tablet Duplicate Listing ONP9AR7-Tymx Score: 3 3.2% Stroke risk per year, 4.6% risk of stroke/TIA/systemic embolism IMPRESSIONS/PLAN 1. Coronary artery disease involving [place] coronary artery of [place] heart without angina pectoris - Lipid panel; Future 2. Essential hypertension 3. Left ventricular dysfunction 4. Persistent atrial fibrillation (CMS-HCC) 5. Pulmonary hypertension (CMS-HCC) 6. Anticoagulated on Coumadin PLAN He has an upcoming surgery for his ankle, I have provided clearance. Echo shows preserved LVEF, stable valvulopathy. Aortic root is also in stable range compared to previous echoes. BP and HR are well controlled on toprol and inspra. He appears euvolemic on low dose lasix. He is due for lipid panel. Continue cardiac medications. Recommend follow up in 6 months TODAYS ORDERS Orders Placed This Encounter Procedures Lipid panel FOLLOW UP No follow-ups on file. PCP: GIL GEE MD Referring Physician: Gil Gee MD [address] [place] [address] PHILIPP Sullivan 01/02/25 1028 PHILIPP Sullivan 01/02/25 1028 documented in this [facility]10-27-2025 Instructions* Patient Instructions* PHILIPP Sullivan - 01/02/2025 10:00 AM EDT Have written a letter of clearance for your ankle surgery BP and HR are well controlled. Please have your cholesterol labs sent over if available If not, you can have a redraw at your leisure, it is a fasting lab. Please do not eat for 8-10 hrs prior Continue cardiac medications. Recommend follow up in 6 months. Please call the office if you develop new or worsening symptoms and we will see you sooner. documented in this [facility]10-24-2025 Miscellaneous Notes* Telephone Encounter - Zeinab uQevedo CMA - 12/30/2024 2:10 PM EDT Left message for patient to remind them to bring their most current medication list with them to their appointment. documented in this [facility]10-24-2025 Telephone encounter Note* Telephone Encounter - Zeinab Quevedo CMA - 12/30/2024 2:10 PM EDT Left message for patient to remind them to bring their most current medication list with them to their appointment. [facility]10-09-2025 Miscellaneous Notes* Telephone Encounter - Bonnie Cee - 12/15/2024 10:06 AM EDT Called Remi regarding the hematochezia and history of colon polyps referral that our office received from Dr Gee, left a message on voicemail to call the office back to schedule an appointment. * Telephone Encounter - Bonnie Cee - 12/15/2024 10:06 AM EDT Remi called the office back and we scheduled him an appointment on 01/09/2025 with Adilia Tesfaye NP. documented in this encounterThe [facility]vue Hospital10-09-2025 Telephone encounter Note* Telephone Encounter - Bonnie Cee - 12/15/2024 10:06 AM EDT Called Remi regarding the hematochezia and history of colon polyps referral that our office received from Dr Gee, left a message on voicemail to call the office back to schedule an appointment. [facility]10-09-2025 Telephone encounter Note* Telephone Encounter - Bonnie Cee - 12/15/2024 10:06 AM EDT Remi called the office back and we scheduled him an appointment on 01/09/2025 with Adilia Tesfaye NP. [facility]09-05-2025 History of Present illness Narrative* Beck Weeks, [facility] - 11/11/2024 8:00 AM EDT 15 minute enic-pv-wvjy follow-up anticoagulation appointment. INR performed in office [...] Patient instructed to seek medical attention if anymajor bleeding/bleeding that persists or worsens. Beck Weeks RPH 11/11/24 0812 documented in this encounterThe [facility] Hospital07-17-2025 History of Present illness Narrative* Adilia Multani, BOB - 09/22/2024 8:30 AM EDT Images from the original note were not included. Subjective Patient ID: Remi Zarco is a 79 y.o. male who presents for Toenail Care. Established patient returns for his ABN nail care.His nails are difficult for him to trim, they arethick, incurvated, elongated, fungal. He understands he has no systemic qualifiers for nail debridement according to his insurance, ABN signed prior to treatment. Patient had cardiac bypass procedureDecemb2023 after an annual echocardiogram showed irregularities. He [...] tablet (100 mcg) by mouth in the morning.Take before meals., Disp: 90 tablet, Rfl: 3 [...] CELL CARCINOMA EXCISION 02/24/2023 Excision BCC left cheek/Zoroastrian with repair, excision lesion right catholic COLONOSCOPY 04/2021 CORONARY ARTERY BYPASS GRAFT 3 [...] myoctic. Nail 5 L is 3mm thick, elongated,raised, fungal. ULCER:none. Neurological: Mental Status: He is alert and oriented to person, place, and time. Comments: Light touch sensation intact VIBRATORY:Pt able to feel vibration beginning and ceasing medial lateral: Left and right foot.. SEMMES-TINO 5.07 MONOFILAMENTHe was able to feel 5.0 7 monofilament wire and 9/9 locations plantar aspect left and right foot.. Psychiatric: Mood and Affect: Mood normal. 48010 - ABN Assessment/Plan ICD-10-CM 1. Onychomycosis B35.1 ABN reviewed and signed. Conservative and palliative care implemented as per request. Under aseptictechnique all nails debrided with large and small [...] understanding. Adilia Multani DPM documented in this encounterSoutheast Missouri HospitalIxnpfivozg97-34-6809 History of Present illness Narrative* Beck Weeks RP - 09/16/2024 8:00 AM EDT 15 minute vvee-bj-yods follow-up anticoagulation appointment. INR performed in office [...] Patient instructed to seek medical attention if anymajor bleeding/bleeding that persists or worsens. Beck Weeks RPH 09/16/24 0807 documented in this encounterThe [facility] Hospital06-12-2025 Miscellaneous Notes* Telephone Encounter - Mag Olmstead RN - 08/18/2024 8:55 AM EDT Pt calls asking if he can be [...] the Inspra now?? Pls review and advise * Telephone Encounter - Vincent Ching MD - 08/18/2024 8:55 AM EDT Gynecomastia growing breast is a side effect of Aldactone not losartan If he still feels strongly that the losartan causes this to him then that is fine give him whateverhe is comfortable taking * Telephone Encounter - Mag Olmstead RN - 08/18/2024 8:55 AM EDT Pt notified MBO response and would like to go back to the Inspra 25. Pt still have some and does not need a new rx at this time. Pt will call back if further problems. documented in this encounterThe [facility]vue Hospital06-12-2025 Telephone encounter Note* Telephone Encounter - Mag Olmstead RN - 08/18/2024 8:55 AM EDT Pt calls asking if he can be [...] the Inspra now?? Pls review and advise [facility]06-12-20[facility] Telephone encounter Note* Telephone Encounter - Vincent Ching MD - 08/18/2024 8:55 AM EDT Gynecomastia growing breast is a side effect of Aldactone not losartan If he still feels strongly that the losartan causes this to him then that is fine give him whateverhe is comfortable taking [facility]06-12-2025 Telephone encounter Note* Telephone Encounter - Mag Olmstead RN - 08/18/2024 8:55 AM EDT Pt notified MBO response and would like to go back to the Inspra 25. Pt still have some and does not need a new rx at this time. Pt will call back if further problems. [facility]06-04-2025 Miscellaneous Notes* Telephone Encounter - Haylie Plasencia CMA - 08/10/2024 9:56 AM EDT Phoned pt's sister and lm on advising that appt scheduled for 12/20/24 has been cancelled and rescheduled for 01/02/25 and to have pt call if date and time do not work. documented in this encounterThe [facility]06-[facility] Telephone encounter Note* Telephone Encounter - Haylie Plasencia CMA - 08/10/2024 9:56 AM EDT Phoned pt's sister and lm on vm advising that appt scheduled for 12/20/24 has been cancelled and rescheduled for 01/02/25 and to have pt call if date and time do not work. [facility]05-20-2025 History of Present illness Narrative* Suman Garcia MD - 07/26/2024 1:05 PM EDT Skin Check Location: Patient requests a skin [...] lesions that fail to resolve should be re- evaluated. Cryotherapy performed today; see procedure note Diagnosis: Actinic keratosis Indication: Precancerous Location: see skin exam Consent: Verbal consent was obtained and risks were discussed, including, but not limited to risks of scarring, darker or regulatory auditor pigmentary changes, recurrence, incomplete removal and infection. [...] benign pigmented lesions that occur on sun-exposed andsun-damaged skin. No treatment is necessary. Recommended regular [...] 1 year, skin check documented in this encounterSoutheast Missouri [id number] History of Present illness Narrative* Gil Gee MD - 07/18/2024 12:30 PM EDTAssociated Problem(s): Persistent atrial fibrillation (HCC) (CMS/HCC) In afib but rate controlled. Continue medication and follow up with cardiology. * Gil Gee MD - 07/18/2024 12:29 PM EDTAssociated Problem(s): Osteoarthritis, generalized Pain without mobic and use tylenol PRN. * Gil Gee MD - 07/18/2024 12:29 PM EDTAssociated Problem(s): Coronary artery disease (CMS/HCC) Doing well after bypass and follow with cardiology. * Gil Gee MD - 07/18/2024 12:29 PM EDTAssociated Problem(s): Chronic HFrEF (heart failure with reduced ejection fraction) (CMS/HCC) Patient stable and follow with cardiology. * Gil Gee MD - 07/18/2024 12:29 PM EDTAssociated Problem(s): Benign hypertension (CMS/HCC) BP controlled and monitor PRN. * Gil Gee MD - 07/18/2024 10:30 AM EDT Images from the original note were not [...] and follow with cardiology. documented in this encounterSoutheast Missouri [id number] History of Present illness Narrative* Irene Boland, [facility] - 07/15/2024 8:00 AM EDT 15 minute njvj-eq-tflp follow-up anticoagulation appointment. INR performed in office [...] been 1.6, 1.9, 2.2, indicating dose increase isneeded. We will boost x1 today, then increase [...] Patient instructed to seek medical attention if anymajor bleeding/bleeding that persists or worsens. Irene Boland [facility] 07/15/24 0811 documented in this encounterCincinnati Shriners HospitalHackerOne [id number] History of Present illness Narrative* Vincent Ching MD - 06/20/2024 10:00 AM EDT Remi Hathaway Matthew Date of visit: 06/20/2024 Date of : 1945 Age: 79 y.o. 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 180 tablet 3 salmon oil/omega-3 fatty acids (SALMON OIL-1000 ORAL) Take 2 g by mouth in the morning. warfarin (COUMADIN) 4 mg tablet Take 0.5-1 tablets (2-4 mg total) by mouth in the evening. As directed by [facility]. 90 tablet 1 alum-mag hydroxide-simeth (MAALOX) 200-200-20 [...] Every 12 (twelve) hours. [facility] (Medication Therapy Management) (Patient not taking: Reportedon 06/20/2024) 8 mL 0 magnesium hydroxide (MILK [...] mouth in the evening. As directed by [facility]. (Patient not taking: Reported on 06/20/2024) 30 [...] 01/06/2022 Cardiac Invasive N/A 02/09/2024 Performed by Bard Greer MD at [facility] CARDIAC CATH LABS COLONOSCOPY N/A 04/25/2021 Performed by Tr Lynch DO at [facility] Coronary angiogram and right heart N/A 02/09/2024 Performed by Brad Greer MD at [facility] CARDIAC CATH LABS CORONARY ARTERY BYPASS GRAFT X3(JANE, SVGX2) LIGATION OF LEFT ATRIAL APPENDAGE WITH 40 mm PENDITURE/EVH OF LEFT UPPER AND LOWER LEG/TONG N/A 02/15/2024 Performed by Manuel Barnes MD at [facility] EXCISION CYST PERINEUM N/A 04/25/2021 Performed by Tr Lynch DO at [facility] REPLACEMENT TOTAL KNEE BILATERAL SHOULDER SURGERY Bilateral [...] the morning. There are no discontinued medications. [id number] Score: 3 3.2% Stroke risk per year, [...] Referring Physician: Gil Gee MD [address] [place] [address] documented in this encounterThe [facility]04-14-[facility] Instructions* Patient Instructions* Vincent Ching MD - 06/20/2024 10:00 AM EDT STOP EPELRENONE STOP LOPRESSOR START LOSARTAN START TOPROL GET THE BLOOD WORK IN A WEEK ECHOCARDIOGRAM AT YOUR [facility] documented in this encounterThe [facility]04-11-[facility]25 Miscellaneous Notes* Telephone Encounter - Haylie Plasencia CMA - 06/17/2024 8:35 AM EDT Left message for patient to remind them to bring their most current medication list with them to their appointment. documented in this encounterThe [facility]04-[facility] Telephone encounter Note* Telephone Encounter - Haylie Plasencia CMA - 06/17/2024 8:35 AM EDT Left message for patient to remind them to bring their most current medication list with them to their appointment. [facility]04-07-2025 Miscellaneous Notes* Telephone Encounter - No Newberry - 06/13/2024 8:03 AM EDT Patient called for refill on warfarin, 4mg tablets. He would like a 30-day supply called in to the [facility] in [place], and his regular 90-day supply sent to [facility]. * Telephone Encounter - Irene Boland RPH - 06/13/2024 8:03 AM EDT Noted. Last [facility] visit 05/27/24. Referring provider Dr. Correia ([facility]) with last OV 03/22/24. Current warfarin dose 2 mg Mon/Thurs and 4 mg AOD. Warfarin 4 mg #30 w/ 1 RF sent to [facility]. Will wait to send to mail order until this afternoon to ensure local script is filled first. Appears refills were sent on 05/18/2024 by [facility] to [facility] already, but they were not filled. Irene Boland, Isabel, [facility] June 13, 2024 8:55 AM documented in this encounterThe [facility]04-07-2025 Telephone encounter Note* Telephone Encounter - No Newberry - 06/13/2024 8:03 AM EDT Patient called for refill on warfarin, 4mg tablets. He would like a 30-day supply called in to the [facility] in [place], and his regular 90-day supply sent to [facility]. [facility]04-07-2025 Telephone encounter Note* Telephone Encounter - Irene Boland RPH - 06/13/2024 8:03 AM EDT Noted. Last [facility] visit 05/27/24. Referring provider Dr. Correia ([facility]) with last OV 03/22/24. Current warfarin dose 2 mg Mon/Thurs and 4 mg AOD. Warfarin 4 mg #30 w/ 1 RF sent to [facility]. Will wait to send to mail order until this afternoon to ensure local script is filled first. Appears refills were sent on 05/18/2024 by [facility] to [facility] already, but they were not filled. Irene Boland PharmD, BCPS June 13, 2024 8:55 AM [facility] History of Present illness Narrative* Irene Boland RPH - 05/27/2024 8:00 AM EDT 15 minute qnyj-vt-qlin follow-up anticoagulation appointment. INR performed in office [...] Patient instructed to seek medical attention if anymajor bleeding/bleeding that persists or worsens. Irene Boland RPH 05/27/24 0808 documented in this encounterThe [facility]03-[facility] Miscellaneous Notes* Telephone Encounter - Brina Mcfadden RN - 05/16/2024 9:35 AM EDT Last ov 03/22/2024 Labs 03/22/2024 documented in this encounterThe [facility]03-10-2025 Telephone encounter Note* Telephone Encounter - Brina Mcfadden RN - 05/16/2024 9:35 AM EDT Last ov 03/22/2024 Labs 03/22/2024 [facility]02-28-2025 Miscellaneous Notes* Telephone Encounter - Kanwal Langston RN - 05/06/2024 1:39 PM EST Pt arrived for his CR assessment. In discussion of program it was determined that driving here 3x week may be too much. Patient does live a little closer to [place] and runs errands there as well sodecision made to sign up for Cardiac Rehab there. Information to that department provided to patient and referral faxed to TB. documented in this encounterThe [facility]02-28-2025 Telephone encounter Note* Telephone Encounter - Kanwal Langston RN - 05/06/2024 1:39 PM EST Pt arrived for his CR assessment. In discussion of program it was determined that driving here 3x week may be too much. Patient does live a little closer to [place] and runs errands there as well sodecision made to sign up for Cardiac Rehab there. Information to that department provided to patient and referral faxed to TB. [facility]01-31-2025 History of Present illness Narrative* Charli Stephens, [facility] - 04/08/2024 10:30 AM EST 15 minute sbpe-ae-ulkh follow-up anticoagulation appointment. INR performed in office [...] Patient instructed to seek medical attention if anymajor bleeding/bleeding that persists or worsens. Charli Stephens RPH 04/08/24 1038 documented in this [facility]01-30-2025 Miscellaneous Notes* Telephone Encounter - Charli Stephens RPH - 04/07/2024 2:14 PM EST [facility] pharmacist will not in tomorrow. Called patient and left message requesting to reschedule visitto next week. documented in this [facility]01-30-2025 Telephone encounter Note* Telephone Encounter - Charli Stephens RPH - 04/07/2024 2:14 PM EST [facility] pharmacist will not in tomorrow. Called patient and left message requesting to reschedule visitto next week. [employer] [id number] Miscellaneous Notes* Telephone Encounter - Vanessa Wilkes RN - 03/26/2024 8:10 AM EST ----- Message from ASHLEY Mendez sent at 03/26/2024 8:10 AM EST ----- Contract: [facility] Refill request for metoprolol 25mg twice a day. * Telephone Encounter - Vanessa Wilkes RN - 03/26/2024 8:10 AM EST Contract: [facility] Pt calling regarding refill request for metoprolol 25mg twice a day. Three refills remaining. Expiration date 03/22/25. Seen by Nancy CONNOLLY on 03/22/24. Order placed for mail order. Pt states it typically take about 1 week to arrive. Has enough meds to get through today and then he'll be completelyout. Requesting 5 day supply to get him through until mail order arrives. Reason for Disposition [1] Prescription refill request for ESSENTIAL medicine (i.e., likelihood of harm to patient if not taken) AND [2] triager unable to refill per department policy Protocols used: Medication Refill and Renewal Call-A-AH * Telephone Encounter - Vanessa Wilkes RN - 03/26/2024 8:10 AM EST On-call provider notified via secure chat message of Pt's refill request. Awaiting response. * Telephone Encounter - Vanessa Wilkes RN - 03/26/2024 8:10 AM EST Message received from TENZIN Jimenez to call in 30 day supply of metoprolol 25mg BID. * Telephone Encounter - Vanessa Wilkes RN - 03/26/2024 8:10 AM EST Order called in to [facility]. Spoke to pharmacist Carolyn. * Telephone Encounter - Vanessa Wilkes RN - 03/26/2024 8:10 AM EST Pt contacted and updated. * Telephone Encounter - Yolanda Curry RN - 03/26/2024 8:10 AM EST After hours not reviewed. Nothing further needed at this time. documented in this encounterCincinnati Shriners HospitalTinkoff Digital01-18-2025 Telephone encounter Note* Telephone Encounter - Vanessa Wilkes RN - 03/26/2024 8:10 AM EST ----- Message from ASHLEY Mendez sent at 03/26/2024 8:10 AM EST ----- [facility] for metoprolol 25mg twice a day. [facility] [id number] Telephone encounter Note* Telephone Encounter - Vanessa Wilkes RN - 03/26/2024 8:10 AM EST Contract: [facility] Pt calling regarding refill request for metoprolol 25mg twice a day. Three refills remaining. Expiration date 03/22/25. Seen by Nancy CONNOLLY on 03/22/24. Order placed for mail order. Pt states it typically take about 1 week to arrive. Has enough meds to get through today and then he'll be completelyout. Requesting 5 day supply to get him through until mail order arrives. Reason for Disposition [1] Prescription refill request for ESSENTIAL medicine (i.e., likelihood of harm to patient if not taken) AND [2] triager unable to refill per department policy Protocols used: Medication Refill and Renewal Call-A- [employer] [id number] Telephone encounter Note* Telephone Encounter - Vanessa Wilkes RN - 03/26/2024 8:10 AM EST On-call provider notified via secure chat message of Pt's refill request. Awaiting response. [employer] [id number] Telephone encounter Note* Telephone Encounter - Vanessa Wilkes RN - 03/26/2024 8:10 AM EST Message received from TENZIN Jimenez to call in 30 day supply of metoprolol 25mg BID. [employer] [id number] Telephone encounter Note* Telephone Encounter - Vanessa Wilkes RN - 03/26/2024 8:10 AM EST Order called in to [facility]. Spoke to pharmacist Carolyn. [facility] DaytonFle[facility] [id number] Telephone encounter Note* Telephone Encounter - Vanessa Wilkes RN - 03/26/2024 8:10 AM EST Pt contacted and updated. [employer] [id number] Telephone encounter Note* Telephone Encounter - Yolanda Curry RN - 03/26/2024 8:10 AM EST After hours not reviewed. Nothing further needed at this time. [facility]01-17-2025 Miscellaneous Notes* Telephone Encounter - Davion Jackson RN - 03/25/2024 3:26 PM EST Received message to r/c to pt regarding medications questions. [facility] [employer] asked for r/c to office to further discuss. documented in this encounterThe [facility]01-17-2025 Telephone encounter Note* Telephone Encounter - Davion Jackson RN - 03/25/2024 3:26 PM EST Received message to r/c to pt regarding medications questions. [facility] ([facility] [employer] asked for r/c to office to further discuss. [facility]01-16-2025 History of Present illness Narrative* Adilia Multani DPM - 03/24/2024 1:00 PM EST Images from the original note were not [...] atrial bypass February 2024 after an annual ech ocardiogram showed irregularities. His recovery required ambulation in [...] CELL CARCINOMA EXCISION 02/24/2023 Excision BCC left cheek/Zoroastrian with repair, excision lesion right catholic COLONOSCOPY 04/2021 CORONARY ARTERY BYPASS GRAFT 3 [...] myoctic. Nail 5 L is 3mm thick, elongated,raised, fungal. ULCER:none. Neurological: Mental Status: He is alert and oriented to person, place, and time. Comments: Light touch sensation intact VIBRATORY:Pt able to feel vibration beginning and ceasing medial lateral: Left and right foot.. SEMMES-TINO 5.07 MONOFILAMENTHe was able to feel 5.0 7 monofilament wire and 9/9 locations plantar aspect left and right foot.. Psychiatric: Mood and Affect: Mood normal. 86634 - ABN Assessment/Plan ICD-10-CM 1. Onychomycosis B35.1 [...] understanding. Adilia Multani DPM documented in this encounterSoutheast Missouri [id number] History of Present illness Narrative* Nancy Ovalle PA-C - 03/22/2024 11:00 AM EST Remi Zarco Date of visit: 03/22/2024 Date of : 1945 Age: 78 y.o. 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 as [facility] by [facility] (Medication Therapy Management) 8 mL 0 [...] (25 mg total) by mouth every 12 (twelve)hours. 180 tablet 3 pantoprazole (PROTONIX) 40 mg [...] with Follow-up S/P CABG x3 02/15/2024 - [facility] History of Present Illness Patient is a 70-year-old female with a past medical history of ASCVD CABG x3 02/15/2024 when preserved EF, hypertension, hyperlipidemia, hypothyroidism, ascending aortic aneurysm longstanding persistent atrial fibrillation rate controlled. Patient noted to have shortness of breath when he exerts himself and underwent left and right heartcatheterization to further evaluate on 02/08/2022 which revealed [...] he has not been able to exercise asmuch as he would like due to his ankle pain is currently in the process of considering an ankle replacement. No shortness of breath at rest, no complaints of swelling, denies heart racing sensation with his atrial fibrillation, no lightheadedness or near-syncope. Past Medical History: Diagnosis Date Atrial fibrillation ([facility]) Disease of thyroid gland Hypercholesteremia Hypertension Hypothyroidism Lung nodule Shortness of breath Visual impairment glasses No data recorded No data recorded No data recorded Past Surgical History: Procedure Laterality Date ANKLE FUSION Left 01/06/2022 Cardiac Invasive N/A 02/09/2024 Performed by Brad Greer MD at [facility] CARDIAC CATH LABS COLONOSCOPY N/A 04/25/2021 Performed by Tr Lynch DO at [facility] Coronary angiogram and right heart N/A 02/09/2024 Performed by Brad Greer MD at [facility] CARDIAC CATH LABS CORONARY ARTERY BYPASS GRAFT X3(JANE, SVGX2) LIGATION OF LEFT ATRIAL APPENDAGE WITH 40 mm PENDITURE/EVH OF LEFT UPPER AND LOWER LEG/TONG N/A 02/15/2024 Performed by Manuel Barnes MD at [facility] EXCISION CYST PERINEUM N/A 04/25/2021 Performed by Tr Lynch DO at [facility] TOTAL KNEE BILATERAL SHOULDER SURGERY [...] metoprolol tartrate (LOPRESSOR) 25 mg tablet Reorder [id number] Score: 3 3.2% Stroke risk per year, 4.6% risk of stroke/TIA/systemic embolism IMPRESSIONS/PLAN 1. Coronary artery disease involving [place] coronary artery of [place] heart without angina pectoris -SP CABG x3 JANE-LAD,SVG-2OM, SVG-PDA -continue aspirin 81 mg -continues to have dyspnea on exertion, overall stable states it is not too bad discuss to continue cardiac rehab as tolerated, we will recent his referral to the [place] office and monitor his symptoms following this. 2. Persistent atrial fibrillation ([facility]) - rates well controlled continue metoprolol tartrate 25 mg -anticoagulated on warfarin unable to afford Eliquis -presence of 40mm Penditure clip, discussed can consider coming off anticoagulation if TONG or CT iscompleted in the future, for now will stay [...] Procedures Lipid panel Basic Metabolic Panel Magnesium [facility] FOLLOW UP Return in about 3 months (around 06/20/2024). PCP: GIL GEE MD Referring Physician: Gil Gee MD [address] [place] [address] Nancy Ovalle PA-C 03/22/24 1129 documented in this encounterCincinnati Shriners HospitalMightyMeeting Insight Surgical [id number] Instructions* Patient Instructions* Nancy Ovalle PA-C - 03/22/2024 11:00 AM [...] or sooner as needed documented in this encounterCincinnati Shriners HospitalMightyMeeting Insight Surgical [id number] History of Present illness Narrative* Irene Boland, [facility] - 03/22/2024 10:15 AM EST 15 minute cehk-qn-hfeu follow-up anticoagulation appointment. INR performed in office [...] Patient instructed to seek medical attention if anymajor bleeding/bleeding that persists or worsens. Irene Boland RPH 03/22/24 1029 documented in this [facility]01-13-2025 Miscellaneous Notes* Telephone Encounter - Carolyn Delgado CMA - 03/21/2024 4:21 PM EST Left message for patient to remind them to bring their most current medication list with them to their appointment. documented in this [facility]01-13-2025 Telephone encounter Note* Telephone Encounter - Carolyn Delgado CMA - 03/21/2024 4:21 PM EST Left message for patient to remind them to bring their most current medication list with them to their appointment. [employer]01-13-2025 History of Present illness Narrative* Gil Gee MD - 03/21/2024 9:45 AM ESTAssociated Problem(s): Chronic HFrEF (heart failure with reduced ejection fraction) (CMS/HCC) Patient stable and follow with cardiology. * Gil Gee MD - 03/21/2024 9:43 AM ESTAssociated Problem(s): Pulmonary hypertension (CMS/HCC) Patient stable and follow with cardiology. * Gil Gee MD - 03/21/2024 9:43 AM ESTAssociated Problem(s): Persistent atrial fibrillation (HCC) (CMS/HCC) In afib but rate controlled. Continue medication and follow up with cardiology. * Gil Gee MD - 03/21/2024 9:43 AM ESTAssociated Problem(s): Osteoarthritis, generalized Pain without mobic and use tylenol PRN. * Gil Gee MD - 03/21/2024 9:42 AM ESTAssociated Problem(s): Coronary artery disease (CMS/HCC) Doing well after bypass and follow with cardiology. * Gil Gee MD - 03/21/2024 9:42 AM ESTAssociated Problem(s): Benign hypertension (CMS/HCC) BP controlled and monitor PRN. * Gil Gee MD - 03/21/2024 8:45 AM EST Images from the original note were not [...] He is alert. Assessment/Plan documented in this encounterSoutheast Missouri [id number] Miscellaneous Notes* Telephone Encounter - Lizzette Mcnulty - 03/10/2024 8:39 AM EST Patient called and cancelled his INR appt for 03/11/24 and r/s for 03/16/24. He is not feeling well enough to come to his appt. He wanted to push the appt to 03/22/24, as he has another appt with [facility]. * Telephone Encounter - Irene Boland [facility] - 03/10/2024 8:39 AM EST Noted. Rescheduled INR to 03/22 per patient request. INR was stable at last check, making 03/22 a 3 week follow up. Not ideal, but given patients current medical state, more favorable for transportation. LM for patient with new appt time and asked him to please call with any changes or concerns as wecan see him sooner. Irene Boland, PharmD, BCPS March 10, 2024 9:13 AM documented in this encounterThe [facility]01-02-2025 Telephone encounter Note* Telephone Encounter - Lizzette Mcnulty - 03/10/2024 8:39 AM EST Patient called and cancelled his INR appt for 03/11/24 and r/s for 03/16/24. He is not feeling well enough to come to his appt. He wanted to push the appt to 03/22/24, as he has another appt with [facility]. [facility] [employer] [id number] Telephone encounter Note* Telephone Encounter - Irene Boland RPH - 03/10/2024 8:39 AM EST Noted. Rescheduled INR to 03/22 per patient request. INR was stable at last check, making 03/22 a 3 week follow up. Not ideal, but given patients current medical state, more favorable for transportation. LM for patient with new appt time and asked him to please call with any changes or concerns as wecan see him sooner. Irene Boland, Isabel, BCPS March 10, 2024 9:13 AM [employer] Work Phone: [phone] History of Present illness Narrative* Yary Ordaz RN - 03/04/2024 1:26 PM EST Returned call to patient. LM for a return call documented in this encounterSt. Albans HospitalRoyal Madina12-26-2024 Miscellaneous Notes* Telephone Encounter - Raquel Armando RN - 03/03/2024 2:53 PM EST Pt called and states he would like to get back on his mobic he had OHS on 02/15/24. 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 If he and his primary care doctor who prescribes the medicine feel that the Mobic is the best choice and agree that the benefits outweigh the risks, he may resume * Telephone Encounter - Raquel Armando RN - 03/03/2024 2:53 PM EST Called pt with LLD recommendations. Pt has appt with PCP in Mar.He said will discuss with him at that time.slm documented in this encounterThe [facility]12-26-2024 Telephone encounter Note* Telephone Encounter - Raquel Armando RN - 03/03/2024 2:53 PM EST Pt called and states he would like to get back on his mobic he had OHS on 02/15/24. 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 If he and his primary care doctor who prescribes the medicine feel that the Mobic is the best choice and agree that the benefits outweigh the risks, he may resume [facility]12-26-2024 Telephone encounter Note* Telephone Encounter - Raqule Armando RN - 03/03/2024 2:53 PM EST Called pt with LLD recommendations. Pt has appt with PCP in Mar.He said will discuss with him at that time.slm [facility]12-23-2024 History of Present illness Narrative* Judy Christine, [facility] - 02/29/2024 2:45 PM EST 15 minute rchp-wt-fvon follow-up anticoagulation appointment. Patient was scheduled as new visit lizabethis is first appt at [facility]; he typically INR performed in office [...] 4 mg all other days. Check INR in10 day(s). Patient already scheduled at [facility], patient agreeable to keep appt. Patient verbalizes understanding of anticoagulant dosing instructions and information discussed. Dosing regimen, counseling, and follow-up appointment were provided to the patient. Patient reminded to call with questions or any medication changes. Patient instructed to seek medical attention if anymajor bleeding/bleeding that persists or worsens. Judy Christine [facility] 02/29/24 1445 Electronically signed by Judy Christine [facility] at 02/29/2024 2:45 PM EST documented in this encounterThe [facility]vue Hospital12-23-2024 History of Present illness Narrative* Edgard Mauricio Villa, OPTICAL GLASS ETCHER-VOICE ENGINEER - 02/29/2024 1:20 PM EST Images from the original note were not included. Outpatient Follow-Up Note Date of Visit: 02/29/2024 PCP: GIL GEE MD Summary of Admission I had the pleasure today of seeing Remi Zarco in the office, in conjunction with, Dr. Barnes, following their recent Coronary artery bypass grafting x3 with left internal mammary artery toleft anterior descending, reverse saphenous vein graft to 2nd obtuse marginal, reverse saphenous vein graft to posterior descending artery; ligation left atrial appendage with 40mm Medtronic atrial clip; median sternotomy, endoscopic vein harvest, cardiopulmonary bypass by Dr. Barnes on 4at [facility]. As you recall, Remi Zarco is a 78 y.o. male pt with history of atrial fibrillation on Coumadin, moderate MR, and mildly dilated ascending aorta recently measuring 4.4 cm on echo. At a recent cardiology visit he had been complaining of exertional dyspnea and dizziness and an echocardiogramwas performed subsequently which showed new mild LV [...] bypass grafting. Benefits, risks, and alternatives were discussed.Given his history of dilated ascending aorta, a contrast CT chest was obtained preoperatively whichshowed the mid ascending aorta to have a [...] the supportive vasopressors or inotropics. Patient was startedon aspirin, beta-ortiz, statin, and diuretics. He was [...] tube had minimal drainage and no air leak,and was subsequently able to be discontinued. Patient was then up mobilizing more but was slow to progress in terms of his functional capacity. He was evaluated by therapy services who were recommending a discharge disposition of SNF when medically stable. Referrals were made and patient was accepted at [facility]. Initially while on the step-down unit, [...] mid to low 8s. Patient did have somemild thrombocytopenia which resolved. Again, BUN and creatinine [...] the patient on Lovenox to bridge to therapeuticINR. A referral was sent to the [facility] clinic to resume outpatient Coumadin management. Patient [...] days; and cardiology and primary care in 2-3weeks. Patient is to call the Cardiothoracic surgery office with any questions or concerns pertaining to his recent surgery. Remi Zarco presents to the office today for his follow-up appointment. On presentation hehas very few complaints. He does state that he is slightly more short of breath and he was prior tosurgery. He also believes he is more swollen today than he was prior to surgery. His weight has trended up slightly. His energy level is improving in his pain is well controlled he is ambulating moreevery day he is accompanied by his to today's appointment. He is not having any chest pain or shortness on breath. Past Medical History Past Medical History: Diagnosis Date Atrial fibrillation ([facility]) Disease of thyroid gland Hypercholesteremia Hypertension Hypothyroidism [...] mg total) by mouth nightly. 02/19/24 PHILIPP Anderson bisacodyL (DULCOLAX) 10 mg suppository Insert 1 [...] (25 mg total) by mouth every 12 (twelve)hours. 02/19/24 PHILIPP Florez pantoprazole (PROTONIX) 40 mg [...] by mouth in the evening. 02/19/24 PHILIPP Gautam Physical Examination Vital Signs: BP 126/64 (BP [...] with no erythema or drainage, Chest tube sitesare healing well and sutures were removed at this time, On palpation, sternum is felt to be stable., and Left SVG incision is CDI with no erythema or drainage Labs CBC: BMP: PT/INR: Results from last 7 days Lab Units 02/24/24 0000 02/23/24 0000 INR 2.1* 2.1* Assessment and Plan Remi Zarco presents today in the office for his follow-up appointment. Mr.Richard Rivas Zarco continues to appear fluid overloaded with bilateral lower extremity edema. We will accelerate his diuresis for the next 10 days and he should follow up with Cardiology in the near term future. Remi Zarco was encouraged to continue to increase his activity level as tolerated, and toplan on participating in phase 2 cardiac rehab after he follows up with Cardiology. The patient wasencouraged to call our office with any questions [...] [facility] 02/29/24 1417 documented in this encounterCincinnati Shriners HospitalMightyMeeting Insight Surgical [id number] Instructions* Patient Instructions* PHILIPP House - 02/29/2024 1:20 PM EST 1. Please continue to wear Heart Hugger for a total of 4-6 weeks from the date of surgery 2. Please continue to observe a less than 10 pound lifting restriction for a total of 6 weeks from the date of surgery 3. Please follow up with your medical doctors including your solar sales consultant and primary care physician 4. Driving restrictions can be lifted 03/07/2024 At this time the patient is discharged from our services. Please do not hesitate to call with any questions or concerns. documented in this encounterThe [facility]vue Hospital12-13-2024 History of Present illness Narrative* Judy Christine [facility] - 02/19/2024 1:50 PM EST Updated referral received from Dr. Olaf Pérez on 02/19/24 to notify Amberly HANDY of patient's upcoming discharge. Patient is already active with Amberly MTM through PPC referral thus Dr. Pérez removed from episode information. Patient admitted to [facility] on 02/15/24 for planned CABG, ligation of MARGY following recent cardiac cath.Patient did experience rate controlled afib post up. Warfarin therapy was resumed post-op on 02/16/24 along w/ subQ heparin for coverage. Patient also experienced hematuria for Willams insertion and team monitored closely. INR at 1.2 today. Patient to be discharged later today to [facility], [facility] Upcoming INR appt previously scheduled on 02/22/24 cx. Fax sent to facility requesting Amberly JARRETTM receive notification upon patientdischarge as in-house provider to manage warfarin while patient is admitted. Anticoagulation episode temporarily resolved. Judy Christine [facility] 02/19/24 1405 Electronically signed by Judy Christine [facility] at 02/19/2024 2:05 PM EST documented in this encounterThe [facility] Hospital12-11-2024 Miscellaneous Notes* Telephone Encounter - Yani Fletcher - 02/17/2024 5:17 AM EST Contract: 121 [facility] Rihca bolton bladder angelito * Telephone Encounter - Yani Fletcher - 02/17/2024 5:17 AM EST Numeric page sent documented in this encounterThe [facility] Hospital12-11-2024 Telephone encounter Note* Telephone Encounter - Yani Chance - 02/17/2024 5:17 AM EST Contract: [facility] Richa re bladder scan [facility]12-11-2024 Telephone encounter Note* Telephone Encounter - Yani Chance - 02/17/2024 5:17 AM EST Numeric page sent [facility]12-05-2024 History of Present illness Narrative* Yary Ordaz RN - 02/11/2024 3:42 PM EST Reviewed medications again. Patient notified of his CT chest tomorrow @ [place]. All questions answered documented in this encounterThe [facility]vue Hospital12-04-2024 History of Present illness Narrative* Yary Ordaz RN - 02/10/2024 5:45 PM EST LM for a return call documented in this encounterThe [facility]vue Hospital12-03-2024 Miscellaneous Notes* Telephone Encounter - Lizzette Mcnulty - 02/09/2024 3:21 PM EST Yary from Cardiothoracic called requesting a call back to discuss the patients up coming procedureon 02/15/[address] Gallardo at [facility]. The patient is going to have Bypass surgery. He is currently off his warfarin and being discharged to home today. Yary can be reached at [phone]. * Telephone Encounter - Jamal Pelaez [facility] - 02/09/2024 3:21 PM EST Images from the original note were not [...] since it may not be possible to fiber picker Lovenox this evening. Asked to call back with any questions or concerns. documented in this encounterSt. Albans HospitalRoyal Madina12-03-2024 Telephone encounter Note* Telephone Encounter - Lizzette Mcnulty - 02/09/2024 3:21 PM EST Yary from Cardiothoracic called requesting a call back to discuss the patients up coming procedureon 02/15/[address] Gallardo at [facility]. The patient is going to have Bypass surgery. He is currently off his warfarin and being discharged to home today. Yary can be reached at [phone]. [facility]12-[facility]24 Telephone encounter Note* Telephone Encounter - Jamal Pelaez [facility] - 02/09/2024 3:21 PM EST Images from the original note were not [...] since it may not be possible to fiber picker Lovenox this evening. Asked to call back with any questions or concerns. [employer]12-02-2024 History of Present illness Narrative* Irene Boland, [facility] - 02/08/2024 10:15 AM EST 15 minute hmpz-uz-gwop follow-up anticoagulation appointment. INR performed in office [...] is exploring alternative hospitals for privileges with [place] for sale Anticoagulant prescription needed: No Seen [...] Patient instructed to seek medical attention if anymajor bleeding/bleeding that persists or worsens. Irene Boland [facility] 02/08/24 1043 documented in this encounterThe [facility] Hospital11-26-2024 Miscellaneous Notes* Telephone Encounter - Becky Mo RN - 02/02/2024 2:38 PM EST Received order from Irena at the [facility] office. Patient scheduled for cath on 02/09/24 at 1030 AM at [facility] with TLM. Notified Irena. No Covid test required at this time. Pt will need to Hold Warfarin for 5 days with INR check on 02/07. Will send to [facility] to facilitate. * Telephone Encounter - Irene Boland [facility] - 02/02/2024 2:38 PM EST Noted. Reviewed with patient last dose of warfarin 02/02. Hold 02/03 through Cath. INR is scheduledfor 02/07. Patient v/u and denied further needs at this time. Patient was unaware cath had been scheduled. Noted he should be receiving more information from [facility]. Irene Boland, PharmD, [facility] February 02, 2024 2:54 PM * Telephone Encounter - Yolanda Eng RN - 02/02/2024 2:38 PM EST Verbal instructions given to pt. Instructed to have labs drawn this week if possible. documented in this [facility]11-26-2024 Telephone encounter Note* Telephone Encounter - Becky Mo RN - 02/02/2024 2:38 PM EST Received order from Irena at the [facility] office. Patient scheduled for cath on 02/09/24 at 1030 AM at [facility] with TLM. Notified Irena. No Covid test required at this time. Pt will need to Hold Warfarin for 5 days with INR check on 02/07. Will send to [facility] to facilitate. [employer]11-26-2024 Telephone encounter Note* Telephone Encounter - Irene Boland RPH - 02/02/2024 2:38 PM EST Noted. Reviewed with patient last dose of warfarin 02/02. Hold 02/03 through Cath. INR is scheduledfor 02/07. Patient v/u and denied further needs at this time. Patient was unaware cath had been scheduled. Noted he should be receiving more information from [facility]. Irene Boland, PharmD, [facility] February 02, 2024 2:54 PM [employer] Work Phone: [phone] Telephone encounter Note* Telephone Encounter - Yolanda Eng RN - 02/02/2024 2:38 PM EST Verbal instructions given to pt. Instructed to have labs drawn this week if possible. [employer]11-22-2024 History of Present illness Narrative* Grace Gee MD - 01/29/2024 1:00 PM EST Remi Zarco Date of visit: 01/29/2024 Date of : 1945 Age: 78 y.o. 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 omega 8-kkj-nhh-fish oil 300-1,000 mg capsule Take by mouth. [...] syncope or palpitations He is retired from [employer]. He is unaccompanied CV TESTING HISTORY: ECHO: Echo complete W/ contrast Result Date: 01/20/2024 Pericardium: There is a small pericardial effusion posteriorally, measuring 0.9 cm. Left Ventricle:Left ventricle appears normal in size. There is [...] sinus of Valsalva is mildly dilated. The ascendingaorta is mildly dilated. Tricuspid Valve: The right [...] Past Medical History: Diagnosis Date Atrial fibrillation ([facility]) Disease of thyroid gland Hypercholesteremia Hypertension Hypothyroidism Lung nodule Shortness of breath Visual impairment glasses Past Surgical History: Procedure Laterality Date ANKLE FUSION Left 01/06/2022 COLONOSCOPY N/A 04/25/2021 Performed by Tr Lynch DO at [facility] EXCISION CYST PERINEUM N/A 04/25/2021 Performed by Tr Lynch DO at [facility] REPLACEMENT TOTAL KNEE BILATERAL SHOULDER SURGERY [...] no discontinued medications. IMPRESSIONS/PLAN 1. Atrial fibrillation ([facility]) - POCT EKG 2. Persistent atrial fibrillation ([facility]) 3. Essential hypertension - Basic Metabolic Panel; Future 4. Shortness of breath - CBC; Future 5. Pulmonary hypertension ([facility]) 6. Left ventricular dysfunction 7. Anginal equivalent ([facility]) 8. 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 Pt does not want to schedule at thistime, LLD is aware and will call the office back when he is ready to proceed. documented in this [facility]11-21-2024 Miscellaneous Notes* Telephone Encounter - Haylie Plasencia CMA - 01/28/2024 10:18 AM EST Left message for patient to remind them to bring their most current medication list with them to their appointment. documented in this [facility]11-21-2024 Telephone encounter Note* Telephone Encounter - Haylie Plasencia CMA - 01/28/2024 10:18 AM EST Left message for patient to remind them to bring their most current medication list with them to their appointment. [facility]11-11-2024 History of Present illness Narrative* Gil Gee MD - 01/18/2024 11:21 AM ESTAssociated Problem(s): Statin myopathy Severe side effects from crestor and stopped. * Gil Gee MD - 01/18/2024 11:20 AM ESTAssociated Problem(s): Medicare annual wellness visit, subsequent Reviewed labs. Discussed proper diet and regular aerobic exercise. Need aerobic exercise 5-6 days aweek for 30 minutes at a time. Smaller portions and limit total calories. Tetanus every 10 years. Advised not to smoke. * Gil Gee MD - 01/18/2024 10:15 AM EST Images from the original note were not [...] aerobic exercise. Need aerobic exercise 5-6 days aweek for 30 minutes at a time. Smaller portions and limit total calories. Tetanus every 10 years. Advised not to smoke. documented in this encounterSoutheast Missouri [id number] History of Present illness Narrative* Irene Boland RPH - 01/15/2024 8:00 AM EST 15 minute qtxw-qq-dmch follow-up anticoagulation appointment. INR performed in office [...] Patient instructed to seek medical attention if anymajor bleeding/bleeding that persists or worsens. Irene Boland RPH 01/15/24 08 documented in this encounterThe [facility] Hospital10-24-2024 Miscellaneous Notes* Telephone Encounter - Suha Pyle RN - 12/31/2023 3:46 PM EDT Received call from Courtney at central scheduling today. Order for echo ordered back at [facility] 12/2022 hasexpired. Echo was to be completed in a year but pt was not set up until 01/20/2024 for that. Created new order with expected date of day test is being done under the appt encounter with co-sign to ordering provider so scheduling can complete on their end documented in this encounterThe [facility] Hospital10-24-2024 Telephone encounter Note* Telephone Encounter - Suha Pyle RN - 12/31/2023 3:46 PM EDT Received call from Courtney at central scheduling today. Order for echo ordered back at [facility] 12/2022 hasexpired. Echo was to be completed in a year but pt was not set up until 01/20/2024 for that. Created new order with expected date of day test is being done under the appt encounter with co-sign to ordering provider so scheduling can complete on their end [facility]09-13-20[facility] History of Present illness Narrative* Irene Boland RPH - 11/20/2023 8:00 AM EDT 15 minute vupi-oc-gbem follow-up anticoagulation appointment. INR performed in office [...] Patient instructed to seek medical attention if anymajor bleeding/bleeding that persists or worsens. 0 Irene Boland RPH 11/20/23 0812 documented in this encounterThe [facility] Hospital08-23-2024 History of Present illness Narrative* Irene Boland RPH - 10/30/2023 8:00 AM EDT 15 minute xbzo-gs-diqe follow-up anticoagulation appointment. INR performed in office [...] Patient instructed to seek medical attention if anymajor bleeding/bleeding that persists or worsens. Irene Boland RPH 10/30/23 0811 documented in this encounterThe [facility] Hospital08-21-2024 History of Present illness Narrative* Gil Gee MD - 10/28/2023 11:20 AM EDTAssociated Problem(s): Persistent atrial fibrillation (HCC) (CMS/HCC) In NSR and monitor. Continue medication and follow up with cardiology. * Gil Gee MD - 10/28/2023 11:20 AM EDTAssociated Problem(s): Osteoarthritis, generalized Pain in multiple joints but stable. Use mobic PRN. * Gil Gee MD - 10/28/2023 11:20 AM EDTAssociated Problem(s): Benign hypertension (CMS/HCC) BP controlled and monitor PRN. * Gil Gee MD - 10/28/2023 10:30 AM EDT Images from the original note were not included. Subjective Patient ID: Remi Zarco is a 78 y.o. male who presents for Follow-up (6MO MELOXICAM REFILL NEEDED TO [facility] MAIL ORDER ONLY PLEASE). Follow up HTN, afib, and OA. Patient doing well today. Checking BP PRN and typically controlled. BPslightly elevated today. Taking medication daily and tolerating [...] Relevant Orders Lipid panel documented in this encounterSoutheast Missouri [id number] Miscellaneous Notes* Telephone Encounter - Jena Steiner RN - 10/26/2023 8:07 AM EDT OV 12/19/22 BMP 02/10/23 Mag 08/20/22 Labs pended, letter printed and mailed to patient. documented in this encounterThe [facility] Hospital08-19-2024 Telephone encounter Note* Telephone Encounter - Jena Steiner RN - 10/26/2023 8:07 AM EDT OV 12/19/22 BMP 02/10/23 Mag 08/20/22 Labs pended, letter printed and mailed to patient. [facility]07-31-2024 Miscellaneous Notes* Telephone Encounter - Asuncion Langston MA - 10/07/2023 10:12 AM EDT Patient called for a refill on Jantoven 4 mg, 90 day supply, to be called in to [facility] at [phone], fax: [phone]. Pt was insistent that he didn't have any refills left, however promotion writer informed him he still may have 1 refill left. Patient saw referring provider December,. * Telephone Encounter - Irene Boland RPH - 10/07/2023 10:12 AM EDT Noted. Refill sent. Irene Boland PharmD, BCPS October 07, 2023 10:21 AM documented in this encounterThe [facility] Hospital07-31-2024 Telephone encounter Note* Telephone Encounter - Asuncion Langston MA - 10/07/2023 10:12 AM EDT Patient called for a refill on Jantoven 4 mg, 90 day supply, to be called in to [facility] at [phone], fax: [phone]. Pt was insistent that he didn't have any refills left, however promotion writer informed him he still may have 1 refill left. Patient saw referring provider December,. [facility]07-31-20[facility] Telephone encounter Note* Telephone Encounter - Irene Boland [facility] - 10/07/2023 10:12 AM EDT Noted. Refill sent. Irene Boland PharmD, [facility] October 07, 2023 10:21 AM [facility]06-26-2024 History of Present illness Narrative* Irene Boland [facility] - 09/02/2023 8:00 AM EDT 15 minute sspz-yo-ggjl follow-up anticoagulation appointment. INR performed in office [...] Patient instructed to seek medical attention if anymajor bleeding/bleeding that persists or worsens. Irene Boland [facility] 09/02/23 08 documented in this encounterThe [facility] Hospital05-03-2024 History of Present illness Narrative* Beck Weeks, [facility] - 07/10/2023 8:00 AM EDT 15 minute oxcm-uj-mgfb follow-up anticoagulation appointment. INR performed in office [...] Patient instructed to seek medical attention if anymajor bleeding/bleeding that persists or worsens. Beck Weeks RP 07/10/23 0806 documented in this encounterThe [facility] Hospital03-15-2024 History of Present illness Narrative* Irene Boland [facility] - 05/22/2023 8:00 AM EDT 15 minute [id number] follow-up anticoagulation appointment. INR performed in office [...] Patient instructed to seek medical attention if anymajor bleeding/bleeding that persists or worsens. Irene Boland [facility] 05/22/23 0805 [facility] History of Present illness Narrative* Irene Boland [facility] - 04/03/2023 8:00 AM EST 15 minute [id number] follow-up anticoagulation appointment. INR performed in office [...] Patient instructed to seek medical attention if anymajor bleeding/bleeding that persists or worsens. Irene Boland [facility] 04/03/23 0807 documented in this encounterThe [facility]01[facility]24 Miscellaneous Notes* Telephone Encounter - Lizzette Saraviaadriana - 03/11/2023 8:27 AM EST Patient called requesting a refill of his warfarin 4 mg tablets for [facility] to [facility]. [place] his referring provider 12/19/22. * Telephone Encounter - Sandra Merritt [facility] - 03/11/2023 8:27 AM EST Noted. Refill sent to [facility] as requested for warfarin 4 mg tabs. Last OV: 12/19/22 documented in this encounterThe [facility]24 Telephone encounter Note* Telephone Encounter - Lizzette Mcnulty - 03/11/2023 8:27 AM EST Patient called requesting a refill of his warfarin 4 mg tablets for 90 days to [facility] mail order. [place] his referring provider 12/19/22. [facility] Telephone encounter Note* Telephone Encounter - Sandra Merritt [facility] - 03/11/2023 8:27 AM EST Noted. Refill sent to [facility] as requested for warfarin 4 mg tabs. Last OV: 12/19/22 [facility]01-02-2024 Miscellaneous Notes* Telephone Encounter - Davion Jackson RN - 03/10/2023 7:00 AM EST ----- Message from Brad Greer MD sent at 03/09/2023 4:58 PM EST ----- Okay to proceed with low risk ----- Message ----- From: Davion Jackson RN Sent: 02/09/2023 9:37 AM EST To: Brad Greer MD [facility] ----- Message ----- From: Winifred Melissa [facility] Sent: 02/06/2023 4:00 PM EST To: [facility] Clinical Staff Clearance received 02/06/23 from [employer] via [facility] [email or web address] documented in this encounterCincinnati Shriners HospitalHackerOne [id number] Telephone encounter Note* Telephone Encounter - Davion Jackson RN - 03/10/2023 7:00 AM EST ----- Message from Brad Greer MD sent at 03/09/2023 4:58 PM EST ----- Okay to proceed with low risk ----- Message ----- From: Davion Jackson RN Sent: 02/09/2023 9:37 AM EST To: Brad Greer MD FY ----- Message ----- From: Winifred Melissa [facility] Sent: 02/06/2023 4:00 PM EST To: [facility] Clinical Staff Clearance received 02/06/23 from [employer] via [facility] [email or web address] [facility] Evaluation note* Encounter Date Diagnosis Assessment Notes Treatment Notes Treatment Clinical Notes Nov, Dehiscence of operat giana wound, initial encounter (ICD-10 - T81.31XA) Caring for a surgical wound material was printed Keep the wound clean and dry. Leave the urgent care dressing on until tomorrow. Tomorrow you may change the dressing. You may apply antibiotic ointment to the wound. Keep your appointment with Dr. Hernandez on Thursday as scheduled. Nov,Surgical wound present (ICD-10 - T14.8XXA) [facility] Other 04-05-2023 NotePROCEDURE: XR FOOT LT MIN [...] and postsurgical changes Electronically authenticated by: YOU BRAGA Date: 2022-06-11 14:10[facility] [id number] NotePROCEDURE: XR FOOT LT MIN 3 VIEWS, [...] Electronically authenticated by: GERARDO AUGUSTIN Date: 2022-04-08 11:49[facility]01-31-2023 NotePROCEDURE: XR FOOT LT MIN [...] Electronically authenticated by: GERARDO AUGUSTIN Date: 2022-04-08 11:49[facility]12-27-2022 NotePROCEDURE: XR FOOT LT MIN [...] and postsurgical changes Electronically authenticated by: YOU BRAGA Date: 2022-03-04 16:58[facility]12-14-2022 NotePROCEDURE: XR FOOT LT MIN [...] Electronically authenticated by: GERARDO AUGUSTIN Date: 2022-02-19 09:16[facility]11-30-2022 NotePROCEDURE: XR FOOT LT MIN [...] Electronically authenticated by: GERARDO AUGUSTIN Date: 2022-02-05 06:48[facility]10-31-2022 NotePROCEDURE: XR FOOT LT 2V COMPARISON: 01/24/2021 HISTORY: Pain FINDINGS: 2 minute 27 seconds of fluoroscopy. 57 images. Fluoroscopic images demonstrate triple arthrodesis with posterior calcaneal osteotomy and subtalar fusion. Placement of a wedge spacer in the medial cuneiform. IMPRESSION: Images from triple arthrodesis Electronically authenticated by: YOU BRAGA Date: 2022-01-06 15:43[facility]10-31-2022 NotePROCEDURE: XR FOOT LT MIN [...] Interval triple arthrodesis Electronically authenticated by: YOU BRAAG Date: 2022-01-06 13:01[facility]10-31-2022 NotePROCEDURE: XR FOOT LT MIN [...] Interval triple arthrodesis Electronically authenticated by: YOU BRAGA Date: 2022-01-06 13:01[facility]2022 NoteHNO ID: [id number] Author: Darrel Almendarez DPM Service: ? Author [...] and/or coordinating care for the patient. [facility] History of Present illness Narrative* Darrel [...] patient. Darrel Almendarez DPM documented [facility]22 NoteHNO ID: [id number] Author: Darrel Almendarez DPM Service: ? Author [...] and/or coordinating care for the patient. [facility] History of Present illness Narrative* Darrle Almendarez DPM - 07/10/2021 4:36 PM EDT Patient Visit for Remi Fairchild Matthew 1945 [...] patient. Darrel Almendarez DPM documented in this encounterPar[facility]05-04-2022 NoteHNO ID: [id number] Author: RT Lorenzo(R) Service: ? Author Type: [...] BY: RT Lorenzo(Nora) July 10, 2021 12:44 [facility]05-04-2022 History of Present illness Narrative* RT [...] 10, 2021 12:44 PM documented in this encounterParma [facility]04-08-2022 NoteHNO ID: [id number] Author: Manuel Saucedo DPM Service: ? Author Type: Physician Type: Progress Notes Filed: 06/14/2021 1:59 PM Note Text: [facility] Department of Orthopedics [facility] Orthopedic Surgery Name: Remi Zarco [...] brought in radiographs and a CT from [place] which demonstrate a valgus tilt of the [...] he does not want to drive to [facility]. Suggested he see Dr. Almendarez to [...] problem and decision planning for surgical invention [facility] History of Present illness Narrative* Manuel Saucedo DPM - 06/14/2021 1:53 PM EDT [facility] Department of Orthopedics [facility] Orthopedic Surgery Name: Remi Zarco [...] brought in radiographs and a CT from [place] which demonstrate a valgus tilt of the [...] he does not want to drive to [facility]. Suggested he see Dr. Almendarez to [...] invention Manuel Saucedo DPM documented 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* Diagnosis Left ankle pain, unspecified chronicity DJD (degenerative joint disease), ankle and foot, left documented in this encounter [facility]* Diagnosis DJD (degenerative joint disease), ankle and foot, left- Primary Osteonecrosis (HCC) Aseptic necrosis of bone, site unspecified PTTD (posterior tibial tendon dysfunction) Other disorders of synovium, tendon, and bursa Acquired valgus deformity of left ankle Difficulty walking Difficulty in walking Ankle instability, left Chronic pain of left ankle documented in this encounter [facility] noteNo assessment information availableOhio State East Hospital [facility]tr Work Phone: Evaluation note* Diagnosis Benign hypertension [...] myopathy Toxic myopathy documented in this encounter [facility] HealthcareEvaluation [facility]* Diagnosis Benign hypertension (CMS/HCC)- Primary Essential hypertension, benign Persistent atrial fibrillation (HCC) (CMS/HCC) Atrial fibrillation Osteoarthritis, generalized Primary osteoarthritis of left shoulder Adult hypothyroidism (CMS/HCC) Unspecified hypothyroidism Dyslipidemia (CMS/HCC) Other and unspecified hyperlipidemia Encounter for long-term current use of medication documented in this encounter [facility] HealthcareEvaluation note* Diagnosis 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 [facility]* Diagnosis Persistent atrial fibrillation (CMS-HCC)- Primary Atrial fibrillation exterminator termite (current) use of anticoagulants Long-term (current) use of anticoagulants Anticoagulated on Coumadin documented in this encounter [facility]* Diagnosis Benign hypertension (CMS/HCC)- [...] myopathy Toxic myopathy Coronary artery disease involving [place] coronary artery of [place] heart without angina pectoris (CMS/HCC)- Primary Benign hypertension (CMS/HCC) Essential hypertension, benign Persistent atrial fibrillation (HCC) (CMS/HCC) Atrial fibrillation Osteoarthritis, generalized Pulmonary hypertension (CMS/HCC) Other chronic pulmonary heart diseases Chronic HFrEF (heart failure with reduced ejection fraction) (CMS/HCC) [facility] Diagnosis Persistent atrial fibrillation (CMS-HCC)- Primary Atrial fibrillation longterm (current) use of anticoagulants Long-term (current) use of anticoagulants Anticoagulated on Coumadin documented in this encounter [facility]* Diagnosis Coronary artery disease involving [place] coronary artery of [place] heart without angina pectoris- Primary Persistent atrial fibrillation (CMS-HCC) Atrial fibrillation Essential hypertension Unspecified essential hypertension Chronic heart failure with preserved ejection fraction (CMS-HCC) documented in this [facility]* Diagnosis Benign hypertension (CMS/HCC)- [...] myopathy Toxic myopathy Coronary artery disease involving [place] coronary artery of [place] heart without angina pectoris (CMS/HCC)- Primary Benign hypertension (CMS/HCC) Essential hypertension, benign Persistent atrial fibrillation (HCC) (CMS/HCC) Atrial fibrillation Osteoarthritis, generalized Pulmonary hypertension (CMS/HCC) Other chronic pulmonary heart diseases Chronic HFrEF (heart failure with reduced ejection fraction) (CMS/HCC) Onychomycosis- Primary Dermatophytosis of nail documented in this encounter [facility] HealthcareEvaluation note* Diagnosis Persistent atrial fibrillation (CMS-HCC)- Primary Atrial fibrillation longterm (current) use of anticoagulants Long-term (current) use of anticoagulants Anticoagulated on Coumadin documented in this encounter [facility]* Diagnosis longterm (current) use of anticoagulants Long-term (current) use of anticoagulants Essential hypertension Unspecified essential hypertension Persistent atrial fibrillation (CMS-HCC) Atrial fibrillation documented in this encounter [facility]* Diagnosis Essential hypertension- Primary Unspecified essential hypertension Persistent atrial fibrillation (CMS-HCC) Atrial fibrillation longterm (current) use of anticoagulants Long-term (current) use of anticoagulants documented in this encounter [facility]* Diagnosis Essential hypertension Unspecified essential hypertension Atrial fibrillation (CMS-HCC) documented in this encounter [facility]* Diagnosis Essential hypertension- Primary Unspecified essential hypertension Persistent atrial fibrillation (CMS-HCC) Atrial fibrillation longterm (current) use of anticoagulants Long-term (current) use of anticoagulants documented in this encounter [facility]* Diagnosis Essential hypertension- Primary Unspecified essential hypertension Persistent atrial fibrillation (CMS-HCC) Atrial fibrillation longterm (current) use of anticoagulants Long-term (current) use of anticoagulants documented in this encounter [facility]* Diagnosis Essential hypertension- Primary Unspecified essential hypertension Persistent atrial fibrillation (CMS-HCC) Atrial fibrillation longterm (current) use of anticoagulants Long-term (current) use of anticoagulants documented in this encounter [facility]* Diagnosis Atrial fibrillation (CMS-HCC)- Primary Persistent atrial fibrillation (CMS-HCC) Atrial fibrillation Essential hypertension Unspecified essential hypertension Shortness of breath Pulmonary hypertension (CMS-HCC) Other chronic pulmonary heart diseases Left ventricular dysfunction Left heart failure Anginal equivalent (CMS-HCC) longterm (current) use of anticoagulants Long-term (current) use of anticoagulants documented in this encounter [facility]* Diagnosis Pulmonary hypertension (CMS-HCC) Other chronic pulmonary heart diseases Anginal equivalent (CMS-HCC) Left ventricular dysfunction Left heart failure Essential hypertension- Primary Unspecified essential hypertension Persistent atrial fibrillation (CMS-HCC) Atrial fibrillation exterminator termite (current) use of anticoagulants Long-term (current) use of anticoagulants Pulmonary hypertension (CMS-HCC) Other chronic pulmonary heart diseases Anginal equivalent (CMS-HCC) Left ventricular dysfunction Left heart failure documented in this encounter [facility]* Diagnosis Persistent atrial fibrillation (CMS-HCC)- Primary Atrial fibrillation longterm (current) use of anticoagulants Long-term (current) use of anticoagulants documented in this encounter [facility]* Diagnosis Aortic dilatation (CMS-HCC)- Primary documented in this encounter [facility]* Diagnosis Essential hypertension- Primary Unspecified essential hypertension Persistent atrial fibrillation (CMS-HCC) Atrial fibrillation longterm (current) use of anticoagulants Long-term (current) use of anticoagulants Anticoagulated on Coumadin documented in this encounter [facility]* Diagnosis Essential hypertension Unspecified essential hypertension documented in this encounter [facility]* Diagnosis Benign hypertension (CMS/HCC)- [...] myopathy Toxic myopathy Coronary artery disease involving [place] coronary artery of [place] heart without angina pectoris (CMS/HCC)- Primary Benign hypertension (CMS/HCC) Essential hypertension, benign Persistent atrial fibrillation (HCC) (CMS/HCC) Atrial fibrillation Osteoarthritis, generalized Pulmonary hypertension (CMS/HCC) Other chronic pulmonary heart diseases Chronic HFrEF (heart failure with reduced ejection fraction) (CMS/HCC) Adult hypothyroidism (CMS/HCC)- Primary Unspecified hypothyroidism documented in this encounter [facility]Evaluation note* Diagnosis Persistent atrial fibrillation (CMS-HCC)- Primary Atrial fibrillation documented in this encounter [facility]* Diagnosis Ischemic cardiomyopathy- Primary Other specified forms of chronic ischemic heart disease documented in this encounter [facility]* Diagnosis Persistent atrial fibrillation (CMS-HCC)- Primary Atrial fibrillation longterm (current) use of anticoagulants Long-term (current) use of anticoagulants Anticoagulated on Coumadin documented in this encounter [facility]* Diagnosis Benign hypertension (CMS/HCC)- [...] myopathy Toxic myopathy Coronary artery disease involving [place] coronary artery of [place] heart without angina pectoris (CMS/HCC)- Primary Benign [...] fibrillation Osteoarthritis, generalized Coronary artery disease involving [place] coronary artery of [place] heart without angina pectoris (CMS/HCC) [facility]* Diagnosis Benign hypertension (CMS/HCC)- Primary Essential [...] myopathy Toxic myopathy Coronary artery disease involving [place] coronary artery of [place] heart without angina pectoris (CMS/HCC)- Primary Benign [...] fibrillation Osteoarthritis, generalized Coronary artery disease involving [place] coronary artery of [place] heart without angina pectoris (CMS/HCC) Seborrheic keratosis- Primary Actinic keratosis Melanocytic nevus of trunk Benign neoplasm of skin of trunk, except scrotum Lentigines Angioma of skin Skin tag Unspecified hypertrophic and atrophic condition of skin History of basal cell carcinoma Personal history of other malignant neoplasm of skin documented in this encounter [facility]* Diagnosis Persistent atrial fibrillation (CMS-HCC)- Primary Atrial fibrillation exterminator termite (current) use of anticoagulants Long-term (current) use of anticoagulants Anticoagulated on Coumadin documented in this encounter [facility]* Diagnosis Benign hypertension- Primary [...] myopathy Toxic myopathy Coronary artery disease involving [place] coronary artery of [place] heart without angina pectoris- Primary Benign hypertension Essential hypertension, benign Persistent atrial fibrillation (HCC) Atrial fibrillation Osteoarthritis, generalized Pulmonary hypertension (HCC) Other chronic pulmonary heart diseases Chronic HFrEF (heart failure with reduced ejection fraction) (HCC) Benign hypertension- Primary Essential hypertension, benign Chronic HFrEF (heart failure with reduced ejection fraction) (HCC) Persistent atrial fibrillation (HCC) Atrial fibrillation Osteoarthritis, generalized Coronary artery disease involving [place] coronary artery of [place] heart without angina pectoris Onychomycosis- Primary Dermatophytosis of nail documented in this encounter [facility] HealthcareEvaluation note* Diagnosis Onset Date Resolution Status Admit Date Benign essential hypertension acuteOctober 2024 8:03amConstipationacuteOctober 2024 8:03amElevated INRacuteOctober 2024 8:03amHematocheziaacuteOctober 8th, 2025 8:03am Pulmonary noduleacuteOctober 2024 8:03am [facility] Work Phone: Evaluation note* Diagnosis Coronary artery disease involving [place] coronary artery of [place] heart without angina pectoris- Primary Essential hypertension Unspecified essential hypertension Left ventricular dysfunction Left heart failure Persistent atrial fibrillation (CMS-HCC) Atrial fibrillation Pulmonary hypertension (CMS-HCC) Other chronic pulmonary heart diseases Anticoagulated on Coumadin [facility] Diagnosis Persistent atrial fibrillation (CMS-HCC)- Primary Atrial fibrillation longterm (current) use of anticoagulants Long-term (current) use of anticoagulants Anticoagulated on Coumadin documented [facility] Narrative - Reported* Type Description Date Medical History HYPERTENSION Medical HistoryHYPOTHYROIDISMSurgical HistoryBILATERAL KNEE REPLACEMENTSurgical HistoryLEFT SHOULDER REPLACEMENTSurgical HistoryMULTIPLE SURGERIES ON BOTH SHOULDERSurgical HistoryBENIGN TUMOR UNDER LEFT EARSurgical HistoryLEFT FOOT PARTIAL FUSIONHospitalization HistorySEE ABOVE [facility] Other Hospital Discharge instructions Additional Instructions Apply ointment. Shower tomorrow. Restart coumadin ..[facility] Work Phone: Hospital Discharge instructionsAmbulatory Orders* Referral to General Surgery Time Frame: 12/14/24, Location: None Selected [facility] Work Phone: InstructionsNot on filedocumented [...] referral (narrative)* Diagnostic Procedure Only (Routine) - ClosedSpecialtyDiagnoses / ProceduresReferred By Contact Referred To ContactXR IMAGING Diagnoses DJD (degenerative joint disease), ankle and foot, left Procedures XR FOOT GENERAL 3V AP/LAT/OBL LEFT RADEX FOOT COMPLETE MINIMUM 3 VIEWS Darrel Almendarez DPM [address] [place] [address] Xr Imaging Referral IDStatusasonStart DateExpiration DateVisits RequestedVisits [id number] Auto-Generated Referral / [facility] for referral (narrative)* Diagnostic Procedure Only (Routine) - ClosedSpecialtyDiagnoses / ProceduresReferred By ContactReferred To ContactXR IMAGING Diagnoses DJD (degenerative joint disease), ankle and foot, left Procedures XR FOOT GENERAL 3V AP/LAT/OBL LEFT RADEX FOOT COMPLETE MINIMUM 3 VIEWS Darrel Almendarez DPM [address] [place] [address] Xr Imaging Referral IDStatusReasonStart DateExpiration DateVisits RequestedVisits [id number] Auto-Generated Referral * Diagnostic Procedure Only (Routine) - ClosedSpecialtyDiagnoses / Procedures Referred By ContactReferred To ContactXR IMAGING Diagnoses Left ankle pain, unspecified chronicity Procedures XR ANKLE GENERAL 3V AP/LAT/OBL LEFT RADEX ANKLE COMPLETE MINIMUM 3 VIEWS Darrel Almendarez DPM [address] [place] [address] Xr Imaging Referral IDStatusReasonStart DateExpiration DateVisits RequestedVisits [id number] Auto-Generated Referral [facility] for visit Narrative* Diagnostic Procedure Only (Routine) - ClosedSpecialtyDiagnoses / ProceduresReferred By ContactReferred To Contact XR IMAGING Diagnoses Left ankle pain, unspecified chronicity Procedures XR ANKLE GENERAL 3V AP/LAT/OBL LEFT RADEX ANKLE COMPLETE MINIMUM 3 VIEWS Darrel Almendarez DPM [address] [place] [address] Xr Imaging Referral IDStatusReasonStart DateExpiration DateVisits RequestedVisits [id number] Auto-Generated Referral [facility] Advance Directives No Advanced Directives Records FoundDocuments on File TypeDate RecordedPatient RepresentativeExplanationAdvance Directive(s)04/02/2018 11:18 AMAdvance Directive(s)03/26/2018 1:54 PMAdvance Directive(s)03/22/2018 10:08 AMTypeDate RecordedPatient RepresentativeExplanationAdvance Directive(s) 04/02/2018 11:18 AMAdvance Directive(s)03/26/2018 1:54 PMAdvance Directive(s) 03/22/2018 10:08 AM Advance Directive Response Recorded Date/ Time Advance Directives No May 27, 2 022 8:15am Date ActivatedDate CgiuymvxbwgJbboexdp89/9/2024 11:59 AM02/19/2024 7:40 PMDate ActivatedDate YynhpintxjjZkqmuxhk18/9/2024 11:59 AM02/19/2024 7:40 PMDate ActivatedDate BtjdzkhljbsHbpruswr17/9/2024 11:59 AM Advance Directive Response Recorded Date/ Time Advance Directives No May 27 9:15am Reason for Referral SpecialtyDiagnoses / ProceduresReferred By ContactReferred To ContactMR IMAGING Diagnoses Osteonecrosis (HCC) Procedures MRI ANKLE WO IVCON LT MRI ANY JT LOWER EXTREM W/O CONTRAST MATRDarrel Gomez DPM [address] [place] [address] Mr Imaging Referral IDStatusReasonStart DateExpiration DateVisits RequestedVisits [id number] Review Auto-Generated Referral / Summary Purpose Family History No Family History Records Found Relationship Condition Age at Onset Recorded Date/T annette father Myocardial infarction Unknown Not SpecifiedCongestive heart failureUnknownsisterMalignant neoplasm of breast Unknown Relationship Condition Age at Onset Recorded Date/T annette father Myocardial infarction Unknown motherCongestive heart failureUnknownsisterMalignant neoplasm of breastUnknown fatherDeceasedUnknownmotherDeceasedUnknown Chief Complaint and Reason for Visit Chief Complaint Basal Cell Skin Canc er Chief Complaint Basal Cell Skin Canc er Basal Cell Skin Cancer Chief Complaint Admit Date Dark Stool Some Blood December 14, 2024 8:03am Reason for Visit Admit Date Benign essential hypertension December 8:03am Constipation December 14, 2024 8: 03am Elevated INR December 14, 2024 8: 03am Hematochezia December 14, 2024 8: 03am Pulmonary nodule December 14, 2024 8: 03am Additional Source Comments Source Comments (unrecognize d section and content) In the event this informatio n is protected by the Federal Confidentiality of Alcohol and Drug Abuse Patient Records regulations: The Federal rules restrict any use of the information to criminally investigate or prosecute any alcohol or drug abuse patient.[facility] Hospital[facility] the event this information is protected by the Federal Confidentiality of Alcohol and Drug Abuse Patient Records regulations: The Federal rules restrict any use of the information to criminally investigate or prosecute any alcohol or drug abuse patient.[facility] HospitalIn the event this information is protected by the Federal Confidentiality of Alcohol and Drug Abuse Patient Records regulations: The Federal rules restrict any use of the information to criminally investigate or prosecute any alcohol or drug abuse patient.[facility] HospitalIn the event this information is protected by the Federal Confidentiality of Alcohol and Drug Abuse Patient Records regulations: The Federal rules restrict any use of the information to criminally investigate or prosecute any alcohol or drug abuse patient.[facility] HospitalIn the event this information is protected by the Federal Confidentiality of Alcohol and Drug Abuse Patient Records regulations: The Federal rules restrict any use of the information to criminally investigate or prosecute any alcohol or drug abuse patient.[facility] Reason for Visit (unrecogniz ed section and content) ReasonCommentsPainReasonCommentsRadio Gen RMPReasonCommentsNewPainReasonComments Established PatientFollow UpPainReasonCommentsMedicare Annual Wellness Visit SubsequentWellnessReasonCommentsFollow-up6MO MELOXICAM REFILL NEEDED TO [facility] ORDER ONLY PLEASEReasonCommentsFollow-upCardiology wanted a pcp visit.Reason CommentsFollow-upS/P CABG x3 [facility] facilityReason CommentsToenail CarePt is here today requesting nail care,SS: 13ReasonOnset Date CommentsMed Uqetbs8103/26/2024ReasonOnset DateCommentsCardiac Njkqzroqs75/02/2024 ReasonOnset DateCommentsMed Ufiwre904ReasonCommentsMed RefillReasonOnset DateCommentsEcho Order Jvfqmre73/24/2024ReasonCommentsFollow-upEST PT F/U 1 YR ECHO TO BE DONE, labs PRIOR TO APPT L/S MASReasonOnset DateCommentscardiac cath 4ReasonOnset DateCommentsbladder scan4ReasonOnset DateComments Med Bqqtqq9105/16/2024ReasonOnset DateCommentsMed Pigtfd2505/18/2024ReasonOnset Date CommentsMed Dweehr6906/13/2024ReasonCommentsFollow-upEST PT F/U 3 MS LABS DONE L/S KMReasonCommentsFollow-cj0xMvjhsqUrrbqhbpGwez CheckReasonOnset DateComments medication hyuieyfk93/12/2025ReasonCommentsToenail CareReasonOnset DateComments Med Euvqsm9711/15/2024ReasonCommentsFollow-upEST PT F/U 6 MS ECHO DONE L/S MBO SCHED W/PT Care Teams (unrecognized sec tion and content) Team MemberRelationshipSpecialtyStart DateEnd Date BelindalauraGil melendez [address] [place] [address] PCP - GeneralFamily Rsljbjhw40/20/18Team MemberRelationshipSpecialtyStart Date End Date BelindalauraGil melendez [address] [place] [address] PCP - GeneralFamily Mdfgtqgv70/20/18Team MemberRelationshipSpecialtyStart Date End Date BelindalauraGil melendez [address] [place] [address] PCP - GeneralFamily Kbrwpgaw18/20/18Team MemberRelationshipSpecialtyStart Date End Date GerardGil [address] [place] [address] PCP - GeneralFami Rfvyqxxq99/20/18Team MemberRelationshipSpecialtyStart Date End Date BelindalauraGil melendez [address] [place] [address] PCP - GeneralFami Acorggtp80/20/18 Team Status: Active Member Role Status Dates Gil Gee MD Primary Care Provider Active Team Status: Inactive Member Role Status Dates Willie Ross DO Attending Provider Active Carie Guevara Care ProviderActiveTeam MemberRelationshipSpecialty Start DateEnd Date iGl Gee MD [address] [place] [address] PCP - GeneralFamily Medicine04/22/23Team MemberRelationshipSpecialtyStart DateEnd Date Gil Gee MD [address] [place] [address] PCP - GeneralFamily Medicine04/22/23Team MemberRelationshipSpecialtyStart DateEnd Date Gil Gee MD [address] [place] [address] PCP - Generalmily Medicine04/22/23Team MemberRelationshipSpecialtyStart DateEnd Date Gil Gee MD [address] [place] [address] PCP - Generalmily Medicine04/22/23Team MemberRelationshipSpecialtyStart DateEnd Date Gil Gee MD PCP - Tfyokuy81/3/17Team MemberRelationshipSpecialtyStart DateEnd Date Gil Gee MD PCP - Euibpfi20/3/17Team MemberRelationshipSpecialtyStart DateEnd Date Gil Gee MD PCP - Fqqqcbm37/3/17Team MemberRelationshipSpecialtyStart DateEnd Date Gil Gee MD PCP - Fodvvjr22/3/17Team MemberRelationshipSpecialtyStart DateEnd Date Gil Gee MD PCP - Fcrfodd76/3/17Team MemberRelationshipSpecialtyStart DateEnd Date Gil Gee MD [address] [place] [address] PCP - GeneralFamily Medicine04/22/23Team MemberRelationshipSpecialtyStart DateEnd Date Gil eGe MD [address] [place] [address] PCP - Generalmily Medicine04/22/23Team MemberRelationshipSpecialtyStart DateEnd Date Gil Gee MD PCP - Wcvlolw28/3/17Team MemberRelationshipSpecialtyStart DateEnd Date Gil Gee MD PCP - Rluzwhw24/3/17Team MemberRelationshipSpecialtyStart DateEnd Date Gil Gee MD [address] [place] [address] PCP - Generalmily Medicine04/22/23Team MemberRelationshipSpecialtyStart DateEnd Date Gil Gee MD [address] [place] [address] PCP - Generalmily Medicine04/22/23Team MemberRelationshipSpecialtyStart DateEnd Date Gil Gee MD PCP - Cvzllla45/05/23Team MemberRelationshipSpecialtyStart DateEnd Date Gil Gee MD PCP - Dwoitwh84/3/17Team MemberRelationshipSpecialtyStart DateEnd Date Gil Gee MD [address] [place] [address] PCP - Iggpjzm80/3/17Team MemberRelationshipSpecialtyStart DateEnd Date Gil Gee MD [address] [place] [address] PCP - Csrsodt24/3/17Team MemberRelationshipSpecialtyStart DateEnd Date Gil Gee MD PCP - Nmsgrci73/3/17Team MemberRelationshipSpecialtyStart DateEnd Date Gil Gee MD PCP - Ictmgxe13/3/17Team MemberRelationshipSpecialtyStart DateEnd Date Gil Gee MD PCP - Lwnjahj65/3/17Team MemberRelationshipSpecialtyStart DateEnd Date Gil Gee MD PCP - Nwqzowb77/3/17Team MemberRelationshipSpecialtyStart DateEnd Date Gil Gee MD PCP - Ooqrgxe00/3/17Team MemberRelationshipSpecialtyStart DateEnd Date Gil Gee MD PCP - Vxlotws42/3/17Team MemberRelationshipSpecialtyStart DateEnd Date Gil Gee MD PCP - Xplnywt68/3/17Team MemberRelationshipSpecialtyStart DateEnd Date Gil Gee MD PCP - Juffhab79/3/17Team MemberRelationshipSpecialtyStart DateEnd Date Gil Gee MD PCP - Yivwcbc69/3/17Team MemberRelationshipSpecialtyStart DateEnd Date Gil Gee MD PCP - Lsnazay11/3/17Team MemberRelationshipSpecialtyStart DateEnd Date Gil Gee MD PCP - Mfpldjz36/3/17Team MemberRelationshipSpecialtyStart DateEnd Date Gil Gee MD [address] [place] [address] PCP - GeneralFamily Medicine05/06/24Team MemberRelationshipSpecialtyStart DateEnd Date Gil Gee MD [address] [place] [address] PCP - GeneralFamily Medicine05/06/24Team MemberRelationshipSpecialtyStart DateEnd Date Gil Gee MD [address] [place] [address] PCP - GeneralFamily Medicine05/06/24Team MemberRelationshipSpecialtyStart DateEnd Date Gil Gee MD [address] [place] [address] PCP - GeneralFamily Medicine04/22/23 Gil Gee MD [address] [place] [address] PCP - [facility]04/15/24Team MemberRelationshipSpecialtyStart DateEnd Date Gil Gee MD [address] [place] [address] PCP - Generalmily Medicine05/06/24Team MemberRelationshipSpecialtyStart DateEnd Date Gil Gee MD [address] [place] [address] PCP - Generalmily Medicine04/22/23 Gil Gee MD [address] [place] [address] PCP - [facility]04/15/24Team MemberRelationshipSpecialtyStart DateEnd Date iGl Gee MD [address] [place] [address] PCP - GeneralFamily Medicine06/10/24Team MemberRelationshipSpecialtyStart DateEnd Date Gil Gee MD [address] [place] [address] PCP - GeneralFamily Medicine06/10/24Team MemberRelationshipSpecialtyStart DateEnd Date Gil Gee MD [address] [place] [address] PCP - Generalmily Medicine06/10/24Team MemberRelationshipSpecialtyStart DateEnd Date Gil Gee MD [address] [place] [address] PCP - Generalmily Medicine06/10/24Team MemberRelationshipSpecialtyStart DateEnd Date Gil Gee MD [address] [place] [address] PCP - Generalmily Medicine06/10/24Team MemberRelationshipSpecialtyStart DateEnd Date Gil Gee MD [address] [place] [address] PCP - GeneralFamily Medicine04/22/23 Gil Gee MD [address] [place] [address] PCP - [facility]04/15/24Team MemberRelationshipSpecialtyStart DateEnd Date Gil Gee MD [address] [place] [address] PCP - GeneralFamily Medicine04/22/23 Gil Gee MD [address] [place] [address] PCP - [facility]04/15/24Team MemberRelationshipSpecialtyStart DateEnd Date Gil Gee MD [address] [place] [address] PCP - GeneralFamily Medicine04/22/23 Gil Gee MD [address] [place] [address] PCP - [facility]04/15/24Team MemberRelationshipSpecialtyStart DateEnd Date Gil Gee MD [address] [place] [address] PCP - Generalmily Medicine06/10/24Team MemberRelationshipSpecialtyStart DateEnd Date Gil Gee MD [address] [place] [address] PCP - Generalmily Medicine06/10/24Team MemberRelationshipSpecialtyStart DateEnd Date Gil Gee MD PCP - Generalmily Medicine06/10/24Team MemberRelationshipSpecialtyStart DateEnd Date Gil Gee MD [address] [place] [address] PCP - GeneralFamily Medicine04/22/23 Gil Gee MD [address] [place] [address] PCP - [facility]04/15/24Team MemberRelationshipSpecialtyStart DateEnd Date Gil Gee MD PCP - [facility] Medicine06/10/24Team MemberRelationshipSpecialtyStart DateEnd Date [facility] Gil Gee MD [address] [place] [address] PCP - [facility]04/15/24 Team Status: Inactive Member Role Status Dates Gil Gee MD Primary Care Provider Active S tart: December 14, 2024 End: December 14, 2024Mar SAM Geettending ProviderActiveStart: December 14, 2024 End: December 14, 2024Team MemberRelationshipSpecialtyStart DateEnd Date Gil Gee MD PCP - [facility]04/22/23 Gil Gee MD [address] [place] [address] PCP - [facility]04/15/24Team MemberRelationshipSpecialtyStart DateEnd Date Gil Gee MD PCP - [facility]06/10/24Team MemberRelationshipSpecialtyStart DateEnd Date Gil Gee MD PCP - [facility] Medicine06/10/24Team MemberRelationshipSpecialtyStart DateEnd Date Gil Gee MD PCP - GeneralFamily Medicine04/22/23 Gil Gee MD [address] [place] [address] PCP - [facility]04/15/24Team MemberRelationshipSpecialtyStart DateEnd Date Gil Gee MD PCP - Generalmily Medicine Gil Gee MD PCP - [facility] Medicine04/22/23 Gil Gee MD [address] [place] [address] PCP - [facility]04/15/24Team MemberRelationshipSpecialtyStart DateEnd Date Gil Gee MD PCP - [facility] Medicine Gil [facility]ee [facility]/22/23 Gil Gee MD [address] [place] [address] PCP - [facility]04/15/24Team MemberRelationshipSpecialtyStart DateEnd Date Gil Gee MD PCP - Generalmi Medicine04/22/23 Gil Gee MD [address] [place] [address] PCP - [facility]04/15/24Team MemberRelationshipSpecialtyStart DateEnd Date Gil Gee MD PCP - [facility] Medicine06/10/24Te MemberRelationshipSpecialtyStart DateEnd Date Gil Gee MD PCP - [facility]06/10/24 (unrecognized sect ion and content) No Status Records FoundNo Status Records FoundNo Status Records FoundNo Status Records FoundNo Status Records FoundNo Status Records FoundNo Status Records Found INFORMATION SOURCE (unrecogn ized section and content) DATE CREATED AUTHOR 08/13/2021 [facility] DATE CREATED AUTHOR AUTHOR'S ORGANIZ ATION 07/21/2022 [facility] DATE CREATED AUTHOR AUTHOR'S ORGANIZ ATION 04/17/2023 [facility] DATE CREATED AUTHOR AUTHOR'S ORGANIZ ATION 03/18/2024 [facility] DATE CREATED AUTHOR AUTHOR'S ORGANIZ ATION 09/25/2024 [facility] DATE CREATED AUTHOR AUTHOR'S ORGANIZ ATION 01/10/2025 [facility] DATE CREATED AUTHOR AUTHOR'S ORGANIZ ATION 01/11/2025 [facility] Goals (unrecognized section and content) [...] BE BASED ON THE PRIMARY CLINICAL RECORDS. [employer] [facility]. provides no warranty or guarantee of the accuracy or completeness of information in this document."
--- NOTE | 2025-01-12 12:49 | CT_ITS ---
The [address] [address] Patient Name: REMI ZARCO MRN: [id number] date: 1945 Sex: M Assigned Patient Location: LAB Current Patient Location: LAB Accession/Order Number: [id number] Exam Date: 01/12/2025 13:22 Report Date: 01/12/2025 23:25 At the request of: JITENDRA GEE MD Procedure: CT chest w con CT Chest with contrast TECHNIQUE: Axial imaging with 2-D reconstruction. The CT exam was performed using one or more the following dose reduction techniques: Automated exposure control, adjustment of the MA and/or Kv according to patient size, or use of the iterative reconstruction technique. History: Lung nodule. Asbestos exposure. COMPARISON: 10/23/2021 THYROID: Unremarkable TRACHEA AND BRONCHI: Patent ESOPHAGUS: Unremarkable. HEART: Cardiomegaly left atrial appendage occlusion device PERICARDIAL EFFUSION: None CORONARY ARTERY CALCIFICATION: Moderate MEDIASTINUM: No adenopathy. No pneumoperitoneum. No mediastinal hematoma. PULMONARY ARIC: No hilar mass or adenopathy is seen. THORACIC AORTA Unremarkable LUNG NODULE unchanged 6 mm lingular segment nodule. LUNGS: Lungs are clear PLEURAL EFFUSION: None PNEUMOTHORAX: No pneumothorax seen. CHEST WALL: Unremarkable sternotomy AXILLA:Unremarkable BONY STRUCTURES similar left rib fractures. Right shoulder arthroplasty UPPER ABDOMEN: Images of the upper abdomen are noncontributory. CT/CT chest w con IMPRESSION: 6 mm lingular nodule unchanged from prior examination 10/23/2021 consistent with benign finding. Impression dictated by: Jose Moss M.D. 01/12/2025 11:25 PM Dictation Location: VideoNot.es Electronically authenticated by: [id number] Y Date: 01/12/2025 23:25
[2025-01-12 12:56] LABS: Estimated GFR (African America >60 (>=60 mL/min/1.73m^2); Estimated GFR (Non-African Ame >60 (>=60 mL/min/1.73m^2)
== END 2025-01-12 12:31 | disposition home or self-care (01) ==
LOC: LAB 12:31
PROVIDERS: Pathology Anatomic Pathology & Clinical Pathology; PCP Family Medicine; Visit Provider Family Medicine
DX: R91.1 Solitary pulmonary nodule (principal); Z77.090 Contact with and (suspected) exposure to asbestos
CPT/HCPCS: 36415; 71260; 82565; Q9967